=== PATIENT | female | born 1965 | race Caucasian/White ===

== ENCOUNTER → 2019-10-26 | Outpatient (CLI) | payer MEDICARE | LOC: WOUNDCARE 14:29 | PROVIDERS: ATTEND Surgery | DX: E11.622 Type 2 diabetes mellitus with other skin ulcer (principal); E11.52 Type 2 diabetes mellitus with diabetic peripheral angiopathy with gangrene; I70.261 Atherosclerosis of native arteries of extremities with gangrene, right leg; L97.212 Non-pressure chronic ulcer of right calf with fat layer exposed; I89.0 Lymphedema, not elsewhere classified; E66.01 Morbid (severe) obesity due to excess calories | CPT/HCPCS: 99204 ==

== ENCOUNTER → 2019-10-26 | Outpatient (CLI) | payer MEDICARE | LOC: LAB 16:15 | PROVIDERS: ATTEND Surgery | DX: E11.622 Type 2 diabetes mellitus with other skin ulcer (principal); I70.232 Atherosclerosis of native arteries of right leg with ulceration of calf; L97.212 Non-pressure chronic ulcer of right calf with fat layer exposed; I89.0 Lymphedema, not elsewhere classified; E66.01 Morbid (severe) obesity due to excess calories | CPT/HCPCS: 36415; 84134 ==

== ENCOUNTER → 2019-11-02 | Outpatient (CLI) | payer MEDICARE | LOC: WOUNDCARE 13:44 | PROVIDERS: ATTEND Surgery | DX: L97.212 Non-pressure chronic ulcer of right calf with fat layer exposed (principal); I89.0 Lymphedema, not elsewhere classified; E66.01 Morbid (severe) obesity due to excess calories; E11.622 Type 2 diabetes mellitus with other skin ulcer; E11.52 Type 2 diabetes mellitus with diabetic peripheral angiopathy with gangrene; I70.232 Atherosclerosis of native arteries of right leg with ulceration of calf | CPT/HCPCS: 99213 ==

== ENCOUNTER → 2019-11-09 | Outpatient (CLI) | payer MEDICARE | LOC: WOUNDCARE 13:32 | PROVIDERS: ATTEND Surgery | DX: L97.212 Non-pressure chronic ulcer of right calf with fat layer exposed (principal); I89.0 Lymphedema, not elsewhere classified; E66.01 Morbid (severe) obesity due to excess calories; E11.622 Type 2 diabetes mellitus with other skin ulcer; E11.52 Type 2 diabetes mellitus with diabetic peripheral angiopathy with gangrene | CPT/HCPCS: 99212 ==

== ENCOUNTER 2019-11-11 11:51 | Outpatient (RCR) | payer MEDICARE | END 2019-12-14 14:00 | disposition home or self-care (01) | PROVIDERS: ATTEND Surgery | DX: E11.622 Type 2 diabetes mellitus with other skin ulcer (principal); L97.212 Non-pressure chronic ulcer of right calf with fat layer exposed; I89.0 Lymphedema, not elsewhere classified; E66.01 Morbid (severe) obesity due to excess calories ==

== ENCOUNTER → 2019-11-16 | Outpatient (CLI) | payer MEDICARE | LOC: WOUNDCARE 13:29 | PROVIDERS: ATTEND Surgery | DX: L97.211 Non-pressure chronic ulcer of right calf limited to breakdown of skin (principal); I89.0 Lymphedema, not elsewhere classified; E66.01 Morbid (severe) obesity due to excess calories; E11.622 Type 2 diabetes mellitus with other skin ulcer; E11.52 Type 2 diabetes mellitus with diabetic peripheral angiopathy with gangrene | CPT/HCPCS: 99213 ==

== ENCOUNTER → 2019-11-30 | Outpatient (CLI) | payer MEDICARE | LOC: WOUNDCARE 13:07 | PROVIDERS: ATTEND Surgery | DX: E11.622 Type 2 diabetes mellitus with other skin ulcer (principal); L97.211 Non-pressure chronic ulcer of right calf limited to breakdown of skin; I89.0 Lymphedema, not elsewhere classified; E66.01 Morbid (severe) obesity due to excess calories | CPT/HCPCS: 99213 ==

== ENCOUNTER 2019-12-14 14:11 | Outpatient (RCR) | payer MEDICARE ==
[2020-01-16] MEDS ORDERED: IBUP-1780 PO (20:04)
[2020-01-16] MEDS ORDERED: PRD20T PO (20:04)
[2020-01-16] MEDS ORDERED: BENZ-13 PO (20:04)
[2020-01-16] MEDS ORDERED: AZIT250T12 PO (20:04)
[2020-01-16] MEDS ORDERED: ALBU90AE2 IH (20:05)
== END 2020-02-03 15:05 | disposition home or self-care (01) ==
PROVIDERS: ATTEND Family Medicine
DX: E11.622 Type 2 diabetes mellitus with other skin ulcer (principal); L97.212 Non-pressure chronic ulcer of right calf with fat layer exposed; I89.0 Lymphedema, not elsewhere classified; E66.01 Morbid (severe) obesity due to excess calories

== ENCOUNTER 2020-01-16 16:30 | Emergency (ER) | payer MEDICARE ==
[~2020-01-16] VITALS: Ht 165.1 cm; Wt 175.4 kg
[2020-01-16] MEDS ORDERED: RT-ALBUTEROL/IPRATROPIUM 3 ML (DUONEB) VIAL INH ONE ×2 (17:15→20:00)
--- NOTE | 2020-01-16 17:19 | Diagnostic Imaging Report ---
INDICATION: Hypoxia, shortness of breath. EXAMINATION: Frontal chest was obtained at 5:05 p.m. FINDINGS: Heart and mediastinal silhouette are normal in appearance. The lungs appear clear. There is no pneumothorax or pleural fluid. IMPRESSION: No acute process in the chest. Dictated by: Dictated on workstation # [id number]
[2020-01-16 18:57] LABS: HEMATOCRIT 39 % (35-52); HEMOGLOBIN 12.8 G/DL (11.5-16.0); MEAN CORPUSCULAR HEMOGLOBIN 32 PG (25-34); MEAN CORPUSCULAR HGB CONC 33 G/DL (32-36); MEAN CORPUSCULAR VOLUME 99 FL (80-99); MEAN PLATELET VOLUME 10.2 FL (7.4-10.4); PLATELET COUNT 179 10^3/uL (130-400); RED CELL DISTRIBUTION WIDTH 14.8 % (10.0-14.5); WHITE BLOOD COUNT 15.4 10^3/uL (4.3-11.0)
[2020-01-16 18:58] LABS: BASOPHILS % (AUTO) 0 % (0-10); EOSINOPHILS % (AUTO) 0 % (0-10); LYMPHOCYTES # (AUTO) 0.4 X 10^3 (1.0-4.0); LYMPHOCYTES % (AUTO) 3 % (12-44); MONOCYTES # (AUTO) 0.6 X 10^3 (0.0-1.0); MONOCYTES % (AUTO) 4 % (0-12); NEUTROPHILS # (AUTO) 14.3 X 10^3 (1.8-7.8); NEUTROPHILS % (AUTO) 93 % (42-75)
[2020-01-16 19:12] LABS: BAND NEUTROPHILS 7 %; BASOPHILS % (MANUAL) 0 %; EOSINOPHILS % (MANUAL) 0 %; LYMPHOCYTES % (MANUAL) 4 %; MONOCYTES % (MANUAL) 3 %; NEUTROPHILS % (MANUAL) 86 %
[2020-01-16] MEDS ORDERED: ACETAMINOPHEN 500 MG TAB (TYLENOL) PO ONE (19:30)
[2020-01-16 19:34] LABS: BUN/CREATININE RATIO 24; CALCIUM 9.2 MG/DL (8.5-10.1); CARBON DIOXIDE 23 MMOL/L (21-32); CHLORIDE 100 MMOL/L (98-107); CREATININE SERUM 0.58 MG/DL (0.60-1.30); GFR ESTIMATED > 60; GLUCOSE 173 MG/DL (70-105); SODIUM 137 MMOL/L (135-145)
[2020-01-16] MEDS ORDERED: predniSONE 20 MG TAB PO ONE (20:00)
[2020-01-16] MEDS ORDERED: AZITHROMYCIN 250 MG TAB (ZITHROMAX) PO ONE (20:00)
[2020-01-16] MEDS ORDERED: BENZ-13 PO (20:04)
[2020-01-16] MEDS ORDERED: PRD20T PO (20:04)
[2020-01-16] MEDS ORDERED: IBUP-1780 PO (20:04)
[2020-01-16] MEDS ORDERED: AZIT250T12 PO (20:04)
[2020-01-16] MEDS ORDERED: ALBU90AE2 IH (20:05)
--- NOTE | 2020-01-16 20:09 | ED General ---
General Chief Complaint: Respiratory Problems Stated Complaint: SOA, HIGH BP, LOW O2 Nursing Triage Note: Patient presents to the ED with c/o shortness of breath on with activity, fever, and chills. She states that her symptoms began today and when she woke up around 1:30 she was experiencing fever and chills as well. Nursing Sepsis Screen: Possible Severe Sepsis Risk Source of Information: Patient History of Present Illness Date Seen by Provider: Jan 16, 2020 Time Seen by Provider: 17:30 Initial Comments Patient is a 54-year-old female who comes to the emergency department complaining of cough, myalgias, malaise, and some shortness of breath. Her shortness of breath started earlier today but she has been ill starting last night. She does describe some fever and chills at home. No ill contacts. Patient does not have history of congestive heart failure. She does not describe worsening orthopnea or dyspnea on exertion. Allergies and Home Medications Allergies Coded Allergies: adhesive tape (Unverified Allergy, Unknown, 01/16/20) Home Medications Albuterol Sulfate 90 Mcg Aer.pw.bas, 90 MCG IH Q4H Prescribed by: MADELINE WOLFF on 01/16/202004 Azithromycin 250 Mg Tablet, 250 MG PO DAILY Prescribed by: MADELINE WOLFF on 01/16/202003 Benzonatate 100 Mg Capsule, 100 MG PO TID Prescribed by: MADELINE WOLFF on 01/16/202003 Ibuprofen 800 Mg Tablet, 800 MG PO Q8H PRN for PAIN-MILD Prescribed by: MADELINE WOLFF on 01/16/202003 Prednisone 20 Mg Tab, 40 MG PO DAILY Prescribed by: MADELINE WOLFF on 01/16/202003 Patient Home Medication List Home Medication List Reviewed: Yes Review of Systems Review of Systems Constitutional: see HPI EENTM: nose congestion Respiratory: cough Cardiovascular: no symptoms reported Genitourinary: no symptoms reported Musculoskeletal: muscle stiffness Skin: no symptoms reported All Other Systems Reviewed Negative Unless Noted: Yes Past Tjazqem-Izqvpp-Nuzmmb Hx Patient Social History Alcohol Use: Denies Use Recreational Drug Use: No Smoking Status: Never a Smoker 2nd Hand Smoke Exposure: No Recent Foreign Travel: No Contact w/Someone Who Travel: No Recent Infectious Disease Expo: No Recent Hopitalizations: No Physical Abuse: No Sexual Abuse: No Mistreated: No Fear: No Seasonal Allergies Seasonal Allergies: No Past Medical History Surgeries: Yes (Gastric bypass) Gallbladder Respiratory: No Cardiac: Yes Chronic Edema/Swelling, High Cholesterol, Hypertension Neurological: No Genitourinary: No Gastrointestinal: Yes Gastroesophageal Reflux Musculoskeletal: No (Restless leg syndrome) Endocrine: Yes Diabetes, Non-Insulin dep HEENT: No Cancer: No Psychosocial: Yes Anxiety, Depression Integumentary: No Blood Disorders: No Physical Exam Vital Signs Vital Signs - First Documented 01/16/20 16:40 Temp 38.2 Pulse 98 Resp 22 B/P (MAP) 190/60 (103) Pulse Ox 97 O2 Delivery Room Air Capillary Refill : Less Than 3 Seconds Height, Weight, BMI Height: '" Weight: lbs. oz. kg; 64.00 BMI Method: General Appearance: No Apparent Distress, WD/WN HEENT: PERRL/EOMI, TMs Normal Neck: Full Range of Motion, Supple Respiratory: Other (some congested lung sounds but overall good air movement and no increased work of breathing while at rest) Cardiovascular: Regular Rate, Rhythm Rectal: Normal Exam Extremity: Normal Capillary Refill Neurologic/Psychiatric: Alert, Oriented x3 Skin: Normal Color, Warm/Dry Progress/Results/Core Measures Suspected Sepsis Recent Fever Within 48 Hours: Yes Infection Criteria Present: Suspected New Infection New/Unexplained Altered Menta: No Sepsis Screen: Possible Severe Sepsis Risk SIRS Temperature: Pulse: 98 Respiratory Rate: 22 Laboratory Tests 01/16/20 08:48: White Blood Count 15.4H Blood Pressure 190 /60 Mean: 103 Laboratory Tests 01/16/20 08:48: Creatinine 0.58L, Platelet Count 179 Results/Orders Lab Results Laboratory Tests Test 01/16/20 08:48 Range/Units White Blood Count 15.4 H 4.3-11.0 10^3/uL Red Blood Count 3.98 L 4.35-5.85 10^6/uL Hemoglobin 12.8 11.5-16.0 G/DL Hematocrit 39 35-52 % Mean Corpuscular Volume 99 80-99 FL Mean Corpuscular Hemoglobin 32 25-34 PG Mean Corpuscular Hemoglobin Concent 33 32-36 G/DL Red Cell Distribution Width 14.8 H 10.0-14.5 % Platelet Count 179 130-400 10^3/uL Mean Platelet Volume 10.2 7.4-10.4 FL Neutrophils (%) (Auto) 93 H 42-75 % Lymphocytes (%) (Auto) 3 L 12-44 % Monocytes (%) (Auto) 4 0-12 % Eosinophils (%) (Auto) 0 0-10 % Basophils (%) (Auto) 0 0-10 % Neutrophils # (Auto) 14.3 H 1.8-7.8 X 10^3 Lymphocytes # (Auto) 0.4 L 1.0-4.0 X 10^3 Monocytes # (Auto) 0.6 0.0-1.0 X 10^3 Eosinophils # (Auto) 0.0 0.0-0.3 10^3/uL Basophils # (Auto) 0.0 0.0-0.1 10^3/uL Neutrophils % (Manual) 86 % Lymphocytes % (Manual) 4 % Monocytes % (Manual) 3 % Eosinophils % (Manual) 0 % Basophils % (Manual) 0 % Band Neutrophils 7 % Sodium Level 137 135-145 MMOL/L Potassium Level 4.0 3.6-5.0 MMOL/L Chloride Level 100 98-107 MMOL/L Carbon Dioxide Level 23 21-32 MMOL/L Anion Gap 14 5-14 MMOL/L Blood Urea Nitrogen 14 7-18 MG/DL Creatinine 0.58 L 0.60-1.30 MG/DL Estimat Glomerular Filtration Rate > 60 BUN/Creatinine Ratio 24 Glucose Level 173 H 70-105 MG/DL Calcium Level 9.2 8.5-10.1 MG/DL Troponin I < 0.30 <0.30 NG/ML Pro-B-Type Natriuretic Peptide 414.6 H <75.0 PG/ML Micro Results Microbiology 01/16/20 Influenza Types A,B Antigen (JOSH) - Final, Complete My Orders Orders - MADELINE WOLFF DO Influenza A And B Antigens (01/16/20 16:50) Chest 1 View Ap/Pa Only (01/16/20 16:50) Albuterol/Ipra Inhalation Soln (Duoneb I (01/16/20 17:15) Svn Small Volume Nebulizer (01/16/20 17:14) Ed Iv/Invasive Line Start (01/16/20 17:27) Cbc With Automated Diff (01/16/20 17:27) Basic Metabolic Panel (01/16/20 17:27) Probnp Fs (01/16/20 17:27) Troponin I Fs (01/16/20 17:27) Continuous Ekg Monitoring (01/16/20 17:27) Manual Differential (01/16/20 08:48) Acetaminophen Tablet (Tylenol Tablet) (01/16/20 19:30) Azithromycin Tablet (Zithromax Tablet) (01/16/20 20:00) Prednisone Tablet (Deltasone Tablet) (01/16/20 20:00) Albuterol/Ipra Inhalation Soln (Duoneb I (01/16/20 20:00) Svn Small Volume Nebulizer (01/16/20 19:50) Medications Given in ED Current Medications Medications Dose Ordered Sig/Fede Route Start Time Stop Time Status Last Admin Dose Admin Acetaminophen 1,000 mg ONCE ONCE PO 01/16/20 19:30 01/16/20 19:31 DC 01/16/20 19:31 1,000 MG Albuterol/ Ipratropium 3 ml ONCE ONCE INH 01/16/20 17:15 01/16/20 17:16 DC 01/16/20 17:35 3 ML Vital Signs/I&O 01/16/20 16:40 Temp 38.2 Pulse 98 Resp 22 B/P (MAP) 190/60 (103) Pulse Ox 97 O2 Delivery Room Air Capillary Refill : Less Than 3 Seconds Blood Pressure Mean: 103 Progress Note : Time: 20:09 Progress Note ED summary: Patient is an obese female who comes to the ER with shortness of breath and productive cough. She became ill over the last 24 hours and her symptoms came on suddenly. Although she has a syndrome very suspicious for influenza, her screening test in the ER is negative. She had some congested lung sounds on arrival and was given a DuoNeb treatment. This completely resolved her symptoms and her lungs were entirely clear after that. Prior to discharge, she was given an additional nebulized treatment and continued to feel well. Her x- ray was negative. She was noted to have mild elevation of white count. Suspect the patient either to actually be flu positive or have a cold pneumonia. She does not meet admission criteria and has no hypoxia and her dyspnea symptoms are improved. Patient is discharged home. She is given medication for symptom relief along with azithromycin and prednisone over the next 4 days. The first dose of these medications was given in the ER. Patient was agreeable to this plan of care. She will follow-up with her primary care doctor or come back to the ER for any new or worsening symptoms. Departure Impression Primary Impression: Pneumonia Disposition: 01 HOME, SELF-CARE Condition: Improved Departure-Patient Inst. Patient Instructions: Pneumonia, Adult (DC) Scripts Albuterol Sulfate (Proair Digihaler) 90 Mcg Aer.pw.bas 90 MCG IH Q4H for Wheezing, #1 INHALER Prov: MADELINE WOLFF DO 01/16/20 Benzonatate (Tessalon Perle) 100 Mg Capsule 100 MG PO TID for Cough, #21 CAP Prov: MADELINE WOLFF DO 01/16/20 Ibuprofen (Ibuprofen) 800 Mg Tablet 800 MG PO Q8H PRN for PAIN-MILD, #21 TAB Prov: MADELINE WOLFF DO 01/16/20 Prednisone (Prednisone) 20 Mg Tab 40 MG PO DAILY for 4 Days, #8 TAB 0 Refills Prov: MADELINE WOLFF DO 01/16/20 Azithromycin (Azithromycin) 250 Mg Tablet 250 MG PO DAILY, #4 TAB 0 Refills Prov: MADELINE WOLFF DO 01/16/20 MADELINE WOLFF DO Jan 16, 2020 20:08
[2020-01-16 20:36] VITALS: BP 138/62
== END 2020-01-16 20:37 | disposition home or self-care (01) ==
LOC: EDUNIT# 16:30 → ER FS 16:31
DX: J18.9 Pneumonia, unspecified organism (principal); E11.9 Type 2 diabetes mellitus without complications; Z88.8 Allergy status to other drugs, medicaments and biological substances
CPT/HCPCS: 36415; 71045; 80048; 83880; 84484; 85007; 85027; 87804

== ENCOUNTER 2020-02-12 09:16 | Emergency (ER) | payer MEDICARE ==
[~2020-02-12] VITALS: Ht 170.1 cm; Wt 166.6 kg
[~2020-02-12 09:16] MED LIST: ALBU90AE2 IH; AZIT250T12 PO; BENZ-13 PO; IBUP-1780 PO; PRD20T PO
[2020-02-12] MEDS ORDERED: KETOROLAC 60 MG/2 ML VIAL IM STA (09:26)
[2020-02-12] MEDS ORDERED: ORPHENADRINE 60 MG/2 ML (NORFLEX) AMP IM STA (09:26)
--- NOTE | 2020-02-12 09:26 | ED General ---
General Stated Complaint: BACK PAIN, LEG NUMBNESS Source of Information: Patient Exam Limitations: No Limitations History of Present Illness Date Seen by Provider: Feb 12, 2020 Time Seen by Provider: 09:20 Initial Comments 54-year-old female presents with a multitude of issues. Patient reports decreased appetite. Constipation. Patient reports that she's had low back pain for at least a month. That now the pain radiates down her left leg. She reports she been constipated for 6 days. She is tried milk of magnesium 4 times with no relief. Patient pain is in the left lumbar region. She does not have any acute i njury. Patient reports a lot of her symptoms started after a urinary tract infection and medication for it. Patient denies any narcotics. He should does have a history of a gastric sleeve seizure. She does not have any fevers or chills. She denies any urinary tract symptoms at this time Allergies and Home Medications Allergies Coded Allergies: adhesive tape (Unverified Allergy, Unknown, 01/16/20) Home Medications Albuterol Sulfate 90 Mcg Aer.pw.bas, 90 MCG IH Q4H Prescribed by: MADELINE WOLFF on 01/16/202004 Azithromycin 250 Mg Tablet, 250 MG PO DAILY Prescribed by: MADELINE WOLFF on 01/16/202003 Benzonatate 100 Mg Capsule, 100 MG PO TID Prescribed by: MADELINE WOLFF on 01/16/202003 Ibuprofen 800 Mg Tablet, 800 MG PO Q8H PRN for PAIN-MILD Prescribed by: MADELINE WOLFF on 01/16/202003 Prednisone 20 Mg Tab, 40 MG PO DAILY Prescribed by: MADELINE WOLFF on 01/16/202003 Patient Home Medication List Home Medication List Reviewed: Yes Review of Systems Review of Systems Constitutional: No chills; malaise EENTM: no symptoms reported Respiratory: No cough Cardiovascular: no symptoms reported Gastrointestinal: constipation, loss of appetite Musculoskeletal: see HPI, back pain Skin: no symptoms reported Psychiatric/Neurological: See HPI Past Pchsuaa-Etswcv-Frtyhs Hx Past Med/Social Hx: Reviewed Nursing Past Med/Soc Hx Patient Social History 2nd Hand Smoke Exposure: No Recent Hopitalizations: No Seasonal Allergies Seasonal Allergies: No Past Medical History Surgeries: Yes (Gastric bypass) Gallbladder Respiratory: No Cardiac: Yes Chronic Edema/Swelling, High Cholesterol, Hypertension Neurological: No Genitourinary: No Gastrointestinal: Yes Gastroesophageal Reflux Musculoskeletal: No (Restless leg syndrome) Endocrine: Yes Diabetes, Non-Insulin dep HEENT: No Cancer: No Psychosocial: Yes Anxiety, Depression Integumentary: No Blood Disorders: No Physical Exam Vital Signs Vital Signs - First Documented 02/12/20 09:21 Temp 36.9 Pulse 93 Resp 20 B/P (MAP) 160/69 (99) Pulse Ox 98 O2 Delivery Room Air Capillary Refill : Height, Weight, BMI Height: '" Weight: lbs. oz. kg; 64.00 BMI Method: General Appearance: Obese (morbid), Other (very dramatic and animated) Eyes: Bilateral Eye Normal Inspection Neck: Non Tender, Supple Respiratory: Lungs Clear, Normal Breath Sounds, No Accessory Muscle Use Cardiovascular: Regular Rate, Rhythm Gastrointestinal: Non Tender, Soft Back: No Vertebral Tenderness, Other (tenderness to left lower region) Neurologic/Psychiatric: Alert, Oriented x3 Skin: No Rash Progress/Results/Core Measures Suspected Sepsis SIRS Temperature: Pulse: Respiratory Rate: Laboratory Tests 02/12/20 10:12: White Blood Count 9.2 Blood Pressure / Mean: Laboratory Tests 02/12/20 10:12: Creatinine 0.52L, Platelet Count 305, Total Bilirubin 0.4 Results/Orders Lab Results Laboratory Tests Test 02/12/20 10:12 Range/Units White Blood Count 9.2 4.3-11.0 10^3/uL Red Blood Count 3.67 L 4.35-5.85 10^6/uL Hemoglobin 11.4 L 11.5-16.0 G/DL Hematocrit 35 35-52 % Mean Corpuscular Volume 96 80-99 FL Mean Corpuscular Hemoglobin 31 25-34 PG Mean Corpuscular Hemoglobin Concent 32 32-36 G/DL Red Cell Distribution Width 14.5 10.0-14.5 % Platelet Count 305 130-400 10^3/uL Mean Platelet Volume 9.5 7.4-10.4 FL Neutrophils (%) (Auto) 80 H 42-75 % Lymphocytes (%) (Auto) 9 L 12-44 % Monocytes (%) (Auto) 9 0-12 % Eosinophils (%) (Auto) 1 0-10 % Basophils (%) (Auto) 0 0-10 % Neutrophils # (Auto) 7.4 1.8-7.8 X 10^3 Lymphocytes # (Auto) 0.9 L 1.0-4.0 X 10^3 Monocytes # (Auto) 0.8 0.0-1.0 X 10^3 Eosinophils # (Auto) 0.1 0.0-0.3 10^3/uL Basophils # (Auto) 0.0 0.0-0.1 10^3/uL Sodium Level 140 135-145 MMOL/L Potassium Level 3.5 L 3.6-5.0 MMOL/L Chloride Level 101 98-107 MMOL/L Carbon Dioxide Level 25 21-32 MMOL/L Anion Gap 14 5-14 MMOL/L Blood Urea Nitrogen 11 7-18 MG/DL Creatinine 0.52 L 0.60-1.30 MG/DL Estimat Glomerular Filtration Rate > 60 BUN/Creatinine Ratio 21 Glucose Level 166 H 70-105 MG/DL Calcium Level 9.3 8.5-10.1 MG/DL Corrected Calcium 9.9 8.5-10.1 MG/DL Total Bilirubin 0.4 0.1-1.0 MG/DL Aspartate Amino Transf (AST/SGOT) 19 5-34 U/L Alanine Aminotransferase (ALT/SGPT) 18 0-55 U/L Alkaline Phosphatase 146 H 40-136 U/L Total Protein 8.7 H 6.4-8.2 GM/DL Albumin 3.3 3.2-4.5 GM/DL Micro Results Microbiology 02/12/20 Influenza Types A,B Antigen (JOSH) - Final, Complete My Orders Orders - DI ARAGON DO Cbc With Automated Diff (02/12/20 09:26) Comprehensive Metabolic Panel (02/12/20 09:26) Ua Culture If Indicated (02/12/20:26) Influenza A And B Antigens (02/12/20:26) Abdomen Flat & Upright/Decub (02/12/20 09:26) Lumbar Spine 2 Or 3 View (02/12/20 09:26) Ketorolac Injection (Toradol Injection) (02/12/20 09:26) Orphenadrine Injection (Norflex Injectio (02/12/20 09:26) Magnesium Citrate Oral Soln (Citrate Of (02/12/20 10:15) Hyoscyamine Sl Tablet (Levsin Sl Tablet) (02/12/20 10:45) Medications Given in ED Current Medications Medications Dose Ordered Sig/Fede Route Start Time Stop Time Status Last Admin Dose Admin Magnesium Citrate 300 ml ONCE ONCE PO 02/12/20 10:15 02/12/20 10:16 DC 02/12/20 10:25 300 ML Vital Signs/I&O 02/12/20 09:21 Temp 36.9 Pulse 93 Resp 20 B/P (MAP) 160/69 (99) Pulse Ox 98 O2 Delivery Room Air Capillary Refill : Progress Note : Time: 11:07 Progress Note Patient with lower lumbar spasm with scatica. That improved significantly with Toradol and Norflex. Patient also has significant constipation. Patient will be prescribed Flexeril for her sciatica. Patient was given mag citrate for her constipation. She was offered an enema but declined at this time. I recommend she use MiraLAX at least 5 times daily until soft daily stool with plenty of fluids and ambulation. She should return to the ER if symptoms worsen. Patient prefers to try the mag citrate and MiraLAX before having the obtain an enema. She is discharged home in stable condition. Diagnostic Imaging Diagonstic Imaging: Xray Comments NAME: TRUNG HASSAN [facility] REC#: [id number] PT STATUS: REG ER : 1965 PHYSICIAN: DI ARAGON DO ADMIT DATE: 02/12/20/ER FS Draft Date of Exam:02/12/20 ABDOMEN FLAT & UPRIGHT/DECUB INDICATION: Severe abdominal pain. COMPARISON: None. DISCUSSION: Five views of the abdomen were obtained. Constipation is noted. No pneumatosis or pneumoperitoneum. No abnormal small bowel loops are identified. The gallbladder appears to be surgically absent. The lung bases are unremarkable. Advanced degenerative disease noted within the lumbar spine. IMPRESSION: 1. Constipation DILLAN: TRUNG HASSAN MED REC#: [id number] PT STATUS: REG ER : 1965 PHYSICIAN: DI ARAGON DO ADMIT DATE: 02/12/20/ER FS Draft Date of Exam:02/12/20 LUMBAR SPINE 2 OR 3 VIEW INDICATION: Severe low back pain with lower extremity radiculopathy. COMPARISON: None. DISCUSSION: Three views of the lumbosacral spine were obtained. Mild levoscoliosis is noted. Advanced facet arthropathy is noted diffusely. Advanced degenerative disc disease is present from L2 through S1. Mild T11 compression deformity, likely chronic. No acute fracture or subluxation identified. Soft tissues are unremarkable. IMPRESSION: 1. Advanced degenerative disease of the lumbar spine as described. No acute fracture. Mild T11 compression deformity appears chronic. Departure Impression Primary Impression: Lumbar radiculopathy Additional Impressions: Sciatica of left side Constipation Qualified Codes: K59.00 - Constipation, unspecified Disposition: HOME, SELF-CARE Condition: Stable Departure-Patient Inst. Referrals: SELF,KEYSHA NGUYỄN (PCP/Family) Primary Care Physician Patient Instructions: Sciatica Exercises, Constipation in Adults, Sciatica (DC), Lumbar Muscle Strain (DC) Add. Discharge Instructions: MiraLAX at least 5 times daily, drink plenty of fluids, ambulation for constipation Emergency department focuses on treating and ruling out life-threatening diseases. Whenever possible, a diagnosis is given. However, most patients are given an impression based on their history, physical exam, and workup during your brief time in the ER. Information about probable diagnosis and other educational material has been provided. Please take the time to read and understand this information. It is very important that you follow up with a physician as discussed during the visit today. Failure to adhere to your follow-up instructions may lead to severe disability, injury, or so please make sure to keep your appointments or obtain one as requested. Please keep in mind the emergency department is not designed to your primary care or "family doctor" and nonurgent issues are best evaluated by an outpatient physician Scripts Hyoscyamine Sulfate (Levsin-Sl) 0.125 Mg Tab.subl 0.125 MG SL Q4H, #10 TAB 0 Refills Prov: AURELIANO ARAGONR L DO 02/12/20 Cyclobenzaprine HCl (Cyclobenzaprine HCl) 10 Mg Tablet 10 MG PO Q8H PRN for SPASMS, #15 TAB 0 Refills Prov: AURELIANO ARAGONR L DO 02/12/20 DI ARAGON DO Feb 12, 2020 09:26
--- NOTE | 2020-02-12 10:09 | Diagnostic Imaging Report ---
INDICATION: Severe abdominal pain. COMPARISON: None. DISCUSSION: Five views of the abdomen were obtained. Constipation is noted. No pneumatosis or pneumoperitoneum. No abnormal small bowel loops are identified. The gallbladder appears to be surgically absent. The lung bases are unremarkable. Advanced degenerative disease noted within the lumbar spine. IMPRESSION: 1. Constipation. Dictated by: Dictated on workstation # [id number]
--- NOTE | 2020-02-12 10:10 | Diagnostic Imaging Report ---
INDICATION: Severe low back pain with lower extremity radiculopathy. COMPARISON: None. DISCUSSION: Three views of the lumbosacral spine were obtained. Mild levoscoliosis is noted. Advanced facet arthropathy is noted diffusely. Advanced degenerative disc disease is present from L2 through S1. Mild T11 compression deformity, likely chronic. No acute fracture or subluxation identified. Soft tissues are unremarkable. IMPRESSION: 1. Advanced degenerative disease of the lumbar spine as described. No acute fracture. Mild T11 compression deformity appears chronic. Dictated by: Dictated on workstation # [id number]
[2020-02-12] MEDS ORDERED: MAGNESIUM CITRATE 300 ML BTL PO ONE (10:15)
[2020-02-12 10:21] LABS: WHITE BLOOD COUNT 9.2 10^3/uL (4.3-11.0)
[2020-02-12 10:22] LABS: BASOPHILS % (AUTO) 0 % (0-10); EOSINOPHILS % (AUTO) 1 % (0-10); HEMATOCRIT 35 % (35-52); HEMOGLOBIN 11.4 G/DL (11.5-16.0); LYMPHOCYTES # (AUTO) 0.9 X 10^3 (1.0-4.0); LYMPHOCYTES % (AUTO) 9 % (12-44); MEAN CORPUSCULAR HEMOGLOBIN 31 PG (25-34); MEAN CORPUSCULAR HGB CONC 32 G/DL (32-36); MEAN CORPUSCULAR VOLUME 96 FL (80-99); MEAN PLATELET VOLUME 9.5 FL (7.4-10.4); MONOCYTES % (AUTO) 9 % (0-12); NEUTROPHILS # (AUTO) 7.4 X 10^3 (1.8-7.8); NEUTROPHILS % (AUTO) 80 % (42-75); PLATELET COUNT 305 10^3/uL (130-400); RED CELL DISTRIBUTION WIDTH 14.5 % (10.0-14.5)
[2020-02-12 10:23] LABS: EOSINOPHILS # (AUTO) 0.1 10^3/uL (0.0-0.3); MONOCYTES # (AUTO) 0.8 X 10^3 (0.0-1.0)
[2020-02-12] MEDS ORDERED: HYOSCYAMINE 0.125 MG (LEVSIN) TAB SL ONE (10:45)
[2020-02-12 10:46] LABS: ALANINE AMINOTRANSFERASE 18 U/L (0-55); ALBUMIN 3.3 GM/DL (3.2-4.5); ALKALINE PHOSPHATASE 146 U/L (40-136); BILIRUBIN,TOTAL 0.4 MG/DL (0.1-1.0); BUN/CREATININE RATIO 21; CALCIUM 9.3 MG/DL (8.5-10.1); CARBON DIOXIDE 25 MMOL/L (21-32); CHLORIDE 101 MMOL/L (98-107); CREATININE SERUM 0.52 MG/DL (0.60-1.30); GFR ESTIMATED > 60; GLUCOSE 166 MG/DL (70-105); POTASSIUM 3.5 MMOL/L (3.6-5.0); SODIUM 140 MMOL/L (135-145); TOTAL PROTEIN 8.7 GM/DL (6.4-8.2)
[2020-02-12] MEDS ORDERED: CYCL10TA9 PO (11:13)
[2020-02-12] MEDS ORDERED: HYOS0.1283 SL (11:13)
[2020-02-12 11:23] VITALS: BP 133/46
--- OUTSIDE RECORDS SUMMARY | 2020-02-13 18:21 | XMS REPORT | Continuity of Care Document ---
Author Organization Unknown Address Unknown Phone Unavailable Allergies Active Description Code Type Severity Reaction Onset Reported/Identified Relationship to Patient Clinical Status Yes adhesive tape [id number] Sascha hammonds Allergy Unknown N/A 01/16/2020 Medications There is no data. Problems Date Dx Coded Attending Type Code Diagnosis Diagnosed By 10/30/1399 EDUARDO FISHER MD, Ot E11.622 TYPE 2 DIABETES MELLITUS WITH OTHER SKIN 10/30/1399 EDUARDO FISHER MD, Ot E66.01 MORBID (SEVERE) OBESITY DUE TO EXCESS CA 10/30/1399 EDUARDO FISHER MD, Ot I89 .0 LYMPHEDEMA, NOT ELSEWHERE CLASSIFIED 10/30/1399 EDUARDO FISHER MD, Ot 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 ULCER OF RIGHT CALF 10/30/1504 KEYSHA KINGSLEY MD, Ot E11.62 2 TYPE 2 DIABETES MELLITUS WITH OTHER SKIN 10/30/1504 KEYSHA KINGSLEY MD, Ot E66.01 MORBID (SEVERE) OBESITY DUE TO EXCESS CA 10/30/1504 KEYSHA KINGSLEY MD, Ot I89.0 LYMPHEDEMA, NOT ELSEWHERE CLASSIFIED 10/30/1504 KEYSHA KINGSLEY MD, Ot L97.21 2 NON-PRESSURE CHRONIC ULCER OF RIGHT CALF 10/29/2019 EDUARDO FISHER MD Ot E11.52 TYPE 2 DIABETES W DIABETIC PERIPHERAL AN 10/29/2019 EDUARDO FISHER MD, Ot E11.622 TYPE 2 DIABETES MELLITUS WITH OTHER SKIN 10/29/2019 EDUARDO FISHER MD, Ot E66.01 MORBID (SEVERE) OBESITY DUE TO EXCESS CA 10/29/2019 EDUARDO FISHER MD Ot I70.261 ATHSCL HO[place] ARTERIES OF EXTREMITIES W 10/29/2019 EDUARDO FISHER MD, Ot I89 .0 LYMPHEDEMA, NOT ELSEWHERE CLASSIFIED 10/29/2019 EDUARDO FISHER MD, Ot 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 ULCER OF RIGHT CALF 11/03/2019 EDUARDO FISHER MD, Ot E11.622 TYPE 2 DIABETES MELLITUS WITH OTHER SKIN 11/03/2019 EDUARDO FISHER MD, Ot E66.01 MORBID (SEVERE) OBESITY DUE TO EXCESS CA 11/03/2019 EDUARDO FISHER MD, Ot 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 [place]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 11/03/2019 EDUARDO FISHER MD, Ot I89 .0 LYMPHEDEMA, NOT ELSEWHERE CLASSIFIED 11/03/2019 EDUARDO FISHER MD, Ot 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 ULCER OF RIGHT CALF 11/26/2019 EDUARDO FISHER MD, Ot E11.52 TYPE 2 DIABETES W DIABETIC PERIPHERAL AN 11/26/2019 EDUARDO FISHER MD, Ot E11.622 TYPE 2 DIABETES MELLITUS WITH OTHER SKIN 11/26/2019 EDUARDO FISHER MD, Ot E66.01 MORBID (SEVERE) OBESITY DUE TO EXCESS CA 11/26/2019 EDUARDO FISHER MD, Ot I70.261 ATHSCL [place] ARTERIES OF EXTREMITIES W 11/26/2019 EDUARDO FISHER MD, Ot I89 .0 LYMPHEDEMA, NOT ELSEWHERE CLASSIFIED 11/26/2019 EDUARDO FISHER MD, Ot 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 ULCER OF RIGHT CALF 11/26/2019 EDUARDO FISHER MD, Ot E11.622 TYPE 2 DIABETES MELLITUS WITH OTHER SKIN 11/26/2019 EDUARDO FISHER MD, Ot E66.01 MORBID (SEVERE) OBESITY DUE TO EXCESS CA 11/26/2019 EDUARDO FISHER MD, Ot 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 [place]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 11/26/2019 EDUARDO FISHER MD, Ot I89 .0 LYMPHEDEMA, NOT ELSEWHERE CLASSIFIED 11/26/2019 EDUARDO FISHER MD, Ot 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 ULCER OF RIGHT CALF 11/29/2019 EDUARDO FISHER MD, Ot E11.52 TYPE 2 DIABETES W DIABETIC PERIPHERAL AN 11/29/2019 EDUARDO FISHER MD, Ot E11.622 TYPE 2 DIABETES MELLITUS WITH OTHER SKIN 11/29/2019 EDUARDO FISHER MD, Ot E66.01 MORBID (SEVERE) OBESITY DUE TO EXCESS CA 11/29/2019 EDUARDO FISHER MD, Ot 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 [place]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 11/29/2019 EDUARDO FISHER MD, Ot I89 .0 LYMPHEDEMA, NOT ELSEWHERE CLASSIFIED 11/29/2019 EDUARDO FISHER MD, Ot 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 ULCER OF RIGHT CALF 11/30/2019 EDUARDO FISHER MD, Ot E11.52 TYPE 2 DIABETES W DIABETIC PERIPHERAL AN 11/30/2019 EDUARDO FISHER MD, Ot E11.622 TYPE 2 DIABETES MELLITUS WITH OTHER SKIN 11/30/2019 EDUARDO FISHER MD Ot E66.01 MORBID (SEVERE) OBESITY DUE TO EXCESS CA 11/30/2019 EDUARDO FISHER MD, Ot I89 .0 LYMPHEDEMA, NOT ELSEWHERE CLASSIFIED 11/30/2019 EDUARDO FISHER MD Ot 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 ULCER OF RIGHT CALF 12/02/2019 EDUARDO FISHER MD, Ot E11.622 TYPE 2 DIABETES MELLITUS WITH OTHER SKIN 12/02/2019 EDUARDO FISHER MD, Ot E66.01 MORBID (SEVERE) OBESITY DUE TO EXCESS CA 12/02/2019 EDUARDO FISHER MD, Ot I89 .0 LYMPHEDEMA, NOT ELSEWHERE CLASSIFIED 12/02/2019 EDUARDO FISHER MD Ot L97.211 NON-PRS CHRONIC ULCER OF RIGHT CALF LIMI 12/07/2019 EDUARDO FISHER MD, Ot E11.52 TYPE 2 DIABETES W DIABETIC PERIPHERAL AN 12/07/2019 EDUARDO FISHER MD Ot E11.622 TYPE 2 DIABETES MELLITUS WITH OTHER SKIN 12/07/2019 EDUARDO FISHER MD Ot E66.01 MORBID (SEVERE) OBESITY DUE TO EXCESS CA 12/07/2019 EDUARDO FISHER MD, Ot I89 .0 LYMPHEDEMA, NOT ELSEWHERE CLASSIFIED 12/07/2019 EDUARDO FISHER MD Ot L97.211 NON-PRS CHRONIC ULCER OF RIGHT CALF LIMI 12/14/2019 EDUARDO FISHER MD, Ot E11.622 TYPE 2 DIABETES MELLITUS WITH OTHER SKIN 12/14/2019 EDUARDO FISHER MD Ot E66.01 MORBID (SEVERE) OBESITY DUE TO EXCESS CA 12/14/2019 EDUARDO FISHER MD Ot I89 .0 LYMPHEDEMA, NOT ELSEWHERE CLASSIFIED 12/14/2019 EDUARDO FISHER MD Ot 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 ULCER OF RIGHT CALF 12/14/2019 KEYSHA KINGSLEY MD, Ot E11.62 2 TYPE 2 DIABETES MELLITUS WITH OTHER SKIN 12/14/2019 KEYSHA KINGSLEY MD Ot E66.01 MORBID (SEVERE) OBESITY DUE TO EXCESS CA 12/14/2019 KEYSHA KINGSLEY MD Ot I89.0 LYMPHEDEMA, NOT ELSEWHERE CLASSIFIED 12/14/2019 KEYSHA KINGSLEY MD Ot L97.21 2 NON-PRESSURE CHRONIC ULCER OF RIGHT CALF 12/14/2019 SELF KEYSHA NGUYỄN Ot E11.62 2 TYPE 2 DIABETES MELLITUS WITH OTHER SKIN 12/14/2019 SELF KEYSHA NGUYỄN Ot E66.01 MORBID (SEVERE) OBESITY DUE TO EXCESS CA 12/14/2019 SELF KEYSHA NGUYỄN Ot I89.0 LYMPHEDEMA, NOT ELSEWHERE CLASSIFIED 12/14/2019 SELF KEYSHA NGUYỄN Ot L97.21 2 NON-PRESSURE CHRONIC ULCER OF RIGHT CALF 12/16/2019 SELF KEYSHA NGUYỄN Ot E11.62 2 TYPE 2 DIABETES MELLITUS WITH OTHER SKIN 12/16/2019 SELF KEYSHA NGUYỄN Ot E66.01 MORBID (SEVERE) OBESITY DUE TO EXCESS CA 12/16/2019 SELF KEYSHA NGUYỄN Ot I89.0 LYMPHEDEMA, NOT ELSEWHERE CLASSIFIED 12/16/2019 SELF KEYSHA NGUYỄN Ot L97.21 2 NON-PRESSURE CHRONIC ULCER OF RIGHT CALF 12/22/2019 EDUARDO FISHER MD, Ot E11.622 TYPE 2 DIABETES MELLITUS WITH OTHER SKIN 12/22/2019 EDUARDO FISHER MD, Ot E66.01 MORBID (SEVERE) OBESITY DUE TO EXCESS CA 12/22/2019 EDUARDO FISHER MD, Ot I89 .0 LYMPHEDEMA, NOT ELSEWHERE CLASSIFIED 12/22/2019 EDUARDO FISHER MD, Ot L97.211 NON-PRS CHRONIC ULCER OF RIGHT CALF LIMI 01/16/2020 MADELINE WOLFF DO Ot E11 .9 TYPE 2 DIABETES MELLITUS WITHOUT COMPLIC 01/16/2020 MADELINE WOLFF DO Ot J18 .9 PNEUMONIA, UNSPECIFIED ORGANISM 01/16/2020 MADELINE WOLFF DO Ot R05 COUGH 01/16/2020 MADELINE WOLFF DO Ot Z88 .8 ALLERGY STATUS TO OT DRUG/MEDS/BIOL SUB 01/16/2020 EDUARDO FISHER MD Ot E11.52 TYPE 2 DIABETES W DIABETIC PERIPHERAL AN 01/16/2020 EDUARDO FISHER MD, Ot E11.622 TYPE 2 DIABETES MELLITUS WITH OTHER SKIN 01/16/2020 EDUARDO FISHER MD, Ot E66.01 MORBID (SEVERE) OBESITY DUE TO EXCESS CA 01/16/2020 EDUARDO FISHER MD Ot I70.261 ATHSCL [place] ARTERIES OF EXTREMITIES W 01/16/2020 EDUARDO FISHER MD, Ot I89 .0 LYMPHEDEMA, NOT ELSEWHERE CLASSIFIED 01/16/2020 EDUARDO FISHER MD, Ot 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 ULCER OF RIGHT CALF 01/16/2020 EDUARDO FISHER MD, Ot E11.622 TYPE 2 DIABETES MELLITUS WITH OTHER SKIN 01/16/2020 EDUARDO FISHER MD Ot E66.01 MORBID (SEVERE) OBESITY DUE TO EXCESS CA 01/16/2020 EDUARDO FISHER MD Ot 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 [place]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 01/16/2020 EDUARDO FISHER MD, Ot I89 .0 LYMPHEDEMA, NOT ELSEWHERE CLASSIFIED 01/16/2020 EDUARDO FISHER MD Ot 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 ULCER OF RIGHT CALF 01/16/2020 EDUARDO FISHER MD Ot E11.52 TYPE 2 DIABETES W DIABETIC PERIPHERAL AN 01/16/2020 EDUARDO FISHER MD, Ot E11.622 TYPE 2 DIABETES MELLITUS WITH OTHER SKIN 01/16/2020 EDUARDO FISHER MD Ot E66.01 MORBID (SEVERE) OBESITY DUE TO EXCESS CA 01/16/2020 EDUARDO FISHER MD Ot 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 [place]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 01/16/2020 EDUARDO FISHER MD, Ot I89 .0 LYMPHEDEMA, NOT ELSEWHERE CLASSIFIED 01/16/2020 EDUARDO FISHER MD Ot 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 ULCER OF RIGHT CALF 01/16/2020 EDUARDO FISHER MD Ot E11.52 TYPE 2 DIABETES W DIABETIC PERIPHERAL AN 01/16/2020 EDUARDO FISHER MD, Ot E11.622 TYPE 2 DIABETES MELLITUS WITH OTHER SKIN 01/16/2020 EDUARDO FISHER MD Ot E66.01 MORBID (SEVERE) OBESITY DUE TO EXCESS CA 01/16/2020 EDUARDO FISHER MD Ot I89 .0 LYMPHEDEMA, NOT ELSEWHERE CLASSIFIED 01/16/2020 EDUARDO FISHER MD Ot 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 ULCER OF RIGHT CALF 01/16/2020 EDUARDO FISHER MD, Ot E11.52 TYPE 2 DIABETES W DIABETIC PERIPHERAL AN 01/16/2020 EDUARDO FISHER MD Ot E11.622 TYPE 2 DIABETES MELLITUS WITH OTHER SKIN 01/16/2020 EDUARDO FISHER MD Ot E66.01 MORBID (SEVERE) OBESITY DUE TO EXCESS CA 01/16/2020 EDUARDO FISHER MD Ot I89 .0 LYMPHEDEMA, NOT ELSEWHERE CLASSIFIED 01/16/2020 EDUARDO FISHER MD Ot L97.211 NON-PRS CHRONIC ULCER OF RIGHT CALF LIMI 01/16/2020 EDUARDO FISHER MD Ot E11.622 TYPE 2 DIABETES MELLITUS WITH OTHER SKIN 01/16/2020 EDUARDO FISHER MD Ot E66.01 MORBID (SEVERE) OBESITY DUE TO EXCESS CA 01/16/2020 EDUARDO FISHER MD Ot I89 .0 LYMPHEDEMA, NOT ELSEWHERE CLASSIFIED 01/16/2020 EDUARDO FISHER MD Ot L97.211 NON-PRS CHRONIC ULCER OF RIGHT CALF LIMI 01/16/2020 SELF KEYSHA NGUYỄN Ot E11.62 2 TYPE 2 DIABETES MELLITUS WITH OTHER SKIN 01/16/2020 SELF KEYSHA NGUYỄN Ot E66.01 MORBID (SEVERE) OBESITY DUE TO EXCESS CA 01/16/2020 SELF KEYSHA NGUYỄN Ot I89.0 LYMPHEDEMA, NOT ELSEWHERE CLASSIFIED 01/16/2020 SELF KEYSHA NGUYỄN Ot L97.21 2 NON-PRESSURE CHRONIC ULCER OF RIGHT CALF Procedures There is no data. Results Test Result Range Prealbumin - 10/26/19 16:24 Serum or plasma prealbumin measurement (mass/volume) 26.6 % 18.0-37.0 Complete blood count (CBC) with automate d white blood cell (WBC) differential - 01/16/20 08:48 Blood leukocytes automated count (number/volume) 15.4 10*3/uL 4.3-11.0 Blood erythrocytes automated count (number/volume) 3.98 10*6/uL 4.35-5.85 Venous blood hemoglobin measurement (mass/volume) 12.8 g/dL 11.5-16.0 Blood hematocrit (volume fraction) 39 % 35-52 Automated erythrocyte mean corpuscular volume 99 [ foz_us] 80-99 Automated erythrocyte mean corpuscular h emoglobin (mass per erythrocyte) 32 pg 25-34 Automated erythrocyte mean corpuscular h emoglobin concentration measurement (mass/volume) 33 g/dL 32-36 Automated erythrocyte distribution width ratio 14. 8 % 10.0- 14.5 Automated blood platelet count (count/volume) 179 10*3/uL 130-400 Automated blood platelet mean volume measurement 10.2 [foz_us] 7.4-10.4 Automated blood neutrophils/100 leukocytes 93 % 42-75 Automated blood lymphocytes/100 leukocytes 3 % 12-44 Blood monocytes/100 leukocytes 4 % 0-12 Automated blood eosinophils/100 leukocytes 0 % 0-10 Automated blood basophils/100 leukocytes 0 % 0-10 Blood neutrophils automated count (number/volume) 14.3 10*3 1.8-7.8 Blood lymphocytes automated count (number/volume) 0.4 10*3 1.0-4.0 Blood monocytes automated count (number/volume) 0. 6 10*3 0.0-1.0 Automated eosinophil count 0.0 10*3/uL 0 .0-0.3 Automated blood basophil count (count/volume) 0.0 10*3/uL 0.0-0.1 Manual absolute plasma cell count - 01/01 05/20 08:48 Blood monocytes/100 leukocytes 3 % NRG Manual blood segmented neutrophils/100 leukocytes 86 % NRG Blood band neutrophils/100 leukocytes 7 % NRG Manual blood lymphocytes/100 leukocytes 4 % NRG Manual eosinophils/100 leukocytes in nose 0 % NRG Manual blood basophils/100 leukocytes 0 % NRG Whole blood basic metabolic panel - 01/01 05/20 08:48 Serum or plasma sodium measurement (moles/volume) 137 mmol/L 135-145 Serum or plasma potassium measurement (moles/volume) 4.0 mmol/L 3.6-5.0 Serum or plasma chloride measurement (moles/volume) 100 mmol/L 98-107 Carbon dioxide 23 mmol/L 21-32 Serum or plasma anion gap determination (moles/volume) 14 mmol/L 5-14 Serum or plasma urea nitrogen measurement (mass/volume ) 14 mg/dL 7-18 Serum or plasma creatinine measurement (mass/volume) 0.58 mg/dL 0.60-1.30 Serum or plasma urea nitrogen/creatinine mass ratio 24 NRG Serum or plasma creatinine measurement w ith calculation of estimated glomerular filtration rate > NRG Serum or plasma glucose measurement (mass/volume) 173 mg/dL 70-105 Serum or plasma calcium measurement (mass/volume) 9.2 mg/dL 8.5-10.1 TROPONIN I FS - 01/16/20 08:48 TROPONIN I FS < 0.30 <0.30 PROBNP FS - 01/16/20 08:48 PROBNP FS 414.6 pg/mL <75.0 Influenza virus A and B antigen detectio n - 01/16/20 16:45 FLU RESULT NEGATIVE FOR INFLUENZA A AND B ANTIGENS BY IA NRG Complete blood count (CBC) with automate d white blood cell (WBC) differential - 02/12/20 10:12 Blood leukocytes automated count (number/volume) 9.2 10*3/uL 4.3-11.0 Blood erythrocytes automated count (number/volume) 3.67 10*6/uL 4.35-5.85 Venous blood hemoglobin measurement (mass/volume) 11.4 g/dL 11.5-16.0 Blood hematocrit (volume fraction) 35 % 35-52 Automated erythrocyte mean corpuscular volume 96 [ foz_us] 80-99 Automated erythrocyte mean corpuscular h emoglobin (mass per erythrocyte) 31 pg 25-34 Automated erythrocyte mean corpuscular h emoglobin concentration measurement (mass/volume) 32 g/dL 32-36 Automated erythrocyte distribution width ratio 14. 5 % 10.0- 14.5 Automated blood platelet count (count/volume) 305 10*3/uL 130-400 Automated blood platelet mean volume measurement 9.5 [foz_us] 7.4-10.4 Automated blood neutrophils/100 leukocytes 80 % 42-75 Automated blood lymphocytes/100 leukocytes 9 % 12-44 Blood monocytes/100 leukocytes 9 % 0-12 Automated blood eosinophils/100 leukocytes 1 % 0-10 Automated blood basophils/100 leukocytes 0 % 0-10 Blood neutrophils automated count (number/volume) 7.4 10*3 1.8-7.8 Blood lymphocytes automated count (number/volume) 0.9 10*3 1.0-4.0 Blood monocytes automated count (number/volume) 0. 8 10*3 0.0-1.0 Automated eosinophil count 0.1 10*3/uL 0 .0-0.3 Automated blood basophil count (count/volume) 0.0 10*3/uL 0.0-0.1 Influenza virus A and B antigen detectio n - 02/12/20 10:12 FLU RESULT NEGATIVE FOR INFLUENZA A AND B ANTIGENS BY IA NR Comprehensive metabolic panel - 02/12/20 10:12 Serum or plasma sodium measurement (moles/volume) 140 mmol/L 135-145 Serum or plasma potassium measurement (moles/volume) 3.5 mmol/L 3.6-5.0 Serum or plasma chloride measurement (moles/volume) 101 mmol/L 98-107 Carbon dioxide 25 mmol/L 21-32 Serum or plasma anion gap determination (moles/volume) 14 mmol/L 5-14 Serum or plasma urea nitrogen measurement (mass/volume ) 11 mg/dL 7-18 Serum or plasma creatinine measurement (mass/volume) 0.52 mg/dL 0.60-1.30 Serum or plasma urea nitrogen/creatinine mass ratio 21 NRG Serum or plasma creatinine measurement w ith calculation of estimated glomerular filtration rate > NRG Serum or plasma glucose measurement (mass/volume) 166 mg/dL 70-105 Serum or plasma calcium measurement (mass/volume) 9.3 mg/dL 8.5-10.1 Serum or plasma total bilirubin measurement (mass/volu me) 0.4 mg/dL 0.1-1.0 Serum or plasma alkaline phosphatase wesley surement (enzymatic activity/volume) 146 U/L 40-136 Serum or plasma aspartate aminotransfera se measurement (enzymatic activity/volume) 19 U/L 5-34 Serum or plasma alanine aminotransferase measurement (enzymatic activity/volume) 18 U/L 0-55 Serum or plasma protein measurement (mass/volume) 8.7 g/dL 6.4-8.2 Serum or plasma albumin measurement (mass/volume) 3.3 g/dL 3.2-4.5 CALCIUM CORRECTED 9.9 mg/dL 8.5-10.1 Encounters ACCT No. Visit Date/Time Discharge Status Pt. Type Provider Facility Loc./Unit Complaint [id number] 12/14/2019 14:11:00 15:05:00 DIS Outpatient KEYSHA KINGSLEY MD [facility] REHAB R LEG LYMPHEDEMA [id number] 01/16/2020 16:31:00 20:37:00 DIS Emergency NEW DOMADELINE L [facility] ER FS SOA, HIGH BP, LOW O2 [id number] 11/11/2019 11:51:00 14:00:00 DIS Outpatient EDUARDO FISHER MD [facility] REHAB R LEG LYMPHEDEMA [id number] 11/30/2019 13:07:00 23:59:59 CLS Outpatient EDUARDO FISHER MD [facility] [id number] 11/16/2019 13:29:00 23:59:59 CLS Outpatient EDUARDO FISHER MD [facility] [id number] 11/09/2019 13:32:00 23:59:59 CLS Outpatient EDUARDO FISHER MD [facility] [id number] 11/02/2019 13:44:00 23:59:59 CLS Outpatient EDUARDO FISHER MD [facility] [id number] 10/26/2019 16:15:00 23:59:59 CLS Outpatient EDUARDO FISHER MD [facility] LAB NON PRESSURE CHRONIC IL CER OF R CALF [id number] 10/26/2019 14:29:00 23:59:59 CLS Outpatient EDUARDO FISHER MD [facility] [id number] 02/12/2020 10:23:00 Document Registration
[2020-02-13] MEDS ORDERED: DIAZ10TA PO (20:47)
[2020-02-14] MEDS ORDERED: ERGO50006 (15:58)
[2020-02-14] MEDS ORDERED: METO-333 (15:58)
[2020-02-14] MEDS ORDERED: GABA-488 (15:58)
[2020-02-14] MEDS ORDERED: ARIP5TAB57 (15:58)
[2020-02-14] MEDS ORDERED: METF-397 (15:58)
[2020-02-14] MEDS ORDERED: ALPR0.254 (15:58)
[2020-02-14] MEDS ORDERED: ZONI100C29 (15:58)
[2020-02-14] MEDS ORDERED: VNL75T (15:58)
[2020-02-14] MEDS ORDERED: ROPI1TAB (15:58)
[2020-02-14] MEDS ORDERED: ATOR40TA70 (15:58)
[2020-02-14] MEDS ORDERED: OMEP20CA18 (15:58)
== END 2020-02-12 11:23 | disposition home or self-care (01) ==
LOC: EDUNIT# 09:16 → ER FS 09:17
DX: M54.16 Radiculopathy, lumbar region (principal); M54.42 Lumbago with sciatica, left side; K59.00 Constipation, unspecified; E11.9 Type 2 diabetes mellitus without complications; Z88.8 Allergy status to other drugs, medicaments and biological substances
CPT/HCPCS: 36415; 72100; 74019; 80053; 85025; 87804

== ENCOUNTER 2020-02-13 18:38 | Emergency (ER) | payer MEDICARE ==
[~2020-02-13 18:38] MED LIST changes: +CYCL10TA9 PO; +HYOS0.1283 SL
--- NOTE | 2020-02-13 18:40 | ED General ---
General Stated Complaint: CONSTIPATION History of Present Illness Date Seen by Provider: Feb 13, 2020 Time Seen by Provider: 18:40 Initial Comments Patient is a 54 y/o female who presents to the ER today c/o constipation. Patient was evaluated in this emergency Department for the same complaint yesterday. She was discharged home and recommended to take enemas at home as well as MiraLAX. Patient reports she has been doing this but has not been able to have a bowel movement. No fever or chills. No abdominal pain. The patient has secondary complaint of low back pain that is chronic. She does have some radicular symptoms associated with this as well. She has not had any new trauma. No difficulty with urination. Does not complain of weakness in the extremities. Today, the patient also complains of paresthesias in the legs. They are not in any specific dermatome but she simply states "I cannot feel my feet or legs. The symptoms started over the last 48 hours. She does not have loss of bowel. She has constipation. She has had no difficulty with urination. No fevers or chills. No recent trauma. Patient does have known history of diabetes. The patient at baseline is able to a blade about her house but today has been unable ambulate. She has family members helping her but due to her weight they are unable to transfer her. Patient is not weakness in the legs and she is able to move them. She simply cannot feel them. Allergies and Home Medications Allergies Coded Allergies: adhesive tape (Unverified Allergy, Unknown, 01/16/20) Home Medications Albuterol Sulfate 90 Mcg Aer.pw.bas, 90 MCG IH Q4H Prescribed by: MADELINE WOLFF on 01/16/202004 Azithromycin 250 Mg Tablet, 250 MG PO DAILY Prescribed by: MADELINE WOLFF on 01/16/202003 Benzonatate 100 Mg Capsule, 100 MG PO TID Prescribed by: MADELINE WOLFF on 01/16/202003 Cyclobenzaprine HCl 10 Mg Tablet, 10 MG PO Q8H PRN for SPASMS Prescribed by: DI ARAGON on 02/12/20 111 Diazepam 10 Mg Tablet, 10 MG PO TID Prescribed by: MADELINE WOLFF on 02/13/202046 Hyoscyamine Sulfate 0.125 Mg Tab.subl, 0.125 MG SL Q4H Prescribed by: DI ARAGON on 02/12/20 1113 Ibuprofen 800 Mg Tablet, 800 MG PO Q8H PRN for PAIN-MILD Prescribed by: MADELINE WOLFF on 01/16/202003 Prednisone 20 Mg Tab, 40 MG PO DAILY Prescribed by: MADELINE WOLFF on 01/16/202003 Patient Home Medication List Home Medication List Reviewed: Yes Review of Systems Review of Systems Constitutional: no symptoms reported Respiratory: no symptoms reported Cardiovascular: no symptoms reported Gastrointestinal: see HPI Genitourinary: see HPI Musculoskeletal: see HPI Skin: see HPI Immunological/Allergic: see HPI All Other Systems Reviewed Negative Unless Noted: Yes Past Jdswrac-Laibky-Yqujzv Hx Patient Social History 2nd Hand Smoke Exposure: No Recent Hopitalizations: No Seasonal Allergies Seasonal Allergies: No Past Medical History Surgeries: Yes (Gastric bypass) Gallbladder Respiratory: No Cardiac: Yes Chronic Edema/Swelling, High Cholesterol, Hypertension Neurological: No Genitourinary: No Gastrointestinal: Yes Gastroesophageal Reflux Musculoskeletal: No (Restless leg syndrome) Endocrine: Yes Diabetes, Non-Insulin dep HEENT: No Cancer: No Psychosocial: Yes Anxiety, Depression Integumentary: No Blood Disorders: No Physical Exam Vital Signs Vital Signs - First Documented 02/13/20 18:40 Temp 36.0 Pulse 81 Resp 18 B/P (MAP) 157/78 (104) Pulse Ox 91 O2 Delivery Room Air Capillary Refill : Height, Weight, BMI Height: '" Weight: lbs. oz. kg; 57.00 BMI Method: General Appearance: No Apparent Distress, WD/WN HEENT: PERRL/EOMI Respiratory: Lungs Clear Cardiovascular: Regular Rate, Rhythm Gastrointestinal: Non Tender (obese), Soft Extremity: Normal Capillary Refill Neurologic/Psychiatric: Alert, Oriented x3 Skin: Normal Color Progress/Results/Core Measures Suspected Sepsis SIRS Temperature: Pulse: Respiratory Rate: Blood Pressure / Mean: Results/Orders Lab Results Laboratory Tests Test 02/13/20 19:29 Range/Units Urine Color YELLOW Urine Clarity CLEAR Urine pH 7.0 5-9 Urine Specific [place] 1.05 1.016-1.022 Urine Protein NEGATIVE NEGATIVE Urine Glucose (UA) NEGATIVE NEGATIVE Urine Ketones NEGATIVE NEGATIVE Urine Nitrite NEGATIVE NEGATIVE Urine Bilirubin NEGATIVE NEGATIVE Urine Urobilinogen 0.2 < = 1.0 MG/DL Urine Leukocyte Esterase NEGATIVE NEGATIVE Urine RBC (Auto) NEGATIVE NEGATIVE Urine RBC NONE /HPF Urine WBC 5-10 H /HPF Urine Squamous Epithelial Cells 10-25 H /HPF Urine Crystals NONE /LPF Urine Bacteria FEW H /HPF Urine Casts PRESENT /LPF Urine Hyaline Casts 5-10 H /LPF Urine Mucus SMALL H /LPF Urine Culture Indicated YES My Orders Orders - MADELINE WOLFF DO Soap Suds Enema Until Clear (02/13/20 18:48) Urinalysis (02/13/20 19:05) Straight Cath For Spec.-Adult (02/13/20 19:28) Urine Culture (02/13/20 19:29) Orphenadrine Injection (Norflex Injectio (02/13/20 20:30) Magnesium Citrate Oral Soln (Citrate Of (02/13/20 20:45) Vital Signs/I&O 02/13/20 18:40 Temp 36.0 Pulse 81 Resp 18 B/P (MAP) 157/78 (104) Pulse Ox 91 O2 Delivery Room Air Capillary Refill : Progress Note : Time: 18:41 Progress Note Patient is seen and examined. Soap suds enema ordered. 08:50 pm: ED Summary: Patient is evaluated in the emergency department for the second time in 2 days for constipation. This evening, the patient also has some concerns about loss of mobility at home. On physical exam, she does not have weakness in the lower extremities. She does have numbness and tingling and some loss of sensation that is not in any specific dermatomal distribution. The major concern for her family this evening is not the constipation. The patient understands she can treat this at home. Their concern is that they have been unable to transfer her to different areas or pieces of furniture today due to the fact the patient cannot feel her legs. The patient also complains of muscle spasms in the lower back which are debilitating in terms of pain. They only occur when she is moving around and are relieved at rest. She has been using Flexeril for these without relief. I did a rectal exam as patient she has normal rectal tone. We did urinalysis which was contaminated but no infection was present. In the ER, she was given a soapsuds enema and she did pass small amounts of stool along with the fluid which was placed. I feel this patient would benefit from MRI although does not emergently need to be done. I did speak to the hospitalist on-call a couple of times about the possibility of admitting this patient either for more urgent MRI to be completed but also for PT/OT evaluation and mobility and sniffed placement if indicated. This evening, it was not felt that the patient did not meet admission criteria. Will recommend that the patient follow up with her primary doctor's office tomorrow to seek early MRI evaluation and possible home health care and PTOT which can also be done in the home. Come back to the ER for any new or worsening symptoms. Of note, the patient had lab panel completed yesterday and x-rays which did not reveal acute findings. Departure Impression Primary Impression: Paresthesia of both legs Disposition: HOME, SELF-CARE Condition: Stable Departure-Patient Inst. Referrals: SELF,KEYSHA NGUYỄN (PCP/Family) Primary Care Physician Scripts Diazepam (Valium) 10 Mg Tablet 10 MG PO TID for Muscle Spasms, #21 TAB Prov: MADELINE WOLFF DO 02/13/20 MADELINE WOLFF DO Feb 13, 2020 18:40
[2020-02-13 19:39] LABS: CLARITY,URINE CLEAR; COLOR,URINE YELLOW
[2020-02-13 19:40] LABS: BACTERIA,URINE FEW /HPF; BILIRUBIN,URINE NEGATIVE (NEGATIVE); GLUCOSE, URINE (UA) NEGATIVE (NEGATIVE); KETONES,URINE NEGATIVE (NEGATIVE); LEUKOCYTE ESTERASE ,URINE NEGATIVE (NEGATIVE); NITRITE,URINE NEGATIVE (NEGATIVE); PROTEIN,URINE NEGATIVE (NEGATIVE)
[2020-02-13] MEDS ORDERED: ORPHENADRINE 60 MG/2 ML (NORFLEX) AMP IM ONE (20:30)
[2020-02-13] MEDS ORDERED: MAGNESIUM CITRATE 300 ML BTL PO ONE ×2 (20:45→21:00)
[2020-02-13] MEDS ORDERED: DIAZ10TA PO (20:47)
[2020-02-13 21:09] VITALS: BP 146/86
--- OUTSIDE RECORDS SUMMARY | 2020-02-14 04:21 | XMS REPORT | Continuity of Care Document ---
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 10/29/2019 EDUARDO FISHER MD, Ot I89 .0 LYMPHEDEMA, NOT ELSEWHERE CLASSIFIED 10/29/2019 EDUARDO FISHER MD, Ot 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 ULCER OF RIGHT CALF 11/03/2019 EDUARDO FISHER MD, Ot E11.622 TYPE 2 DIABETES MELLITUS WITH OTHER SKIN 11/03/2019 EDUARDO FISHER MD, Ot E66.01 MORBID (SEVERE) OBESITY DUE TO EXCESS CA 11/03/2019 EDUARDO FISHER MD, Ot 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 11/03/2019 [...] 11/26/2019 EDUARDO FISHER MD, Ot 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 11/26/2019 EDUARDO FISHER MD, Ot I89 .0 LYMPHEDEMA, NOT ELSEWHERE CLASSIFIED 11/26/2019 EDUARDO FISHER MD, Ot 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 ULCER OF RIGHT CALF 11/26/2019 EDUARDO FISHER MD, Ot E11.622 TYPE 2 DIABETES MELLITUS WITH OTHER SKIN 11/26/2019 EDUARDO FISHER MD, Ot E66.01 MORBID (SEVERE) OBESITY DUE TO EXCESS CA 11/26/2019 EDUARDO FISHER MD, Ot 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 11/26/2019 [...] 11/29/2019 EDUARDO FISHER MD, Ot 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 11/29/2019 [...] 01/16/2020 EDUARDO FISHER MD Ot 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 Type Provider Facility Loc./Unit Complaint [id number] 12/14/2019 14:11:00 15:05:00 DIS Outpatient KEYSHA KINGSLEY MD [facility] REHAB R LEG LYMPHEDEMA [id number] 01/16/2020 16:31:00 20:37:00 DIS Emergency NEW DOMADELINE L [facility] ER FS SOA, HIGH BP, LOW O2 [id number] 11/11/2019 11:51:00 14:00:00 DIS Outpatient EDUARDO FISHER MD [facility] REHAB R LEG LYMPHEDEMA [id number] 11/30/2019 13:07:00 23:59:59 CLS Outpatient EDUARDO FISHER MD [facility] WOUNDCARE [id number] 11/16/2019 13:29:00 23:59:59 CLS Outpatient EDUARDO FISHER MD [facility] WOUNDCARE [id number] 11/09/2019 13:32:00 23:59:59 CLS Outpatient EDUARDO FISHER MD [facility] WOUNDCARE [id number] 11/02/2019 13:44:00 23:59:59 CLS Outpatient EDUARDO FISHER MD [facility] WOUNDCARE [id number] 10/26/2019 16:15:00 23:59:59 CLS Outpatient EDUARDO FISHER MD [facility] LAB NON PRESSURE CHRONIC IL CER OF R CALF [id number] 10/26/2019 14:29:00 23:59:59 CLS Outpatient EDUARDO FISHER MD [facility] WOUNDCARE [id number] 02/12/2020 10:23:00 Document Registration
[2020-02-14] MEDS ORDERED: METO-333 (15:58)
[2020-02-14] MEDS ORDERED: ALPR0.254 (15:58)
[2020-02-14] MEDS ORDERED: ATOR40TA70 (15:58)
[2020-02-14] MEDS ORDERED: GABA-488 (15:58)
[2020-02-14] MEDS ORDERED: ZONI100C29 (15:58)
[2020-02-14] MEDS ORDERED: METF-397 (15:58)
[2020-02-14] MEDS ORDERED: OMEP20CA18 (15:58)
[2020-02-14] MEDS ORDERED: ROPI1TAB (15:58)
[2020-02-14] MEDS ORDERED: ERGO50006 (15:58)
[2020-02-14] MEDS ORDERED: ARIP5TAB57 (15:58)
[2020-02-14] MEDS ORDERED: VNL75T (15:58)
== END 2020-02-13 21:09 | disposition home or self-care (01) ==
LOC: EDUNIT# 18:38 → ER FS 18:39
DX: R20.2 Paresthesia of skin (principal); F41.9 Anxiety disorder, unspecified; F32.9 Major depressive disorder, single episode, unspecified; Z88.8 Allergy status to other drugs, medicaments and biological substances
CPT/HCPCS: 51702; 81000; 87088

== ENCOUNTER 2020-02-14 13:04 | Emergency (ER) | payer MEDICARE ==
[~2020-02-14 13:04] MED LIST changes: +DIAZ10TA PO
--- NOTE | 2020-02-14 13:24 | ED Abdominal Pain ---
General Stated Complaint: CONSTIPATION History of Present Illness Date Seen by Provider: Feb 14, 2020 Time Seen by Provider: 13:21 Initial Comments This patient is a 54-year-old female presents to the emergency department with complaint of continued constipation. Patient states no bowel movement in the last 8 days. Patient states she been using enemas at home and viscous brown water out but has also been using ifbg-blm-msntkvt. Nerves and has even tried mag citrate. Patient weight is approximately 500 pounds the patient is bed confined. Patient has not get up and care for herself well. Patient states she is a bedpan. The patient has been in the emergency department 3 days in a row for the same patient denies any significant abdominal pain. Denies any nausea vomiting. Patient does not appear to be acutely sick. Patient states she passes gas regularly. Recommended medical evaluation and treatment as needed. Patient has chronic issues with lumbar radiculopathy. And paresthesias to the lower extremities. Patient is able to move her lower extremities at the feet wiggle her toes without issue. It seems the patient does not want up or dissipate during the physical exam of the lower extremity. This is chronic and has been noted in the past. Timing/Duration: 1 Week, Constant Severity/Quality: Mild Radiation: No Radiation Activities at Onset: None Allergies and Home Medications Allergies Coded Allergies: adhesive tape (Unverified Allergy, Unknown, 01/16/20) Home Medications Albuterol Sulfate 90 Mcg Aer.pw.bas, 90 MCG IH Q4H Prescribed by: MADELINE WOLFF on 01/16/202004 Azithromycin 250 Mg Tablet, 250 MG PO DAILY Prescribed by: MADELINE WOLFF on 01/16/202003 Benzonatate 100 Mg Capsule, 100 MG PO TID Prescribed by: MADELINE WOLFF on 01/16/202003 Cyclobenzaprine HCl 10 Mg Tablet, 10 MG PO Q8H PRN for SPASMS Prescribed by: DI ARAGON on 02/12/201112 Diazepam 10 Mg Tablet, 10 MG PO TID Prescribed by: MADELINE WOLFF on 02/13/202046 Hyoscyamine Sulfate 0.125 Mg Tab.subl, 0.125 MG SL Q4H Prescribed by: DI ARAGON on 02/12/201112 Ibuprofen 800 Mg Tablet, 800 MG PO Q8H PRN for PAIN-MILD Prescribed by: MADELINE WOLFF on 01/16/202003 Prednisone 20 Mg Tab, 40 MG PO DAILY Prescribed by: MADELINE WOLFF on 01/16/202003 Patient Home Medication List Home Medication List Reviewed: Yes Review of Systems Review of Systems Constitutional: no symptoms reported; No see HPI, No chills, No diaphoresis, No dizziness, No fever, No malaise, No weakness, No weight gain, No weight loss, No other EENTM: No Symptoms Reported; No See HPI, No Blurred Vision, No Double Vision, No Eye Pain, No Eye Tearing, No Ear Drainage, No Ear Pain, No Mouth Pain, No Mouth Swelling, No Nose Congestion, No Nose Pain, No Throat Pain, No Throat Swelling, No Other Respiratory: No Symptoms Reported; Denies See HPI, Denies Cough, Denies Orthopnea, Denies Shortness of Air, Denies SOA With Exertion, Denies SOA at Rest, Denies Stridor, Denies Wheezing, Denies Other Cardiovascular: No Symptoms Reported; Denies See HPI, Denies Chest Pain, Denies Edema, Denies Irregular Heart Rate, Denies Lightheadedness, Denies Palpitations, Denies Syncope, Denies Other Gastrointestinal: Denies No Symptoms Reported; See HPI; Denies Abdomen Distended, Denies Abdominal Pain, Denies Blood Streaked Stools; Constipated; Denies Diarrhea, Denies Difficulty Swallowing, Denies Nausea, Denies Poor Appetite, Denies Poor Fluid Intake, Denies Rectal Bleeding, Denies Vomiting, Denies Other Genitourinary: No Symptoms Reported; Denies See HPI, Denies Burning, Denies Discharge, Denies Drainage, Denies Frequency, Denies Flank Pain, Denies Hematuri a, Denies Incontinence, Denies Pain, Denies Urgency, Denies Other Musculoskeletal: no symptoms reported; No see HPI, No back pain, No gout, No joint pain, No joint swelling, No muscle pain, No muscle stiffness, No muscle cramps, No muscle twitching, No muscle weakness, No neck pain, No other Past Yzalqel-Ssaygb-Wkicop Hx Patient Social History 2nd Hand Smoke Exposure: No Recent Foreign Travel: Yes Recent Hopitalizations: No Seasonal Allergies Seasonal Allergies: No Past Medical History Surgeries: Yes (Gastric bypass) Gallbladder Respiratory: No Cardiac: Yes Chronic Edema/Swelling, High Cholesterol, Hypertension Neurological: No Genitourinary: No Gastrointestinal: Yes Gastroesophageal Reflux Musculoskeletal: No (Restless leg syndrome) Endocrine: Yes Diabetes, Non-Insulin dep HEENT: No Cancer: No Psychosocial: Yes Anxiety, Depression Integumentary: No Blood Disorders: No Physical Exam Vital Signs Vital Signs - First Documented 02/14/20 13:40 Temp 36.1 Pulse 87 Resp 16 B/P (MAP) 126/65 (85) Pulse Ox 99 Capillary Refill : Height/Weight/BMI Height: '" Weight: lbs. oz. kg; 57.00 BMI Method: General Appearance: WD/WN, no apparent distress HEENT: PERRL/EOMI, normal ENT inspection, TMs normal, pharynx normal Neck: non-tender, full range of motion, supple, normal inspection Respiratory: chest non-tender, lungs clear, normal breath sounds, no respiratory distress, no accessory muscle use Cardiovascular: normal peripheral pulses, regular rate, rhythm, no edema, no gallop, no JVD, no murmur Gastrointestinal: normal bowel sounds, non tender, soft, no organomegaly, no pulsatile mass Progress/Results/Core Measures Results/Orders My Orders Orders - MADELINE BENÍTEZ MD Abdomen Flat & Upright/Decub (02/14/20 13:19) Vital Signs/I&O 02/14/20 13:40 Temp 36.1 Pulse 87 Resp 16 B/P (MAP) 126/65 (85) Pulse Ox 99 Progress Progress Note : Time: 14:26 Progress Note Nursing staff did a digital disimpaction. Patient passed several large amount of stool. A lot of flatus. Patient has much relief at this time. I had a long discussion with patient's family and patient about concerns about the patient's size and lack of mobility. Discussed at length with patient and family about skilled nursing to help care for this patient. Patient was actually discussed with physician last night in the emergency department for same and was reluctant at that time. Patient's family and the patient and discuss at this time I did call and consult Dr. Frost hospitalist at [facility] that also agreed with the assessment patient most likely needs to be placed in a nursing facility. Patient significantly morbidly obese and lack of mobility is causing an exacerbation of her chronic conditions lumbar radiculopathy. The patient also appears to have some depression appears to be untreated. Nursing staff will call local medical [place] about possible placement. Dr. Frost advised that right now with the stated emergency due to the chaves virus that skilled nursing three-day requirement stay in the hospital has been waved so may be able to get the patient placed. We will continue to monitor the patient. 1500 skilled nursing has finished their assessment. They're discussing with nursing of possible disposition to either home or to the skilled nursing for rehabilita tion. Nursing Center staff will balwinder the chart accordingly. [facility] was requesting that he go into the dispositioned for home at this time. Diagnostic Imaging Diagonstic Imaging: Xray Plain Films/CT/US/NM/MRI: abdomen Comments Significant large balls of stool in the rectal vault. Significant amount of gas air in the bowel behind the stool. Departure Impression Primary Impression: Fecal impaction Additional Impressions: Morbid obesity Chronic pain Radiculopathy Depression Disposition: 01 HOME, SELF-CARE Condition: Stable Departure-Patient Inst. Decision time for Depature: 14:57 Referrals: SELF,KEYSHA NGUYỄN (PCP/Family) Primary Care Physician Patient Instructions: Depression, Fecal Impaction (DC), Obesity, Adult (DC), Health Risks of a High BMI, Radiculopathy Add. Discharge Instructions: Family is working with skilled nursing for possible disposition to skilled nursing. Patient is to continue with all home medications and a proper bowel regimen to Avoid fecal impaction due to her immobility. Encourage by mouth fluids. Cyid-ynv-gdvqbvy. Return as instructed. Follow-up with PCP in 2-3 days or skilled nursing physician. MADELINE BENÍTEZ MD Feb 14, 2020 13:23
--- NOTE | 2020-02-14 14:05 | Diagnostic Imaging Report ---
HISTORY: Abdominal pain and spasms in the left abdomen/ COMPARISON: 02/12/2020 TECHNIQUE: Upright and supine frontal views of the abdomen. FINDINGS: There are distended loops of large and small bowel throughout the abdomen. No large collection of free air is seen. There are degenerative changes in the lumbar spine. Cholecystectomy clips are noted. IMPRESSION: 1. Distended loops of large and small bowel, may represent ileus. Dictated by: Dictated on workstation # [id number]
--- NOTE | 2020-02-14 14:56 | NUR ---
Shu from [facility] here to talk with patient about possible shelter placement.
[2020-02-14] MEDS ORDERED: diphenhydrAMINE 25 MG TAB (BENADRYL) PO ONE (15:45)
--- OUTSIDE RECORDS SUMMARY | 2020-02-14 15:57 | XMS REPORT | Continuity of Care Document ---
Author Organization Unknown Address Unknown Phone Unavailable Allergies Active Description Code Type Severity Reaction Onset Reported/Identified Relationship to Patient Clinical Status Yes adhesive tape [id number] Sascha hammonds Allergy Unknown N/A 01/16/2020 Medications [...] 10/29/2019 EDUARDO FISHER MD Ot I70.261 ATHSCL [place] ARTERIES OF EXTREMITIES W 10/29/2019 EDUARDO FISHER MD, Ot I89 .0 LYMPHEDEMA, NOT ELSEWHERE CLASSIFIED 10/29/2019 EDUARDO FISHER MD, Ot 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 ULCER OF RIGHT CALF 11/03/2019 EDUARDO FISHER MD, Ot E11.622 TYPE 2 DIABETES MELLITUS WITH OTHER SKIN 11/03/2019 EDUARDO FISHER MD, Ot E66.01 MORBID (SEVERE) OBESITY DUE TO EXCESS CA 11/03/2019 EDUARDO FISHER MD, Ot 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 [place]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 11/03/2019 [...] 11/26/2019 EDUARDO FISHER MD, Ot I70.261 ATHSCL [place] ARTERIES OF EXTREMITIES W 11/26/2019 EDUARDO FISHER MD, Ot I89 .0 LYMPHEDEMA, NOT ELSEWHERE CLASSIFIED 11/26/2019 EDUARDO FISHER MD, Ot 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 ULCER OF RIGHT CALF 11/26/2019 EDUARDO FISHER MD, Ot E11.622 TYPE 2 DIABETES MELLITUS WITH OTHER SKIN 11/26/2019 EDUARDO FISHER MD, Ot E66.01 MORBID (SEVERE) OBESITY DUE TO EXCESS CA 11/26/2019 EDUARDO FISHER MD, Ot 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 [place]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 11/26/2019 [...] 11/29/2019 EDUARDO FISHER MD, Ot 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 [place]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 11/29/2019 [...] DIABETES W DIABETIC PERIPHERAL AN 12/07/2019 EDUARDO FISHRE MD Ot E11.622 TYPE 2 DIABETES MELLITUS [...] 01/16/2020 EDUARDO FISHER MD Ot I70.261 ATHSCL [place] ARTERIES OF EXTREMITIES W 01/16/2020 EDUARDO FISHER MD, Ot I89 .0 LYMPHEDEMA, NOT ELSEWHERE CLASSIFIED 01/16/2020 EDUARDO FISHER MD, Ot 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 ULCER OF RIGHT CALF 01/16/2020 EDUARDO FISHER MD, Ot E11.622 TYPE 2 DIABETES MELLITUS WITH OTHER SKIN 01/16/2020 EDUARDO FISHER MD Ot E66.01 MORBID (SEVERE) OBESITY DUE TO EXCESS CA 01/16/2020 EDUARDO FISHER MD Ot 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 [place]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 01/16/2020 [...] 01/16/2020 EDUARDO FISHER MD Ot 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 [place]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 01/16/2020 [...] Status Pt. Type Provider Facility Loc./Unit Complaint [id number] 12/14/2019 14:11:00 15:05:00 DIS Outpatient KEYSHA KINGSLEY MD [facility] REHAB R LEG LYMPHEDEMA [id number] 01/16/2020 16:31:00 20:37:00 DIS Emergency NEW DOMADELINE L [facility] ER FS SOA, HIGH BP, LOW O2 [id number] 11/11/2019 11:51:00 14:00:00 DIS Outpatient EDUARDO FISHER MD [facility] REHAB R LEG LYMPHEDEMA [id number] 11/30/2019 13:07:00 23:59:59 CLS Outpatient EDUARDO FISHER MD [facility] WOUNDCARE [id number] 11/16/2019 13:29:00 23:59:59 CLS Outpatient EDUARDO FISHER MD [facility] WOUNDCARE [id number] 11/09/2019 13:32:00 23:59:59 CLS Outpatient EDUARDO FISHER MD [facility] WOUNDCARE [id number] 11/02/2019 13:44:00 23:59:59 CLS Outpatient EDUARDO FISHER MD [facility] WOUNDCARE [id number] 10/26/2019 16:15:00 23:59:59 CLS Outpatient EDUARDO FISHER MD [facility] LAB NON PRESSURE CHRONIC IL CER OF R CALF [id number] 10/26/2019 14:29:00 23:59:59 CLS Outpatient EDUARDO FISHER MD [facility] WOUNDCARE [id number] 02/12/2020 10:23:00 Document Registration
[2020-02-14] MEDS ORDERED: ROPI1TAB PO (15:58)
[2020-02-14] MEDS ORDERED: OMEP20CA18 PO (15:58)
[2020-02-14] MEDS ORDERED: GABA-488 PO (15:58)
[2020-02-14] MEDS ORDERED: METF-397 PO (15:58)
[2020-02-14] MEDS ORDERED: METO-333 PO (15:58)
[2020-02-14] MEDS ORDERED: ZONI100C29 PO (15:58)
[2020-02-14] MEDS ORDERED: VNL75T PO (15:58)
[2020-02-14] MEDS ORDERED: ERGO50006 PO (15:58)
[2020-02-14] MEDS ORDERED: ATOR40TA70 PO (15:58)
[2020-02-14] MEDS ORDERED: ARIP5TAB57 PO (15:58)
[2020-02-14] MEDS ORDERED: ALPR0.254 PO (15:58)
--- NOTE | 2020-02-14 16:24 | NUR ---
faxed updated med list and orders to [facility] at this time.
[2020-02-14 17:12] VITALS: BP 120/60
== END 2020-02-14 17:11 | disposition home or self-care (01) ==
LOC: EDUNIT# 13:04 → ER FS 13:13
DX: K59.00 Constipation, unspecified (principal); E66.01 Morbid (severe) obesity due to excess calories; G89.29 Other chronic pain; M54.16 Radiculopathy, lumbar region; F32.9 Major depressive disorder, single episode, unspecified; F41.9 Anxiety disorder, unspecified; Z88.8 Allergy status to other drugs, medicaments and biological substances
CPT/HCPCS: 74019

== ENCOUNTER 2020-02-17 19:01 | Inpatient (IN) | payer MEDICARE ==
[~2020-02-17] VITALS: Ht 170.1 cm; Wt 163.3 kg
[~2020-02-17 19:01] MED LIST changes: +ALPR0.254 PO; +ARIP5TAB57 PO; +ATOR40TA70 PO; +ERGO50006 PO; +GABA-488 PO; +METF-397 PO; +METO-333 PO; +OMEP20CA18 PO; +ROPI1TAB PO; +VNL75T PO; +ZONI100C29 PO
--- NOTE | 2020-02-17 19:17 | ED Respiratory ---
General Chief Complaint: Respiratory Problems Stated Complaint: SOA Source: patient, EMS Exam Limitations: no limitations History of Present Illness Date Seen by Provider: Feb 17, 2020 Time Seen by Provider: 07:10 Initial Comments Patient presents via EMS with complaint of shortness of air for the past 1-2 days. [facility] as she's had significant physical decline no longer walking and unable to care for herself. Does complain of some chest tightness. States she can't move either of her legs, but can move both arms without any limitation. Denies loss of bowel or bladder control. Does have chronic low back pain. Recently seen in this ER for fecal impaction. Allergies and Home Medications Allergies Coded Allergies: adhesive tape (Unverified Allergy, Unknown, 01/16/20) Home Medications Alprazolam 0.25 Mg Tablet, 0.25 MG PO Q8H PRN for ANXIETY, (Reported) CAN TAKE 1 TAB EVERY 8 HOURS DURING THE DAY- IF THE PT HAS NOT HAD MORE THEN 2 DOSES DURING THE DAY THEN PT CAN HAVE 2 TABS AT BEDTIME. MAY NOT EXCEED 4 TABS PER 24 HOURS Alprazolam 0.25 Mg Tablet, 0.5 MG PO HS PRN for ANXIETY, (Reported) CAN TAKE 1 TAB EVERY 8 HOURS DURING THE DAY- IF THE PT HAS NOT HAD MORE THEN 2 DOSES DURING THE DAY THEN PT CAN HAVE 2 TABS AT BEDTIME. MAY NOT EXCEED 4 TABS PER 24 HOURS Aripiprazole 5 Mg Tablet, 5 MG PO DAILY, (Reported) Atorvastatin Calcium 40 Mg Tablet, 40 MG PO DAILY, (Reported) Calcium Carbonate/Vitamin D3 1 Each Tablet, 1 EACH PO DAILY, (Reported) Celecoxib 400 Mg Capsule, 400 MG PO DAILY, (Reported) Cholecalciferol (Vitamin D3) 50 Mcg Capsule, 50 MCG PO DAILY, (Reported) Cyclobenzaprine HCl 10 Mg Tablet, 10 MG PO Q8H PRN for PAIN, (Reported) Docusate Sodium 100 Mg Capsule, 100 MG PO BID, (Reported) Ergocalciferol (Vitamin D2) 1,250 Mcg Capsule, 1,250 MCG PO SUE HORN, (Reported) Gabapentin 300 Mg Capsule, 300 MG PO TID, (Reported) Hydrochlorothiazide 12.5 Mg Tablet, 12.5 MG PO DAILY, (Reported) Ibuprofen 600 Mg Tablet, 600 MG PO TID, (Reported) Metformin HCl 500 Mg Tablet, 250 MG PO DAILY, (Reported) TAKES OF A 500MG TAB DAILY Metoprolol Tartrate 25 Mg Tablet, 25 MG PO BID, (Reported) HOLD FOR SBP OF 110 OR BELOW, PULSE OF 60 OR BELOW Multivitamin 1 Each Tablet, 1 EACH PO DAILY, (Reported) Omeprazole 20 Mg Capsule.dr, 20 MG PO BID, (Reported) Polyethylene Glycol 3350 17 Gm Powd.pack, 17 GM PO DAILY, (Reported) Potassium Chloride 20 Meq Tablet.er, 20 MEQ PO DAILY, (Reported) Ropinirole HCl 1 Mg Tablet, 1 MG PO HS, (Reported) Thiamine HCl 250 Mg Tablet, 250 MG PO DAILY, (Reported) Topiramate 25 Mg Tablet, 25 MG PO DAILY, (Reported) Torsemide 100 Mg Tablet, 50 MG PO BID, (Reported) TAKES TAB OF 100MG TO EQUAL 50MG TWICE DAILY Venlafaxine HCl 75 Mg Tab, 75 MG PO QID, (Reported) Zonisamide 100 Mg Capsule, 200 MG PO BID, (Reported) TAKES 2 (100MG) CAPS TO EQUAL 200MG TWICE DAILY Patient Home Medication List Home Medication List Reviewed: Yes Review of Systems Review of Systems Constitutional: see HPI; No fever; malaise, weakness EENTM: no symptoms reported Respiratory: see HPI; No hemoptysis; short of breath, wheezing Cardiovascular: No chest pain; edema (chronic); No palpitations, No syncope Gastrointestinal: No abdominal pain, No loss of appetite, No vomiting Musculoskeletal: back pain; No muscle pain, No muscle cramps Skin: No change in color, No rash Psychiatric/Neurological: Numbness (b/l LE's), Pre-Existing Deficit (Lower extremity weakness) Past Cxsejbg-Cfersc-Nhdjab Hx Past Med/Social Hx: Reviewed Nursing Past Med/Soc Hx Patient Social History 2nd Hand Smoke Exposure: No Recent Hopitalizations: No Seasonal Allergies Seasonal Allergies: No Past Medical History Surgeries: Yes (Gastric bypass) Gallbladder Respiratory: No Cardiac: Yes Chronic Edema/Swelling, High Cholesterol, Hypertension Neurological: No Genitourinary: No Gastrointestinal: Yes Gastroesophageal Reflux Musculoskeletal: No (Restless leg syndrome) Endocrine: Yes Diabetes, Non-Insulin dep HEENT: No Cancer: No Psychosocial: Yes Anxiety, Depression Integumentary: No Blood Disorders: No Physical Exam Capillary Refill : Less Than 3 Seconds Height: '" Weight: lbs. oz. kg; 52.00 BMI Method: General Appearance: no apparent distress, obese (severely) Neck: non-tender, supple Respiratory: no respiratory distress, no accessory muscle use, wheezing (end expiratory) Cardiovascular: regular rate, rhythm, no murmur Gastrointestinal: non tender, soft Extremities: other (diffuse LE edema, unable to move either leg or foot. ) Neurologic/Psychiatric: balance truer II-XII nml as tested, alert, normal mood/affect, oriented x 3, abnormal gait (can't walk), motor weakness (b/l LE's), sensory deficit (b/l LE's (numbness)) Skin: normal color, warm/dry Progress/Results/Core Measures Suspected Sepsis SIRS Temperature: Pulse: 84 Respiratory Rate: Blood Pressure 146 /98 Mean: 114 Results/Orders Lab Results Laboratory Tests Test 02/17/20 19:15 02/17/20 21:20 Range/Units White Blood Count 15.2 H 4.3-11.0 10^3/uL Red Blood Count 3.77 L 4.35-5.85 10^6/uL Hemoglobin 11.4 L 11.5-16.0 G/DL Hematocrit 36 35-52 % Mean Corpuscular Volume 96 80-99 FL Mean Corpuscular Hemoglobin 30 25-34 PG Mean Corpuscular Hemoglobin Concent 32 32-36 G/DL Red Cell Distribution Width 15.0 H 10.0-14.5 % Platelet Count 308 130-400 10^3/uL Mean Platelet Volume 10.1 7.4-10.4 FL Neutrophils (%) (Auto) 83 H 42-75 % Lymphocytes (%) (Auto) 8 L 12-44 % Monocytes (%) (Auto) 7 0-12 % Eosinophils (%) (Auto) 1 0-10 % Basophils (%) (Auto) 0 0-10 % Neutrophils # (Auto) 12.5 H 1.8-7.8 X 10^3 Lymphocytes # (Auto) 1.2 1.0-4.0 X 10^3 Monocytes # (Auto) 1.1 H 0.0-1.0 X 10^3 Eosinophils # (Auto) 0.2 0.0-0.3 10^3/uL Basophils # (Auto) 0.0 0.0-0.1 10^3/uL Neutrophils % (Manual) 87 % Lymphocytes % (Manual) 7 % Monocytes % (Manual) 2 % Eosinophils % (Manual) 2 % Basophils % (Manual) 0 % Band Neutrophils 2 % D-Dimer 6.06 H 0.00-0.49 UG/ML Sodium Level 141 135-145 MMOL/L Potassium Level 4.4 3.6-5.0 MMOL/L Chloride Level 97 L 98-107 MMOL/L Carbon Dioxide Level 29 21-32 MMOL/L Anion Gap 15 H 5-14 MMOL/L Blood Urea Nitrogen 44 H 7-18 MG/DL Creatinine 1.24 0.60-1.30 MG/DL Estimat Glomerular Filtration Rate 45 BUN/Creatinine Ratio 35 Glucose Level 162 H 70-105 MG/DL Calcium Level 9.0 8.5-10.1 MG/DL Corrected Calcium 10.2 H 8.5-10.1 MG/DL Total Bilirubin 0.6 0.1-1.0 MG/DL Aspartate Amino Transf (AST/SGOT) 125 H 5-34 U/L Alanine Aminotransferase (ALT/SGPT) 105 H 0-55 U/L Alkaline Phosphatase 327 H 40-136 U/L Troponin I < 0.30 <0.30 NG/ML Pro-B-Type Natriuretic Peptide 229.5 H <75.0 PG/ML Total Protein 8.3 H 6.4-8.2 GM/DL Albumin 2.5 L 3.2-4.5 GM/DL Group A Streptococcus Screen NEGATIVE NEGATIVE Micro Results Microbiology 02/17/20 Throat Culture - Final, Complete Staphylococcus aureus 02/17/20 Influenza Types A,B Antigen (JOSH) - Final, Complete My Orders Orders - NUPUR SARMIENTO DO Ed Iv/Invasive Line Start (02/17/20 19:09) Cbc With Automated Diff (02/17/20 19:09) Comprehensive Metabolic Panel (02/17/20 19:09) Fibrin Degradation Products (02/17/20 19:09) Influenza A And B Antigens (02/17/20 19:09) Probnp Fs (02/17/20 19:09) Troponin I Fs (02/17/20 19:09) Chest 1 View Ap/Pa Only (02/17/20 19:09) Manual Differential (02/17/20 19:15) Ns Iv 500 Ml (Sodium Chloride 0.9%) (02/17/20 20:15) Albuterol/Ipra Inhalation Soln (Duoneb I (02/17/20 20:15) Svn Small Volume Nebulizer (02/17/20 20:10) Methylprednisolone Sod Succ (Solu-Medrol (02/17/20 21:15) Rapid Strep A Screen (02/17/20 21:12) Levofloxacin 750 Mg/150 Ml Iv (Levaquin (02/17/20 21:45) Medications Given in ED Vital Signs/I&O Capillary Refill : Less Than 3 Seconds Progress Note : Time: 21:00 Progress Note Further history given when patient's daughter arrived. Patient was just started on oxygen yesterday as her sats were dropping into the 80s percent, she is not normally on oxygen at home. Daughter states she has had a rather rapid decline in physical condition over the past week. Just now having difficulty breathing. Diagnostic Imaging Diagonstic Imaging: Xray Plain Films/CT/US/NM/MRI: chest Comments IMPRESSION: Expiratory type chest with bilateral perihilar and basilar discoid atelectasis. This is a change from the 01/16/2020 study. Dictated on workstation # [id number] Dict: 02/17/201931 Trans: 02/17/20 194 SHELBY [id number] Interpreted by: PRAFUL FELDMAN MD Electronically signed by: Departure Communication (Admissions) Discussed HPI, dyspnea and hypoxic w wheezing....labs and CXR w Dr Freeman @ 1796. No known exposure to COVID-19 and no known cases in the area to date. Respiratory precautions initiated. Accepts for admission to [facility] Impression Primary Impression: Dehydration Additional Impressions: Shortness of breath Obesity Qualified Codes: E66.01 - Morbid (severe) obesity due to excess calories; Z68.43 - Body mass index (BMI) 50.0-59.9, adult Weakness of both lower extremities Hypoxia Pneumonia Qualified Codes: J18.1 - Lobar pneumonia, unspecified organism Disposition: ADMITTED INPATIENT Condition: Stable Admissions Decision to Admit Reason: Admit from ER (General) Time/Decision to Admit Time: 21:19 Departure-Patient Inst. Referrals: SELF,KEYSHA NGUYỄN (PCP/Family) Primary Care Physician NUPUR SARMIENTO DO Feb 17, 2020 19:17
[2020-02-17 19:26] LABS: HEMATOCRIT 36 % (35-52); HEMOGLOBIN 11.4 G/DL (11.5-16.0); MEAN CORPUSCULAR HEMOGLOBIN 30 PG (25-34); WHITE BLOOD COUNT 15.2 10^3/uL (4.3-11.0)
[2020-02-17 19:27] LABS: BASOPHILS % (AUTO) 0 % (0-10); EOSINOPHILS % (AUTO) 1 % (0-10); LYMPHOCYTES # (AUTO) 1.2 X 10^3 (1.0-4.0); LYMPHOCYTES % (AUTO) 8 % (12-44); MEAN CORPUSCULAR HGB CONC 32 G/DL (32-36); MEAN CORPUSCULAR VOLUME 96 FL (80-99); MEAN PLATELET VOLUME 10.1 FL (7.4-10.4); MONOCYTES # (AUTO) 1.1 X 10^3 (0.0-1.0); MONOCYTES % (AUTO) 7 % (0-12); NEUTROPHILS # (AUTO) 12.5 X 10^3 (1.8-7.8); NEUTROPHILS % (AUTO) 83 % (42-75); PLATELET COUNT 308 10^3/uL (130-400)
[2020-02-17 19:28] LABS: EOSINOPHILS # (AUTO) 0.2 10^3/uL (0.0-0.3)
[2020-02-17 19:42] LABS: BAND NEUTROPHILS 2 %; BASOPHILS % (MANUAL) 0 %; EOSINOPHILS % (MANUAL) 2 %; LYMPHOCYTES % (MANUAL) 7 %; MONOCYTES % (MANUAL) 2 %; NEUTROPHILS % (MANUAL) 87 %
--- NOTE | 2020-02-17 19:42 | Diagnostic Imaging Report ---
INDICATION: Short of breath for 4 days. Nonfebrile. Portable chest has appearance of an expiratory chest. There is cardiomegaly with no failure. There is bilateral perihilar and basilar discoid atelectasis. An infiltrate at the left lung base cannot totally be excluded. No significant effusions are evident. No pneumothorax is seen. IMPRESSION: Expiratory type chest with bilateral perihilar and basilar discoid atelectasis. This is a change from the 01/16/2020 study. Dictated by: Dictated on workstation # [id number]
[2020-02-17 19:59] LABS: ALANINE AMINOTRANSFERASE 105 U/L (0-55); ALKALINE PHOSPHATASE 327 U/L (40-136); BILIRUBIN,TOTAL 0.6 MG/DL (0.1-1.0); BUN/CREATININE RATIO 35; CARBON DIOXIDE 29 MMOL/L (21-32); CHLORIDE 97 MMOL/L (98-107); CREATININE SERUM 1.24 MG/DL (0.60-1.30); GFR ESTIMATED 45; GLUCOSE 162 MG/DL (70-105); POTASSIUM 4.4 MMOL/L (3.6-5.0); SODIUM 141 MMOL/L (135-145)
[2020-02-17 20:00] LABS: ALBUMIN 2.5 GM/DL (3.2-4.5); TOTAL PROTEIN 8.3 GM/DL (6.4-8.2)
[2020-02-17] MEDS ORDERED: RT-ALBUTEROL/IPRATROPIUM 3 ML (DUONEB) VIAL INH ONE (20:15)
[2020-02-17] MEDS ORDERED: NS IV 500 ML 500 ML IV SCH (20:15)
[2020-02-17] MEDS ORDERED: PRD20T PO (20:41)
[2020-02-17] MEDS ORDERED: RT-ALBUINH IH (20:41)
--- OUTSIDE RECORDS SUMMARY | 2020-02-17 20:42 | XMS REPORT | Continuity of Care Document ---
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 10/29/2019 EDUARDO FISHER MD, Ot I89 .0 LYMPHEDEMA, NOT ELSEWHERE CLASSIFIED 10/29/2019 EDUARDO FISHER MD, Ot 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 ULCER OF RIGHT CALF 11/03/2019 EDUARDO FISHER MD, Ot E11.622 TYPE 2 DIABETES MELLITUS WITH OTHER SKIN 11/03/2019 EDUARDO FISHER MD, Ot E66.01 MORBID (SEVERE) OBESITY DUE TO EXCESS CA 11/03/2019 EDUARDO FISHER MD, Ot 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 11/03/2019 [...] 11/26/2019 EDUARDO FISHER MD, Ot 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 11/26/2019 EDUARDO FISHER MD, Ot I89 .0 LYMPHEDEMA, NOT ELSEWHERE CLASSIFIED 11/26/2019 EDUARDO FISHER MD, Ot 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 ULCER OF RIGHT CALF 11/26/2019 EDUARDO FISHER MD, Ot E11.622 TYPE 2 DIABETES MELLITUS WITH OTHER SKIN 11/26/2019 EDUARDO FISHER MD, Ot E66.01 MORBID (SEVERE) OBESITY DUE TO EXCESS CA 11/26/2019 EDUARDO FISHER MD, Ot 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 11/26/2019 [...] 11/29/2019 EDUARDO FISHER MD, Ot 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 11/29/2019 [...] 01/16/2020 EDUARDO FISHER MD Ot 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 01/16/2020 EDUARDO FISHER MD, Ot I89 .0 LYMPHEDEMA, NOT ELSEWHERE CLASSIFIED 01/16/2020 EDUARDO FISHER MD, Ot 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 ULCER OF RIGHT CALF 01/16/2020 EDUARDO FISHER MD, Ot E11.622 TYPE 2 DIABETES MELLITUS WITH OTHER SKIN 01/16/2020 EDUARDO FISHER MD Ot E66.01 MORBID (SEVERE) OBESITY DUE TO EXCESS CA 01/16/2020 EDUARDO FISHER MD Ot 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 01/16/2020 [...] 01/16/2020 EDUARDO FISHER MD Ot 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 01/16/2020 [...] 2 NON-PRESSURE CHRONIC ULCER OF RIGHT CALF 02/15/2020 Ot E11.9 TYPE 2 DIABETES MELLITUS WITHOUT COMPLIC 02/15/2020 Ot K59.00 CON STIPATION, UNSPECIFIED 02/15/2020 Ot M54.16 RAD ICULOPATHY, LUMBAR REGION 02/15/2020 Ot M54.42 LUM BAGO WITH SCIATICA, LEFT SIDE 02/15/2020 Ot M54.5 LOW BACK PAIN 02/15/2020 Ot Z88.8 SERGEI RGY STATUS TO OT DRUG/MEDS/BIOL SUB 02/15/2020 Ot E11.9 TYPE 2 DIABETES MELLITUS WITHOUT COMPLIC 02/15/2020 Ot K59.00 CON STIPATION, UNSPECIFIED 02/15/2020 Ot M54.16 RAD ICULOPATHY, LUMBAR REGION 02/15/2020 Ot M54.42 LUM BAGO WITH SCIATICA, LEFT SIDE 02/15/2020 Ot M54.5 LOW BACK PAIN 02/15/2020 Ot Z88.8 SERGEI RGY STATUS TO OT DRUG/MEDS/BIOL SUB Procedures There is no data. Results Test [...] INFLUENZA A AND B ANTIGENS BY IA [facility] Comprehensive metabolic panel - 02/12/20 10:12 Serum [...] calculation of estimated glomerular filtration rate > [facility] Serum or plasma glucose measurement (mass/volume) 166 [...] g/dL 3.2-4.5 CALCIUM CORRECTED 9.9 mg/dL 8.5-10.1 Bacterial urine culture - 02/13/20 19:29 Bacterial urine culture [facility] Complete blood count (CBC) with automate d white blood cell (WBC) differential - 02/17/20 19:15 Blood leukocytes automated count (number/volume) 15.2 10*3/uL 4.3-11.0 Blood erythrocytes automated count (number/volume) 3.77 10*6/uL 4.35-5.85 Venous blood hemoglobin measurement (mass/volume) 11.4 g/dL 11.5-16.0 Blood hematocrit (volume fraction) 36 % 35-52 Automated erythrocyte mean corpuscular volume 96 [ foz_us] 80-99 Automated erythrocyte mean corpuscular h emoglobin (mass per erythrocyte) 30 pg 25-34 Automated erythrocyte mean corpuscular h emoglobin concentration measurement (mass/volume) 32 g/dL 32-36 Automated erythrocyte distribution width ratio 15. 0 % 10.0- 14.5 Automated blood platelet count (count/volume) 308 10*3/uL 130-400 Automated blood platelet mean volume measurement 10.1 [foz_us] 7.4-10.4 Automated blood neutrophils/100 leukocytes 83 % 42-75 Automated blood lymphocytes/100 leukocytes 8 % 12-44 Blood monocytes/100 leukocytes 7 % 0-12 Automated blood eosinophils/100 leukocytes 1 % 0-10 Automated blood basophils/100 leukocytes 0 % 0-10 Blood neutrophils automated count (number/volume) 12.5 10*3 1.8-7.8 Blood lymphocytes automated count (number/volume) 1.2 10*3 1.0-4.0 Blood monocytes automated count (number/volume) 1. 1 10*3 0.0-1.0 Automated eosinophil count 0.2 10*3/uL 0 .0-0.3 Automated blood basophil count (count/volume) 0.0 10*3/uL 0.0-0.1 Influenza virus A and B antigen detectio n - 02/17/20 19:15 FLU RESULT NEGATIVE FOR INFLUENZA A AND B ANTIGENS BY IA NR Manual absolute plasma cell count - 01/29 08/20 19:15 Blood monocytes/100 leukocytes 2 % NRG Manual blood segmented neutrophils/100 leukocytes 87 % NRG Blood band neutrophils/100 leukocytes 2 % NRG Manual blood lymphocytes/100 leukocytes 7 % NRG Manual eosinophils/100 leukocytes in nose 2 % NRG Manual blood basophils/100 leukocytes 0 % NR Comprehensive metabolic panel - 02/17/20 19:15 Serum or plasma sodium measurement (moles/volume) 141 mmol/L 135-145 Serum or plasma potassium measurement (moles/volume) 4.4 mmol/L 3.6-5.0 Serum or plasma chloride measurement (moles/volume) 97 mmol/L 98-107 Carbon dioxide 29 mmol/L 21-32 Serum or plasma anion gap determination (moles/volume) 15 mmol/L 5-14 Serum or plasma urea nitrogen measurement (mass/volume ) 44 mg/dL 7-18 Serum or plasma creatinine measurement (mass/volume) 1.24 mg/dL 0.60-1.30 Serum or plasma urea nitrogen/creatinine mass ratio 35 NRG Serum or plasma creatinine measurement w ith calculation of estimated glomerular filtration rate 45 NRG Serum or plasma glucose measurement (mass/volume) 162 mg/dL 70-105 Serum or plasma calcium measurement (mass/volume) 9.0 mg/dL 8.5-10.1 Serum or plasma total bilirubin measurement (mass/volu me) 0.6 mg/dL 0.1-1.0 Serum or plasma alkaline phosphatase wesley surement (enzymatic activity/volume) 327 U/L 40-136 Serum or plasma aspartate aminotransfera se measurement (enzymatic activity/volume) 125 U/L 5-34 Serum or plasma alanine aminotransferase measurement (enzymatic activity/volume) 105 U/L 0-55 Serum or plasma protein measurement (mass/volume) 8.3 g/dL 6.4-8.2 Serum or plasma albumin measurement (mass/volume) 2.5 g/dL 3.2-4.5 CALCIUM CORRECTED 10.2 mg/dL 8.5-10.1 TROPONIN I FS - 02/17/20 19:15 TROPONIN I FS < 0.30 <0.30 PROBNP FS - 02/17/20 19:15 PROBNP FS 229.5 pg/mL <75.0 Fibrin D-dimer FEU measurement in platel et poor plasma (mass/volume) - 02/17/20 19:15 Fibrin D-dimer FEU measurement in platelet poor plasma (mass/volume) 6.06 ug/mL 0.00-0.49 Encounters ACCT No. Visit Date/Time Discharge Status Pt. Type Provider Facility Loc./Unit Complaint [id number] 02/14/2020 13:13:00 17:11:00 DIS Emergency MADELINE BENÍTEZ MD [facility] ER FS CONSTIPATION [id number] 12/14/2019 14:11:00 15:05:00 DIS Outpatient KEYSHA KINGSLEY MD [facility] REHAB R LEG LYMPHEDEMA [id number] 01/16/2020 16:31:00 20:37:00 DIS Emergency MADELINE WOLFF DO [facility] ER FS SOA, HIGH BP, LOW O2 [id number] 11/11/2019 11:51:00 14:00:00 DIS Outpatient EDUARDO FISHER MD [facility] REHAB R LEG LYMPHEDEMA [id number] 11/30/2019 13:07:00 23:59:59 CLS Outpatient EDUARDO FISHER MD [facility] WOUNDCARE [id number] 11/16/2019 13:29:00 23:59:59 CLS Outpatient EDUARDO FISHER MD [facility] WOUNDCARE [id number] 11/09/2019 13:32:00 23:59:59 CLS Outpatient EDUARDO FISHER MD [facility] WOUNDCARE [id number] 11/02/2019 13:44:00 23:59:59 CLS Outpatient EDUARDO FISHER MD [facility] WOUNDCARE [id number] 10/26/2019 16:15:00 23:59:59 CLS Outpatient EDUARDO FISHER MD [facility] LAB NON PRESSURE CHRONIC IL CER OF R CALF [id number] 10/26/2019 14:29:00 23:59:59 CLS Outpatient EDUARDO FISHER MD [facility] WOUNDCARE [id number] 02/17/2020 19:28:00 Document Registration [id number] 02/15/2020 08:21:00 Document Registration [id number] 02/12/2020 10:23:00 Document Registration
[2020-02-17] MEDS ORDERED: methylPREDNISolone 125 MG (Solu-MEDROL) VIAL IVP ONE (21:15)
[2020-02-17] MEDS ORDERED: LEVOFLOXACIN 750 MG/150 ML IV 150 ML IV ONE (21:45)
--- OUTSIDE RECORDS SUMMARY | 2020-02-17 22:29 | XMS REPORT | Continuity of Care Document ---
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 10/29/2019 EDUARDO FISHER MD, Ot I89 .0 LYMPHEDEMA, NOT ELSEWHERE CLASSIFIED 10/29/2019 EDUARDO FISHER MD, Ot 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 ULCER OF RIGHT CALF 11/03/2019 EDUARDO FISHER MD, Ot E11.622 TYPE 2 DIABETES MELLITUS WITH OTHER SKIN 11/03/2019 EDUARDO FISHER MD, Ot E66.01 MORBID (SEVERE) OBESITY DUE TO EXCESS CA 11/03/2019 EDUARDO FISHER MD, Ot 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 [place]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 11/03/2019 [...] 11/26/2019 EDUARDO FISHER MD, Ot 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 11/26/2019 EDUARDO FISHER MD, Ot I89 .0 LYMPHEDEMA, NOT ELSEWHERE CLASSIFIED 11/26/2019 EDUARDO FISHER MD, Ot 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 ULCER OF RIGHT CALF 11/26/2019 EDUARDO FISHER MD, Ot E11.622 TYPE 2 DIABETES MELLITUS WITH OTHER SKIN 11/26/2019 EDUARDO FISHER MD, Ot E66.01 MORBID (SEVERE) OBESITY DUE TO EXCESS CA 11/26/2019 EDUARDO FISHER MD, Ot 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 [place]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 11/26/2019 EDUARDO FISHER MD, Ot I89 .0 LYMPHEDEMA, NOT ELSEWHERE CLASSIFIED 11/26/2019 EDUARDO FISHER MD, Ot 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 ULCER OF RIGHT CALF 11/29/2019 EDUARDO FISHRE MD, Ot E11.52 TYPE 2 DIABETES W DIABETIC PERIPHERAL AN 11/29/2019 EDUARDO FISHER MD, Ot E11.622 TYPE 2 DIABETES MELLITUS WITH OTHER SKIN 11/29/2019 EDUARDO FISHER MD, Ot E66.01 MORBID (SEVERE) OBESITY DUE TO EXCESS CA 11/29/2019 EDUARDO FISHER MD, Ot 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 [place]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 11/29/2019 [...] 01/16/2020 EDUARDO FISHER MD Ot 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 01/16/2020 EDUARDO FISHER MD, Ot I89 .0 LYMPHEDEMA, NOT ELSEWHERE CLASSIFIED 01/16/2020 EDUARDO FISHER MD, Ot 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 ULCER OF RIGHT CALF 01/16/2020 EDUARDO FISHER MD, Ot E11.622 TYPE 2 DIABETES MELLITUS WITH OTHER SKIN 01/16/2020 EDUARDO FISHER MD Ot E66.01 MORBID (SEVERE) OBESITY DUE TO EXCESS CA 01/16/2020 EDUARDO FISHER MD Ot 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 [place]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 Complete blood count (CBC) with automate d [...] platelet poor plasma (mass/volume) 6.06 ug/mL 0.00-0.49 Streptococcus pyogenes antigen detection - 02/17/20 21:20 Streptococcus pyogenes antigen detection NEGATIVE NEGATIVE Encounters ACCT No. Visit Date/Time Discharge Status Pt. Type Provider Facility Loc./Unit Complaint [id number] 02/14/2020 13:13:00 17:11:00 DIS Emergency JEYSON NGUYỄN, MADELINE W [facility] ER FS CONSTIPATION [id number] 12/14/2019 14:11:00 15:05:00 DIS Outpatient KEYSHA KINGSLEY MD [facility] REHAB R LEG LYMPHEDEMA [id number] 01/16/2020 16:31:00 20:37:00 DIS Emergency MADELINE WOLFF DO [facility] ER FS SOA, HIGH BP, LOW O2 [id number] 11/11/2019 11:51:00 14:00:00 DIS Outpatient EDUARDO FISHER MD [facility] REHAB R LEG LYMPHEDEMA [id number] 11/30/2019 13:07:00 23:59:59 CLS Outpatient EDUARDO FISHER MD [facility] WOUNDCARE [id number] 11/16/2019 13:29:00 23:59:59 CLS Outpatient EDUARDO FISHER MD [facility] WOUNDCARE [id number] 11/09/2019 13:32:00 23:59:59 CLS Outpatient EDUARDO FISHER MD [facility] WOUNDCARE [id number] 11/02/2019 13:44:00 23:59:59 CLS Outpatient EDUARDO FISHER MD [facility] WOUNDCARE [id number] 10/26/2019 16:15:00 23:59:59 CLS Outpatient EDUARDO FISHER MD [facility] LAB NON PRESSURE CHRONIC IL CER OF R CALF [id number] 10/26/2019 14:29:00 23:59:59 CLS Outpatient EDUARDO FISHER MD [facility] WOUNDCARE [id number] 02/17/2020 19:28:00 Document Registration [id number] 02/15/2020 08:21:00 Document Registration [id number] 02/12/2020 10:23:00 Document Registration
--- NOTE | 2020-02-17 23:50 | NUR ---
TRUNG HASSAN Rhoda admitted to room 421-1, with an admitting diagnosis of DYSPNEA, HYPOXIA, AND PNEUMONIA, on 02/17/20 from [facility], accompanied by EMS STAFF.TRUNG HASSAN introduced to surroundings, call light, bed controls, phone, TV, temperature control, lights, meal times, smoking policy, visitor policy, side rail policy, bathrooms and showers. Patient Rights given to patient in the handbook. TRUNG HASSAN verbalizes understanding that [facility] is not responsible for the loss or damage to any personal effects or valuables that are kept in the patients posession during their hospitalization. TRUNG HASSAN verbalizes understanding of Interdisciplinary Patient Education. Patient and/or family were informed about the Rapid Response Team and its purpose.
[2020-02-18] VITALS (7 sets, daily range): BP systolic 133–194; BP diastolic 72–92
[2020-02-18] MEDS ORDERED: methylPREDNISolone 40 MG/ML (Solu-MEDROL) VIAL ONE (00:19)
[2020-02-18] MEDS ORDERED: NS IV 1000 ML 1,000 ML ONE (00:20)
[2020-02-18] MEDS: NS IV 1000 ML 1,000 ML IV SCH ×2 (00:49→12:00)
[2020-02-18] MEDS ORDERED: RX-ALBUTEROL INHALER (PROAIR) 8.5 GM IH ONE (01:07)
[2020-02-18] MEDS: RT-ALBUTEROL HFA (PROAIR HFA) 8.5 GM IH PRN ×2 (01:41→06:54)
[2020-02-18] MEDS: methylPREDNISolone 40 MG/ML (Solu-MEDROL) VIAL IV SCH ×4 (03:27→20:18)
[2020-02-18 04:37] LABS: BASOPHILS % (AUTO) 0 % (0-10); EOSINOPHILS % (AUTO) 0 % (0-10); HEMATOCRIT 37 % (35-52); HEMOGLOBIN 11.6 G/DL (11.5-16.0); LYMPHOCYTES # (AUTO) 0.5 X 10^3 (1.0-4.0); LYMPHOCYTES % (AUTO) 3 % (12-44); MEAN CORPUSCULAR HEMOGLOBIN 30 PG (25-34); MEAN CORPUSCULAR HGB CONC 32 G/DL (32-36); MEAN CORPUSCULAR VOLUME 95 FL (80-99); MONOCYTES # (AUTO) 0.5 X 10^3 (0.0-1.0); MONOCYTES % (AUTO) 4 % (0-12); NEUTROPHILS # (AUTO) 14.1 X 10^3 (1.8-7.8); NEUTROPHILS % (AUTO) 93 % (42-75); PLATELET COUNT 283 10^3/uL (130-400); RED CELL DISTRIBUTION WIDTH 15.5 % (10.0-14.5); WHITE BLOOD COUNT 15.1 10^3/uL (4.3-11.0)
[2020-02-18 05:01] LABS: ALBUMIN 2.9 GM/DL (3.2-4.5); BILIRUBIN,TOTAL 0.6 MG/DL (0.1-1.0); CALCIUM 8.7 MG/DL (8.5-10.1); CREATININE SERUM 1.09 MG/DL (0.60-1.30); POTASSIUM 4.3 MMOL/L (3.6-5.0); TOTAL PROTEIN 8.3 GM/DL (6.4-8.2)
[2020-02-18] MEDS ORDERED: IBUP-1773 PO (10:20)
[2020-02-18] MEDS ORDERED: THIA250T8 PO (10:20)
[2020-02-18] MEDS ORDERED: HYDR12.56 PO (10:20)
[2020-02-18] MEDS ORDERED: CYCL10TA9 PO (10:20)
[2020-02-18] MEDS ORDERED: TOPI25TA10 PO (10:20)
[2020-02-18] MEDS ORDERED: CALC-6 PO (10:20)
[2020-02-18] MEDS ORDERED: CHOL20002 PO (10:20)
[2020-02-18] MEDS ORDERED: POLY17PO6 PO (10:20)
[2020-02-18] MEDS ORDERED: ALPR0.25 PO (10:20)
[2020-02-18] MEDS ORDERED: TORS100T4 PO (10:20)
[2020-02-18] MEDS ORDERED: CELE400C PO (10:20)
[2020-02-18] MEDS ORDERED: DOCU-143 PO (10:20)
[2020-02-18] MEDS ORDERED: MULT1TAB69 PO (10:20)
[2020-02-18] MEDS ORDERED: POTA-51 PO (10:20)
--- NOTE | 2020-02-18 10:24 | NUR ---
ENTERED THE MED REC USING THE MEDICATION REVIEW REPORT FROM [facility] IN [place]. I SPOKE WITH HER NURSE AT [facility] TO CHECK ON THE CIPRO ON THE REPORT- HER NURSE SAID SHE IS NOT TAKING AND IT HAD BEEN DC'D.
--- NOTE | 2020-02-18 10:28 | NUR ---
CONTINUES TO BE IN ISOLATION, O2 ON PER NC AT 14 LITERS, DENIES PAIN, IV SITE WITHOUT REDNESS OR SWELLING, MARTINI PATENT, CALL LIGHT WITHIN REACH
[2020-02-18] MEDS ORDERED: ONDANSETRON 4 MG (ZOFRAN) ORAL DISSOLVE TAB PO PRN (11:45)
[2020-02-18] MEDS ORDERED: ANTACID SUSP 30 ML UDC (MYLANTA) PO PRN (11:45)
[2020-02-18] MEDS ORDERED: ONDANSETRON 4 MG/2 ML (SDV) Z0FRAN IV PRN (11:45)
[2020-02-18] MEDS ORDERED: ACETAMINOPHEN 325 MG TABLET PO PRN (11:45)
[2020-02-18] MEDS ORDERED: BISACODYL 10 MG SUPP (DULCOLAX) PR PRN (11:45)
[2020-02-18] MEDS ORDERED: polyethylene glycoL POWDER 17 GM (MIRALAX) PACK PO PRN (11:45)
--- NOTE | 2020-02-18 12:49 | NUR ---
Received dietary consult for MST score. Note pt is currently in isolation as PUI. Will monitor PO intake and reassess on 02/20 to determine if pt meets criteria for malnutrition. Miladys Kaufman, MS, RD, LD
--- NOTE | 2020-02-18 13:23 | History & Physical-Hospitalist ---
History of Present Illness HPI/Chief Complaint Karen Ely is a 54-year-old female with past medical history of hypertension, diabetes, restless leg syndrome, hyperlipidemia, morbid obesity, who presented her custodial with shortness of breath. She reports that she has been feeling short of breath for the past couple of days. Prior to that about a week ago she developed paresthesias and weakness of her bilateral lower extremities. She reports that a week ago she is able to walk on her own but now is unable to move her legs. She reports lower back pain with sciatica down her left leg. She denies fevers and chills. She reports a dry cough. She denies any bowel incontinence. She has chronic urinary incontinence which is unchanged. She denies any chest pain. Source: patient Exam Limitations: no limitations Date Seen 02/18/20 Time Seen by a Provider: 10:30 Attending Physician Maria D Freeman MD PCP Self,Thad NGUYỄN Referring Physician Date of Admission Feb 17, 2020 at 21:40 Home Medications & Allergies Home Medications Reviewed patient Home Medication Reconciliation performed by pharmacy medication reconciliations orthotics prosthetics technician and/or nursing. Patients Allergies have been reviewed. Allergies Allergies Coded Allergies adhesive tape (Unverified Allergy, Unknown, 01/16/20) Past Ofluqke-Iycktb-Xqvevc Hx Past Med/Social Hx: Reviewed Nursing Past Med/Soc Hx Patient Social History Alcohol Use: Denies Use Recreational Drug Use: No Smoking Status: Former Smoker 2nd Hand Smoke Exposure: No Recent Foreign Travel: No Contact w/other who traveled: No Recent Hopitalizations: No Recent Infectious Disease Expo: No Immunizations Up To Date Date of Pneumonia Vaccine: Sep 27, 2019 Date of Influenza Vaccine: Sep 27, 2019 Seasonal Allergies Seasonal Allergies: No Past Medical History Surgeries: Gallbladder Cardiac: Chronic Edema/Swelling, High Cholesterol, Hypertension Gastrointestinal: Gastroesophageal Reflux Endocrine: Diabetes, Non-Insulin dep Psychosocial: Anxiety, Depression History of Blood Disorders: No Review of Systems Constitutional: weakness EENTM: no symptoms reported Respiratory: cough, short of breath Cardiovascular: no symptoms reported Gastrointestinal: abdominal pain (Left-sided) Genitourinary: no symptoms reported Musculoskeletal: no symptoms reported Skin: no symptoms reported Psychiatric/Neurological: No Symptoms Reported Physical Exam Physical Exam Vital Signs Vital Signs - First Documented 02/17/20 02/17/20 19:07 23:02 Temp 36.1 Pulse 84 Resp 18 B/P (MAP) 146/98 (114) Pulse Ox 92 O2 Delivery Nasal Cannula O2 Flow Rate 5.00 Capillary Refill : Less Than 3 Seconds Height, Weight, BMI Height: '" Weight: lbs. oz. kg; 56.43 BMI Method: General Appearance: No Apparent Distress, Anxious, Chronically ill, Obese Respiratory: Lungs Clear, No Respiratory Distress, Decreased Breath Sounds, Other (Wearing nasal cannula) Cardiovascular: Regular Rate, Rhythm, No Murmur Gastrointestinal: Normal Bowel Sounds, Soft; No Distended, No Guarding; Tenderness (Left-sided) Extremity: Non Tender, Swelling, Other (Lymphedema) Neurologic/Psychiatric: Alert, Oriented x3, Normal Mood/Affect, Motor Weakness (Bilateral lower extremities) Skin: Normal Color, Warm/Dry Results Results/Procedures Labs Laboratory Tests 02/17/20 19:15 02/18/20 04:20 Patient resulted labs reviewed. Imaging: Reviewed Imaging Report Assessment/Plan Admission Diagnosis Acute respiratory failure with hypoxia Admission Status: Inpatient Order (span 2 midnights) Reason for Inpatient Admission: Respiratory failure requiring further evaluation and treatment Assessment and Plan Acute respiratory failure with hypoxia Possible pneumonia Requiring 15 L nasal cannula Transition to Vapotherm Chest x-ray unremarkable Flu negative Procalcitonin elevated at 0.36 Started on Levaquin, continue Covid testing pending Obtain CT chest/abdomen/pelvis to evaluate for pulmonary embolism Continue Xarelto Paresthesias Paralysis XR lumbar spine 02/11 with chronic T11 compression fracture Obtain CT chest/abdomen/pelvis to further assess lumbar spine Elevated liver function tests CT chest/abdomen/pelvis ordered Hepatitis panel Type II diabetes mellitus Sliding scale insulin Hypertension Restless leg syndrome Hyperlipidemia Continue home meds Morbid obesity Clinically significant, no acute management needs DVT prophylaxis: Already receiving therapeutic anticoagulation Diagnosis/Problems Diagnosis/Problems (1) Acute respiratory failure with hypoxia Status: Acute (2) Elevated liver function tests Status: Acute (3) Morbid obesity Status: Chronic (4) HTN (hypertension) Status: Chronic Qualifiers: Hypertension type: essential hypertension Qualified Codes: I10 - Essential (primary) hypertension (5) T2DM (type 2 diabetes mellitus) Status: Chronic Qualifiers: 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
[2020-02-18] MEDS: ALPRAZolam 0.25 MG (XANAX) TAB PO PRN ×2 (14:08→20:11)
[2020-02-18] MEDS: ENOXAPARIN 60 MG/0.6 ML (LOVENOX) SYR SC SCH ×2 (14:09→20:11)
[2020-02-18] MEDS ORDERED: IOHEXOL 350 MG/ML 100 ML (OMNIPAQUE 350) VIAL IV ONE (14:15)
[2020-02-18] MEDS ORDERED: HOLD METFORMIN - RECEIVED CONTRAST 20 ML VIAL IV SCH (14:15)
[2020-02-18] MEDS ORDERED: CATHETER FLUSH 10 ML SYR IV PRN (14:15)
[2020-02-18] MEDS ORDERED: NS 100 ML (IVPB) BAG IV ONE (14:15)
--- NOTE | 2020-02-18 16:00 | NUR ---
down to ct per bed, isolation precautions followed
--- NOTE | 2020-02-18 16:07 | Diagnostic Imaging Report ---
PROCEDURE: CT chest, abdomen, and pelvis with contrast. TECHNIQUE: Multiple contiguous axial images were obtained through the chest, abdomen, and pelvis after the administration of intravenous contrast. Auto Exposure Controls were utilized during the CT exam to meet ALARA standards for radiation dose reduction. INDICATION: Respiratory failure, lower extremity paresthesias. FINDINGS: Chest: There are destructive bony changes at the T9 and T10 vertebral bodies most notably involving the adjacent articular endplates with some associated destructive changes of adjacent posterior ribs segments. There is some induration and increased density of the paravertebral soft tissues at that level. Findings may reflect aggressive and severe vertebral osteomyelitis and intervertebral discitis or neoplastic process. The process does appear to erode the posterior vertebral cortices inferiorly at T9 and superiorly at T10 with likely extension into the ventral epidural space. Given the provided history, further workup with contrast-assisted thoracic spinal MRI recommended to see if further there is an element of cord compression as well as to exclude the possibility of epidural abscess superimposed. There was no other suspected acute bony abnormality. There are bilateral pleural effusions, moderate in volume and the distribution of the fluid is not entirely dependent and partial loculations left greater than right are suspected. No appreciable pleural thickening or abnormal pleural enhancement. Zones of perihilar and dependent basilar partial atelectasis as well as some mild perihilar airspace opacity suspicious for combination of pneumonia and atelectasis. Abdomen and pelvis: There is no bowel, biliary, or urinary tract obstruction. No abdominal pelvic abscess or other acute fluid collection. Urinary tracts are unremarkable. Gallbladder is surgically absent. No pathological biliary dilatation. Spleen, adrenals, pancreas negative. Aortoiliac and mesenteric vessels patent, nonaneurysmal but calcified and atherosclerotic. There is a fatty umbilical hernia without inflammation. No herniation of viscus. The abdominal pelvic osseous structures reveal some degenerative change but otherwise negative. 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 Further characterization with contrast-assisted thoracic spinal MRI recommended as further evaluation. Sequelae of neoplasm less likely but cannot be absolutely excluded. There are bilateral pleural effusions partially loculated with subjacent atelectasis and perihilar infiltrates suspicious for superimposition of pneumonia. The pulmonary parenchymal and pleural disease is likely secondary to the suspected spinal infection. Abdomen and pelvis: Chronic findings as listed. Pertinent results discussed by phone with the ordering physician. Dictated by: Dictated on workstation # [id number]
--- NOTE | 2020-02-18 16:32 | NUR ---
I requested ok for transfer of patient to another hospital from [facility] Robbiesudha Solano said ok to transfer. Communicate with receiving facility that she is a PUI for COVID-19 and follow up with results when we receive them. Dr Frost notified.
[2020-02-18] MEDS: inSUlin ASPART (NovoLOG) 1 UNIT/0.01 ML (CHARGE PER UNIT) SC SCH ×2 (16:56→20:24)
[2020-02-18] MEDS: VENlafaxine 75 MG (EFFEXOR) TAB PO SCH ×2 (16:58→20:11)
[2020-02-18] MEDS ORDERED: TORSEMIDE 20 MG (DEMADEX) TAB PO SCH (17:00)
--- NOTE | 2020-02-18 17:42 | NUR ---
FAMILY CELESTINA WOODALL NOTIFIED OF POSSIBLE TRANSFER TO PER PATIENTS REQUEST [phone]
[2020-02-18] MEDS: RT-ALBUTEROL HFA (PROAIR HFA) 8.5 GM IH SCH ×2 (19:48→22:32)
[2020-02-18] MEDS: GABAPENTIN 300 MG (NEURONTIN) CAP PO SCH (20:11)
[2020-02-18] MEDS: MELATONIN 3 MG TABLET PO PRN (20:12)
[2020-02-18] MEDS: diphenhydrAMINE 25 MG TAB (BENADRYL) PO PRN (20:12)
[2020-02-18] MEDS: SENNOSIDES 8.6 MG (SENOKOT) TAB PO SCH (20:12)
[2020-02-18] MEDS: DOCUSATE SODIUM 100 MG (COLACE) CAP PO SCH (20:14)
[2020-02-18] MEDS: meTOprolol TARTRATE 25 MG (LOPRESSOR) TABLET PO SCH (20:14)
[2020-02-18] MEDS: ZONISAMIDE 100 MG CAP (ZONEGRAN) NON-FORMULARY PO SCH (20:15)
[2020-02-18] MEDS: rOPINIRole 1 MG (REQUIP) TABLET PO SCH (20:16)
[2020-02-18] MEDS: LEVOFLOXACIN 750 MG/D5W 150 ML PRE-MIX IV SCH (20:22)
[2020-02-18] MEDS: CATHETER FLUSH 10 ML SYR IV SCH (20:23)
[2020-02-18] MEDS ORDERED: FUROSEMIDE 40 MG/4 ML INJ (LASIX) IVP ONE (20:45)
[2020-02-18] MEDS ORDERED: TORSEMIDE 50 MG PO SCH (21:00)
[2020-02-18 21:01] LABS: HEPATITIS C ANTIBODY C Non-Reactive (Non-Reactive)
[2020-02-19] MEDS: RT-ALBUTEROL HFA (PROAIR HFA) 8.5 GM IH SCH ×6 (02:00→21:38)
[2020-02-19] MEDS: methylPREDNISolone 40 MG/ML (Solu-MEDROL) VIAL IV SCH ×4 (03:30→20:55)
[2020-02-19 03:35] VITALS: BP 178/82
[2020-02-19] MEDS: diphenhydrAMINE 25 MG TAB (BENADRYL) PO PRN (03:38)
[2020-02-19] MEDS: ALPRAZolam 0.25 MG (XANAX) TAB PO PRN ×2 (03:38→20:53)
[2020-02-19 04:38] LABS: BASOPHILS % (AUTO) 0 % (0-10); EOSINOPHILS % (AUTO) 0 % (0-10); HEMATOCRIT 34 % (35-52); HEMOGLOBIN 10.7 G/DL (11.5-16.0); LYMPHOCYTES # (AUTO) 0.6 X 10^3 (1.0-4.0); LYMPHOCYTES % (AUTO) 4 % (12-44); MEAN CORPUSCULAR HEMOGLOBIN 30 PG (25-34); MEAN CORPUSCULAR HGB CONC 31 G/DL (32-36); MEAN CORPUSCULAR VOLUME 96 FL (80-99); MEAN PLATELET VOLUME 9.9 FL (7.4-10.4); MONOCYTES # (AUTO) 0.9 X 10^3 (0.0-1.0); MONOCYTES % (AUTO) 6 % (0-12); NEUTROPHILS # (AUTO) 12.8 X 10^3 (1.8-7.8); NEUTROPHILS % (AUTO) 89 % (42-75); PLATELET COUNT 280 10^3/uL (130-400); RED CELL DISTRIBUTION WIDTH 15.4 % (10.0-14.5); WHITE BLOOD COUNT 14.4 10^3/uL (4.3-11.0)
[2020-02-19 04:56] LABS: ALANINE AMINOTRANSFERASE 172 U/L (0-55); ALBUMIN 2.8 GM/DL (3.2-4.5); ALKALINE PHOSPHATASE 301 U/L (40-136); BILIRUBIN,TOTAL 0.3 MG/DL (0.1-1.0); BUN/CREATININE RATIO 41; CALCIUM 9.1 MG/DL (8.5-10.1); CARBON DIOXIDE 33 MMOL/L (21-32); CHLORIDE 98 MMOL/L (98-107); CREATININE SERUM 0.91 MG/DL (0.60-1.30); GFR ESTIMATED > 60; GLUCOSE 222 MG/DL (70-105); POTASSIUM 3.8 MMOL/L (3.6-5.0); SODIUM 145 MMOL/L (135-145); TOTAL PROTEIN 7.9 GM/DL (6.4-8.2)
[2020-02-19] MEDS: FUROSEMIDE 40 MG/4 ML INJ (LASIX) IVP SCH ×2 (05:59→17:05)
[2020-02-19] MEDS: CATHETER FLUSH 10 ML SYR IV SCH ×3 (05:59→20:52)
[2020-02-19] MEDS: inSUlin ASPART (NovoLOG) 1 UNIT/0.01 ML (CHARGE PER UNIT) SC SCH ×4 (06:01→21:00)
[2020-02-19 08:00] VITALS: BP 169/81
[2020-02-19] MEDS: VENlafaxine 75 MG (EFFEXOR) TAB PO SCH ×4 (08:27→20:54)
[2020-02-19] MEDS: meTOprolol TARTRATE 25 MG (LOPRESSOR) TABLET PO SCH ×2 (08:27→20:54)
[2020-02-19] MEDS: GABAPENTIN 300 MG (NEURONTIN) CAP PO SCH ×3 (08:27→20:53)
[2020-02-19] MEDS: ENOXAPARIN 60 MG/0.6 ML (LOVENOX) SYR SC SCH (08:27)
[2020-02-19] MEDS: SENNOSIDES 8.6 MG (SENOKOT) TAB PO SCH ×2 (08:28→20:54)
[2020-02-19] MEDS: toPIRamate 25 MG (TOPAMAX) TAB PO SCH (08:28)
[2020-02-19] MEDS: ZONISAMIDE 100 MG CAP (ZONEGRAN) NON-FORMULARY PO SCH ×2 (08:28→21:00)
[2020-02-19] MEDS: DOCUSATE SODIUM 100 MG (COLACE) CAP PO SCH ×2 (08:28→20:55)
[2020-02-19] MEDS ORDERED: NON-FORMULARY MEDICATION 1 EA EA (Aripiprazole 5 MG) PO SCH (09:00)
--- NOTE | 2020-02-19 09:58 | Progress Note - Hospitalist ---
Subjective HPI/CC On Admission Date Seen by Provider: Feb 19, 2020 Time Seen by Provider: 09:30 Karen Ely is a 54-year-old female with past medical history of hypertension, diabetes, restless leg syndrome, hyperlipidemia, morbid obesity, who presented her [facility] with shortness of breath. She reports that she has been fee ling short of breath for the past couple of days. Prior to that about a week ago she developed paresthesias and weakness of her bilateral lower extremities. She reports that a week ago she is able to walk on her own but now is unable to move her legs. She reports lower back pain with sciatica down her left leg. She denies fevers and chills. She reports a dry cough. She denies any bowel incontinence. She has chronic urinary incontinence which is unchanged. She denies any chest pain. Subjective/Events-last exam she has no new complaints or concerns. She remains unable to move or feel her legs. She is short of breath. She denies any fevers or chills. She denies any chest pain. She denies any abdominal pain, nausea, or vomiting. She has a good appetite. Objective Exam Vital Signs Vital Signs Date Time Temp Pulse Resp B/P (MAP) Pulse Ox O2 Delivery O2 Flow Rate FiO2 02/19/20 08:00 96 Vapotherm 40.00 75 02/19/20 08:00 36.6 81 20 169/81 (110) Capillary Refill : Less Than 3 SecondsLess Than 3 Seconds General Appearance: No Apparent Distress, Obese HEENT: PERRL/EOMI, Other (poor dentition) Respiratory: No Respiratory Distress, Crackles, Decreased Breath Sounds, Wheezing, Other (wearing nasal cannula) Cardiovascular: Regular Rate, Rhythm Gastrointestinal: Normal Bowel Sounds, Non Tender, Soft Extremity: Normal Inspection, Non Tender, Pedal Edema, Swelling Neurologic/Psychiatric: Alert, Depressed Affect, Motor Weakness (bilateral lower extremity paralysis), Sensory Deficit Skin: Normal Color, Warm/Dry Results/Procedures Lab Laboratory Tests 02/19/20 04:00 Patient resulted labs reviewed. Imaging: Reviewed Imaging Films, Reviewed Imaging Report, Discussed Imaging with Radiologist Assessment/Plan Assessment and Plan Assess & Plan/Chief Complaint Acute osteomyelitis of the spine CT revealed severe destruction at T9T10 discussed with [facility] for possible transfer for neurosurgical evaluation but this was declined due to her respiratory status blood cultures obtained Obtain echocardiogram Acute respiratory failure with hypoxia Loculated pleural effusions continue Vapotherm CT revealed bilateral loculated pleural effusions Flu negative Procalcitonin elevated continue Levaquin Covid testing pending surgery consulted, plan for thoracentesis today Continue diuresis Elevated liver function tests Hepatitis panel pending Continue to monitor Type II diabetes mellitus Sliding scale insulin Hypertension Restless leg syndrome Hyperlipidemia Continue home meds Morbid obesity Clinically significant, no acute management needs DVT prophylaxis: Hold Lovenox for procedure Diagnosis/Problems Diagnosis/Problems (1) Acute osteomyelitis of spine Status: Acute (2) Acute respiratory failure with hypoxia Status: Acute (3) Elevated liver function tests Status: Acute (4) Morbid obesity Status: Chronic (5) HTN (hypertension) Status: Chronic Qualifiers: Hypertension type: essential hypertension Qualified Codes: I10 - Essential (primary) hypertension (6) T2DM (type 2 diabetes mellitus) Status: Chronic Qualifiers: Diabetes mellitus senior care insulin use: without terminal make up operator use (7) HLD (hyperlipidemia) Status: Chronic (8) RLS (restless legs syndrome) Status: Chronic (9) Weakness of both lower extremities Status: Acute (10) Paresthesia of both legs Status: Acute Clinical Quality Measures DVT/VTE Risk/Contraindication: Risk Factor Score Per Nursin RFS Level Per Nursing on Admit: 4+=Very High ANNABELLE BLOCK MD Feb 19, 2020 09:58
[2020-02-19 12:00] VITALS: BP 145/73
--- NOTE | 2020-02-19 12:52 | Consultation - Surgery ---
History of Present Illness History of Present Illness Patient Consulted On(max/time) 02/19/20 12:50 Time Seen by Provider: 12:03 History of Present Illness Surgery asked to consult regarding Pleural Effusion and Acute Respiratory Failure. HPI per ED: Patient presents via EMS with complaint of shortness of air for the past 1-2 days. Currently in a prison for rehabilitative care as she's had significant physical decline no longer walking and unable to care for herself. Does complain of some chest tightness. States she can't move either of her legs, but can move both arms without any limitation. Denies loss of bowel or bladder control. Does have chronic low back pain. Recently seen in this ER for fecal impaction. HPI per IM: Karen Ely is a 54-year-old female with past medical history of hypertension, diabetes, restless leg syndrome, hyperlipidemia, morbid obesity, who presented from her prison with shortness of breath. She reports that she has been feeling short of breath for the past couple of days. Prior to that about a week ago she developed paresthesias and weakness of her bilateral lower extremities. She reports that a week ago she is able to walk on her own but now is unable to move her legs. She reports lower back pain with sciatica down her left leg. She denies fevers and chills. She reports a dry cough. She denies any bowel incontinence. She has chronic urinary incontinence which is unchanged. She denies any chest pain. When I saw pt she was in isolation, in mild respiratory distress and was complaining most about having to wear a mask. She thought her breathing was about same, maybe slightly better. CT scan showed B/L pleural effusions; right worse than left. Pt was also complaining of a burning pain in the RLQ. She has romero in place and apparently has diuresed quite a bit of fluids. Allergies and Home Medications Allergies Coded Allergies: adhesive tape (Unverified Allergy, Unknown, 01/16/20) Home Medications Alprazolam 0.25 Mg Tablet, 0.25 MG PO Q8H PRN for ANXIETY, (Reported) CAN TAKE 1 TAB EVERY 8 HOURS DURING THE DAY- IF THE PT HAS NOT HAD MORE THEN 2 DOSES DURING THE DAY THEN PT CAN HAVE 2 TABS AT BEDTIME. MAY NOT EXCEED 4 TABS PER 24 HOURS Alprazolam 0.25 Mg Tablet, 0.5 MG PO HS PRN for ANXIETY, (Reported) CAN TAKE 1 TAB EVERY 8 HOURS DURING THE DAY- IF THE PT HAS NOT HAD MORE THEN 2 DOSES DURING THE DAY THEN PT CAN HAVE 2 TABS AT BEDTIME. MAY NOT EXCEED 4 TABS PER 24 HOURS Aripiprazole 5 Mg Tablet, 5 MG PO DAILY, (Reported) Atorvastatin Calcium 40 Mg Tablet, 40 MG PO DAILY, (Reported) Calcium Carbonate/Vitamin D3 1 Each Tablet, 1 EACH PO DAILY, (Reported) Celecoxib 400 Mg Capsule, 400 MG PO DAILY, (Reported) Cholecalciferol (Vitamin D3) 50 Mcg Capsule, 50 MCG PO DAILY, (Reported) Cyclobenzaprine HCl 10 Mg Tablet, 10 MG PO Q8H PRN for PAIN, (Reported) Docusate Sodium 100 Mg Capsule, 100 MG PO BID, (Reported) Ergocalciferol (Vitamin D2) 1,250 Mcg Capsule, 1,250 MCG PO SUE HORN, (Reported) Gabapentin 300 Mg Capsule, 300 MG PO TID, (Reported) Hydrochlorothiazide 12.5 Mg Tablet, 12.5 MG PO DAILY, (Reported) Ibuprofen 600 Mg Tablet, 600 MG PO TID, (Reported) Metformin HCl 500 Mg Tablet, 250 MG PO DAILY, (Reported) TAKES OF A 500MG TAB DAILY Metoprolol Tartrate 25 Mg Tablet, 25 MG PO BID, (Reported) HOLD FOR SBP OF 110 OR BELOW, PULSE OF 60 OR BELOW Multivitamin 1 Each Tablet, 1 EACH PO DAILY, (Reported) Omeprazole 20 Mg Capsule.dr, 20 MG PO BID, (Reported) Polyethylene Glycol 3350 17 Gm Powd.pack, 17 GM PO DAILY, (Reported) Potassium Chloride 20 Meq Tablet.er, 20 MEQ PO DAILY, (Reported) Ropinirole HCl 1 Mg Tablet, 1 MG PO HS, (Reported) Thiamine HCl 250 Mg Tablet, 250 MG PO DAILY, (Reported) Topiramate 25 Mg Tablet, 25 MG PO DAILY, (Reported) Torsemide 100 Mg Tablet, 50 MG PO BID, (Reported) TAKES TAB OF 100MG TO EQUAL 50MG TWICE DAILY Venlafaxine HCl 75 Mg Tab, 75 MG PO QID, (Reported) Zonisamide 100 Mg Capsule, 200 MG PO BID, (Reported) TAKES 2 (100MG) CAPS TO EQUAL 200MG TWICE DAILY Patient Home Medication List Home Medication List Reviewed: Yes Past Anirurs-Xtelkn-Fxyuon Hx Patient Social History Alcohol Use: Denies Use Recreational Drug Use: No Smoking Status: Former Smoker 2nd Hand Smoke Exposure: No Recent Foreign Travel: No Contact w/Someone Who Travel: No Recent Infectious Disease Expo: No Recent Hopitalizations: No Immunizations Up To Date Date of Pneumonia Vaccine: Sep 27, 2019 Date of Influenza Vaccine: Sep 27, 2019 Seasonal Allergies Seasonal Allergies: No Surgeries History of Surgeries: Yes (Gastric bypass) Surgeries: Gallbladder Respiratory History of Respiratory Disorde: No Cardiovascular History of Cardiac Disorders: Yes Cardiac Disorders: Chronic Edema/Swelling, High Cholesterol, Hypertension Neurological History of Neurological Disord: No Reproductive System : No Genitourinary History of Genitourinary Disor: No Gastrointestinal History of Gastrointestinal Di: Yes Gastrointestinal Disorders: Gastroesophageal Reflux Musculoskeletal History of Musculoskeletal Dis: No (Restless leg syndrome) Endocrine History of Endocrine Disorders: Yes Endocrine Disorders: Diabetes, Non-Insulin dep HEENT History of HEENT Disorders: No Cancer History of Cancer: No Psychosocial History of Psychiatric Problem: Yes Behavioral Health Disorders: Anxiety, Depression Integumentary History of Skin or Integumenta: No Blood Transfusions History of Blood Disorders: No Family Medical History Significant Family History: Diabetes (siblings), Hypertension (siblings), Renal Disease (brother) Review of Systems-General Constitutional: chills, malaise, weakness EENTM: dental problems; No blurred vision, No double vision, No epistaxis, No throat swelling Respiratory: cough, dyspnea on exertion; No hemoptysis, No phlegm; short of breath Cardiovascular: No chest pain; edema; No vascular heart diseas Gastrointestinal: RLQ, constipation; No dysphagia, No hematemesis, No jaundice, No melena Genitourinary: No dysuria, No frequency, No hematuria Musculoskeletal: back pain, joint pain, joint swelling, muscle pain, muscle stiffness, muscle weakness Skin: No change in color, No change in hair/nails; other (chronic lymphedema of lower extremities) Psychiatric/Neurological: Anxiety, Depressed, Paresthesia; Denies Seizure; Weakness Other pt denies hx of abnormal bleeding or bruising Physical Exam-General Problems Physical Exam Vital Signs Vital Signs - First Documented 02/17/20 02/17/20 02/19/20 19:07 23:02 06:45 Temp 36.1 Pulse 84 Resp 18 B/P (MAP) 146/98 (114) Pulse Ox 92 O2 Delivery Nasal Cannula O2 Flow Rate 5.00 FiO2 75 Capillary Refill : Less Than 3 SecondsLess Than 3 Seconds General Appearance: WD/WN, mild distress, obese (super morbidly obese) Eyes: Bilateral Eye PERRL, Bilateral Eye EOMI HEENT: pharynx normal; No scleral icterus (R), No scleral icterus (L); other (poor dentition) Neck: full range of motion, supple Respiratory: chest non-tender, respiratory distress (mild, but on Vapotherm), decreased breath sounds, accessory muscle use, crackles, rhonchi Cardiovascular: regular rate, rhythm, no murmur Gastrointestinal: soft, no organomegaly, hernia (incarcerated umbilical hernia) Back: CVA tenderness (R), CVA tenderness (L), vertebral tenderness Extremities: no calf tenderness, pedal edema, other (cannot lumber mover her lower extremities, still has sensation) 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, alert, oriented x 3, depressed affect (but also very anxious) Skin: normal color, warm/dry Lymphatic: no adenopathy (neck, axilla or groin) Data Review Labs Laboratory Tests 02/18/20 16:43: Glucometer 303H 02/18/20 19:50: Glucometer 328H 02/19/20 04:00: White Blood Count 14.4H, Red Blood Count 3.58L, Hemoglobin 10.7L, Hematocrit 34L , Mean Corpuscular Volume 96, Mean Corpuscular Hemoglobin 30, Mean Corpuscular Hemoglobin Concent 31L, Red Cell Distribution Width 15.4H, Platelet Count 280, Mean Platelet Volume 9.9, Neutrophils (%) (Auto) 89H, Lymphocytes (%) (Auto) 4L, Monocytes (%) (Auto) 6, Eosinophils (%) (Auto) 0, Basophils (%) (Auto) 0, Neutrophils # (Auto) 12.8H, Lymphocytes # (Auto) 0.6L, Monocytes # (Auto) 0.9, Eosinophils # (Auto) 0.0, Basophils # (Auto) 0.0, Erythrocyte Sedimentation Rate > 140H, Sodium Level 145, Potassium Level 3.8, Chloride Level 98, Carbon Dioxide Level 33H, Anion Gap 14, Blood Urea Nitrogen 37H, Creatinine 0.91, Estimat Glomerular Filtration Rate > 60, BUN/Creatinine Ratio 41, Glucose Level 222H, Calcium Level 9.1, Corrected Calcium 10.1, Total Bilirubin 0.3, Aspartate Amino Transf (AST/SGOT) 254H, Alanine Aminotransferase (ALT/SGPT) 172H, Alkaline Phosphatase 301H, Lactate Dehydrogenase 423H, Total Creatine Kinase 134, C- Reactive Protein High Sensitivity 25.96H, Total Protein 7.9, Albumin 2.8L, Procalcitonin 0.26H 02/19/20 12:33: Glucometer 291H Microbiology 02/17/20 Influenza Types A,B Antigen ([facility]) - Final, Complete Assessment/Plan Assessment/Plan Assessment/Plan B/L Pleural Effusion Acute Respiratory Failure Osteomyelitis of Spine I spoke with Dr. Frost last night regarding possible Thoracentesis to drain fluid (for culture and to hopefully help with breathing). Her CT also unfortunately showed erosion of T9 (probably Osteomyelitis) which is most likely causing the neuro symptoms in her legs. I spoke with Spine Surgery last night and while a major surgery is her only hope of getting function back and being able to walk; surgery itself has a very high mortality rate because of her lungs. He felt saving her life by getting her lungs better was the most important thing and that unfortunately would mean she may be permanently paralyzed. I did an US and unfortunately could not see a large enough fluid collection to attempt thoracentesis; risk was to high of damage to her lungs. Would recommend continue diuresing (believe this may be why I didn't find large fluid collection in lung) and then check with CXR and possibly CT scan on Friday (possibly with CT guided drainage by radiology at that time). I explained all of this to the pt and all questions answered to her satisfaction. Clinical Quality Measures DVT/VTE Risk/Contraindication: Risk Factor Score Per Nursin RFS Level Per Nursing on Admit: 4+=Very High GLADIS OBREGON DO Feb 19, 2020 12:51
[2020-02-19 16:00] VITALS: BP 137/79
--- NOTE | 2020-02-19 16:54 | NUR ---
Received notice from [facility] that patient did not meet qualifications for testing of COVID-19 and her test was rejected and we could remove her from isolation. [facility] Dr [facility] RN[facility]
--- NOTE | 2020-02-19 17:00 | NUR ---
Received phone call from Renato Olivares Infection control nurse at this time to discontinue droplet isolation.
[2020-02-19 19:45] VITALS: BP 137/83
[2020-02-19] MEDS: LEVOFLOXACIN 750 MG/D5W 150 ML PRE-MIX IV SCH (20:51)
[2020-02-19] MEDS: MELATONIN 3 MG TABLET PO PRN (20:54)
[2020-02-19] MEDS: rOPINIRole 1 MG (REQUIP) TABLET PO SCH (21:00)
[2020-02-20] VITALS (7 sets, daily range): BP systolic 128–181; BP diastolic 69–85
[2020-02-20] MEDS: RT-ALBUTEROL HFA (PROAIR HFA) 8.5 GM IH SCH ×6 (01:10→22:46)
[2020-02-20] MEDS: methylPREDNISolone 40 MG/ML (Solu-MEDROL) VIAL IV SCH ×4 (05:10→20:53)
[2020-02-20] MEDS: inSUlin ASPART (NovoLOG) 1 UNIT/0.01 ML (CHARGE PER UNIT) SC SCH ×4 (05:13→20:53)
[2020-02-20] MEDS: FUROSEMIDE 40 MG/4 ML INJ (LASIX) IVP SCH ×2 (05:13→16:28)
[2020-02-20] MEDS: CATHETER FLUSH 10 ML SYR IV SCH ×3 (05:14→20:54)
[2020-02-20 08:33] LABS: BUN/CREATININE RATIO 44; CALCIUM 8.8 MG/DL (8.5-10.1); CARBON DIOXIDE 35 MMOL/L (21-32); CHLORIDE 94 MMOL/L (98-107); CREATININE SERUM 0.84 MG/DL (0.60-1.30); GFR ESTIMATED > 60; GLUCOSE 239 MG/DL (70-105); MAGNESIUM 2.1 MG/DL (1.6-2.4); POTASSIUM 3.5 MMOL/L (3.6-5.0); SODIUM 142 MMOL/L (135-145)
[2020-02-20] MEDS: toPIRamate 25 MG (TOPAMAX) TAB PO SCH (10:03)
[2020-02-20] MEDS: VENlafaxine 75 MG (EFFEXOR) TAB PO SCH ×4 (10:03→20:53)
[2020-02-20] MEDS: SENNOSIDES 8.6 MG (SENOKOT) TAB PO SCH ×2 (10:03→20:53)
[2020-02-20] MEDS: meTOprolol TARTRATE 25 MG (LOPRESSOR) TABLET PO SCH ×2 (10:03→20:53)
[2020-02-20] MEDS: GABAPENTIN 300 MG (NEURONTIN) CAP PO SCH ×3 (10:03→20:53)
[2020-02-20] MEDS: DOCUSATE SODIUM 100 MG (COLACE) CAP PO SCH ×2 (10:03→20:53)
[2020-02-20] MEDS: ZONISAMIDE 100 MG CAP (ZONEGRAN) NON-FORMULARY PO SCH ×2 (10:04→20:57)
[2020-02-20] MEDS ORDERED: KCL 20 MEQ TAB (K-DUR) PO ONE (10:30)
--- NOTE | 2020-02-20 10:35 | Progress Note - Hospitalist ---
Subjective HPI/CC On Admission Date Seen by Provider: Feb 20, 2020 Time Seen by Provider: 09:00 Karen Ely is a 54-year-old female with past medical history of hypertension, diabetes, restless leg syndrome, hyperlipidemia, morbid obesity, who presented her senior living with shortness of breath. She reports that she has been fee ling short of breath for the past couple of days. Prior to that about a week ago she developed paresthesias and weakness of her bilateral lower extremities. She reports that a week ago she is able to walk on her own but now is unable to move her legs. She reports lower back pain with sciatica down her left leg. She denies fevers and chills. She reports a dry cough. She denies any bowel incontinence. She has chronic urinary incontinence which is unchanged. She denies any chest pain. Subjective/Events-last exam she reports some back pain today. She denies any fevers or chills. She denies any shortness of breath or chest pain. Her appetite has been good. Objective Exam Vital Signs Vital Signs Date Time Temp Pulse Resp B/P (MAP) Pulse Ox O2 Delivery O2 Flow Rate FiO2 02/20/20 08:00 37.3 85 18 138/69 (92) 95 Vapotherm 25.00 60.00 02/20/20 06:14 65 Capillary Refill : Less Than 3 SecondsLess Than 3 Seconds General Appearance: No Apparent Distress, Obese HEENT: PERRL/EOMI, Other (poor dentition) Respiratory: No Respiratory Distress, Wheezing Cardiovascular: Regular Rate, Rhythm, No Murmur Gastrointestinal: Normal Bowel Sounds, Non Tender, Soft Extremity: Non Tender, Swelling, Other (lymphedema) Neurologic/Psychiatric: Alert, Oriented x3, Depressed Affect, Motor Weakness (bilateral lower extremities), Sensory Deficit Skin: Normal Color, Warm/Dry Results/Procedures Lab Laboratory Tests 02/20/20 08:10 Patient resulted labs reviewed. Assessment/Plan Assessment and Plan Assess & Plan/Chief Complaint Acute osteomyelitis of the spine CT revealed severe destruction at T9T10 discussed with [facility] for possible transfer for neurosurgical evaluation but this was declined due to her respiratory status blood cultures obtained, no growth today Echo revealed no vegetations, some valves poorly visualized Acute respiratory failure with hypoxia Loculated pleural effusions continue Vapotherm, wean as able to keep saturations greater than [address] revealed bilateral loculated pleural effusions Flu negative Covid negative Procalcitonin elevated continue Levaquin surgery consulted, attempted thoracentesis but could not find a good pocket need to discuss tomorrow possible CT-guided thoracentesis and possible biopsy to identify infectious source of osteomyelitis Continue diuresis if respiratory status improving, need to reevaluate possible surgical intervention with Dr. Phillips hypokalemia Continue to monitor and replace as needed Elevated liver function tests Hepatitis panel negative Continue to monitor Type II diabetes mellitus Sliding scale insulin Hypertension Restless leg syndrome Hyperlipidemia Continue home meds Morbid obesity Clinically significant, no acute management needs DVT prophylaxis: Hold Lovenox for possible procedure Diagnosis/Problems Diagnosis/Problems (1) Acute osteomyelitis of spine Status: Acute (2) Acute respiratory failure with hypoxia Status: Acute (3) Elevated liver function tests Status: Acute (4) Morbid obesity Status: Chronic (5) HTN (hypertension) Status: Chronic Qualifiers: Hypertension type: essential hypertension Qualified Codes: I10 - Essential (primary) hypertension (6) T2DM (type 2 diabetes mellitus) Status: Chronic Qualifiers: Diabetes mellitus watermelon inspector insulin use: without long-term use (7) HLD (hyperlipidemia) Status: Chronic (8) RLS (restless legs syndrome) Status: Chronic (9) Weakness of both lower extremities Status: Acute (10) Paresthesia of both legs Status: Acute Clinical Quality Measures DVT/VTE Risk/Contraindication: Risk Factor Score Per Nursin RFS Level Per Nursing on Admit: 4+=Very High ANNABELLE BLOCK MD Feb 20, 2020 10:35
--- NOTE | 2020-02-20 13:39 | Progress Note - Surgery ---
Subjective Time Seen by a Provider: 12:36 Subjective/Events-last exam Pt seen and examined, states her breathing is better; "I coughed some stuff up". Review of Systems General: Fatigue, Malaise Pulmonary: Dyspnea, Cough Cardiovascular: No: Chest Pain, Palpitations Gastrointestinal: No: Nausea, Vomiting, Abdominal Pain Objective Exam Vital Signs Date Time Temp Pulse Resp B/P (MAP) Pulse Ox O2 Delivery O2 Flow Rate FiO2 02/20/20 12:00 36.4 77 18 128/70 (89) 90 Vapotherm 25.00 50.00 02/20/20 08:00 37.3 85 18 138/69 (92) 95 Vapotherm 25.00 60.00 02/20/20 08:00 Vapotherm 25.00 50 02/20/20 06:14 93 Vapotherm 25.00 65 02/20/20 05:23 36.5 02/20/20 05:11 36.5 02/20/20 04:28 36.5 81 18 138/76 (96) 95 Vapotherm 25.00 70.00 02/20/20 01:12 Vapotherm 25.00 65 02/20/20 00:05 36.7 80 20 149/70 (96) 94 Vapotherm 25.00 70.00 02/19/20 21:57 36.1 02/19/20 21:42 96 Vapotherm 25.00 70 02/19/20 20:53 36.1 02/19/20 20:00 96 Vapotherm 25.00 02/19/20 19:45 36.1 92 22 137/83 (101) 90 Vapotherm 25.00 70.00 02/19/20 18:40 84 Vapotherm 15.00 50 02/19/20 16:00 36.5 86 20 137/79 (98) 90 Vapotherm 15.00 50.00 02/19/20 14:42 93 Vapotherm 30.00 60 I & O 02/20/20 07:00 Intake Total 2420 ml Output Total 4100 ml Balance -1680 ml Capillary Refill : Less Than 3 SecondsLess Than 3 Seconds General Appearance: No Apparent Distress (appears to be breathing easier than yesterday), Obese HEENT: PERRL/EOMI, Other (poor dentition) Respiratory: No Respiratory Distress, Crackles (at base), Decreased Breath Sounds, Wheezing Cardiovascular: Regular Rate, Rhythm, No Murmur Gastrointestinal: soft, no organomegaly, hernia (incarcerated umbilical hernia) Extremity: Non Tender, Swelling, Other (lymphedema) Neurologic/Psychiatric: Alert, Oriented x3, Depressed Affect, Motor Weakness (bilateral lower extremities), Sensory Deficit Results Lab Laboratory Tests 02/19/20 16:03: Glucometer 276H 02/19/20 20:34: Glucometer 322H 02/20/20 05:07: Glucometer 215H 02/20/20 08:10: Sodium Level 142, Potassium Level 3.5L, Chloride Level 94L, Carbon Dioxide Level 35H, Anion Gap 13, Blood Urea Nitrogen 37H, Creatinine 0.84, Estimat Glomerular Filtration Rate > 60, BUN/Creatinine Ratio 44, Glucose Level 239H, Calcium Level 8.8, Magnesium Level 2.1 02/20/20 11:05: Glucometer 209H Microbiology 02/18/20 Blood Culture - Preliminary, Resulted No growth 02/17/20 Throat Culture - Final, Complete Staphylococcus aureus Assessment/Plan Assessment/Plan Assessment/Plan B/L Pleural Effusion Acute Respiratory Failure Osteomyelitis of Spine Breathing appears somewhat better (diuresing appears to be helping), coming down on Vapotherm. She still has the erosion of T9 (probably Osteomyelitis) which is most likely causing the neuro symptoms in her legs. Next step is CXR and possibly CT scan on Friday (possibly with CT guided drainage by radiology at that time), because we still don't have a source if this is bacterial erosion of vertebra. Pt had no questions. Since her breathing is improving, may need to revisit with Spine Surgery. Clinical Quality Measures DVT/VTE Risk/Contraindication: Risk Factor Score Per Nursin RFS Level Per Nursing on Admit: 4+=Very High GLADIS OBREGON DO Feb 20, 2020 13:39
[2020-02-20] MEDS: ALPRAZolam 0.25 MG (XANAX) TAB PO PRN (17:49)
[2020-02-20] MEDS: LEVOFLOXACIN 750 MG/D5W 150 ML PRE-MIX IV SCH (20:47)
[2020-02-20] MEDS: rOPINIRole 1 MG (REQUIP) TABLET PO SCH (20:57)
[2020-02-21] VITALS (7 sets, daily range): BP systolic 138–174; BP diastolic 72–98
[2020-02-21] MEDS: RT-ALBUTEROL HFA (PROAIR HFA) 8.5 GM IH PRN (03:42)
[2020-02-21] MEDS: ALPRAZolam 0.25 MG (XANAX) TAB PO PRN ×2 (03:42→20:24)
[2020-02-21] MEDS: methylPREDNISolone 40 MG/ML (Solu-MEDROL) VIAL IV SCH ×4 (03:42→20:24)
[2020-02-21] MEDS: RT-ALBUTEROL HFA (PROAIR HFA) 8.5 GM IH SCH ×6 (03:45→22:06)
[2020-02-21 05:31] LABS: BASOPHILS % (AUTO) 0 % (0-10); EOSINOPHILS % (AUTO) 0 % (0-10); HEMATOCRIT 37 % (35-52); HEMOGLOBIN 11.2 G/DL (11.5-16.0); LYMPHOCYTES # (AUTO) 0.9 X 10^3 (1.0-4.0); LYMPHOCYTES % (AUTO) 10 % (12-44); MEAN CORPUSCULAR HEMOGLOBIN 30 PG (25-34); MEAN CORPUSCULAR HGB CONC 31 G/DL (32-36); MEAN CORPUSCULAR VOLUME 96 FL (80-99); MEAN PLATELET VOLUME 10.3 FL (7.4-10.4); MONOCYTES # (AUTO) 0.5 X 10^3 (0.0-1.0); MONOCYTES % (AUTO) 6 % (0-12); NEUTROPHILS # (AUTO) 7.3 X 10^3 (1.8-7.8); NEUTROPHILS % (AUTO) 84 % (42-75); PLATELET COUNT 305 10^3/uL (130-400); RED CELL DISTRIBUTION WIDTH 15.4 % (10.0-14.5); WHITE BLOOD COUNT 8.7 10^3/uL (4.3-11.0)
[2020-02-21 05:52] LABS: ALANINE AMINOTRANSFERASE 261 U/L (0-55); ALBUMIN 2.8 GM/DL (3.2-4.5); ALKALINE PHOSPHATASE 296 U/L (40-136); BILIRUBIN,TOTAL 0.3 MG/DL (0.1-1.0); BUN/CREATININE RATIO 43; CARBON DIOXIDE 34 MMOL/L (21-32); CHLORIDE 95 MMOL/L (98-107); CREATININE SERUM 0.79 MG/DL (0.60-1.30); GFR ESTIMATED > 60; GLUCOSE 320 MG/DL (70-105); POTASSIUM 3.7 MMOL/L (3.6-5.0); SODIUM 141 MMOL/L (135-145); TOTAL PROTEIN 7.8 GM/DL (6.4-8.2)
[2020-02-21] MEDS: inSUlin ASPART (NovoLOG) 1 UNIT/0.01 ML (CHARGE PER UNIT) SC SCH ×4 (06:18→20:25)
[2020-02-21] MEDS: CATHETER FLUSH 10 ML SYR IV SCH ×3 (06:18→22:14)
--- NOTE | 2020-02-21 06:56 | Diagnostic Imaging Report ---
INDICATION: Respiratory failure COMPARISON: 02/17/2020 TECHNIQUE: Single radiograph chest dated 02/21/2020. FINDINGS: The cardiac silhouette is enlarged, though appears slightly less prominent. Improved aeration of the lungs with improved perihilar opacities. Small left basilar pleural-parenchymal opacity is noted, appearing improved. Additional right basilar opacities are again noted with associated trace right pleural effusion. No pneumothorax. Osseous structures appear stable. IMPRESSION: Slightly improved aeration of the lungs with improved though persisting perihilar opacities and left greater than right bibasilar pleural-parenchymal opacities. Dictated by: Dictated on workstation # [id number]
[2020-02-21] MEDS: FUROSEMIDE 40 MG/4 ML INJ (LASIX) IVP SCH ×2 (08:02→17:27)
[2020-02-21] MEDS: ZONISAMIDE 100 MG CAP (ZONEGRAN) NON-FORMULARY PO SCH ×2 (08:03→20:37)
[2020-02-21] MEDS: meTOprolol TARTRATE 25 MG (LOPRESSOR) TABLET PO SCH ×2 (08:03→20:24)
[2020-02-21] MEDS: DOCUSATE SODIUM 100 MG (COLACE) CAP PO SCH ×2 (08:03→20:24)
[2020-02-21] MEDS: GABAPENTIN 300 MG (NEURONTIN) CAP PO SCH ×3 (08:03→20:24)
[2020-02-21] MEDS: toPIRamate 25 MG (TOPAMAX) TAB PO SCH (08:03)
[2020-02-21] MEDS: SENNOSIDES 8.6 MG (SENOKOT) TAB PO SCH ×2 (08:03→20:24)
[2020-02-21] MEDS: VENlafaxine 75 MG (EFFEXOR) TAB PO SCH ×4 (08:03→20:25)
--- NOTE | 2020-02-21 09:28 | Progress Note - Hospitalist ---
Subjective HPI/CC On Admission Date Seen by Provider: Feb 21, 2020 Time Seen by Provider: 09:30 Karen Ely is a 54-year-old female with past medical history of hypertension, diabetes, restless leg syndrome, hyperlipidemia, morbid obesity, who [facility]. She reports that she has been fee ling short of breath for the past couple of days. Prior to that about a week ago she developed paresthesias and weakness of her bilateral lower extremities. She reports that a week ago she is able to walk on her own but now is unable to move her legs. She reports lower back pain with sciatica down her left leg. She denies fevers and chills. She reports a dry cough. She denies any bowel incontinence. She has chronic urinary incontinence which is unchanged. She denies any chest pain. Subjective/Events-last exam Patient breathing better Conferred with Dr Garcia who conferred with Dr Fletcher regarding possibly an IR procedure to evaluate spine osteo and pleural effusions CXR appears a bit improved Still on Vapotherm and [facility] will not accept until she is off Vapotherm Patient does not use O2 at home Patient appears to be very chronically debilitated but she states she was in "excellent" health before this Has [employer] workers and providers she states Morbid obesity with BMI 56 concerning and complicating the situation Conferred with RN Reviewed meds and labs Review of Systems General: Fatigue Pulmonary: Dyspnea, Cough Musculoskeletal: back pain Objective Exam Vital Signs Vital Signs Date Time Temp Pulse Resp B/P (MAP) Pulse Ox O2 Delivery O2 Flow Rate FiO2 02/21/20 16:18 36.0 76 20 138/81 (100) 93 Vapotherm 20.00 50.00 02/21/20 11:12 45 Capillary Refill : Less Than 3 SecondsLess Than 3 Seconds General Appearance: WD/WN, Anxious, Chronically ill, Mild Distress, Obese Respiratory: No Accessory Muscle Use, No Respiratory Distress, Decreased Breath Sounds, Wheezing Cardiovascular: Regular Rate, Rhythm Neurologic/Psychiatric: Alert, Oriented x3, No Motor/Sensory Deficits, franchise manager II- XII Norm as Tested, Depressed Affect Results/Procedures Lab Laboratory Tests 02/21/20 04:50 Patient resulted labs reviewed. Assessment/Plan Assessment and Plan Assess & Plan/Chief Complaint Assessment per Dr Frost with my modifications: Acute osteomyelitis of the spine CT revealed severe destruction at T9T10 discussed with [facility] for possible transfer for neurosurgical evaluation but this was declined due to her respiratory status- awaiting wean of Vapotherm to even be a candidate for transfer blood cultures obtained, no growth today Echo revealed no vegetations, some valves poorly visualized Acute respiratory failure with hypoxia Loculated pleural effusions continue Vapotherm, wean as able to keep saturations greater than [address] revealed bilateral loculated pleural effusions Flu negative Covid negative Procalcitonin elevated continue Levaquin surgery consulted, attempted thoracentesis but could not find a good pocket need to discuss tomorrow possible CT-guided thoracentesis and possible biopsy to identify infectious source of osteomyelitis Continue diuresis if respiratory status improving, need to reevaluate possible surgical intervention with [facility]? hypokalemia Continue to monitor and replace as needed Elevated liver function tests Hepatitis panel negative Continue to monitor Type II diabetes mellitus Sliding scale insulin Hypertension Restless leg syndrome Hyperlipidemia Continue home meds Morbid obesity Clinically significant, no acute management needs DVT prophylaxis: Restarted Lovenox since procedure likely will be delayed Diagnosis/Problems Diagnosis/Problems (1) Acute osteomyelitis of spine Status: Acute (2) Weakness of both lower extremities Status: Acute (3) Acute respiratory failure with hypoxia Status: Acute (4) T2DM (type 2 diabetes mellitus) Status: Chronic Qualifiers: Diabetes mellitus alf insulin use: without alf use (5) Paresthesia of both legs Status: Acute (6) RLS (restless legs syndrome) Status: Chronic (7) Elevated liver function tests Status: Acute (8) HLD (hyperlipidemia) Status: Chronic (9) HTN (hypertension) Status: Chronic Qualifiers: Hypertension type: essential hypertension Qualified Codes: I10 - Essential (primary) hypertension (10) Morbid obesity Status: Chronic (11) Hypoxia Status: Acute (12) Depression Status: Acute (13) Chronic pain Status: Acute Clinical Quality Measures DVT/VTE Risk/Contraindication: Risk Factor Score Per Nursin RFS Level Per Nursing on Admit: 4+=Very High KATELYN JENSEN DO Feb 21, 2020 09:28
--- NOTE | 2020-02-21 10:47 | NUR ---
"RD ASSESSMENT PMHx: HTN; DM; HLD; obesity; GERD PT INTERACTION: Pt was awake and pleasant during consult for MST score. Pt states current appetite is alright. Note avg PO intake 50-75% meals, per chart review. Pt states following gastric bypass diet at home, and has no issues with chewing/swallowing food. Note pt has poor dentition, per visual exam. Pt states no recent issues with n/v at this time. Pt states some recent issues with constipation, and that her last BM was 02/19. Note pt currently on bowel regimen of colace BID; and senna BID, per chart review. Pt states unsure of recent wt changes. Note unable to determine recent wt hx per chart review. Upon visual exam, pt appears to be very well nourished with no visible signs of muscle/fat wasting, and a BMI of 56.4. Given current PO intake, and unknown wt hx, pt does not meet criteria for malnutrition per ASPEN guidelines. ABNORMAL NUTRITION-RELATED LAB VALUES LOW: Cl 95; alb 2.8 HIGH: BNU 34; glu 320; AST 249; ALT 261; alkphos 296 Est. kcal needs: 8716-7416 kcal | 25-30 kcal/kg IBW; based on IBW of 61.4 kg (135#) Est. Pro needs: 49-61 g Pro | 0.8-1.0 g Pro/kg IBW; based on IBW of 61.4 kg (135#) PES STATEMENT: Inadequate oral intake (NI-2.1) related to loss of appetite | constipation as evidenced by pt interview | avg PO intake 50-75% meals INTERVENTION: Continue with current diet order of 2000mg Na diet. Pt may benefit from consistent CHO diet restriction as blood glucose levels are elevated. Discontinue nutrition supplementation order of Ensure Enlive with meals. Encouraged pt to eat when able. Will continue to follow and reassess as pt needs, intake, and status change. MONITOR/EVALUATE: PO Intake; Plan of Care; Hydration Status; Weight Status; Lab Values Miladys Kaufman, MS, RD, LD"
--- NOTE | 2020-02-21 15:30 | NUR ---
pt was asleep and did not want to be woken up for treatment Addendum: 02/21/20 at 1530 by TESSY AYOUB RT Amended: Links added.
[2020-02-21] MEDS: ENOXAPARIN 60 MG/0.6 ML (LOVENOX) SYR SC SCH (20:25)
[2020-02-21] MEDS: rOPINIRole 1 MG (REQUIP) TABLET PO SCH (20:37)
[2020-02-21] MEDS: LEVOFLOXACIN 750 MG/D5W 150 ML PRE-MIX IV SCH (21:09)
[2020-02-22] MEDS: RT-ALBUTEROL HFA (PROAIR HFA) 8.5 GM IH SCH ×5 (01:55→21:28)
[2020-02-22] MEDS: methylPREDNISolone 40 MG/ML (Solu-MEDROL) VIAL IV SCH ×4 (03:07→19:34)
[2020-02-22 04:00] VITALS: BP 143/80
[2020-02-22] MEDS: inSUlin ASPART (NovoLOG) 1 UNIT/0.01 ML (CHARGE PER UNIT) SC SCH ×4 (06:27→19:39)
[2020-02-22] MEDS: FUROSEMIDE 40 MG/4 ML INJ (LASIX) IVP SCH ×2 (06:27→17:09)
[2020-02-22] MEDS: CATHETER FLUSH 10 ML SYR IV SCH ×3 (06:27→22:11)
[2020-02-22 06:41] LABS: BASOPHILS % (AUTO) 0 % (0-10); EOSINOPHILS % (AUTO) 0 % (0-10); HEMATOCRIT 37 % (35-52); HEMOGLOBIN 11.4 G/DL (11.5-16.0); LYMPHOCYTES % (AUTO) 9 % (12-44); MEAN CORPUSCULAR HEMOGLOBIN 30 PG (25-34); MEAN CORPUSCULAR HGB CONC 31 G/DL (32-36); MEAN CORPUSCULAR VOLUME 96 FL (80-99); MEAN PLATELET VOLUME 10.6 FL (7.4-10.4); MONOCYTES # (AUTO) 0.6 X 10^3 (0.0-1.0); MONOCYTES % (AUTO) 5 % (0-12); NEUTROPHILS # (AUTO) 10.2 X 10^3 (1.8-7.8); NEUTROPHILS % (AUTO) 87 % (42-75); PLATELET COUNT 335 10^3/uL (130-400); RED CELL DISTRIBUTION WIDTH 15.6 % (10.0-14.5); WHITE BLOOD COUNT 11.7 10^3/uL (4.3-11.0)
[2020-02-22 06:57] LABS: ALANINE AMINOTRANSFERASE 274 U/L (0-55); ALBUMIN 2.9 GM/DL (3.2-4.5); ALKALINE PHOSPHATASE 279 U/L (40-136); BILIRUBIN,TOTAL 0.4 MG/DL (0.1-1.0); BUN/CREATININE RATIO 46; CALCIUM 9.2 MG/DL (8.5-10.1); CARBON DIOXIDE 31 MMOL/L (21-32); CHLORIDE 96 MMOL/L (98-107); CREATININE SERUM 0.78 MG/DL (0.60-1.30); GFR ESTIMATED > 60; GLUCOSE 335 MG/DL (70-105); POTASSIUM 3.8 MMOL/L (3.6-5.0); SODIUM 139 MMOL/L (135-145); TOTAL PROTEIN 8.3 GM/DL (6.4-8.2)
[2020-02-22 08:00] VITALS: BP 113/73
[2020-02-22] MEDS: VENlafaxine 75 MG (EFFEXOR) TAB PO SCH ×4 (08:32→19:30)
[2020-02-22] MEDS: SENNOSIDES 8.6 MG (SENOKOT) TAB PO SCH ×2 (08:32→19:33)
[2020-02-22] MEDS: GABAPENTIN 300 MG (NEURONTIN) CAP PO SCH ×3 (08:32→19:32)
[2020-02-22] MEDS: meTOprolol TARTRATE 25 MG (LOPRESSOR) TABLET PO SCH ×2 (08:32→19:32)
[2020-02-22] MEDS: ENOXAPARIN 60 MG/0.6 ML (LOVENOX) SYR SC SCH ×2 (08:32→19:39)
[2020-02-22] MEDS: DOCUSATE SODIUM 100 MG (COLACE) CAP PO SCH ×2 (08:32→19:32)
[2020-02-22] MEDS: toPIRamate 25 MG (TOPAMAX) TAB PO SCH (08:32)
--- NOTE | 2020-02-22 08:32 | NUR ---
CM/SS: Late entry - 02-21-2020 - Visited with pt as to her plan for discharge Plan: Undetermined at this time Summary: Pt reports she wants to go home. This worker visits with pt as to how she was managing at home prior to coming to hospital. She reports fine. She reports having been at ER x 3 and then went to [facility]. She reports only being a [facility] for a few days and was unable to work on getting stronger due to some declines in her health. Discussed realistic plan, and if pt is unable to bear weight, a step may need to be facility, then home. Pt tearful and seems ok with that, if that is how it will need to be. Pt gives the Ok to call her niece Steffany [phone] and discuss plan of care. This worker received call earlier in the day 02-21-2020 from [facility] that they are willing to to take pt back. Call to Steffany - [phone] - niece of pt. She would like to see pt return home but they would need a lift and other equipment. She reports a nephew lives in the home with pt, and she can help also. 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 Discussed placement and other options. Nida is ok for a facetime call to occur at around 11:30am. on 02-22-2020, so that we can all visit about the plan. This worker will notify pt prior to the call.
[2020-02-22] MEDS: ZONISAMIDE 100 MG CAP (ZONEGRAN) NON-FORMULARY PO SCH ×2 (08:37→19:30)
[2020-02-22] MEDS: ALPRAZolam 0.25 MG (XANAX) TAB PO PRN ×2 (08:38→19:32)
--- NOTE | 2020-02-22 11:33 | Progress Note - Hospitalist ---
Subjective HPI/CC On Admission Date Seen by Provider: Feb 22, 2020 Time Seen by Provider: 10:30 Karen Ely is a 54-year-old female with past medical history of hypertension, diabetes, restless leg syndrome, hyperlipidemia, morbid obesity, who presented her group home with shortness of breath. She reports that she has been fee ling short of breath for the past couple of days. Prior to that about a week ago she developed paresthesias and weakness of her bilateral lower extremities. She reports that a week ago she is able to walk on her own but now is unable to move her legs. She reports lower back pain with sciatica down her left leg. She denies fevers and chills. She reports a dry cough. She denies any bowel incontinence. She has chronic urinary incontinence which is unchanged. She denies any chest pain. Subjective/Events-last exam Conferred with Dr Phillips and DR Garcia and reviewed the case Levaquin tolerated well Hematogenous spread is assumed from osteomyelitis and destruction of the T9 vertebral process although no BCx was positive and patient had too high of risk for biopsy or surgery since risks outweighed benefits so she will be maintained on IV abx and therapies were ordered I did speak to her today and told her I would review the case but she is essentially a paraplegic currently. BM+ today Pain is well controlled Lovenox restarted since no surgery planned since risks outweighed benefits IRF and PT OT ordered Working to wean off Vapotherm SW will have family conference today at 1130 Review of Systems General: Fatigue Pulmonary: Dyspnea Musculoskeletal: back pain Objective Exam Vital Signs Vital Signs Date Time Temp Pulse Resp B/P (MAP) Pulse Ox O2 Delivery O2 Flow Rate FiO2 02/22/20 20:00 36.5 78 20 110/65 (80) 95 Vapotherm 02/22/20 20:00 20.00 02/22/20 18:31 40 Capillary Refill : Less Than 3 SecondsLess Than 3 Seconds General Appearance: No Apparent Distress, WD/WN, Chronically ill, Obese Respiratory: Chest Non Tender, Lungs Clear, Normal Breath Sounds, No Accessory Muscle Use, No Respiratory Distress, Decreased Breath Sounds Cardiovascular: Regular Rate, Rhythm, No Edema, No Gallop, No JVD, No Murmur, Normal Peripheral Pulses Neurologic/Psychiatric: Alert, Motor Weakness (legs) Results/Procedures Lab Laboratory Tests 3/24/20 06:05 02/22/20 06:25 Patient resulted labs reviewed. Assessment/Plan Assessment and Plan Assess & Plan/Chief Complaint Assessment per Dr Frost with my modifications: Acute osteomyelitis of the spine CT revealed severe destruction at T9T10 discussed with [facility] for possible transfer for neurosurgical evaluation but this was declined due to her respiratory status- awaiting wean of Vapotherm to even be a candidate for transfer blood cultures obtained, no growth today Echo revealed no vegetations, some valves poorly visualized Acute respiratory failure with hypoxia Loculated pleural effusions continue Vapotherm, wean as able to keep saturations greater than [address] revealed bilateral loculated pleural effusions Flu negative Covid negative Procalcitonin elevated continue Levaquin surgery consulted, attempted thoracentesis but could not find a good pocket need to discuss tomorrow possible CT-guided thoracentesis and possible biopsy to identify infectious source of osteomyelitis Continue diuresis if respiratory status improving, need to reevaluate possible surgical intervention with [facility]? hypokalemia Continue to monitor and replace as needed Elevated liver function tests Hepatitis panel negative Continue to monitor Type II diabetes mellitus Sliding scale insulin Hypertension Restless leg syndrome Hyperlipidemia Continue home meds Morbid obesity Clinically significant, no acute management needs DVT prophylaxis: Restarted Lovenox since no procedure is planned Diagnosis/Problems Diagnosis/Problems (1) Acute osteomyelitis of spine Status: Acute (2) Weakness of both lower extremities Status: Acute (3) Acute respiratory failure with hypoxia Status: Acute (4) T2DM (type 2 diabetes mellitus) Status: Chronic Qualifiers: 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 insulin use: without exterminator helper termite use (5) Paresthesia of both legs Status: Acute (6) RLS (restless legs syndrome) Status: Chronic (7) Elevated liver function tests Status: Acute (8) HLD (hyperlipidemia) Status: Chronic (9) HTN (hypertension) Status: Chronic Qualifiers: Hypertension type: essential hypertension Qualified Codes: I10 - Essential (primary) hypertension (10) Morbid obesity Status: Chronic (11) Hypoxia Status: Acute (12) Depression Status: Acute (13) Chronic pain Status: Acute Clinical Quality Measures DVT/VTE Risk/Contraindication: Risk Factor Score Per Nursin RFS Level Per Nursing on Admit: 4+=Very High KATELYN JENSEN DO Feb 22, 2020 11:33
--- NOTE | 2020-02-22 13:36 | Physical Therapy Evaluation ---
PT Evaluation-General Medical Diagnosis Admission Date Feb 17, 2020 at 21:40 Medical Diagnosis: Dyspnea, hypoxia, pneumonia Onset Date: Feb 17, 2020 Therapy Diagnosis Therapy Diagnosis: impaired mobility Precautions Precautions/Isolations: Fall Prevention, Standard Precautions Referral Physician: Pete Reason for Referral: Evaluation/Treatment Medical History Pertinent Medical History: DM, GERD, HTN Additional Medical History gastric bypass, cholecystectomy, hyperlipidemia, morbid obesity, restless leg syndrome, anxiety, depression Current History Pt was seen in the ED at [facility] on 02/11, 02/12, and 02/13 for constipation, back pain, and parasthesia respectively. She was able to ambulate into the ED on the and , but by the required mechanical lift to transfer. She was sent to a NH in [place] where she spent 2 days and then transferred to [place] due to dyspnea. While in the NH she was a laura lift for all mobility. She has not been able to perform any lower extremity movement since her ED visit on 02/12. Reviewed History: Yes Social History Home: Single Level Current Living Status: Other Family Entry Into Home: Level Entry PT Steps Into Home: 0 PT Steps Inside Home: 0 Pt reports that she lives with her nephew. Prior Prior Level of Function SCALE: Activities may be completed with or without assistive devices. 9-Nloyzikurl-xvbaojx completes the activity by him/herself with no assistance from a helper. 5-Set-up or Clean-up Assistance-helper sets up or cleans up; patient completes activity. [place] assists only prior to or following the activity. 4-Supervision or Touching Assistance-helper provides verbal cues and/or touching/steadying and/or contact guard assistance as patient completes activity. Assistance may be provided throughout the activity or intermittently. 3-Partial/Moderate Assistance-helper does LESS THAN HALF the effort. [place] lifts, holds or supports trunk or limbs, but provides less than half the effort. 2-Substantial/Maximal Assistance-helper does MORE THAN HALF the effort. [place] lifts or holds trunk or limbs and provides more than half the effort. 1-Zimwzaphd-sivkcn does ALL the effort. Patient does none of the effort to complete the activity. Or, the assistance of 2 or more helpers is required for the patient to complete the activity. If activity was not attempted, code reason: 7-Patient Refused. 9-Not Applicable-not attempted and the patient did not perform the activity before the current illness, exacerbation or injury. 10-Not Attempted due to Environmental Limitations-(lack of equipment, weather restraints, etc.). 88-Not Attempted due to Medical Conditions or Safety Concerns. Bed Mobility: 6 Transfers (B,C,W/C): 6 Gait: 6 Stairs: 6 Indoor Mobility (Ambulation): Independent Stairs: Independent Prior Devices Use: Walker Prior Device Use: Pt used a 4 wheeled walker and was able to ambulate (I) in the home ED documentation from 02/12 states that she was ambulatory at that time, and was able to move her legs (I) at that time. PT Evaluation-Current Subjective Pt is in bed, alert and oriented. She states that she is unable to move her legs. She does report feeling in the legs and intermittent shooting pain in (B) legs. Pt denied pain during this evaluation. Objective Patient Orientation: Person, Place, Time, Situation Attachments: Oxygen, White Catheter ROM/Strength ROM Upper Extremities WFL ROM Lower Extremities Impaired (B) LE PROM due to LE girth. Pt is only able to move the (R) great toe into extension. Otherwise, no other lower extremity voluntary movement observed. Strength Upper Extremities WFL Strength Lower Extremities Pt unable to move the lower extremities with the exception of the (R) great toe. Neuromuscular (Tone, Coordination, Reflexes) Normal (B) LE patellar tendon and achilles reflexes. No abnormal reflexes observed in the lower extremities. Sensory Vision: Wears Glasses Hearing: Functional Sensation Right Upper Extremit: Intact Sensation Left Upper Extremity: Intact Sensation Right Lower Extremit: Intact Sensation Left Lower Extremity: Intact Sensation Lower Extremities Performed sensory test with a tissue. Pt was able to feel all of the points (B) in the lower legs and feet. Transfers Roll Left to Right (QC): 1 Sit to Lying (QC): 1 Lying to Sitting/Side of Bed(Q: 88 Sit to Stand (QC): 88 Chair/Xbc-tc-Ilqgz Xfer(QC): 88 Toilet Transfer (QC): 88 Car Transfer (QC): 88 Pt was not able to participate with any aspect of supine to/from sitting. Unable to move the legs in any way during evaluation. Gait Does the Patient Walk?: No and Walking Goal IS indicated Anticipated Mode of Locomotion: Walk Assessment/Needs Pt was not able to participate with any lower extremity movement or testing. She has most recently been transferring with a laura lift in the NH. She was pleasant and stated that she was trying to move her legs but was simply unable to move. She is not able to sit upright and maintain a seated position at all. Rehab Potential: Poor PT Short Term Goals Short Term Goals Time Frame: Feb 29, 2020 Roll Left & Right: 3 Sit to lyin Lying to sitting on side of be: 3 Sit to stand: 2 Chair/qhk-jb-qsbdx transfer: 2 Toilet transfer: 2 PT Elementary School Teacher'S Aide Goals Fpc Goals PT Fpc Goals Time Frame: Mar 07, 2020 Roll Left & Right (QC): 4 Sit to Lying (QC): 4 Lying-Sitting on Side/Bed(QC): 4 Sit to Stand (QC): 4 Chair/Ysm-wi-Mybqg Xfer(QC): 4 Toilet Transfer (QC): 4 PT Plan Problem List Problem List: Functional Strength, Gait, Transfer, Bed Mobility, ROM Treatment/Plan Treatment Plan: Continue Plan of Care Treatment Plan: Bed Mobility, Functional Activity Regulo, Functional Strength, Gait, Therapeutic Exercise, Transfers Treatment Duration: Mar 07, 2020 Frequency: 6 times per week Estimated Hrs Per Day: .5 hour per day Patient and/or Family Agrees t: Yes Time/GCodes Time In: 1250 Time Out: 1315 Total Billed Treatment Time: 25 Total Billed Treatment 1, abrammodc 25 ABEL CASTRO PT Feb 22, 2020 13:36
--- NOTE | 2020-02-22 15:19 | Occupational Therapy Eval ---
OT Evaluation-General/PLF Medical Diagnosis Admission Date Feb 17, 2020 at 21:40 Medical Diagnosis: Dyspnea, hypoxia, pneumonia Onset Date: Feb 17, 2020 Therapy Diagnosis Therapy Diagnosis: impaired self car skills Precautions Precautions/Isolations: Fall Prevention, Standard Precautions Safety Interventions: None Referral Physician: Pete Medical History Pertinent Medical History: DM, GERD, HTN Additional Medical History RLS, hyperlipidemia, obesity, chronic edema, anxiety, depression, Social History Home: Single Level Current Living Status: Other Family Entry Into Home: Level Entry Steps Into Home: 0 Steps Inside Home: 0 ADL-Prior Level of Function SCALE: Activities may be completed with or without assistive devices. 6-Mjmsfhuffn-bnovovz completes the activity by him/herself with no assistance from a helper. 5-Set-up or Clean-up Assistance-helper sets up or cleans up; patient completes activity. [place] assists only prior to or following the activity. 4-Supervision or Touching Assistance-helper provides verbal cues and/or touching/steadying and/or contact guard assistance as patient completes activity. Assistance may be provided throughout the activity or intermittently. 3-Partial/Moderate Assistance-helper does LESS THAN HALF the effort. [place] lifts, holds or supports trunk or limbs, but provides less than half the effort. 2-Substantial/Maximal Assistance-helper does MORE THAN HALF the effort. [place] lifts or holds trunk or limbs and provides more than half the effort. 5-Jxtnrgrlz-tsmddw does ALL the effort. Patient does none of the effort to complete the activity. Or, the assistance of 2 or more helpers is required for the patient to complete the activity. If activity was not attempted, code reason: 7-Patient Refused. 9-Not Applicable-not attempted and the patient did not perform the activity before the current illness, exacerbation or injury. 10-Not Attempted due to Environmental Limitations-(lack of equipment, weather restraints, etc.). 88-Not Attempted due to Medical Conditions or Safety Concerns. ADL PLOF Comments Pt reports she was at a SNF for a few days prior to admission to hospital. Prior to that she was living at home with her nephew, but states she was able to walk and completed her basic self care without assist. DME/Equipment: Bath Chair, Shower OT Current Status Subjective Pt in bed, agrees to therapy. Has no c/o pain Mental Status/Objective Patient Orientation: Person, Place Attachments: Oxygen (vapotherm) Current Glasses/Contacts: Yes Hearing Aids: No Dentures/Partials: No Hand Dominance: Right Upper Extremity ROM grossly WFL Upper Extremity Coordination Intact Upper Extremity Sensation Intact per pt report Upper Extremity Strength grossly4-/5 ADL-Treatment ADL-Current Pt participated in UE assessment while in bed. Pt states she has already completed ADLs today. Education provided regarding role of OT and plan of care. Pt states understanding of education and has is in agreement with plan. Pt resting in bed with needs met after session. Eating (QC): 5 (Per pt report) Oral Hygiene (QC): 7 Shower/Bathe Self (QC): 7 On/Off Footwear (QC): 1 Education OT Patient Education: Rehab process Teaching Recipient: Patient Teaching Methods: Discussion Response to Teaching: Verbalize Understanding OT Trim Mechanic Goals Chcf Goals Time Frame: Feb 29, 2020 Eating (QC): 6 Oral Hygiene (QC): 6 Shower/Bathe Self (QC): 3 Upper Body Dressing (QC): 5 Additional Goals: 1-Demonstrate ADL Tasks, 2-Verbalize Understanding, 3- ImproveStrength/Regulo 1=Demonstrate adherence to instructed precautions during ADL tasks. 2=Patient will verbalize/demonstrate understanding of assistive devices/modifications for ADL. 3=Patient will improve strength/tolerance for activity to enable patient to perform ADL's. OT Education/Plan Problem List/Assessment Assessment: Decreased Activ Tolerance, Decreased UE Strength, Dependent Transfers, Impaired I ADL's, Impaired Self-Care Skills Discharge Recommendations Plan/Recommendations: Continue POC Treatment Plan/Plan of Care Treatment,Training & Education: Yes Patient would benefit from OT for education, treatment and training to promote independence in ADL's, mobility, safety and/or upper extremity function for ADL's. Plan of Care: ADL Retraining, Functional Mobility, UE Funct Exercise/Act Treatment Duration: Feb 29, 2020 Frequency: 5 times per week Estimated Hrs Per Day: .25 hour per day Rehab Potential: Poor Time/GCodes Start Time: 14:32 Stop Time: 14:42 Total Time Billed (hr/min): 10 Billed Treatment Time 1 visit, EVMichelle(10minutes) YANIRA YADAV OT Feb 22, 2020 15:18
[2020-02-22 16:47] VITALS: BP 136/87
[2020-02-22] MEDS: diphenhydrAMINE 25 MG TAB (BENADRYL) PO PRN (19:30)
[2020-02-22] MEDS: rOPINIRole 1 MG (REQUIP) TABLET PO SCH (19:31)
[2020-02-22] MEDS: MELATONIN 3 MG TABLET PO PRN (19:33)
[2020-02-22 20:00] VITALS: BP 110/65
[2020-02-22] MEDS: LEVOFLOXACIN 750 MG/D5W 150 ML PRE-MIX IV SCH (22:11)
[2020-02-23] VITALS (8 sets, daily range): BP systolic 119–146; BP diastolic 66–85
[2020-02-23] MEDS: RT-ALBUTEROL HFA (PROAIR HFA) 8.5 GM IH SCH ×4 (02:01→14:25)
[2020-02-23] MEDS: FUROSEMIDE 40 MG/4 ML INJ (LASIX) IVP SCH ×2 (05:27→16:35)
[2020-02-23] MEDS: CATHETER FLUSH 10 ML SYR IV SCH ×3 (05:29→21:38)
[2020-02-23] MEDS: ALPRAZolam 0.25 MG (XANAX) TAB PO PRN ×2 (05:31→12:01)
[2020-02-23] MEDS: inSUlin ASPART (NovoLOG) 1 UNIT/0.01 ML (CHARGE PER UNIT) SC SCH ×3 (05:33→21:26)
[2020-02-23] MEDS: methylPREDNISolone 40 MG/ML (Solu-MEDROL) VIAL IV SCH ×3 (05:33→21:38)
[2020-02-23] MEDS: RT-ALBUTEROL HFA (PROAIR HFA) 8.5 GM IH PRN (07:07)
[2020-02-23] MEDS: toPIRamate 25 MG (TOPAMAX) TAB PO SCH (07:35)
[2020-02-23] MEDS: GABAPENTIN 300 MG (NEURONTIN) CAP PO SCH ×3 (07:35→21:28)
[2020-02-23] MEDS: ZONISAMIDE 100 MG CAP (ZONEGRAN) NON-FORMULARY PO SCH ×2 (07:35→21:28)
[2020-02-23] MEDS: VENlafaxine 75 MG (EFFEXOR) TAB PO SCH ×4 (07:35→21:27)
[2020-02-23] MEDS: DOCUSATE SODIUM 100 MG (COLACE) CAP PO SCH ×2 (07:35→21:27)
[2020-02-23] MEDS: SENNOSIDES 8.6 MG (SENOKOT) TAB PO SCH ×2 (07:35→21:28)
[2020-02-23] MEDS: meTOprolol TARTRATE 25 MG (LOPRESSOR) TABLET PO SCH ×2 (07:35→21:28)
[2020-02-23] MEDS: ENOXAPARIN 60 MG/0.6 ML (LOVENOX) SYR SC SCH ×2 (07:36→21:29)
--- NOTE | 2020-02-23 10:32 | Progress Note - Hospitalist ---
Subjective HPI/CC On Admission Date Seen by Provider: Feb 23, 2020 Time Seen by Provider: 09:30 Karen Ely is a 54-year-old female with past medical history of hypertension, diabetes, restless leg syndrome, hyperlipidemia, morbid obesity, who presented her correction with shortness of breath. She reports that she has been feeling short of breath for the past couple of days. Prior to that about a week ago she developed paresthesias and weakness of her bilateral lower extremities. She reports that a week ago she is able to walk on her own but now is unable to move her legs. She reports lower back pain with sciatica down her left leg. She denies fevers and chills. She reports a dry cough. She denies any bowel incontinence. She has chronic urinary incontinence which is unchanged. She denies any chest pain. Subjective/Events-last exam Off Vapotherm and she looks really good and she states she feels better Completely dependent so she will need NH at [place] Eyes hurt and are blurry and that could be due to steroids so decreasing those from q6 to q12 80mg and refresh tears TID and she told me she has early macular degeneration BM+ White cath still in place Pain controlled Reaching out to [facility] again if they have anything additional because if they don't and don't intend to perform any procedure since too risky will not transport her due to high risk for spine movement which could worsen issues Review of Systems General: Fatigue Pulmonary: Dyspnea Genitourinary: Retention Musculoskeletal: back pain Objective Exam Vital Signs Vital Signs Date Time Temp Pulse Resp B/P (MAP) Pulse Ox O2 Delivery O2 Flow Rate FiO2 02/23/20 12:00 36.2 64 18 146/80 (102) 95 Nasal Cannula 3.00 02/23/20 07:13 40 Capillary Refill : Less Than 3 SecondsLess Than 3 Seconds General Appearance: No Apparent Distress, WD/WN, Chronically ill, Other (improved) Respiratory: Lungs Clear, Normal Breath Sounds, No Accessory Muscle Use, No Respiratory Distress Cardiovascular: Regular Rate, Rhythm Neurologic/Psychiatric: Alert, Oriented x3, No Motor/Sensory Deficits (except paraplegia), Normal Mood/Affect Results/Procedures Lab Patient resulted labs reviewed. Assessment/Plan Assessment and Plan Assess & Plan/Chief Complaint Assessment per Dr Frost with my modifications: Acute osteomyelitis of the spine CT revealed severe destruction at T9T10 discussed with [facility] for possible transfer for neurosurgical evaluation but this was declined due to her respiratory status- awaiting wean of Vapotherm to even be a candidate for transfer now reaching out again since off Vapotherm and decreasing steroids blood cultures obtained, no growth to date Echo revealed no vegetations, some valves poorly visualized Acute respiratory failure with hypoxia Loculated pleural effusions continue Vapotherm, wean as able to keep saturations greater than 90 percent- now weaned CT revealed bilateral loculated pleural effusions Flu negative Covid negative Procalcitonin elevated continue Levaquin surgery consulted, attempted thoracentesis but could not find a good pocket need to discuss tomorrow possible CT-guided thoracentesis and possible biopsy to identify infectious source of osteomyelitis Continue diuresis if respiratory status improving, need to reevaluate possible surgical i ntervention with [facility]? hypokalemia Continue to monitor and replace as needed Elevated liver function tests Hepatitis panel negative Continue to monitor Type II diabetes mellitus Sliding scale insulin Hypertension Restless leg syndrome Hyperlipidemia Continue home meds Morbid obesity Clinically significant, no acute management needs DVT prophylaxis: Restarted Lovenox since no procedure is planned Diagnosis/Problems Diagnosis/Problems (1) Acute osteomyelitis of spine Status: Acute (2) Weakness of both lower extremities Status: Acute (3) Acute respiratory failure with hypoxia Status: Acute (4) T2DM (type 2 diabetes mellitus) Status: Chronic Qualifiers: Diabetes mellitus long-term insulin use: without long-term use (5) Paresthesia of both legs Status: Acute (6) RLS (restless legs syndrome) Status: Chronic (7) Elevated liver function tests Status: Acute (8) HLD (hyperlipidemia) Status: Chronic (9) HTN (hypertension) Status: Chronic Qualifiers: Hypertension type: essential hypertension Qualified Codes: I10 - Essential (primary) hypertension (10) Morbid obesity Status: Chronic (11) Hypoxia Status: Acute (12) Depression Status: Acute (13) Chronic pain Status: Acute Clinical Quality Measures DVT/VTE Risk/Contraindication: Risk Factor Score Per Nursin RFS Level Per Nursing on Admit: 4+=Very High KATELYN JENSEN DO Feb 23, 2020 10:31
--- NOTE | 2020-02-23 11:05 | NUR ---
RD FOLLOW-UP Met with pt today to talk about declining PO intake. Note avg PO intake 25-50% x4d. INTERVENTION: Continue with current diet order of 2000mg Na diet. Would recommend consistent CHO restriction as blood glucose levels are above 300, per chart review. Add Glucerna (vary) to meals BID, for increased kcal intake. Provides 220 kcal and 10 g Pro per serving. Will continue to follow and reassess as pt needs, intake, and status change. Miladys Kaufman, MS, RD, LD
--- NOTE | 2020-02-23 13:30 | Physical Therapy Daily Note ---
PT Daily Note-Current Subjective Patient in bed pre tx, agrees to PT, has no complaints of pain at rest. Will be co-treating with OT due to poor patient mobility, strength, endurance, paraplegia, the need to coordinate UE and LE during activity. Appearance Patient in recliner post tx with nurse call, phone, tray, all needs met. Sling under patient so nursing can get her back to bed. Mental Status Patient Orientation: Person, Place, Situation Attachments: Oxygen Transfers SCALE: Activities may be completed with or without assistive devices. 2-Jatdegrrxu-awfgkju completes the activity by him/herself with no assistance from a helper. 5-Set-up or Clean-up Assistance-helper sets up or cleans up; patient completes activity. [place] assists only prior to or following the activity. 4-Supervision or Touching Assistance-helper provides verbal cues and/or touching/steadying and/or contact guard assistance as patient completes activity. Assistance may be provided throughout the activity or intermittently. 3-Partial/Moderate Assistance-helper does LESS THAN HALF the effort. [place] lifts, holds or supports trunk or limbs, but provides less than half the effort. 2-Substantial/Maximal Assistance-helper does MORE THAN HALF the effort. [place] lifts or holds trunk or limbs and provides more than half the effort. 9-Hkzqvsqgk-jtcaol does ALL the effort. Patient does none of the effort to complete the activity. Or, the assistance of 2 or more helpers is required for the patient to complete the activity. If activity was not attempted, code reason: 7-Patient Refused. 9-Not Applicable-not attempted and the patient did not perform the activity before the current illness, exacerbation or injury. 10-Not Attempted due to Environmental Limitations-(lack of equipment, weather restraints, etc.). 88-Not Attempted due to Medical Conditions or Safety Concerns. Roll Left & Right (QC): 1 Chair/Cjf-kx-Enhhb Xfer(QC): 1 Patient had to roll to each side for laura sling placement, hoyered to recliner easily with ceiling lift. Exercises BLE manual ankle stretching Treatments bed mobility and transfers, LE stretching Assessment Current Status: Poor Progress paraplegia, patient has no voluntary movement from waist down PT Short Term Goals Short Term Goals Time Frame: Feb 29, 2020 Roll Left & Right: 3 Sit to lyin Lying to sitting on side of be: 3 Sit to stand: 2 Chair/dmy-rt-nwxxt transfer: 2 Toilet transfer: 2 PT Skilled Nursing Goals Hosted Services Analyst Goals PT Hosted Services Analyst Goals Time Frame: Mar 07, 2020 Roll Left & Right (QC): 4 Sit to Lying (QC): 4 Lying-Sitting on Side/Bed(QC): 4 Sit to Stand (QC): 4 Chair/Wky-nt-Amump Xfer(QC): 4 Toilet Transfer (QC): 4 PT Plan Problem List Problem List: Activity Tolerance, Functional Strength, Safety, Balance, Gait, Transfer, Bed Mobility, ROM Treatment/Plan Treatment Plan: Continue Plan of Care Treatment Plan: Bed Mobility, Functional Activity Regulo, Functional Strength, Gait, Therapeutic Exercise, Transfers Treatment Duration: Mar 07, 2020 Frequency: 6 times per week Estimated Hrs Per Day: .5 hour per day Patient and/or Family Agrees t: Yes Safety Risks/Education Patient Education: Transfer Techniques, Correct Positioning, Safety Issues Teaching Recipient: Patient Teaching Methods: Demonstration, Discussion Response to Teaching: Reinforcement Needed Time/GCodes Time In: 1310 Time Out: 1325 Total Billed Treatment Time: 15 Total Billed Treatment 1 visit FA 15' Co-treated with OT for the whole 15'. PT performed rolling and transfer and LE stretching, OT performed sling placement and assist with rolling and transfer and performed UE activity. HIMANSHU MORGAN PT Feb 23, 2020 13:30
--- NOTE | 2020-02-23 13:49 | Occupational Ther Daily Note ---
OT Current Status-Daily Note Subjective Pt laying in bed at start of session, agreeable to OT session. Mental Status/Objective Attachments: Oxygen ADL-Treatment Therapy Code Descriptions/Definitions Functional [place] Measure: 0=Not Assessed/NA 4=Minimal Assistance 1=Total Assistance 5=Supervision or Setup 2=Maximal Assistance 6=Modified [place] 3=Moderate Assistance 7=Complete IndependenceSCALE: Activities may be completed with or without assistive devices. 7-Dkavzwpooa-pvbwsqc completes the activity by him/herself with no assistance from a helper. 5-Set-up or Clean-up Assistance-helper sets up or cleans up; patient completes activity. [place] assists only prior to or following the activity. 4-Supervision or Touching Assistance-helper provides verbal cues and/or touching/steadying and/or contact guard assistance as patient completes activity. Assistance may be provided throughout the activity or intermittently. 3-Partial/Moderate Assistance-helper does LESS THAN HALF the effort. [place] lifts, holds or supports trunk or limbs, but provides less than half the effort. 2-Substantial/Maximal Assistance-helper does MORE THAN HALF the effort. [place] lifts or holds trunk or limbs and provides more than half the effort. 5-Svohagvor-myaibz does ALL the effort. Patient does none of the effort to complete the activity. Or, the assistance of 2 or more helpers is required for the patient to complete the activity. If activity was not attempted, code reason: 7-Patient Refused. 9-Not Applicable-not attempted and the patient did not perform the activity before the current illness, exacerbation or injury. 10-Not Attempted due to Environmental Limitations-(lack of equipment, weather restraints, etc.). 88-Not Attempted due to Medical Conditions or Safety Concerns. Other Treatment OT/PT cotreat due to increased medical complexity, paraplegia, decreased strength and endurance requiring the skill of 2 disciplines which a rehabilitation physician could not perform. OT focused on UE placement, cues/sequencing for safety, and sling placement while PT focused on LE placement and overall gross movements. Pt rolled side to side in order for laura sling placement. Pt then transferred to the recliner using laura ceiling lift. Sling left underneath pt in order for nursing to transfer pt back to bed later. Pt performed BUEs in order to increase BUE strength and functional endurance. Pt performed x15 reps each of the following: shoulder flexion, elbow flexion/extension, and finger flexion/extension. OT educated pt on importance of completing exercises throughout the day, pt verbalized understanding. Post OT session, pt sitting in recliner, call light in reach and all needs met. Education OT Patient Education: Correct positioning, Energy conservation, Exercise program, Modified ADL techniques, Progress toward Goal/Update tx plan, Purpose of tx/functional activities, Safety issues, Transfer techniques Teaching Recipient: Patient Teaching Methods: Discussion Response to Teaching: Verbalize Understanding OT Correction Goals Replenishment Buyer Goals Time Frame: Feb 29, 2020 Eating (QC): 6 Oral Hygiene (QC): 6 Shower/Bathe Self (QC): 3 Upper Body Dressing (QC): 5 Additional Goals: 1-Demonstrate ADL Tasks, 2-Verbalize Understanding, 3- ImproveStrength/Regulo 1=Demonstrate adherence to instructed precautions during ADL tasks. 2=Patient will verbalize/demonstrate understanding of assistive devices/modifications for ADL. 3=Patient will improve strength/tolerance for activity to enable patient to perform ADL's. OT Education/Plan Problem List/Assessment Assessment: Decreased Activ Tolerance, Decreased UE Strength, Dependent Transfers, Impaired Bed Mobility, Impaired I ADL's, Impaired Self-Care Skills Discharge Recommendations Plan/Recommendations: Continue POC Treatment Plan/Plan of Care Patient would benefit from OT for education, treatment and training to promote independence in ADL's, mobility, safety and/or upper extremity function for ADL's. Plan of Care: ADL Retraining, Functional Mobility, UE Funct Exercise/Act Treatment Duration: Feb 29, 2020 Frequency: 5 times per week Estimated Hrs Per Day: .25 hour per day Rehab Potential: Poor Time/GCodes Start Time: 13:10 Stop Time: 13:25 Total Time Billed (hr/min): 15 Billed Treatment Time OT/PT co-treat 13:10-13:25 CHUCHO Batista ADDISON OT Feb 23, 2020 13:48
--- NOTE | 2020-02-23 13:58 | NUR ---
CM/SS: Visited with pt as to plan for discharge Plan: Undetermined at this time. Possible [facility] transfer or placement at skilled facility Summary: Pt is sitting up in the chair and reports she is glad to get out of the bed. Pt reports she had visited with the doctor and that they are checking into the [facility] option. Pt is reminded that we have also made a referral to [facility] for skilled stay. Pt is reminded that we also sent updated therapy notes to the facility as well. Pt is ok either way. She is reminded that we are waiting on decision and depending on outcome, we will know what direction we will need to go. She verbalized understanding. This worker will follow up.
[2020-02-23] MEDS ORDERED: RT-ALBUTEROL SULF 2.5 MG/3 ML PRE-MIX VIAL INH PRN (18:45)
[2020-02-23] MEDS: RT-ALBUTEROL SULF 2.5 MG/3 ML PRE-MIX VIAL INH SCH (21:21)
[2020-02-23] MEDS: ARTIFICAL TEARS 0.4 ML UNIT DOSE (REFRESH PLUS) OU SCH (21:26)
[2020-02-23] MEDS: rOPINIRole 1 MG (REQUIP) TABLET PO SCH (21:28)
[2020-02-23] MEDS ORDERED: LEVOFLOXACIN 750 MG/150 ML IV 150 ML IV ONE (21:33)
[2020-02-23] MEDS: LEVOFLOXACIN 750 MG/D5W 150 ML PRE-MIX IV SCH (21:47)
[2020-02-24] MEDS: RT-ALBUTEROL SULF 2.5 MG/3 ML PRE-MIX VIAL INH SCH ×2 (03:08→07:39)
[2020-02-24 04:07] VITALS: BP 127/75
[2020-02-24 06:10] LABS: BASOPHILS % (AUTO) 0 % (0-10); EOSINOPHILS % (AUTO) 0 % (0-10); HEMATOCRIT 41 % (35-52); HEMOGLOBIN 13.1 G/DL (11.5-16.0); LYMPHOCYTES # (AUTO) 1.5 X 10^3 (1.0-4.0); LYMPHOCYTES % (AUTO) 11 % (12-44); MEAN CORPUSCULAR HEMOGLOBIN 30 PG (25-34); MEAN CORPUSCULAR HGB CONC 32 G/DL (32-36); MEAN CORPUSCULAR VOLUME 95 FL (80-99); MEAN PLATELET VOLUME 10.8 FL (7.4-10.4); MONOCYTES # (AUTO) 0.5 X 10^3 (0.0-1.0); MONOCYTES % (AUTO) 3 % (0-12); NEUTROPHILS # (AUTO) 11.5 X 10^3 (1.8-7.8); NEUTROPHILS % (AUTO) 85 % (42-75); PLATELET COUNT 372 10^3/uL (130-400); RED CELL DISTRIBUTION WIDTH 15.2 % (10.0-14.5); WHITE BLOOD COUNT 13.5 10^3/uL (4.3-11.0)
[2020-02-24] MEDS: inSUlin ASPART (NovoLOG) 1 UNIT/0.01 ML (CHARGE PER UNIT) SC SCH ×4 (06:12→21:11)
[2020-02-24] MEDS: FUROSEMIDE 40 MG/4 ML INJ (LASIX) IVP SCH ×2 (06:12→16:24)
[2020-02-24] MEDS: CATHETER FLUSH 10 ML SYR IV SCH ×3 (06:13→21:20)
[2020-02-24 06:22] LABS: ALANINE AMINOTRANSFERASE 203 U/L (0-55); ALKALINE PHOSPHATASE 260 U/L (40-136); BILIRUBIN,TOTAL 0.4 MG/DL (0.1-1.0); BUN/CREATININE RATIO 55; CARBON DIOXIDE 34 MMOL/L (21-32); CHLORIDE 94 MMOL/L (98-107); CREATININE SERUM 0.77 MG/DL (0.60-1.30); GFR ESTIMATED > 60; GLUCOSE 262 MG/DL (70-105); SODIUM 138 MMOL/L (135-145); TOTAL PROTEIN 8.1 GM/DL (6.4-8.2)
[2020-02-24 08:00] VITALS: BP 135/77
[2020-02-24] MEDS: ARTIFICAL TEARS 0.4 ML UNIT DOSE (REFRESH PLUS) OU SCH ×3 (08:42→21:19)
[2020-02-24] MEDS: DOCUSATE SODIUM 100 MG (COLACE) CAP PO SCH ×2 (08:43→21:15)
[2020-02-24] MEDS: VENlafaxine 75 MG (EFFEXOR) TAB PO SCH ×4 (08:43→21:15)
[2020-02-24] MEDS: GABAPENTIN 300 MG (NEURONTIN) CAP PO SCH ×3 (08:43→21:15)
[2020-02-24] MEDS: toPIRamate 25 MG (TOPAMAX) TAB PO SCH (08:43)
[2020-02-24] MEDS: meTOprolol TARTRATE 25 MG (LOPRESSOR) TABLET PO SCH ×2 (08:43→21:15)
[2020-02-24] MEDS: ZONISAMIDE 100 MG CAP (ZONEGRAN) NON-FORMULARY PO SCH ×2 (08:43→21:14)
[2020-02-24] MEDS: SENNOSIDES 8.6 MG (SENOKOT) TAB PO SCH ×2 (08:43→21:15)
[2020-02-24] MEDS: methylPREDNISolone 40 MG/ML (Solu-MEDROL) VIAL IV SCH ×2 (08:44→21:15)
[2020-02-24] MEDS: ENOXAPARIN 60 MG/0.6 ML (LOVENOX) SYR SC SCH ×2 (08:44→21:09)
--- NOTE | 2020-02-24 09:42 | Progress Note - Hospitalist ---
Subjective HPI/CC On Admission Date Seen by Provider: Feb 24, 2020 Time Seen by Provider: 10:15 Karen Ely is a 54-year-old female with past medical history of hypertension, diabetes, restless leg syndrome, hyperlipidemia, morbid obesity, who presented her [facility] with shortness of breath. She reports that she has been fee ling short of breath for the past couple of days. Prior to that about a week ago she developed paresthesias and weakness of her bilateral lower extremities. She reports that a week ago she is able to walk on her own but now is unable to move her legs. She reports lower back pain with sciatica down her left leg. She denies fevers and chills. She reports a dry cough. She denies any bowel incontinence. She has chronic urinary incontinence which is unchanged. She denies any chest pain. Subjective/Events-last exam Patient tearful today Depressed about her situation Reviewed SPEP and sent those results to Dr Saenz in case he could help direct me regarding the next step. Levaquin maintained in meantime White in place [facility] placement is next step if [facility] has no other options Review of Systems General: Fatigue Musculoskeletal: back pain Neurological: Weakness, Numbness, Incoordination Objective Exam Vital Signs Vital Signs Date Time Temp Pulse Resp B/P (MAP) Pulse Ox O2 Delivery O2 Flow Rate FiO2 02/24/20 14:23 92 High Flow N/C 3.00 02/24/20 12:00 35.9 80 20 147/71 (96) 02/24/20 11:14 32 Capillary Refill : Less Than 3 SecondsLess Than 3 Seconds General Appearance: No Apparent Distress, WD/WN, Chronically ill, Obese Respiratory: Lungs Clear Cardiovascular: Regular Rate, Rhythm Neurologic/Psychiatric: Alert, Oriented x3, Normal Mood/Affect, Motor Weakness (legs paraplegia) Results/Procedures Lab Laboratory Tests 02/24/20 05:35 Patient resulted labs reviewed. Assessment/Plan Assessment and Plan Assess & Plan/Chief Complaint Assessment per Dr Frost with my modifications: Acute osteomyelitis of the spine versus destruction from MM?? Conferring with Oncology Dr Saenz CT revealed severe destruction at T9T10 discussed with [facility] for possible transfer for neurosurgical evaluation but this was declined due to her respiratory status- awaiting wean of Vapotherm to even be a candidate for transfer now reaching out again since off Vapotherm and decreasing steroids blood cultures obtained, no growth to date Echo revealed no vegetations, some valves poorly visualized Acute respiratory failure with hypoxia Loculated pleural effusions continue Vapotherm, wean as able to keep saturations greater than 90 percent- now weaned CT revealed bilateral loculated pleural effusions Flu negative Covid negative Procalcitonin elevated continue Levaquin surgery consulted, attempted thoracentesis but could not find a good pocket need to discuss tomorrow possible CT-guided thoracentesis and possible biopsy to identify infectious source of osteomyelitis Continue diuresis if respiratory status improving, need to reevaluate possible surgical intervention with [facility]? hypokalemia Continue to monitor and replace as needed Elevated liver function tests Hepatitis panel negative Continue to monitor Type II diabetes mellitus Sliding scale insulin Hypertension Restless leg syndrome Hyperlipidemia Continue home meds Morbid obesity Clinically significant, no acute management needs DVT prophylaxis: Restarted Lovenox since no procedure is planned Diagnosis/Problems Diagnosis/Problems (1) Acute osteomyelitis of spine Status: Acute (2) Abnormal serum protein electrophoresis (3) Weakness of both lower extremities Status: Acute (4) Acute respiratory failure with hypoxia Status: Acute (5) T2DM (type 2 diabetes mellitus) Status: Chronic Qualifiers: Diabetes mellitus handle attacher insulin use: without handle attacher use (6) Paresthesia of both legs Status: Acute (7) RLS (restless legs syndrome) Status: Chronic (8) Elevated liver function tests Status: Acute (9) HLD (hyperlipidemia) Status: Chronic (10) HTN (hypertension) Status: Chronic Qualifiers: Hypertension type: essential hypertension Qualified Codes: I10 - Essential (primary) hypertension (11) Morbid obesity Status: Chronic (12) Hypoxia Status: Acute (13) Depression Status: Acute (14) Chronic pain Status: Acute Clinical Quality Measures DVT/VTE Risk/Contraindication: Risk Factor Score Per Nursin RFS Level Per Nursing on Admit: 4+=Very High KATELYN JENSEN DO Feb 24, 2020 09:42
--- NOTE | 2020-02-24 09:42 | Physical Therapy Daily Note ---
PT Daily Note-Current Subjective Pt agreeable. Pt unable to move LE, unable to squeeze glutes. Pain in mid back 6/10 upon arrival and 8/10 post therapy session. Mental Status Patient Orientation: Person, Place Attachments: White Catheter Transfers SCALE: Activities may be completed with or without assistive devices. 8-Yllyqpiwni-qrleoyq completes the activity by him/herself with no assistance from a helper. 5-Set-up or Clean-up Assistance-helper sets up or cleans up; patient completes activity. [place] assists only prior to or following the activity. 4-Supervision or Touching Assistance-helper provides verbal cues and/or touching/steadying and/or contact guard assistance as patient completes activity. Assistance may be provided throughout the activity or intermittently. 3-Partial/Moderate Assistance-helper does LESS THAN HALF the effort. [place] lifts, holds or supports trunk or limbs, but provides less than half the effort. 2-Substantial/Maximal Assistance-helper does MORE THAN HALF the effort. [place] lifts or holds trunk or limbs and provides more than half the effort. 4-Laxxnbgez-mvhalb does ALL the effort. Patient does none of the effort to complete the activity. Or, the assistance of 2 or more helpers is required for the patient to complete the activity. If activity was not attempted, code reason: 7-Patient Refused. 9-Not Applicable-not attempted and the patient did not perform the activity before the current illness, exacerbation or injury. 10-Not Attempted due to Environmental Limitations-(lack of equipment, weather restraints, etc.). 88-Not Attempted due to Medical Conditions or Safety Concerns. Treatments Pt seen for LE PROM in bed and transfer bed->recliner via sugar lift. (B) LE ankle PROM all planes, knee flexion in very shortened range, hip IR/ER and hip abd/add x 20 each. Sugar transfer bed to recliner. Sugar lift under pt for later return to bed. Pt resting with legs elevated and floating on pillows, call light in lap and all needs met. Assessment Current Status: Poor Progress Pt jamal treatment fair. Dependent mobility. Strength 0/10 (B) LE's. Pain increased in mid back with movement per pt. Pt resting comfortably post treatment with all needs met. PT Short Term Goals Short Term Goals Time Frame: Feb 29, 2020 Roll Left & Right: 3 Sit to lyin Lying to sitting on side of be: 3 Sit to stand: 2 Chair/xrw-vx-cimwo transfer: 2 Toilet transfer: 2 PT Cupola Mechanic Goals Cupola Mechanic Goals PT Cupola Mechanic Goals Time Frame: Mar 07, 2020 Roll Left & Right (QC): 4 Sit to Lying (QC): 4 Lying-Sitting on Side/Bed(QC): 4 Sit to Stand (QC): 4 Chair/Pml-it-Lnypx Xfer(QC): 4 Toilet Transfer (QC): 4 PT Plan Treatment/Plan Treatment Plan: Continue Plan of Care Treatment Plan: Bed Mobility, Functional Activity Regulo, Functional Strength, Gait, Therapeutic Exercise, Transfers Treatment Duration: Mar 07, 2020 Frequency: 6 times per week Estimated Hrs Per Day: .5 hour per day Patient and/or Family Agrees t: Yes Time/GCodes Time In: 835 Time Out: 900 Total Billed Treatment Time: 25 Total Billed Treatment 1, Ther ex 10', FA 15' LEONARDO FENG [facility] INSTITUTEJeanie Feb 24, 2020 09:42
[2020-02-24] MEDS ORDERED: RT-ALBUTEROL HFA (PROAIR HFA) 8.5 GM IH SCH (10:00)
[2020-02-24] MEDS: RT-ALBUTEROL HFA (PROAIR HFA) 8.5 GM IH PRN ×2 (10:46→14:20)
[2020-02-24 11:14] VITALS: BP 135/77
--- NOTE | 2020-02-24 11:45 | NUR ---
pastoral care visit.
--- NOTE | 2020-02-24 11:52 | Occupational Ther Daily Note ---
OT Current Status-Daily Note Subjective Pt alert, sitting in recliner. Pt agrees to therapy. No c/o pain. Mental Status/Objective Patient Orientation: Person, Place, Time, Situation ADL-Treatment Pt agrees to sponge bath. After set up, pt able to reach chest, arms, upper abdomen and assist for under pannis. Nrsg to complete jonny area and buttocks when pt is in bed. Pt is dependent for lower body bathing. Pt able to thread UE out/in of hospital gown. Using clinical judgement, pt is dependent with lower body dressing. Pt used shower cap to wash hair. After therapy, pt reclined in chair with call light/phone in reach. All needs met in room. Therapy Code Descriptions/Definitions Functional [place] Measure: 0=Not Assessed/NA 4=Minimal Assistance 1=Total Assistance 5=Supervision or Setup 2=Maximal Assistance 6=Modified [place] 3=Moderate Assistance 7=Complete IndependenceSCALE: Activities may be completed with or without assistive devices. 0-Ydjbuszcrj-xdfaxkn completes the activity by him/herself with no assistance from a helper. 5-Set-up or Clean-up Assistance-helper sets up or cleans up; patient completes activity. [place] assists only prior to or following the activity. 4-Supervision or Touching Assistance-helper provides verbal cues and/or touching/steadying and/or contact guard assistance as patient completes activity. Assistance may be provided throughout the activity or intermittently. 3-Partial/Moderate Assistance-helper does LESS THAN HALF the effort. [place] lifts, holds or supports trunk or limbs, but provides less than half the effort. 2-Substantial/Maximal Assistance-helper does MORE THAN HALF the effort. [place] lifts or holds trunk or limbs and provides more than half the effort. 7-Hmccmslph-fuazzo does ALL the effort. Patient does none of the effort to complete the activity. Or, the assistance of 2 or more helpers is required for the patient to complete the activity. If activity was not attempted, code reason: 7-Patient Refused. 9-Not Applicable-not attempted and the patient did not perform the activity before the current illness, exacerbation or injury. 10-Not Attempted due to Environmental Limitations-(lack of equipment, weather restraints, etc.). 88-Not Attempted due to Medical Conditions or Safety Concerns. Bathing Location: L Arm, R Arm, Chest Shower/Bathe Self (QC): 1 Upper Body Dressing (QC): 3 Lower Body Dressing (QC): 1 On/Off Footwear: 1 OT English Adjunct Faculty Goals English Adjunct Faculty Goals Time Frame: Feb 29, 2020 Eating (QC): 6 Oral Hygiene (QC): 6 Shower/Bathe Self (QC): 3 Upper Body Dressing (QC): 5 Additional Goals: 1-Demonstrate ADL Tasks, 2-Verbalize Understanding, 3- ImproveStrength/Regulo 1=Demonstrate adherence to instructed precautions during ADL tasks. 2=Patient will verbalize/demonstrate understanding of assistive devices/modifications for ADL. 3=Patient will improve strength/tolerance for activity to enable patient to perform ADL's. OT Education/Plan Problem List/Assessment Assessment: Decreased Activ Tolerance, Decreased UE Strength, Dependent Transfers, Edema, Impaired Bed Mobility, Impaired Coordination, Impaired Funct Balance, Impaired I ADL's, Impaired Self-Care Skills Discharge Recommendations Plan/Recommendations: Continue POC Treatment Plan/Plan of Care Patient would benefit from OT for education, treatment and training to promote independence in ADL's, mobility, safety and/or upper extremity function for ADL's. Plan of Care: ADL Retraining, Functional Mobility, UE Funct Exercise/Act Treatment Duration: Feb 29, 2020 Frequency: 5 times per week Estimated Hrs Per Day: .25 hour per day Rehab Potential: Poor Time/GCodes Start Time: 11:15 Stop Time: 11:45 Total Time Billed (hr/min): 30 Billed Treatment Time 1 visit-ADL 2 (30 min) BECKY SHANE Feb 24, 2020 11:52
[2020-02-24 12:00] VITALS: BP 147/71
[2020-02-24] MEDS ORDERED: RT-ALBUTEROL HFA (PROAIR HFA) 8.5 GM IH PRN (12:00)
--- NOTE | 2020-02-24 13:20 | NUR ---
CM/SS: Referral sent to [facility] - Appointment /Consultation Request form submitted with medical records attached. Faxed to [phone]. Plan: Undetermined at this time. Possible transfer to [facility] or to [facility].
--- NOTE | 2020-02-24 14:49 | NUR ---
CM/SS: [facility] has denied the pt for admission; indicating that pt was not as cooperative when at [facility], and is limited due to her non weight bearing status. This worker requested that additional records be faxed for re-consideration. They agreed to review for re-consideration.
[2020-02-24 14:50] LABS: IMMUNOFIX PATH REPORT NUMBER Complete (Complete)
[2020-02-24 16:28] VITALS: BP 119/62
[2020-02-24] MEDS: RT-ALBUTEROL HFA (PROAIR HFA) 8.5 GM IH SCH (19:58)
[2020-02-24 20:02] VITALS: BP 133/83
[2020-02-24] MEDS ORDERED: LEVOFLOXACIN 750 MG/150 ML IV 150 ML IV ONE (20:53)
[2020-02-24] MEDS: LEVOFLOXACIN 750 MG/D5W 150 ML PRE-MIX IV SCH (21:15)
[2020-02-24] MEDS: rOPINIRole 1 MG (REQUIP) TABLET PO SCH (21:15)
[2020-02-25 00:21] VITALS: BP 124/77
[2020-02-25] MEDS: RT-ALBUTEROL HFA (PROAIR HFA) 8.5 GM IH SCH ×5 (01:39→09:56)
[2020-02-25 04:00] VITALS: BP 124/77
[2020-02-25] MEDS: FUROSEMIDE 40 MG/4 ML INJ (LASIX) IVP SCH (05:49)
[2020-02-25] MEDS: CATHETER FLUSH 10 ML SYR IV SCH (05:51)
[2020-02-25] MEDS: inSUlin ASPART (NovoLOG) 1 UNIT/0.01 ML (CHARGE PER UNIT) SC SCH ×2 (05:53→11:58)
[2020-02-25] MEDS: RT-ALBUTEROL HFA (PROAIR HFA) 8.5 GM IH PRN (05:55)
--- NOTE | 2020-02-25 07:57 | NUR ---
CM/SS: Phone call received 7:50am - After reconsideration, [facility] has denied pt for Admission.
[2020-02-25 08:00] VITALS: BP 110/67
[2020-02-25] MEDS: ARTIFICAL TEARS 0.4 ML UNIT DOSE (REFRESH PLUS) OU SCH ×2 (08:48→13:13)
[2020-02-25] MEDS: SENNOSIDES 8.6 MG (SENOKOT) TAB PO SCH (08:49)
[2020-02-25] MEDS: toPIRamate 25 MG (TOPAMAX) TAB PO SCH (08:49)
[2020-02-25] MEDS: ZONISAMIDE 100 MG CAP (ZONEGRAN) NON-FORMULARY PO SCH (08:49)
[2020-02-25] MEDS: VENlafaxine 75 MG (EFFEXOR) TAB PO SCH ×2 (08:49→13:13)
[2020-02-25] MEDS: meTOprolol TARTRATE 25 MG (LOPRESSOR) TABLET PO SCH (08:49)
[2020-02-25] MEDS: GABAPENTIN 300 MG (NEURONTIN) CAP PO SCH ×2 (08:49→13:13)
[2020-02-25] MEDS: DOCUSATE SODIUM 100 MG (COLACE) CAP PO SCH (08:50)
[2020-02-25] MEDS: methylPREDNISolone 40 MG/ML (Solu-MEDROL) VIAL IV SCH (08:51)
[2020-02-25] MEDS: ENOXAPARIN 60 MG/0.6 ML (LOVENOX) SYR SC SCH (08:51)
[2020-02-25 10:11] LABS: BASOPHILS % (AUTO) 0 % (0-10); EOSINOPHILS # (AUTO) 0.1 10^3/uL (0.0-0.3); EOSINOPHILS % (AUTO) 1 % (0-10); HEMATOCRIT 43 % (35-52); HEMOGLOBIN 13.2 G/DL (11.5-16.0); LYMPHOCYTES # (AUTO) 1.7 X 10^3 (1.0-4.0); LYMPHOCYTES % (AUTO) 14 % (12-44); MEAN CORPUSCULAR HEMOGLOBIN 30 PG (25-34); MEAN CORPUSCULAR HGB CONC 31 G/DL (32-36); MEAN CORPUSCULAR VOLUME 95 FL (80-99); MEAN PLATELET VOLUME 10.5 FL (7.4-10.4); MONOCYTES # (AUTO) 0.4 X 10^3 (0.0-1.0); MONOCYTES % (AUTO) 4 % (0-12); NEUTROPHILS # (AUTO) 9.5 X 10^3 (1.8-7.8); NEUTROPHILS % (AUTO) 81 % (42-75); PLATELET COUNT 388 10^3/uL (130-400); RED CELL DISTRIBUTION WIDTH 15.3 % (10.0-14.5); WHITE BLOOD COUNT 11.7 10^3/uL (4.3-11.0)
[2020-02-25 10:30] LABS: ALANINE AMINOTRANSFERASE 157 U/L (0-55); ALBUMIN 3.1 GM/DL (3.2-4.5); ALKALINE PHOSPHATASE 252 U/L (40-136); BILIRUBIN,TOTAL 0.4 MG/DL (0.1-1.0); BUN/CREATININE RATIO 46; CARBON DIOXIDE 38 MMOL/L (21-32); CHLORIDE 89 MMOL/L (98-107); GFR ESTIMATED > 60; GLUCOSE 316 MG/DL (70-105); POTASSIUM 3.2 MMOL/L (3.6-5.0); SODIUM 137 MMOL/L (135-145); TOTAL PROTEIN 8.1 GM/DL (6.4-8.2)
--- NOTE | 2020-02-25 11:12 | Occupational Ther Daily Note ---
OT Current Status-Daily Note Subjective Pt laying in bed at start of session, agreeable to OT/PT cotreat. She reports 5/10 pain in her back. ADL-Treatment Therapy Code Descriptions/Definitions Functional [place] Measure: 0=Not Assessed/NA 4=Minimal Assistance 1=Total Assistance 5=Supervision or Setup 2=Maximal Assistance 6=Modified [place] 3=Moderate Assistance 7=Complete IndependenceSCALE: Activities may be completed with or without assistive devices. 3-Niovhnxizs-jqgiyvs completes the activity by him/herself with no assistance from a helper. 5-Set-up or Clean-up Assistance-helper sets up or cleans up; patient completes activity. [place] assists only prior to or following the activity. 4-Supervision or Touching Assistance-helper provides verbal cues and/or touching/steadying and/or contact guard assistance as patient completes activity. Assistance may be provided throughout the activity or intermittently. 3-Partial/Moderate Assistance-helper does LESS THAN HALF the effort. [place] lifts, holds or supports trunk or limbs, but provides less than half the effort. 2-Substantial/Maximal Assistance-helper does MORE THAN HALF the effort. [place] lifts or holds trunk or limbs and provides more than half the effort. 9-Qhegujgzn-ougzyh does ALL the effort. Patient does none of the effort to complete the activity. Or, the assistance of 2 or more helpers is required for the patient to complete the activity. If activity was not attempted, code reason: 7-Patient Refused. 9-Not Applicable-not attempted and the patient did not perform the activity before the current illness, exacerbation or injury. 10-Not Attempted due to Environmental Limitations-(lack of equipment, weather restraints, etc.). 88-Not Attempted due to Medical Conditions or Safety Concerns. Other Treatment OT/PT cotreat due to increased medical complexity, paraplegia, decreased strength and endurance requiring the skill of 2 disciplines which a rehab consultant could not perform. OT focused on UE placement, cues/sequencing for safety, and sling placement while PT focused on LE placement and overall gross movements. Pt performed BUE exercises at bed level in order to increase strength and functional endurance. Pt able to complete x20 reps of each of the following: shoulder flexion, elbow flexion/extension, and finger flexion. Pt recalled 2 of 3 exercises from previous OT session. Pt performed UE exercises as PT focused on LEs. Pt then rolled side to side in bed for laura sling placement. Pt transferred to recliner using laura ceiling lift. Sling left under pt in order for pt to transfer back to bed later. Post OT session, pt sitting in recliner, call light in reach and all needs met. Education OT Patient Education: Correct positioning, Energy conservation, Exercise program, Progress toward Goal/Update tx plan, Purpose of tx/functional activities, Transfer techniques Teaching Recipient: Patient Teaching Methods: Demonstration, Discussion Response to Teaching: Verbalize Understanding, Return Demonstration OT Operational Meteorologist Goals [facility] Goals Time Frame: Feb 29, 2020 Eating (QC): 6 Oral Hygiene (QC): 6 Shower/Bathe Self (QC): 3 Upper Body Dressing (QC): 5 Additional Goals: 1-Demonstrate ADL Tasks, 2-Verbalize Understanding, 3- ImproveStrength/Regulo 1=Demonstrate adherence to instructed precautions during ADL tasks. 2=Patient will verbalize/demonstrate understanding of assistive devices/modifi cations for ADL. 3=Patient will improve strength/tolerance for activity to enable patient to perform ADL's. OT Education/Plan Problem List/Assessment Assessment: Decreased Activ Tolerance, Decreased UE Strength, Dependent Transfers, Impaired Bed Mobility, Impaired Funct Balance, Impaired I ADL's, Impaired Self-Care Skills Discharge Recommendations Plan/Recommendations: Continue POC Treatment Plan/Plan of Care Patient would benefit from OT for education, treatment and training to promote independence in ADL's, mobility, safety and/or upper extremity function for ADL's. Plan of Care: ADL Retraining, Functional Mobility, UE Funct Exercise/Act Treatment Duration: Feb 29, 2020 Frequency: 5 times per week Estimated Hrs Per Day: .25 hour per day Rehab Potential: Poor Time/GCodes Start Time: 10:43 Stop Time: 11:03 Total Time Billed (hr/min): 20 Billed Treatment Time OT/PT cotreat x20 mins 1, FA (20') WOLF EPPERSON OT Feb 25, 2020 11:12
--- NOTE | 2020-02-25 11:29 | Physical Therapy Daily Note ---
PT Daily Note-Current Subjective Pt agreeable. Pain rated 5/10 in mid back. Pt states "I did not want to take a pain medicine in case they sent me to [facility]." Pt states "I feel tingling, just light tingle in my leg" pt referring to (R) LE. Pt unable to voluntarily move LE or squeeze glutes. Pt can contract abdominal muscles per pt. Mental Status Patient Orientation: Person, Place Transfers SCALE: Activities may be completed with or without assistive devices. 7-Wjsqbpuqct-jwsshsq completes the activity by him/herself with no assistance from a helper. 5-Set-up or Clean-up Assistance-helper sets up or cleans up; patient completes activity. [place] assists only prior to or following the activity. 4-Supervision or Touching Assistance-helper provides verbal cues and/or touching/steadying and/or contact guard assistance as patient completes activity. Assistance may be provided throughout the activity or intermittently. 3-Partial/Moderate Assistance-helper does LESS THAN HALF the effort. [place] lifts, holds or supports trunk or limbs, but provides less than half the effort. 2-Substantial/Maximal Assistance-helper does MORE THAN HALF the effort. [place] lifts or holds trunk or limbs and provides more than half the effort. 8-Tzddctrci-lahobz does ALL the effort. Patient does none of the effort to complete the activity. Or, the assistance of 2 or more helpers is required for the patient to complete the activity. If activity was not attempted, code reason: 7-Patient Refused. 9-Not Applicable-not attempted and the patient did not perform the activity before the current illness, exacerbation or injury. 10-Not Attempted due to Environmental Limitations-(lack of equipment, weather restraints, etc.). 88-Not Attempted due to Medical Conditions or Safety Concerns. Treatments Co-Treatment with OT due to need for 2 skilled clinicians due to paraplegia and dependent mobility. Pt seen for PROM (B) ankles, knees and hips: AP, ankle circles, IR/ER of hips, Knee flexion/ext in short range x 20 each Max A of 2 for rolling side to side, placement of sling. Sugar lift bed to recliner with pt legs positioned floating on pillows. Assessment Current Status: Poor Progress No change other than pt noting she does feel tingling in (R) LE. (B) LE st rength 0/5. Dependent for all mobility. Pt resting comfortably, call light in reach and all needs met. PT Short Term Goals Short Term Goals Time Frame: Feb 29, 2020 Roll Left & Right: 3 Sit to lyin Lying to sitting on side of be: 3 Sit to stand: 2 Chair/eqk-sb-jbnjk transfer: 2 Toilet transfer: 2 PT Biblical Languages Professor Goals Prison Goals PT Prison Goals Time Frame: Mar 07, 2020 Roll Left & Right (QC): 4 Sit to Lying (QC): 4 Lying-Sitting on Side/Bed(QC): 4 Sit to Stand (QC): 4 Chair/Wfh-by-Vhnbv Xfer(QC): 4 Toilet Transfer (QC): 4 PT Plan Treatment/Plan Treatment Plan: Continue Plan of Care Treatment Plan: Bed Mobility, Functional Activity Regulo, Functional Strength, Gait, Therapeutic Exercise, Transfers Treatment Duration: Mar 07, 2020 Frequency: 6 times per week Estimated Hrs Per Day: .5 hour per day Patient and/or Family Agrees t: Yes Time/GCodes Time In: 1043 Time Out: 1103 Total Billed Treatment Time: 20 Total Billed Treatment 1, FA 15', ther ex 5', Co-Rx 15', Individual 5' LEONARDO FENG CPTA Feb 25, 2020 11:29
--- NOTE | 2020-02-25 11:47 | Progress Note - Hospitalist ---
Subjective HPI/CC On Admission Date Seen by Provider: Feb 25, 2020 Time Seen by Provider: 10:00 Karen Ely is a 54-year-old female with past medical history of hypertension, diabetes, restless leg syndrome, hyperlipidemia, morbid obesity, who presented her longterm with shortness of breath. She reports that she has been fee ling short of breath for the past couple of days. Prior to that about a week ago she developed paresthesias and weakness of her bilateral lower extremities. She reports that a week ago she is able to walk on her own but now is unable to move her legs. She reports lower back pain with sciatica down her left leg. She denies fevers and chills. She reports a dry cough. She denies any bowel incontinence. She has chronic urinary incontinence which is unchanged. She denies any chest pain. Objective Exam Vital Signs Vital Signs Date Time Temp Pulse Resp B/P (MAP) Pulse Ox O2 Delivery O2 Flow Rate FiO2 02/25/20 09:53 93 High Flow N/C 3.00 02/25/20 08:00 36.8 75 20 110/67 (81) 02/24/20 11:14 32 Capillary Refill : Less Than 3 SecondsLess Than 3 Seconds Results/Procedures Lab Laboratory Tests 02/25/20 10:05 Patient resulted labs reviewed. Assessment/Plan Assessment and Plan Assess & Plan/Chief Complaint Assessment per Dr Frost with my modifications: Acute osteomyelitis of the spine versus destruction from MM?? Conferring with Oncology Dr Saenz CT revealed severe destruction at T9T10 discussed with [facility] for possible transfer for neurosurgical evaluation but this was declined due to her respiratory status- awaiting wean of Vapotherm to even be a candidate for transfer now reaching out again since off Vapotherm and dec reasing steroids blood cultures obtained, no growth to date Echo revealed no vegetations, some valves poorly visualized Acute respiratory failure with hypoxia Loculated pleural effusions continue Vapotherm, wean as able to keep saturations greater than 90 percent- now weaned CT revealed bilateral loculated pleural effusions Flu negative Covid negative Procalcitonin elevated continue Levaquin surgery consulted, attempted thoracentesis but could not find a good pocket need to discuss tomorrow possible CT-guided thoracentesis and possible biopsy to identify infectious source of osteomyelitis Continue diuresis if respiratory status improving, need to reevaluate possible surgical int ervention with [facility]? hypokalemia Continue to monitor and replace as needed Elevated liver function tests Hepatitis panel negative Continue to monitor Type II diabetes mellitus Sliding scale insulin Hypertension Restless leg syndrome Hyperlipidemia Continue home meds Morbid obesity Clinically significant, no acute management needs DVT prophylaxis: Restarted Lovenox since no procedure is planned Diagnosis/Problems Diagnosis/Problems (1) Acute osteomyelitis of spine Status: Acute (2) Abnormal serum protein electrophoresis (3) Weakness of both lower extremities Status: Acute (4) Acute respiratory failure with hypoxia Status: Acute (5) T2DM (type 2 diabetes mellitus) Status: Chronic Qualifiers: Diabetes mellitus residential insulin use: without ad terminal makeup operator use (6) Paresthesia of both legs Status: Acute (7) RLS (restless legs syndrome) Status: Chronic (8) Elevated liver function tests Status: Acute (9) HLD (hyperlipidemia) Status: Chronic (10) HTN (hypertension) Status: Chronic Qualifiers: Hypertension type: essential hypertension Qualified Codes: I10 - Essential (primary) hypertension (11) Morbid obesity Status: Chronic (12) Hypoxia Status: Acute (13) Depression Status: Acute (14) Chronic pain Status: Acute Clinical Quality Measures DVT/VTE Risk/Contraindication: Risk Factor Score Per Nursin RFS Level Per Nursing on Admit: 4+=Very High KATELYN JENSEN DO Feb 25, 2020 11:47
--- NOTE | 2020-02-25 12:33 | Discharge Summary ---
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 Conferring with Oncology Dr Saenz CT revealed severe destruction at T9T10 discussed with [facility] for possible transfer for neurosurgical evaluation but this was declined due to her respiratory status- awaiting wean of Vapotherm to even be a candidate for transfer now reaching out again since off Vapotherm and decreasing steroids blood cultures obtained, no growth to date Echo revealed no vegetations, some valves poorly visualized Acute respiratory failure with hypoxia Loculated pleural effusions continue Vapotherm, wean as able to keep saturations greater than 90 percent- now weaned CT revealed bilateral loculated pleural effusions Flu negative Covid negative Procalcitonin elevated continue Levaquin surgery consulted, attempted thoracentesis but could not find a good pocket need to discuss tomorrow possible CT-guided thoracentesis and possible biopsy to identify infectious source of osteomyelitis Continue diuresis if respiratory status improving, need to reevaluate possible surgical intervention with [facility]? hypokalemia Continue to monitor and replace as needed Elevated liver function tests Hepatitis panel negative Continue to monitor Type II diabetes mellitus Sliding scale insulin Hypertension Restless leg syndrome Hyperlipidemia Continue home meds Morbid obesity Clinically significant, no acute management needs DVT prophylaxis: Restarted Lovenox since no procedure is planned Discharge Summary Discharge Physical Examination Allergies: Coded Allergies: adhesive tape (Unverified Allergy, Unknown, 01/16/20) Vitals & I&Os Vital Signs Date Time Temp Pulse Resp B/P (MAP) Pulse Ox O2 Delivery O2 Flow Rate FiO2 02/25/20 13:20 02/25/20 09:53 93 High Flow N/C 3.00 02/25/20 08:00 36.8 75 20 02/24/20 11:14 32 General Appearance: Alert, Oriented X3, Cooperative Respiratory: Clear to Auscultation Cardiovascular: Regular Rate Neuro: Normal Speech, Other (legs with no purposeful movement) Hospital Course Was the Problem List Reviewed?: Yes Hospital course: patient had a lengthy course after she was admitted for paralysis of legs and back pain and respiratory insufficiency. 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 Further characterization with contrast-assisted thoracic spinal MRI recommended as further evaluation. Sequelae of neoplasm less likely but cannot be absolutely excluded). Levaquin initiated but BCx were all negative. Lovenox maintained for DVt PPx. Vapotherm required with IV steroids and eventually she was weaned off Vapotherm after IV diuresis successful for volume overload. Multiple physicians were updated along with Chris Garcia, Alan, Chance, Dany along with 4 multiple attempts to [facility] for transfer which upon review of clouded images Dr Gomez BROWN stated after 1 week of abx there is no possibility of surgical options that would benefit the patient and if MRI could be obtained in the future some sort of re-consultation could be entertained but also the pandemic fo COVID-19 was also relevant in limitations of transfer and considering she could not be transferred to due to severe respiratory failure. Patient was assessed to be a candidate for IRF even if it was only for wheelchair mobility and family expressed intentions to help when she returned home and she was moved to IRF for structured rehab protocol. Patient remains with romero cath and has fecal incontinence. Labs (last 24 hrs) Laboratory Tests 02/17/20 19:15: White Blood Count 15.2H, Red Blood Count 3.77L, Hemoglobin 11.4L, Hematocrit 36, Mean Corpuscular Volume 96, Mean Corpuscular Hemoglobin 30, Mean Corpuscular Hemoglobin Concent 32, Red Cell Distribution Width 15.0H, Platelet Count 308, Mean Platelet Volume 10.1, Neutrophils (%) (Auto) 83H, Lymphocytes (%) (Auto) 8L , Monocytes (%) (Auto) 7, Eosinophils (%) (Auto) 1, Basophils (%) (Auto) 0, Neutrophils # (Auto) 12.5H, Lymphocytes # (Auto) 1.2, Monocytes # (Auto) 1.1H, Eosinophils # (Auto) 0.2, Basophils # (Auto) 0.0, Neutrophils % (Manual) 87, Lymphocytes % (Manual) 7, Monocytes % (Manual) 2, Eosinophils % (Manual) 2, Basophils % (Manual) 0, Band Neutrophils 2, D-Dimer 6.06H, Sodium Level 141, Potassium Level 4.4, Chloride Level 97L, Carbon Dioxide Level 29, Anion Gap 15H, Blood Urea Nitrogen 44H, Creatinine 1.24, Estimat Glomerular Filtration Rate 45, BUN/Creatinine Ratio 35, Glucose Level 162H, Calcium Level 9.0, Corrected Calcium 10.2H, Total Bilirubin 0.6, Aspartate Amino Transf (AST/SGOT) 125H, Alanine Aminotransferase (ALT/SGPT) 105H, Alkaline Phosphatase 327H, Troponin I < 0.30, Pro-B-Type Natriuretic Peptide 229.5H, Total Protein 8.3H, Albumin 2.5L 02/17/20 21:20: Group A Streptococcus Screen NEGATIVE 02/18/20 04:20: White Blood Count 15.1H, Red Blood Count 3.88L, Hemoglobin 11.6, Hematocrit 37, Mean Corpuscular Volume 95, Mean Corpuscular Hemoglobin 30, Mean Corpuscular Hemoglobin Concent 32, Red Cell Distribution Width 15.5H, Platelet Count 283, Mean Platelet Volume 10.0, Neutrophils (%) (Auto) 93H, Lymphocytes (%) (Auto) 3L , Monocytes (%) (Auto) 4, Eosinophils (%) (Auto) 0, Basophils (%) (Auto) 0, Neutrophils # (Auto) 14.1H, Lymphocytes # (Auto) 0.5L, Monocytes # (Auto) 0.5, Eosinophils # (Auto) 0.0, Basophils # (Auto) 0.0, Sodium Level 139, Potassium Level 4.3, Chloride Level 99, Carbon Dioxide Level 26, Anion Gap 14, Blood Urea Nitrogen 43H, Creatinine 1.09, Estimat Glomerular Filtration Rate 52, BUN/Creatinine Ratio 39, Glucose Level 217H, Calcium Level 8.7, Corrected Calcium 9.6, Total Bilirubin 0.6, Aspartate Amino Transf (AST/SGOT) 117H, Alanine Aminotransferase (ALT/SGPT) 108H, Alkaline Phosphatase 322H, Total Protein 8.3H, Albumin 2.9L, Mean Blood Glucose 146H, Hemoglobin A1c 6.7H, Procalcitonin 0.36H 02/18/20 12:15: Hepatitis A IgM Antibody Non-Reactive, Hepatitis B Surface Antigen Non-Reactive, Hepatitis B Core IgM Antibody Non-Reactive, Hepatitis C Antibody Non-Reactive 02/18/20 16:43: Glucometer 303H 02/18/20 19:50: Glucometer 328H 02/19/20 04:00: White Blood Count 14.4H, Red Blood Count 3.58L, Hemoglobin 10.7L, Hematocrit 34L , Mean Corpuscular Volume 96, Mean Corpuscular Hemoglobin 30, Mean Corpuscular H emoglobin Concent 31L, Red Cell Distribution Width 15.4H, Platelet Count 280, Mean Platelet Volume 9.9, Neutrophils (%) (Auto) 89H, Lymphocytes (%) (Auto) 4L, Monocytes (%) (Auto) 6, Eosinophils (%) (Auto) 0, Basophils (%) (Auto) 0, Neutrophils # (Auto) 12.8H, Lymphocytes # (Auto) 0.6L, Monocytes # (Auto) 0.9, Eosinophils # (Auto) 0.0, Basophils # (Auto) 0.0, Erythrocyte Sedimentation Rate > 140H, Sodium Level 145, Potassium Level 3.8, Chloride Level 98, Carbon Dioxide Level 33H, Anion Gap 14, Blood Urea Nitrogen 37H, Creatinine 0.91, Estimat Glomerular Filtration Rate > 60, BUN/Creatinine Ratio 41, Glucose Level 222H, Calcium Level 9.1, Corrected Calcium 10.1, Total Bilirubin 0.3, Aspartate Amino Transf (AST/SGOT) 254H, Alanine Aminotransferase (ALT/SGPT) 172H, Alkaline Phosphatase 301H, Lactate Dehydrogenase 423H, Total Creatine Kinase 134, C-R eactive Protein High Sensitivity 25.96H, Total Protein 7.9, Albumin 2.8L, Procalcitonin 0.26H 02/19/20 12:33: Glucometer 291H 02/19/20 12:39: Total Protein (PEP) 7.2, Protein Electrophoresis Pathologist SEE PATH REPORT, Immunofixation Pathologist Complete, Free Sebastian Light Chains, Quant 72.74H, Free Lambda Light Chains, Quant 57.79H, Free Sebastian/Lambda Light Chain Ratio 1.26 02/19/20 16:03: Glucometer 276H 02/19/20 20:34: Glucometer 322H 02/20/20 05:07: Glucometer 215H 02/20/20 08:10: Sodium Level 142, Potassium Level 3.5L, Chloride Level 94L, Carbon Dioxide Level 35H, Anion Gap 13, Blood Urea Nitrogen 37H, Creatinine 0.84, Estimat Glomerular Filtration Rate > 60, BUN/Creatinine Ratio 44, Glucose Level 239H, Calcium Level 8.8, Magnesium Level 2.1 02/20/20 11:05: Glucometer 209H 02/20/20 15:19: Glucometer 250H 02/20/20 20:01: Glucometer 319H 02/21/20 04:50: White Blood Count 8.7, Red Blood Count 3.79L, Hemoglobin 11.2L, Hematocrit 37, Mean Corpuscular Volume 96, Mean Corpuscular Hemoglobin 30, Mean Corpuscular Hemoglobin Concent 31L, Red Cell Distribution Width 15.4H, Platelet Count 305, Mean Platelet Volume 10.3, Neutrophils (%) (Auto) 84H, Lymphocytes (%) (Auto) 10L, Monocytes (%) (Auto) 6, Eosinophils (%) (Auto) 0, Basophils (%) (Auto) 0, Neutrophils # (Auto) 7.3, Lymphocytes # (Auto) 0.9L, Monocytes # (Auto) 0.5, Eosinophils # (Auto) 0.0, Basophils # (Auto) 0.0, Sodium Level 141, Potassium Level 3.7, Chloride Level 95L, Carbon Dioxide Level 34H, Anion Gap 12, Blood Urea Nitrogen 34H, Creatinine 0.79, Estimat Glomerular Filtration Rate > 60, BUN/Creatinine Ratio 43, Glucose Level 320H, Calcium Level 9.0, Corrected Calcium 10.0, Total Bilirubin 0.3, Aspartate Amino Transf (AST/SGOT) 249H, Alanine Aminotransferase (ALT/SGPT) 261H, Alkaline Phosphatase 296H, Total Protein 7.8, Albumin 2.8L 02/21/20 05:58: Glucometer 328H 02/21/20 10:54: Glucometer 379H 02/21/20 15:33: Glucometer 381H 02/21/20 20:09: Glucometer 354H 02/22/20 05:29: Glucometer 339H 02/22/20 06:05: White Blood Count 11.7H, Red Blood Count 3.87L, Hemoglobin 11.4L, Hematocrit 37, Mean Corpuscular Volume 96, Mean Corpuscular Hemoglobin 30, Mean Corpuscular Hemoglobin Concent 31L, Red Cell Distribution Width 15.6H, Platelet Count 335, Mean Platelet Volume 10.6H, Neutrophils (%) (Auto) 87H, Lymphocytes (%) (Auto) 9L, Monocytes (%) (Auto) 5, Eosinophils (%) (Auto) 0, Basophils (%) (Auto) 0, Neutrophils # (Auto) 10.2H, Lymphocytes # (Auto) 1.0, Monocytes # (Auto) 0.6, Eosinophils # (Auto) 0.0, Basophils # (Auto) 0.0 02/22/20 06:25: Sodium Level 139, Potassium Level 3.8, Chloride Level 96L, Carbon Dioxide Level 31, Anion Gap 12, Blood Urea Nitrogen 36H, Creatinine 0.78, Estimat Glomerular Filtration Rate > 60, BUN/Creatinine Ratio 46, Glucose Level 335H, Calcium Level 9.2, Corrected Calcium 10.1, Total Bilirubin 0.4, Aspartate Amino Transf (AST/SGOT) 177H, Alanine Aminotransferase (ALT/SGPT) 274H, Alkaline Phosphatase 279H, Total Protein 8.3H, Albumin 2.9L 02/22/20 11:07: Glucometer 364H 02/22/20 16:20: Glucometer 347H 02/22/20 19:27: Glucometer 352H 02/23/20 05:15: Glucometer 331H 02/23/20 10:36: Glucometer 443*H 02/23/20 15:49: Glucometer 417*H 02/23/20 20:45: Glucometer 296H 02/24/20 05:35: White Blood Count 13.5H, Red Blood Count 4.35, Hemoglobin 13.1, Hematocrit 41, Mean Corpuscular Volume 95, Mean Corpuscular Hemoglobin 30, Mean Corpuscular Hemoglobin Concent 32, Red Cell Distribution Width 15.2H, Platelet Count 372, Mean Platelet Volume 10.8H, Neutrophils (%) (Auto) 85H, Lymphocytes (%) (Auto) 11L, Monocytes (%) (Auto) 3, Eosinophils (%) (Auto) 0, Basophils (%) (Auto) 0, Neutrophils # (Auto) 11.5H, Lymphocytes # (Auto) 1.5, Monocytes # (Auto) 0.5, Eosinophils # (Auto) 0.0, Basophils # (Auto) 0.0, Sodium Level 138, Potassium Level 4.0, Chloride Level 94L, Carbon Dioxide Level 34H, Anion Gap 10, Blood Urea Nitrogen 42H, Creatinine 0.77, Estimat Glomerular Filtration Rate > 60, BUN/Creatinine Ratio 55, Glucose Level 262H, Calcium Level 9.0, Corrected Calcium 9.8, Total Bilirubin 0.4, Aspartate Amino Transf (AST/SGOT) 71H, Alanine Aminotransferase (ALT/SGPT) 203H, Alkaline Phosphatase 260H, Total Protein 8.1, Albumin 3.0L 02/24/20 05:55: Glucometer 278H 02/24/20 11:30: Glucometer 261H 02/24/20 17:24: Glucometer 336H 02/24/20 20:42: Glucometer 219H 02/25/20 05:33: Glucometer 201H 02/25/20 10:05: White Blood Count 11.7H, Red Blood Count 4.46, Hemoglobin 13.2, Hematocrit 43, Mean Corpuscular Volume 95, Mean Corpuscular Hemoglobin 30, Mean Corpuscular Hemoglobin Concent 31L, Red Cell Distribution Width 15.3H, Platelet Count 388, Mean Platelet Volume 10.5H, Neutrophils (%) (Auto) 81H, Lymphocytes (%) (Auto) 14, Monocytes (%) (Auto) 4, Eosinophils (%) (Auto) 1, Basophils (%) (Auto) 0, Neutrophils # (Auto) 9.5H, Lymphocytes # (Auto) 1.7, Monocytes # (Auto) 0.4, Eosinophils # (Auto) 0.1, Basophils # (Auto) 0.0, Sodium Level 137, Potassium Level 3.2L, Chloride Level 89L, Carbon Dioxide Level 38H, Anion Gap 10, Blood Urea Nitrogen 41H, Creatinine 0.90, Estimat Glomerular Filtration Rate > 60, BUN/Creatinine Ratio 46, Glucose Level 316H, Calcium Level 9.0, Corrected Calcium 9.7, Total Bilirubin 0.4, Aspartate Amino Transf (AST/SGOT) 49H, Alanine Aminotransferase (ALT/SGPT) 157H, Alkaline Phosphatase 252H, Total Protein 8.1, Albumin 3.1L 02/25/20 11:22: Glucometer 302H 02/25/20 16:21: Glucometer 236H Microbiology 02/18/20 Blood Culture - Preliminary, Resulted Staph, Coag Neg ([employer]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) 02/17/20 Throat Culture - Final, Complete Staphylococcus aureus Pending Labs Microbiology Date/Time Source Procedure Growth Status 02/18/20 17:15 Peripheral Lt Ac Blood Culture - Preliminary Staph, Coag Neg ([employer]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) Resulted 02/18/20 17:09 Peripheral Left Forearm Blood Culture - Final No growth Complete 02/18/20 17:02 Peripheral Rt Ac Blood Culture - Final No growth Complete 02/17/20 21:20 Throat Throat Culture - Final Staphylococcus aureus Complete 02/17/20 19:15 Nasal Aspirate Influenza Types A,B Antigen (JOSH) - Final Complete Laboratory Tests 02/17/20 19:15: White Blood Count 15.2, Red Blood Count 3.77, Hemoglobin 11.4, Hematocrit 36, Mean Corpuscular Volume 96, Mean Corpuscular Hemoglobin 30, Mean Corpuscular Hemoglobin Concent 32, Red Cell Distribution Width 15.0, Platelet Count 308, Mean Platelet Volume 10.1, Neutrophils (%) (Auto) 83, Lymphocytes (%) (Auto) 8, Monocytes (%) (Auto) 7, Eosinophils (%) (Auto) 1, Basophils (%) (Auto) 0, Neutrophils # (Auto) 12.5, Lymphocytes # (Auto) 1.2, Monocytes # (Auto) 1.1, Eosinophils # (Auto) 0.2, Basophils # (Auto) 0.0, Neutrophils % (Manual) 87, Lymphocytes % (Manual) 7, Monocytes % (Manual) 2, Eosinophils % (Manual) 2, Basophils % (Manual) 0, Band Neutrophils 2, D-Dimer 6.06, Sodium Level 141, Potassium Level 4.4, Chloride Level 97, Carbon Dioxide Level 29, Anion Gap 15, Blood Urea Nitrogen 44, Creatinine 1.24, Estimat Glomerular Filtration Rate 45, BUN/Creatinine Ratio 35, Glucose Level 162, Calcium Level 9.0, Corrected Calcium 10.2, Total Bilirubin 0.6, Aspartate Amino Transf (AST/SGOT) 125, Alanine Ami notransferase (ALT/SGPT) 105, Alkaline Phosphatase 327, Troponin I < 0.30, Pro-B-Type Natriuretic Peptide 229.5, Total Protein 8.3, Albumin 2.5 02/17/20 21:20: Group A Streptococcus Screen NEGATIVE 02/18/20 04:20: White Blood Count 15.1, Red Blood Count 3.88, Hemoglobin 11.6, Hematocrit 37, Mean Corpuscular Volume 95, Mean Corpuscular Hemoglobin 30, Mean Corpuscular Hemoglobin Concent 32, Red Cell Distribution Width 15.5, Platelet Count 283, Mean Platelet Volume 10.0, Neutrophils (%) (Auto) 93, Lymphocytes (%) (Auto) 3, Monocytes (%) (Auto) 4, Eosinophils (%) (Auto) 0, Basophils (%) (Auto) 0, Neutrophils # (Auto) 14.1, Lymphocytes # (Auto) 0.5, Monocytes # (Auto) 0.5, Eosinophils # (Auto) 0.0, Basophils # (Auto) 0.0, Sodium Level 139, Potassium Level 4.3, Chloride Level 99, Carbon Dioxide Level 26, Anion Gap 14, Blood Urea Nitrogen 43, Creatinine 1.09, Estimat Glomerular Filtration Rate 52, BUN/Creatinine Ratio 39, Glucose Level 217, Calcium Level 8.7, Corrected Calcium 9.6, Total Bilirubin 0.6, Aspartate Amino Transf (AST/SGOT) 117, Alanine Aminotransferase (ALT/SGPT) 108, Alkaline Phosphatase 322, Total Protein 8.3, Albumin 2.9, Mean Blood Glucose 146, Hemoglobin A1c 6.7, Procalcitonin 0.36 02/18/20 12:15: Hepatitis A IgM Antibody Non-Reactive, Hepatitis B Surface Antigen Non-Reactive, Hepatitis B Core IgM Antibody Non-Reactive, Hepatitis C Antibody Non-Reactive 02/18/20 16:43: Glucometer 303 02/18/20 19:50: Glucometer 328 02/19/20 04:00: White Blood Count 14.4, Red Blood Count 3.58, Hemoglobin 10.7, Hematocrit 34, Mean Corpuscular Volume 96, Mean Corpuscular Hemoglobin 30, Mean Corpuscular Hemoglobin Concent 31, Red Cell Distribution Width 15.4, Platelet Count 280, Mean Platelet Volume 9.9, Neutrophils (%) (Auto) 89, Lymphocytes (%) (Auto) 4, Monocytes (%) (Auto) 6, Eosinophils (%) (Auto) 0, Basophils (%) (Auto) 0, Neutrophils # (Auto) 12.8, Lymphocytes # (Auto) 0.6, Monocytes # (Auto) 0.9, Eosinophils # (Auto) 0.0, Basophils # (Auto) 0.0, Erythrocyte Sedimentation Rate > 140, Sodium Level 145, Potassium Level 3.8, Chloride Level 98, Carbon Dioxide Level 33, Anion Gap 14, Blood Urea Nitrogen 37, Creatinine 0.91, Estimat Glomerular Filtration Rate > 60, BUN/Creatinine Ratio 41, Glucose Level 222, Calcium Level 9.1, Corrected Calcium 10.1, Total Bilirubin 0.3, Aspartate Amino Transf (AST/SGOT) 254, Alanine Aminotransferase (ALT/SGPT) 172, Alkaline Phosphatase 301, Lactate Dehydrogenase 423, Total Creatine Kinase 134, C- Reactive Protein High Sensitivity 25.96, Total Protein 7.9, Albumin 2.8, Procalcitonin 0.26 02/19/20 12:33: Glucometer 291 02/19/20 12:39: Total Protein (PEP) 7.2, Protein Electrophoresis Pathologist SEE PATH REPORT, Immunofixation Pathologist Complete, Free Sebastian Light Chains, Quant 72.74, Free Lambda Light Chains, Quant 57.79, Free Sebastian/Lambda Light Chain Ratio 1.26 02/19/20 16:03: Glucometer 276 02/19/20 20:34: Glucometer 322 02/20/20 05:07: Glucometer 215 02/20/20 08:10: Sodium Level 142, Potassium Level 3.5, Chloride Level 94, Carbon Dioxide Level 35, Anion Gap 13, Blood Urea Nitrogen 37, Creatinine 0.84, Estimat Glomerular Filtration Rate > 60, BUN/Creatinine Ratio 44, Glucose Level 239, Calcium Level 8.8, Magnesium Level 2.1 02/20/20 11:05: Glucometer 209 02/20/20 15:19: Glucometer 250 02/20/20 20:01: Glucometer 319 02/21/20 04:50: White Blood Count 8.7, Red Blood Count 3.79, Hemoglobin 11.2, Hematocrit 37, Mean Corpuscular Volume 96, Mean Corpuscular Hemoglobin 30, Mean Corpuscular Hemoglobin Concent 31, Red Cell Distribution Width 15.4, Platelet Count 305, Mean Platelet Volume 10.3, Neutrophils (%) (Auto) 84, Lymphocytes (%) (Auto) 10, Monocytes (%) (Auto) 6, Eosinophils (%) (Auto) 0, Basophils (%) (Auto) 0, Neutrophils # (Auto) 7.3, Lymphocytes # (Auto) 0.9, Monocytes # (Auto) 0.5, Eosinophils # (Auto) 0.0, Basophils # (Auto) 0.0, Sodium Level 141, Potassium Level 3.7, Chloride Level 95, Carbon Dioxide Level 34, Anion Gap 12, Blood Urea Nitrogen 34, Creatinine 0.79, Estimat Glomerular Filtration Rate > 60, BUN/Creatinine Ratio 43, Glucose Level 320, Calcium Level 9.0, Corrected Calcium 10.0, Total Bilirubin 0.3, Aspartate Amino Transf (AST/SGOT) 249, Alanine Aminotransferase (ALT/SGPT) 261, Alkaline Phosphatase 296, Total Protein 7.8, Albumin 2.8 02/21/20 05:58: Glucometer 328 02/21/20 10:54: Glucometer 379 02/21/20 15:33: Glucometer 381 02/21/20 20:09: Glucometer 354 02/22/20 05:29: Glucometer 339 02/22/20 06:05: White Blood Count 11.7, Red Blood Count 3.87, Hemoglobin 11.4, Hematocrit 37, Mean Corpuscular Volume 96, Mean Corpuscular Hemoglobin 30, Mean Corpuscular Hemoglobin Concent 31, Red Cell Distribution Width 15.6, Platelet Count 335, Mean Platelet Volume 10.6, Neutrophils (%) (Auto) 87, Lymphocytes (%) (Auto) 9, Monocytes (%) (Auto) 5, Eosinophils (%) (Auto) 0, Basophils (%) (Auto) 0, Neutrophils # (Auto) 10.2, Lymphocytes # (Auto) 1.0, Monocytes # (Auto) 0.6, Eosinophils # (Auto) 0.0, Basophils # (Auto) 0.0 02/22/20 06:25: Sodium Level 139, Potassium Level 3.8, Chloride Level 96, Carbon Dioxide Level 31, Anion Gap 12, Blood Urea Nitrogen 36, Creatinine 0.78, Estimat Glomerular Filtration Rate > 60, BUN/Creatinine Ratio 46, Glucose Level 335, Calcium Level 9.2, Corrected Calcium 10.1, Total Bilirubin 0.4, Aspartate Amino Transf (AST/SGOT) 177, Alanine Aminotransferase (ALT/SGPT) 274, Alkaline Phosphatase 279, Total Protein 8.3, Albumin 2.9 02/22/20 11:07: Glucometer 364 02/22/20 16:20: Glucometer 347 02/22/20 19:27: Glucometer 352 02/23/20 05:15: Glucometer 331 02/23/20 10:36: Glucometer 443 02/23/20 15:49: Glucometer 417 02/23/20 20:45: Glucometer 296 02/24/20 05:35: White Blood Count 13.5, Red Blood Count 4.35, Hemoglobin 13.1, Hematocrit 41, Mean Corpuscular Volume 95, Mean Corpuscular Hemoglobin 30, Mean Corpuscular Hemoglobin Concent 32, Red Cell Distribution Width 15.2, Platelet Count 372, Mean Platelet Volume 10.8, Neutrophils (%) (Auto) 85, Lymphocytes (%) (Auto) 11, Monocytes (%) (Auto) 3, Eosinophils (%) (Auto) 0, Basophils (%) (Auto) 0, Neutrophils # (Auto) 11.5, Lymphocytes # (Auto) 1.5, Monocytes # (Auto) 0.5, Eosinophils # (Auto) 0.0, Basophils # (Auto) 0.0, Sodium Level 138, Potassium Level 4.0, Chloride Level 94, Carbon Dioxide Level 34, Anion Gap 10, Blood Urea Nitrogen 42, Creatinine 0.77, Estimat Glomerular Filtration Rate > 60, BUN/Creatinine Ratio 55, Glucose Level 262, Calcium Level 9.0, Corrected Calcium 9.8, Total Bilirubin 0.4, Aspartate Amino Transf (AST/SGOT) 71, Alanine Aminotransferase (ALT/SGPT) 203, Alkaline Phosphatase 260, Total Protein 8.1, Albumin 3.0 02/24/20 05:55: Glucometer 278 02/24/20 11:30: Glucometer 261 02/24/20 17:24: Glucometer 336 02/24/20 20:42: Glucometer 219 02/25/20 05:33: Glucometer 201 02/25/20 10:05: White Blood Count 11.7, Red Blood Count 4.46, Hemoglobin 13.2, Hematocrit 43, Mean Corpuscular Volume 95, Mean Corpuscular Hemoglobin 30, Mean Corpuscular Hemoglobin Concent 31, Red Cell Distribution Width 15.3, Platelet Count 388, Mean Platelet Volume 10.5, Neutrophils (%) (Auto) 81, Lymphocytes (%) (Auto) 14, Monocytes (%) (Auto) 4, Eosinophils (%) (Auto) 1, Basophils (%) (Auto) 0, Neutrophils # (Auto) 9.5, Lymphocytes # (Auto) 1.7, Monocytes # (Auto) 0.4, Eosinophils # (Auto) 0.1, Basophils # (Auto) 0.0, Sodium Level 137, Potassium Level 3.2, Chloride Level 89, Carbon Dioxide Level 38, Anion Gap 10, Blood Urea Nitrogen 41, Creatinine 0.90, Estimat Glomerular Filtration Rate > 60, BUN/Creatinine Ratio 46, Glucose Level 316, Calcium Level 9.0, Corrected Calcium 9.7, Total Bilirubin 0.4, Aspartate Amino Transf (AST/SGOT) 49, Alanine Aminotransferase (ALT/SGPT) 157, Alkaline Phosphatase 252, Total Protein 8.1, Albumin 3.1 02/25/20 11:22: Glucometer 302 02/25/20 16:21: Glucometer 236 Discharge Home Medications: Active Scripts Active Reported Vitamin D3 (Cholecalciferol (Vitamin D3)) 50 Mcg Capsule 50 Mcg PO DAILY Torsemide 100 Mg Tablet 50 Mg PO BID TAKES TAB OF 100MG TO EQUAL 50MG TWICE DAILY Topiramate 25 Mg Tablet 25 Mg PO DAILY Potassium Chloride 20 Meq Tablet.er 20 Meq PO DAILY Multivitamins (Multivitamin) 1 Each Tablet 1 Each PO DAILY Miralax (Polyethylene Glycol 3350) 17 Gm Powd.pack 17 Gm PO DAILY Ibuprofen 600 Mg Tablet 600 Mg PO TID Hydrochlorothiazide 12.5 Mg Tablet 12.5 Mg PO DAILY Cyclobenzaprine HCl 10 Mg Tablet 10 Mg PO Q8H PRN Colace (Docusate Sodium) 100 Mg Capsule 100 Mg PO BID Celebrex (Celecoxib) 400 Mg Capsule 400 Mg PO DAILY Calcium 600 + Vit D 200 Tablet (Calcium Carbonate/Vitamin D3) 1 Each Tablet 1 Each PO DAILY Vitamin B-1 (Thiamine HCl) 250 Mg Tablet 250 Mg PO DAILY Xanax (Alprazolam) 0.25 Mg Tablet 0.5 Mg PO HS PRN MDD 4 TABS 24 HOURS CAN TAKE 1 TAB EVERY 8 HOURS DURING THE DAY- IF THE PT HAS NOT HAD MORE THEN 2 DOSES DURING THE DAY THEN PT CAN HAVE 2 TABS AT BEDTIME. MAY NOT EXCEED 4 TABS PER 24 HOURS Atorvastatin Calcium 40 Mg Tablet 40 Mg PO DAILY Zonisamide 100 Mg Capsule 200 Mg PO BID TAKES 2 (100MG) CAPS TO EQUAL 200MG TWICE DAILY Aripiprazole 5 Mg Tablet 5 Mg PO DAILY Venlafaxine HCl 75 Mg Tab 75 Mg PO QID Omeprazole 20 Mg Capsule.dr 20 Mg PO BID Ropinirole HCl 1 Mg Tablet 1 Mg PO HS Alprazolam 0.25 Mg Tablet 0.25 Mg PO Q8H PRN MDD 4 TABS IN 24 HOURS CAN TAKE 1 TAB EVERY 8 HOURS DURING THE DAY- IF THE PT HAS NOT HAD MORE THEN 2 DOSES DURING THE DAY THEN PT CAN HAVE 2 TABS AT BEDTIME. MAY NOT EXCEED 4 TABS PER 24 HOURS Vitamin D2 (Ergocalciferol (Vitamin D2)) 1,250 Mcg Capsule 1,250 Mcg PO SUE HORN Metoprolol Tartrate 25 Mg Tablet 25 Mg PO BID HOLD FOR SBP OF 110 OR BELOW, PULSE OF 60 OR BELOW Gabapentin 300 Mg Capsule 300 Mg PO TID Metformin HCl 500 Mg Tablet 250 Mg PO DAILY TAKES OF A 500MG TAB DAILY Instructions to patient/family Please see electronic discharge instructions given to patient. Diagnosis/Problems Diagnosis/Problems (1) Acute osteomyelitis of spine Status: Acute (2) Abnormal serum protein electrophoresis (3) Weakness of both lower extremities Status: Acute (4) Acute respiratory failure with hypoxia Status: Acute (5) T2DM (type 2 diabetes mellitus) Status: Chronic Qualifiers: (6) Paresthesia of both legs Status: Acute (7) RLS (restless legs syndrome) Status: Chronic (8) Elevated liver function tests Status: Acute (9) HLD (hyperlipidemia) Status: Chronic (10) HTN (hypertension) Status: Chronic Qualifiers: Qualified Codes: I10 - Essential (primary) hypertension (11) Morbid obesity Status: Chronic (12) Hypoxia Status: Acute (13) Depression Status: Acute (14) Chronic pain Status: Acute Clinical Quality Measures DVT/VTE Risk/Contraindication: Risk Factor Score Per Nursin RFS Level Per Nursing on Admit: 4+=Very High KATELNY JENSEN DO Feb 25, 2020 12:33
--- NOTE | 2020-02-25 13:05 | NUR ---
CM/SS: Follow up with pt as to discharge plan Plan: Pt will go to inpatient rehab here at [facility] today Summary: Per physician, [facility] has denied to take pt for transfer. Pt will be going to inpatient rehab here at [facility]. Pt is pleased to know where she will be going. Pt is aware that rehab can take her today. Pt repots that she has already told her niece Steffany, so she is aware. Pt told of the bilingual social worker in rehab of [facility] and she would be working with her once she were there on plan after rehab. Pt verbalizes understanding.
== END 2020-02-25 13:20 | DRG 189 ==
LOC: EDUNIT# 19:01 → ER FS 19:03 → 4TH 21:40
PROVIDERS: ADMIT Family Medicine; ATTEND Internal Medicine
DX: J96.01 Acute respiratory failure with hypoxia (principal); J90 Pleural effusion, not elsewhere classified; Z68.43 Body mass index [BMI] 50.0-59.9, adult; M46.24 Osteomyelitis of vertebra, thoracic region; R20.2 Paresthesia of skin; Z03.818 Encounter for observation for suspected exposure to other biological agents ruled out; E66.01 Morbid (severe) obesity due to excess calories; I10 Essential (primary) hypertension; E11.69 Type 2 diabetes mellitus with other specified complication; E78.00 Pure hypercholesterolemia, unspecified; K21.9 Gastro-esophageal reflux disease without esophagitis; R32 Unspecified urinary incontinence; M54.42 Lumbago with sciatica, left side; R26.2 Difficulty in walking, not elsewhere classified; G25.81 Restless legs syndrome; Z98.84 Bariatric surgery status; F41.9 Anxiety disorder, unspecified; G83.9 Paralytic syndrome, unspecified; F32.9 Major depressive disorder, single episode, unspecified; Z87.891 Personal history of nicotine dependence; Z79.1 Long term (current) use of non-steroidal anti-inflammatories (NSAID)
CPT/HCPCS: 36415; 71045; 71260; 74177; 80048; 80053; 80074; 82550; 82962; 83036; 83615; 83735; 83880; 83883; 84145; 84155; 84165; 84484; 85007; 85025; 85027; 85379; 85652; 86141; 86334; 87040; 87430; 87635; 87804; 94640; 94760; 96361; 96365; 96375

== ENCOUNTER 2020-02-25 12:42 | Inpatient (IN) | payer MEDICARE ==
[~2020-02-25] VITALS: Ht 165.1 cm; Wt 156.9 kg
[~2020-02-25 12:42] MED LIST changes: +ALPR0.25 PO; +CALC-6 PO; +CELE400C PO; +CHOL20002 PO; +DOCU-143 PO; +HYDR12.56 PO; +IBUP-1773 PO; +MULT1TAB69 PO; +POLY17PO6 PO; +POTA-51 PO; +RT-ALBUINH IH; +THIA250T8 PO; +TOPI25TA10 PO; +TORS100T4 PO
[2020-02-25] MEDS ORDERED: FLEET ENEMA ADULT 1 EA BTL PR PRN (13:15)
[2020-02-25] MEDS ORDERED: ONDANSETRON 4 MG (ZOFRAN) ORAL DISSOLVE TAB PO PRN ×2 (13:15→15:15)
[2020-02-25] MEDS ORDERED: DOCUSATE SODIUM 100 MG (COLACE) CAP PO PRN (13:15)
[2020-02-25] MEDS ORDERED: BISACODYL 10 MG SUPP (DULCOLAX) PR PRN ×2 (13:15→15:15)
[2020-02-25] MEDS ORDERED: LACTULOSE SYRUP 10GM/15ML (ENULOSE) 30ML UDC PO PRN (13:15)
[2020-02-25] MEDS ORDERED: CALCIUM CARBONATE 500 MG (TUMS) TAB.CHEW PO PRN (13:15)
[2020-02-25] MEDS ORDERED: guaiFENesin/CODEINE (ROBITUSSIN AC) 10ML UDC PO PRN (13:15)
[2020-02-25] MEDS ORDERED: diphenhydrAMINE 25 MG TAB (BENADRYL) PO PRN ×2 (13:15→15:15)
[2020-02-25] MEDS ORDERED: LOPERAMIDE 2 MG (IMODIUM) TABLET PO PRN (13:15)
[2020-02-25 13:20] VITALS: BP 147/88
--- NOTE | 2020-02-25 13:20 | NUR ---
Pt admitted to room 222 from 4th floor, via w/c accompanied by PT. TRUNG HASSAN introduced to surroundings, call light, bed controls, phone, TV, temperature control, lights, meal times, smoking policy, visitor policy, side rail policy, bathrooms and showers. Patient Rights given to patient in the handbook. TRUNG HASSAN verbalizes understanding that [facility] is not responsible for the loss or damage to any personal effects or valuables that are kept in the patients posession during their hospitalization. The following Patient Care Plans were discussed with the pt: Discharge Planning, Alteration in mobility, Self care deficit, Potential for fall(s), injury. TRUNG HASSAN verbalizes understanding of Interdisciplinary Patient Education. Patient and/or family were informed about the Rapid Response Team and its purpose. Patient received Patient Rights Booklet, which includes Privacy Act Statement and Data Collection Information Summary.
--- NOTE | 2020-02-25 14:01 | NUR ---
PT TRANSFERRED FROM 4TH FLOOR TO IRF- I ENTERED THE MED REC WHEN SHE WAS ON 4TH FLOOR USING THE MAR FROM THE CARE FACILITY SHE WAS RESIDING. I REVIEWED ALL THE MEDS TO BE CONTINUED FOR USE ON IRF
--- OUTSIDE RECORDS SUMMARY | 2020-02-25 14:32 | XMS REPORT | Continuity of Care Document ---
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 10/29/2019 EDUARDO FISHER MD, Ot I89 .0 LYMPHEDEMA, NOT ELSEWHERE CLASSIFIED 10/29/2019 EDUARDO FISHER MD, Ot 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 ULCER OF RIGHT CALF 11/03/2019 EDUARDO FISHER MD, Ot E11.622 TYPE 2 DIABETES MELLITUS WITH OTHER SKIN 11/03/2019 EDUARDO FISHER MD, Ot E66.01 MORBID (SEVERE) OBESITY DUE TO EXCESS CA 11/03/2019 EDUARDO FISHER MD, Ot 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 11/03/2019 [...] 11/26/2019 EDUARDO FISHER MD, Ot 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 11/26/2019 EDUARDO FISHER MD, Ot I89 .0 LYMPHEDEMA, NOT ELSEWHERE CLASSIFIED 11/26/2019 EDUARDO FISHER MD, Ot 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 ULCER OF RIGHT CALF 11/26/2019 EDUARDO FISHER MD, Ot E11.622 TYPE 2 DIABETES MELLITUS WITH OTHER SKIN 11/26/2019 EDUARDO FISHER MD, Ot E66.01 MORBID (SEVERE) OBESITY DUE TO EXCESS CA 11/26/2019 EDUARDO FISHER MD, Ot 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 11/26/2019 [...] 11/29/2019 EDUARDO FISHER MD, Ot 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 11/29/2019 EDUARDO FISHER MD, Ot I89 .0 LYMPHEDEMA, NOT ELSEWHERE CLASSIFIED 11/29/2019 EDUARDO FISHER MD, Ot 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 ULCER OF RIGHT CALF 11/30/2019 NATALIA MD, EDUARDO G Ot E11.52 TYPE 2 DIABETES W DIABETIC [...] MELLITUS WITH OTHER SKIN 12/02/2019 EDUARDO FISHER MD Ot E66.01 MORBID (SEVERE) OBESITY DUE TO EXCESS CA 12/02/2019 EDUARDO FISHER MD, Ot I89 .0 LYMPHEDEMA, NOT ELSEWHERE CLASSIFIED 12/02/2019 EDUARDO FISHER MD Ot L97.211 NON-PRS CHRONIC ULCER OF RIGHT CALF LIMI 12/07/2019 EDUARDO FISHER MD Ot E11.52 TYPE 2 DIABETES W DIABETIC PERIPHERAL AN 12/07/2019 EDUARDO FISHER MD Ot E11.622 TYPE 2 DIABETES MELLITUS WITH OTHER SKIN 12/07/2019 EDUARDO FISHER MD Ot E66.01 MORBID (SEVERE) OBESITY DUE TO EXCESS CA 12/07/2019 EDUARDO FISHER MD Ot I89 .0 LYMPHEDEMA, [...] ALLERGY STATUS TO OT DRUG/MEDS/BIOL SUB 01/16/2020 EDUADRO FISHER MD Ot E11.52 TYPE 2 DIABETES W DIABETIC PERIPHERAL AN 01/16/2020 EDUARDO FISHER MD, Ot E11.622 TYPE 2 DIABETES MELLITUS WITH OTHER SKIN 01/16/2020 EDUARDO FISHER MD, Ot E66.01 MORBID (SEVERE) OBESITY DUE TO EXCESS CA 01/16/2020 EDUARDO FISHER MD Ot 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 01/16/2020 EDUARDO FISHER MD, Ot I89 .0 LYMPHEDEMA, NOT ELSEWHERE CLASSIFIED 01/16/2020 EDUARDO FISHER MD Ot 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 ULCER OF RIGHT CALF 01/16/2020 EDUARDO FISHER MD, Ot E11.622 TYPE 2 DIABETES MELLITUS WITH OTHER SKIN 01/16/2020 EDUARDO FISHER MD, Ot E66.01 MORBID (SEVERE) OBESITY DUE TO EXCESS CA 01/16/2020 EDUARDO FISHER MD Ot 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 01/16/2020 [...] 01/16/2020 EDUARDO FISHER MD Ot 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 01/16/2020 [...] DUE TO EXCESS CA 01/16/2020 EDUARDO FISHER MD, Ot I89 .0 [...] DUE TO EXCESS CA 01/16/2020 EDUARDO FISHER MD, Ot I89 .0 LYMPHEDEMA, NOT ELSEWHERE CLASSIFIED 01/16/2020 EDUARDO FISHER MD, Ot L97.211 NON-PRS CHRONIC [...] 2 NON-PRESSURE CHRONIC ULCER OF RIGHT CALF 02/03/2020 SELF KEYSHA NGUYỄN Ot E11.62 2 TYPE 2 DIABETES MELLITUS WITH OTHER SKIN 02/03/2020 SELF KEYSHA NGUYỄN Ot E66.01 MORBID (SEVERE) OBESITY DUE TO EXCESS CA 02/03/2020 SELF KEYSHA NGUYỄN Ot I89.0 LYMPHEDEMA, NOT ELSEWHERE CLASSIFIED 02/03/2020 SELF KEYSHA NGUYỄN Ot L97.21 2 NON-PRESSURE CHRONIC ULCER OF RIGHT CALF 02/12/2020 Ot E11.9 TYPE 2 DIABETES MELLITUS WITHOUT COMPLIC 02/12/2020 Ot K59.00 CON STIPATION, UNSPECIFIED 02/12/2020 Ot M54.16 RAD ICULOPATHY, LUMBAR REGION 02/12/2020 Ot M54.42 LUM BAGO WITH SCIATICA, LEFT SIDE 02/12/2020 Ot M54.5 LOW BACK PAIN 02/12/2020 Ot Z88.8 SERGEI RGY STATUS TO OTH DRUG/MEDS/BIOL SUB 02/13/2020 Ot F32.9 ENMANUEL R DEPRESSIVE DISORDER, SINGLE EPISOD 02/13/2020 Ot F41.9 ANXI ETY DISORDER, UNSPECIFIED 02/13/2020 Ot R20.2 PARE STHESIA OF SKIN 02/13/2020 Ot Z88.8 SERGEI RGY STATUS TO OTH DRUG/MEDS/BIOL SUB 02/14/2020 MADELINE BENÍTEZ MD Ot E66.01 MORBID (SEVERE) OBESITY DUE TO EXCESS CA 02/14/2020 MADELINE BENÍTEZ MD Ot F32.9 MAJOR DEPRESSIVE DISORDER, SINGLE EPISOD 02/14/2020 MADELINE BENÍTEZ MD Ot F41.9 ANXIETY DISORDER, UNSPECIFIED 02/14/2020 MADELINE BENÍTEZ MD Ot G89.29 OTHER CHRONIC PAIN 02/14/2020 MADELINE BENÍTEZ MD Ot K56.41 FECAL IMPACTION 02/14/2020 MADELINE BENÍTEZ MD Ot K59.00 CONSTIPATION, UNSPECIFIED 02/14/2020 MADELINE BENÍTEZ MD Ot M54.16 RADICULOPATHY, LUMBAR REGION 02/14/2020 MADELINE BENÍTEZ MD Ot Z88.8 ALLERGY STATUS TO OTH DRUG/MEDS/BIOL SUB 02/15/2020 Ot E11.9 TYPE 2 DIABETES MELLITUS WITHOUT COMPLIC 02/15/2020 Ot K59.00 CON STIPATION, UNSPECIFIED 02/15/2020 Ot M54.16 RAD ICULOPATHY, LUMBAR REGION 02/15/2020 Ot M54.42 LUM BAGO WITH SCIATICA, LEFT SIDE 02/15/2020 Ot M54.5 LOW BACK PAIN 02/15/2020 Ot Z88.8 SERGEI RGY STATUS TO OTH DRUG/MEDS/BIOL SUB 02/15/2020 Ot E11.9 TYPE 2 DIABETES MELLITUS WITHOUT COMPLIC 02/15/2020 Ot K59.00 CON STIPATION, UNSPECIFIED 02/15/2020 Ot M54.16 RAD ICULOPATHY, LUMBAR REGION 02/15/2020 Ot M54.42 LUM BAGO WITH SCIATICA, LEFT SIDE 02/15/2020 Ot M54.5 LOW BACK PAIN 02/15/2020 Ot Z88.8 SERGEI RGY STATUS TO OTH DRUG/MEDS/BIOL SUB 02/17/2020 MADELINE BENÍTEZ MD Ot E66.01 MORBID (SEVERE) OBESITY DUE TO EXCESS CA 02/17/2020 MADELINE BENÍTEZ MD Ot F32.9 MAJOR DEPRESSIVE DISORDER, SINGLE EPISOD 02/17/2020 MADELINE BENÍTEZ MD Ot F41.9 ANXIETY DISORDER, UNSPECIFIED 02/17/2020 MADELINE BENÍTEZ MD Ot G89.29 OTHER CHRONIC PAIN 02/17/2020 MADELINE BENÍTEZ MD Ot K56.41 FECAL IMPACTION 02/17/2020 MADELINE BENÍTEZ MD Ot K59.00 CONSTIPATION, UNSPECIFIED 02/17/2020 MADELINE BENÍTEZ MD Ot M54.16 RADICULOPATHY, LUMBAR REGION 02/17/2020 MADELINE BENÍTEZ MD Ot Z88.8 ALLERGY STATUS TO OTH DRUG/MEDS/BIOL SUB 02/17/2020 EDUARDO FISHER MD, Ot E11.52 TYPE 2 DIABETES W DIABETIC PERIPHERAL AN 02/17/2020 EDUARDO FISHER MD, Ot E11.622 TYPE 2 DIABETES MELLITUS WITH OTHER SKIN 02/17/2020 EDUARDO FISHER MD, Ot E66.01 MORBID (SEVERE) OBESITY DUE TO EXCESS CA 02/17/2020 EDUARDO FISHER MD Ot 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 02/17/2020 EDUARDO FISHER MD, Ot I89 .0 LYMPHEDEMA, NOT ELSEWHERE CLASSIFIED 02/17/2020 EDUARDO FISHER MD, Ot 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 ULCER OF RIGHT CALF 02/17/2020 EDUARDO FISHER MD, Ot E11.622 TYPE 2 DIABETES MELLITUS WITH OTHER SKIN 02/17/2020 EDUARDO FISHER MD, Ot E66.01 MORBID (SEVERE) OBESITY DUE TO EXCESS CA 02/17/2020 EDUARDO FISHER MD Ot 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 02/17/2020 EDUARDO FISHER MD, Ot I89 .0 LYMPHEDEMA, NOT ELSEWHERE CLASSIFIED 02/17/2020 EDUARDO FISHER MD, Ot 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 ULCER OF RIGHT CALF 02/17/2020 EDUARDO FISHER MD, Ot E11.52 TYPE 2 DIABETES W DIABETIC PERIPHERAL AN 02/17/2020 EDUARDO FISHER MD, Ot E11.622 TYPE 2 DIABETES MELLITUS WITH OTHER SKIN 02/17/2020 EDUARDO FISHER MD, Ot E66.01 MORBID (SEVERE) OBESITY DUE TO EXCESS CA 02/17/2020 EDUARDO FISHER MD Ot 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 02/17/2020 EDUARDO FISHER MD, Ot I89 .0 LYMPHEDEMA, NOT ELSEWHERE CLASSIFIED 02/17/2020 EDUARDO FISHER MD Ot 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 ULCER OF RIGHT CALF 02/17/2020 EDUARDO FISHER MD Ot E11.52 TYPE 2 DIABETES W DIABETIC PERIPHERAL AN 02/17/2020 EDUARDO FISHER MD, Ot E11.622 TYPE 2 DIABETES MELLITUS WITH OTHER SKIN 02/17/2020 EDUARDO FISHER MD, Ot E66.01 MORBID (SEVERE) OBESITY DUE TO EXCESS CA 02/17/2020 EDUARDO FISHER MD, Ot I89 .0 LYMPHEDEMA, NOT ELSEWHERE CLASSIFIED 02/17/2020 EDUARDO FISHER MD, Ot 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 ULCER OF RIGHT CALF 02/17/2020 EDUARDO FISHER MD Ot E11.52 TYPE 2 DIABETES W DIABETIC PERIPHERAL AN 02/17/2020 EDUARDO FISHER MD, Ot E11.622 TYPE 2 DIABETES MELLITUS WITH OTHER SKIN 02/17/2020 EDUARDO FISHER MD Ot E66.01 MORBID (SEVERE) OBESITY DUE TO EXCESS CA 02/17/2020 EDUARDO FISHER MD, Ot I89 .0 LYMPHEDEMA, NOT ELSEWHERE CLASSIFIED 02/17/2020 EDUARDO FISHER MD, Ot L97.211 NON-PRS CHRONIC ULCER OF RIGHT CALF LIMI 02/17/2020 EDUARDO FISHER MD, Ot E11.622 TYPE 2 DIABETES MELLITUS WITH OTHER SKIN 02/17/2020 EDUARDO FISHER MD, Ot E66.01 MORBID (SEVERE) OBESITY DUE TO EXCESS CA 02/17/2020 EDUARDO FISHER MD, Ot I89 .0 LYMPHEDEMA, NOT ELSEWHERE CLASSIFIED 02/17/2020 EDUARDO FISHER MD Ot L97.211 NON-PRS CHRONIC ULCER OF RIGHT CALF LIMI 02/18/2020 JENSEN DO, KATELYN Ot E11.9 TYPE 2 DIABETES MELLITUS WITHOUT COMPLIC 02/18/2020 JENSEN DO, KATELYN Ot E66.01 MORBID (SEVERE) OBESITY DUE TO EXCESS CA 02/18/2020 JENSEN DO, KATELYN Ot E78.00 PURE HYPERCHOLESTEROLEMIA, UNSPECIFIED 02/18/2020 JENSEN DO, KATELYN Ot F32.9 MAJOR DEPRESSIVE DISORDER, SINGLE EPISOD 02/18/2020 JENSEN DO, KATELYN Ot F41.9 ANXIETY DISORDER, UNSPECIFIED 02/18/2020 JENSEN DO, KATELYN Ot G25.81 RESTLESS LEGS SYNDROME 02/18/2020 JENSEN DO, KATELYN Ot I10 ESSENTIAL (PRIMARY) HYPERTENSION 02/18/2020 JENSEN DO, KATELYN Ot J18.9 PNEUMONIA, UNSPECIFIED ORGANISM 02/18/2020 JENSEN DO, KATELYN Ot J96.01 ACUTE RESPIRATORY FAILURE WITH HYPOXIA 02/18/2020 JENSEN DO, KATELYN Ot J98.11 ATELECTASIS 02/18/2020 JENSEN DO, KATELYN Ot K21.9 GASTRO-ESOPHAGEAL REFLUX DISEASE WITHOUT 02/18/2020 JENSEN DO, KATELYN Ot M54.42 LUMBAGO WITH SCIATICA, LEFT SIDE 02/18/2020 JENSEN DO, KATELYN Ot M62.81 MUSCLE WEAKNESS (GENERALIZED) 02/18/2020 JENSEN DO, KATELYN Ot R06.2 WHEEZING 02/18/2020 JENSEN DO, KATELYN Ot R07.89 OTHER CHEST PAIN 02/18/2020 JENSEN DO, KATELYN Ot R20.2 PARESTHESIA OF SKIN 02/18/2020 JENSEN DO, KATELYN Ot R26.2 DIFFICULTY IN WALKING, NOT ELSEWHERE CLA 02/18/2020 JENSEN DO, KATELYN Ot R32 UNSPECIFIED URINARY INCONTINENCE 02/18/2020 JENSEN DO, KATELYN Ot R60.9 EDEMA, UNSPECIFIED 02/18/2020 JENSEN DO, KATELYN Ot Z68.43 BODY MASS INDEX (BMI) 50.0-59.9, ADULT 02/18/2020 JENSEN DO, KATELYN Ot Z98.84 BARIATRIC SURGERY STATUS 02/24/2020 JENSEN DO, KATELYN Ot E11.9 TYPE 2 DIABETES MELLITUS WITHOUT COMPLIC 02/24/2020 JENSEN DO, KATELYN Ot E66.01 MORBID (SEVERE) OBESITY DUE TO EXCESS CA 02/24/2020 JENSEN DO, KATELYN Ot E78.00 PURE HYPERCHOLESTEROLEMIA, UNSPECIFIED 02/24/2020 JENSEN DO, KATELYN Ot F32.9 MAJOR DEPRESSIVE DISORDER, SINGLE EPISOD 02/24/2020 JENSEN DO, KATELYN Ot F41.9 ANXIETY DISORDER, UNSPECIFIED 02/24/2020 JENSEN DO, KATELYN Ot G25.81 RESTLESS LEGS SYNDROME 02/24/2020 JENSEN DO, KATELYN Ot I10 ESSENTIAL (PRIMARY) HYPERTENSION 02/24/2020 JENSEN DO, KATELYN Ot J18.9 PNEUMONIA, UNSPECIFIED ORGANISM 02/24/2020 JENSEN DO, KATELYN Ot J96.01 ACUTE RESPIRATORY FAILURE WITH HYPOXIA 02/24/2020 JENSEN DO, KATELYN Ot J98.11 ATELECTASIS 02/24/2020 JENSEN DO, KATELYN Ot K21.9 GASTRO-ESOPHAGEAL REFLUX DISEASE WITHOUT 02/24/2020 JENSEN DO, KATELYN Ot M54.42 LUMBAGO WITH SCIATICA, LEFT SIDE 02/24/2020 JENSEN DO, KATELYN Ot M62.81 MUSCLE WEAKNESS (GENERALIZED) 02/24/2020 JENSEN DO, KATELYN Ot R06.2 WHEEZING 02/24/2020 JENSEN DO, KATELYN Ot R07.89 OTHER CHEST PAIN 02/24/2020 JENSEN DO, KATELYN Ot R20.2 PARESTHESIA OF SKIN 02/24/2020 JENSEN DO, KATELYN Ot R26.2 DIFFICULTY IN WALKING, NOT ELSEWHERE CLA 02/24/2020 JENSEN DO, KATELYN Ot R32 UNSPECIFIED URINARY INCONTINENCE 02/24/2020 JENSEN DO, KATELYN Ot R60.9 EDEMA, UNSPECIFIED 02/24/2020 JENSEN DO, KATELYN Ot Z68.43 BODY MASS INDEX (BMI) 50.0-59.9, ADULT 02/24/2020 JENSEN DO, KATELYN Ot Z98.84 BARIATRIC SURGERY STATUS 02/25/2020 Ot F32.9 ENMANUEL R DEPRESSIVE DISORDER, SINGLE EPISOD 02/25/2020 Ot F41.9 ANXI ETY DISORDER, UNSPECIFIED 02/25/2020 Ot R20.2 PARE STHESIA OF SKIN 02/25/2020 Ot Z88.8 SERGEI RGY STATUS TO [facility] DRUG/MEDS/BIOL SUB Procedures There is no data. [...] FOR INFLUENZA A AND B ANTIGENS BY [facility] Complete blood count (CBC) with automate [...] FOR INFLUENZA A AND B ANTIGENS BY [facility] Comprehensive metabolic panel - 02/12/20 10:12 Serum [...] culture - 02/13/20 19:29 Bacterial urine culture NG NRG Complete blood count (CBC) with automate [...] 21:20 Streptococcus pyogenes antigen detection NEGATIVE NEGATIVE Bacterial throat culture - 02/17/20 21:2 0 Bacterial throat culture [id number] NRG FREE TEXT EXTERNAL PLUS NORMAL WONG NR G QUANTITY OF GROWTH Abundant Growth NRG FREE TEXT EXTERNAL 2 NO BETA STREP ISOLATED NRG FREE TEXT EXTERNAL 3 METHICILLIN SUSCEPTIBILE STAP H AUREUS NRG FREE TEXT ENTRY 4 SCREENING AT [facility] 02/19/10 8:30 NRG Complete blood count (CBC) with automate d white blood cell (WBC) differential - 02/18/20 04:20 Blood leukocytes automated count (number/volume) 15.1 10*3/uL 4.3-11.0 Blood erythrocytes automated count (number/volume) 3.88 10*6/uL 4.35-5.85 Venous blood hemoglobin measurement (mass/volume) 11.6 g/dL 11.5-16.0 Blood hematocrit (volume fraction) 37 % 35-52 Automated erythrocyte mean corpuscular volume 95 [ foz_us] 80-99 Automated erythrocyte mean corpuscular h emoglobin (mass per erythrocyte) 30 pg 25-34 Automated erythrocyte mean corpuscular h emoglobin concentration measurement (mass/volume) 32 g/dL 32-36 Automated erythrocyte distribution width ratio 15. 5 % 10.0- 14.5 Automated blood platelet count (count/volume) 283 10*3/uL 130-400 Automated blood platelet mean volume measurement 10.0 [foz_us] 7.4-10.4 Automated blood neutrophils/100 leukocytes 93 % 42-75 Automated blood lymphocytes/100 leukocytes 3 % 12-44 Blood monocytes/100 leukocytes 4 % 0-12 Automated blood eosinophils/100 leukocytes 0 % 0-10 Automated blood basophils/100 leukocytes 0 % 0-10 Blood neutrophils automated count (number/volume) 14.1 10*3 1.8-7.8 Blood lymphocytes automated count (number/volume) 0.5 10*3 1.0-4.0 Blood monocytes automated count (number/volume) 0. 5 10*3 0.0-1.0 Automated eosinophil count 0.0 10*3/uL 0 .0-0.3 Automated blood basophil count (count/volume) 0.0 10*3/uL 0.0-0.1 Comprehensive metabolic panel - 02/18/20 04:20 Serum or plasma sodium measurement (moles/volume) 139 mmol/L 135-145 Serum or plasma potassium measurement (moles/volume) 4.3 mmol/L 3.6-5.0 Serum or plasma chloride measurement (moles/volume) 99 mmol/L 98-107 Carbon dioxide 26 mmol/L 21-32 Serum or plasma anion gap determination (moles/volume) 14 mmol/L 5-14 Serum or plasma urea nitrogen measurement (mass/volume ) 43 mg/dL 7-18 Serum or plasma creatinine measurement (mass/volume) 1.09 mg/dL 0.60-1.30 Serum or plasma urea nitrogen/creatinine mass ratio 39 NRG Serum or plasma creatinine measurement w ith calculation of estimated glomerular filtration rate 52 NRG Serum or plasma glucose measurement (mass/volume) 217 mg/dL 70-105 Serum or plasma calcium measurement (mass/volume) 8.7 mg/dL 8.5-10.1 Serum or plasma total bilirubin measurement (mass/volu me) 0.6 mg/dL 0.1-1.0 Serum or plasma alkaline phosphatase wesley surement (enzymatic activity/volume) 322 U/L 40-136 Serum or plasma aspartate aminotransfera se measurement (enzymatic activity/volume) 117 U/L 5-34 Serum or plasma alanine aminotransferase measurement (enzymatic activity/volume) 108 U/L 0-55 Serum or plasma protein measurement (mass/volume) 8.3 g/dL 6.4-8.2 Serum or plasma albumin measurement (mass/volume) 2.9 g/dL 3.2-4.5 CALCIUM CORRECTED 9.6 mg/dL 8.5-10.1 PROCALCITONIN (PCT) - 02/18/20 04:20 PROCALCITONIN (PCT) 0.36 ng/mL <0.10 Hemoglobin A1c measurement - 02/18/20 04 :20 Blood hemoglobin A1C measurement (mass/volume) 6.7 % 4.0-5.6 MEAN BLOOD GLUCOSE 146 % <=126 Acute hepatitis panel - 02/18/20 12:15 HEPATITIS A ANTIBODY IGM Non-Reactive N on-Reactive HEPATITIS B CORE KEVON IGM Non-Reactive N on-Reactive Confirmatory quantitative serum or plasm a hepatitis B virus surface antigen measurement Non-Reactive Non-Reactive Serum hepatitis C virus antibody detection Non-Tala ctive Non-Reactive Capillary blood glucose measurement by g lucometer (mass/volume) - 02/18/20 16:43 Capillary blood glucose measurement by glucometer (mas s/volume) 303 mg/dL 70-110 Bacterial blood culture - 02/18/20 17:02 Bacterial blood culture NG [facility] Bacterial blood culture - 02/18/20 17:09 Bacterial blood culture NG [facility] Bacterial blood culture - 02/18/20 17:15 QUANTITY OF GROWTH Isolated [facility] Bacterial blood culture [id number] [facility] Capillary blood glucose measurement by g lucometer (mass/volume) - 02/18/20 19:50 Capillary blood glucose measurement by glucometer (mas s/volume) 328 mg/dL 70-110 Complete blood count (CBC) with automate d white blood cell (WBC) differential - 02/19/20 04:00 Blood leukocytes automated count (number/volume) 14.4 10*3/uL 4.3-11.0 Blood erythrocytes automated count (number/volume) 3.58 10*6/uL 4.35-5.85 Venous blood hemoglobin measurement (mass/volume) 10.7 g/dL 11.5-16.0 Blood hematocrit (volume fraction) 34 % 35-52 Automated erythrocyte mean corpuscular volume 96 [ foz_us] 80-99 Automated erythrocyte mean corpuscular h emoglobin (mass per erythrocyte) 30 pg 25-34 Automated erythrocyte mean corpuscular h emoglobin concentration measurement (mass/volume) 31 g/dL 32-36 Automated erythrocyte distribution width ratio 15. 4 % 10.0- 14.5 Automated blood platelet count (count/volume) 280 10*3/uL 130-400 Automated blood platelet mean volume measurement 9.9 [foz_us] 7.4-10.4 Automated blood neutrophils/100 leukocytes 89 % 42-75 Automated blood lymphocytes/100 leukocytes 4 % 12-44 Blood monocytes/100 leukocytes 6 % 0-12 Automated blood eosinophils/100 leukocytes 0 % 0-10 Automated blood basophils/100 leukocytes 0 % 0-10 Blood neutrophils automated count (number/volume) 12.8 10*3 1.8-7.8 Blood lymphocytes automated count (number/volume) 0.6 10*3 1.0-4.0 Blood monocytes automated count (number/volume) 0. 9 10*3 0.0-1.0 Automated eosinophil count 0.0 10*3/uL 0 .0-0.3 Automated blood basophil count (count/volume) 0.0 10*3/uL 0.0-0.1 Comprehensive metabolic panel - 02/19/20 04:00 Serum or plasma sodium measurement (moles/volume) 145 mmol/L 135-145 Serum or plasma potassium measurement (moles/volume) 3.8 mmol/L 3.6-5.0 Serum or plasma chloride measurement (moles/volume) 98 mmol/L 98-107 Carbon dioxide 33 mmol/L 21-32 Serum or plasma anion gap determination (moles/volume) 14 mmol/L 5-14 Serum or plasma urea nitrogen measurement (mass/volume ) 37 mg/dL 7-18 Serum or plasma creatinine measurement (mass/volume) 0.91 mg/dL 0.60-1.30 Serum or plasma urea nitrogen/creatinine mass ratio 41 NRG Serum or plasma creatinine measurement w ith calculation of estimated glomerular filtration rate > NRG Serum or plasma glucose measurement (mass/volume) 222 mg/dL 70-105 Serum or plasma calcium measurement (mass/volume) 9.1 mg/dL 8.5-10.1 Serum or plasma total bilirubin measurement (mass/volu me) 0.3 mg/dL 0.1-1.0 Serum or plasma alkaline phosphatase wesley surement (enzymatic activity/volume) 301 U/L 40-136 Serum or plasma aspartate aminotransfera se measurement (enzymatic activity/volume) 254 U/L 5-34 Serum or plasma alanine aminotransferase measurement (enzymatic activity/volume) 172 U/L 0-55 Serum or plasma protein measurement (mass/volume) 7.9 g/dL 6.4-8.2 Serum or plasma albumin measurement (mass/volume) 2.8 g/dL 3.2-4.5 CALCIUM CORRECTED 10.1 mg/dL 8.5-10.1 PROCALCITONIN (PCT) - 02/19/20 04:00 PROCALCITONIN (PCT) 0.26 ng/mL <0.10 Serum ragweed IgE antibody assay - 02/18 04:00 Serum ragweed IgE antibody assay 423 U/L 125-220 Serum or plasma creatine kinase measurem ent (enzymatic activity/volume) - 02/19/20 04:00 Serum or plasma creatine kinase measurem ent (enzymatic activity/volume) 134 U/L 29-168 Serum or plasma C reactive protein measu rement (mass/volume) - 02/19/20 04:00 Serum or plasma C reactive protein measurement (mass/v olume) 25.96 mg/dL 0.00-0.50 Erythrocyte sedimentation rate by dariela gren method - 02/19/20 04:00 Erythrocyte sedimentation rate by westergren method > mm 0- 30 Capillary blood glucose measurement by g lucometer (mass/volume) - 02/19/20 12:33 Capillary blood glucose measurement by glucometer (mas s/volume) 291 mg/dL 70-110 IMMUNOFIXATION W/INTERP, SERUM - 0 12:39 Serum or plasma nordiazepam detection Complete Complete Serum protein electrophoresis - 02/19/20 12:39 Serum or plasma protein measurement (mass/volume) 7.2 % 6.4- 8.1 Pathology consultation and report SEE PATH REPORT NRG Quantitative urine kappa and lambda free light chains measurement - 02/19/20 12:39 Quantitative serum kappa light chain measurement 7 2.74 % 3.30-19.40 Quantitative serum lambda light chain measurement 57.79 % 5.71-26.30 Serum immunoglobulin free kappa light ch ains/immunoglobulin lambda light chains mass ratio 1.26 % 0.26-1.65 Capillary blood glucose measurement by g lucometer (mass/volume) - 02/19/20 16:03 Capillary blood glucose measurement by glucometer (mas s/volume) 276 mg/dL 70-110 Capillary blood glucose measurement by g lucometer (mass/volume) - 02/19/20 20:34 Capillary blood glucose measurement by glucometer (mas s/volume) 322 mg/dL 70-110 Capillary blood glucose measurement by g lucometer (mass/volume) - 02/20/20 05:07 Capillary blood glucose measurement by glucometer (mas s/volume) 215 mg/dL 70-110 Whole blood basic metabolic panel - 01/30 01/20 08:10 Serum or plasma sodium measurement (moles/volume) 142 mmol/L 135-145 Serum or plasma potassium measurement (moles/volume) 3.5 mmol/L 3.6-5.0 Serum or plasma chloride measurement (moles/volume) 94 mmol/L 98-107 Carbon dioxide 35 mmol/L 21-32 Serum or plasma anion gap determination (moles/volume) 13 mmol/L 5-14 Serum or plasma urea nitrogen measurement (mass/volume ) 37 mg/dL 7-18 Serum or plasma creatinine measurement (mass/volume) 0.84 mg/dL 0.60-1.30 Serum or plasma urea nitrogen/creatinine mass ratio 44 NRG Serum or plasma creatinine measurement w ith calculation of estimated glomerular filtration rate > NRG Serum or plasma glucose measurement (mass/volume) 239 mg/dL 70-105 Serum or plasma calcium measurement (mass/volume) 8.8 mg/dL 8.5-10.1 Magnesium - 02/20/20 08:10 Magnesium 2.1 mg/dL 1.6-2.4 Capillary blood glucose measurement by g lucometer (mass/volume) - 02/20/20 11:05 Capillary blood glucose measurement by glucometer (mas s/volume) 209 mg/dL 70-110 Capillary blood glucose measurement by g lucometer (mass/volume) - 02/20/20 15:19 Capillary blood glucose measurement by glucometer (mas s/volume) 250 mg/dL 70-110 Capillary blood glucose measurement by g lucometer (mass/volume) - 02/20/20 20:01 Capillary blood glucose measurement by glucometer (mas s/volume) 319 mg/dL 70-110 Complete blood count (CBC) with automate d white blood cell (WBC) differential - 02/21/20 04:50 Blood leukocytes automated count (number/volume) 8.7 10*3/uL 4.3-11.0 Blood erythrocytes automated count (number/volume) 3.79 10*6/uL 4.35-5.85 Venous blood hemoglobin measurement (mass/volume) 11.2 g/dL 11.5-16.0 Blood hematocrit (volume fraction) 37 % 35-52 Automated erythrocyte mean corpuscular volume 96 [ foz_us] 80-99 Automated erythrocyte mean corpuscular h emoglobin (mass per erythrocyte) 30 pg 25-34 Automated erythrocyte mean corpuscular h emoglobin concentration measurement (mass/volume) 31 g/dL 32-36 Automated erythrocyte distribution width ratio 15. 4 % 10.0- 14.5 Automated blood platelet count (count/volume) 305 10*3/uL 130-400 Automated blood platelet mean volume measurement 10.3 [foz_us] 7.4-10.4 Automated blood neutrophils/100 leukocytes 84 % 42-75 Automated blood lymphocytes/100 leukocytes 10 % 12-44 Blood monocytes/100 leukocytes 6 % 0-12 Automated blood eosinophils/100 leukocytes 0 % 0-10 Automated blood basophils/100 leukocytes 0 % 0-10 Blood neutrophils automated count (number/volume) 7.3 10*3 1.8-7.8 Blood lymphocytes automated count (number/volume) 0.9 10*3 1.0-4.0 Blood monocytes automated count (number/volume) 0. 5 10*3 0.0-1.0 Automated eosinophil count 0.0 10*3/uL 0 .0-0.3 Automated blood basophil count (count/volume) 0.0 10*3/uL 0.0-0.1 Comprehensive metabolic panel - 02/21/20 04:50 Serum or plasma sodium measurement (moles/volume) 141 mmol/L 135-145 Serum or plasma potassium measurement (moles/volume) 3.7 mmol/L 3.6-5.0 Serum or plasma chloride measurement (moles/volume) 95 mmol/L 98-107 Carbon dioxide 34 mmol/L 21-32 Serum or plasma anion gap determination (moles/volume) 12 mmol/L 5-14 Serum or plasma urea nitrogen measurement (mass/volume ) 34 mg/dL 7-18 Serum or plasma creatinine measurement (mass/volume) 0.79 mg/dL 0.60-1.30 Serum or plasma urea nitrogen/creatinine mass ratio 43 NRG Serum or plasma creatinine measurement w ith calculation of estimated glomerular filtration rate > NRG Serum or plasma glucose measurement (mass/volume) 320 mg/dL 70-105 Serum or plasma calcium measurement (mass/volume) 9.0 mg/dL 8.5-10.1 Serum or plasma total bilirubin measurement (mass/volu me) 0.3 mg/dL 0.1-1.0 Serum or plasma alkaline phosphatase wesley surement (enzymatic activity/volume) 296 U/L 40-136 Serum or plasma aspartate aminotransfera se measurement (enzymatic activity/volume) 249 U/L 5-34 Serum or plasma alanine aminotransferase measurement (enzymatic activity/volume) 261 U/L 0-55 Serum or plasma protein measurement (mass/volume) 7.8 g/dL 6.4-8.2 Serum or plasma albumin measurement (mass/volume) 2.8 g/dL 3.2-4.5 CALCIUM CORRECTED 10.0 mg/dL 8.5-10.1 Capillary blood glucose measurement by g lucometer (mass/volume) - 02/21/20 05:58 Capillary blood glucose measurement by glucometer (mas s/volume) 328 mg/dL 70-110 Capillary blood glucose measurement by g lucometer (mass/volume) - 02/21/20 10:54 Capillary blood glucose measurement by glucometer (mas s/volume) 379 mg/dL 70-110 Capillary blood glucose measurement by g lucometer (mass/volume) - 02/21/20 15:33 Capillary blood glucose measurement by glucometer (mas s/volume) 381 mg/dL 70-110 Capillary blood glucose measurement by g lucometer (mass/volume) - 02/21/20 20:09 Capillary blood glucose measurement by glucometer (mas s/volume) 354 mg/dL 70-110 Capillary blood glucose measurement by g lucometer (mass/volume) - 03/24/20 05:29 Capillary blood glucose measurement by glucometer (mas s/volume) 339 mg/dL 70-110 Complete blood count (CBC) with automate d white blood cell (WBC) differential - 02/22/20 06:05 Blood leukocytes automated count (number/volume) 11.7 10*3/uL 4.3-11.0 Blood erythrocytes automated count (number/volume) 3.87 10*6/uL 4.35-5.85 Venous blood hemoglobin measurement (mass/volume) 11.4 g/dL 11.5-16.0 Blood hematocrit (volume fraction) 37 % 35-52 Automated erythrocyte mean corpuscular volume 96 [ foz_us] 80-99 Automated erythrocyte mean corpuscular h emoglobin (mass per erythrocyte) 30 pg 25-34 Automated erythrocyte mean corpuscular h emoglobin concentration measurement (mass/volume) 31 g/dL 32-36 Automated erythrocyte distribution width ratio 15. 6 % 10.0- 14.5 Automated blood platelet count (count/volume) 335 10*3/uL 130-400 Automated blood platelet mean volume measurement 10.6 [foz_us] 7.4-10.4 Automated blood neutrophils/100 leukocytes 87 % 42-75 Automated blood lymphocytes/100 leukocytes 9 % 12-44 Blood monocytes/100 leukocytes 5 % 0-12 Automated blood eosinophils/100 leukocytes 0 % 0-10 Automated blood basophils/100 leukocytes 0 % 0-10 Blood neutrophils automated count (number/volume) 10.2 10*3 1.8-7.8 Blood lymphocytes automated count (number/volume) 1.0 10*3 1.0-4.0 Blood monocytes automated count (number/volume) 0. 6 10*3 0.0-1.0 Automated eosinophil count 0.0 10*3/uL 0 .0-0.3 Automated blood basophil count (count/volume) 0.0 10*3/uL 0.0-0.1 Comprehensive metabolic panel - 02/22/20 06:25 Serum or plasma sodium measurement (moles/volume) 139 mmol/L 135-145 Serum or plasma potassium measurement (moles/volume) 3.8 mmol/L 3.6-5.0 Serum or plasma chloride measurement (moles/volume) 96 mmol/L 98-107 Carbon dioxide 31 mmol/L 21-32 Serum or plasma anion gap determination (moles/volume) 12 mmol/L 5-14 Serum or plasma urea nitrogen measurement (mass/volume ) 36 mg/dL 7-18 Serum or plasma creatinine measurement (mass/volume) 0.78 mg/dL 0.60-1.30 Serum or plasma urea nitrogen/creatinine mass ratio 46 NRG Serum or plasma creatinine measurement w ith calculation of estimated glomerular filtration rate > NRG Serum or plasma glucose measurement (mass/volume) 335 mg/dL 70-105 Serum or plasma calcium measurement (mass/volume) 9.2 mg/dL 8.5-10.1 Serum or plasma total bilirubin measurement (mass/volu me) 0.4 mg/dL 0.1-1.0 Serum or plasma alkaline phosphatase wesley surement (enzymatic activity/volume) 279 U/L 40-136 Serum or plasma aspartate aminotransfera se measurement (enzymatic activity/volume) 177 U/L 5-34 Serum or plasma alanine aminotransferase measurement (enzymatic activity/volume) 274 U/L 0-55 Serum or plasma protein measurement (mass/volume) 8.3 g/dL 6.4-8.2 Serum or plasma albumin measurement (mass/volume) 2.9 g/dL 3.2-4.5 CALCIUM CORRECTED 10.1 mg/dL 8.5-10.1 Capillary blood glucose measurement by g lucometer (mass/volume) - 02/22/20 11:07 Capillary blood glucose measurement by glucometer (mas s/volume) 364 mg/dL 70-110 Capillary blood glucose measurement by g lucometer (mass/volume) - 02/22/20 16:20 Capillary blood glucose measurement by glucometer (mas s/volume) 347 mg/dL 70-110 Capillary blood glucose measurement by g lucometer (mass/volume) - 02/22/20 19:27 Capillary blood glucose measurement by glucometer (mas s/volume) 352 mg/dL 70-110 Capillary blood glucose measurement by g lucometer (mass/volume) - 02/23/20 05:15 Capillary blood glucose measurement by glucometer (mas s/volume) 331 mg/dL 70-110 Capillary blood glucose measurement by g lucometer (mass/volume) - 02/23/20 10:36 Capillary blood glucose measurement by glucometer (mas s/volume) 443 mg/dL 70-110 Capillary blood glucose measurement by g lucometer (mass/volume) - 02/23/20 15:49 Capillary blood glucose measurement by glucometer (mas s/volume) 417 mg/dL 70-110 Capillary blood glucose measurement by g lucometer (mass/volume) - 02/23/20 20:45 Capillary blood glucose measurement by glucometer (mas s/volume) 296 mg/dL 70-110 Complete blood count (CBC) with automate d white blood cell (WBC) differential - 02/24/20 05:35 Blood leukocytes automated count (number/volume) 13.5 10*3/uL 4.3-11.0 Blood erythrocytes automated count (number/volume) 4.35 10*6/uL 4.35-5.85 Venous blood hemoglobin measurement (mass/volume) 13.1 g/dL 11.5-16.0 Blood hematocrit (volume fraction) 41 % 35-52 Automated erythrocyte mean corpuscular volume 95 [ foz_us] 80-99 Automated erythrocyte mean corpuscular h emoglobin (mass per erythrocyte) 30 pg 25-34 Automated erythrocyte mean corpuscular h emoglobin concentration measurement (mass/volume) 32 g/dL 32-36 Automated erythrocyte distribution width ratio 15. 2 % 10.0- 14.5 Automated blood platelet count (count/volume) 372 10*3/uL 130-400 Automated blood platelet mean volume measurement 10.8 [foz_us] 7.4-10.4 Automated blood neutrophils/100 leukocytes 85 % 42-75 Automated blood lymphocytes/100 leukocytes 11 % 12-44 Blood monocytes/100 leukocytes 3 % 0-12 Automated blood eosinophils/100 leukocytes 0 % 0-10 Automated blood basophils/100 leukocytes 0 % 0-10 Blood neutrophils automated count (number/volume) 11.5 10*3 1.8-7.8 Blood lymphocytes automated count (number/volume) 1.5 10*3 1.0-4.0 Blood monocytes automated count (number/volume) 0. 5 10*3 0.0-1.0 Automated eosinophil count 0.0 10*3/uL 0 .0-0.3 Automated blood basophil count (count/volume) 0.0 10*3/uL 0.0-0.1 Comprehensive metabolic panel - 02/24/20 05:35 Serum or plasma sodium measurement (moles/volume) 138 mmol/L 135-145 Serum or plasma potassium measurement (moles/volume) 4.0 mmol/L 3.6-5.0 Serum or plasma chloride measurement (moles/volume) 94 mmol/L 98-107 Carbon dioxide 34 mmol/L 21-32 Serum or plasma anion gap determination (moles/volume) 10 mmol/L 5-14 Serum or plasma urea nitrogen measurement (mass/volume ) 42 mg/dL 7-18 Serum or plasma creatinine measurement (mass/volume) 0.77 mg/dL 0.60-1.30 Serum or plasma urea nitrogen/creatinine mass ratio 55 NRG Serum or plasma creatinine measurement w ith calculation of estimated glomerular filtration rate > NRG Serum or plasma glucose measurement (mass/volume) 262 mg/dL 70-105 Serum or plasma calcium measurement (mass/volume) 9.0 mg/dL 8.5-10.1 Serum or plasma total bilirubin measurement (mass/volu me) 0.4 mg/dL 0.1-1.0 Serum or plasma alkaline phosphatase wesley surement (enzymatic activity/volume) 260 U/L 40-136 Serum or plasma aspartate aminotransfera se measurement (enzymatic activity/volume) 71 U/L 5-34 Serum or plasma alanine aminotransferase measurement (enzymatic activity/volume) 203 U/L 0-55 Serum or plasma protein measurement (mass/volume) 8.1 g/dL 6.4-8.2 Serum or plasma albumin measurement (mass/volume) 3.0 g/dL 3.2-4.5 CALCIUM CORRECTED 9.8 mg/dL 8.5-10.1 Capillary blood glucose measurement by g lucometer (mass/volume) - 02/24/20 05:55 Capillary blood glucose measurement by glucometer (mas s/volume) 278 mg/dL 70-110 Capillary blood glucose measurement by g lucometer (mass/volume) - 02/24/20 11:30 Capillary blood glucose measurement by glucometer (mas s/volume) 261 mg/dL 70-110 Capillary blood glucose measurement by g lucometer (mass/volume) - 02/24/20 17:24 Capillary blood glucose measurement by glucometer (mas s/volume) 336 mg/dL 70-110 Capillary blood glucose measurement by g lucometer (mass/volume) - 02/24/20 20:42 Capillary blood glucose measurement by glucometer (mas s/volume) 219 mg/dL 70-110 Capillary blood glucose measurement by g lucometer (mass/volume) - 02/25/20 05:33 Capillary blood glucose measurement by glucometer (mas s/volume) 201 mg/dL 70-110 Complete blood count (CBC) with automate d white blood cell (WBC) differential - 02/25/20 10:05 Blood leukocytes automated count (number/volume) 11.7 10*3/uL 4.3-11.0 Blood erythrocytes automated count (number/volume) 4.46 10*6/uL 4.35-5.85 Venous blood hemoglobin measurement (mass/volume) 13.2 g/dL 11.5-16.0 Blood hematocrit (volume fraction) 43 % 35-52 Automated erythrocyte mean corpuscular volume 95 [ foz_us] 80-99 Automated erythrocyte mean corpuscular h emoglobin (mass per erythrocyte) 30 pg 25-34 Automated erythrocyte mean corpuscular h emoglobin concentration measurement (mass/volume) 31 g/dL 32-36 Automated erythrocyte distribution width ratio 15. 3 % 10.0- 14.5 Automated blood platelet count (count/volume) 388 10*3/uL 130-400 Automated blood platelet mean volume measurement 10.5 [foz_us] 7.4-10.4 Automated blood neutrophils/100 leukocytes 81 % 42-75 Automated blood lymphocytes/100 leukocytes 14 % 12-44 Blood monocytes/100 leukocytes 4 % 0-12 Automated blood eosinophils/100 leukocytes 1 % 0-10 Automated blood basophils/100 leukocytes 0 % 0-10 Blood neutrophils automated count (number/volume) 9.5 10*3 1.8-7.8 Blood lymphocytes automated count (number/volume) 1.7 10*3 1.0-4.0 Blood monocytes automated count (number/volume) 0. 4 10*3 0.0-1.0 Automated eosinophil count 0.1 10*3/uL 0 .0-0.3 Automated blood basophil count (count/volume) 0.0 10*3/uL 0.0-0.1 Comprehensive metabolic panel - 02/25/20 10:05 Serum or plasma sodium measurement (moles/volume) 137 mmol/L 135-145 Serum or plasma potassium measurement (moles/volume) 3.2 mmol/L 3.6-5.0 Serum or plasma chloride measurement (moles/volume) 89 mmol/L 98-107 Carbon dioxide 38 mmol/L 21-32 Serum or plasma anion gap determination (moles/volume) 10 mmol/L 5-14 Serum or plasma urea nitrogen measurement (mass/volume ) 41 mg/dL 7-18 Serum or plasma creatinine measurement (mass/volume) 0.90 mg/dL 0.60-1.30 Serum or plasma urea nitrogen/creatinine mass ratio 46 NRG Serum or plasma creatinine measurement w ith calculation of estimated glomerular filtration rate > NRG Serum or plasma glucose measurement (mass/volume) 316 mg/dL 70-105 Serum or plasma calcium measurement (mass/volume) 9.0 mg/dL 8.5-10.1 Serum or plasma total bilirubin measurement (mass/volu me) 0.4 mg/dL 0.1-1.0 Serum or plasma alkaline phosphatase wesley surement (enzymatic activity/volume) 252 U/L 40-136 Serum or plasma aspartate aminotransfera se measurement (enzymatic activity/volume) 49 U/L 5-34 Serum or plasma alanine aminotransferase measurement (enzymatic activity/volume) 157 U/L 0-55 Serum or plasma protein measurement (mass/volume) 8.1 g/dL 6.4-8.2 Serum or plasma albumin measurement (mass/volume) 3.1 g/dL 3.2-4.5 CALCIUM CORRECTED 9.7 mg/dL 8.5-10.1 Capillary blood glucose measurement by g lucometer (mass/volume) - 02/25/20 11:22 Capillary blood glucose measurement by glucometer (mas s/volume) 302 mg/dL 70-110 Encounters ACCT No. Visit Date/Time Discharge Status Pt. Type Provider Facility Loc./Unit Complaint [id number] 02/14/2020 13:13:00 17:11:00 DIS Emergency MADELINE BENÍTEZ MD [facility] ER FS CONSTIPATION [id number] 12/14/2019 14:11:00 15:05:00 DIS Outpatient KEYSHA KINGSLEY MD [facility] REHAB R LEG LYMPHEDEMA [id number] 01/16/2020 16:31:00 20:37:00 DIS Emergency MADELINE WOLFF DO [facility] ER FS SOA, HIGH BP, LOW O2 [id number] 11/11/2019 11:51:00 14:00:00 DIS Outpatient EDUARDO FISHER MD [facility] REHAB R LEG LYMPHEDEMA [id number] 11/30/2019 13:07:00 23:59:59 CLS Outpatient EDUARDO FISHER MD [facility] WOUNDCARE [id number] 11/16/2019 13:29:00 23:59:59 CLS Outpatient EDUARDO FISHER MD [facility] WOUNDCARE [id number] 11/09/2019 13:32:00 23:59:59 CLS Outpatient EDUARDO FISHER MD [facility] WOUNDCARE [id number] 11/02/2019 13:44:00 23:59:59 CLS Outpatient EDUARDO FISHER MD [facility] WOUNDCARE [id number] 10/26/2019 16:15:00 23:59:59 CLS Outpatient EDUARDO FISHER MD [facility] LAB NON PRESSURE CHRONIC IL CER OF R CALF [id number] 10/26/2019 14:29:00 23:59:59 CLS Outpatient EDUARDO FISHER MD [facility] WOUNDCARE [id number] 02/17/2020 21:40:[address] Inpatient KATELYN JENSEN DO [facility] 4TH DYSPNEA;HYPOXIA;PNEUMONIA;R/ O COVID 19 [id number] 02/15/2020 08:21:00 Document Registration [id number] 02/12/2020 10:23:00 Document Registration
--- NOTE | 2020-02-25 14:56 | Occupational Therapy Eval ---
OT Evaluation-General/PLF Medical Diagnosis Admission Date Feb 25, 2020 at 13:20 Medical Diagnosis: Debility; PNA/ osteomyelitis Onset Date: Feb 25, 2020 Therapy Diagnosis Therapy Diagnosis: Decreased ADL status Precautions Precautions/Isolations: Standard Precautions Weight Bear Status Pt paralyzed, has mm spasms only movement from LE Referral Physician: Lisa Sheffield Referral Reason: Activity Tolerance, Self Care, Evaluation/Treatment, Strengthening/ROM Medical History Pertinent Medical History: DM, GERD, HTN Additional Medical History acute osteomyelitis of spine (paraplegia at T9 level). Current History Pt states 3-4 ER visits which lead to SNF placement for 2 days prior to [facility] hospitalization. Reviewed History: Yes Social History Home: Single Level Current Living Status: Other Family (nephew) Entry Into Home: Level Entry Steps Into Home: 2 (on back, making ramp.) ADL-Prior Level of Function SCALE: Activities may be completed with or without assistive devices. 1-Rgphuqulpu-ymcwmua completes the activity by him/herself with no assistance from a helper. 5-Set-up or Clean-up Assistance-helper sets up or cleans up; patient completes activity. [place] assists only prior to or following the activity. 4-Supervision or Touching Assistance-helper provides verbal cues and/or touching/steadying and/or contact guard assistance as patient completes activity. Assistance may be provided throughout the activity or intermittently. 3-Partial/Moderate Assistance-helper does LESS THAN HALF the effort. [place] lifts, holds or supports trunk or limbs, but provides less than half the effort. 2-Substantial/Maximal Assistance-helper does MORE THAN HALF the effort. [place] lifts or holds trunk or limbs and provides more than half the effort. 0-Knffvyjes-snkwyk does ALL the effort. Patient does none of the effort to complete the activity. Or, the assistance of 2 or more helpers is required for the patient to complete the activity. If activity was not attempted, code reason: 7-Patient Refused. 9-Not Applicable-not attempted and the patient did not perform the activity before the current illness, exacerbation or injury. 10-Not Attempted due to Environmental Limitations-(lack of equipment, weather restraints, etc.). 88-Not Attempted due to Medical Conditions or Safety Concerns. ADL PLOF Comments Pt states IND at home prior to ER visits. Pt states she was walking with FWW and completing with IND. Self Care: Independent Functional Cognition: Independent DME/Equipment: Bath Chair, Shower Occupation: retired. Drive Self: No OT Current Status Subjective Pt seen on 4th floor. Pt assisted to ARU by PT/ OT. Pt agreeable to OT/ PT co- treat. Pt states pain in mid-back, states chronic pain. PT eval: 3543-1995 (10) OT eval: 3991-0462 (10) Co-treat: 5061-3588 (80) Co-treat required due to pt's decreased ADL status, dependency in transfers, decreased LE strength/ movement, and requirement for two skilled therapists for safety. Mental Status/Objective Patient Orientation: Person, Place, Time, Situation, Normal For Age Attachments: Oxygen (3L) Current Glasses/Contacts: Yes Hearing Aids: No Dentures/Partials: No Hand Dominance: Right Upper Extremity ROM WFL BUE Upper Extremity Coordination WFL BUE Upper Extremity Sensation WFL BUE Diminished BLE (states tingling at times, decreased soft touch) Upper Extremity Strength WFL BUE, 4-/5 ADL-Treatment Eating (QC): 6 (IND) Oral Hygiene (QC): 6 (IND) Shower/Bathe Self (QC): 2 (Max A (TD shower transfer)) Upper Body Dressing (QC): 3 (mod A gown donning.) Lower Body Dressing (QC): 1 (TD) On/Off Footwear (QC): 1 (TD) Toileting Hygiene (QC): 1 (TD) Other Treatments Pt brought down in recliner chair.Pt denies use of 02 at home, states first time wearing (3L). Pt educated on OT/ PT and ARU role/ expectations. Pt completes MMT/ ROM. Pt has been utilizing laura lift for functional transfers. Pt brought to room, completes laura to shower chair and rolled to shower room. Pt completes showering tasks with max A (pt able to complete UB/ hair. Pt rolled back to room, laura utilized for bed mob. Pt rolls with max Ax2 side to side for drying and bottom hygiene (TD). Pt requires TD for jonny hygiene, BM noted in front. Nursing notified/ present for bottom check and skin integrity. Pt educated on theraband exercises while in bed: pt return demonstrates back flies, triceps, horizontal ab/ adduction, forward shoulder flexions, and abdominal breathing. Pt educated to complete 3-4x per day and sit upright throughout the day. Pt nods in agreement. All needs met, call light in reach. Pt left in bed. Education OT Patient Education: Correct positioning, Exercise program, Home exercise program, Modified ADL techniques, Progress toward Goal/Update tx plan, Purpose of tx/functional activities, Rehab process, Safety issues, Transfer techniques Teaching Recipient: Patient Teaching Methods: Demonstration, Discussion Response to Teaching: Verbalize Understanding, Return Demonstration, Reinforcement Needed OT Short Term Goals Short Term Goals Time Frame: Mar 03, 2020 Toileting hygiene: 2 Shower/bathe self: 3 OT Group Director Experience Goals Assisted Goals Time Frame: Mar 17, 2020 Eating (QC): 6 Oral Hygiene (QC): 6 Toileting Hygiene (QC): 4 Shower/Bathe Self (QC): 4 Upper Body Dressing (QC): 5 Lower Body Dressing (QC): 3 On/Off Footwear (QC): 6 Additional Goals: 1-Demonstrate ADL Tasks, 2-Verbalize Understanding, 3- ImproveStrength/Regulo 1=Demonstrate adherence to instructed precautions during ADL tasks. 2=Patient will verbalize/demonstrate understanding of assistive devices/modifications for ADL. 3=Patient will improve strength/tolerance for activity to enable patient to perform ADL's. OT Education/Plan Problem List/Assessment Assessment: Decreased Activ Tolerance, Decreased UE Strength, Dependent Transfers, Edema, Impaired Bed Mobility, Impaired I ADL's, Impaired Self-Care Skills Discharge Recommendations Plan/Recommendations: Continue POC Therapy Discharge Recommendati: 24 Hour Supervision Treatment Plan/Plan of Care Treatment,Training & Education: Yes Patient would benefit from OT for education, treatment and training to promote independence in ADL's, mobility, safety and/or upper extremity function for ADL 's. Plan of Care: ADL Retraining, Caregiver Training, Concurrent Therapy, Functional Mobility, Group Exercise/Act as Ind, UE Funct Exercise/Act, W/C Management Training Treatment Duration: Mar 10, 2020 Frequency: At least 5 of 7 days/Wk (IRF) Estimated Hrs Per Day: 1.5 hours per day Agreement: Yes Rehab Potential: Poor Time/GCodes Start Time: 13:25 Stop Time: 15:00 Total Time Billed (hr/min): 95 Billed Treatment Time 1, EVM (10) 1, ADL 4, EX (80) PT eval: 7782-8336 (10) OT eval: 5379-8428 (10) Co-treat: 3412-2201 (80) Co-treat required due to pt's decreased ADL status, dependency in transfers, decreased LE strength/ movement, and requirement for two skilled therapists for safety. CIELO PEPPER OTR Feb 25, 2020 14:56
--- NOTE | 2020-02-25 14:59 | Physical Therapy Evaluation ---
PT Evaluation-General Medical Diagnosis Admission Date Feb 25, 2020 at 13:20 Medical Diagnosis: Debility; PNA/ osteomyelitis Onset Date: Feb 17, 2020 Therapy Diagnosis Therapy Diagnosis: impaired mobility, strength, endurance Referral Physician: Lisa Sheffield DO Reason for Referral: Evaluation/Treatment Medical History Pertinent Medical History: DM, GERD, HTN Additional Medical History gastric bypass, cholecystectomy, hyperlipidemia, morbid obesity, restless leg syndrome, anxiety, depression Current History Pt was seen in the ED at [place] on 02/11, 02/12, and 02/13 for constipation, back pain, and parasthesia respectively. She was able to ambulate into the ED on the and , but by the required mechanical lift to transfer. She was sent to a NH in [place] where she spent 2 days and then transferred to [place] due to dyspnea. While in the NH she was a laura lift for all mobility. She has not been able to perform any lower extremity movement since her ED visit on 02/12. Reviewed History: Yes Social History Home: Single Level Current Living Status: Other Family Entry Into Home: Level Entry Prior Prior Level of Function SCALE: Activities may be completed with or without assistive devices. 8-Xyuxzagyqq-bzalgfb completes the activity by him/herself with no assistance from a helper. 5-Set-up or Clean-up Assistance-helper sets up or cleans up; patient completes activity. [place] assists only prior to or following the activity. 4-Supervision or Touching Assistance-helper provides verbal cues and/or touching/steadying and/or contact guard assistance as patient completes activity. Assistance may be provided throughout the activity or intermittently. 3-Partial/Moderate Assistance-helper does LESS THAN HALF the effort. [place] lifts, holds or supports trunk or limbs, but provides less than half the effort. 2-Substantial/Maximal Assistance-helper does MORE THAN HALF the effort. [place] lifts or holds trunk or limbs and provides more than half the effort. 8-Zmojqbbpx-cjxfcq does ALL the effort. Patient does none of the effort to complete the activity. Or, the assistance of 2 or more helpers is required for the patient to complete the activity. If activity was not attempted, code reason: 7-Patient Refused. 9-Not Applicable-not attempted and the patient did not perform the activity before the current illness, exacerbation or injury. 10-Not Attempted due to Environmental Limitations-(lack of equipment, weather restraints, etc.). 88-Not Attempted due to Medical Conditions or Safety Concerns. Bed Mobility: 6 Transfers (B,C,W/C): 6 Gait: 6 Indoor Mobility (Ambulation): Independent Prior Devices Use: Walker PT Evaluation-Current Subjective Patient in recliner pre tx, agrees to PT, has no complaints of pain at rest. Gregory khadijah is going down to rehab, will be co-treating with OT after evaluation due to poor patient mobility, strength, endurance, inability to move BLE, the need to coordinate UE and LE during activity. Pt/Family Goals "to be able to go home" Objective Patient Orientation: Person, Place, Situation Attachments: White Catheter ROM/Strength ROM Lower Extremities Limited generally due to morbid obesity and right ankle barely can achieve neutral dorsiflexion with manual assist. Strength Lower Extremities 0/5 strength in both lower extremities. Not even a trace contraction. Neuromuscular (Tone, Coordination, Reflexes) No increased tone. Sensory Hearing: Functional Sensation Right Lower Extremit: Impaired Sensation Left Lower Extremity: Impaired Sensation Lower Extremities No light touch sensation in either leg. Transfers Roll Left to Right (QC): 1 Sit to Lying (QC): 1 Lying to Sitting/Side of Bed(Q: 1 Sit to Stand (QC): 88 Chair/Kjl-oy-Snmhj Xfer(QC): 1 Toilet Transfer (QC): 88 Car Transfer (QC): 88 Patient dependent for bed mobility and transfers. Patient uses a laura for transfers. She is not able to assist much with her arms due to weakness and morbid obesity. Gait Does the Patient Walk?: No and Walking Goal NOT indicated Walk 10 feet (QC): 88 Walk 50 ft with 2 Turns(QC): 88 Walk 150 ft (QC): 88 Walking 10ft/uneven surface-QC: 88 Wheelchair Training Does the Pt Use a Wheelchair?: No Wheel 50 ft with 2 turns (QC): 88 Wheel 150 ft (QC): 88 Stairs 1 Step (curb) (QC): 88 4 Steps (QC): 88 12 Steps (QC): 88 Balance Sitting Static: Poor Sitting Dynamic: Poor Picking up an Object (QC): 88 Treatment Patient was hoyered from recliner to shower chair, taken to shower, bathed, taken back to room, transferred to bed, dried, cleaned remaining, groomed, BLE PROM in all planes. PT performed transfers, bed mobility, assist with positioning during bathing, LE ROM. OT performed bathing, dressing, cleaning, assist with transfers. Assessment/Needs Patient has impaired mobility, strength, endurance, no movement in her legs. She would be able to propel a power chair but we don't have one big enough. Rehab Potential: Poor PT Short Term Goals Short Term Goals Time Frame: Mar 03, 2020 Roll Left & Right: 2 PT Assisted Goals Manager Consumer Goals PT Assisted Goals Time Frame: Mar 17, 2020 Roll Left & Right (QC): 2 Sit to Lying (QC): 88 Lying-Sitting on Side/Bed(QC): 88 Sit to Stand (QC): 88 Chair/Bjp-fy-Sxhgz Xfer(QC): 88 Toilet Transfer (QC): 88 Car Transfer (QC): 88 Does the Patient Walk: No and Walking Goal NOT indicated Walk 10 feet (QC): 88 Walk 50ft with 2 Turns (QC): 88 Walk 150 ft (QC): 88 Walking 10ft on Uneven Surface: 88 1 Step (curb) (QC): 88 4 Steps (QC): 88 12 Steps (QC): 88 Picking up an Object (QC): 88 Wheel 50 feet with 2 turns (QC: 4 Type: Motorized Wheel 150 feet: 4 Type: Motorized PT Plan Problem List Problem List: Activity Tolerance, Functional Strength, Safety, Balance, Gait, Transfer, Bed Mobility, ROM Treatment/Plan Treatment Plan: Continue Plan of Care Treatment Plan: Bed Mobility, Education, Functional Activity Regulo, Functional Strength, Group Therapy, Safety, Therapeutic Exercise, Transfers Treatment Duration: Mar 17, 2020 Frequency: At least 5 of 7 days/Wk (IRF) Estimated Hrs Per Day: 1.5 hours per day Patient and/or Family Agrees t: Yes Safety Risks/Education Patient Education: Transfer Techniques, Correct Positioning, Safety Issues Teaching Recipient: Patient Teaching Methods: Demonstration, Discussion Response to Teaching: Reinforcement Needed Discharge Recommendations Plan Patient will perform bed mobility and transfer training, balance and endurance training, functional strengthening, WC mobility, and education, to improve functional mobility and independence at home. Therapy Discharge Recommendati: Other, See Comments (skilled nursing) Time/GCodes Time In: 1315 Time Out: 1455 Total Billed Treatment Time: 90 Total Billed Treatment 1 visit EVM 10' FA 80' PT eval from [id number], OT eval from [id number], co-treat from [id number]. HIMANSHU MORGAN PT Feb 25, 2020 14:59
[2020-02-25] MEDS ORDERED: polyethylene glycoL POWDER 17 GM (MIRALAX) PACK PO PRN (15:15)
[2020-02-25] MEDS ORDERED: ONDANSETRON 4 MG/2 ML (SDV) Z0FRAN IV PRN (15:15)
[2020-02-25] MEDS ORDERED: ACETAMINOPHEN 325 MG TABLET PO PRN (15:15)
[2020-02-25] MEDS ORDERED: ALPRAZolam 0.25 MG (XANAX) TAB PO PRN (15:15)
[2020-02-25] MEDS ORDERED: MELATONIN 3 MG TABLET PO PRN (15:15)
[2020-02-25] MEDS ORDERED: ANTACID SUSP 30 ML UDC (MYLANTA) PO PRN (15:15)
--- NOTE | 2020-02-25 15:21 | PM&R Post Admission Assessment ---
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 To note she presented to the [facility] ER on 02/11 for back pain lumbar spine revealed no fracture except T11 compression fracture which was chronic and treated for constipation then returned the following day for continued constipation and weakness of her legs which was assessed to be right sided sciatica brought on by severe obesity and then returned back to ER unable to be cared for at home due to morbid obesity and essentially too weak to stand on her legs so she was admitted to [facility] and returned 4 days later with respiratory insufficiency and CT scans revealed the destructive lesion at T9-T10 that is causing the spinal cord injury. Patient will require psych evaluation and management for chronic mental illness flared due to this catastrophic event. DC note 02/17-02/24: Hospital course: patient had a lengthy course after she was admitted for paralysis of legs and back pain and respiratory insufficiency. CT obtained revealing destructive process ( Findings are worrisome for advanced T9- T10 vertebral osteomyelitis and intervertebral discitis with posterior cortical breakthrough. Further characterization with contrast-assisted thoracic spinal MRI recommended as further evaluation. Sequelae of neoplasm less likely but cannot be absolutely excluded). Levaquin initiated but BCx were all negative. Lovenox maintained for DVt PPx. Vapotherm required with IV steroids and eventually she was weaned off Vapotherm after IV diuresis successful for volume overload. Multiple physicians were updated along with Alan Schumacher, Chance, Dany along with 4 multiple attempts to [facility] for transfer which upon review of clouded images Dr Gomez BROWN stated after 1 week of abx there is no possibility of surgical options that would benefit the patient and if MRI could be obtained in the future some sort of re-consultation could be entertained but also the pandemic fo COVID-19 was also relevant in limitations of transfer and consideri ng she could not be transferred to due to severe respiratory failure. Patient was assessed to be a candidate for IRF even if it was only for wheelchair mobility and family expressed intentions to help when she returned home and she was moved to IRF for structured rehab protocol. Patient remains with romero cath and has fecal incontinence. Past Ehasocq-Ztpunn-Holcmp Hx Past Med/Social Hx: Reviewed Nursing Past Med/Soc Hx, Reviewed and Corrections made Patient Social History Marrital Status: single Employed/Student: unemployed Alcohol Use: Denies Use Smoking Status: Never a Smoker 2nd Hand Smoke Exposure: No Recent Foreign Travel: No Contact w/other who traveled: No Recent Hopitalizations: No Recent Infectious Disease Expo: No Immunizations Up To Date Date of Pneumonia Vaccine: Sep 27, 2019 Date of Influenza Vaccine: Sep 27, 2019 Seasonal Allergies Seasonal Allergies: No Past Medical History Surgeries: Gallbladder gastric bypass Respiratory: Sleep Apnea Currently Using CPAP: No Cardiac: Chronic Edema/Swelling, High Cholesterol, Hypertension Neurological: Paralysis, Spinal Cord Injury (02/18/20 destructive T9-T10 lesion presumed infectious osteomyelitis) neurogenic bladder from spinal cord injury romero cath in place Gastrointestinal: Gastroesophageal Reflux Musculoskeletal: Chronic Back Pain Endocrine: Diabetes, Non-Insulin dep Psychosocial: Anxiety, Bipolar, Depression History of Blood Disorders: No Family History Diabetes, Hypertension, Renal Disease Prior Level of Function Bed Mobility: 6 Transfers: 6 Gait: 6 Indoor Mobility (Ambulation): Independent Prior Devices Use: Walker Self Care: Independent Functional Cognition: Independent Occupation: retired. Drive Self: No Current Level of Fuctioning Roll Left to Right: 1 Sit to Lyin Lying to Sitting/Side of Bed: 1 Sit to Stand: 88 Chair/Sig-rr-Xhnol Xfer: 1 Car Transfer: 88 Does the Patient Walk: No and Walking Goal NOT indicated Walk 10 feet: 88 Walk 50 ft with 2 Turns: 88 Walk 150 ft: 88 Walking 10ft on uneven surface: 88 Does the Pt Use a Wheelchair: No Wheel 50 ft with 2 turns: 88 Wheel 150 ft: 88 1 Step (curb): 88 4 Steps: 88 12 Steps: 88 Eatin (IND) Oral Hygiene: 6 (IND) Shower/Bathe Self: 2 (Max A (TD shower transfer)) Upper Body Dressin (mod A gown donning.) Lower Body Dressin (TD) On/Off Footwear: 1 (TD) Toileting Hygiene: 1 (TD) PM&R Allergy/Meds/Data Review Allergies Coded Allergies: adhesive tape (Unverified Allergy, Unknown, 01/16/20) Home Medications Scheduled Aripiprazole (Aripiprazole), 5 MG PO DAILY, (Reported) Atorvastatin Calcium (Atorvastatin Calcium), 40 MG PO DAILY, (Reported) Calcium Carbonate/Vitamin D3 (Calcium 600 + Vit D 200 Tablet), 1 EACH PO DAILY, (Reported) Celecoxib (Celebrex), 400 MG PO DAILY, (Reported) Cholecalciferol (Vitamin D3) (Vitamin D3), 50 MCG PO DAILY, (Reported) Docusate Sodium (Colace), 100 MG PO BID, (Reported) Ergocalciferol (Vitamin D2) (Vitamin D2), 1,250 MCG PO SUN,THUR, (Reported) Gabapentin (Gabapentin), 300 MG PO TID, (Reported) Hydrochlorothiazide (Hydrochlorothiazide), 12.5 MG PO DAILY, (Reported) Ibuprofen (Ibuprofen), 600 MG PO TID, (Reported) Metformin HCl (Metformin HCl), 250 MG PO DAILY, (Reported) Metoprolol Tartrate (Metoprolol Tartrate), 25 MG PO BID, (Reported) Multivitamin (Multivitamins), 1 EACH PO DAILY, (Reported) Omeprazole (Omeprazole), 20 MG PO BID, (Reported) Polyethylene Glycol 3350 (Miralax), 17 GM PO DAILY, (Reported) Potassium Chloride (Potassium Chloride), 20 MEQ PO DAILY, (Reported) Ropinirole HCl (Ropinirole HCl), 1 MG PO HS, (Reported) Thiamine HCl (Vitamin B-1), 250 MG PO DAILY, (Reported) Topiramate (Topiramate), 25 MG PO DAILY, (Reported) Torsemide (Torsemide), 50 MG PO BID, (Reported) Venlafaxine HCl (Venlafaxine HCl), 75 MG PO QID, (Reported) Zonisamide (Zonisamide), 200 MG PO BID, (Reported) Scheduled PRN Alprazolam (Alprazolam), 0.25 MG PO Q8H PRN for ANXIETY, (Reported) Alprazolam (Xanax), 0.5 MG PO HS PRN for ANXIETY, (Reported) Cyclobenzaprine HCl (Cyclobenzaprine HCl), 10 MG PO Q8H PRN for PAIN, (Reported) Discontinued Medications Albuterol Sulfate (Proair Digihaler), 90 MCG IH Q4H Discontinued Reason: No Longer Taking Albuterol Sulfate (Proair Hfa), 2 PUFF IH Q4H Discontinued Reason: No Longer Taking Benzonatate (Tessalon Perle), 100 MG PO TID Discontinued Reason: No Longer Taking Cyclobenzaprine HCl (Cyclobenzaprine HCl), 10 MG PO Q8H PRN for SPASMS Discontinued Reason: Duplicate Order Diazepam (Valium), 10 MG PO TID Discontinued Reason: No Longer Taking Hyoscyamine Sulfate (Levsin-Sl), 0.125 MG SL Q4H Discontinued Reason: No Longer Taking Ibuprofen (Ibuprofen), 800 MG PO Q8H PRN for PAIN-MILD Discontinued Reason: No Longer Taking Prednisone (Prednisone), 60 MG PO DAILY Discontinued Reason: No Longer Taking Current Medications Current Medications Reviewed Review of Systems Constitutional: see HPI, malaise, weakness EENTM: no symptoms reported Respiratory: dyspnea on exertion Cardiovascular: no symptoms reported Gastrointestinal: other (incontinence of stool) Genitourinary: incontinence, other (neurogenic blader) Musculoskeletal: back pain, muscle pain, muscle twitching, muscle weakness Skin: no symptoms reported Psychiatric/Neurological: Anxiety, Depressed, Emotional Problems, Numbness, Weakness (paralysis) Physical Exam Physical Exam Vital Signs Vital Signs - First Documented 02/25/20 13:20 Temp 36.4 Pulse 74 Resp 18 B/P (MAP) 147/88 Pulse Ox 97 O2 Delivery Nasal Cannula O2 Flow Rate 3.00 Capillary Refill : Height, Weight, BMI Height: '" Weight: lbs. oz. kg; 59.90 BMI Method: General Appearance: No Apparent Distress, WD/WN, Chronically ill, Obese Eyes: Bilateral Eye Normal Inspection, Bilateral Eye PERRL HEENT: PERRL/EOMI, Normal ENT Inspection, Pharynx Normal Neck: Full Range of Motion, Normal Inspection, Non Tender, Supple, Carotid Bruit Respiratory: Chest Non Tender, Lungs Clear, Normal Breath Sounds, No Accessory Muscle Use, No Respiratory Distress, Decreased Breath Sounds Cardiovascular: Regular Rate, Rhythm, No Gallop, No JVD, No Murmur, Normal Peripheral Pulses Gastrointestinal: Normal Bowel Sounds, No Organomegaly, No Pulsatile Mass, Non Tender, Soft Back: Normal Inspection, No CVA Tenderness, No Vertebral Tenderness Extremity: Normal Capillary Refill, Normal Inspection, Pedal Edema Neurologic/Psychiatric: Alert, Oriented x3, restaurant lead II-XII Norm as Tested, Depressed Affect, Motor Weakness (T9 and below paralysis) Skin: Normal Color, Warm/Dry Lymphatic: No Adenopathy PM&R Medical Assessment & Plan REHAB/MEDICAL ASSESSMENT AND PLAN: REHAB IMPAIRMENT GROUP: Spinal cord injury at T9-T10 from destructive bone lesion presumed osteomyelitis on Levaquin without surgical option of benefit ETIOLOGIC DIAGNOSIS: Spinal cord injury at T9-T10 from destructive bone lesion presumed osteomyelitis on Levaquin without surgical option of benefit The comorbidities that impact the patients function and/or functional outcome by: New paralysis, emotional problems/mental illness, s/p respiratory failure requiring IV steroids and Vapotherm gastric bypass with vitamin deficiency REHAB PLAN: The patient is being admitted to our comprehensive inpatient rehabilitation facility and can tolerate the intensity of service consisting of at least: 180 minutes of therapy a day, 5 out of 7 days a week Rehab treatment will consist of: PT OT will focus on wheelchair mobility and to help regain ADL independence in order to return home with her family members with more self care help The patient/family has a good understanding of our discharge process and will benefit from an interdisciplinary inpatient rehabilitation program. The patient has potential to make improvement and is in need of at least two of the following multidisciplinary therapies including but not limited to physical, occupational, speech, and prosthetics and orthotics. Additionally the patient will need services from respiratory, nutritional services, wound care, psychology, etc. (Customize this to each patient). Given the patients complex condition and risk of further medical complications, rehabilitation services cannot be safely or effectively provided at a lower level of care such as a care home facility. BARRIERS TO DISCHARGE: Severe and catastrophic spinal injury resulting in new paraplegia ESTIMATED LOS: 14 days DISPOSITION: Home with caregivers RELEVANT CHANGES SINCE PREADMISSION SCREENING: I have compared the patients medical and functional status at the time of the preadmission screening and there are: no changes PROGNOSIS: Fair REHABILITATION GOALS: 1. PT OT will focus on wheelchair mobility and to help regain ADL independence in order to return home with her family members with more self care help All the above goals were reviewed with the patient and he/she is in agreement. By signing this document, I acknowledge that I have personally performed a full physical examination on this patient within 24 hours of admission to this inpatient rehabilitation facility and have determined the patient to be able to tolerate the above course of treatment at an intensive level for a reasonable period of time. I will be completing a detailed individualized Plan of Care for this patient by day #4 of the patients stay based upon the Preadmission Screen, the Post-Admission Evaluation, and the therapy evaluations. Admission Dx/Comorbidities: (1) Paraplegia at T9 level ICD Codes: G82.20 - Paraplegia, unspecified (2) Acute osteomyelitis of spine Status: Acute ICD Codes: M46.20 - Osteomyelitis of vertebra, site unspecified (3) Romero catheter in place ICD Codes: Z96.0 - Presence of urogenital implants (4) Neurogenic bladder ICD Codes: N31.9 - Neuromuscular dysfunction of bladder, unspecified (5) Chronic mental illness ICD Codes: F99 - Mental disorder, not otherwise specified (6) Depression ICD Codes: F32.9 - Major depressive disorder, single episode, unspecified (7) H/O gastric bypass ICD Codes: Z98.84 - Bariatric surgery status (8) Fecal incontinence ICD Codes: R15.9 - Full incontinence of feces (9) Acute respiratory failure with hypoxia Status: Acute ICD Codes: J96.01 - Acute respiratory failure with hypoxia (10) T2DM (type 2 diabetes mellitus) Status: Chronic ICD Codes: E11.9 - Type 2 diabetes mellitus without complications (11) Paresthesia of both legs Status: Acute ICD Codes: R20.2 - Paresthesia of skin (12) RLS (restless legs syndrome) Status: Chronic ICD Codes: G25.81 - Restless legs syndrome (13) Elevated liver function tests Status: Acute ICD Codes: R94.5 - Abnormal results of liver function studies (14) HLD (hyperlipidemia) Status: Chronic ICD Codes: E78.5 - Hyperlipidemia, unspecified (15) HTN (hypertension) Status: Chronic ICD Codes: I10 - Essential (primary) hypertension (16) Morbid obesity Status: Chronic ICD Codes: E66.01 - Morbid (severe) obesity due to excess calories (17) Shortness of breath Status: Acute ICD Codes: R06.02 - Shortness of breath (18) Hypoxia Status: Acute ICD Codes: R09.02 - Hypoxemia Assessment/Plan Assessment and Plan Assess & Plan/Chief Complaint Assessment: (1) Paraplegia at T9 level ICD Codes: G82.20 - Paraplegia, unspecified (2) Acute osteomyelitis of spine Status: Acute ICD Codes: M46.20 - Osteomyelitis of vertebra, site unspecified (3) Romero catheter in place ICD Codes: Z96.0 - Presence of urogenital implants (4) Neurogenic bladder ICD Codes: N31.9 - Neuromuscular dysfunction of bladder, unspecified (5) Chronic mental illness ICD Codes: F99 - Mental disorder, not otherwise specified (6) Depression ICD Codes: F32.9 - Major depressive disorder, single episode, unspecified (7) H/O gastric bypass ICD Codes: Z98.84 - Bariatric surgery status (8) Fecal incontinence ICD Codes: R15.9 - Full incontinence of feces (9) Acute respiratory failure with hypoxia Status: Acute ICD Codes: J96.01 - Acute respiratory failure with hypoxia (10) T2DM (type 2 diabetes mellitus) Status: Chronic ICD Codes: E11.9 - Type 2 diabetes mellitus without complications (11) Paresthesia of both legs Status: Acute ICD Codes: R20.2 - Paresthesia of skin (12) RLS (restless legs syndrome) Status: Chronic ICD Codes: G25.81 - Restless legs syndrome (13) Elevated liver function tests Status: Acute ICD Codes: R94.5 - Abnormal results of liver function studies (14) HLD (hyperlipidemia) Status: Chronic ICD Codes: E78.5 - Hyperlipidemia, unspecified (15) HTN (hypertension) Status: Chronic ICD Codes: I10 - Essential (primary) hypertension (16) Morbid obesity Status: Chronic ICD Codes: E66.01 - Morbid (severe) obesity due to excess calories (17) Shortness of breath Status: Acute ICD Codes: R06.02 - Shortness of breath (18) Hypoxia Status: Acute ICD Codes: R09.02 - Hypoxemia Plan: IRF Wheelchair mobility Increase ADL's in order to return home with caregivers May need psych evaluation BM regimen Neurogenic bladder management KATELYN JENSEN DO Feb 25, 2020 15:21
--- NOTE | 2020-02-25 15:51 | ST Cognitive Linguistic Eval ---
Speech Evaluation-General Medical Diagnosis Debility; PNA/ osteomyelitis Onset Date: Feb 25, 2020 Therapy Diagnosis Therapy Diagnosis: Cognitive-communication Referral Referring Physician: Dr. Sheffield Medical History Pertinent Medical History: DM, GERD, HTN Reviewed History: Yes Social History Current Living Status: Other Family (nephew) Speech PLF-Current Status Prior Level of Function Patient lived at home with her nephew who assisted the patient as needed with daily needs. Subjective Patient was cooperative with the cognitive assessment. Language Eval: Auditory Comprehends Simple Yes/No Ques: Functional Indent/Objects Multiple Fritz: Functional Ident/Pics in Multiple Fritz: Functional Follows 1-Step Commands: Functional Follows Complex Directions: Functional Follows General Conversations: Functional Language Eval: Verbal Language Completes Spontaneous Greeting: Functional Produces Auto, Serial Info: Functional Imitates Simple Words/Phrases: Functional Word Finding: Functional Requests Basic Needs: Functional States Basic Personal Info: Functional Expresses Complex Ideas: Functional Objective Cognitive Domain Attention: WNL Memory: Mild Problem Solving: Functional Executive Functions: WNL Visuospatial Skills: WNL Composite Severity Rating: WNL Clock Drawing Severity Rating: WNL Objective Formal/Standardized Tests [facility] Mental Status ([facility]) Results 27/30, within normal range of function Oral Motor/Speech Production Within Normal Limits Impression The patient is a 54 year old female who was admitted to the ARU due to debility. The patient was given the UMS with a score of 27/30 obtained. Patient does not require further ST services at this time. Speech Patient Assess Expression of Ideas/Wants: Expression (4) Understanding Verbal Content: Understands (4) Brief Interview-Mental Status: Yes Repetition of Three Words: Three (3) Temporal Orientation: Year: Correct (3) Temporal Orientation: Month: Accurate within 5 days(2) Temporal Orientation: Day: Correct (1) Recall : Wear to say "Sock": Yes, no cue required (2) Recall : Color: Yes, no cue required (2) Recall : Bed: Yes,after cueing (1) Memory/Recall Ability: Current season, That he or she is in a hsp/hsp unit Speech-Plan Patient/Family Goals Patient/Family Goals: Patient plans on returning to her prior living arrangement. Treatment Plan Speech Therapy Treatment Plan: Discontinue ST Treatment Duration: Feb 25, 2020 Frequency: 1 time per week Estimated Hrs Per Day: .25 hour per day Rehab Potential: Poor Barriers to Learning: No cognitive deficits, patient has many physical needs Pt/Family Agrees to Plan: Yes Safety Risks/Education Teaching Recipient: Patient Teaching Methods: Discussion Response to Teaching: Verbalize Understanding Education Topics Provided: Patient's safety within her room and communication of wants/needs Time Speech Therapy Time In: 15:30 Speech Therapy Time Out: 15:45 Total Billed Time: 15 Billed Treatment Time 1, MASSIELNDCOMP DIXON Mcbride Feb 25, 2020 15:51
[2020-02-25 16:30] VITALS: BP 138/89
[2020-02-25] MEDS: inSUlin ASPART (NovoLOG) 1 UNIT/0.01 ML (CHARGE PER UNIT) SC SCH ×2 (17:10→20:59)
[2020-02-25] MEDS: LACTOBACILLUS ACIDOPHILUS (PROBIOTIC) CAPSULE PO SCH (17:13)
[2020-02-25] MEDS: LEVOFLOXACIN 750 MG/150 ML IV 150 ML IV SCH (17:43)
[2020-02-25] MEDS: VENlafaxine 75 MG (EFFEXOR) TAB PO SCH ×2 (17:43→20:43)
[2020-02-25] MEDS: RT-ALBUTEROL HFA (PROAIR HFA) 8.5 GM IH SCH ×2 (18:15→23:50)
[2020-02-25] MEDS: methylPREDNISolone 40 MG/ML (Solu-MEDROL) VIAL IV SCH (20:43)
[2020-02-25] MEDS: ARTIFICAL TEARS 0.4 ML UNIT DOSE (REFRESH PLUS) OU SCH (20:43)
[2020-02-25] MEDS: DOCUSATE SODIUM 100 MG (COLACE) CAP PO SCH (20:43)
[2020-02-25] MEDS: meTOprolol TARTRATE 25 MG (LOPRESSOR) TABLET PO SCH (20:44)
[2020-02-25] MEDS: ZONISAMIDE 100 MG CAP (ZONEGRAN) NON-FORMULARY PO SCH (20:44)
[2020-02-25] MEDS: GABAPENTIN 300 MG (NEURONTIN) CAP PO SCH (20:44)
[2020-02-25] MEDS: polyethylene glycoL POWDER 17 GM (MIRALAX) PACK PO SCH (20:44)
[2020-02-25] MEDS: SENNA W/DOCUSATE (SENOKOT S) TABLET PO SCH (20:44)
[2020-02-25] MEDS: SENNOSIDES 8.6 MG (SENOKOT) TAB PO SCH (20:44)
[2020-02-25] MEDS: rOPINIRole 1 MG (REQUIP) TABLET PO SCH (20:44)
[2020-02-25] MEDS: CATHETER FLUSH 10 ML SYR IV SCH (20:45)
[2020-02-25] MEDS: ENOXAPARIN 60 MG/0.6 ML (LOVENOX) SYR SC SCH (20:45)
[2020-02-25] MEDS ORDERED: DOCUSATE SODIUM 100 MG (COLACE) CAP PO SCH (21:00)
--- NOTE | 2020-02-25 23:50 | NUR ---
RT in Ed with code Addendum: 02/25/20 at 2352 by NIA GOLDSTEIN RT Amended: Links added.
[2020-02-26] MEDS: RT-ALBUTEROL HFA (PROAIR HFA) 8.5 GM IH SCH ×6 (01:52→22:06)
[2020-02-26 05:12] VITALS: BP 136/80
[2020-02-26] MEDS: inSUlin ASPART (NovoLOG) 1 UNIT/0.01 ML (CHARGE PER UNIT) SC SCH ×4 (06:12→21:05)
[2020-02-26] MEDS: CATHETER FLUSH 10 ML SYR IV SCH ×3 (06:27→21:20)
[2020-02-26 06:33] LABS: BASOPHILS % (AUTO) 0 % (0-10); EOSINOPHILS # (AUTO) 0.1 10^3/uL (0.0-0.3); EOSINOPHILS % (AUTO) 1 % (0-10); HEMATOCRIT 44 % (35-52); HEMOGLOBIN 13.4 G/DL (11.5-16.0); LYMPHOCYTES # (AUTO) 1.6 X 10^3 (1.0-4.0); LYMPHOCYTES % (AUTO) 15 % (12-44); MEAN CORPUSCULAR HEMOGLOBIN 29 PG (25-34); MEAN CORPUSCULAR HGB CONC 31 G/DL (32-36); MEAN CORPUSCULAR VOLUME 95 FL (80-99); MEAN PLATELET VOLUME 10.7 FL (7.4-10.4); MONOCYTES # (AUTO) 0.5 X 10^3 (0.0-1.0); MONOCYTES % (AUTO) 4 % (0-12); NEUTROPHILS # (AUTO) 9.1 X 10^3 (1.8-7.8); NEUTROPHILS % (AUTO) 80 % (42-75); PLATELET COUNT 372 10^3/uL (130-400); RED CELL DISTRIBUTION WIDTH 15.4 % (10.0-14.5); WHITE BLOOD COUNT 11.3 10^3/uL (4.3-11.0)
[2020-02-26 07:07] LABS: ALANINE AMINOTRANSFERASE 125 U/L (0-55); ALBUMIN 3.1 GM/DL (3.2-4.5); ALKALINE PHOSPHATASE 231 U/L (40-136); BILIRUBIN,TOTAL 0.5 MG/DL (0.1-1.0); BUN/CREATININE RATIO 46; CALCIUM 9.1 MG/DL (8.5-10.1); CARBON DIOXIDE 35 MMOL/L (21-32); CHLORIDE 92 MMOL/L (98-107); CREATININE SERUM 0.79 MG/DL (0.60-1.30); GFR ESTIMATED > 60; GLUCOSE 170 MG/DL (70-105); POTASSIUM 3.3 MMOL/L (3.6-5.0); SODIUM 139 MMOL/L (135-145); TOTAL PROTEIN 7.9 GM/DL (6.4-8.2)
[2020-02-26] MEDS: ARTIFICAL TEARS 0.4 ML UNIT DOSE (REFRESH PLUS) OU SCH ×3 (09:36→21:02)
[2020-02-26] MEDS: LACTOBACILLUS ACIDOPHILUS (PROBIOTIC) CAPSULE PO SCH ×3 (09:36→18:05)
[2020-02-26] MEDS: methylPREDNISolone 40 MG/ML (Solu-MEDROL) VIAL IV SCH ×2 (09:37→21:01)
[2020-02-26] MEDS: VENlafaxine 75 MG (EFFEXOR) TAB PO SCH ×4 (09:37→21:05)
[2020-02-26] MEDS: FUROSEMIDE 40 MG/4 ML INJ (LASIX) IVP SCH (09:37)
[2020-02-26] MEDS: meTOprolol TARTRATE 25 MG (LOPRESSOR) TABLET PO SCH ×2 (09:38→21:03)
[2020-02-26] MEDS: DOCUSATE SODIUM 100 MG (COLACE) CAP PO SCH ×2 (09:38→21:03)
[2020-02-26] MEDS: GABAPENTIN 300 MG (NEURONTIN) CAP PO SCH ×3 (09:39→21:03)
[2020-02-26] MEDS: SENNOSIDES 8.6 MG (SENOKOT) TAB PO SCH ×2 (09:39→21:03)
[2020-02-26] MEDS: SENNA W/DOCUSATE (SENOKOT S) TABLET PO SCH ×2 (09:39→21:03)
[2020-02-26] MEDS: ZONISAMIDE 100 MG CAP (ZONEGRAN) NON-FORMULARY PO SCH ×2 (09:39→21:04)
[2020-02-26] MEDS: ENOXAPARIN 60 MG/0.6 ML (LOVENOX) SYR SC SCH ×2 (09:40→21:05)
[2020-02-26] MEDS: toPIRamate 25 MG (TOPAMAX) TAB PO SCH (09:40)
[2020-02-26] MEDS: polyethylene glycoL POWDER 17 GM (MIRALAX) PACK PO SCH ×2 (10:02→21:16)
--- NOTE | 2020-02-26 11:13 | Physical Therapy Daily Note ---
PT Daily Note-Current Subjective Patient in bed pre tx, has unrated pain "all over", agrees to transfer to recliner. Appearance Patient in recliner post tx with legs elevated, has nurse call, phone, tray, all needs met. Mental Status Patient Orientation: Person, Place, Situation Attachments: White Catheter Transfers SCALE: Activities may be completed with or without assistive devices. 3-Ggciomxgjl-lfayzwy completes the activity by him/herself with no assistance from a helper. 5-Set-up or Clean-up Assistance-helper sets up or cleans up; patient completes activity. [place] assists only prior to or following the activity. 4-Supervision or Touching Assistance-helper provides verbal cues and/or touching/steadying and/or contact guard assistance as patient completes activity. Assistance may be provided throughout the activity or intermittently. 3-Partial/Moderate Assistance-helper does LESS THAN HALF the effort. [place] lifts, holds or supports trunk or limbs, but provides less than half the effort. 2-Substantial/Maximal Assistance-helper does MORE THAN HALF the effort. [place] lifts or holds trunk or limbs and provides more than half the effort. 4-Bllkehtue-stzyle does ALL the effort. Patient does none of the effort to complete the activity. Or, the assistance of 2 or more helpers is required for the patient to complete the activity. If activity was not attempted, code reason: 7-Patient Refused. 9-Not Applicable-not attempted and the patient did not perform the activity before the current illness, exacerbation or injury. 10-Not Attempted due to Environmental Limitations-(lack of equipment, weather restraints, etc.). 88-Not Attempted due to Medical Conditions or Safety Concerns. Roll Left & Right (QC): 3 Chair/Gzn-bx-Spkhf Xfer(QC): 1 Patient is able to assist some with rolling (mod assist) from side to side for sling placement, transferred with ceiling laura to recliner. Treatments transfer to recliner Assessment Current Status: Poor Progress dependent for transfer but was able to help some with rolling her upper body, cannot help with rolling with legs PT Short Term Goals Short Term Goals Time Frame: Mar 03, 2020 Roll Left & Right: 2 PT Desulphurizer Operator Goals Desulphurizer Operator Goals PT Mcc Goals Time Frame: Mar 17, 2020 Roll Left & Right (QC): 2 Sit to Lying (QC): 88 Lying-Sitting on Side/Bed(QC): 88 Sit to Stand (QC): 88 Chair/Lpy-rq-Twnrd Xfer(QC): 88 Toilet Transfer (QC): 88 Car Transfer (QC): 88 Does the Patient Walk: No and Walking Goal NOT indicated Walk 10 feet (QC): 88 Walk 50ft with 2 Turns (QC): 88 Walk 150 ft (QC): 88 Walking 10ft on Uneven Surface: 88 1 Step (curb) (QC): 88 4 Steps (QC): 88 12 Steps (QC): 88 Picking up an Object (QC): 88 Wheel 50 feet with 2 turns (QC: 4 Type: Motorized Wheel 150 feet: 4 Type: Motorized PT Plan Problem List Problem List: Activity Tolerance, Functional Strength, Safety, Balance, Gait, Transfer, Bed Mobility, ROM Treatment/Plan Treatment Plan: Continue Plan of Care Treatment Plan: Bed Mobility, Education, Functional Activity Regulo, Functional Strength, Group Therapy, Safety, Therapeutic Exercise, Transfers Treatment Duration: Mar 17, 2020 Frequency: At least 5 of 7 days/Wk (IRF) Estimated Hrs Per Day: 1.5 hours per day Patient and/or Family Agrees t: Yes Safety Risks/Education Patient Education: Correct Positioning, Safety Issues Teaching Recipient: Patient Teaching Methods: Demonstration, Discussion Response to Teaching: Reinforcement Needed Time/GCodes Time In: 1100 Time Out: 1110 Total Billed Treatment Time: 10 Total Billed Treatment 1 visit FA HIMANSHU GREGORY PT Feb 26, 2020 11:13
--- NOTE | 2020-02-26 11:16 | PM&R Progress Note ---
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 Mental illness will delay recovery so will consult them Friday K+ 3.2 so will add supplement since she still receives IV Lasix and adjusted that to once daily now and will wean further ultimately Blurred vision will be helped with steroid wean now 40mg IV Q 12hours Sugars are improving with decreased steroids Levaquin maintained along with probiotic Checked meds and labs Conferred wtih RN Reviewed therapy notes Review of Systems Gastrointestinal: Diarrhea Genitourinary: Incontinence Objective Exam Vital Signs Vital Signs Date Time Temp Pulse Resp B/P (MAP) Pulse Ox O2 Delivery O2 Flow Rate FiO2 02/26/20 10:30 94 Nasal Cannula 3.00 02/26/20 05:12 36.0 57 18 136/80 (98) Capillary Refill : Less Than 3 Seconds General Appearance: No Apparent Distress, WD/WN, Chronically ill, Obese HEENT: PERRL/EOMI, Normal ENT Inspection, Pharynx Normal Neck: Full Range of Motion, Normal Inspection, Non Tender, Supple, Carotid Bruit Respiratory: Chest Non Tender, Lungs Clear, Normal Breath Sounds, No Accessory Muscle Use, No Respiratory Distress, Decreased Breath Sounds Cardiovascular: Regular Rate, Rhythm, No Gallop, No JVD, No Murmur, Normal Peripheral Pulses Gastrointestinal: Normal Bowel Sounds, No Organomegaly, No Pulsatile Mass, Non Tender, Soft Back: Normal Inspection, No CVA Tenderness, No Vertebral Tenderness Extremity: Normal Capillary Refill, Normal Inspection, Pedal Edema Neurologic/Psychiatric: Alert, Oriented x3, lip and gate builder II-XII Norm as Tested, Depressed Affect, Motor Weakness (T9 and below paralysis) Skin: Normal Color, Warm/Dry Lymphatic: No Adenopathy Results/Procedures Lab Laboratory Tests 02/26/20 06:10 Patient resulted labs reviewed. FIM Transfers Therapy Code Descriptions/Definitions Functional [place] Measure: 0=Not Assessed/NA 4=Minimal Assistance 1=Total Assistance 5=Supervision or Setup 2=Maximal Assistance 6=Modified [place] 3=Moderate Assistance 7=Complete IndependenceSCALE: Activities may be completed with or without assistive devices. 8-Gpigorhvvc-jhjlnho completes the activity by him/herself with no assistance from a helper. 5-Set-up or Clean-up Assistance-helper sets up or cleans up; patient completes activity. [place] assists only prior to or following the activity. 4-Supervision or Touching Assistance-helper provides verbal cues and/or touching/steadying and/or contact guard assistance as patient completes activity. Assistance may be provided throughout the activity or intermittently. 3-Partial/Moderate Assistance-helper does LESS THAN HALF the effort. [place] lifts, holds or supports trunk or limbs, but provides less than half the effort. 2-Substantial/Maximal Assistance-helper does MORE THAN HALF the effort. [place] lifts or holds trunk or limbs and provides more than half the effort. 9-Vhreriuoi-rxtirn does ALL the effort. Patient does none of the effort to complete the activity. Or, the assistance of 2 or more helpers is required for the patient to complete the activity. If activity was not attempted, code reason: 7-Patient Refused. 9-Not Applicable-not attempted and the patient did not perform the activity before the current illness, exacerbation or injury. 10-Not Attempted due to Environmental Limitations-(lack of equipment, weather restraints, etc.). 88-Not Attempted due to Medical Conditions or Safety Concerns. Roll Left to Right (QC): 3 Sit to Lying (QC): 1 Sit to Stand (QC): 88 Chair/Bvv-xa-Manej Xfer(QC): 1 Car Transfer (QC): 88 Gait Training Does the Patient Walk?: No and Walking Goal NOT indicated Walk 10 feet (QC): 88 Walk 50 ft with 2 Turns(QC): 88 Walk 150 ft (QC): 88 Walking 10ft/uneven surface-QC: 88 Wheelchair Training Does the Pt Use a Wheelchair?: No Wheel 50 ft with 2 turns (QC): 88 Wheel 150 ft (QC): 88 Stair Training 1 Step (curb) (QC): 88 4 Steps (QC): 88 12 Steps (QC): 88 ADL-Treatment Eating (QC): 6 (IND) Oral Hygiene (QC): 6 (IND) Shower/Bathe Self (QC): 2 (Max A (TD shower transfer)) Upper Body Dressing (QC): 3 (mod A gown donning.) Lower Body Dressing (QC): 1 (TD) On/Off Footwear (QC): 1 (TD) Toileting Hygiene (QC): 1 (TD) Assessment/Plan Assessment and Plan Assess & Plan/Chief Complaint Assessment: (1) Paraplegia at T9 level ICD Codes: G82.20 - Paraplegia, unspecified (2) Acute osteomyelitis of spine Status: Acute ICD Codes: M46.20 - Osteomyelitis of vertebra, site unspecified (3) White catheter in place ICD Codes: Z96.0 - Presence of urogenital implants (4) Neurogenic bladder ICD Codes: N31.9 - Neuromuscular dysfunction of bladder, unspecified (5) Chronic mental illness ICD Codes: F99 - Mental disorder, not otherwise specified (6) Depression ICD Codes: F32.9 - Major depressive disorder, single episode, unspecified (7) H/O gastric bypass ICD Codes: Z98.84 - Bariatric surgery status (8) Fecal incontinence ICD Codes: R15.9 - Full incontinence of feces (9) Acute respiratory failure with hypoxia Status: Acute ICD Codes: J96.01 - Acute respiratory failure with hypoxia (10) T2DM (type 2 diabetes mellitus) Status: Chronic ICD Codes: E11.9 - Type 2 diabetes mellitus without complications (11) Paresthesia of both legs Status: Acute ICD Codes: R20.2 - Paresthesia of skin (12) RLS (restless legs syndrome) Status: Chronic ICD Codes: G25.81 - Restless legs syndrome (13) Elevated liver function tests Status: Acute ICD Codes: R94.5 - Abnormal results of liver function studies (14) HLD (hyperlipidemia) Status: Chronic ICD Codes: E78.5 - Hyperlipidemia, unspecified (15) HTN (hypertension) Status: Chronic ICD Codes: I10 - Essential (primary) hypertension (16) Morbid obesity Status: Chronic ICD Codes: E66.01 - Morbid (severe) obesity due to excess calories (17) Shortness of breath Status: Acute ICD Codes: R06.02 - Shortness of breath (18) Hypoxia Status: Acute ICD Codes: R09.02 - Hypoxemia Plan: IRF Wheelchair mobility Increase ADL's in order to return home with caregivers May need psych evaluation Friday BM regimen Neurogenic bladder management Pain control Levaquin for osteomyelitis of spine Decreasing steroids (1) Paraplegia at T9 level (2) Acute osteomyelitis of spine Status: Acute (3) White catheter in place (4) Neurogenic bladder (5) Chronic mental illness (6) Depression (7) H/O gastric bypass (8) Fecal incontinence (9) Acute respiratory failure with hypoxia Status: Acute (10) T2DM (type 2 diabetes mellitus) Status: Chronic (11) Paresthesia of both legs Status: Acute (12) RLS (restless legs syndrome) Status: Chronic (13) Elevated liver function tests Status: Acute (14) HLD (hyperlipidemia) Status: Chronic (15) HTN (hypertension) Status: Chronic (16) Morbid obesity Status: Chronic (17) Shortness of breath Status: Acute (18) Hypoxia Status: Acute KATELYN JENSEN DO Feb 26, 2020 11:16
--- NOTE | 2020-02-26 11:16 | Individualized Plan of Care ---
Individualized Plan of Care Rehab Nursing IPOC Order Admission Date Feb 25, 2020 at 13:20 Current Orders Orders Admission Order(Inpt,Obs,Sdc) (02/25/20 13:04) Vital Signs: Per Unit Policy ( 08,16,00 (02/25/20 13:04) Sequential Compression Device Q4H (02/25/20 13:04) Textile Knitter-Inpt Rehab Con (02/25/20 13:04) Rehab Nursing Orders-Ipoc (02/25/20 13:04) Physical Therapy Rehab Orders (02/25/20 13:04) Occupational Therapy Rehab Ord (02/25/20 13:04) Speech Therapy Rehab Orders (02/25/20 13:04) Cbc With Automated Diff (02/26/20 06:00) Comprehensive Metabolic Panel (02/26/20 06:00) Accucheck Achs ACHS (02/25/20 13:04) Precautions (Aru) (02/25/20 13:04) Weekly Weight WEEK (02/25/20 13:04) Rehab-Intensity Of Therapy (02/25/20 13:04) Cho 60g/M 3snack (16-2000 Karel) (02/25/20 Dinner) Initiate Admission Nursing Pro .admission (02/25/20 13:04) Alprazolam Tablet (Xanax Tablet) (02/25/20 13:15) Calcium Carbonate Chew Tablet (Antacid C (02/25/20 13:15) Diphenhydramine Tablet (Benadryl Tablet) (02/25/20 13:15) Docusate Sodium Capsule (Colace Capsule) (02/25/20 21:00) Docusate Sodium Capsule (Colace Capsule) (02/25/20 13:15) Bisacodyl Suppository (Dulcolax Supposit (02/25/20 13:15) Lactulose Oral Solution (Enulose Oral So (02/25/20 13:15) Na Phos/Na Biphos Enema (Fleet Enema Deejay (02/25/20 13:15) Guaifenesin/Codeine Syrup (Robitussin Ac (02/25/20 13:15) Loperamide Tablet (Imodium Tablet) (02/25/20 13:15) Melatonin Tablet (Melatonin Tablet) (02/25/20 13:15) Polyethylene Glycol Powder Pkt (Miralax (02/25/20 21:00) Ondansetron Oral Dissolve Tab (Zofran (02/25/20 13:15) Senna S Tablet (Senokot S Tablet) (02/25/20 21:00) Code/Resuscitation (02/25/20 13:04) Initiate Admission Nursing Pro .admission (02/25/20 13:04) Admission Arrival Bed Request (02/25/20 13:20) Patient Visit (02/25/20 ) Speech Sound Lang Comp (02/25/20 ) Patient Visit (02/25/20 ) Pt Eval Moderate Complexity (02/25/20 ) Functional Activities, Ea 15 (02/25/20 ) Code/Resuscitation (02/25/20 15:15) Catheter(Urinary) Insert & Ass 03,15 (02/25/20 15:15) Oxygen-Administer 07,19 (02/25/20 15:15) Alprazolam Tablet (Xanax Tablet) (02/25/20 15:15) Aripiprazole Tablet (Abilify Tablet) (02/26/20 09:00) Albuterol Inhaler (Proair Hfa) (02/25/20 15:15) Atorvastatin Tablet (Lipitor) (02/26/20 09:00) Diphenhydramine Tablet (Benadryl Tablet) (02/25/20 15:15) Carboxymethylcell Ophth Soln (Refresh Pl (02/25/20 21:00) Docusate Sodium Capsule (Colace Capsule) (02/25/20 21:00) Bisacodyl Suppository (Dulcolax Supposit (02/25/20 15:15) Enoxaparin Injection (Lovenox Injection) (02/25/20 21:00) Furosemide Injection (Lasix Injection) (02/26/20 09:00) Gabapentin Capsule/Tablet (Neurontin Cap (02/25/20 21:00) Levofloxacin 750 Mg/150 Ml Iv (Levaquin (02/25/20 15:15) Melatonin Tablet (Melatonin Tablet) (02/25/20 15:15) Polyethylene Glycol Powder Pkt (Miralax (02/25/20 15:15) Antacid Suspension (Mylanta Suspension (02/25/20 15:15) Insulin Aspart (Novolog) (Novolog (Charg (02/25/20 16:00) Sennosides Tablet (Senokot Tablet) (02/25/20 21:00) Sodium Chloride Flush (Catheter Flush Sy (02/25/20 22:00) Topiramate Tablet (Topamax Tablet) (02/26/20 09:00) Acetaminophen Tablet/Caplet (Tylenol T (02/25/20 15:15) Venlafaxine Immediate Release (Effexor T (02/25/20 17:00) Ondansetron Injection (Zofran Injectio (02/25/20 15:15) Ondansetron Oral Dissolve Tab (Zofran (02/25/20 15:15) Zonisamide (Non-Formulary) (Zonegran (No (02/25/20 21:00) Insulin Determir (Per Unit) (Levemir (Pe (02/25/20 21:00) Metoprolol Tartrate (Ir) Tab (Lopressor (02/25/20 21:00) Oxycodone Immediate Rel Tablet (Oxyir Ta (02/25/20 15:15) Ropinirole Tablet (Requip Tablet) (02/25/20 21:00) Mat Initiate Protocol (02/25/20 15:15) Svn Small Volume Nebulizer (02/25/20 15:15) Methylprednisolone Sod Succ (Solu-Medrol (02/25/20 21:00) Lactobacillus Acidophilus Cap (Acidophil (02/25/20 18:00) Cho 75g/M 0snack (21-2400 Karel) (02/26/20 Breakfast) Request Ot Evaluate & Treat (02/25/20 15:24) Ambulate 08,12,20 (02/25/20 15:24) Sequential Compression Device Q4H (02/25/20 15:24) Dvt/Vte Risk - Notifiy Physici Q4H (02/25/20 15:24) Albuterol Inhaler (Proair Hfa) (02/25/20 18:00) Patient Visit (02/26/20 ) Functional Activities, Ea 15 (02/26/20 ) Potassium Chloride (Tablet) (Klor Con Ta (02/26/20 21:00) Rehab Nursing Orders: Ongoing Assess. of Cognitive Status, Ongoing Assess. of Function Status, Bladder Management, Bladder Scan, Bladder Training, Bowel Management, Bowel Training, Disease Management & Educaiton, DVT Prophylaxis, Fall Prevention, Fluid/Electrolyte/Nutrition Mgmt, Infection Prevention, Medication Management & Education, Management of Risks & Complications, Management of Skin Intergrity, Nutrition Management, Pain Management, Patient/Family Support, Safety Management Intensity of Therapy to be met Patient to be seen: Min.3h per day/5 of 7d PT IPOC Problem List: Activity Tolerance, Functional Strength, Safety, Balance, Gait, Transfer, Bed Mobility, ROM Treatment Plan: Continue Plan of Care Bed Mobility, Education, Functional Activity Regulo, Functional Strength, Group Therapy, Safety, Therapeutic Exercise, Transfers Treatment Duration: Mar 17, 2020 Frequency: At least 5 of 7 days/Wk (IRF) Estimated Hrs Per Day: 1.5 hours per day OT IPOC Problems: Decreased Activ Tolerance, Decreased UE Strength, Dependent Transfers, Edema, Impaired Bed Mobility, Impaired I ADL's, Impaired Self-Care Skills OT Treatment, Training and Edu: Yes Plan of Care: ADL Retraining, Caregiver Training, Concurrent Therapy, Functional Mobility, Group Exercise/Act as Ind, UE Funct Exercise/Act, W/C Management Training Treatment Duration: Mar 10, 2020 Frequency: At least 5 of 7 days/Wk (IRF) Estimated Hrs Per Day: 1.[address] IPOC Speech Therapy Treatment Plan: Discontinue ST Treatment Duration: Feb 25, 2020 Frequency: 1 time per week Estimated Hrs Per Day: .25 hour per day Textile Knitter/Case Mgmt Textile Knitter/Case Managemen: Discharge Planning Dietitian/Solution Consultant Dietitian/Solution Consultant to monitor nutritional status and make changes and/or recommendations as needed and work with speech pathology on dietary upgrades as the occur. Physician IPOC Medical Issues being managed closely and that require the 24 hour availability of a physician: New paralysis due to acute osteomyelitis T9-T10 with neurogenic bladder and fecal incontinence maintained on broad spectrum abx and weaning steroids with recent resp failure at high risk for decompensation Medical Issues: Bowel/Bladder Function, DVT Prophylaxis, Falls Precautions, Fluid/Electrolyte/Nutrition Balance, Infection Protection, Pain Management Brief Synthesis of Preadmission Screen, Post-Admission Evaluation, and Therapy Evaluations: PT OT will focus on increasing wheelchair mobility and increasing independent ADL's due to catastrophic new paraplegia Medical Prognosis: Good Anticipated Length of Stay: 10 days KATELYN JENSEN DO Feb 26, 2020 11:16
[2020-02-26] MEDS: LEVOFLOXACIN 750 MG/150 ML IV 150 ML IV SCH (15:26)
[2020-02-26 16:30] VITALS: BP 139/78
[2020-02-26 18:00] VITALS: BP 120/64
[2020-02-26] MEDS: rOPINIRole 1 MG (REQUIP) TABLET PO SCH (21:03)
[2020-02-26] MEDS: KCL 10 MEQ TAB (MICRO K) PO SCH (21:07)
[2020-02-27] MEDS: RT-ALBUTEROL HFA (PROAIR HFA) 8.5 GM IH SCH ×5 (02:19→17:50)
[2020-02-27 05:42] LABS: BASOPHILS % (AUTO) 0 % (0-10); EOSINOPHILS # (AUTO) 0.1 10^3/uL (0.0-0.3); EOSINOPHILS % (AUTO) 0 % (0-10); HEMATOCRIT 44 % (35-52); HEMOGLOBIN 13.5 G/DL (11.5-16.0); LYMPHOCYTES # (AUTO) 1.4 X 10^3 (1.0-4.0); LYMPHOCYTES % (AUTO) 12 % (12-44); MEAN CORPUSCULAR HEMOGLOBIN 29 PG (25-34); MEAN CORPUSCULAR HGB CONC 31 G/DL (32-36); MEAN CORPUSCULAR VOLUME 95 FL (80-99); MEAN PLATELET VOLUME 10.7 FL (7.4-10.4); MONOCYTES # (AUTO) 0.6 X 10^3 (0.0-1.0); MONOCYTES % (AUTO) 5 % (0-12); NEUTROPHILS # (AUTO) 9.5 X 10^3 (1.8-7.8); NEUTROPHILS % (AUTO) 83 % (42-75); PLATELET COUNT 349 10^3/uL (130-400); RED CELL DISTRIBUTION WIDTH 15.3 % (10.0-14.5); WHITE BLOOD COUNT 11.5 10^3/uL (4.3-11.0)
[2020-02-27 06:00] VITALS: BP 143/84
[2020-02-27 06:06] LABS: ALANINE AMINOTRANSFERASE 97 U/L (0-55); ALBUMIN 3.1 GM/DL (3.2-4.5); ALKALINE PHOSPHATASE 213 U/L (40-136); BILIRUBIN,TOTAL 0.5 MG/DL (0.1-1.0); BUN/CREATININE RATIO 47; CARBON DIOXIDE 33 MMOL/L (21-32); CHLORIDE 93 MMOL/L (98-107); CREATININE SERUM 0.73 MG/DL (0.60-1.30); GFR ESTIMATED > 60; GLUCOSE 198 MG/DL (70-105); POTASSIUM 3.7 MMOL/L (3.6-5.0); SODIUM 137 MMOL/L (135-145); TOTAL PROTEIN 7.7 GM/DL (6.4-8.2)
[2020-02-27] MEDS: CATHETER FLUSH 10 ML SYR IV SCH ×3 (06:14→22:33)
[2020-02-27] MEDS: inSUlin ASPART (NovoLOG) 1 UNIT/0.01 ML (CHARGE PER UNIT) SC SCH ×4 (06:14→20:30)
[2020-02-27] MEDS: ARTIFICAL TEARS 0.4 ML UNIT DOSE (REFRESH PLUS) OU SCH ×3 (09:00→20:13)
[2020-02-27] MEDS: polyethylene glycoL POWDER 17 GM (MIRALAX) PACK PO SCH ×2 (09:00→20:16)
[2020-02-27] MEDS: meTOprolol TARTRATE 25 MG (LOPRESSOR) TABLET PO SCH ×2 (09:02→20:14)
[2020-02-27] MEDS: toPIRamate 25 MG (TOPAMAX) TAB PO SCH (09:02)
[2020-02-27] MEDS: ZONISAMIDE 100 MG CAP (ZONEGRAN) NON-FORMULARY PO SCH ×2 (09:03→20:14)
[2020-02-27] MEDS: GABAPENTIN 300 MG (NEURONTIN) CAP PO SCH ×3 (09:03→20:15)
[2020-02-27] MEDS: KCL 10 MEQ TAB (MICRO K) PO SCH ×2 (09:03→20:13)
[2020-02-27] MEDS: SENNOSIDES 8.6 MG (SENOKOT) TAB PO SCH ×2 (09:03→20:14)
[2020-02-27] MEDS: DOCUSATE SODIUM 100 MG (COLACE) CAP PO SCH ×2 (09:03→20:13)
[2020-02-27] MEDS: SENNA W/DOCUSATE (SENOKOT S) TABLET PO SCH ×2 (09:03→20:15)
[2020-02-27] MEDS: VENlafaxine 75 MG (EFFEXOR) TAB PO SCH ×4 (09:04→20:13)
[2020-02-27] MEDS: LACTOBACILLUS ACIDOPHILUS (PROBIOTIC) CAPSULE PO SCH ×3 (09:04→17:39)
[2020-02-27] MEDS: methylPREDNISolone 40 MG/ML (Solu-MEDROL) VIAL IV SCH ×2 (09:04→20:13)
[2020-02-27] MEDS: FUROSEMIDE 40 MG/4 ML INJ (LASIX) IVP SCH (09:05)
[2020-02-27] MEDS: ENOXAPARIN 60 MG/0.6 ML (LOVENOX) SYR SC SCH ×2 (09:05→20:15)
--- NOTE | 2020-02-27 12:02 | PM&R Progress Note ---
Subjective HPI/CC On Admission Date Seen by Provider: Feb 27, 2020 Time Seen by Provider: 12:00 Subjective/Events-last exam Patient overall doing ok Back pain is increased a bit so will start Baclofen to see if that can be narcotic sparing May need long acting pain med narcotic BM Friday Labs improving Overall she is doing very well since arriving IRF Sugars are improving with decreased steroids Levaquin maintained along with probiotic Checked meds and labs Conferred wtih RN Reviewed therapy notes Review of Systems Musculoskeletal: back pain Neurological: Weakness, Numbness, Incoordination Objective Exam Vital Signs Vital Signs Date Time Temp Pulse Resp B/P (MAP) Pulse Ox O2 Delivery O2 Flow Rate FiO2 02/27/20 18:00 36.2 79 16 109/72 (84) 96 Nasal Cannula 2.00 Capillary Refill : Less Than 3 Seconds General Appearance: No Apparent Distress, WD/WN, Chronically ill, Obese HEENT: PERRL/EOMI, Normal ENT Inspection, Pharynx Normal Neck: Full Range of Motion, Normal Inspection, Non Tender, Supple, Carotid Bruit Respiratory: Chest Non Tender, Lungs Clear, Normal Breath Sounds, No Accessory Muscle Use, No Respiratory Distress, Decreased Breath Sounds Cardiovascular: Regular Rate, Rhythm, No Gallop, No JVD, No Murmur, Normal Peripheral Pulses Gastrointestinal: Normal Bowel Sounds, No Organomegaly, No Pulsatile Mass, Non Tender, Soft Back: Normal Inspection, No CVA Tenderness, No Vertebral Tenderness Extremity: Normal Capillary Refill, Normal Inspection, Pedal Edema Neurologic/Psychiatric: Alert, 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 FIM Transfers Therapy Code Descriptions/Definitions Functional [place] Measure: 0=Not Assessed/NA 4=Minimal Assistance 1=Total Assistance 5=Supervision or Setup 2=Maximal Assistance 6=Modified [place] 3=Moderate Assistance 7=Complete IndependenceSCALE: Activities may be completed with or without assistive devices. 8-Bjjvluiqck-azuufar completes the activity by him/herself with no assistance from a helper. 5-Set-up or Clean-up Assistance-helper sets up or cleans up; patient completes activity. [place] assists only prior to or following the activity. 4-Supervision or Touching Assistance-helper provides verbal cues and/or touching/steadying and/or contact guard assistance as patient completes activity. Assistance may be provided throughout the activity or intermittently. 3-Partial/Moderate Assistance-helper does LESS THAN HALF the effort. [place] lifts, holds or supports trunk or limbs, but provides less than half the effort. 2-Substantial/Maximal Assistance-helper does MORE THAN HALF the effort. [place] l ifts or holds trunk or limbs and provides more than half the effort. 2-Tujixwkds-ainrpv does ALL the effort. Patient does none of the effort to complete the activity. Or, the assistance of 2 or more helpers is required for the patient to complete the activity. If activity was not attempted, code reason: 7-Patient Refused. 9-Not Applicable-not attempted and the patient did not perform the activity before the current illness, exacerbation or injury. 10-Not Attempted due to Environmental Limitations-(lack of equipment, weather restraints, etc.). 88-Not Attempted due to Medical Conditions or Safety Concerns. Roll Left to Right (QC): 3 Sit to Lying (QC): 1 Sit to Stand (QC): 88 Chair/Ihe-hd-Rpvxy Xfer(QC): 1 Car Transfer (QC): 88 Gait Training Does the Patient Walk?: No and Walking Goal NOT indicated Walk 10 feet (QC): 88 Walk 50 ft with 2 Turns(QC): 88 Walk 150 ft (QC): 88 Walking 10ft/uneven surface-QC: 88 Wheelchair Training Does the Pt Use a Wheelchair?: No Wheel 50 ft with 2 turns (QC): 88 Wheel 150 ft (QC): 88 Stair Training 1 Step (curb) (QC): 88 4 Steps (QC): 88 12 Steps (QC): 88 ADL-Treatment Eating (QC): 6 (IND) Oral Hygiene (QC): 6 (IND) Shower/Bathe Self (QC): 2 (Max A (TD shower transfer)) Upper Body Dressing (QC): 3 (mod A gown donning.) Lower Body Dressing (QC): 1 (TD) On/Off Footwear (QC): 1 (TD) Toileting Hygiene (QC): 1 (TD) Assessment/Plan Assessment and Plan Assess & Plan/Chief Complaint Assessment: (1) Paraplegia at T9 level ICD Codes: G82.20 - Paraplegia, unspecified (2) Acute osteomyelitis of spine Status: Acute ICD Codes: M46.20 - Osteomyelitis of vertebra, site unspecified (3) White catheter in place ICD Codes: Z96.0 - Presence of urogenital implants (4) Neurogenic bladder ICD Codes: N31.9 - Neuromuscular dysfunction of bladder, unspecified (5) Chronic mental illness ICD Codes: F99 - Mental disorder, not otherwise specified (6) Depression ICD Codes: F32.9 - Major depressive disorder, single episode, unspecified (7) H/O gastric bypass ICD Codes: Z98.84 - Bariatric surgery status (8) Fecal incontinence ICD Codes: R15.9 - Full incontinence of feces (9) Acute respiratory failure with hypoxia Status: Acute ICD Codes: J96.01 - Acute respiratory failure with hypoxia (10) T2DM (type 2 diabetes mellitus) Status: Chronic ICD Codes: E11.9 - Type 2 diabetes mellitus without complications (11) Paresthesia of both legs Status: Acute ICD Codes: R20.2 - Paresthesia of skin (12) RLS (restless legs syndrome) Status: Chronic ICD Codes: G25.81 - Restless legs syndrome (13) Elevated liver function tests Status: Acute ICD Codes: R94.5 - Abnormal results of liver function studies (14) HLD (hyperlipidemia) Status: Chronic ICD Codes: E78.5 - Hyperlipidemia, unspecified (15) HTN (hypertension) Status: Chronic ICD Codes: I10 - Essential (primary) hypertension (16) Morbid obesity Status: Chronic ICD Codes: E66.01 - Morbid (severe) obesity due to excess calories (17) Shortness of breath Status: Acute ICD Codes: R06.02 - Shortness of breath (18) Hypoxia Status: Acute ICD Codes: R09.02 - Hypoxemia Plan: IRF Wheelchair mobility Increase ADL's in order to return home with caregivers May need psych evaluation Friday? BM regimen Neurogenic bladder management will reach out to Urology form tomorrow consultations Pain control Levaquin for osteomyelitis of spine Decreasing steroids BM regimen (1) Paraplegia at T9 level (2) Acute osteomyelitis of spine Status: Acute (3) White catheter in place (4) Neurogenic bladder (5) Chronic mental illness (6) Depression (7) H/O gastric bypass (8) Fecal incontinence (9) Acute respiratory failure with hypoxia Status: Acute (10) T2DM (type 2 diabetes mellitus) Status: Chronic (11) Paresthesia of both legs Status: Acute (12) RLS (restless legs syndrome) Status: Chronic (13) Elevated liver function tests Status: Acute (14) HLD (hyperlipidemia) Status: Chronic (15) HTN (hypertension) Status: Chronic (16) Morbid obesity Status: Chronic (17) Shortness of breath Status: Acute (18) Hypoxia Status: Acute KATELYN JENSEN DO Feb 27, 2020 12:02
[2020-02-27] MEDS: BACLOFEN 10 MG (LIORESAL) TAB PO PRN ×2 (12:53→19:48)
[2020-02-27] MEDS: LEVOFLOXACIN 750 MG/150 ML IV 150 ML IV SCH (14:45)
[2020-02-27 17:50] VITALS: BP 142/84
[2020-02-27 18:00] VITALS: BP 109/72
[2020-02-27] MEDS: rOPINIRole 1 MG (REQUIP) TABLET PO SCH (20:15)
[2020-02-27] MEDS: RT-ALBUTEROL HFA (PROAIR HFA) 8.5 GM IH PRN (22:14)
[2020-02-28] MEDS: RT-ALBUTEROL HFA (PROAIR HFA) 8.5 GM IH PRN ×2 (02:21→06:49)
[2020-02-28] MEDS: CATHETER FLUSH 10 ML SYR IV SCH ×3 (05:37→21:42)
[2020-02-28] MEDS: BACLOFEN 10 MG (LIORESAL) TAB PO PRN ×2 (05:38→17:11)
[2020-02-28 05:52] VITALS: BP 142/74
[2020-02-28 05:53] LABS: BASOPHILS % (AUTO) 0 % (0-10); EOSINOPHILS # (AUTO) 0.1 10^3/uL (0.0-0.3); EOSINOPHILS % (AUTO) 1 % (0-10); HEMATOCRIT 44 % (35-52); HEMOGLOBIN 13.8 G/DL (11.5-16.0); LYMPHOCYTES # (AUTO) 1.7 X 10^3 (1.0-4.0); LYMPHOCYTES % (AUTO) 14 % (12-44); MEAN CORPUSCULAR HEMOGLOBIN 30 PG (25-34); MEAN CORPUSCULAR HGB CONC 32 G/DL (32-36); MEAN CORPUSCULAR VOLUME 95 FL (80-99); MONOCYTES # (AUTO) 0.7 X 10^3 (0.0-1.0); MONOCYTES % (AUTO) 6 % (0-12); NEUTROPHILS % (AUTO) 79 % (42-75); PLATELET COUNT 352 10^3/uL (130-400); RED CELL DISTRIBUTION WIDTH 15.9 % (10.0-14.5); WHITE BLOOD COUNT 11.5 10^3/uL (4.3-11.0)
[2020-02-28 06:13] LABS: ALANINE AMINOTRANSFERASE 79 U/L (0-55); ALBUMIN 3.1 GM/DL (3.2-4.5); ALKALINE PHOSPHATASE 204 U/L (40-136); BILIRUBIN,TOTAL 0.5 MG/DL (0.1-1.0); BUN/CREATININE RATIO 42; CALCIUM 8.9 MG/DL (8.5-10.1); CARBON DIOXIDE 35 MMOL/L (21-32); CHLORIDE 95 MMOL/L (98-107); CREATININE SERUM 0.73 MG/DL (0.60-1.30); GFR ESTIMATED > 60; GLUCOSE 153 MG/DL (70-105); POTASSIUM 3.6 MMOL/L (3.6-5.0); SODIUM 139 MMOL/L (135-145); TOTAL PROTEIN 7.8 GM/DL (6.4-8.2)
[2020-02-28] MEDS: inSUlin ASPART (NovoLOG) 1 UNIT/0.01 ML (CHARGE PER UNIT) SC SCH ×4 (06:28→21:39)
[2020-02-28 06:56] LABS: ERYTHROCYTE SEDIMENTATION RATE 63 MM/HR (0-30)
[2020-02-28 08:14] VITALS: BP 141/88
[2020-02-28] MEDS: ARTIFICAL TEARS 0.4 ML UNIT DOSE (REFRESH PLUS) OU SCH ×3 (08:15→21:39)
[2020-02-28] MEDS: methylPREDNISolone 40 MG/ML (Solu-MEDROL) VIAL IV SCH (08:16)
[2020-02-28] MEDS: FUROSEMIDE 40 MG/4 ML INJ (LASIX) IVP SCH (08:16)
[2020-02-28] MEDS: GABAPENTIN 300 MG (NEURONTIN) CAP PO SCH ×3 (08:17→21:40)
[2020-02-28] MEDS: ZONISAMIDE 100 MG CAP (ZONEGRAN) NON-FORMULARY PO SCH ×2 (08:17→21:41)
[2020-02-28] MEDS: SENNA W/DOCUSATE (SENOKOT S) TABLET PO SCH ×2 (08:17→21:40)
[2020-02-28] MEDS: VENlafaxine 75 MG (EFFEXOR) TAB PO SCH ×4 (08:17→21:39)
[2020-02-28] MEDS: KCL 10 MEQ TAB (MICRO K) PO SCH ×2 (08:17→21:39)
[2020-02-28] MEDS: LACTOBACILLUS ACIDOPHILUS (PROBIOTIC) CAPSULE PO SCH ×3 (08:17→17:11)
[2020-02-28] MEDS: SENNOSIDES 8.6 MG (SENOKOT) TAB PO SCH ×2 (08:17→21:43)
[2020-02-28] MEDS: meTOprolol TARTRATE 25 MG (LOPRESSOR) TABLET PO SCH ×2 (08:17→21:40)
[2020-02-28] MEDS: toPIRamate 25 MG (TOPAMAX) TAB PO SCH (08:18)
[2020-02-28] MEDS: polyethylene glycoL POWDER 17 GM (MIRALAX) PACK PO SCH ×2 (08:18→21:43)
[2020-02-28] MEDS: DOCUSATE SODIUM 100 MG (COLACE) CAP PO SCH ×2 (08:18→21:43)
[2020-02-28] MEDS: ENOXAPARIN 60 MG/0.6 ML (LOVENOX) SYR SC SCH (08:19)
--- NOTE | 2020-02-28 08:54 | NUR ---
ADJUSTED ENOXAPARIN DOSE TO 40MG SQ BID DUE TO BMI DROP TO <60
--- NOTE | 2020-02-28 10:10 | PM&R Progress Note ---
Subjective HPI/CC On Admission Date Seen by Provider: Feb 28, 2020 Time Seen by Provider: 10:15 Subjective/Events-last exam Patient overall doing ok DR Llanes recommended leaving the catheter in for now to prevent skin breakdown and will work on DC in a few weeks and she did report she had incontinence before this event O2 at 1L/min and working on DC that PICC line will be placed Back pain is increased a bit so will start Baclofen to see if that can be narcotic sparing May need long acting pain med narcotic if pain persists out of control BM regular now Labs improving wbc 11 and procalcitonin is near complete normal Overall she is doing very well since arriving IRF and she is currently in laura lift Sugars are improving with decreased steroids and will DC IV form and start taper of Prednisone starting tomorrow Levaquin maintained along with probiotic Checked meds and labs Conferred wtih RN Reviewed therapy notes Review of Systems General: Fatigue Musculoskeletal: back pain Neurological: Weakness, Numbness, Incoordination Objective Exam Vital Signs Vital Signs Date Time Temp Pulse Resp B/P (MAP) Pulse Ox O2 Delivery O2 Flow Rate FiO2 02/28/20 12:30 36.8 78 93 24 02/28/20 11:05 Nasal Cannula 1.00 02/28/20 08:14 141/88 (105) 02/28/20 05:52 20 Capillary Refill : Less Than 3 Seconds General Appearance: No Apparent Distress, WD/WN, Chronically ill, Obese HEENT: PERRL/EOMI, Normal ENT Inspection, Pharynx Normal Neck: Full Range of Motion, Normal Inspection, Non Tender, Supple, Carotid Bruit Respiratory: Chest Non Tender, Lungs Clear, Normal Breath Sounds, No Accessory Muscle Use, No Respiratory Distress, Decreased Breath Sounds Cardiovascular: Regular Rate, Rhythm, No Gallop, No JVD, No Murmur, Normal Peripheral Pulses Gastrointestinal: Normal Bowel Sounds, No Organomegaly, No Pulsatile Mass, Non Tender, Soft Back: Normal Inspection, No CVA Tenderness, No Vertebral Tenderness Extremity: Normal Capillary Refill, Normal Inspection, Pedal Edema Neurologic/Psychiatric: Alert, 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 FIM Transfers Therapy Code Descriptions/Definitions Functional [place] Measure: 0=Not Assessed/NA 4=Minimal Assistance 1=Total Assistance 5=Supervision or Setup 2=Maximal Assistance 6=Modified [place] 3=Moderate Assistance 7=Complete IndependenceSCALE: Activities may be completed with or without assistive devices. 2-Foehhuwrfk-kqrjlfu completes the activity by him/herself with no assistance from a helper. 5-Set-up or Clean-up Assistance-helper sets up or cleans up; patient completes activity. [place] assists only prior to or following the activity. 4-Supervision or Touching Assistance-helper provides verbal cues and/or touching/steadying and/or contact guard assistance as patient completes activity. Assistance may be provided throughout the activity or intermittently. 3-Partial/Moderate Assistance-helper does LESS THAN HALF the effort. [place] lifts, holds or supports trunk or limbs, but provides less than half the effort. 2-Substantial/Maximal Assistance-helper does MORE THAN HALF the effort. [place] lifts or holds trunk or limbs and provides more than half the effort. 8-Tozekwxkb-vkcahv does ALL the effort. Patient does none of the effort to complete the activity. Or, the assistance of 2 or more helpers is required for the patient to complete the activity. If activity was not attempted, code reason: 7-Patient Refused. 9-Not Applicable-not attempted and the patient did not perform the activity before the current illness, exacerbation or injury. 10-Not Attempted due to Environmental Limitations-(lack of equipment, weather restraints, etc.). 88-Not Attempted due to Medical Conditions or Safety Concerns. Roll Left to Right (QC): 3 Sit to Lying (QC): 1 Sit to Stand (QC): 88 Chair/Bdw-fz-Vyaqf Xfer(QC): 1 Car Transfer (QC): 88 Gait Training Does the Patient Walk?: No and Walking Goal NOT indicated Walk 10 feet (QC): 88 Walk 50 ft with 2 Turns(QC): 88 Walk 150 ft (QC): 88 Walking 10ft/uneven surface-QC: 88 Wheelchair Training Does the Pt Use a Wheelchair?: No Wheel 50 ft with 2 turns (QC): 88 Wheel 150 ft (QC): 88 Stair Training 1 Step (curb) (QC): 88 4 Steps (QC): 88 12 Steps (QC): 88 ADL-Treatment Eating (QC): 6 (IND) Oral Hygiene (QC): 6 (IND) Shower/Bathe Self (QC): 2 (Max A (TD shower transfer)) Upper Body Dressing (QC): 3 (mod A gown donning.) Lower Body Dressing (QC): 1 (TD) On/Off Footwear (QC): 1 (TD) Toileting Hygiene (QC): 1 (TD) Assessment/Plan Assessment and Plan Assess & Plan/Chief Complaint Assessment: (1) Paraplegia at T9 level ICD Codes: G82.20 - Paraplegia, unspecified (2) Acute osteomyelitis of spine Status: Acute ICD Codes: M46.20 - Osteomyelitis of vertebra, site unspecified (3) White catheter in place ICD Codes: Z96.0 - Presence of urogenital implants (4) Neurogenic bladder ICD Codes: N31.9 - Neuromuscular dysfunction of bladder, unspecified (5) Chronic mental illness ICD Codes: F99 - Mental disorder, not otherwise specified (6) Depression ICD Codes: F32.9 - Major depressive disorder, single episode, unspecified (7) H/O gastric bypass ICD Codes: Z98.84 - Bariatric surgery status (8) Fecal incontinence ICD Codes: R15.9 - Full incontinence of feces (9) Acute respiratory failure with hypoxia Status: Acute ICD Codes: J96.01 - Acute respiratory failure with hypoxia (10) T2DM (type 2 diabetes mellitus) Status: Chronic ICD Codes: E11.9 - Type 2 diabetes mellitus without complications (11) Paresthesia of both legs Status: Acute ICD Codes: R20.2 - Paresthesia of skin (12) RLS (restless legs syndrome) Status: Chronic ICD Codes: G25.81 - Restless legs syndrome (13) Elevated liver function tests Status: Acute ICD Codes: R94.5 - Abnormal results of liver function studies (14) HLD (hyperlipidemia) Status: Chronic ICD Codes: E78.5 - Hyperlipidemia, unspecified (15) HTN (hypertension) Status: Chronic ICD Codes: I10 - Essential (primary) hypertension (16) Morbid obesity Status: Chronic ICD Codes: E66.01 - Morbid (severe) obesity due to excess calories (17) Shortness of breath Status: Acute ICD Codes: R06.02 - Shortness of breath (18) Hypoxia Status: Acute ICD Codes: R09.02 - Hypoxemia Plan: IRF Wheelchair mobility Increase ADL's in order to return home with caregivers Psych evaluation requested BM regimen Neurogenic bladder will keep catheter for now since incontinence chronically could place her at skin breakdown issues Pain control Levaquin for osteomyelitis of spine IV form Decreasing steroids by transitioning to PO form BM regimen (1) Paraplegia at T9 level (2) Acute osteomyelitis of spine Status: Acute (3) White catheter in place (4) Neurogenic bladder (5) Chronic mental illness (6) Depression (7) H/O gastric bypass (8) Fecal incontinence (9) Acute respiratory failure with hypoxia Status: Acute (10) T2DM (type 2 diabetes mellitus) Status: Chronic (11) Paresthesia of both legs Status: Acute (12) RLS (restless legs syndrome) Status: Chronic (13) Elevated liver function tests Status: Acute (14) HLD (hyperlipidemia) Status: Chronic (15) HTN (hypertension) Status: Chronic (16) Morbid obesity Status: Chronic (17) Shortness of breath Status: Acute (18) Hypoxia Status: Acute KATELYN JENSEN DO Feb 28, 2020 10:10
[2020-02-28] MEDS: RT-ALBUTEROL HFA (PROAIR HFA) 8.5 GM IH SCH ×2 (11:05→18:15)
--- NOTE | 2020-02-28 11:39 | Physical Therapy Daily Note ---
PT Daily Note-Current Subjective Pt agreeable to treatment. Pain rated 8/10 in mid-back. Pt c/o "whoozy" feeling toward end of treatment. Nursing notified at end of treatment. Nursing checked vitals and blood sugar, all normal. Mental Status Patient Orientation: Person, Place, Situation Transfers SCALE: Activities may be completed with or without assistive devices. 3-Pufxjfjewc-iqpqijx completes the activity by him/herself with no assistance from a helper. 5-Set-up or Clean-up Assistance-helper sets up or cleans up; patient completes activity. [place] assists only prior to or following the activity. 4-Supervision or Touching Assistance-helper provides verbal cues and/or touching/steadying and/or contact guard assistance as patient completes activity. Assistance may be provided throughout the activity or intermittently. 3-Partial/Moderate Assistance-helper does LESS THAN HALF the effort. [place] lifts, holds or supports trunk or limbs, but provides less than half the effort. 2-Substantial/Maximal Assistance-helper does MORE THAN HALF the effort. [place] lifts or holds trunk or limbs and provides more than half the effort. 9-Eoesmggja-mbwxln does ALL the effort. Patient does none of the effort to complete the activity. Or, the assistance of 2 or more helpers is required for the patient to complete the activity. If activity was not attempted, code reason: 7-Patient Refused. 9-Not Applicable-not attempted and the patient did not perform the activity before the current illness, exacerbation or injury. 10-Not Attempted due to Environmental Limitations-(lack of equipment, weather restraints, etc.). 88-Not Attempted due to Medical Conditions or Safety Concerns. Treatments Co-treat with OT due to the need for 2 skilled clinicians to complete all tasks due to the complexity of recent paraplegia and decreased mobility. PT working on functional mobility, LE ROM and trunk strengthening. OT working on UE strengthening, bed mobility and ADLs. Treatment rendered included PROM (B) ankles, knees and hips all planes in available range. Rolling side to side for pericare and sling placement required max A of 2. Pt somewhat limited by back p ain during rolling. Care taken as needed to try to avoid increased pain. Pt transfer to EOB for dangling EOB via laura lift. Dangling (seated on EOB) x 10 min incorporating deep breathing. PROM to (B) LE ankles and knees x 20 each in available ranges in sitting. Pt transferred to recliner via laura. Practiced sitting forward (unweighting back) with assist of gait belt, practiced cross body reaching to activate core/trunk muscles, practiced self range with gait belt for AP and knee ext with min A as needed. Assessment Current Status: Fair Progress Pt dependent for all mobility. Strength (B) LE 0/5, no sensation at all per pt. Pt able to complete all activities with occasional c/o back pain during movement. Pt resting in recliner, nursing present at end of treatment. Pt call light in lap, legs elevated and floating on pillows. All needs met. PT Short Term Goals Short Term Goals Time Frame: Mar 03, 2020 Roll Left & Right: 2 PT Compensation Expert Goals Jail Goals PT Compensation Expert Goals Time Frame: Mar 17, 2020 Roll Left & Right (QC): 2 Sit to Lying (QC): 88 Lying-Sitting on Side/Bed(QC): 88 Sit to Stand (QC): 88 Chair/Ale-ps-Nsdkw Xfer(QC): 88 Toilet Transfer (QC): 88 Car Transfer (QC): 88 Does the Patient Walk: No and Walking Goal NOT indicated Walk 10 feet (QC): 88 Walk 50ft with 2 Turns (QC): 88 Walk 150 ft (QC): 88 Walking 10ft on Uneven Surface: 88 1 Step (curb) (QC): 88 4 Steps (QC): 88 12 Steps (QC): 88 Picking up an Object (QC): 88 Wheel 50 feet with 2 turns (QC: 4 Type: Motorized Wheel 150 feet: 4 Type: Motorized PT Plan Treatment/Plan Treatment Plan: Continue Plan of Care Treatment Plan: Bed Mobility, Education, Functional Activity Regulo, Functional Strength, Group Therapy, Safety, Therapeutic Exercise, Transfers Treatment Duration: Mar 17, 2020 Frequency: At least 5 of 7 days/Wk (IRF) Estimated Hrs Per Day: 1.5 hours per day Patient and/or Family Agrees t: Yes Time/GCodes Time In: 930 Time Out: 1100 Total Billed Treatment Time: 90 Total Billed Treatment 1, Ther ex 30', FA 60', Co-Treatment 90' [facility] Feb 28, 2020 11:39
--- NOTE | 2020-02-28 11:42 | Occupational Ther Daily Note ---
OT Current Status-Daily Note Subjective Pt laying in bed at stat of session, agreeable to OT/PT cotreat. She reports pain 8/10 in her mid back. Pain Numeric Pain Scale: 8 Location Body Site: Back ADL-Treatment Therapy Code Descriptions/Definitions Functional [place] Measure: 0=Not Assessed/NA 4=Minimal Assistance 1=Total Assistance 5=Supervision or Setup 2=Maximal Assistance 6=Modified [place] 3=Moderate Assistance 7=Complete IndependenceSCALE: Activities may be completed with or without assistive devices. 1-Tdhyikbwzd-orqgofh completes the activity by him/herself with no assistance from a helper. 5-Set-up or Clean-up Assistance-helper sets up or cleans up; patient completes activity. [place] assists only prior to or following the activity. 4-Supervision or Touching Assistance-helper provides verbal cues and/or touching/steadying and/or contact guard assistance as patient completes activity. Assistance may be provided throughout the activity or intermittently. 3-Partial/Moderate Assistance-helper does LESS THAN HALF the effort. [place] lifts, holds or supports trunk or limbs, but provides less than half the effort. 2-Substantial/Maximal Assistance-helper does MORE THAN HALF the effort. [place] lifts or holds trunk or limbs and provides more than half the effort. 1-Gitpebokf-woldgz does ALL the effort. Patient does none of the effort to complete the activity. Or, the assistance of 2 or more helpers is required for the patient to complete the activity. If activity was not attempted, code reason: 7-Patient Refused. 9-Not Applicable-not attempted and the patient did not perform the activity before the current illness, exacerbation or injury. 10-Not Attempted due to Environmental Limitations-(lack of equipment, weather restraints, etc.). 88-Not Attempted due to Medical Conditions or Safety Concerns. Oral Hygiene (QC): 5 (set up/clean up resit seated in recliner.) Upper Body Dressing (QC): 1 (Pt able to don gown over her head and through her arms. Assist x2 to roll side to side in order to manage gown down.) Other Treatment OT/PT cotreat due to increased medical complexity, decreased functional ability, and paraplegia requiring the skill of 2 disciplines which a rehab aid could not perform. OT focused on ADLs, UE placement, cues for safety and sequencing while PT focused on LE placement and overall gross movements. Pt laying in bed at start of session,pt brushed her hair and washed her face, under her breasts and armpits with set up assist. She then changed her hospital gown to a night gown, requiring x2 assist during rolling side to side. OT dependently washed periarea for pt. OT then educated pt on benefits/purpose of diaphragmatic breathing while PT performed PROM. Pt demo'd understanding of diaphragmatic breathing. Pt then rolled side to side x2 assist in order for laura sling placement. As pt was lifted in the sling, she reported a "grinding" feeling in her back. She was able to transfer via laura, with slow transitions. Pt sat EOB with support of laura approximately 10 mins. Pt then transferred to recliner via [facility]. Pt able to brush her teeth with set up assist at tray table. Pt demo'd yellow theraband exercises x15 reps each BUE: horizontal abduction, elbow flexion/extension. Pt then educated on using leg brand engineer in order to ranger her LEs with the support of her UEs. Pt also completed functional reaching tasks crossing midline. Pt report s "not feeling right" while seated upright. Nursing notified and checked her BP, blood sugar, pulse, and O2 sats, all within a normal range. Pt reports she has not been out of bed since Friday and she feels this may contribute to her feeling. Post OT/PT cotreat, pt seated in recliner, call light in reach and all needs met, nursing present. Education OT Patient Education: Correct positioning, Energy conservation, Exercise program, Modified ADL techniques, Progress toward Goal/Update tx plan, Purpose of tx/functional activities, Safety issues, Transfer techniques, Use of adapted equipment Teaching Recipient: Patient Teaching Methods: Discussion Response to Teaching: Verbalize Understanding OT Short Term Goals Short Term Goals Time Frame: Mar 03, 2020 Toileting hygiene: 2 Shower/bathe self: 3 OT Suction Worker Goals Nursing Home Goals Time Frame: Mar 17, 2020 Eating (QC): 6 Oral Hygiene (QC): 6 Toileting Hygiene (QC): 4 Shower/Bathe Self (QC): 4 Upper Body Dressing (QC): 5 Lower Body Dressing (QC): 3 On/Off Footwear (QC): 6 Additional Goals: 1-Demonstrate ADL Tasks, 2-Verbalize Understanding, 3- ImproveStrength/Regulo 1=Demonstrate adherence to instructed precautions during ADL tasks. 2=Patient will verbalize/demonstrate understanding of assistive devices/modifications for ADL. 3=Patient will improve strength/tolerance for activity to enable patient to perform ADL's. OT Education/Plan Problem List/Assessment Assessment: Decreased Activ Tolerance, Decreased UE Strength, Dependent Transfers, Impaired Bed Mobility, Impaired Funct Balance, Impaired I ADL's, Impaired Self-Care Skills Discharge Recommendations Plan/Recommendations: Continue POC Treatment Plan/Plan of Care Patient would benefit from OT for education, treatment and training to promote independence in ADL's, mobility, safety and/or upper extremity function for ADL's. Plan of Care: ADL Retraining, Caregiver Training, Concurrent Therapy, Functional Mobility, Group Exercise/Act as Ind, UE Funct Exercise/Act, W/C Management Training Treatment Duration: Mar 10, 2020 Frequency: At least 5 of 7 days/Wk (IRF) Estimated Hrs Per Day: 1.5 hours per day Agreement: Yes Rehab Potential: Poor Time/GCodes Start Time: 09:30 Stop Time: 11:00 Total Time Billed (hr/min): 90 Billed Treatment Time OT/PT cotreat [id number] 1, ADL (15'), EX (10'), FA 4 (37) WOLF EPPERSON OT Feb 28, 2020 11:42
[2020-02-28 12:30] VITALS: BP 141/88
--- NOTE | 2020-02-28 13:34 | NUR ---
"RD ASSESSMENT PMHx: HTN; DM; HLD; obesity; GERD; paraplegia PT INTERACTION: Pt was awake and pleasant during nutrition assessment. Pt states current appetite is okay. Note avg PO intake >75% x2d, per chart review. Pt states some issues with nausea, but not vomiting. Pt states some issues with constipation. Note last BM was 02/24 and pt currently on bowel regimen of Colace BID; Senna BID; and Miralax BID, per chart review. Note 33# wt loss x10d, per chart review. This RD believes it is d/t fluid losses. ABNORMAL NUTRITION-RELATED LAB VALUES LOW: Cl 93; alb 3.1 HIGH: glu 153; BUN 31; ALT 79; alkphos 204 Est. kcal needs: 2995-8452 kcal | 25-30 kcal/kg IBW, based on IBW of 61.4 kg (135#) Est. Pro needs: 49-61 g Pro | 0.8-1.0 g Pro/kg IBW, based on IBW of 61.4 kg (135#) PES STATEMENT: Given current PO intake, no nutrition diagnosis at this time (NO-1.1) INTERVENTION: Continue with current diet order of CHO 75g/m 0snack diet. Pt may benefit from lower CHO restriction, if blood glucoses become elevated. Will continue to follow and reassess as pt needs, intake, and status change. MONITOR/EVALUATE: PO Intake; Plan of Care; Hydration Status; Weight Status; Lab Values Miladys Kaufman, MS, RD, LD"
--- NOTE | 2020-02-28 14:30 | NUR ---
CM/SS ADMISSION Patient was admitted to ARU 02/25/20 for Paraplegia at T9 Level, reported severe destruction bony changes T9 & T10. Other multiple comorbidities are, in part, h/o gastric bypass and current morbid obesity, T2DM, HTN, chronic mental illness. Patient was reportedly at home and ambulatory with a FWW prior to a rapid onset of loss of any movement in her legs. Per EMR entries, she was seen in the ED at [facility] on 02/11, 02/12, and 02/13 for constipation, back pain, and paraesthesia respectively. She as able to ambulate into the ED on the and , but by the required mechanical lift to transfer. Patient was admitted to [facility] for two days, then transferred to [facility] for further decline 02/17/20 where she remained until admitting into our program. Patient stated goal is to return home, she does not want to return to a community nursing facility environment if at all possible. DME: Has bariatric FWW, shower chair. Because of patient change in level of functioning and current dependent care, therapy staff to assess for new assistive device needs regarding home performance and safety, likely extensive. PCP: Dr. Thad Gifford MD. [address] [facility], [address], [place] [address]. [phone] INSURED: Medicare, [facility] PHARMACY: [facility] CONTACTS: John Ely Jr., Nephkarina [address] [place] [address] [place] [address] Steffany works at [employer] and is a primary person, along with John Ely, regarding patient discharge planning and post hospital care. John Ely, , [place] [address] Sarwat Ely, Son (only child) [address] [place] [address] ADVANCED MEDICAL DIRECTIVE: Patient shows interest in completing this document, she will speak to her son Sarwat and her niece Steffany prior to completion. She understands we can assist with this as soon as she determines her agents and is ready to proceed. Patient understands the purpose and process of the weekly Patient Care Conference. A complex discharge process is anticipated if patient does return directly to her home. First and foremost, family members will have to commit to 24/ care. Nephew John Ely and patient have resided together an extended period of time, in a phone conversation he did state he would be willing to accept responsibility for her care. He expressed understanding that other family would have to commit, John is home days and works nights. He said family members were in conversation about patient future at home and coverage of care. Patient and John were both asked about comfort providing personal care needs, both indicated acceptance if needed. Patient currently has urine and fecal incontinence. New DME for home will be extensive with lower extremity paraplegia. Patient and John indicate the home is slab on grade so front entry is feasible as long as door jam accepts width of bariatric wheelchair. Continue partnership with patient, family, ARU team on patient behalf.
--- NOTE | 2020-02-28 15:02 | CONSULTATION REPORT ---
DATE OF SERVICE: 02/28/2020 ATTENDING PHYSICIAN: Dr. Sheffield. SUMMARY: A 54-year-old white lady sustained a back injury causing paraplegia as well as urinary and fecal incontinence. She denies urinary retention. Her only problem before this incident was incontinence, never had any problem emptying her bladder. She has a White catheter since her admission coming from a different institution. She denies it was put for retention, but mostly for incontinence. IMPRESSION: Neurogenic bladder with urinary incontinence/retention and fecal incontinence. RECOMMENDATION: As long as she is bedridden and no much activity, we will probably recommend to leave the White catheter in, especially with history of incontinence and possibility of ulceration or lesions secondary to leakage associated on top of the fecal incontinence. Once she recovers from her problem and becomes ambulatory, if it happens, then we will give her trial of voiding and manage accordingly. The plan was fully explained to the patient. Job ID: [id number] DocumentID: [id number] Dictated Date: 02/28/2020 09:40:58 Supervisor Data Processing Date: 02/28/2020 15:01:31 Dictated By: MARCOS CENTENO MD
[2020-02-28] MEDS: LEVOFLOXACIN 750 MG/150 ML IV 150 ML IV SCH (15:53)
[2020-02-28 16:00] VITALS: BP 107/71
[2020-02-28] MEDS: rOPINIRole 1 MG (REQUIP) TABLET PO SCH (21:38)
[2020-02-28] MEDS: ENOXAPARIN 40 MG/0.4 ML (LOVENOX) SYR SC SCH (21:40)
[2020-02-29] MEDS: BACLOFEN 10 MG (LIORESAL) TAB PO PRN (04:13)
[2020-02-29 06:00] VITALS: BP 121/78
[2020-02-29] MEDS: CATHETER FLUSH 10 ML SYR IV SCH ×3 (06:08→22:13)
[2020-02-29] MEDS: predniSONE 20 MG TAB PO SCH (06:08)
[2020-02-29] MEDS: RT-ALBUTEROL HFA (PROAIR HFA) 8.5 GM IH SCH ×2 (06:22→18:07)
[2020-02-29] MEDS: inSUlin ASPART (NovoLOG) 1 UNIT/0.01 ML (CHARGE PER UNIT) SC SCH ×4 (06:27→22:19)
[2020-02-29 08:00] VITALS: BP 128/70
[2020-02-29] MEDS: VENlafaxine 75 MG (EFFEXOR) TAB PO SCH ×4 (08:44→22:11)
[2020-02-29] MEDS: ZONISAMIDE 100 MG CAP (ZONEGRAN) NON-FORMULARY PO SCH ×2 (08:44→22:10)
[2020-02-29] MEDS: KCL 10 MEQ TAB (MICRO K) PO SCH ×2 (08:45→22:10)
[2020-02-29] MEDS: ARTIFICAL TEARS 0.4 ML UNIT DOSE (REFRESH PLUS) OU SCH ×3 (08:45→22:11)
[2020-02-29] MEDS: GABAPENTIN 300 MG (NEURONTIN) CAP PO SCH ×3 (08:45→22:10)
[2020-02-29] MEDS: toPIRamate 25 MG (TOPAMAX) TAB PO SCH (08:45)
[2020-02-29] MEDS: SENNOSIDES 8.6 MG (SENOKOT) TAB PO SCH ×2 (08:45→22:11)
[2020-02-29] MEDS: SENNA W/DOCUSATE (SENOKOT S) TABLET PO SCH ×2 (08:45→22:10)
[2020-02-29] MEDS: meTOprolol TARTRATE 25 MG (LOPRESSOR) TABLET PO SCH ×2 (08:45→22:11)
[2020-02-29] MEDS: DOCUSATE SODIUM 100 MG (COLACE) CAP PO SCH ×2 (08:46→22:09)
[2020-02-29] MEDS: FUROSEMIDE 40 MG/4 ML INJ (LASIX) IVP SCH (08:47)
[2020-02-29] MEDS: LACTOBACILLUS ACIDOPHILUS (PROBIOTIC) CAPSULE PO SCH ×3 (08:48→17:21)
[2020-02-29] MEDS: ENOXAPARIN 40 MG/0.4 ML (LOVENOX) SYR SC SCH ×2 (08:48→22:13)
[2020-02-29] MEDS: polyethylene glycoL POWDER 17 GM (MIRALAX) PACK PO SCH ×2 (08:49→22:21)
--- NOTE | 2020-02-29 09:00 | NUR ---
BEHAVIORAL HEALTH CHANGED CONSULT TIME TO 03/01/20 TO BETWEEN [id number]. DR. JENSEN NOTIFIED OF PT ON RA. ORDERED 2L OF O2 AT HS.
--- NOTE | 2020-02-29 10:29 | PM&R Progress Note ---
Subjective HPI/CC On Admission Date Seen by Provider: Feb 29, 2020 Time Seen by Provider: 10:30 Subjective/Events-last exam Patient overall doing very well and seems more optimistic DR Llanes and I conferred and will remain with catheter for the time being O2 weaned but will maintain at night since I do believe she has night time hypoxia from OHS and SUKHWINDER PICC line maintained Back pain occurs at night Pain is well controlled BM regimen maintained since last 02/24 Overall she is doing very well since arriving IRF a Sugars are improving with transition of steroids to PO Levaquin maintained along with probiotic tolerated and doing well Checked meds and labs Conferred wtih RN Reviewed therapy notes Review of Systems Musculoskeletal: back pain Neurological: Weakness, Numbness, Incoordination Objective Exam Vital Signs Vital Signs Date Time Temp Pulse Resp B/P (MAP) Pulse Ox O2 Delivery O2 Flow Rate FiO2 02/29/20 16:07 36.8 78 16 109/72 (84) 90 Room Air 02/28/20 18:15 1.00 02/28/20 12:30 24 Capillary Refill : Less Than 3 Seconds General Appearance: No Apparent Distress, WD/WN, Chronically ill, Obese HEENT: PERRL/EOMI, Normal ENT Inspection, Pharynx Normal Neck: Full Range of Motion, Normal Inspection, Non Tender, Supple, Carotid Bru it Respiratory: Chest Non Tender, Lungs Clear, Normal Breath Sounds, No Accessory Muscle Use, No Respiratory Distress, Decreased Breath Sounds Cardiovascular: Regular Rate, Rhythm, No Gallop, No JVD, No Murmur, Normal Peripheral Pulses Gastrointestinal: Normal Bowel Sounds, No Organomegaly, No Pulsatile Mass, Non Tender, Soft Back: Normal Inspection, No CVA Tenderness, No Vertebral Tenderness Extremity: Normal Capillary Refill, Normal Inspection, Pedal Edema Neurologic/Psychiatric: Alert, Oriented x3, legal support assistant II-XII Norm as Tested, Depressed Affect, Motor Weakness (T9 and below paralysis) Skin: Normal Color, Warm/Dry Lymphatic: No Adenopathy Results/Procedures Lab Patient resulted labs reviewed. FIM Transfers Therapy Code Descriptions/Definitions Functional [place] Measure: 0=Not Assessed/NA 4=Minimal Assistance 1=Total Assistance 5=Supervision or Setup 2=Maximal Assistance 6=Modified [place] 3=Moderate Assistance 7=Complete IndependenceSCALE: Activities may be completed with or without assistive devices. 6-Xrahdnhbpy-jiujtkd completes the activity by him/herself with no assistance from a helper. 5-Set-up or Clean-up Assistance-helper sets up or cleans up; patient completes activity. [place] assists only prior to or following the activity. 4-Supervision or Touching Assistance-helper provides verbal cues and/or touching/steadying and/or contact guard assistance as patient completes activity. Assistance may be provided throughout the activity or intermittently. 3-Partial/Moderate Assistance-helper does LESS THAN HALF the effort. [place] lifts, holds or supports trunk or limbs, but provides less than half the effort. 2-Substantial/Maximal Assistance-helper does MORE THAN HALF the effort. [place] lifts or holds trunk or limbs and provides more than half the effort. 7-Oxtdlzmsh-iqnftv does ALL the effort. Patient does none of the effort to complete the activity. Or, the assistance of 2 or more helpers is required for the patient to complete the activity. If activity was not attempted, code reason: 7-Patient Refused. 9-Not Applicable-not attempted and the patient did not perform the activity before the current illness, exacerbation or injury. 10-Not Attempted due to Environmental Limitations-(lack of equipment, weather restraints, etc.). 88-Not Attempted due to Medical Conditions or Safety Concerns. Roll Left to Right (QC): 3 Sit to Lying (QC): 1 Sit to Stand (QC): 88 Chair/Yfg-ue-Mrgln Xfer(QC): 1 Car Transfer (QC): 88 Gait Training Does the Patient Walk?: No and Walking Goal NOT indicated Walk 10 feet (QC): 88 Walk 50 ft with 2 Turns(QC): 88 Walk 150 ft (QC): 88 Walking 10ft/uneven surface-QC: 88 Wheelchair Training Does the Pt Use a Wheelchair?: No Wheel 50 ft with 2 turns (QC): 88 Wheel 150 ft (QC): 88 Stair Training 1 Step (curb) (QC): 88 4 Steps (QC): 88 12 Steps (QC): 88 ADL-Treatment Eating (QC): 6 (IND) Oral Hygiene (QC): 5 (set up/clean up resit seated in recliner.) Shower/Bathe Self (QC): 2 (Max A (TD shower transfer)) Upper Body Dressing (QC): 1 (Pt able to don gown over her head and through her arms. Assist x2 to roll side to side in order to manage gown down.) Lower Body Dressing (QC): 1 (TD) On/Off Footwear (QC): 1 (TD) Toileting Hygiene (QC): 1 (TD) Assessment/Plan Assessment and Plan Assess & Plan/Chief Complaint Assessment: (1) Paraplegia at T9 level ICD Codes: G82.20 - Paraplegia, unspecified (2) Acute osteomyelitis of spine Status: Acute ICD Codes: M46.20 - Osteomyelitis of vertebra, site unspecified (3) White catheter in place ICD Codes: Z96.0 - Presence of urogenital implants (4) Neurogenic bladder ICD Codes: N31.9 - Neuromuscular dysfunction of bladder, unspecified (5) Chronic mental illness ICD Codes: F99 - Mental disorder, not otherwise specified (6) Depression ICD Codes: F32.9 - Major depressive disorder, single episode, unspecified (7) H/O gastric bypass ICD Codes: Z98.84 - Bariatric surgery status (8) Fecal incontinence ICD Codes: R15.9 - Full incontinence of feces (9) Acute respiratory failure with hypoxia Status: Acute ICD Codes: J96.01 - Acute respiratory failure with hypoxia (10) T2DM (type 2 diabetes mellitus) Status: Chronic ICD Codes: E11.9 - Type 2 diabetes mellitus without complications (11) Paresthesia of both legs Status: Acute ICD Codes: R20.2 - Paresthesia of skin (12) RLS (restless legs syndrome) Status: Chronic ICD Codes: G25.81 - Restless legs syndrome (13) Elevated liver function tests Status: Acute ICD Codes: R94.5 - Abnormal results of liver function studies (14) HLD (hyperlipidemia) Status: Chronic ICD Codes: E78.5 - Hyperlipidemia, unspecified (15) HTN (hypertension) Status: Chronic ICD Codes: I10 - Essential (primary) hypertension (16) Morbid obesity Status: Chronic ICD Codes: E66.01 - Morbid (severe) obesity due to excess calories (17) Shortness of breath Status: Acute ICD Codes: R06.02 - Shortness of breath (18) Hypoxia Status: Acute ICD Codes: R09.02 - Hypoxemia Plan: IRF Wheelchair mobility Increase ADL's in order to return home with caregivers Psych evaluation rescheduled for tomorrow BM regimen to increase Neurogenic bladder will keep catheter for now since incontinence chronically co uld place her at skin breakdown issues Pain control Levaquin for osteomyelitis of spine IV form Decreasing steroids by transitioning to PO form BM regimen (1) Paraplegia at T9 level (2) Acute osteomyelitis of spine Status: Acute (3) White catheter in place (4) Neurogenic bladder (5) Chronic mental illness (6) Depression (7) H/O gastric bypass (8) Fecal incontinence (9) Acute respiratory failure with hypoxia Status: Acute (10) T2DM (type 2 diabetes mellitus) Status: Chronic (11) Paresthesia of both legs Status: Acute (12) RLS (restless legs syndrome) Status: Chronic (13) Elevated liver function tests Status: Acute (14) HLD (hyperlipidemia) Status: Chronic (15) HTN (hypertension) Status: Chronic (16) Morbid obesity Status: Chronic (17) Shortness of breath Status: Acute (18) Hypoxia Status: Acute KATELYN JENSEN DO Feb 29, 2020 10:29
--- NOTE | 2020-02-29 10:59 | Progress Note - Urology ---
Progress Note-Urology Progress Notes/Assess & Plan Progress/Assessment & Plan NO ISSUES. KEEP SAME PLAN Final Diagnosis NEUROGENIC BLADDER WITH INCONTINENCE AND RETENTION MARCOS CENTENO MD Feb 29, 2020 10:59
--- NOTE | 2020-02-29 12:00 | NUR ---
BARIATRIC AIR BED PLACED IN ROOM FOR PT.
--- NOTE | 2020-02-29 12:04 | Physical Therapy Daily Note ---
PT Daily Note-Current Subjective Pt laying Supine in bed upon arrival. Pt agrees to PT/OT co-treat. Pt needs skill of 2 clinicians due to pt's inability to stand, activity tolerance and lack of strength. Pain Numeric Pain Scale: 5-Moderate Pain Location Body Site: Back Pain Description: Tightness Mental Status Patient Orientation: Person, Place, Situation Transfers SCALE: Activities may be completed with or without assistive devices. 2-Mhvtemwgge-ddrtatt completes the activity by him/herself with no assistance from a helper. 5-Set-up or Clean-up Assistance-helper sets up or cleans up; patient completes activity. [place] assists only prior to or following the activity. 4-Supervision or Touching Assistance-helper provides verbal cues and/or touching/steadying and/or contact guard assistance as patient completes activity. Assistance may be provided throughout the activity or intermittently. 3-Partial/Moderate Assistance-helper does LESS THAN HALF the effort. [place] lifts, holds or supports trunk or limbs, but provides less than half the effort. 2-Substantial/Maximal Assistance-helper does MORE THAN HALF the effort. [place] lifts or holds trunk or limbs and provides more than half the effort. 3-Dgiqyohgp-mocjge does ALL the effort. Patient does none of the effort to complete the activity. Or, the assistance of 2 or more helpers is required for the patient to complete the activity. If activity was not attempted, code reason: 7-Patient Refused. 9-Not Applicable-not attempted and the patient did not perform the activity before the current illness, exacerbation or injury. 10-Not Attempted due to Environmental Limitations-(lack of equipment, weather restraints, etc.). 88-Not Attempted due to Medical Conditions or Safety Concerns. Roll Left & Right (QC): 2 Chair/Mkn-ob-Ltlqh Xfer(QC): 1 Exercises Seated Therapy Exercises: Ankle pumps, Long arc quads, Reaching activity Seated Reps: 15 Treatments OT/PT cotreat due to increased medical complexity, decreased functional ability, and paraplegia requiring the skill of 2 disciplines which a rehab liaison could not perform. OT focused on ADLs, UE placement, cues for safety and sequencing while PT focused on LE placement and overall gross movements. Pt laying in bed at start of session, rolled side to side (Assist x2) in order for laura sling placement. OT/PT attempted to transfer pt to large shower chair in order to wheel pt to large shower room. Pt reported pain in her back during transfer, once seated in the shower chair and partially supported by laura, pt reports increased back pain, difficulty breathing due to being in slouched posture, and she felt like she was going to slide out of chair. OT/PT assisted pt in readjusting with multiple trials, but pt continued to slide down after each readjustment. Pt agreed to complete sponge bath in recliner instead of shower as discussed due to safety concerns with her not properly being supported in chair and her buttocks sliding forward in chair after readjustments. Pt then transferred to recliner via laura where she participated in a sponge bath and dressing. Pt participated in LE ROM using leg cone winder, utilizing her UEs for task. She then washed her hair using a shower cap with set up, brushed hair with set up, and brushed her teeth with set up assist. Pt demo'd understanding of yellow theraband exercises, completing x15 reps horizontal abduction and elbow extension. Pt then completed functional reaching activity with crossing midline in order to increase dynamic sitting balance during functional tasks. Post OT/PT cotreat, pt seated in recliner, call light in reach and all needs met. Assessment Current Status: Fair Progress Pt limited in activities by weakness and fatigue at this time; needing a laura lift for transfers. PT Short Term Goals Short Term Goals Time Frame: Mar 03, 2020 Roll Left & Right: 2 PT Residential Goals Residential Goals PT Senior Major Gifts Officer Goals Time Frame: Mar 17, 2020 Roll Left & Right (QC): 2 Sit to Lying (QC): 88 Lying-Sitting on Side/Bed(QC): 88 Sit to Stand (QC): 88 Chair/Lxu-fj-Gtsha Xfer(QC): 88 Toilet Transfer (QC): 88 Car Transfer (QC): 88 Does the Patient Walk: No and Walking Goal NOT indicated Walk 10 feet (QC): 88 Walk 50ft with 2 Turns (QC): 88 Walk 150 ft (QC): 88 Walking 10ft on Uneven Surface: 88 1 Step (curb) (QC): 88 4 Steps (QC): 88 12 Steps (QC): 88 Picking up an Object (QC): 88 Wheel 50 feet with 2 turns (QC: 4 Type: Motorized Wheel 150 feet: 4 Type: Motorized PT Plan Problem List Problem List: Activity Tolerance, Functional Strength, Safety, Balance, Transfer, Bed Mobility, ROM Treatment/Plan Treatment Plan: Continue Plan of Care Treatment Plan: Bed Mobility, Education, Functional Activity Regulo, Functional Strength, Group Therapy, Safety, Therapeutic Exercise, Transfers Treatment Duration: Mar 17, 2020 Frequency: At least 5 of 7 days/Wk (IRF) Estimated Hrs Per Day: 1.5 hours per day Patient and/or Family Agrees t: Yes Safety Risks/Education Patient Education: Transfer Techniques, Correct Positioning, Safety Issues Teaching Recipient: Patient Teaching Methods: Discussion Response to Teaching: Verbalize Understanding Time/GCodes Time In: 0915 Time Out: 1045 Total Billed Treatment Time: 90 Total Billed Treatment 1, FA x5 75m, EX 15m Cotreat w/ OT for 90m NIRMAL CORREIA PTA Feb 29, 2020 12:04
--- NOTE | 2020-02-29 13:37 | Occupational Ther Daily Note ---
OT Current Status-Daily Note Subjective Pt laying in bed at start of session, agreeable to OT/PT cotreat. Pain Numeric Pain Scale: 5-Moderate Pain Location Body Site: Back Mental Status/Objective Attachments: White Catheter ADL-Treatment Therapy Code Descriptions/Definitions Functional [place] Measure: 0=Not Assessed/NA 4=Minimal Assistance 1=Total Assistance 5=Supervision or Setup 2=Maximal Assistance 6=Modified [place] 3=Moderate Assistance 7=Complete IndependenceSCALE: Activities may be completed with or without assistive devices. 7-Crdkcunzbo-dfxfems completes the activity by him/herself with no assistance from a helper. 5-Set-up or Clean-up Assistance-helper sets up or cleans up; patient completes activity. [place] assists only prior to or following the activity. 4-Supervision or Touching Assistance-helper provides verbal cues and/or touching/steadying and/or contact guard assistance as patient completes activity. Assistance may be provided throughout the activity or intermittently. 3-Partial/Moderate Assistance-helper does LESS THAN HALF the effort. [place] lifts, holds or supports trunk or limbs, but provides less than half the effort. 2-Substantial/Maximal Assistance-helper does MORE THAN HALF the effort. [place] lifts or holds trunk or limbs and provides more than half the effort. 7-Aejrrooxt-nljwfh does ALL the effort. Patient does none of the effort to complete the activity. Or, the assistance of 2 or more helpers is required for the patient to complete the activity. If activity was not attempted, code reason: 7-Patient Refused. 9-Not Applicable-not attempted and the patient did not perform the activity before the current illness, exacerbation or injury. 10-Not Attempted due to Environmental Limitations-(lack of equipment, weather restraints, etc.). 88-Not Attempted due to Medical Conditions or Safety Concerns. Oral Hygiene (QC): 5 (set up at recliner) Shower/Bathe Self (QC): 2 (Sponge Bath: Pt able to wash BUEs, chest, & abdomen. OT assisted pt with washing under pannus, BLEs, and periarea.) Upper Body Dressing (QC): 3 (Pt able to thread night gown over her head and arms. She required assistance managing down her back and down her sides as she performed sideleans in recliner.) On/Off Footwear: 1 (Pt dependent for task.) Other Treatment OT/PT cotreat due to increased medical complexity, decreased functional ability, and paraplegia requiring the skill of 2 disciplines which a rehabilitation services coordinator could not perform. OT focused on ADLs, UE placement, cues for safety and sequencing while PT focused on LE placement and overall gross movements. Pt laying in bed at start of session, rolled side to side (Assist x2) in order for laura sling peter cement. OT/PT attempted to transfer pt to large shower chair in order to wheel pt to large shower room. Pt reported pain in her back during transfer, once seated in the shower chair and partially supported by laura, pt reports increased back pain, difficulty breathing due to being in slouched posture, and she felt like she was going to slide out of chair. OT/PT assisted pt in readj usting with multiple trials, but pt continued to slide down after each readjustment. Pt agreed to complete sponge bath in recliner instead of shower as discussed due to safety concerns with her not properly being supported in chair and her buttocks sliding forward in chair after readjustments. Pt then transferred to recliner via [facility] where she participated in a sponge bath and dressing. Pt participated in LE ROM using leg banking center manager, utilizing her UEs for task. She then washed her hair using a shower cap with set up, brushed hair with set up, and brushed her teeth with set up assist. Pt demo'd understanding of yellow theraband exercises, completing x15 reps horizontal abduction and elbow extension. Pt then completed functional reaching activity with crossing midline in order to increase dynamic sitting balance during functional tasks. Post OT/PT cotreat, pt seated in recliner, call light in reach and all needs met. Education OT Patient Education: Correct positioning, Energy conservation, Exercise program, Modified ADL techniques, Progress toward Goal/Update tx plan, Purpose of tx/functional activities, Safety issues, Transfer techniques Teaching Recipient: Patient Teaching Methods: Discussion Response to Teaching: Verbalize Understanding OT Short Term Goals Short Term Goals Time Frame: Mar 03, 2020 Toileting hygiene: 2 Shower/bathe self: 3 OT Lace Paper Machine Operator Goals [facility] Goals Time Frame: Mar 17, 2020 Eating (QC): 6 Oral Hygiene (QC): 6 Toileting Hygiene (QC): 4 Shower/Bathe Self (QC): 4 Upper Body Dressing (QC): 5 Lower Body Dressing (QC): 3 On/Off Footwear (QC): 6 Additional Goals: 1-Demonstrate ADL Tasks, 2-Verbalize Understanding, 3- ImproveStrength/Regulo 1=Demonstrate adherence to instructed precautions during ADL tasks. 2=Patient will verbalize/demonstrate understanding of assistive devices/modifications for ADL. 3=Patient will improve strength/tolerance for activity to enable patient to perform ADL's. OT Education/Plan Problem List/Assessment Assessment: Decreased Activ Tolerance, Decreased UE Strength, Dependent Transfers, Impaired Bed Mobility, Impaired Funct Balance, Impaired I ADL's, Impaired Self-Care Skills Discharge Recommendations Plan/Recommendations: Continue POC Treatment Plan/Plan of Care Patient would benefit from OT for education, treatment and training to promote independence in ADL's, mobility, safety and/or upper extremity function for ADL's. Plan of Care: ADL Retraining, Caregiver Training, Concurrent Therapy, Functional Mobility, Group Exercise/Act as Ind, UE Funct Exercise/Act, W/C Management Training Treatment Duration: Mar 10, 2020 Frequency: At least 5 of 7 days/Wk (IRF) Estimated Hrs Per Day: 1.5 hours per day Agreement: Yes Rehab Potential: Poor Time/GCodes Start Time: 09:15 Stop Time: 10:45 Total Time Billed (hr/min): 90 Billed Treatment Time 1, ADL 4 (60'), FA 2 (30') WOLF EPPERSON OT Feb 29, 2020 13:37
[2020-02-29] MEDS: LEVOFLOXACIN 750 MG/150 ML IV 150 ML IV SCH (15:04)
[2020-02-29 16:07] VITALS: BP 109/72
[2020-02-29] MEDS: rOPINIRole 1 MG (REQUIP) TABLET PO SCH (22:10)
[2020-03-01 05:46] VITALS: BP 121/71
[2020-03-01] MEDS: inSUlin ASPART (NovoLOG) 1 UNIT/0.01 ML (CHARGE PER UNIT) SC SCH ×4 (06:06→21:36)
[2020-03-01] MEDS: CATHETER FLUSH 10 ML SYR IV SCH ×3 (06:06→20:55)
[2020-03-01] MEDS: predniSONE 20 MG TAB PO SCH (06:23)
[2020-03-01] MEDS: RT-ALBUTEROL HFA (PROAIR HFA) 8.5 GM IH SCH ×2 (07:09→18:09)
[2020-03-01 08:00] VITALS: BP 106/74
--- NOTE | 2020-03-01 08:00 | NUR ---
STATES NO NAUSEA SINCE LARGE BM LAST NIGHT. STATES BARIATRIC AIR BED MUCH MORE COMFORTABLE.
[2020-03-01] MEDS: ZONISAMIDE 100 MG CAP (ZONEGRAN) NON-FORMULARY PO SCH ×2 (08:58→20:53)
[2020-03-01] MEDS: LACTOBACILLUS ACIDOPHILUS (PROBIOTIC) CAPSULE PO SCH ×3 (08:58→17:17)
[2020-03-01] MEDS: KCL 10 MEQ TAB (MICRO K) PO SCH ×2 (08:59→20:59)
[2020-03-01] MEDS: toPIRamate 25 MG (TOPAMAX) TAB PO SCH (09:00)
[2020-03-01] MEDS: meTOprolol TARTRATE 25 MG (LOPRESSOR) TABLET PO SCH ×2 (09:00→20:53)
[2020-03-01] MEDS: GABAPENTIN 300 MG (NEURONTIN) CAP PO SCH ×3 (09:00→20:54)
[2020-03-01] MEDS: VENlafaxine 75 MG (EFFEXOR) TAB PO SCH ×4 (09:00→20:54)
[2020-03-01] MEDS: DOCUSATE SODIUM 100 MG (COLACE) CAP PO SCH ×2 (09:01→20:54)
[2020-03-01] MEDS: SENNOSIDES 8.6 MG (SENOKOT) TAB PO SCH ×2 (09:01→21:36)
[2020-03-01] MEDS: ARTIFICAL TEARS 0.4 ML UNIT DOSE (REFRESH PLUS) OU SCH ×3 (09:04→20:46)
[2020-03-01] MEDS: FUROSEMIDE 40 MG/4 ML INJ (LASIX) IVP SCH (09:04)
[2020-03-01] MEDS: ENOXAPARIN 40 MG/0.4 ML (LOVENOX) SYR SC SCH ×2 (09:04→20:48)
[2020-03-01] MEDS: polyethylene glycoL POWDER 17 GM (MIRALAX) PACK PO SCH ×2 (09:05→20:47)
[2020-03-01] MEDS: SENNA W/DOCUSATE (SENOKOT S) TABLET PO SCH ×2 (09:08→20:59)
--- NOTE | 2020-03-01 10:00 | NUR ---
BEHAVIORAL HEALTH CONSULT DONE BY [facility].
--- NOTE | 2020-03-01 10:22 | PM&R Progress Note ---
Subjective HPI/CC On Admission Date Seen by Provider: Mar 01, 2020 Time Seen by Provider: 10:30 Subjective/Events-last exam Fleets and suppository given yesterday and finally had large BM through the night last night O2 at 2L/min at night for SUKHWINDER/OHS and will qualify her for home O2 prior to DC w jordyn that may be Bariatric air bed is working very well for her now Skin checks are good Psych evaluation completed via telepsych and it seems to have helped her Patient with chronic mental illness chronically Co-treating with 2 therapists. Tying to find bariatric wheelchair to try to get her out of her room. Was at [facility] for 2 days prior to admit LOS 03/17/20 Catheter remains in Levaquin on board until end of March per pharmacy Discussed the fact that no surgical resolution is available from [facility] since the "damage is already done." Checked meds and labs Conferred wtih RN Reviewed therapy notes Review of Systems General: Fatigue Musculoskeletal: back pain Neurological: Weakness, Numbness, Incoordination Objective Exam Vital Signs Vital Signs Date Time Temp Pulse Resp B/P (MAP) Pulse Ox O2 Delivery O2 Flow Rate FiO2 03/01/20 09:00 Room Air 03/01/20 07:08 94 2.00 03/01/20 05:46 36.1 53 20 121/71 (88) 02/28/20 12:30 24 Capillary Refill : Less Than 3 Seconds General Appearance: No Apparent Distress, WD/WN, Chronically ill, Obese HEENT: PERRL/EOMI, Normal ENT Inspection, Pharynx Normal Neck: Full Range of Motion, Normal Inspection, Non Tender, Supple, Carotid Bruit Respiratory: Chest Non Tender, Lungs Clear, Normal Breath Sounds, No Accessory Muscle Use, No Respiratory Distress, Decreased Breath Sounds Cardiovascular: Regular Rate, Rhythm, No Gallop, No JVD, No Murmur, Normal Peripheral Pulses Gastrointestinal: Normal Bowel Sounds, No Organomegaly, No Pulsatile Mass, Non Tender, Soft Back: Normal Inspection, No CVA Tenderness, No Vertebral Tenderness Extremity: Normal Capillary Refill, Normal Inspection, Pedal Edema Neurologic/Psychiatric: Alert, Oriented x3, integrated circuits inspector II-XII Norm as Tested, Depressed Affect, Motor Weakness (T9 and below paralysis) Skin: Normal Color, Warm/Dry Lymphatic: No Adenopathy Results/Procedures Lab Patient resulted labs reviewed. FIM Transfers Therapy Code Descriptions/Definitions Functional [place] Measure: 0=Not Assessed/NA 4=Minimal Assistance 1=Total Assistance 5=Supervision or Setup 2=Maximal Assistance 6=Modified [place] 3=Moderate Assistance 7=Complete IndependenceSCALE: Activities may be completed with or without assistive devices. 9-Owcwgnsngf-ccqxvjk completes the activity by him/herself with no assistance from a helper. 5-Set-up or Clean-up Assistance-helper sets up or cleans up; patient completes activity. [place] assists only prior to or following the activity. 4-Supervision or Touching Assistance-helper provides verbal cues and/or touching/steadying and/or contact guard assistance as patient completes activity. Assistance may be provided throughout the activity or intermittently. 3-Partial/Moderate Assistance-helper does LESS THAN HALF the effort. [place] lifts, holds or supports trunk or limbs, but provides less than half the effort. 2-Substantial/Maximal Assistance-helper does MORE THAN HALF the effort. [place] lifts or holds trunk or limbs and provides more than half the effort. 4-Nyralwkkl-hgrlvi does ALL the effort. Patient does none of the effort to complete the activity. Or, the assistance of 2 or more helpers is required for the patient to complete the activity. If activity was not attempted, code reason: 7-Patient Refused. 9-Not Applicable-not attempted and the patient did not perform the activity before the current illness, exacerbation or injury. 10-Not Attempted due to Environmental Limitations-(lack of equipment, weather restraints, etc.). 88-Not Attempted due to Medical Conditions or Safety Concerns. Roll Left to Right (QC): 2 Sit to Lying (QC): 1 Sit to Stand (QC): 88 Chair/Sug-tk-Yfzbj Xfer(QC): 1 Car Transfer (QC): 88 Gait Training Does the Patient Walk?: No and Walking Goal NOT indicated Walk 10 feet (QC): 88 Walk 50 ft with 2 Turns(QC): 88 Walk 150 ft (QC): 88 Walking 10ft/uneven surface-QC: 88 Wheelchair Training Does the Pt Use a Wheelchair?: Yes Wheel 50 ft with 2 turns (QC): 88 Wheel 150 ft (QC): 88 Stair Training 1 Step (curb) (QC): 88 4 Steps (QC): 88 12 Steps (QC): 88 Balance Picking up an Object (QC): 88 ADL-Treatment Eating (QC): 6 (IND) Oral Hygiene (QC): 5 (set up at recliner) Shower/Bathe Self (QC): 2 (Sponge Bath: Pt able to wash BUEs, chest, & abdomen. OT assisted pt with washing under pannus, BLEs, and periarea.) Upper Body Dressing (QC): 3 (Pt able to thread night gown over her head and arms. She required assistance managing down her back and down her sides as she performed sideleans in recliner.) Lower Body Dressing (QC): 1 (TD) On/Off Footwear (QC): 1 (Pt dependent for task.) Toileting Hygiene (QC): 1 (TD) Assessment/Plan Assessment and Plan Assess & Plan/Chief Complaint Assessment: (1) Paraplegia at T9 level ICD Codes: G82.20 - Paraplegia, unspecified (2) Acute osteomyelitis of spine Status: Acute ICD Codes: M46.20 - Osteomyelitis of vertebra, site unspecified (3) White catheter in place ICD Codes: Z96.0 - Presence of urogenital implants (4) Neurogenic bladder ICD Codes: N31.9 - Neuromuscular dysfunction of bladder, unspecified (5) Chronic mental illness ICD Codes: F99 - Mental disorder, not otherwise specified (6) Depression ICD Codes: F32.9 - Major depressive disorder, single episode, unspecified (7) H/O gastric bypass ICD Codes: Z98.84 - Bariatric surgery status (8) Fecal incontinence ICD Codes: R15.9 - Full incontinence of feces (9) Acute respiratory failure with hypoxia Status: Acute ICD Codes: J96.01 - Acute respiratory failure with hypoxia (10) T2DM (type 2 diabetes mellitus) Status: Chronic ICD Codes: E11.9 - Type 2 diabetes mellitus without complications (11) Paresthesia of both legs Status: Acute ICD Codes: R20.2 - Paresthesia of skin (12) RLS (restless legs syndrome) Status: Chronic ICD Codes: G25.81 - Restless legs syndrome (13) Elevated liver function tests Status: Acute ICD Codes: R94.5 - Abnormal results of liver function studies (14) HLD (hyperlipidemia) Status: Chronic ICD Codes: E78.5 - Hyperlipidemia, unspecified (15) HTN (hypertension) Status: Chronic ICD Codes: I10 - Essential (primary) hypertension (16) Morbid obesity Status: Chronic ICD Codes: E66.01 - Morbid (severe) obesity due to excess calories (17) Shortness of breath Status: Acute ICD Codes: R06.02 - Shortness of breath (18) Hypoxia Status: Acute ICD Codes: R09.02 - Hypoxemia Plan: IRF Wheelchair mobility Increase ADL's in order to return home with caregivers Psych evaluation appreciated BM regimen to maintain to prevent narcotic bowel Neurogenic bladder will keep catheter for now since incontinence chronically could place her at skin breakdown issues Pain control Levaquin for osteomyelitis of spine IV form maintained until end of month Decreasing steroids by transitioning to PO form Doing well but once bariatric wheelchair obtained will be able to do more (1) Paraplegia at T9 level (2) Acute osteomyelitis of spine Status: Acute (3) White catheter in place (4) Neurogenic bladder (5) Chronic mental illness (6) Depression (7) H/O gastric bypass (8) Fecal incontinence (9) Acute respiratory failure with hypoxia Status: Acute (10) T2DM (type 2 diabetes mellitus) Status: Chronic (11) Paresthesia of both legs Status: Acute (12) RLS (restless legs syndrome) Status: Chronic (13) Elevated liver function tests Status: Acute (14) HLD (hyperlipidemia) Status: Chronic (15) HTN (hypertension) Status: Chronic (16) Morbid obesity Status: Chronic (17) Shortness of breath Status: Acute (18) Hypoxia Status: Acute KATELYN JENSEN DO Mar 01, 2020 10:22
--- NOTE | 2020-03-01 12:12 | Behavioral Health Consult ---
Consult- Consult Date Seen by Provider: Mar 01, 2020 Time Seen by Provider: 09:00 Date: 03-01-20 Referral: Dr. Sheffield [facility]#: [id number] CPT Code: 84206-92 Psychodiagnostic Examination 80128 Interactive Complexity, 1.5 unit(s) Start Time: 9:00 am Stop Time: 10:30 am Chief Complaint: depression Referral: Amber Ely is a 54-year-old, , female referred by Dr. Sheffield for a clinical diagnostic assessment. Information for this evaluation was gathered from self-report and clinical observation. Due to the continued concerns with COVID-19 and recommendations from the CDC, this therapy session was conducted through a Telehealth platform containing synchronized audio and visual components; the platform used was HIPAA-compatible. Amber gave verbal consent to do telehealth after being informed of the possible risks. Presenting Problem: According to medical records, patient has chronic mental illness and was recently hospitalized on February 24 due to paraplegia. Her records stated she lost function in her lower limbs very recently and may not get function in them again. The report therapist was given was that she had been intubated and has a long way to go concerning her recent physical health. Therapist spoke with the hospital nursing home social worker, Tabitha Matias, and she stated she has spoken with Amber several times and did not notice any depression, but also stated she expected some situational depression due to so many recent physical and health changes. Tabitha reported Amber needs 24/7 care and they are currently looking into whether her family can provide that for her. She reported she is unsure of a discharge date, but Amber will likely remain in the hospital for at least two more weeks. Therapist spoke with her nurse, Bonita, who reported Amber has had a flat affect, has spoken openly about her feelings, but has not been tearful. Bonita denied Amber making any statements about harming herself. Bonita also reported that Amber came to the hospital prescribed Effexor. Amber reported she has not been able to use her legs of for past two or three weeks and was also unaware that her back was broken until she was hospitalized. She stated she has had several different emotions due to the recent physical issues she has had. She stated over the past two weeks she has had memory problems which had never been a problem in the past and recently has been having more eyesight problems. Amber reported she has macular degeneration in her eyes, but her eyesight has worsened since being hospitalized. She reported she has been worrying about her dogs since she is not home to care for them but stated her great nephew has been taking care of them for her. Amber reported she has been worrying if her family will be able to care for her and if she will be to live with them. She stated she does not want to be a burden to them but does not want to have to move into a halfway. Amber denied worrying about anything else. Amber reported her mood has been better recently but stated she has had problems with depression. She denied feelings of worthlessness, guilt, problems concentrating, hypersomnia, insomnia, or any weight change. She stated she has had a decreased appetite, but stated she feels that has been due to having bowel problems recently. Amber denied any current suicidal or homicidal ideation or t hat being a problem in the past. Amber reported she feels her depression has been managed with the Effexor she is currently prescribed. Amber reported she felt she was handling her recent health issues well and did not feel that it was increasing her depression. Observations/Mental Status: Amber arrived on time for the appointment and was alone. Overall appearance was disheveled. Amber appeared to be a fair historian. Observed gait and gross motor movements indicated no clinically significant difficulties. Paresh general approach to the evaluation indicated interest. Orientation was intact for person, place, time, and situation. Amber evidenced fair understanding of the reason for the appointment. Paresh in-session behavior was cooperative. The predominant mood was calm, depressed and tearful at times with affect appropriate to expressed concerns and presenting problem. Immediate attention and concentration was unremarkable clinically during the interview. Memory functioning appeared to be intact. Level of intellectual functioning compared to same age peers was estimated to be in the average range. Thought processes were found to be generally logical, coherent and goal directed. Thought content appeared normal. Psychomotor functioning was within normal limits. Tone of voice was normal and controlled. Expressive speech was marked by fluent speech and language. Eye contact was fair. Insight was fair. Overall, style of interacting during the appointment was appropriate and motivated. Current/Previous Mental Health Treatment: Past psychiatric history was reported as reported she was diagnosed with depression many years ago and is receiving medication management through her PCP, Dr. Gifford. She denied currently participating in psychotherapy. History of self or other harm was denied. Cu rrent destructive behavior patterns: none indicated or reported. Family psychiatric history was reported as unremarkable. Educational and Vocational Histories: Current vocational status: currently receiving disability for the past 6-7 years due to her health.. 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 Family and Social Histories: Amber reported she currently lives with her great nephew and is planning on continuing to do so if she is able. She reported she knows she will have to move into a nursing facility if her great nephew is not able to help care for her. She reported she is very close with her family and stated they all live near her and would be able to help as needed. She reported she has never been but has one son and a niece and nephew who live in the same town. She denied having any social support. Summary of Assessment Information/Prognosis: Amber is a 54-year-old female. Following current assessment, presenting problem and symptoms appear consistent with a preliminary diagnosis of F33.1 Major Depressive Disorder, recurrent episode, moderate; F43.22 Adjustment disorder with anxiety. Overall, prognosis is estimated to be fair Strengths/Weaknesses: Strengths/Resources: accepts feedback, supportive family Liabilities/Barriers: limited social support, health issues Diagnostic Impressions: F33.1 Major Depressive Disorder, recurrent episode, moderate; F43.22 Adjustment disorder with anxiety Initial Treatment Plan/Recommendations: The recommendations currently include the following: continue with prescribed care of [facility] re[facility], individual outpatient psychotherapy once she is discharged to help her work through the recent changes she has been going through. Amber is recommended to return as needed should additional problems develop. MOE WHYTE Mar 01, 2020 12:12
--- NOTE | 2020-03-01 12:50 | Physical Therapy Daily Note ---
PT Daily Note-Current Subjective Pt laying Supine in bed upon arrival. Pt agrees to PT. Pt needs skill of 2 clinicians due to pt lack of balance and strength at this time. Pt is using Sugar lift to transfer. Pain Location: Medial Location Body Site: Back Pain Description: Ache Comment: Pt reports pain but not rated. Mental Status Patient Orientation: Person, Place, Time, Situation Attachments: White Catheter Transfers SCALE: Activities may be completed with or without assistive devices. 0-Iztoaiehfn-zwgglwe completes the activity by him/herself with no assistance from a helper. 5-Set-up or Clean-up Assistance-helper sets up or cleans up; patient completes activity. [place] assists only prior to or following the activity. 4-Supervision or Touching Assistance-helper provides verbal cues and/or touching/steadying and/or contact guard assistance as patient completes activity. Assistance may be provided throughout the activity or intermittently. 3-Partial/Moderate Assistance-helper does LESS THAN HALF the effort. [place] lifts, holds or supports trunk or limbs, but provides less than half the effort. 2-Substantial/Maximal Assistance-helper does MORE THAN HALF the effort. [place] lifts or holds trunk or limbs and provides more than half the effort. 3-Ltdvbbcib-thxlgo does ALL the effort. Patient does none of the effort to complete the activity. Or, the assistance of 2 or more helpers is required for the patient to complete the activity. If activity was not attempted, code reason: 7-Patient Refused. 9-Not Applicable-not attempted and the patient did not perform the activity before the current illness, exacerbation or injury. 10-Not Attempted due to Environmental Limitations-(lack of equipment, weather restraints, etc.). 88-Not Attempted due to Medical Conditions or Safety Concerns. Roll Left & Right (QC): 2 Sit to Lying (QC): 1 Lying to Sitting/Side of Bed(Q: 1 Sit to Stand (QC): 1 Chair/Euw-zt-Xaybo Xfer(QC): 1 Wheelchair Training Does the Pt Use a Wheelchair?: No Exercises Supine Ex: Ankle pumps, Quad Set, Heel Slides, Hip abd/add Supine Reps: 15 Treatments Pt completes Supine in bed with use of LE compliance investigator and AAROM from [employer]. Pt completes cleaning of upper body. Pt rolls for bed mobility to place bed pad and sugar lift sling. Pt sits at EOB for ~10m in sling for seated balance. Pt transfers to recliner and pt works on ADLs and UE Ex. Pt is repositioned and has all needs met at end of Rx, call light in hand. Assessment Current Status: Fair Progress Pt attempts to complete tasks independently but is limited by pain, weakness and lack of strength at this time. PT Short Term Goals Short Term Goals Time Frame: Mar 03, 2020 Roll Left & Right: 2 PT Quote Clerk Goals Detention Goals PT Quote Clerk Goals Time Frame: Mar 17, 2020 Roll Left & Right (QC): 2 Sit to Lying (QC): 88 Lying-Sitting on Side/Bed(QC): 88 Sit to Stand (QC): 88 Chair/Qre-bu-Nlqcv Xfer(QC): 88 Toilet Transfer (QC): 88 Car Transfer (QC): 88 Does the Patient Walk: No and Walking Goal NOT indicated Walk 10 feet (QC): 88 Walk 50ft with 2 Turns (QC): 88 Walk 150 ft (QC): 88 Walking 10ft on Uneven Surface: 88 1 Step (curb) (QC): 88 4 Steps (QC): 88 12 Steps (QC): 88 Picking up an Object (QC): 88 Wheel 50 feet with 2 turns (QC: 4 Type: Motorized Wheel 150 feet: 4 Type: Motorized PT Plan Problem List Problem List: Activity Tolerance, Functional Strength, Safety, Balance, Gait, Transfer, Bed Mobility, ROM Treatment/Plan Treatment Plan: Continue Plan of Care Treatment Plan: Bed Mobility, Education, Functional Activity Regulo, Functional Strength, Group Therapy, Safety, Therapeutic Exercise, Transfers Treatment Duration: Mar 17, 2020 Frequency: At least 5 of 7 days/Wk (IRF) Estimated Hrs Per Day: 1.5 hours per day Patient and/or Family Agrees t: Yes Safety Risks/Education Patient Education: Transfer Techniques, Correct Positioning, Safety Issues Teaching Recipient: Patient Teaching Methods: Discussion Response to Teaching: Verbalize Understanding Time/GCodes Time In: 1030 Time Out: 1200 Total Billed Treatment Time: 90 Total Billed Treatment 1, EX (15m) & FA x5 (75m) NIRMAL CORREIA [employer] Mar 01, 2020 12:50
--- NOTE | 2020-03-01 13:41 | Occupational Ther Daily Note ---
OT Current Status-Daily Note Subjective Pt laying in bed at start of session, agreeable to OT/PT cotreat. She reports pain in her mid back with laura transfer, but did not verbalize a pain rating. Mental Status/Objective Attachments: White Catheter ADL-Treatment Therapy Code Descriptions/Definitions Functional [place] Measure: 0=Not Assessed/NA 4=Minimal Assistance 1=Total Assistance 5=Supervision or Setup 2=Maximal Assistance 6=Modified [place] 3=Moderate Assistance 7=Complete IndependenceSCALE: Activities may be completed with or without assistive devices. 1-Fhqrzbrphu-rmrcyee completes the activity by him/herself with no assistance from a helper. 5-Set-up or Clean-up Assistance-helper sets up or cleans up; patient completes activity. [place] assists only prior to or following the activity. 4-Supervision or Touching Assistance-helper provides verbal cues and/or touching/steadying and/or contact guard assistance as patient completes activity. Assistance may be provided throughout the activity or intermittently. 3-Partial/Moderate Assistance-helper does LESS THAN HALF the effort. [place] lifts, holds or supports trunk or limbs, but provides less than half the effort. 2-Substantial/Maximal Assistance-helper does MORE THAN HALF the effort. [place] lifts or holds trunk or limbs and provides more than half the effort. 9-Dnetxoumg-rxbeaw does ALL the effort. Patient does none of the effort to complete the activity. Or, the assistance of 2 or more helpers is required for the patient to complete the activity. If activity was not attempted, code reason: 7-Patient Refused. 9-Not Applicable-not attempted and the patient did not perform the activity before the current illness, exacerbation or injury. 10-Not Attempted due to Environmental Limitations-(lack of equipment, weather restraints, etc.). 88-Not Attempted due to Medical Conditions or Safety Concerns. Eating (QC): 6 (Per pt report) Oral Hygiene (QC): 5 (set up at tray table.) Toileting Hygiene (QC): 1 (Dependent rolling side to side for cleansing) Other Treatment OT/PT cotreat due to increased medical complexity, decreased functional ability, and paraplegia requiring the skill of 2 disciplines which a rehab manager could not perform. OT focused on ADLs, UE placement, cues for safety and sequencing while PT focused on LE placement and overall gross movements. Pt laying in bed at start of session, performed PROM of LEs utilizing leg nursing specialist with UEs. Pt then rolled side to side multiple times for sling placement and for toilet hygiene. Pt then transferred via laura to EOB. Pt sat EOB ~10 mins in order to work on sitting balance while being supported by the laura. She reports she feels like she is sitting upright although she is leaning back (retropulsive). Pt then transferred to the recliner where she completed yellow TBand exercises x15 each horizontal abduction and elbow extension. Pt completed functional reaching across midline in order to increase dynamic sitting balance with functional tasks. Pt brushed her teeth and hair with set up at recliner. Post OT/PT session, pt sitting in recliner, call light in reach and all needs met. Education OT Patient Education: Correct positioning, Energy conservation, Exercise program, Modified ADL techniques, Progress toward Goal/Update tx plan, Purpose of tx/functional activities, Safety issues, Transfer techniques Teaching Recipient: Patient Teaching Methods: Discussion Response to Teaching: Verbalize Understanding OT Short Term Goals Short Term Goals Time Frame: Mar 03, 2020 Toileting hygiene: 2 Shower/bathe self: 3 OT Nut Sheller Goals Nut [place]ller Goals Time Frame: Mar 17, 2020 Eating (QC): 6 Oral Hygiene (QC): 6 Toileting Hygiene (QC): 4 Shower/Bathe Self (QC): 4 Upper Body Dressing (QC): 5 Lower Body Dressing (QC): 3 On/Off Footwear (QC): 6 Additional Goals: 1-Demonstrate ADL Tasks, 2-Verbalize Understanding, 3- ImproveStrength/Regulo 1=Demonstrate adherence to instructed precautions during ADL tasks. 2=Patient will verbalize/demonstrate understanding of assistive devices/modifica tions for ADL. 3=Patient will improve strength/tolerance for activity to enable patient to perform ADL's. OT Education/Plan Problem List/Assessment Assessment: Decreased Activ Tolerance, Decreased UE Strength, Dependent Transfers, Impaired Bed Mobility, Impaired Funct Balance, Impaired I ADL's, Impaired Self-Care Skills Discharge Recommendations Plan/Recommendations: Continue POC Treatment Plan/Plan of Care Patient would benefit from OT for education, treatment and training to promote independence in ADL's, mobility, safety and/or upper extremity function for ADL's. Plan of Care: ADL Retraining, Caregiver Training, Concurrent Therapy, F unctional Mobility, Group Exercise/Act as Ind, UE Funct Exercise/Act, W/C Management Training Treatment Duration: Mar 10, 2020 Frequency: At least 5 of 7 days/Wk (IRF) Estimated Hrs Per Day: 1.5 hours per day Agreement: Yes Rehab Potential: Poor Time/GCodes Start Time: 10:30 Stop Time: 12:00 Total Time Billed (hr/min): 90 Billed Treatment Time 1, ADL 2 (35'), FA 4 (55') WOLF EPPERSON OT Mar 01, 2020 13:41
[2020-03-01] MEDS: LEVOFLOXACIN 750 MG/150 ML IV 150 ML IV SCH (16:02)
[2020-03-01] MEDS: oxyCODONE ER 10 MG (OxyCONTIN CR) TAB PO SCH (17:17)
--- NOTE | 2020-03-01 17:30 | NUR ---
SAT UP IN CHAIR THIS AFTERNOON. STARTED ON SCHEDULED OXYCONTIN.
[2020-03-01 17:51] VITALS: BP 104/75
[2020-03-01] MEDS: rOPINIRole 1 MG (REQUIP) TABLET PO SCH (20:54)
[2020-03-01 21:00] VITALS: BP 99/68
[2020-03-02 05:15] LABS: BASOPHILS % (AUTO) 0 % (0-10); EOSINOPHILS # (AUTO) 0.2 10^3/uL (0.0-0.3); EOSINOPHILS % (AUTO) 1 % (0-10); HEMATOCRIT 41 % (35-52); HEMOGLOBIN 13.1 G/DL (11.5-16.0); LYMPHOCYTES # (AUTO) 1.7 X 10^3 (1.0-4.0); LYMPHOCYTES % (AUTO) 12 % (12-44); MEAN CORPUSCULAR HEMOGLOBIN 30 PG (25-34); MEAN CORPUSCULAR HGB CONC 32 G/DL (32-36); MEAN CORPUSCULAR VOLUME 93 FL (80-99); MEAN PLATELET VOLUME 10.7 FL (7.4-10.4); MONOCYTES # (AUTO) 1.2 X 10^3 (0.0-1.0); MONOCYTES % (AUTO) 9 % (0-12); NEUTROPHILS # (AUTO) 10.6 X 10^3 (1.8-7.8); NEUTROPHILS % (AUTO) 78 % (42-75); PLATELET COUNT 300 10^3/uL (130-400); WHITE BLOOD COUNT 13.6 10^3/uL (4.3-11.0)
[2020-03-02 05:16] VITALS: BP 112/71
[2020-03-02 05:47] LABS: ALANINE AMINOTRANSFERASE 56 U/L (0-55); ALBUMIN 3.1 GM/DL (3.2-4.5); ALKALINE PHOSPHATASE 170 U/L (40-136); BILIRUBIN,TOTAL 0.6 MG/DL (0.1-1.0); BUN/CREATININE RATIO 39; CARBON DIOXIDE 31 MMOL/L (21-32); CHLORIDE 92 MMOL/L (98-107); CREATININE SERUM 0.75 MG/DL (0.60-1.30); GFR ESTIMATED > 60; GLUCOSE 155 MG/DL (70-105); POTASSIUM 2.9 MMOL/L (3.6-5.0); SODIUM 136 MMOL/L (135-145); TOTAL PROTEIN 7.6 GM/DL (6.4-8.2)
[2020-03-02] MEDS: inSUlin ASPART (NovoLOG) 1 UNIT/0.01 ML (CHARGE PER UNIT) SC SCH ×4 (05:55→20:46)
[2020-03-02] MEDS: CATHETER FLUSH 10 ML SYR IV SCH ×2 (06:16→15:20)
[2020-03-02] MEDS: oxyCODONE ER 10 MG (OxyCONTIN CR) TAB PO SCH ×2 (06:16→17:01)
[2020-03-02] MEDS: predniSONE 20 MG TAB PO SCH (06:16)
[2020-03-02] MEDS: RT-ALBUTEROL HFA (PROAIR HFA) 8.5 GM IH SCH ×2 (06:56→20:12)
--- NOTE | 2020-03-02 08:39 | PM&R Progress Note ---
Subjective HPI/CC On Admission Date Seen by Provider: Mar 02, 2020 Time Seen by Provider: 10:30 Subjective/Events-last exam BM yesterday O2 at 2L/min at night for SUKHWINDER/OHS tolerated well Bariatric air bed is working very well for her now and will help decrease skin breakdown Psych evaluation appreciated and reviewed Patient with chronic mental illness chronically which she seems to be managing this crisis well Tying to find bariatric wheelchair to try to get her out of her room to help morale. Was at [facility] for 2 days prior to admit and that is an option at [place] but she really wants to go home and family can help assist LOS 03/17/20 Catheter remains in and will for the time being Levaquin on board until end of March per pharmacy IV tolerated Nystatin cream and powder under her breast will be used Checked meds and labs Conferred wtih RN Reviewed therapy notes Review of Systems General: Fatigue, Malaise Musculoskeletal: back pain Neurological: Weakness, Numbness, Incoordination Objective Exam Vital Signs Vital Signs Date Time Temp Pulse Resp B/P (MAP) Pulse Ox O2 Delivery O2 Flow Rate FiO2 03/02/20 10:13 35.8 86 91 21 03/02/20 09:00 Room Air 03/02/20 09:00 125/83 (97) 03/02/20 05:16 18 2.00 Capillary Refill : Less Than 3 Seconds General Appearance: No Apparent Distress, WD/WN, Chronically ill, Obese HEENT: PERRL/EOMI, Normal ENT Inspection, Pharynx Normal Neck: Full Range of Motion, Normal Inspection, Non Tender, Supple, Carotid Bruit Respiratory: Chest Non Tender, Lungs Clear, Normal Breath Sounds, No Accessory Muscle Use, No Respiratory Distress Cardiovascular: Regular Rate, Rhythm, No Gallop, No JVD, No Murmur, Normal Peripheral Pulses Gastrointestinal: Normal Bowel Sounds, No Organomegaly, No Pulsatile Mass, Non Tender, Soft Back: Normal Inspection, No CVA Tenderness, Decreased Range of Motion Extremity: Normal Capillary Refill, Normal Inspection, Pedal Edema Neurologic/Psychiatric: Alert, Oriented x3, corporate human resources manager II-XII Norm as Tested, Depressed Affect, Motor Weakness Skin: Normal Color, Warm/Dry Lymphatic: No Adenopathy Results/Procedures Lab Laboratory Tests 03/02/20 05:08 Patient resulted labs reviewed. FIM Transfers Therapy Code Descriptions/Definitions Functional [place] Measure: 0=Not Assessed/NA 4=Minimal Assistance 1=Total Assistance 5=Supervision or Setup 2=Maximal Assistance 6=Modified [place] 3=Moderate Assistance 7=Complete IndependenceSCALE: Activities may be completed with or without assistive devices. 3-Mdzqrwimsq-vmgtmdp completes the activity by him/herself with no assistance from a helper. 5-Set-up or Clean-up Assistance-helper sets up or cleans up; patient completes activity. [place] assists only prior to or following the activity. 4-Supervision or Touching Assistance-helper provides verbal cues and/or touching/steadying and/or contact guard assistance as patient completes a ctivity. Assistance may be provided throughout the activity or intermittently. 3-Partial/Moderate Assistance-helper does LESS THAN HALF the effort. [place] lifts, holds or supports trunk or limbs, but provides less than half the effort. 2-Substantial/Maximal Assistance-helper does MORE THAN HALF the effort. [place] lifts or holds trunk or limbs and provides more than half the effort. 2-Ftvpzmmpf-oikmgl does ALL the effort. Patient does none of the effort to complete the activity. Or, the assistance of 2 or more helpers is required for the patient to complete the activity. If activity was not attempted, code reason: 7-Patient Refused. 9-Not Applicable-not attempted and the patient did not perform the activity before the current illness, exacerbation or injury. 10-Not Attempted due to Environmental Limitations-(lack of equipment, weather restraints, etc.). 88-Not Attempted due to Medical Conditions or Safety Concerns. Roll Left to Right (QC): 2 Sit to Lying (QC): 1 Sit to Stand (QC): 1 Chair/Qhg-ba-Holvc Xfer(QC): 1 Car Transfer (QC): 88 Gait Training Does the Patient Walk?: No and Walking Goal NOT indicated Walk 10 feet (QC): 88 Walk 50 ft with 2 Turns(QC): 88 Walk 150 ft (QC): 88 Walking 10ft/uneven surface-QC: 88 Wheelchair Training Does the Pt Use a Wheelchair?: No Wheel 50 ft with 2 turns (QC): 88 Wheel 150 ft (QC): 88 Stair Training 1 Step (curb) (QC): 88 4 Steps (QC): 88 12 Steps (QC): 88 Balance Picking up an Object (QC): 88 ADL-Treatment Eating (QC): 6 (Per pt report) Oral Hygiene (QC): 5 (set up at tray table.) Shower/Bathe Self (QC): 2 (Sponge Bath: Pt able to wash BUEs, chest, & abdomen. OT assisted pt with washing under pannus, BLEs, and periarea.) Upper Body Dressing (QC): 3 (Pt able to thread night gown over her head and arm s. She required assistance managing down her back and down her sides as she performed sideleans in recliner.) Lower Body Dressing (QC): 1 (TD) On/Off Footwear (QC): 1 (Pt dependent for task.) Toileting Hygiene (QC): 1 (Dependent rolling side to side for cleansing) Assessment/Plan Assessment and Plan Assess & Plan/Chief Complaint Assessment: (1) Paraplegia at T9 level ICD Codes: G82.20 - Paraplegia, unspecified (2) Acute osteomyelitis of spine Status: Acute ICD Codes: M46.20 - Osteomyelitis of vertebra, site unspecified (3) White catheter in place ICD Codes: Z96.0 - Presence of urogenital implants (4) Neurogenic bladder ICD Codes: N31.9 - Neuromuscular dysfunction of bladder, unspecified (5) Chronic mental illness ICD Codes: F99 - Mental disorder, not otherwise specified (6) Depression ICD Codes: F32.9 - Major depressive disorder, single episode, unspecified (7) H/O gastric bypass ICD Codes: Z98.84 - Bariatric surgery status (8) Fecal incontinence ICD Codes: R15.9 - Full incontinence of feces (9) Acute respiratory failure with hypoxia Status: Acute ICD Codes: J96.01 - Acute respiratory failure with hypoxia (10) T2DM (type 2 diabetes mellitus) Status: Chronic ICD Codes: E11.9 - Type 2 diabetes mellitus without complications (11) Paresthesia of both legs Status: Acute ICD Codes: R20.2 - Paresthesia of skin (12) RLS (restless legs syndrome) Status: Chronic ICD Codes: G25.81 - Restless legs syndrome (13) Elevated liver function tests Status: Acute ICD Codes: R94.5 - Abnormal results of liver function studies (14) HLD (hyperlipidemia) Status: Chronic ICD Codes: E78.5 - Hyperlipidemia, unspecified (15) HTN (hypertension) Status: Chronic ICD Codes: I10 - Essential (primary) hypertension (16) Morbid obesity Status: Chronic ICD Codes: E66.01 - Morbid (severe) obesity due to excess calories (17) Shortness of breath Status: Acute ICD Codes: R06.02 - Shortness of breath (18) Hypoxia Status: Acute ICD Codes: R09.02 - Hypoxemia Plan: IRF Wheelchair mobility once bariatric wheelchair obtained Increase ADL's in order to return home with caregivers Psych evaluation appreciated BM regimen to maintain to prevent narcotic bowel Neurogenic bladder will keep catheter for now since incontinence chronically could place her at skin breakdown issues Pain control Levaquin for osteomyelitis of spine IV form maintained until end of month Decreasing steroids by transitioning to PO form Changed Lasix to PO form Doing well but once bariatric wheelchair obtained will be able to do more (1) Paraplegia at T9 level (2) Acute osteomyelitis of spine Status: Acute (3) White catheter in place (4) Neurogenic bladder (5) Chronic mental illness (6) Depression (7) H/O gastric bypass (8) Fecal incontinence (9) Acute respiratory failure with hypoxia Status: Acute (10) T2DM (type 2 diabetes mellitus) Status: Chronic (11) Paresthesia of both legs Status: Acute (12) RLS (restless legs syndrome) Status: Chronic (13) Elevated liver function tests Status: Acute (14) HLD (hyperlipidemia) Status: Chronic (15) HTN (hypertension) Status: Chronic (16) Morbid obesity Status: Chronic (17) Shortness of breath Status: Acute (18) Hypoxia Status: Acute KATELYN JENSEN DO Mar 02, 2020 08:39
[2020-03-02 09:00] VITALS: BP 125/83
--- NOTE | 2020-03-02 09:21 | Physical Therapy Daily Note ---
PT Daily Note-Current Subjective Patient in bed pre tx, agrees to PT, has 6/10 pain in her mid back, nurse aware. Will be co-treating with OT due to poor patient mobility, strength, endurance, paraplegia, the need to coordinate UE and LE during activity. Appearance Patient in recliner post tx with nurse call, phone, tray, all needs met. Legs elevated and on pillows for heel relief. Mental Status Patient Orientation: Person, Place, Situation Attachments: White Catheter Transfers SCALE: Activities may be completed with or without assistive devices. 2-Mwzviubcop-nmzpbqy completes the activity by him/herself with no assistance from a helper. 5-Set-up or Clean-up Assistance-helper sets up or cleans up; patient completes activity. [place] assists only prior to or following the activity. 4-Supervision or Touching Assistance-helper provides verbal cues and/or touching /steadying and/or contact guard assistance as patient completes activity. Assistance may be provided throughout the activity or intermittently. 3-Partial/Moderate Assistance-helper does LESS THAN HALF the effort. [place] lifts, holds or supports trunk or limbs, but provides less than half the effort. 2-Substantial/Maximal Assistance-helper does MORE THAN HALF the effort. [place] lifts or holds trunk or limbs and provides more than half the effort. 8-Wvabirxcc-etwfty does ALL the effort. Patient does none of the effort to complete the activity. Or, the assistance of 2 or more helpers is required for the patient to complete the activity. If activity was not attempted, code reason: 7-Patient Refused. 9-Not Applicable-not attempted and the patient did not perform the activity before the current illness, exacerbation or injury. 10-Not Attempted due to Environmental Limitations-(lack of equipment, weather restraints, etc.). 88-Not Attempted due to Medical Conditions or Safety Concerns. Roll Left & Right (QC): 3 (mod assist) Chair/Ggq-tk-Wjnsq Xfer(QC): 1 Sugar to shower chair, back to the bed and then to recliner. Patient had to assist rolling to each side many times to place and take out drawsheets and sugar sling. Patient can assist rolling with her upper body but cannot from the waist down. Patient had her back side cleaned before the shower. After getting in recliner patient performed grooming. Exercises BLE PROM, patient has less dorsiflexion ROM on the right side Treatments ROM, bed mobility and transfers, shower , cleaning, grooming Assessment Current Status: Poor Progress No change in mobility. PT Short Term Goals Short Term Goals Time Frame: Mar 03, 2020 Roll Left & Right: 2 PT Senior Product Development Manager Goals Skilled Nursing Goals PT Senior Product Development Manager Goals Time Frame: Mar 17, 2020 Roll Left & Right (QC): 2 Sit to Lying (QC): 88 Lying-Sitting on Side/Bed(QC): 88 Sit to Stand (QC): 88 Chair/Pqg-dx-Oiqjl Xfer(QC): 88 Toilet Transfer (QC): 88 Car Transfer (QC): 88 Does the Patient Walk: No and Walking Goal NOT indicated Walk 10 feet (QC): 88 Walk 50ft with 2 Turns (QC): 88 Walk 150 ft (QC): 88 Walking 10ft on Uneven Surface: 88 1 Step (curb) (QC): 88 4 Steps (QC): 88 12 Steps (QC): 88 Picking up an Object (QC): 88 Wheel 50 feet with 2 turns (QC: 4 Type: Motorized Wheel 150 feet: 4 Type: Motorized PT Plan Problem List Problem List: Activity Tolerance, Functional Strength, Safety, Balance, Gait, Transfer, Bed Mobility, ROM Treatment/Plan Treatment Plan: Continue Plan of Care Treatment Plan: Bed Mobility, Education, Functional Activity Regulo, Functional Strength, Group Therapy, Safety, Therapeutic Exercise, Transfers Treatment Duration: Mar 17, 2020 Frequency: At least 5 of 7 days/Wk (IRF) Estimated Hrs Per Day: 1.5 hours per day Patient and/or Family Agrees t: Yes Safety Risks/Education Patient Education: Transfer Techniques, Correct Positioning, Safety Issues Teaching Recipient: Patient Teaching Methods: Demonstration, Discussion Response to Teaching: Reinforcement Needed Time/GCodes Time In: 0800 Time Out: 0930 Total Billed Treatment Time: 90 Total Billed Treatment 1 visit FA 90' Co-treated for the whole '. PT performed rolling, transfers, BLE ROM, assist with shower and cleaning, positioning, OT performed shower, cleaning, grooming, UE activity and positioning. HIMANSHU MORGAN PT Mar 02, 2020 09:21
--- NOTE | 2020-03-02 09:28 | Occupational Ther Daily Note ---
OT Current Status-Daily Note Subjective Pt laying in bed at start of session, agreeable to OT/PT cotreat with focus on ADLs. She reports pain in her mid back as 6/10. Mental Status/Objective Patient Orientation: Normal For Age Attachments: White Catheter ADL-Treatment Therapy Code Descriptions/Definitions Functional [place] Measure: 0=Not Assessed/NA 4=Minimal Assistance 1=Total Assistance 5=Supervision or Setup 2=Maximal Assistance 6=Modified [place] 3=Moderate Assistance 7=Complete IndependenceSCALE: Activities may be completed with or without assistive devices. 8-Gshkqxjrts-yvxottw completes the activity by him/herself with no assistance from a helper. 5-Set-up or Clean-up Assistance-helper sets up or cleans up; patient completes activity. [place] assists only prior to or following the activity. 4-Supervision or Touching Assistance-helper provides verbal cues and/or touching/steadying and/or contact guard assistance as patient completes activity. Assistance may be provided throughout the activity or intermittently. 3-Partial/Moderate Assistance-helper does LESS THAN HALF the effort. [place] lifts, holds or supports trunk or limbs, but provides less than half the effort. 2-Substantial/Maximal Assistance-helper does MORE THAN HALF the effort. [place] lifts or holds trunk or limbs and provides more than half the effort. 9-Dzhfoivqp-oenizx does ALL the effort. Patient does none of the effort to complete the activity. Or, the assistance of 2 or more helpers is required for the patient to complete the activity. If activity was not attempted, code reason: 7-Patient Refused. 9-Not Applicable-not attempted and the patient did not perform the activity before the current illness, exacerbation or injury. 10-Not Attempted due to Environmental Limitations-(lack of equipment, weather restraints, etc.). 88-Not Attempted due to Medical Conditions or Safety Concerns. Oral Hygiene (QC): 5 (set up at tray table.) Bathing Location: L Arm, R Arm, Chest, Abdomen Shower/Bathe Self (QC): 2 (Pt able to wash UEs, abdomen and chest. Required total assist with lower body, and assistance washing under her stomach.) Toileting Hygiene (QC): 1 (Mod A to roll side to side in bed to clean buttocks.) Other Treatment OT/PT cotreat due to increased medical complexity, decreased functional ability, and paraplegia requiring the skill of 2 disciplines which a vascular technician could not perform. OT focused on ADLs, UE placement, cues for safety and sequencing while PT focused on LE placement and overall gross movements. Pt laying in bed at start of session, pt rolled side to side with mod A in order for cleansing buttocks and sling placement. Pt transferred to large shower chair and taken to large shower room. Pt completed showering and dressing, then returned to her room via shower chair. (note: pt donned/doffed hospital gown, thus no QC score given. Pt was able to thread arms in/out of gown, with min A managing gown down around her side.) Pt transferred to bed, rolling side to side with mod A in order to remove wet drop sheet. She completed AROM exercises x15 reps elbow flexion/extension and horizontal abduction as PT performed PROM on LEs. Pt transferred from bed to recliner via laura. Once upright, pt brushed her hair and teeth with set up assistance. Post OT/PT cotreat, pt sitting upright in recliner, legs propped on pillows with heels floating and all needs met. Education OT Patient Education: Correct positioning, Energy conservation, Exercise program, Modified ADL techniques, Progress toward Goal/Update tx plan, Purpose of tx/functional activities OT Short Term Goals Short Term Goals Time Frame: Mar 03, 2020 Toileting hygiene: 2 Shower/bathe self: 3 OT Residential Goals Residential Goals Time Frame: Mar 17, 2020 Eating (QC): 6 Oral Hygiene (QC): 6 Toileting Hygiene (QC): 4 Shower/Bathe Self (QC): 4 Upper Body Dressing (QC): 5 Lower Body Dressing (QC): 3 On/Off Footwear (QC): 6 Additional Goals: 1-Demonstrate ADL Tasks, 2-Verbalize Understanding, 3- ImproveStrength/Regulo 1=Demonstrate adherence to instructed precautions during ADL tasks. 2=Patient will verbalize/demonstrate understanding of assistive devices/modifications for ADL. 3=Patient will improve strength/tolerance for activity to enable patient to perform ADL's. OT Education/Plan Problem List/Assessment Assessment: Decreased Activ Tolerance, Decreased UE Strength, Dependent Transfers, Impaired Bed Mobility, Impaired Funct Balance, Impaired I ADL's, Impaired Self-Care Skills Discharge Recommendations Plan/Recommendations: Continue POC Treatment Plan/Plan of Care Patient would benefit from OT for education, treatment and training to promote independence in ADL's, mobility, safety and/or upper extremity function for ADL 's. Plan of Care: ADL Retraining, Caregiver Training, Concurrent Therapy, Functional Mobility, Group Exercise/Act as Ind, UE Funct Exercise/Act, W/C Management Training Treatment Duration: Mar 10, 2020 Frequency: At least 5 of 7 days/Wk (IRF) Estimated Hrs Per Day: 1.5 hours per day Agreement: Yes Rehab Potential: Poor Time/GCodes Start Time: 08:00 Stop Time: 09:30 Total Time Billed (hr/min): 90 Billed Treatment Time OT/PT cotreat x90 mins 1, ADL 5 (75'), EX (15') WOLF EPPERSON OT Mar 02, 2020 09:28
[2020-03-02] MEDS: GABAPENTIN 300 MG (NEURONTIN) CAP PO SCH ×3 (09:29→20:23)
[2020-03-02] MEDS: ZONISAMIDE 100 MG CAP (ZONEGRAN) NON-FORMULARY PO SCH ×2 (09:29→20:24)
[2020-03-02] MEDS: VENlafaxine 75 MG (EFFEXOR) TAB PO SCH ×4 (09:29→20:24)
[2020-03-02] MEDS: SENNA W/DOCUSATE (SENOKOT S) TABLET PO SCH ×2 (09:30→20:24)
[2020-03-02] MEDS: SENNOSIDES 8.6 MG (SENOKOT) TAB PO SCH ×2 (09:30→20:24)
[2020-03-02] MEDS: toPIRamate 25 MG (TOPAMAX) TAB PO SCH (09:30)
[2020-03-02] MEDS: KCL 10 MEQ TAB (MICRO K) PO SCH ×2 (09:31→17:01)
[2020-03-02] MEDS: meTOprolol TARTRATE 25 MG (LOPRESSOR) TABLET PO SCH ×2 (09:31→21:00)
[2020-03-02] MEDS: ENOXAPARIN 40 MG/0.4 ML (LOVENOX) SYR SC SCH ×2 (09:32→20:29)
[2020-03-02] MEDS: ARTIFICAL TEARS 0.4 ML UNIT DOSE (REFRESH PLUS) OU SCH ×3 (09:32→20:23)
[2020-03-02] MEDS: DOCUSATE SODIUM 100 MG (COLACE) CAP PO SCH ×2 (09:32→20:24)
[2020-03-02] MEDS: LACTOBACILLUS ACIDOPHILUS (PROBIOTIC) CAPSULE PO SCH ×3 (09:32→17:04)
[2020-03-02] MEDS: FUROSEMIDE 40 MG/4 ML INJ (LASIX) IVP SCH (09:33)
[2020-03-02] MEDS: polyethylene glycoL POWDER 17 GM (MIRALAX) PACK PO SCH ×2 (09:34→20:45)
[2020-03-02 10:13] VITALS: BP 112/71
--- NOTE | 2020-03-02 10:40 | NUR ---
Pastoral care visit.
--- NOTE | 2020-03-02 11:06 | NUR ---
CM/SS PATIENT CARE CONFERENCE Met with patient yesterday afternoon to review Conference summary, copy was provided to patient for her records at her request. Patient was up in recliner at bedside and appeared better overall than previous visit. She did comment she felt like she was cognitively more clear. Patient understands that plans for her discharge to next step care will be complex. Her strong desire is to return home to be cared for by family members with necessary assistive devices and equipment. Engaged in paul discussions with patient and family regarding her dependence for bowel and bladder, cleanliness, likely laura transition from bed to chair. Patient does understand that a community nursing facility ([facility]) should continue to be considered as an alternate plan or a first step bridge if necessary. BOBBY ANGUIANO/Jackelin CASH completed telehealth session yesterday. She reports her diagnostic impression to be Major Depressive Disorder and Adjustment Disorder with Anxiety, see her report in EMR. Recommendation will be to continue behavioral health supports as part of discharge plan. Jackelin also noted that patient reported being close with her family but denied any social support. Family members are employed and providing her care would require adjusting schedules and committment to caregiving responsibility. Continuing discharge planning process. Patient is in agreement to continued stay and participation in ARU therapies and team process.
[2020-03-02] MEDS: LEVOFLOXACIN 750 MG/150 ML IV 150 ML IV SCH (15:20)
[2020-03-02] MEDS: MICONAZOLE 2% POWDER (DESENEX AF) 90 GM TOP SCH ×2 (15:20→21:22)
[2020-03-02 16:25] VITALS: BP 91/60
[2020-03-02] MEDS: rOPINIRole 1 MG (REQUIP) TABLET PO SCH (20:24)
[2020-03-03] MEDS: predniSONE 20 MG TAB PO SCH (06:04)
[2020-03-03] MEDS: KCL 10 MEQ TAB (MICRO K) PO SCH ×2 (06:04→17:10)
[2020-03-03] MEDS: oxyCODONE ER 10 MG (OxyCONTIN CR) TAB PO SCH ×2 (06:05→17:29)
[2020-03-03] MEDS: CATHETER FLUSH 10 ML SYR IV SCH ×4 (06:05→21:39)
[2020-03-03] MEDS: inSUlin ASPART (NovoLOG) 1 UNIT/0.01 ML (CHARGE PER UNIT) SC SCH ×4 (06:06→20:54)
[2020-03-03 06:09] VITALS: BP 93/63
[2020-03-03] MEDS: RT-ALBUTEROL HFA (PROAIR HFA) 8.5 GM IH SCH ×2 (06:44→19:00)
[2020-03-03] MEDS: MICONAZOLE 2% POWDER (DESENEX AF) 90 GM TOP SCH ×2 (08:47→21:39)
[2020-03-03] MEDS: VENlafaxine 75 MG (EFFEXOR) TAB PO SCH ×4 (08:49→21:36)
[2020-03-03] MEDS: LACTOBACILLUS ACIDOPHILUS (PROBIOTIC) CAPSULE PO SCH ×3 (08:50→17:09)
[2020-03-03] MEDS: ZONISAMIDE 100 MG CAP (ZONEGRAN) NON-FORMULARY PO SCH ×2 (08:51→21:37)
[2020-03-03] MEDS: SENNOSIDES 8.6 MG (SENOKOT) TAB PO SCH ×2 (08:51→21:38)
[2020-03-03] MEDS: SENNA W/DOCUSATE (SENOKOT S) TABLET PO SCH ×2 (08:51→21:38)
[2020-03-03] MEDS: FUROSEMIDE 40 MG (LASIX) TAB PO SCH (08:52)
[2020-03-03] MEDS: ARTIFICAL TEARS 0.4 ML UNIT DOSE (REFRESH PLUS) OU SCH ×3 (08:52→21:36)
[2020-03-03] MEDS: DOCUSATE SODIUM 100 MG (COLACE) CAP PO SCH ×2 (08:52→21:36)
[2020-03-03] MEDS: toPIRamate 25 MG (TOPAMAX) TAB PO SCH (08:54)
[2020-03-03] MEDS: polyethylene glycoL POWDER 17 GM (MIRALAX) PACK PO SCH ×2 (08:54→21:38)
[2020-03-03] MEDS: ENOXAPARIN 40 MG/0.4 ML (LOVENOX) SYR SC SCH ×2 (08:55→21:37)
[2020-03-03 08:58] VITALS: BP 129/85
[2020-03-03] MEDS: meTOprolol TARTRATE 25 MG (LOPRESSOR) TABLET PO SCH ×2 (09:01→21:38)
[2020-03-03] MEDS: GABAPENTIN 300 MG (NEURONTIN) CAP PO SCH ×3 (09:08→21:36)
--- NOTE | 2020-03-03 09:54 | Occupational Ther Daily Note ---
OT Current Status-Daily Note Subjective Pt laying in bed at start of session, agreeable to OT/PT cotreat. She did not verbalize pain rating during tx, but reported "burning" in her mid back during transfers. Mental Status/Objective Attachments: White Catheter ADL-Treatment Therapy Code Descriptions/Definitions Functional [place] Measure: 0=Not Assessed/NA 4=Minimal Assistance 1=Total Assistance 5=Supervision or Setup 2=Maximal Assistance 6=Modified [place] 3=Moderate Assistance 7=Complete IndependenceSCALE: Activities may be completed with or without assistive devices. 9-Nkvaycxyvi-vjsdxmi completes the activity by him/herself with no assistance from a helper. 5-Set-up or Clean-up Assistance-helper sets up or cleans up; patient completes activity. [place] assists only prior to or following the activity. 4-Supervision or Touching Assistance-helper provides verbal cues and/or touching/steadying and/or contact guard assistance as patient completes activity. Assistance may be provided throughout the activity or intermittently. 3-Partial/Moderate Assistance-helper does LESS THAN HALF the effort. [place] lifts, holds or supports trunk or limbs, but provides less than half the effort. 2-Substantial/Maximal Assistance-helper does MORE THAN HALF the effort. [place] lifts or holds trunk or limbs and provides more than half the effort. 8-Frhdwpduo-bripyg does ALL the effort. Patient does none of the effort to complete the activity. Or, the assistance of 2 or more helpers is required for the patient to complete the activity. If activity was not attempted, code reason: 7-Patient Refused. 9-Not Applicable-not attempted and the patient did not perform the activity before the current illness, exacerbation or injury. 10-Not Attempted due to Environmental Limitations-(lack of equipment, weather restraints, etc.). 88-Not Attempted due to Medical Conditions or Safety Concerns. Oral Hygiene (QC): 5 (set up at tray table) Toileting Hygiene (QC): 1 (Pt rolled side to side in bed in order for OT to assist with washing buttocks, and periarea) Other Treatment OT/PT cotreat due to increased medical complexity, decreased functional ability, and paraplegia requiring the skill of 2 disciplines which a rehab liaison could not perform. OT focused on ADLs, UE placement, cues for safety and sequencing while PT focused on LE placement and overall gross movements. Pt laying in bed at start of session. Nursing present giving pt meds, she was able to take pills with water, independently holding water glass and bringing it to her mouth. Pt's BP 129/85, with O2 Sat as in low 90's. Pt cued to perform diaphragmatic breathing, raising O2 to 95%. Pt performed LE ROM using leg tree planter, utilizing her UEs for range. Pt then rolled side to side to cleans buttocks/periarea as well as for sling placement. Pt then sat EOB via laura in order to work on sitting balance. Pt felt like she was sitting more upright today than previous d ays. Pt transferred to recliner where OT/PT assisted pt in positioning her legs/floating her heels. Pt brushed her teeth and hair with set up assistance. Then she performed x15 reps each of the following BUE exercises using yellow theraband: horizontal abduction, elbow flexion, elbow extension, and shoulder flexion. Post OT/PT cotreat, pt seated in recliner, call light in reach and all needs met. Education OT Patient Education: Correct positioning, Energy conservation, Exercise program, Modified ADL techniques, Progress toward Goal/Update tx plan, Purpose of tx/functional activities, Transfer techniques Teaching Recipient: Patient Teaching Methods: Discussion Response to Teaching: Verbalize Understanding OT Short Term Goals Short Term Goals Time Frame: Mar 03, 2020 Toileting hygiene: 2 Shower/bathe self: 3 OT Mcfp Goals Silverware Buffer Goals Time Frame: Mar 17, 2020 Eating (QC): 6 Oral Hygiene (QC): 6 Toileting Hygiene (QC): 4 Shower/Bathe Self (QC): 4 Upper Body Dressing (QC): 5 Lower Body Dressing (QC): 3 On/Off Footwear (QC): 6 Additional Goals: 1-Demonstrate ADL Tasks, 2-Verbalize Understanding, 3-Improve Strength/Regulo 1=Demonstrate adherence to instructed precautions during ADL tasks. 2=Patient will verbalize/demonstrate understanding of assistive devices/modifications for ADL. 3=Patient will improve strength/tolerance for activity to enable patient to pe rform ADL's. OT Education/Plan Problem List/Assessment Assessment: Decreased Activ Tolerance, Decreased UE Strength, Dependent Transfers, Impaired Bed Mobility, Impaired Funct Balance, Impaired I ADL's, Impaired Self-Care Skills Discharge Recommendations Plan/Recommendations: Continue POC Treatment Plan/Plan of Care Patient would benefit from OT for education, treatment and training to promote independence in ADL's, mobility, safety and/or upper extremity function for ADL's. Plan of Care: ADL Retraining, Caregiver Training, Concurrent Therapy, Functional Mobility, Group Exercise/Act as Ind, UE Funct Exercise/Act, W/C Management Training Treatment Duration: Mar 10, 2020 Frequency: At least 5 of 7 days/Wk (IRF) Estimated Hrs Per Day: 1.5 hours per day Agreement: Yes Rehab Potential: Poor Time/GCodes Start Time: 08:15 Stop Time: 09:45 Total Time Billed (hr/min): 90 Billed Treatment Time OT/PT cotreat x90 mins 1, ADL 2 (30), EX (15'), FA 3 (45') WOLF EPPERSON OT Mar 03, 2020 09:54
--- NOTE | 2020-03-03 09:58 | Physical Therapy Daily Note ---
PT Daily Note-Current Subjective Pt laying Supine in bed upon arrival. Pt agrees to PT/OT co-treat. Pain Location: Medial Location Body Site: Back Comment: Pt reports burning in mid back when transferring from Supine to Sitting. Mental Status Patient Orientation: Person, Place, Time, Situation Attachments: White Catheter Transfers SCALE: Activities may be completed with or without assistive devices. 5-Potztlshjv-vjsztqk completes the activity by him/herself with no assistance from a helper. 5-Set-up or Clean-up Assistance-helper sets up or cleans up; patient completes activity. [place] assists only prior to or following the activity. 4-Supervision or Touching Assistance-helper provides verbal cues and/or touching/steadying and/or contact guard assistance as patient completes activity. Assistance may be provided throughout the activity or intermittently. 3-Partial/Moderate Assistance-helper does LESS THAN HALF the effort. [place] lifts, holds or supports trunk or limbs, but provides less than half the effort. 2-Substantial/Maximal Assistance-helper does MORE THAN HALF the effort. [place] lifts or holds trunk or limbs and provides more than half the effort. 8-Xvetdjjvy-weqnjt does ALL the effort. Patient does none of the effort to complete the activity. Or, the assistance of 2 or more helpers is required for the patient to complete the activity. If activity was not attempted, code reason: 7-Patient Refused. 9-Not Applicable-not attempted and the patient did not perform the activity before the current illness, exacerbation or injury. 10-Not Attempted due to Environmental Limitations-(lack of equipment, weather restraints, etc.). 88-Not Attempted due to Medical Conditions or Safety Concerns. Roll Left & Right (QC): 2 Sit to Lying (QC): 1 Lying to Sitting/Side of Bed(Q: 1 Chair/Ykr-ch-Zimzn Xfer(QC): 1 Gait Training Does the Patient Walk?: No and Walking Goal NOT indicated Wheelchair Training Does the Pt Use a Wheelchair?: No Exercises Supine Ex: Ankle pumps, Quad Set, Heel Slides, Hip abd/add Supine Reps: 15 Treatments OT/PT cotreat due to increased medical complexity, decreased functional ability, and paraplegia requiring the skill of 2 disciplines which a hitch technician could not perform. OT focused on ADLs, UE placement, cues for safety and sequencing while PT focused on LE placement and overall gross movements. Pt laying in bed at start of session. Nursing present giving pt meds, she was able to take pills with water, independently holding water glass and bringing it to her mouth. Pt's BP 129/85, with O2 Sat as in low 90's. Pt cued to perform diaphragmatic b reathing, raising O2 to 95%. Pt performed LE ROM using leg lever miller, utilizing her UEs for range. Pt then rolled side to side to cleans buttocks/periarea as well as for sling placement. Pt then sat EOB via laura in order to work on sitting balance. Pt felt like she was sitting more upright today than previous days. Pt transferred to recliner where OT/PT assisted pt in positioning her legs/floating her heels. Pt brushed her teeth and hair with set up assistance. Then she performed x15 reps each of the following BUE exercises using yellow theraband: horizontal abduction, elbow flexion, elbow extension, and shoulder flexion. Post OT/PT cotreat, pt seated in recliner, call light in reach and all needs met. Assessment Current Status: Fair Progress Pt is limited by pain as well as lack of feeling in B LE. PT Short Term Goals Short Term Goals Time Frame: Mar 03, 2020 Roll Left & Right: 2 PT Internal Communications Writer Goals Senior Care Goals PT Senior Care Goals Time Frame: Mar 17, 2020 Roll Left & Right (QC): 2 Sit to Lying (QC): 88 Lying-Sitting on Side/Bed(QC): 88 Sit to Stand (QC): 88 Chair/Gjf-od-Otlow Xfer(QC): 88 Toilet Transfer (QC): 88 Car Transfer (QC): 88 Does the Patient Walk: No and Walking Goal NOT indicated Walk 10 feet (QC): 88 Walk 50ft with 2 Turns (QC): 88 Walk 150 ft (QC): 88 Walking 10ft on Uneven Surface: 88 1 Step (curb) (QC): 88 4 Steps (QC): 88 12 Steps (QC): 88 Picking up an Object (QC): 88 Wheel 50 feet with 2 turns (QC: 4 Type: Motorized Wheel 150 feet: 4 Type: Motorized PT Plan Problem List Problem List: Activity Tolerance, Functional Strength, Safety, Balance, Transfer, Bed Mobility Treatment/Plan Treatment Plan: Continue Plan of Care Treatment Plan: Bed Mobility, Education, Functional Activity Regulo, Functional Strength, Group Therapy, Safety, Therapeutic Exercise, Transfers Treatment Duration: Mar 17, 2020 Frequency: At least 5 of 7 days/Wk (IRF) Estimated Hrs Per Day: 1.5 hours per day Patient and/or Family Agrees t: Yes Safety Risks/Education Patient Education: Transfer Techniques, Correct Positioning, Safety Issues Teaching Recipient: Patient Teaching Methods: Discussion Response to Teaching: Verbalize Understanding Time/GCodes Time In: 815 Time Out: 945 Total Billed Treatment Time: 90 Total Billed Treatment 1, EX (20m), FA x5 (70m) Co-treat w/OT for 90m GRACENIRMAL PTITMAN FEATHER SEPARATOR Mar 03, 2020 09:58
[2020-03-03] MEDS ORDERED: PANTOPRAZOLE 40 MG (PROTONIX) TAB PO NR (10:45)
--- NOTE | 2020-03-03 11:10 | PM&R Progress Note ---
Subjective HPI/CC On Admission Date Seen by Provider: Mar 03, 2020 Time Seen by Provider: 11:15 Subjective/Events-last exam O2 at night used GERD sx's and TUMS used so will start PPI Wheelchair bariatric type has been found and will be able to mobilize out of the room now PICC line in place Overall attitude improved Catheter remains in and will for the time being and may need this termite renewal inspector and change to SP catheter in the future Levaquin on board until end march per pharmacy IV tolerated Nystatin cream and powder used under breast which is working well Checked meds and labs Conferred wtih RN Reviewed therapy notes Review of Systems General: Fatigue Genitourinary: Retention Neurological: Weakness, Numbness, Incoordination Objective Exam Vital Signs Vital Signs Date Time Temp Pulse Resp B/P (MAP) Pulse Ox O2 Delivery O2 Flow Rate FiO2 03/03/20 16:00 36.4 75 16 93/63 (73) 91 Room Air 03/03/20 06:09 2.00 03/02/20 10:13 21 Capillary Refill : Less Than 3 Seconds General Appearance: No Apparent Distress, WD/WN, Chronically ill, Obese HEENT: PERRL/EOMI, Normal ENT Inspection, Pharynx Normal Neck: Full Range of Motion, Normal Inspection, Non Tender, Supple, Carotid Bruit Respiratory: Chest Non Tender, Lungs Clear, Normal Breath Sounds, No Accessory Muscle Use, No Respiratory Distress Cardiovascular: Regular Rate, Rhythm, No Gallop, No JVD, No Murmur, Normal Peripheral Pulses Gastrointestinal: Normal Bowel Sounds, No Organomegaly, No Pulsatile Mass, Non Tender, Soft Back: Normal Inspection, No CVA Tenderness, Decreased Range of Motion Extremity: Normal Capillary Refill, Normal Inspection, Pedal Edema Neurologic/Psychiatric: Alert, Oriented x3, litigation services manager II-XII Norm as Tested, Depressed Affect, Motor Weakness Skin: Normal Color, Warm/Dry Lymphatic: No Adenopathy Results/Procedures Lab Patient resulted labs reviewed. FIM Transfers Therapy Code Descriptions/Definitions Functional [place] Measure: 0=Not Assessed/NA 4=Minimal Assistance 1=Total Assistance 5=Supervision or Setup 2=Maximal Assistance 6=Modified [place] 3=Moderate Assistance 7=Complete IndependenceSCALE: Activities may be completed with or without assistive devices. 0-Hqjezzghgn-advpkml completes the activity by him/herself with no assistance from a helper. 5-Set-up or Clean-up Assistance-helper sets up or cleans up; patient completes activity. [place] assists only prior to or following the activity. 4-Supervision or Touching Assistance-helper provides verbal cues and/or touching/steadying and/or contact guard assistance as patient completes activ ity. Assistance may be provided throughout the activity or intermittently. 3-Partial/Moderate Assistance-helper does LESS THAN HALF the effort. [place] lifts, holds or supports trunk or limbs, but provides less than half the effort. 2-Substantial/Maximal Assistance-helper does MORE THAN HALF the effort. [place] lifts or holds trunk or limbs and provides more than half the effort. 5-Ulebujxer-okckjm does ALL the effort. Patient does none of the effort to complete the activity. Or, the assistance of 2 or more helpers is required for the patient to complete the activity. If activity was not attempted, code reason: 7-Patient Refused. 9-Not Applicable-not attempted and the patient did not perform the activity before the current illness, exacerbation or injury. 10-Not Attempted due to Environmental Limitations-(lack of equipment, weather restraints, etc.). 88-Not Attempted due to Medical Conditions or Safety Concerns. Roll Left to Right (QC): 2 Sit to Lying (QC): 1 Sit to Stand (QC): 1 Chair/Oly-rf-Jtbyd Xfer(QC): 1 Car Transfer (QC): 88 Gait Training Does the Patient Walk?: No and Walking Goal NOT indicated Walk 10 feet (QC): 88 Walk 50 ft with 2 Turns(QC): 88 Walk 150 ft (QC): 88 Walking 10ft/uneven surface-QC: 88 Wheelchair Training Does the Pt Use a Wheelchair?: No Wheel 50 ft with 2 turns (QC): 88 Wheel 150 ft (QC): 88 Stair Training 1 Step (curb) (QC): 88 4 Steps (QC): 88 12 Steps (QC): 88 Balance Picking up an Object (QC): 88 ADL-Treatment Eating (QC): 6 (Per pt report) Oral Hygiene (QC): 5 (set up at tray table) Bathing Location: L Arm, R Arm, Chest, Abdomen Shower/Bathe Self (QC): 2 (Pt able to wash UEs, abdomen and chest. Required total assist with lower body, and assistance washing under her stomach.) Upper Body Dressing (QC): 3 (Pt able to thread night gown over her head and arms. She required assistance managing down her back and down her sides as she performed sideleans in recliner.) Lower Body Dressing (QC): 1 (TD) On/Off Footwear (QC): 1 (Pt dependent for task.) Toileting Hygiene (QC): 1 (Pt rolled side to side in bed in order for OT to assist with washing buttocks, and periarea) Assessment/Plan Assessment and Plan Assess & Plan/Chief Complaint Assessment: (1) Paraplegia at T9 level ICD Codes: G82.20 - Paraplegia, unspecified (2) Acute osteomyelitis of spine Status: Acute ICD Codes: M46.20 - Osteomyelitis of vertebra, site unspecified (3) White catheter in place ICD Codes: Z96.0 - Presence of urogenital implants (4) Neurogenic bladder ICD Codes: N31.9 - Neuromuscular dysfunction of bladder, unspecified (5) Chronic mental illness ICD Codes: F99 - Mental disorder, not otherwise specified (6) Depression ICD Codes: F32.9 - Major depressive disorder, single episode, unspecified (7) H/O gastric bypass ICD Codes: Z98.84 - Bariatric surgery status (8) Fecal incontinence ICD Codes: R15.9 - Full incontinence of feces (9) Acute respiratory failure with hypoxia Status: Acute ICD Codes: J96.01 - Acute respiratory failure with hypoxia (10) T2DM (type 2 diabetes mellitus) Status: Chronic ICD Codes: E11.9 - Type 2 diabetes mellitus without complications (11) Paresthesia of both legs Status: Acute ICD Codes: R20.2 - Paresthesia of skin (12) RLS (restless legs syndrome) Status: Chronic ICD Codes: G25.81 - Restless legs syndrome (13) Elevated liver function tests Status: Acute ICD Codes: R94.5 - Abnormal results of liver function studies (14) HLD (hyperlipidemia) Status: Chronic ICD Codes: E78.5 - Hyperlipidemia, unspecified (15) HTN (hypertension) Status: Chronic ICD Codes: I10 - Essential (primary) hypertension (16) Morbid obesity Status: Chronic ICD Codes: E66.01 - Morbid (severe) obesity due to excess calories (17) Shortness of breath Status: Acute ICD Codes: R06.02 - Shortness of breath (18) Hypoxia Status: Acute ICD Codes: R09.02 - Hypoxemia Plan: IRF Wheelchair mobility now that bariatric wheelchair obtained Increase ADL's in order to return home with caregivers nephew and daughter Psych evaluation appreciated BM regimen to maintain to prevent narcotic bowel Neurogenic bladder will keep catheter for now since incontinence chronically could place her at skin breakdown issues Pain control Levaquin for osteomyelitis of spine IV form maintained until end of month Decreasing steroids by transitioning to PO form Changed Lasix to PO form Long acting narcotic maintained along with break through pain med (1) Paraplegia at T9 level (2) Acute osteomyelitis of spine Status: Acute (3) White catheter in place (4) Neurogenic bladder (5) Chronic mental illness (6) Depression (7) H/O gastric bypass (8) Fecal incontinence (9) Acute respiratory failure with hypoxia Status: Acute (10) T2DM (type 2 diabetes mellitus) Status: Chronic (11) Paresthesia of both legs Status: Acute (12) RLS (restless legs syndrome) Status: Chronic (13) Elevated liver function tests Status: Acute (14) HLD (hyperlipidemia) Status: Chronic (15) HTN (hypertension) Status: Chronic (16) Morbid obesity Status: Chronic (17) Shortness of breath Status: Acute (18) Hypoxia Status: Acute KATELYN JENSEN DO Mar 03, 2020 11:10
--- NOTE | 2020-03-03 13:24 | NUR ---
Received dietary consult for DM education. Provided pt with handout on CHO counting, and discussed various serving sizes of foods in relation to her prescribed diet (75g/m). Discussed adequate protein intake and fiber's role in normal body functions and in relation to DM management. Discussed snack options and healthy choices of CHOs for snacks. Pt stated she had no questions at this time. Discussed that if she had any questions prior to discharge to let her nurse know and I would be back to answer anything she needed. Provided contact information should she have questions upon discharge. Miladys Kaufman, MS, RD, LD
[2020-03-03] MEDS: LEVOFLOXACIN 750 MG/150 ML IV 150 ML IV SCH (15:19)
[2020-03-03 16:00] VITALS: BP 93/63
[2020-03-03 21:33] VITALS: BP 94/62
[2020-03-03] MEDS: rOPINIRole 1 MG (REQUIP) TABLET PO SCH (21:36)
[2020-03-04] MEDS: inSUlin ASPART (NovoLOG) 1 UNIT/0.01 ML (CHARGE PER UNIT) SC SCH ×4 (05:47→20:39)
[2020-03-04 06:00] VITALS: BP 93/63
[2020-03-04] MEDS: CATHETER FLUSH 10 ML SYR IV SCH ×3 (06:01→21:54)
[2020-03-04] MEDS: oxyCODONE ER 10 MG (OxyCONTIN CR) TAB PO SCH ×2 (06:02→17:19)
[2020-03-04] MEDS: KCL 10 MEQ TAB (MICRO K) PO SCH ×2 (06:02→17:20)
[2020-03-04] MEDS: RT-ALBUTEROL HFA (PROAIR HFA) 8.5 GM IH SCH (07:19)
[2020-03-04] MEDS: GABAPENTIN 300 MG (NEURONTIN) CAP PO SCH ×3 (09:04→21:49)
[2020-03-04] MEDS: FUROSEMIDE 40 MG (LASIX) TAB PO SCH (09:04)
[2020-03-04] MEDS: SENNA W/DOCUSATE (SENOKOT S) TABLET PO SCH ×2 (09:04→21:52)
[2020-03-04] MEDS: ENOXAPARIN 40 MG/0.4 ML (LOVENOX) SYR SC SCH ×2 (09:04→21:45)
[2020-03-04] MEDS: PANTOPRAZOLE 40 MG (PROTONIX) TAB PO SCH (09:05)
[2020-03-04] MEDS: LACTOBACILLUS ACIDOPHILUS (PROBIOTIC) CAPSULE PO SCH ×3 (09:05→17:19)
[2020-03-04] MEDS: VENlafaxine 75 MG (EFFEXOR) TAB PO SCH ×4 (09:05→21:49)
[2020-03-04] MEDS: ARTIFICAL TEARS 0.4 ML UNIT DOSE (REFRESH PLUS) OU SCH ×3 (09:05→21:46)
[2020-03-04] MEDS: SENNOSIDES 8.6 MG (SENOKOT) TAB PO SCH ×2 (09:05→21:53)
[2020-03-04] MEDS: meTOprolol TARTRATE 25 MG (LOPRESSOR) TABLET PO SCH ×3 (09:05→22:02)
[2020-03-04] MEDS: DOCUSATE SODIUM 100 MG (COLACE) CAP PO SCH ×2 (09:05→21:52)
[2020-03-04] MEDS: ZONISAMIDE 100 MG CAP (ZONEGRAN) NON-FORMULARY PO SCH ×2 (09:05→21:53)
[2020-03-04] MEDS: toPIRamate 25 MG (TOPAMAX) TAB PO SCH (09:05)
[2020-03-04] MEDS: MICONAZOLE 2% POWDER (DESENEX AF) 90 GM TOP SCH ×2 (09:06→21:48)
[2020-03-04] MEDS: polyethylene glycoL POWDER 17 GM (MIRALAX) PACK PO SCH ×2 (09:06→21:52)
[2020-03-04 09:09] VITALS: BP 114/59
--- NOTE | 2020-03-04 11:36 | PM&R Progress Note ---
Subjective HPI/CC On Admission Date Seen by Provider: Mar 04, 2020 Time Seen by Provider: 11:45 Subjective/Events-last exam O2 at night used and I suspect her to need that long-term GERD sx's and TUMS used 2 days ago so will started PPI Wheelchair bariatric type has been found and will be able to mobilize out of the room now PICC line in place without difficulty Overall attitude improved BM yesterday Sugars are OK Blurry vision still present Catheter remains in and will for the time being and may need this longterm and change to SP catheter in the future Levaquin on board until end march per pharmacy IV tolerated Nystatin cream and powder used under breast which is working well Checked meds and labs Conferred wtih RN Reviewed therapy notes Review of Systems General: Fatigue Musculoskeletal: back pain Neurological: Weakness, Numbness, Incoordination Objective Exam Vital Signs Vital Signs Date Time Temp Pulse Resp B/P (MAP) Pulse Ox O2 Delivery O2 Flow Rate FiO2 03/04/20 09:09 114/59 (77) 03/04/20 09:00 Room Air 03/04/20 07:20 94 03/04/20 06:00 36.4 75 16 03/03/20 21:00 2.00 03/02/20 10:13 21 Capillary Refill : Less Than 3 Seconds General Appearance: No Apparent Distress, WD/WN, Chronically ill, Obese HEENT: PERRL/EOMI, Normal ENT Inspection, Pharynx Normal Neck: Full Range of Motion, Normal Inspection, Non Tender, Supple, Carotid Bruit Respiratory: Chest Non Tender, Lungs Clear, Normal Breath Sounds, No Accessory Muscle Use, No Respiratory Distress Cardiovascular: Regular Rate, Rhythm, No Gallop, No JVD, No Murmur, Normal Peripheral Pulses Gastrointestinal: Normal Bowel Sounds, No Organomegaly, No Pulsatile Mass, Non Tender, Soft Back: Normal Inspection, No CVA Tenderness, Decreased Range of Motion Extremity: Normal Capillary Refill, Normal Inspection, Pedal Edema Neurologic/Psychiatric: Alert, Oriented x3, material handler 2nd shift II-XII Norm as Tested, Depressed Affect, Motor Weakness Skin: Normal Color, Warm/Dry Lymphatic: No Adenopathy Results/Procedures Lab Patient resulted labs reviewed. FIM Transfers Therapy Code Descriptions/Definitions Functional [place] Measure: 0=Not Assessed/NA 4=Minimal Assistance 1=Total Assistance 5=Supervision or Setup 2=Maximal Assistance 6=Modified [place] 3=Moderate Assistance 7=Complete IndependenceSCALE: Activities may be completed with or without assistive devices. 0-Lrayzfrwwt-ytredfj completes the activity by him/herself with no assistance from a helper. 5-Set-up or Clean-up Assistance-helper sets up or cleans up; patient completes activity. [place] assists only prior to or following the activity. 4-Supervision or Touching Assistance-helper provides verbal cues and/or touch ing/steadying and/or contact guard assistance as patient completes activity. Assistance may be provided throughout the activity or intermittently. 3-Partial/Moderate Assistance-helper does LESS THAN HALF the effort. [place] lifts, holds or supports trunk or limbs, but provides less than half the effort. 2-Substantial/Maximal Assistance-helper does MORE THAN HALF the effort. [place] lifts or holds trunk or limbs and provides more than half the effort. 5-Jcsvigzrb-kggxvl does ALL the effort. Patient does none of the effort to complete the activity. Or, the assistance of 2 or more helpers is required for the patient to complete the activity. If activity was not attempted, code reason: 7-Patient Refused. 9-Not Applicable-not attempted and the patient did not perform the activity before the current illness, exacerbation or injury. 10-Not Attempted due to Environmental Limitations-(lack of equipment, weather restraints, etc.). 88-Not Attempted due to Medical Conditions or Safety Concerns. Roll Left to Right (QC): 2 Sit to Lying (QC): 1 Sit to Stand (QC): 1 Chair/Kgn-cw-Lcnwz Xfer(QC): 1 Car Transfer (QC): 88 Gait Training Does the Patient Walk?: No and Walking Goal NOT indicated Walk 10 feet (QC): 88 Walk 50 ft with 2 Turns(QC): 88 Walk 150 ft (QC): 88 Walking 10ft/uneven surface-QC: 88 Wheelchair Training Does the Pt Use a Wheelchair?: No Wheel 50 ft with 2 turns (QC): 88 Wheel 150 ft (QC): 88 Stair Training 1 Step (curb) (QC): 88 4 Steps (QC): 88 12 Steps (QC): 88 Balance Picking up an Object (QC): 88 ADL-Treatment Eating (QC): 6 (Per pt report) Oral Hygiene (QC): 5 (set up at tray table) Bathing Location: L Arm, R Arm, Chest, Abdomen Shower/Bathe Self (QC): 2 (Pt able to wash UEs, abdomen and chest. Required total assist with lower body, and assistance washing under her stomach.) Upper Body Dressing (QC): 3 (Pt able to thread night gown over her head and arms. She required assistance managing down her back and down her sides as she performed sideleans in recliner.) Lower Body Dressing (QC): 1 (TD) On/Off Footwear (QC): 1 (Pt dependent for task.) Toileting Hygiene (QC): 1 (Pt rolled side to side in bed in order for OT to assist with washing buttocks, and periarea) Assessment/Plan Assessment and Plan Assess & Plan/Chief Complaint Assessment: (1) Paraplegia at T9 level ICD Codes: G82.20 - Paraplegia, unspecified (2) Acute osteomyelitis of spine Status: Acute ICD Codes: M46.20 - Osteomyelitis of vertebra, site unspecified (3) White catheter in place ICD Codes: Z96.0 - Presence of urogenital implants (4) Neurogenic bladder ICD Codes: N31.9 - Neuromuscular dysfunction of bladder, unspecified (5) Chronic mental illness ICD Codes: F99 - Mental disorder, not otherwise specified (6) Depression ICD Codes: F32.9 - Major depressive disorder, single episode, unspecified (7) H/O gastric bypass ICD Codes: Z98.84 - Bariatric surgery status (8) Fecal incontinence ICD Codes: R15.9 - Full incontinence of feces (9) Acute respiratory failure with hypoxia Status: Acute ICD Codes: J96.01 - Acute respiratory failure with hypoxia (10) T2DM (type 2 diabetes mellitus) Status: Chronic ICD Codes: E11.9 - Type 2 diabetes mellitus without complications (11) Paresthesia of both legs Status: Acute ICD Codes: R20.2 - Paresthesia of skin (12) RLS (restless legs syndrome) Status: Chronic ICD Codes: G25.81 - Restless legs syndrome (13) Elevated liver function tests Status: Acute ICD Codes: R94.5 - Abnormal results of liver function studies (14) HLD (hyperlipidemia) Status: Chronic ICD Codes: E78.5 - Hyperlipidemia, unspecified (15) HTN (hypertension) Status: Chronic ICD Codes: I10 - Essential (primary) hypertension (16) Morbid obesity Status: Chronic ICD Codes: E66.01 - Morbid (severe) obesity due to excess calories (17) Shortness of breath Status: Acute ICD Codes: R06.02 - Shortness of breath (18) Hypoxia Status: Acute ICD Codes: R09.02 - Hypoxemia GERD Plan: IRF Wheelchair mobility now that bariatric wheelchair obtained Increase ADL's in order to return home with caregivers nephew and daughter Psych evaluation appreciated BM regimen to maintain to prevent narcotic bowel Neurogenic bladder will keep catheter for now since incontinence chronically could place her at skin breakdown issues Pain control PPI Levaquin for osteomyelitis of spine IV form maintained until end of month Decreasing steroids by transitioning to PO form Changed Lasix to PO form Long acting narcotic maintained along with break through pain med (1) Paraplegia at T9 level (2) Acute osteomyelitis of spine Status: Acute (3) White catheter in place (4) Neurogenic bladder (5) Chronic mental illness (6) Depression (7) H/O gastric bypass (8) Fecal incontinence (9) Acute respiratory failure with hypoxia Status: Acute (10) T2DM (type 2 diabetes mellitus) Status: Chronic (11) Paresthesia of both legs Status: Acute (12) RLS (restless legs syndrome) Status: Chronic (13) Elevated liver function tests Status: Acute (14) HLD (hyperlipidemia) Status: Chronic (15) HTN (hypertension) Status: Chronic (16) Morbid obesity Status: Chronic (17) Shortness of breath Status: Acute (18) Hypoxia Status: Acute KATELYN JENSEN DO Mar 04, 2020 11:36
--- NOTE | 2020-03-04 11:54 | Physical Therapy Daily Note ---
PT Daily Note-Current Subjective Pt. in bed and states she would like to b up in recliner for a while. "you know i cant feel anything in my legs right"? Pain Location: No Pain Reported Mental Status Patient Orientation: Normal For Age Attachments: SCD's Transfers SCALE: Activities may be completed with or without assistive devices. 3-Alhmtazoes-nhfkijj completes the activity by him/herself with no assistance from a helper. 5-Set-up or Clean-up Assistance-helper sets up or cleans up; patient completes activity. [place] assists only prior to or following the activity. 4-Supervision or Touching Assistance-helper provides verbal cues and/or touching/steadying and/or contact guard assistance as patient completes ac tivity. Assistance may be provided throughout the activity or intermittently. 3-Partial/Moderate Assistance-helper does LESS THAN HALF the effort. [place] lifts, holds or supports trunk or limbs, but provides less than half the effort. 2-Substantial/Maximal Assistance-helper does MORE THAN HALF the effort. [place] lifts or holds trunk or limbs and provides more than half the effort. 5-Nazwgjtkj-ijilwa does ALL the effort. Patient does none of the effort to complete the activity. Or, the assistance of 2 or more helpers is required for the patient to complete the activity. If activity was not attempted, code reason: 7-Patient Refused. 9-Not Applicable-not attempted and the patient did not perform the activity before the current illness, exacerbation or injury. 10-Not Attempted due to Environmental Limitations-(lack of equipment, weather restraints, etc.). 88-Not Attempted due to Medical Conditions or Safety Concerns. Roll Left & Right (QC): 2 Sit to Lying (QC): 1 Lying to Sitting/Side of Bed(Q: 1 Chair/Nki-ek-Shqok Xfer(QC): 1 Sugar TRF bed to recliner, rolling left and right max assist of 2 with pt assisting with UEs to a degree. Gait Training Does the Patient Walk?: No and Walking Goal NOT indicated Exercises Supine Ex: Ankle pumps, Rolling, Heel Slides, Hip abd/add Supine Reps: 15 max assist all exercise Assessment Current Status: Fair Progress PT Short Term Goals Short Term Goals Time Frame: Mar 03, 2020 Roll Left & Right: 2 PT Nursing Home Goals Nursing Home Goals PT Pony Ride Operator Goals Time Frame: Mar 17, 2020 Roll Left & Right (QC): 2 Sit to Lying (QC): 88 Lying-Sitting on Side/Bed(QC): 88 Sit to Stand (QC): 88 Chair/Ecr-qx-Paocn Xfer(QC): 88 Toilet Transfer (QC): 88 Car Transfer (QC): 88 Does the Patient Walk: No and Walking Goal NOT indicated Walk 10 feet (QC): 88 Walk 50ft with 2 Turns (QC): 88 Walk 150 ft (QC): 88 Walking 10ft on Uneven Surface: 88 1 Step (curb) (QC): 88 4 Steps (QC): 88 12 Steps (QC): 88 Picking up an Object (QC): 88 Wheel 50 feet with 2 turns (QC: 4 Type: Motorized Wheel 150 feet: 4 Type: Motorized PT Plan Treatment/Plan Treatment Plan: Continue Plan of Care Treatment Plan: Bed Mobility, Education, Functional Activity Regulo, Functional Strength, Group Therapy, Safety, Therapeutic Exercise, Transfers Treatment Duration: Mar 17, 2020 Frequency: At least 5 of 7 days/Wk (IRF) Estimated Hrs Per Day: 1.5 hours per day Patient and/or Family Agrees t: Yes Safety Risks/Education Patient Education: Disease Process, Safety Issues Teaching Recipient: Patient Response to Teaching: Reinforcement Needed Time/GCodes Time In: 810 Time Out: 840 Total Billed Treatment Time: 30 Total Billed Treatment 1,EX10m,FA20m OSNIYA BELTRAN PTA Mar 04, 2020 11:54
[2020-03-04] MEDS: LEVOFLOXACIN 750 MG/150 ML IV 150 ML IV SCH (16:11)
[2020-03-04 17:53] VITALS: BP 95/64
[2020-03-04 18:29] VITALS: BP 95/64
[2020-03-04] MEDS: rOPINIRole 1 MG (REQUIP) TABLET PO SCH (21:49)
[2020-03-05 05:53] VITALS: BP 103/66
[2020-03-05] MEDS: inSUlin ASPART (NovoLOG) 1 UNIT/0.01 ML (CHARGE PER UNIT) SC SCH ×2 (06:24→11:20)
[2020-03-05] MEDS: CATHETER FLUSH 10 ML SYR IV SCH ×3 (06:38→20:36)
[2020-03-05] MEDS: KCL 10 MEQ TAB (MICRO K) PO SCH ×2 (06:39→17:20)
[2020-03-05] MEDS: oxyCODONE ER 10 MG (OxyCONTIN CR) TAB PO SCH ×2 (06:39→17:20)
[2020-03-05 07:49] VITALS: BP 113/73
[2020-03-05] MEDS: ENOXAPARIN 40 MG/0.4 ML (LOVENOX) SYR SC SCH ×2 (08:07→20:35)
[2020-03-05] MEDS: ARTIFICAL TEARS 0.4 ML UNIT DOSE (REFRESH PLUS) OU SCH ×3 (08:07→20:38)
[2020-03-05] MEDS: LACTOBACILLUS ACIDOPHILUS (PROBIOTIC) CAPSULE PO SCH ×3 (08:07→17:19)
[2020-03-05] MEDS: ZONISAMIDE 100 MG CAP (ZONEGRAN) NON-FORMULARY PO SCH ×2 (08:08→20:39)
[2020-03-05] MEDS: VENlafaxine 75 MG (EFFEXOR) TAB PO SCH ×4 (08:08→20:39)
[2020-03-05] MEDS: PANTOPRAZOLE 40 MG (PROTONIX) TAB PO SCH (08:08)
[2020-03-05] MEDS: toPIRamate 25 MG (TOPAMAX) TAB PO SCH (08:08)
[2020-03-05] MEDS: meTOprolol TARTRATE 25 MG (LOPRESSOR) TABLET PO SCH ×2 (08:08→20:40)
[2020-03-05] MEDS: FUROSEMIDE 40 MG (LASIX) TAB PO SCH (08:09)
[2020-03-05] MEDS: GABAPENTIN 300 MG (NEURONTIN) CAP PO SCH ×3 (08:09→20:39)
[2020-03-05] MEDS: DOCUSATE SODIUM 100 MG (COLACE) CAP PO SCH ×2 (08:16→19:55)
[2020-03-05] MEDS: SENNOSIDES 8.6 MG (SENOKOT) TAB PO SCH ×2 (08:17→19:57)
[2020-03-05] MEDS: SENNA W/DOCUSATE (SENOKOT S) TABLET PO SCH ×2 (08:17→19:57)
[2020-03-05] MEDS: polyethylene glycoL POWDER 17 GM (MIRALAX) PACK PO SCH ×2 (08:17→19:56)
[2020-03-05] MEDS: MICONAZOLE 2% POWDER (DESENEX AF) 90 GM TOP SCH ×2 (08:19→20:41)
--- NOTE | 2020-03-05 11:00 | NUR ---
NOTED DURING ASSESSMENT, BRUISING ON LOWER LEFT ABDOMINAL AREA WITH A HARDENED AREA. WILL PASS ON TO NEXT SHIFT AND CONTINUE TO MONITOR.
--- NOTE | 2020-03-05 12:06 | PM&R Progress Note ---
Subjective HPI/CC On Admission Date Seen by Provider: Mar 05, 2020 Time Seen by Provider: 12:15 Subjective/Events-last exam Had a large BM after laxatives given White maintained for now and likely mcc Sugars are really good since weaned steroids off to will check just daily Pain is well controlled Bariatric air bed is helpful O2 at night tolerated well Lungs remain clear Checked meds and labs Conferred wtih RN Reviewed therapy notes Review of Systems General: Fatigue Genitourinary: Retention Musculoskeletal: back pain Objective Exam Vital Signs Vital Signs Date Time Temp Pulse Resp B/P (MAP) Pulse Ox O2 Delivery O2 Flow Rate FiO2 03/05/20 09:00 Room Air 03/05/20 07:49 93 113/73 (86) 03/05/20 05:53 36.4 18 95 03/04/20 20:41 2.00 03/04/20 18:29 21 Capillary Refill : Less Than 3 Seconds General Appearance: No Apparent Distress, WD/WN, Chronically ill, Obese HEENT: PERRL/EOMI, Normal ENT Inspection, Pharynx Normal Neck: Full Range of Motion, Normal Inspection, Non Tender, Supple, Carotid Bruit Respiratory: Chest Non Tender, Lungs Clear, Normal Breath Sounds, No Accessory Muscle Use, No Respiratory Distress Cardiovascular: Regular Rate, Rhythm, No Gallop, No JVD, No Murmur, Normal Peripheral Pulses Gastrointestinal: Normal Bowel Sounds, No Organomegaly, No Pulsatile Mass, Non Tender, Soft Back: Normal Inspection, No CVA Tenderness, Decreased Range of Motion Extremity: Normal Capillary Refill, Normal Inspection, Pedal Edema Neurologic/Psychiatric: Alert, Oriented x3, director software development II-XII Norm as Tested, Depressed Affect, Motor Weakness Skin: Normal Color, Warm/Dry Lymphatic: No Adenopathy Results/Procedures Lab Patient resulted labs reviewed. FIM Transfers Therapy Code Descriptions/Definitions Functional [place] Measure: 0=Not Assessed/NA 4=Minimal Assistance 1=Total Assistance 5=Supervision or Setup 2=Maximal Assistance 6=Modified [place] 3=Moderate Assistance 7=Complete IndependenceSCALE: Activities may be completed with or without assistive devices. 1-Hzkcvejnlf-wdxaazz completes the activity by him/herself with no assistance from a helper. 5-Set-up or Clean-up Assistance-helper sets up or cleans up; patient completes activity. [place] assists only prior to or following the activity. 4-Supervision or Touching Assistance-helper provides verbal cues and/or touching/steadying and/or contact guard assistance as patient completes activity. Assistance may be provided throughout the activity or intermittently. 3-Partial/Moderate Assistance-helper does LESS THAN HALF the effort. [place] lifts, holds or supports trunk or limbs, but provides less than half the effort. 2-Substantial/Maximal Assistance-helper does MORE THAN HALF the effort. [place] lifts or holds trunk or limbs and provides more than half the effort. 6-Hmtsknkgw-qoshvt does ALL the effort. Patient does none of the effort to complete the activity. Or, the assistance of 2 or more helpers is required for the patient to complete the activity. If activity was not attempted, code reason: 7-Patient Refused. 9-Not Applicable-not attempted and the patient did not perform the activity before the current illness, exacerbation or injury. 10-Not Attempted due to Environmental Limitations-(lack of equipment, weather restraints, etc.). 88-Not Attempted due to Medical Conditions or Safety Concerns. Roll Left to Right (QC): 2 Sit to Lying (QC): 1 Sit to Stand (QC): 1 Chair/Pwd-sd-Gkzdh Xfer(QC): 1 Car Transfer (QC): 88 Gait Training Does the Patient Walk?: No and Walking Goal NOT indicated Walk 10 feet (QC): 88 Walk 50 ft with 2 Turns(QC): 88 Walk 150 ft (QC): 88 Walking 10ft/uneven surface-QC: 88 Wheelchair Training Does the Pt Use a Wheelchair?: No Wheel 50 ft with 2 turns (QC): 88 Wheel 150 ft (QC): 88 Stair Training 1 Step (curb) (QC): 88 4 Steps (QC): 88 12 Steps (QC): 88 Balance Picking up an Object (QC): 88 ADL-Treatment Eating (QC): 6 (Per pt report) Oral Hygiene (QC): 5 (set up at tray table) Bathing Location: L Arm, R Arm, Chest, Abdomen Shower/Bathe Self (QC): 2 (Pt able to wash UEs, abdomen and chest. Required total assist with lower body, and assistance washing under her stomach.) Upper Body Dressing (QC): 3 (Pt able to thread night gown over her head and arms. She required assistance managing down her back and down her sides as she performed sideleans in recliner.) Lower Body Dressing (QC): 1 (TD) On/Off Footwear (QC): 1 (Pt dependent for task.) Toileting Hygiene (QC): 1 (Pt rolled side to side in bed in order for OT to assist with washing buttocks, and periarea) Assessment/Plan Assessment and Plan Assess & Plan/Chief Complaint Assessment: (1) Paraplegia at T9 level ICD Codes: G82.20 - Paraplegia, unspecified (2) Acute osteomyelitis of spine Status: Acute ICD Codes: M46.20 - Osteomyelitis of vertebra, site unspecified (3) White catheter in place ICD Codes: Z96.0 - Presence of urogenital implants (4) Neurogenic bladder ICD Codes: N31.9 - Neuromuscular dysfunction of bladder, unspecified (5) Chronic mental illness ICD Codes: F99 - Mental disorder, not otherwise specified (6) Depression ICD Codes: F32.9 - Major depressive disorder, single episode, unspecified (7) H/O gastric bypass ICD Codes: Z98.84 - Bariatric surgery status (8) Fecal incontinence ICD Codes: R15.9 - Full incontinence of feces (9) Acute respiratory failure with hypoxia Status: Acute ICD Codes: J96.01 - Acute respiratory failure with hypoxia (10) T2DM (type 2 diabetes mellitus) Status: Chronic ICD Codes: E11.9 - Type 2 diabetes mellitus without complications (11) Paresthesia of both legs Status: Acute ICD Codes: R20.2 - Paresthesia of skin (12) RLS (restless legs syndrome) Status: Chronic ICD Codes: G25.81 - Restless legs syndrome (13) Elevated liver function tests Status: Acute ICD Codes: R94.5 - Abnormal results of liver function studies (14) HLD (hyperlipidemia) Status: Chronic ICD Codes: E78.5 - Hyperlipidemia, unspecified (15) HTN (hypertension) Status: Chronic ICD Codes: I10 - Essential (primary) hypertension (16) Morbid obesity Status: Chronic ICD Codes: E66.01 - Morbid (severe) obesity due to excess calories (17) Shortness of breath Status: Acute ICD Codes: R06.02 - Shortness of breath (18) Hypoxia Status: Acute ICD Codes: R09.02 - Hypoxemia GERD Plan: IRF Wheelchair mobility with bariatric wheelchair Increase ADL's in order to return home with caregivers nephew and daughter Psych evaluation appreciated BM regimen to maintain to prevent narcotic bowel Neurogenic bladder will likely need SP cath in the future but keep in-dwelling for now Pain control PPI with TUMS Levaquin for osteomyelitis of spine IV form maintained until end of month Steroids completed Changed Lasix to PO form Long acting narcotic maintained along with break through pain med Accucheck only in am daily (1) Paraplegia at T9 level (2) Acute osteomyelitis of spine Status: Acute (3) White catheter in place (4) Neurogenic bladder (5) Chronic mental illness (6) Depression (7) H/O gastric bypass (8) Fecal incontinence (9) Acute respiratory failure with hypoxia Status: Acute (10) T2DM (type 2 diabetes mellitus) Status: Chronic (11) Paresthesia of both legs Status: Acute (12) RLS (restless legs syndrome) Status: Chronic (13) Elevated liver function tests Status: Acute (14) HLD (hyperlipidemia) Status: Chronic (15) HTN (hypertension) Status: Chronic (16) Morbid obesity Status: Chronic (17) Shortness of breath Status: Acute (18) Hypoxia Status: Acute KATELYN JENSEN DO Mar 05, 2020 12:06
[2020-03-05] MEDS: LEVOFLOXACIN 750 MG/150 ML IV 150 ML IV SCH (15:16)
[2020-03-05 17:00] VITALS: BP 104/56
[2020-03-05] MEDS: rOPINIRole 1 MG (REQUIP) TABLET PO SCH (20:39)
[2020-03-06 04:44] LABS: BASOPHILS % (AUTO) 0 % (0-10); EOSINOPHILS # (AUTO) 0.3 10^3/uL (0.0-0.3); EOSINOPHILS % (AUTO) 4 % (0-10); HEMATOCRIT 36 % (35-52); HEMOGLOBIN 11.4 G/DL (11.5-16.0); LYMPHOCYTES # (AUTO) 1.3 X 10^3 (1.0-4.0); LYMPHOCYTES % (AUTO) 21 % (12-44); MEAN CORPUSCULAR HEMOGLOBIN 30 PG (25-34); MEAN CORPUSCULAR HGB CONC 32 G/DL (32-36); MEAN CORPUSCULAR VOLUME 94 FL (80-99); MEAN PLATELET VOLUME 10.5 FL (7.4-10.4); MONOCYTES # (AUTO) 0.4 X 10^3 (0.0-1.0); MONOCYTES % (AUTO) 7 % (0-12); NEUTROPHILS # (AUTO) 4.2 X 10^3 (1.8-7.8); NEUTROPHILS % (AUTO) 68 % (42-75); PLATELET COUNT 174 10^3/uL (130-400); RED CELL DISTRIBUTION WIDTH 16.8 % (10.0-14.5); WHITE BLOOD COUNT 6.1 10^3/uL (4.3-11.0)
[2020-03-06 05:06] LABS: ALANINE AMINOTRANSFERASE 39 U/L (0-55); ALBUMIN 2.7 GM/DL (3.2-4.5); ALKALINE PHOSPHATASE 150 U/L (40-136); BILIRUBIN,TOTAL 0.5 MG/DL (0.1-1.0); BUN/CREATININE RATIO 29; CALCIUM 8.5 MG/DL (8.5-10.1); CARBON DIOXIDE 31 MMOL/L (21-32); CHLORIDE 97 MMOL/L (98-107); CREATININE SERUM 0.63 MG/DL (0.60-1.30); GFR ESTIMATED > 60; GLUCOSE 93 MG/DL (70-105); POTASSIUM 3.2 MMOL/L (3.6-5.0); SODIUM 138 MMOL/L (135-145); TOTAL PROTEIN 6.5 GM/DL (6.4-8.2)
[2020-03-06] MEDS: CATHETER FLUSH 10 ML SYR IV SCH ×3 (06:03→19:57)
[2020-03-06] MEDS: KCL 10 MEQ TAB (MICRO K) PO SCH ×2 (06:05→16:19)
[2020-03-06] MEDS: oxyCODONE ER 10 MG (OxyCONTIN CR) TAB PO SCH ×2 (06:05→16:34)
[2020-03-06 06:34] VITALS: BP 101/69
[2020-03-06] MEDS: ZONISAMIDE 100 MG CAP (ZONEGRAN) NON-FORMULARY PO SCH ×2 (07:34→19:47)
[2020-03-06] MEDS: ARTIFICAL TEARS 0.4 ML UNIT DOSE (REFRESH PLUS) OU SCH ×3 (07:34→19:48)
[2020-03-06] MEDS: ENOXAPARIN 40 MG/0.4 ML (LOVENOX) SYR SC SCH ×2 (07:34→19:47)
[2020-03-06] MEDS: LACTOBACILLUS ACIDOPHILUS (PROBIOTIC) CAPSULE PO SCH ×3 (07:35→16:19)
[2020-03-06] MEDS: GABAPENTIN 300 MG (NEURONTIN) CAP PO SCH ×3 (07:36→19:48)
[2020-03-06] MEDS: FUROSEMIDE 40 MG (LASIX) TAB PO SCH (07:36)
[2020-03-06] MEDS: meTOprolol TARTRATE 25 MG (LOPRESSOR) TABLET PO SCH ×3 (07:36→19:47)
[2020-03-06] MEDS: toPIRamate 25 MG (TOPAMAX) TAB PO SCH (07:36)
[2020-03-06] MEDS: PANTOPRAZOLE 40 MG (PROTONIX) TAB PO SCH (07:36)
[2020-03-06] MEDS: VENlafaxine 75 MG (EFFEXOR) TAB PO SCH ×4 (07:36→19:48)
[2020-03-06] MEDS: MICONAZOLE 2% POWDER (DESENEX AF) 90 GM TOP SCH ×2 (07:38→19:55)
[2020-03-06] MEDS: BACLOFEN 10 MG (LIORESAL) TAB PO PRN ×2 (08:37→19:48)
[2020-03-06] MEDS: ALPRAZolam 0.25 MG (XANAX) TAB PO PRN ×2 (09:16→19:47)
[2020-03-06] MEDS: polyethylene glycoL POWDER 17 GM (MIRALAX) PACK PO SCH ×2 (09:18→21:00)
[2020-03-06] MEDS: SENNA W/DOCUSATE (SENOKOT S) TABLET PO SCH ×2 (09:19→21:00)
[2020-03-06] MEDS: SENNOSIDES 8.6 MG (SENOKOT) TAB PO SCH ×2 (09:20→21:00)
[2020-03-06] MEDS: DOCUSATE SODIUM 100 MG (COLACE) CAP PO SCH ×2 (09:20→21:00)
--- NOTE | 2020-03-06 09:30 | Physical Therapy Daily Note ---
PT Daily Note-Current Subjective Pt in bed upon arrival. RN and PHLEBOTOMY LAB ASSISTANT just finished pericare. Pt agrees to PT/OT co-treatment. Pt c/o moderate pain (burning) in back at beginning of tx. Pain Numeric Pain Scale: 10-Worst Possible Pain Location: Medial Location Body Site: Back Pain Description: Burning Comment: Pt pain increased to 10/10 when transfers, via sugar lift, began. Mental Status Patient Orientation: Person, Place, Time, Situation Attachments: Oxygen (Pt wears at night), White Catheter, IV Transfers SCALE: Activities may be completed with or without assistive devices. 4-Rmncomifmz-elgcogc completes the activity by him/herself with no assistance from a helper. 5-Set-up or Clean-up Assistance-helper sets up or cleans up; patient completes activity. Beryl assists only prior to or following the activity. 4-Supervision or Touching Assistance-helper provides verbal cues and/or touching/steadying and/or contact guard assistance as patient completes activity. Assistance may be provided throughout the activity or intermittently. 3-Partial/Moderate Assistance-helper does LESS THAN HALF the effort. Beryl lifts, holds or supports trunk or limbs, but provides less than half the effort. 2-Substantial/Maximal Assistance-helper does MORE THAN HALF the effort. Beryl lifts or holds trunk or limbs and provides more than half the effort. 4-Fobxcvnjo-cvghre does ALL the effort. Patient does none of the effort to complete the activity. Or, the assistance of 2 or more helpers is required for the patient to complete the activity. If activity was not attempted, code reason: 7-Patient Refused. 9-Not Applicable-not attempted and the patient did not perform the activity before the current illness, exacerbation or injury. 10-Not Attempted due to Environmental Limitations-(lack of equipment, weather restraints, etc.). 88-Not Attempted due to Medical Conditions or Safety Concerns. Roll Left & Right (QC): 2 Chair/Udz-fo-Wbuoh Xfer(QC): 1 (Sugar Lift used) Wheelchair Training Does the Pt Use a Wheelchair?: Yes Type of Wheelchair: Manual Pt transfers via sugar lift to w/c to attempt w/c mobility. Pt transfers directly from w/c to recliner, via sugar lift, d/t increase in pain. W/C mobility not attempted d/t increase in pain. Exercises Supine Ex: Ankle pumps (PROM), Heel Slides (PROM), Short Arc Quads (PROM), Hip abd/add (PROM) Supine Reps: 15 Treatments OT/PT cotreat due to increased medical complexity, decreased functional ability, and paraplegia requiring the skill of 2 disciplines which a veterans rehabilitation counselor could not perform. OT focused on ADLs, UE placement, cues for safety and sequencing while PT focused on LE placement and overall gross movements. Pt laying in bed at start of session, completed partial sponge bath of washing under her breasts and underarms with set up. Pt donned/doffed hospital gown with min A, no QC score given due to using hospital gown. Pt at bed level as PT focused on PROM LEs, OT cued pt to complete diaphragmatic breathing during task. Pt then rolled side to side for sugar sling placement, pt then transferred to w/c via sugar. Pt reports increased pain during transfer and after being supported by w/c. Pt agreed to transferring to recliner in attempt to get more comfortable and decrease pain. Pt transferred to recliner and positioned with pillows, Nursing notified of pt's pain at this time. After a short time, pt reports she feels like her pain is easing but it is still there. Heating pad placed behind pt's back. OT/PT cotreat terminated at this time due to increased pain. OT will attempt tx again later. PT will attempt tx again later. Post OT/PT cotreat, pt seated in recliner, call light in reach and all needs met, nursing aware of pt's position. Assessment Pt c/o moderate pain (burning) in back at beginning of tx. Pt unable to perform AAROM, using leg acoustical logging engineer, d/t increasing pain when reaching for leg acoustical logging engineer handle. Pt pain increased to 10/10 burning in back during transfer. Pt yelling out and crying. RN notified and pt was given a muscle relaxer and a xanax. PT Short Term Goals Short Term Goals Time Frame: Mar 03, 2020 Roll Left & Right: 2 PT Carpenter Inspector Goals Long-Term Goals PT Carpenter Inspector Goals Time Frame: Mar 17, 2020 Roll Left & Right (QC): 2 Sit to Lying (QC): 88 Lying-Sitting on Side/Bed(QC): 88 Sit to Stand (QC): 88 Chair/Tjk-jd-Ilior Xfer(QC): 88 Toilet Transfer (QC): 88 Car Transfer (QC): 88 Does the Patient Walk: No and Walking Goal NOT indicated Walk 10 feet (QC): 88 Walk 50ft with 2 Turns (QC): 88 Walk 150 ft (QC): 88 Walking 10ft on Uneven Surface: 88 1 Step (curb) (QC): 88 4 Steps (QC): 88 12 Steps (QC): 88 Picking up an Object (QC): 88 Wheel 50 feet with 2 turns (QC: 4 Type: Motorized Wheel 150 feet: 4 Type: Motorized PT Plan Problem List Problem List: Activity Tolerance, Functional Strength, Safety, Transfer, Bed Mobility, ROM Treatment/Plan Treatment Plan: Continue Plan of Care Treatment Plan: Bed Mobility, Education, Functional Activity Regulo, Functional Strength, Group Therapy, Safety, Therapeutic Exercise, Transfers Treatment Duration: Mar 17, 2020 Frequency: At least 5 of 7 days/Wk (IRF) Estimated Hrs Per Day: 1.5 hours per day Patient and/or Family Agrees t: Yes Safety Risks/Education Patient Education: Correct Positioning Teaching Recipient: Patient Teaching Methods: Discussion Response to Teaching: Verbalize Understanding Time/GCodes Time In: 814 Time Out: 919 Total Billed Treatment Time: 65 Total Billed Treatment PT/OT co-treatment: 1, FA x4 (65m) KAVITHA LYLES STRING STUDIES DIRECTOR Mar 06, 2020 09:29
--- NOTE | 2020-03-06 09:31 | Occupational Ther Daily Note ---
OT Current Status-Daily Note Subjective Pt laying in bed at start of session, agreeable to OT/PT cotreat. Pt did not verbalize pain rating at start of session, rating back pain as 10/10 during laura transfers, describing her pain like someone was ripping her skin off of her body. Nurse notified, and OT/PT attempted to position pt to comfort. Pain Numeric Pain Scale: 10-Worst Possible Pain Location: Medial Location Body Site: Back Pain Description: Burning Mental Status/Objective Patient Orientation: Normal For Age Attachments: White Catheter ADL-Treatment Therapy Code Descriptions/Definitions Functional [place] Measure: 0=Not Assessed/NA 4=Minimal Assistance 1=Total Assistance 5=Supervision or Setup 2=Maximal Assistance 6=Modified [place] 3=Moderate Assistance 7=Complete IndependenceSCALE: Activities may be completed with or without assistive devices. 1-Zntcpbrrgl-kplypwu completes the activity by him/herself with no assistance from a helper. 5-Set-up or Clean-up Assistance-helper sets up or cleans up; patient completes activity. [place] assists only prior to or following the activity. 4-Supervision or Touching Assistance-helper provides verbal cues and/or touching/steadying and/or contact guard assistance as patient completes activity. Assistance may be provided throughout the activity or intermittently. 3-Partial/Moderate Assistance-helper does LESS THAN HALF the effort. [place]man lifts, holds or supports trunk or limbs, but provides less than half the effort. 2-Substantial/Maximal Assistance-helper does MORE THAN HALF the effort. [place]man lifts or holds trunk or limbs and provides more than half the effort. 0-Gwuzboppo-xdwfgh does ALL the effort. Patient does none of the effort to complete the activity. Or, the assistance of 2 or more helpers is required for the patient to complete the activity. If activity was not attempted, code reason: 7-Patient Refused. 9-Not Applicable-not attempted and the patient did not perform the activity before the current illness, exacerbation or injury. 10-Not Attempted due to Environmental Limitations-(lack of equipment, weather restraints, etc.). 88-Not Attempted due to Medical Conditions or Safety Concerns. Other Treatment OT/PT cotreat due to increased medical complexity, decreased functional ability, and paraplegia requiring the skill of 2 disciplines which a rehabilitation program coordinator could not perform. OT focused on ADLs, UE placement, cues for safety and sequencing while PT focused on LE placement and overall gross movements. Pt laying in bed at start of session, completed partial sponge bath of washing under her breasts and underarms with set up. Pt donned/doffed hospital gown with min A, no QC score given due to using hospital gown. Pt at bed level as PT focused on PROM LEs, OT cued pt to complete diaphragmatic breathing during task. Pt then rolled side to side for laura sling placement, pt then transferred to w/c via laura. Pt reports increased pain during transfer and after being supported by w/c. Pt agreed to transferring to recliner in attempt to get more comfortable and decrease pain. Pt transferred to recliner and positioned with pillows, Nursing notified of pt's pain at this time. After a short time, pt reports she feels like her pain is easing but it is still there. Heating pad placed behind pt's back. OT/PT cotreat terminated at this time due to increased pain. OT will attempt tx again later. Post OT/PT cotreat, pt seated in recliner, call light in reach and all needs met , nursing aware of pt's position. Education OT Patient Education: Correct positioning, Energy conservation, Modified ADL techniques, Progress toward Goal/Update tx plan, Purpose of tx/functional activities, Safety issues, Transfer techniques Teaching Recipient: Patient Teaching Methods: Discussion Response to Teaching: Verbalize Understanding OT Short Term Goals Short Term Goals Time Frame: Mar 03, 2020 Toileting hygiene: 2 Shower/bathe self: 3 OT Detention Goals 3D Designer Goals Time Frame: Mar 17, 2020 Eating (QC): 6 Oral Hygiene (QC): 6 Toileting Hygiene (QC): 4 Shower/Bathe Self (QC): 4 Upper Body Dressing (QC): 5 Lower Body Dressing (QC): 3 On/Off Footwear (QC): 6 Additional Goals: 1-Demonstrate ADL Tasks, 2-Verbalize Understanding, 3- ImproveStrength/Regulo 1=Demonstrate adherence to instructed precautions during ADL tasks. 2=Patient will verbalize/demonstrate understanding of assistive devices/modifications for ADL. 3=Patient will improve strength/tolerance for activity to enable patient to perform ADL's. OT Education/Plan Problem List/Assessment Assessment: Decreased Activ Tolerance, Decreased UE Strength, Dependent Transfers, Impaired Bed Mobility, Impaired Funct Balance, Impaired I ADL's, Impaired Self-Care Skills Discharge Recommendations Plan/Recommendations: Continue POC Treatment Plan/Plan of Care Patient would benefit from OT for education, treatment and training to promote independence in ADL's, mobility, safety and/or upper extremity function for ADL's. Plan of Care: ADL Retraining, Caregiver Training, Concurrent Therapy, Functional Mobility, Group Exercise/Act as Ind, UE Funct Exercise/Act, W/C Suzie gement Training Treatment Duration: Mar 10, 2020 Frequency: At least 5 of 7 days/Wk (IRF) Estimated Hrs Per Day: 1.5 hours per day Agreement: Yes Rehab Potential: Poor Time/GCodes Start Time: 08:15 Stop Time: 09:20 Total Time Billed (hr/min): 65 Billed Treatment Time OT/PT cotreat [id number] 1, FA 4 (65') WOLF EPPERSON OT Mar 06, 2020 09:31
--- NOTE | 2020-03-06 09:54 | NUR ---
CM/SS CONCURRENT DOCUMENTATION Reviewed EMR and patient's physical status and performance with therapy this date. Patient noting 10/10 pain in her back. Continuing with romero, monitoring for this to be nursing home as it pertains to discharge planning and care of patient by family in her home.
--- NOTE | 2020-03-06 10:34 | PM&R Progress Note ---
Subjective HPI/CC On Admission Date Seen by Provider: Mar 06, 2020 Time Seen by Provider: 10:30 Subjective/Events-last exam Increased pain today Feels burning in her back similar to when she presented which could be a good sign that nerves are "coming back." Lidocaine patch along with K-pad provided BM+ regular now Needs to get OOB and she didn't yesterday likely causing her to stiffen up Tried to maintain optimistic attitude for her Sugar lift being used to move OOB No falls noted Checked meds and labs Conferred wtih RN Reviewed therapy notes Review of Systems General: Fatigue Musculoskeletal: back pain Objective Exam Vital Signs Vital Signs Date Time Temp Pulse Resp B/P (MAP) Pulse Ox O2 Delivery O2 Flow Rate FiO2 03/06/20 09:00 Room Air 03/06/20 06:34 36.9 81 18 101/69 (80) 97 2.00 03/04/20 18:29 21 Capillary Refill : Less Than 3 Seconds General Appearance: No Apparent Distress, WD/WN, Chronically ill, Obese HEENT: PERRL/EOMI, Normal ENT Inspection, Pharynx Normal Neck: Full Range of Motion, Normal Inspection, Non Tender, Supple, Carotid Bruit Respiratory: Chest Non Tender, Lungs Clear, Normal Breath Sounds, No Accessory Muscle Use, No Respiratory Distress Cardiovascular: Regular Rate, Rhythm, No Gallop, No JVD, No Murmur, Normal Peripheral Pulses Gastrointestinal: Normal Bowel Sounds, No Organomegaly, No Pulsatile Mass, Non Tender, Soft Back: Normal Inspection, No CVA Tenderness, Decreased Range of Motion Extremity: Normal Capillary Refill, Normal Inspection, Pedal Edema Neurologic/Psychiatric: Alert, Oriented x3, rv mechanic II-XII Norm as Tested, Depresse d Affect, Motor Weakness Skin: Normal Color, Warm/Dry Lymphatic: No Adenopathy Results/Procedures Lab Laboratory Tests 03/06/20 04:30 Patient resulted labs reviewed. FIM Transfers Therapy Code Descriptions/Definitions Functional [place] Measure: 0=Not Assessed/NA 4=Minimal Assistance 1=Total Assistance 5=Supervision or Setup 2=Maximal Assistance 6=Modified [place] 3=Moderate Assistance 7=Complete IndependenceSCALE: Activities may be completed with or without assistive devices. 2-Cltriunaka-hilbwno completes the activity by him/herself with no assistance from a helper. 5-Set-up or Clean-up Assistance-helper sets up or cleans up; patient completes activity. [place] assists only prior to or following the activity. 4-Supervision or Touching Assistance-helper provides verbal cues and/or touching/steadying and/or contact guard assistance as patient completes activity. Assistance may be provided throughout the activity or intermittently. 3-Partial/Moderate Assistance-helper does LESS THAN HALF the effort. [place] lifts, holds or supports trunk or limbs, but provides less than half the effort. 2-Substantial/Maximal Assistance-helper does MORE THAN HALF the effort. [place] lifts or holds trunk or limbs and provides more than half the effort. 8-Ulvgrmdaf-tozrqu does ALL the effort. Patient does none of the effort to complete the activity. Or, the assistance of 2 or more helpers is required for the patient to complete the activity. If activity was not attempted, code reason: 7-Patient Refused. 9-Not Applicable-not attempted and the patient did not perform the activity before the current illness, exacerbation or injury. 10-Not Attempted due to Environmental Limitations-(lack of equipment, weather restraints, etc.). 88-Not Attempted due to Medical Conditions or Safety Concerns. Roll Left to Right (QC): 2 Sit to Lying (QC): 1 Sit to Stand (QC): 1 Chair/Zuq-sp-Nphio Xfer(QC): 1 (Sugar Lift used) Car Transfer (QC): 88 Gait Training Does the Patient Walk?: No and Walking Goal NOT indicated Walk 10 feet (QC): 88 Walk 50 ft with 2 Turns(QC): 88 Walk 150 ft (QC): 88 Walking 10ft/uneven surface-QC: 88 Wheelchair Training Does the Pt Use a Wheelchair?: Yes Wheel 50 ft with 2 turns (QC): 88 Wheel 150 ft (QC): 88 Type of Wheelchair: Manual Stair Training 1 Step (curb) (QC): 88 4 Steps (QC): 88 12 Steps (QC): 88 Balance Picking up an Object (QC): 88 ADL-Treatment Eating (QC): 6 (Per pt report) Oral Hygiene (QC): 5 (set up at tray table) Bathing Location: L Arm, R Arm, Chest, Abdomen Shower/Bathe Self (QC): 2 (Pt able to wash UEs, abdomen and chest. Required total assist with lower body, and assistance washing under her stomach.) Upper Body Dressing (QC): 3 (Pt able to thread night gown over her head and arms. She required assistance managing down her back and down her sides as she performed sideleans in recliner.) Lower Body Dressing (QC): 1 (TD) On/Off Footwear (QC): 1 (Pt dependent for task.) Toileting Hygiene (QC): 1 (Pt rolled side to side in bed in order for OT to assist with washing buttocks, and periarea) Assessment/Plan Assessment and Plan Assess & Plan/Chief Complaint Assessment: (1) Paraplegia at T9 level ICD Codes: G82.20 - Paraplegia, unspecified (2) Acute osteomyelitis of spine Status: Acute ICD Codes: M46.20 - Osteomyelitis of vertebra, site unspecified (3) White catheter in place ICD Codes: Z96.0 - Presence of urogenital implants (4) Neurogenic bladder ICD Codes: N31.9 - Neuromuscular dysfunction of bladder, unspecified (5) Chronic mental illness ICD Codes: F99 - Mental disorder, not otherwise specified (6) Depression ICD Codes: F32.9 - Major depressive disorder, single episode, unspecified (7) H/O gastric bypass ICD Codes: Z98.84 - Bariatric surgery status (8) Fecal incontinence ICD Codes: R15.9 - Full incontinence of feces (9) Acute respiratory failure with hypoxia Status: Acute ICD Codes: J96.01 - Acute respiratory failure with hypoxia (10) T2DM (type 2 diabetes mellitus) Status: Chronic ICD Codes: E11.9 - Type 2 diabetes mellitus without complications (11) Paresthesia of both legs Status: Acute ICD Codes: R20.2 - Paresthesia of skin (12) RLS (restless legs syndrome) Status: Chronic ICD Codes: G25.81 - Restless legs syndrome (13) Elevated liver function tests Status: Acute ICD Codes: R94.5 - Abnormal results of liver function studies (14) HLD (hyperlipidemia) Status: Chronic ICD Codes: E78.5 - Hyperlipidemia, unspecified (15) HTN (hypertension) Status: Chronic ICD Codes: I10 - Essential (primary) hypertension (16) Morbid obesity Status: Chronic ICD Codes: E66.01 - Morbid (severe) obesity due to excess calories (17) Shortness of breath Status: Acute ICD Codes: R06.02 - Shortness of breath (18) Hypoxia Status: Acute ICD Codes: R09.02 - Hypoxemia GERD Plan: IRF Wheelchair mobility with bariatric wheelchair if possible Increase ADL's in order to return home with caregivers nephew and daughter Psych evaluation appreciated but could need another visit BM regimen to maintain to prevent narcotic bowel is working well Neurogenic bladder will likely need SP cath in the future but keep in-dwelling for now Pain control PPI with TUMS Levaquin for osteomyelitis of spine IV form maintained until end of month Steroids completed Changed Lasix to PO form Long acting narcotic maintained along with break through pain med Accucheck only in am daily Lidocaine patch with K-pad (1) Paraplegia at T9 level (2) Acute osteomyelitis of spine Status: Acute (3) White catheter in place (4) Neurogenic bladder (5) Chronic mental illness (6) Depression (7) H/O gastric bypass (8) Fecal incontinence (9) Acute respiratory failure with hypoxia Status: Acute (10) T2DM (type 2 diabetes mellitus) Status: Chronic (11) Paresthesia of both legs Status: Acute (12) RLS (restless legs syndrome) Status: Chronic (13) Elevated liver function tests Status: Acute (14) HLD (hyperlipidemia) Status: Chronic (15) HTN (hypertension) Status: Chronic (16) Morbid obesity Status: Chronic (17) Shortness of breath Status: Acute (18) Hypoxia Status: Acute KATELYN JENSEN DO Mar 06, 2020 10:34
[2020-03-06] MEDS: LIDOCAINE 4% (SALONPAS) PATCH TOP SCH (11:48)
--- NOTE | 2020-03-06 13:16 | Physical Therapy Daily Note ---
PT Daily Note-Current Subjective Pt in recliner upon arrival. States "I feel a lot better than this morning." Pt willing to participate in therapy tx. Pain Numeric Pain Scale: 3 Location: Medial Location Body Site: Back Pain Description: Ache, Dull Comment: Pt states pain level has improved greatly since this morning. Mental Status Patient Orientation: Person, Place, Time, Situation Attachments: IV Transfers SCALE: Activities may be completed with or without assistive devices. 4-Dpoggvqpwn-bgsqdqh completes the activity by him/herself with no assistance from a helper. 5-Set-up or Clean-up Assistance-helper sets up or cleans up; patient completes activity. [place] assists only prior to or following the activity. 4-Supervision or Touching Assistance-helper provides verbal cues and/or touching/steadying and/or contact guard assistance as patient completes activity. Assistance may be provided throughout the activity or intermittently. 3-Partial/Moderate Assistance-helper does LESS THAN HALF the effort. [place] lifts, holds or supports trunk or limbs, but provides less than half the effort. 2-Substantial/Maximal Assistance-helper does MORE THAN HALF the effort. [place] lifts or holds trunk or limbs and provides more than half the effort. 2-Gycqdkjif-nzquul does ALL the effort. Patient does none of the effort to complete the activity. Or, the assistance of 2 or more helpers is required for the patient to complete the activity. If activity was not attempted, code reason: 7-Patient Refused. 9-Not Applicable-not attempted and the patient did not perform the activity before the current illness, exacerbation or injury. 10-Not Attempted due to Environmental Limitations-(lack of equipment, weather restraints, etc.). 88-Not Attempted due to Medical Conditions or Safety Concerns. Exercises Supine Ex: Ankle pumps, Short Arc Quads, Hip abd/add (PROM ) Supine Reps: 15 (15 reps x 3) Treatments Pt completed LE ROM using leg reconciliation specialist. Pt remains in recliner, call light, bedside table and all needs met at end of tx. Assessment Current Status: Fair Progress Pt pain level improved greatly since this morning. Pt states "I feel a lot better than this morning." Pt states pain level is at a 3 and "I know it's there but it's more dull/achy. It's not burning like this morning." Pt actively participated in therapy tx. PT Short Term Goals Short Term Goals Time Frame: Mar 03, 2020 Roll Left & Right: 2 PT Care Home Goals Fishing Game Warden Goals PT Fishing Game Warden Goals Time Frame: Mar 17, 2020 Roll Left & Right (QC): 2 Sit to Lying (QC): 88 Lying-Sitting on Side/Bed(QC): 88 Sit to Stand (QC): 88 Chair/Cik-ot-Qzkep Xfer(QC): 88 Toilet Transfer (QC): 88 Car Transfer (QC): 88 Does the Patient Walk: No and Walking Goal NOT indicated Walk 10 feet (QC): 88 Walk 50ft with 2 Turns (QC): 88 Walk 150 ft (QC): 88 Walking 10ft on Uneven Surface: 88 1 Step (curb) (QC): 88 4 Steps (QC): 88 12 Steps (QC): 88 Picking up an Object (QC): 88 Wheel 50 feet with 2 turns (QC: 4 Type: Motorized Wheel 150 feet: 4 Type: Motorized PT Plan Problem List Problem List: Activity Tolerance, Functional Strength, Safety, Bed Mobility, ROM Treatment/Plan Treatment Plan: Continue Plan of Care Treatment Plan: Bed Mobility, Education, Functional Activity Regulo, Functional Strength, Group Therapy, Safety, Therapeutic Exercise, Transfers Treatment Duration: Mar 17, 2020 Frequency: At least 5 of 7 days/Wk (IRF) Estimated Hrs Per Day: 1.5 hours per day Patient and/or Family Agrees t: Yes Safety Risks/Education Patient Education: Correct Positioning Teaching Recipient: Patient Teaching Methods: Discussion Response to Teaching: Verbalize Understanding Time/GCodes Time In: 1245 Time Out: 1310 Total Billed Treatment Time: 25 Total Billed Treatment 1, Ex x2 (25m) KAVITHA LYLES MANAGER CONFIGURATION Mar 06, 2020 13:16
--- NOTE | 2020-03-06 13:34 | NUR ---
"RD ASSESSMENT PMHx: HTN; DM; HLD; obesity; GERD; paraplegia PT INTERACTION: Pt was awake and pleasant during nutrition follow-up. Pt states she has been eating pretty well since last assessment. Note avg PO intake 73% x4d, per chart review. Pt states no issues with n/v/c since last assessment, but has had some issues with diarrhea. Note last BM was 4/5 and pt currently on bowel regimen of Colace BID; Senna BID; and Miralax BID, per chart review. ABNORMAL NUTRITION-RELATED LAB VALUES LOW: K 3.2; Cl 97; alb 2.7 HIGH: alkphos 150 Est. kcal needs: 6393-8567 kcal | 25-30 kcal/kg IBW, based on IBW of 61.4 kg (135#) Est. Pro needs: 49-61 g Pro | 0.8-.10 g Pro/kg IBW, based on IBW of 61.4 kg (135#) PES STATEMENT: Inadequate oral intake (NI-2.1) related to diarrhea as evidenced by pt interview | avg PO intake 73% x4d INTERVENTION: Continue with current diet order of CHO 75g/m 0snack diet. Pt may benefit from nutrition supplementation if PO intake declines. Encouraged pt to eat when able. Will continue to follow and reassess as pt needs, intake, and status change. MONITOR/EVALUATE: PO Intake; Plan of Care; Hydration Status; Weight Status; Lab Values Miladys Kaufman, MS, RD, LD"
--- NOTE | 2020-03-06 14:01 | Occupational Ther Daily Note ---
OT Current Status-Daily Note Subjective Pt seen in recliner chair post-PT session. Pt agreeable to OT tx session, denies pain, stating "It has gotten better since this morning." Pt expresses immense pain this a.m. in back, stating a "grinding" pain. Mental Status/Objective Patient Orientation: Person, Place, Time, Situation, Normal For Age ADL-Treatment Therapy Code Descriptions/Definitions Functional [place] Measure: 0=Not Assessed/NA 4=Minimal Assistance 1=Total Assistance 5=Supervision or Setup 2=Maximal Assistance 6=Modified [place] 3=Moderate Assistance 7=Complete IndependenceSCALE: Activities may be completed with or without assistive devices. 7-Ffohbdgwpe-xewoiia completes the activity by him/herself with no assistance from a helper. 5-Set-up or Clean-up Assistance-helper sets up or cleans up; patient completes activity. [place] assists only prior to or following the activity. 4-Supervision or Touching Assistance-helper provides verbal cues and/or touching/steadying and/or contact guard assistance as patient completes activity. Assistance may be provided throughout the activity or intermittently. 3-Partial/Moderate Assistance-helper does LESS THAN HALF the effort. [place] lifts, holds or supports trunk or limbs, but provides less than half the effort. 2-Substantial/Maximal Assistance-helper does MORE THAN HALF the effort. [place] lifts or holds trunk or limbs and provides more than half the effort. 8-Byxqduxdj-zoqqyj does ALL the effort. Patient does none of the effort to complete the activity. Or, the assistance of 2 or more helpers is required for the patient to complete the activity. If activity was not attempted, code reason: 7-Patient Refused. 9-Not Applicable-not attempted and the patient did not perform the activity before the current illness, exacerbation or injury. 10-Not Attempted due to Environmental Limitations-(lack of equipment, weather restraints, etc.). 88-Not Attempted due to Medical Conditions or Safety Concerns. Eating (QC): 6 Oral Hygiene (QC): 6 (completes with items set in front of pt in recliner chair.) Other Treatment Pt completes oral care and hair grooming with IND. Pt then completes 10 min exercises with arm arc: completing midline crosses, reaching, bimanual manipulation and transferring, and abdominal work while reaching. Pt completes 5 sets bilaterally of 10 rings. Pt utilizes 1# wrist weights during last 2 reps. Pt's L RTC mm "catch" per pt. Pt experiences 3 episodes of inability to forward flex L shoulder, requiring pt to relax arm and try later on. Pt able to forward flex after ~10-30 sec of relaxation. Pt then requests back to bed for nap. Use of laura x2 for transfer. Pt requires max A to roll bilaterally, TD for pillow management under BLE. Pt denies needs, call light in reach, pt left in bed post- session. Education OT Patient Education: Correct positioning, Exercise program, Home exercise program Teaching Recipient: Patient Teaching Methods: Demonstration, Discussion Response to Teaching: Verbalize Understanding, Return Demonstration OT Short Term Goals Short Term Goals Time Frame: Mar 03, 2020 Toileting hygiene: 2 Shower/bathe self: 3 OT Snf Goals Datapower Consultant Goals Time Frame: Mar 17, 2020 Eating (QC): 6 Oral Hygiene (QC): 6 Toileting Hygiene (QC): 4 Shower/Bathe Self (QC): 4 Upper Body Dressing (QC): 5 Lower Body Dressing (QC): 3 On/Off Footwear (QC): 6 Additional Goals: 1-Demonstrate ADL Tasks, 2-Verbalize Understanding, 3- ImproveStrength/Regulo 1=Demonstrate adherence to instructed precautions during ADL tasks. 2=Patient will verbalize/demonstrate understanding of assistive devices/modifications for ADL. 3=Patient will improve strength/tolerance for activity to enable patient to perform ADL's. OT Education/Plan Problem List/Assessment Assessment: Decreased Activ Tolerance, Decreased UE Strength, Dependent Transfers, Impaired Bed Mobility, Impaired I ADL's, Impaired Self-Care Skills Discharge Recommendations Plan/Recommendations: Continue POC Therapy Discharge Recommendati: 24 Hour Supervision Treatment Plan/Plan of Care Treatment,Training & Education: Yes Patient would benefit from OT for education, treatment and training to promote independence in ADL's, mobility, safety and/or upper extremity function for ADL's. Plan of Care: ADL Retraining, Caregiver Training, Concurrent Therapy, Functional Mobility, Group Exercise/Act as Ind, UE Funct Exercise/Act, W/C Management Training Treatment Duration: Mar 10, 2020 Frequency: At least 5 of 7 days/Wk (IRF) Estimated Hrs Per Day: 1.5 hours per day Agreement: Yes Rehab Potential: Poor Time/GCodes Start Time: 13:15 Stop Time: 13:45 Total Time Billed (hr/min): 30 Billed Treatment Time 1, ADL, EX (30) CIELO PEPPER OTR Mar 06, 2020 14:01
[2020-03-06 16:00] VITALS: BP 108/77
[2020-03-06] MEDS: LEVOFLOXACIN 750 MG/150 ML IV 150 ML IV SCH (16:19)
[2020-03-06] MEDS: rOPINIRole 1 MG (REQUIP) TABLET PO SCH (19:48)
[2020-03-06] MEDS: MELATONIN 3 MG TABLET PO PRN (19:48)
[2020-03-06] MEDS: LIDOCAINE PATCH REMOVAL TP SCH (21:57)
[2020-03-07] MEDS: KCL 10 MEQ TAB (MICRO K) PO SCH ×2 (05:21→17:19)
[2020-03-07] MEDS: oxyCODONE ER 10 MG (OxyCONTIN CR) TAB PO SCH ×2 (05:21→17:20)
[2020-03-07] MEDS: CATHETER FLUSH 10 ML SYR IV SCH ×3 (05:22→20:55)
[2020-03-07 06:00] VITALS: BP 89/57
[2020-03-07] MEDS: BACLOFEN 10 MG (LIORESAL) TAB PO PRN (06:45)
[2020-03-07 07:36] VITALS: BP 93/89
[2020-03-07] MEDS: FUROSEMIDE 40 MG (LASIX) TAB PO SCH (08:30)
[2020-03-07] MEDS: GABAPENTIN 300 MG (NEURONTIN) CAP PO SCH ×3 (08:30→20:56)
[2020-03-07] MEDS: ZONISAMIDE 100 MG CAP (ZONEGRAN) NON-FORMULARY PO SCH ×2 (08:30→20:55)
[2020-03-07] MEDS: VENlafaxine 75 MG (EFFEXOR) TAB PO SCH ×4 (08:31→20:55)
[2020-03-07] MEDS: toPIRamate 25 MG (TOPAMAX) TAB PO SCH (08:31)
[2020-03-07] MEDS: ARTIFICAL TEARS 0.4 ML UNIT DOSE (REFRESH PLUS) OU SCH ×3 (08:31→20:56)
[2020-03-07] MEDS: PANTOPRAZOLE 40 MG (PROTONIX) TAB PO SCH (08:31)
[2020-03-07] MEDS: LIDOCAINE 4% (SALONPAS) PATCH TOP SCH (08:32)
[2020-03-07] MEDS: SENNA W/DOCUSATE (SENOKOT S) TABLET PO SCH ×2 (08:34→20:55)
[2020-03-07] MEDS: polyethylene glycoL POWDER 17 GM (MIRALAX) PACK PO SCH ×2 (08:34→20:57)
[2020-03-07] MEDS: ENOXAPARIN 40 MG/0.4 ML (LOVENOX) SYR SC SCH ×2 (08:34→20:59)
[2020-03-07] MEDS: DOCUSATE SODIUM 100 MG (COLACE) CAP PO SCH ×2 (08:34→20:55)
[2020-03-07] MEDS: SENNOSIDES 8.6 MG (SENOKOT) TAB PO SCH ×2 (08:34→20:55)
[2020-03-07] MEDS: meTOprolol TARTRATE 25 MG (LOPRESSOR) TABLET PO SCH ×3 (08:35→21:03)
[2020-03-07] MEDS: LACTOBACILLUS ACIDOPHILUS (PROBIOTIC) CAPSULE PO SCH ×3 (08:37→17:19)
[2020-03-07] MEDS: MICONAZOLE 2% POWDER (DESENEX AF) 90 GM TOP SCH ×2 (08:37→20:56)
--- NOTE | 2020-03-07 10:00 | NUR ---
STATES BACK PAIN IS BETTER TODAY. HAS BEEN ABLE TO HAVE REGULAR BOWEL MOVEMENTS WITHOUT AID OF LAXATIVES. DENIES SOB WITH NOT USING OXYGEN LAST NIGHT, BUT INFORMED DR. JENSEN PREFERS FOR HER TO WEAR IT.
--- NOTE | 2020-03-07 11:24 | PM&R Progress Note ---
Subjective HPI/CC On Admission Date Seen by Provider: Mar 07, 2020 Time Seen by Provider: 10:30 Subjective/Events-last exam Decreased pain today but only a bit better Lidocaine patch along with K-pad provided BM+ regular now, no laxatives needed DM education completed Tried to maintain optimistic attitude for her Sugar lift being used to move OOB No falls noted 2L/min maintained at HS Checked meds and labs Conferred wtih RN Reviewed therapy notes Review of Systems General: Fatigue Pulmonary: Dyspnea Objective Exam Vital Signs Vital Signs Date Time Temp Pulse Resp B/P (MAP) Pulse Ox O2 Delivery O2 Flow Rate FiO2 03/07/20 18:10 Room Air 03/07/20 16:42 36.4 76 16 97/63 (74) 96 03/06/20 06:34 2.00 03/04/20 18:29 21 Capillary Refill : Less Than 3 SecondsLess Than 3 Seconds General Appearance: No Apparent Distress, WD/WN, Chronically ill, Obese HEENT: PERRL/EOMI, Normal ENT Inspection, Pharynx Normal Neck: Full Range of Motion, Normal Inspection, Non Tender, Supple, Carotid Bruit Respiratory: Chest Non Tender, Lungs Clear, Normal Breath Sounds, No Accessory Muscle Use, No Respiratory Distress Cardiovascular: Regular Rate, Rhythm, No Gallop, No JVD, No Murmur, Normal Peripheral Pulses Gastrointestinal: Normal Bowel Sounds, No Organomegaly, No Pulsatile Mass, Non Tender, Soft Back: Normal Inspection, No CVA Tenderness, Decreased Range of Motion Extremity: Normal Capillary Refill, Normal Inspection, Pedal Edema Neurologic/Psychiatric: Alert, Oriented x3, assembler deck and hull II-XII Norm as Tested, Depressed Affect, Motor Weakness Skin: Normal Color, Warm/Dry Lymphatic: No Adenopathy Results/Procedures Lab Patient resulted labs reviewed. FIM Transfers Therapy Code Descriptions/Definitions Functional [place] Measure: 0=Not Assessed/NA 4=Minimal Assistance 1=Total Assistance 5=Supervision or Setup 2=Maximal Assistance 6=Modified [place] 3=Moderate Assistance 7=Complete IndependenceSCALE: Activities may be completed with or without assistive devices. 3-Mhsmspotxf-sxaupxh completes the activity by him/herself with no assistance from a helper. 5-Set-up or Clean-up Assistance-helper sets up or cleans up; patient completes activity. [place] assists only prior to or following the activity. 4-Supervision or Touching Assistance-helper provides verbal cues and/or touching/steadying and/or contact guard assistance as patient completes activity. Assistance may be provided throughout the activity or intermittently. 3-Partial/Moderate Assistance-helper does LESS THAN HALF the effort. [place] lifts, holds or supports trunk or limbs, but provides less than half the effort. 2-Substantial/Maximal Assistance-helper does MORE THAN HALF the effort. [place] lifts or holds trunk or limbs and provides more than half the effort. 4-Swwgskqey-gqqpxo does ALL the effort. Patient does none of the effort to com plete the activity. Or, the assistance of 2 or more helpers is required for the patient to complete the activity. If activity was not attempted, code reason: 7-Patient Refused. 9-Not Applicable-not attempted and the patient did not perform the activity before the current illness, exacerbation or injury. 10-Not Attempted due to Environmental Limitations-(lack of equipment, weather restraints, etc.). 88-Not Attempted due to Medical Conditions or Safety Concerns. Roll Left to Right (QC): 2 Sit to Lying (QC): 1 Sit to Stand (QC): 1 Chair/Pqm-lj-Axhyz Xfer(QC): 1 (Sugar Lift used) Car Transfer (QC): 88 Gait Training Does the Patient Walk?: No and Walking Goal NOT indicated Walk 10 feet (QC): 88 Walk 50 ft with 2 Turns(QC): 88 Walk 150 ft (QC): 88 Walking 10ft/uneven surface-QC: 88 Wheelchair Training Does the Pt Use a Wheelchair?: Yes Wheel 50 ft with 2 turns (QC): 88 Wheel 150 ft (QC): 88 Type of Wheelchair: Manual Stair Training 1 Step (curb) (QC): 88 4 Steps (QC): 88 12 Steps (QC): 88 Balance Picking up an Object (QC): 88 ADL-Treatment Eating (QC): 6 Oral Hygiene (QC): 6 (completes with items set in front of pt in recliner chair.) Bathing Location: L Arm, R Arm, Chest, Abdomen Shower/Bathe Self (QC): 2 (Pt able to wash UEs, abdomen and chest. Required total assist with lower body, and assistance washing under her stomach.) Upper Body Dressing (QC): 3 (Pt able to thread night gown over her head and arms. She required assistance managing down her back and down her sides as she performed sideleans in recliner.) Lower Body Dressing (QC): 1 (TD) On/Off Footwear (QC): 1 (Pt dependent for task.) Toileting Hygiene (QC): 1 (Pt rolled side to side in bed in order for OT to assist with washing buttocks, and periarea) Assessment/Plan Assessment and Plan Assess & Plan/Chief Complaint Assessment: (1) Paraplegia at T9 level ICD Codes: G82.20 - Paraplegia, unspecified (2) Acute osteomyelitis of spine Status: Acute ICD Codes: M46.20 - Osteomyelitis of vertebra, site unspecified (3) White catheter in place ICD Codes: Z96.0 - Presence of urogenital implants (4) Neurogenic bladder ICD Codes: N31.9 - Neuromuscular dysfunction of bladder, unspecified (5) Chronic mental illness ICD Codes: F99 - Mental disorder, not otherwise specified (6) Depression ICD Codes: F32.9 - Major depressive disorder, single episode, unspecified (7) H/O gastric bypass ICD Codes: Z98.84 - Bariatric surgery status (8) Fecal incontinence ICD Codes: R15.9 - Full incontinence of feces (9) Acute respiratory failure with hypoxia Status: Acute ICD Codes: J96.01 - Acute respiratory failure with hypoxia (10) T2DM (type 2 diabetes mellitus) Status: Chronic ICD Codes: E11.9 - Type 2 diabetes mellitus without complications (11) Paresthesia of both legs Status: Acute ICD Codes: R20.2 - Paresthesia of skin (12) RLS (restless legs syndrome) Status: Chronic ICD Codes: G25.81 - Restless legs syndrome (13) Elevated liver function tests Status: Acute ICD Codes: R94.5 - Abnormal results of liver function studies (14) HLD (hyperlipidemia) Status: Chronic ICD Codes: E78.5 - Hyperlipidemia, unspecified (15) HTN (hypertension) Status: Chronic ICD Codes: I10 - Essential (primary) hypertension (16) Morbid obesity Status: Chronic ICD Codes: E66.01 - Morbid (severe) obesity due to excess calories (17) Shortness of breath Status: Acute ICD Codes: R06.02 - Shortness of breath (18) Hypoxia Status: Acute ICD Codes: R09.02 - Hypoxemia GERD Plan: IRF Wheelchair mobility with bariatric wheelchair if possible Increase ADL's in order to return home with caregivers nephew and daughter Psych evaluation appreciated but could need another visit BM regimen to maintain to prevent narcotic bowel is working well Neurogenic bladder will likely need SP cath in the future but keep in-dwelling for now Pain control PPI with TUMS Levaquin for osteomyelitis of spine IV form maintained until end of month Steroids completed Changed Lasix to PO form Long acting narcotic maintained along with break through pain med Accucheck only in am daily Lidocaine patch with K-pad (1) Paraplegia at T9 level (2) Acute osteomyelitis of spine Status: Acute (3) White catheter in place (4) Neurogenic bladder (5) Chronic mental illness (6) Depression (7) H/O gastric bypass (8) Fecal incontinence (9) Acute respiratory failure with hypoxia Status: Acute (10) T2DM (type 2 diabetes mellitus) Status: Chronic (11) Paresthesia of both legs Status: Acute (12) RLS (restless legs syndrome) Status: Chronic (13) Elevated liver function tests Status: Acute (14) HLD (hyperlipidemia) Status: Chronic (15) HTN (hypertension) Status: Chronic (16) Morbid obesity Status: Chronic (17) Shortness of breath Status: Acute (18) Hypoxia Status: Acute KATELNY JENSEN DO Mar 07, 2020 11:24
--- NOTE | 2020-03-07 11:34 | Occupational Ther Daily Note ---
OT Current Status-Daily Note Subjective Pt alert, lying in bed. Pt agrees to therapy. Pt c/o back pain, 09/09, reported to nrsg and doctor. Mental Status/Objective Patient Orientation: Person, Place, Time, Situation Attachments: IV (midline) ADL-Treatment OT/PT co-treat, skills of 2 clinicians required due to pt's medical complexity, decreased ADL status, dependency in transfers, decreased LE strength/ movement, and skilled techniques/instruction for safety. Pt uses laura lift for all transfers. Pt is able to assist with rolling side to side, max A. Pt unable to scoot self up in bed. Using rolling shower chair with cutout, pt was transported to large shower room for shower. Pt able to doff/don hospital gown with min A. Pt able to reach upper body for bathing though inefficient with cleansing under pannis. Using long handle sponge, pt able to reach to lower legs. Assist to cleanse jonny area/buttocks while supine in bed. Nrsg applied medicated powder to areas under breasts and pannis. Therapy Code Descriptions/Definitions Functional [place] Measure: 0=Not Assessed/NA 4=Minimal Assistance 1=Total Assistance 5=Supervision or Setup 2=Maximal Assistance 6=Modified [place] 3=Moderate Assistance 7=Complete IndependenceSCALE: Activities may be completed with or without assistive devices. 5-Xwmsmadfds-endprxi completes the activity by him/herself with no assistance from a helper. 5-Set-up or Clean-up Assistance-helper sets up or cleans up; patient completes activity. [place] assists only prior to or following the activity. 4-Supervision or Touching Assistance-helper provides verbal cues and/or touching/steadying and/or contact guard assistance as patient completes activity. Assistance may be provided throughout the activity or intermittently. 3-Partial/Moderate Assistance-helper does LESS THAN HALF the effort. [place] lifts, holds or supports trunk or limbs, but provides less than half the effort. 2-Substantial/Maximal Assistance-helper does MORE THAN HALF the effort. [place] lifts or holds trunk or limbs and provides more than half the effort. 3-Tnhtfpgiq-olsgca does ALL the effort. Patient does none of the effort to complete the activity. Or, the assistance of 2 or more helpers is required for the patient to complete the activity. If activity was not attempted, code reason: 7-Patient Refused. 9-Not Applicable-not attempted and the patient did not perform the activity before the current illness, exacerbation or injury. 10-Not Attempted due to Environmental Limitations-(lack of equipment, weather restraints, etc.). 88-Not Attempted due to Medical Conditions or Safety Concerns. Bathing Location: L Arm, R Arm, L Upper Leg, R Upper Leg, L Lower Leg (including foot), R Lower Leg (including foot), Chest, Abdomen Shower/Bathe Self (QC): 1 (Pt is able to reach most areas sitting on shower chair. The amount of assistance needed to cleanse jonny area/buttocks makes QC's dependent.) Other Treatment Pt working on w/c chair mobility. Pt requires physical assist to keep w/c straight and turn corners. Verbal cues to propel w/c very slowly around [facility] commons area. After session, pt lying in bed with call light/phone in reach. All needs met in room. OT Short Term Goals Short Term Goals Time Frame: Mar 03, 2020 Toileting hygiene: 2 Shower/bathe self: 3 OT Detention Goals Key Attendant Goals Time Frame: Mar 17, 2020 Eating (QC): 6 Oral Hygiene (QC): 6 Toileting Hygiene (QC): 4 Shower/Bathe Self (QC): 4 Upper Body Dressing (QC): 5 Lower Body Dressing (QC): 3 On/Off Footwear (QC): 6 Additional Goals: 1-Demonstrate ADL Tasks, 2-Verbalize Understanding, 3-ImproveStrength/Regulo 1=Demonstrate adherence to instructed precautions during ADL tasks. 2=Patient will verbalize/demonstrate understanding of assistive devices/modifications for ADL. 3=Patient will improve strength/tolerance for activity to enable patient to perf orm ADL's. OT Education/Plan Problem List/Assessment Assessment: Decreased Activ Tolerance, Decreased Safety Aware, Decreased UE Strength, Dependent Transfers, Impaired Bed Mobility, Impaired Coordination, Impaired Funct Balance, Impaired I ADL's, Impaired Self-Care Skills Discharge Recommendations Plan/Recommendations: Continue POC Treatment Plan/Plan of Care Patient would benefit from OT for education, treatment and training to promote independence in ADL's, mobility, safety and/or upper extremity function for ADL's. Plan of Care: ADL Retraining, Caregiver Training, Concurrent Therapy, Functional Mobility, Group Exercise/Act as Ind, UE Funct Exercise/Act, W/C Management Training Treatment Duration: Mar 10, 2020 Frequency: At least 5 of 7 days/Wk (IRF) Estimated Hrs Per Day: 1.5 hours per day Agreement: Yes Rehab Potential: Poor Time/GCodes Start Time: 10:00 Stop Time: 11:30 Total Time Billed (hr/min): 90 Billed Treatment Time 1 visit-ADL 4 (60 min) FA 2 (30 min) co-treat for 90 min ([id number]) BECKY SHANE Mar 07, 2020 11:34
--- NOTE | 2020-03-07 11:47 | Physical Therapy Daily Note ---
PT Daily Note-Current Subjective Patient in bed pre tx, agrees to PT, has 8-9/10 in back, states she has already had pain meds, will be co-treating with OT due to poor patient mobility, strength, endurance, balance , paraplegia, the need to coordinate UE and LE during activity. Appearance Patient in bed post tx with nurse call, phone, tray, all needs met. Mental Status Patient Orientation: Person, Place, Situation Attachments: White Catheter Transfers SCALE: Activities may be completed with or without assistive devices. 8-Bmehvfjxqd-jhzlmem completes the activity by him/herself with no assistance from a helper. 5-Set-up or Clean-up Assistance-helper sets up or cleans up; patient completes activity. [place] assists only prior to or following the activity. 4-Supervision or Touching Assistance-helper provides verbal cues and/or touching/steadying and/or contact guard assistance as patient completes activity. Assistance may be provided throughout the activity or intermittently. 3-Partial/Moderate Assistance-helper does LESS THAN HALF the effort. [place] lifts, holds or supports trunk or limbs, but provides less than half the effort. 2-Substantial/Maximal Assistance-helper does MORE THAN HALF the effort. [place] lifts or holds trunk or limbs and provides more than half the effort. 0-Unwnsonzg-afbsnd does ALL the effort. Patient does none of the effort to complete the activity. Or, the assistance of 2 or more helpers is required for the patient to complete the activity. If activity was not attempted, code reason: 7-Patient Refused. 9-Not Applicable-not attempted and the patient did not perform the activity bef ore the current illness, exacerbation or injury. 10-Not Attempted due to Environmental Limitations-(lack of equipment, weather r estraints, etc.). 88-Not Attempted due to Medical Conditions or Safety Concerns. Roll Left & Right (QC): 3 Chair/Gxp-ls-Gkdgb Xfer(QC): 1 Patient is able to help rolling a little (mod to max assist). Patient rolled several times to each side to get sling in and out from beneath her and for cleaning bottom. Patient transferred to shower chair with ceiling laura and taken to shower room, showered, taken back to room and transferred to bed, cleaned bottom and dressed, transferred to for training, and then back to bed. Wheelchair Training Does the Pt Use a Wheelchair?: Yes Wheel 50 ft with 2 turns (QC): 3 Wheel 150 ft (QC): 3 Type of Wheelchair: Manual Mod assist, very slow, needs assist turning and tends to veer to the left side and needs help going straight. Treatments bed mobility, transfers, bathing, dressing, WC training Assessment Current Status: Poor Progress WC mobility is not functional at this time PT Short Term Goals Short Term Goals Time Frame: Mar 03, 2020 Roll Left & Right: 2 PT Mobile Application Engineer Goals Mobile Application Engineer Goals PT Mobile Application Engineer Goals Time Frame: Mar 17, 2020 Roll Left & Right (QC): 2 Sit to Lying (QC): 88 Lying-Sitting on Side/Bed(QC): 88 Sit to Stand (QC): 88 Chair/Rfn-ti-Aqncw Xfer(QC): 88 Toilet Transfer (QC): 88 Car Transfer (QC): 88 Does the Patient Walk: No and Walking Goal NOT indicated Walk 10 feet (QC): 88 Walk 50ft with 2 Turns (QC): 88 Walk 150 ft (QC): 88 Walking 10ft on Uneven Surface: 88 1 Step (curb) (QC): 88 4 Steps (QC): 88 12 Steps (QC): 88 Picking up an Object (QC): 88 Wheel 50 feet with 2 turns (QC: 4 Type: Motorized Wheel 150 feet: 4 Type: Motorized PT Plan Problem List Problem List: Activity Tolerance, Functional Strength, Safety, Balance, Gait, Transfer, Bed Mobility, ROM Treatment/Plan Treatment Plan: Continue Plan of Care Treatment Plan: Bed Mobility, Education, Functional Activity Regulo, Functional Strength, Group Therapy, Safety, Therapeutic Exercise, Transfers Treatment Duration: Mar 17, 2020 Frequency: At least 5 of 7 days/Wk (IRF) Estimated Hrs Per Day: 1.5 hours per day Patient and/or Family Agrees t: Yes Safety Risks/Education Patient Education: Transfer Techniques, Correct Positioning, W/C Management, Safety Issues Teaching Recipient: Patient Teaching Methods: Demonstration, Discussion Response to Teaching: Reinforcement Needed Time/GCodes Time In: 1000 Time Out: 1130 Total Billed Treatment Time: 90 Total Billed Treatment [address] [facility] [place] 45' FA 45' Co-treated for the whole 90 min, PT performed bed mobility, rolling, transfers, assist with bathing and dressing, WC mobility, OT performed bathing, dressing, assist with transfers and WC mobility HIMANSHU MORGAN PT Mar 07, 2020 11:47
[2020-03-07] MEDS: LEVOFLOXACIN 750 MG/150 ML IV 150 ML IV SCH (15:41)
[2020-03-07 16:42] VITALS: BP 97/63
[2020-03-07] MEDS: rOPINIRole 1 MG (REQUIP) TABLET PO SCH (20:55)
[2020-03-07] MEDS: LIDOCAINE PATCH REMOVAL TP SCH (20:57)
[2020-03-08 06:00] VITALS: BP 117/74
[2020-03-08] MEDS: oxyCODONE ER 10 MG (OxyCONTIN CR) TAB PO SCH ×2 (06:23→17:13)
[2020-03-08] MEDS: KCL 10 MEQ TAB (MICRO K) PO SCH ×2 (06:23→17:13)
[2020-03-08] MEDS: BACLOFEN 10 MG (LIORESAL) TAB PO PRN (06:23)
[2020-03-08] MEDS: CATHETER FLUSH 10 ML SYR IV SCH ×3 (06:25→20:46)
[2020-03-08] MEDS: ARTIFICAL TEARS 0.4 ML UNIT DOSE (REFRESH PLUS) OU SCH ×3 (08:46→20:42)
[2020-03-08] MEDS: SENNA W/DOCUSATE (SENOKOT S) TABLET PO SCH ×2 (08:46→20:43)
[2020-03-08] MEDS: LACTOBACILLUS ACIDOPHILUS (PROBIOTIC) CAPSULE PO SCH ×3 (08:46→17:20)
[2020-03-08] MEDS: ZONISAMIDE 100 MG CAP (ZONEGRAN) NON-FORMULARY PO SCH ×2 (08:46→20:44)
[2020-03-08] MEDS: ENOXAPARIN 40 MG/0.4 ML (LOVENOX) SYR SC SCH ×2 (08:47→20:43)
[2020-03-08] MEDS: LIDOCAINE 4% (SALONPAS) PATCH TOP SCH (08:47)
[2020-03-08] MEDS: SENNOSIDES 8.6 MG (SENOKOT) TAB PO SCH ×2 (08:48→20:43)
[2020-03-08] MEDS: DOCUSATE SODIUM 100 MG (COLACE) CAP PO SCH ×2 (08:48→20:43)
[2020-03-08] MEDS: PANTOPRAZOLE 40 MG (PROTONIX) TAB PO SCH (08:48)
[2020-03-08] MEDS: GABAPENTIN 300 MG (NEURONTIN) CAP PO SCH ×3 (08:48→20:43)
[2020-03-08] MEDS: meTOprolol TARTRATE 25 MG (LOPRESSOR) TABLET PO SCH ×2 (08:48→20:46)
[2020-03-08] MEDS: FUROSEMIDE 40 MG (LASIX) TAB PO SCH (08:48)
[2020-03-08] MEDS: toPIRamate 25 MG (TOPAMAX) TAB PO SCH (08:48)
[2020-03-08] MEDS: VENlafaxine 75 MG (EFFEXOR) TAB PO SCH ×4 (08:48→20:43)
[2020-03-08] MEDS: polyethylene glycoL POWDER 17 GM (MIRALAX) PACK PO SCH ×2 (08:49→20:46)
[2020-03-08] MEDS: MICONAZOLE 2% POWDER (DESENEX AF) 90 GM TOP SCH ×2 (08:49→20:44)
[2020-03-08 08:55] VITALS: BP 105/70
--- NOTE | 2020-03-08 10:30 | NUR ---
Pastoral care visit.
--- NOTE | 2020-03-08 11:05 | Occupational Ther Daily Note ---
OT Current Status-Daily Note Subjective Pt agreeable to OT/PT cotreat on this date. She reports her pain is better managed but still present. She did not verbalize a pain rating. Mental Status/Objective Patient Orientation: Person, Place, Time, Situation Attachments: White Catheter ADL-Treatment Therapy Code Descriptions/Definitions Functional Page Measure: 0=Not Assessed/NA 4=Minimal Assistance 1=Total Assistance 5=Supervision or Setup 2=Maximal Assistance 6=Modified [place] 3=Moderate Assistance 7=Complete IndependenceSCALE: Activities may be completed with or without assistive devices. 1-Lylimvgmqu-pkleuro completes the activity by him/herself with no assistance from a helper. 5-Set-up or Clean-up Assistance-helper sets up or cleans up; patient completes activity. [place] assists only prior to or following the activity. 4-Supervision or Touching Assistance-helper provides verbal cues and/or touching/steadying and/or contact guard assistance as patient completes activity. Assistance may be provided throughout the activity or intermittently. 3-Partial/Moderate Assistance-helper does LESS THAN HALF the effort. [place] lifts, holds or supports trunk or limbs, but provides less than half the effort. 2-Substantial/Maximal Assistance-helper does MORE THAN HALF the effort. [place] lifts or holds trunk or limbs and provides more than half the effort. 0-Qsfibrvis-adpyti does ALL the effort. Patient does none of the effort to complete the activity. Or, the assistance of 2 or more helpers is required for the patient to complete the activity. If activity was not attempted, code reason: 7-Patient Refused. 9-Not Applicable-not attempted and the patient did not perform the activity before the current illness, exacerbation or injury. 10-Not Attempted due to Environmental Limitations-(lack of equipment, weather restraints, etc.). 88-Not Attempted due to Medical Conditions or Safety Concerns. Other Treatment OT/PT cotreat due to increased medical complexity, decreased functional ability, and paraplegia requiring the skill of 2 disciplines which a gas plant technician could not perform. OT focused on ADLs, UE placement, cues for safety and sequencing while PT focused on LE placement and overall gross movements. Pt laying in bed, washed her face with set up assistance. She then rolled side to side for laura sling placement. Pt transferred bed to w/c via laura. She then performed functional mobility in w/c in order to increase UE strength and to increase independence with functional mobility in home/community. She slowly self- propelled w/c, requiring assistance with turns and through narrow doorways. Pt completed functional mobility around PAU common area and 1st floor requiring rest breaks during task. Pt returned to her room, transferring from w/c to recliner via laura. Post OT/PT cotreat, pt seated in recliner, legs elevated with heels floating, call light in reach and all needs met. Education OT Patient Education: Correct positioning, Energy conservation, Exercise program, Modified ADL techniques, Progress toward Goal/Update tx plan, Purpose of tx/functional activities, Transfer techniques, W/C management Teaching Recipient: Patient Teaching Methods: Discussion Response to Teaching: Verbalize Understanding OT Short Term Goals Short Term Goals Time Frame: Mar 03, 2020 Toileting hygiene: 2 Shower/bathe self: 3 OT Group Home Goals Group Home Goals Time Frame: Mar 17, 2020 Eating (QC): 6 Oral Hygiene (QC): 6 Toileting Hygiene (QC): 4 Shower/Bathe Self (QC): 4 Upper Body Dressing (QC): 5 Lower Body Dressing (QC): 3 On/Off Footwear (QC): 6 Additional Goals: 1-Demonstrate ADL Tasks, 2-Verbalize Understanding, 3- ImproveStrength/Regulo 1=Demonstrate adherence to instructed precautions during ADL tasks. 2=Patient will verbalize/demonstrate understanding of assistive devices/modifications for ADL. 3=Patient will improve strength/tolerance for activity to enable patient to perform ADL's. OT Education/Plan Problem List/Assessment Assessment: Decreased Activ Tolerance, Decreased UE Strength, Dependent Transfers, Impaired Bed Mobility, Impaired Funct Balance, Impaired I ADL's, Impaired Self-Care Skills Discharge Recommendations Plan/Recommendations: Continue POC Treatment Plan/Plan of Care Patient would benefit from OT for education, treatment and training to promote independence in ADL's, mobility, safety and/or upper extremity function for ADL's. Plan of Care: ADL Retraining, Caregiver Training, Concurrent Therapy, Fu nctional Mobility, Group Exercise/Act as Ind, UE Funct Exercise/Act, W/C Management Training Treatment Duration: Mar 10, 2020 Frequency: At least 5 of 7 days/Wk (IRF) Estimated Hrs Per Day: 1.5 hours per day Agreement: Yes Rehab Potential: Poor Time/GCodes Start Time: 09:15 Stop Time: 10:45 Total Time Billed (hr/min): 90 Billed Treatment Time OT/PT cotdeniesat x90' 1, FA 6 WOLF EPPERSON OT Mar 08, 2020 11:05
--- NOTE | 2020-03-08 11:45 | Physical Therapy Daily Note ---
PT Daily Note-Current Subjective Pt agreeable to OT/PT cotreat on this date. She reports her pain is better managed but still present. She did not verbalize a pain rating. Transfers SCALE: Activities may be completed with or without assistive devices. 7-Zljfeqjxqd-kygtole completes the activity by him/herself with no assistance from a helper. 5-Set-up or Clean-up Assistance-helper sets up or cleans up; patient completes activity. [place] assists only prior to or following the activity. 4-Supervision or Touching Assistance-helper provides verbal cues and/or touch ing/steadying and/or contact guard assistance as patient completes activity. Assistance may be provided throughout the activity or intermittently. 3-Partial/Moderate Assistance-helper does LESS THAN HALF the effort. [place] lifts, holds or supports trunk or limbs, but provides less than half the effort. 2-Substantial/Maximal Assistance-helper does MORE THAN HALF the effort. [place] lifts or holds trunk or limbs and provides more than half the effort. 5-Glvlvvivy-nhzzwr does ALL the effort. Patient does none of the effort to complete the activity. Or, the assistance of 2 or more helpers is required for the patient to complete the activity. If activity was not attempted, code reason: 7-Patient Refused. 9-Not Applicable-not attempted and the patient did not perform the activity before the current illness, exacerbation or injury. 10-Not Attempted due to Environmental Limitations-(lack of equipment, weather restraints, etc.). 88-Not Attempted due to Medical Conditions or Safety Concerns. Roll Left & Right (QC): 2 Sit to Lying (QC): 1 Lying to Sitting/Side of Bed(Q: 1 Wheelchair Training Does the Pt Use a Wheelchair?: Yes Wheel 50 ft with 2 turns (QC): 5 Wheel 150 ft (QC): 5 Type of Wheelchair: Manual Treatments OT/PT cotreat due to increased medical complexity, decreased functional ability, and paraplegia requiring the skill of 2 disciplines which a surgical tech could not perform. OT focused on ADLs, UE placement, cues for safety and sequencing while PT focused on LE placement and overall gross movements. Pt laying in bed, washed her face with set up assistance. She then rolled side to side for sugar sling placement. Pt transferred bed to w/c via sugar. She then performed functional mobility in w/c in order to increase UE strength and to increase independence with functional mobility in home/community. She slowly self-prope lled w/c, requiring assistance with turns and through narrow doorways. Pt completed functional mobility around [facility] common area and 1st floor requiring rest breaks during task. Pt returned to her room, transferring from w/c to recliner via sugar. Post OT/PT cotreat, pt seated in recliner, legs elevated with heels floating, call light in reach and all needs met. Assessment Current Status: Fair Progress Pt is able to tolerate Sugar transfer more comfortably as well as sit up in WC and propel self extended distance today. PT Short Term Goals Short Term Goals Time Frame: Mar 03, 2020 Roll Left & Right: 2 PT Director Family Goals Shelter Goals PT Shelter Goals Time Frame: Mar 17, 2020 Roll Left & Right (QC): 2 Sit to Lying (QC): 88 Lying-Sitting on Side/Bed(QC): 88 Sit to Stand (QC): 88 Chair/Pzb-oj-Zyvof Xfer(QC): 88 Toilet Transfer (QC): 88 Car Transfer (QC): 88 Does the Patient Walk: No and Walking Goal NOT indicated Walk 10 feet (QC): 88 Walk 50ft with 2 Turns (QC): 88 Walk 150 ft (QC): 88 Walking 10ft on Uneven Surface: 88 1 Step (curb) (QC): 88 4 Steps (QC): 88 12 Steps (QC): 88 Picking up an Object (QC): 88 Wheel 50 feet with 2 turns (QC: 4 Type: Motorized Wheel 150 feet: 4 Type: Motorized PT Plan Problem List Problem List: Activity Tolerance, Functional Strength, Safety, Balance, Gait, Transfer, Bed Mobility, ROM Treatment/Plan Treatment Plan: Continue Plan of Care Treatment Plan: Bed Mobility, Education, Functional Activity Regulo, Functional Strength, Group Therapy, Safety, Therapeutic Exercise, Transfers Treatment Duration: Mar 17, 2020 Frequency: At least 5 of 7 days/Wk (IRF) Estimated Hrs Per Day: 1.5 hours per day Patient and/or Family Agrees t: Yes Safety Risks/Education Patient Education: Transfer Techniques, Correct Positioning, W/C Management, Safety Issues Teaching Recipient: Patient Teaching Methods: Discussion Response to Teaching: Verbalize Understanding Time/GCodes Time In: 915 Time Out: 1045 Total Billed Treatment Time: 90 Total Billed Treatment 1, H (45m) & FA x3 (45m) 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
--- NOTE | 2020-03-08 12:25 | PM&R Progress Note ---
Subjective HPI/CC On Admission Date Seen by Provider: Mar 08, 2020 Time Seen by Provider: 11:00 Subjective/Events-last exam Decreased pain today and it may be from Lidocaine patch helping a bit Lidocaine patch along with K-pad maintained BM 03/05/20 Sugar lift dependent Tried to maintain optimistic attitude for her ML of [place] is likely the disposition for her ultimately Baclofen maintained 2L/min maintained at HS Checked meds and labs Conferred wtih RN Reviewed therapy notes Review of Systems General: Fatigue Genitourinary: Retention Musculoskeletal: back pain Objective Exam Vital Signs Vital Signs Date Time Temp Pulse Resp B/P (MAP) Pulse Ox O2 Delivery O2 Flow Rate FiO2 03/08/20 17:42 35.8 80 16 96/61 (73) 92 Room Air 03/08/20 06:00 2.00 03/04/20 18:29 21 Capillary Refill : Less Than 3 SecondsLess Than 3 Seconds General Appearance: No Apparent Distress, WD/WN, Chronically ill, Obese HEENT: PERRL/EOMI, Normal ENT Inspection, Pharynx Normal Neck: Full Range of Motion, Normal Inspection, Non Tender, Supple, Carotid Bruit Respiratory: Chest Non Tender, Lungs Clear, Normal Breath Sounds, No Accessory Muscle Use, No Respiratory Distress Cardiovascular: Regular Rate, Rhythm, No Gallop, No JVD, No Murmur, Normal Peripheral Pulses Gastrointestinal: Normal Bowel Sounds, No Organomegaly, No Pulsatile Mass, Non Tender, Soft Back: Normal Inspection, No CVA Tenderness, Decreased Range of Motion Extremity: Normal Capillary Refill, Normal Inspection, Pedal Edema Neurologic/Psychiatric: Alert, Oriented x3, wheel setter II-XII Norm as Tested, Depressed Affect, Motor Weakness Skin: Normal Color, Warm/Dry Lymphatic: No Adenopathy Results/Procedures Lab Patient resulted labs reviewed. FIM Transfers Therapy Code Descriptions/Definitions Functional [place] Measure: 0=Not Assessed/NA 4=Minimal Assistance 1=Total Assistance 5=Supervision or Setup 2=Maximal Assistance 6=Modified [place] 3=Moderate Assistance 7=Complete IndependenceSCALE: Activities may be completed with or without assistive devices. 9-Amdjezddhv-toxwcvm completes the activity by him/herself with no assistance from a helper. 5-Set-up or Clean-up Assistance-helper sets up or cleans up; patient completes activity. [place] assists only prior to or following the activity. 4-Supervision or Touching Assistance-helper provides verbal cues and/or touching/steadying and/or contact guard assistance as patient completes activity. Assistance may be provided throughout the activity or intermittently. 3-Partial/Moderate Assistance-helper does LESS THAN HALF the effort. [place] lifts, holds or supports trunk or limbs, but provides less than half the effort. 2-Substantial/Maximal Assistance-helper does MORE THAN HALF the effort. [place] lifts or holds trunk or limbs and provides more than half the effort. 1-Zqxrmlllp-jdfsrl does ALL the effort. Patient does none of the effort to complete the activity. Or, the assistance of 2 or more helpers is required for the patient to complete the activity. If activity was not attempted, code reason: 7-Patient Refused. 9-Not Applicable-not attempted and the patient did not perform the activity before the current illness, exacerbation or injury. 10-Not Attempted due to Environmental Limitations-(lack of equipment, weather restraints, etc.). 88-Not Attempted due to Medical Conditions or Safety Concerns. Roll Left to Right (QC): 2 Sit to Lying (QC): 1 Sit to Stand (QC): 1 Chair/Hub-bz-Vytlw Xfer(QC): 1 Car Transfer (QC): 88 Gait Training Does the Patient Walk?: No and Walking Goal NOT indicated Walk 10 feet (QC): 88 Walk 50 ft with 2 Turns(QC): 88 Walk 150 ft (QC): 88 Walking 10ft/uneven surface-QC: 88 Wheelchair Training Does the Pt Use a Wheelchair?: Yes Wheel 50 ft with 2 turns (QC): 5 Wheel 150 ft (QC): 5 Type of Wheelchair: Manual Stair Training 1 Step (curb) (QC): 88 4 Steps (QC): 88 12 Steps (QC): 88 Balance Picking up an Object (QC): 88 ADL-Treatment Eating (QC): 6 Oral Hygiene (QC): 6 (completes with items set in front of pt in recliner chair.) Bathing Location: L Arm, R Arm, L Upper Leg, R Upper Leg, L Lower Leg (inc luding foot), R Lower Leg (including foot), Chest, Abdomen Shower/Bathe Self (QC): 1 (Pt is able to reach most areas sitting on shower chair. The amount of assistance needed to cleanse jonny area/buttocks makes QC's dependent.) Upper Body Dressing (QC): 3 (Pt able to thread night gown over her head and arms. She required assistance managing down her back and down her sides as she performed sideleans in recliner.) Lower Body Dressing (QC): 1 (TD) On/Off Footwear (QC): 1 (Pt dependent for task.) Toileting Hygiene (QC): 1 (Pt rolled side to side in bed in order for OT to assist with washing buttocks, and periarea) Assessment/Plan Assessment and Plan Assess & Plan/Chief Complaint Assessment: (1) Paraplegia at T9 level ICD Codes: G82.20 - Paraplegia, unspecified (2) Acute osteomyelitis of spine Status: Acute ICD Codes: M46.20 - Osteomyelitis of vertebra, site unspecified (3) White catheter in place ICD Codes: Z96.0 - Presence of urogenital implants (4) Neurogenic bladder ICD Codes: N31.9 - Neuromuscular dysfunction of bladder, unspecified (5) Chronic mental illness ICD Codes: F99 - Mental disorder, not otherwise specified (6) Depression ICD Codes: F32.9 - Major depressive disorder, single episode, unspecified (7) H/O gastric bypass ICD Codes: Z98.84 - Bariatric surgery status (8) Fecal incontinence ICD Codes: R15.9 - Full incontinence of feces (9) Acute respiratory failure with hypoxia Status: Acute ICD Codes: J96.01 - Acute respiratory failure with hypoxia (10) T2DM (type 2 diabetes mellitus) Status: Chronic ICD Codes: E11.9 - Type 2 diabetes mellitus without complications (11) Paresthesia of both legs Status: Acute ICD Codes: R20.2 - Paresthesia of skin (12) RLS (restless legs syndrome) Status: Chronic ICD Codes: G25.81 - Restless legs syndrome (13) Elevated liver function tests Status: Acute ICD Codes: R94.5 - Abnormal results of liver function studies (14) HLD (hyperlipidemia) Status: Chronic ICD Codes: E78.5 - Hyperlipidemia, unspecified (15) HTN (hypertension) Status: Chronic ICD Codes: I10 - Essential (primary) hypertension (16) Morbid obesity Status: Chronic ICD Codes: E66.01 - Morbid (severe) obesity due to excess calories (17) Shortness of breath Status: Acute ICD Codes: R06.02 - Shortness of breath (18) Hypoxia Status: Acute ICD Codes: R09.02 - Hypoxemia GERD Plan: IRF Wheelchair mobility with bariatric wheelchair Increase ADL's in order to return home with caregivers nephew and daughter but likely will need to go to NH since so dependent and her obesity restrictions Psych evaluation appreciated but could need another visit in the future upon DC BM regimen to maintain to prevent narcotic bowel Neurogenic bladder will likely need SP cath in the future but keep in-dwelling for now Pain control PPI with TUMS Levaquin for osteomyelitis of spine IV form maintained until end of month Steroids completed Changed Lasix to PO form Long acting narcotic maintained along with break through pain med Accucheck only in am daily Lidocaine patch with K-pad (1) Paraplegia at T9 level (2) Acute osteomyelitis of spine Status: Acute (3) White catheter in place (4) Neurogenic bladder (5) Chronic mental illness (6) Depression (7) H/O gastric bypass (8) Fecal incontinence (9) Acute respiratory failure with hypoxia Status: Acute (10) T2DM (type 2 diabetes mellitus) Status: Chronic (11) Paresthesia of both legs Status: Acute (12) RLS (restless legs syndrome) Status: Chronic (13) Elevated liver function tests Status: Acute (14) HLD (hyperlipidemia) Status: Chronic (15) HTN (hypertension) Status: Chronic (16) Morbid obesity Status: Chronic (17) Shortness of breath Status: Acute (18) Hypoxia Status: Acute KATELYN JENSEN DO Mar 08, 2020 12:25
--- NOTE | 2020-03-08 15:08 | NUR ---
"RD ASSESSMENT PMHx: HTN; DM; HLD; GERD; obesity; paraplegia PT INTERACTION: Pt was awake and pleasant during nutrition follow-up. Pt states she has been eating okay since last assessment. Note avg PO intake 59% x4d, per chart review. Pt states no issues with n/v/c/d since last assessment. Note last assessment on 03/05 and pt currently on bowel regimen of Colace BID; Senna BID; and Miralax BID, per chart review. ABNORMAL NUTRITION-RELATED LAB VALUES Labs Taken 03/06 LOW: K 3.2; Cl 97; alb 2.7 HIGH: Est. kcal needs: 5299-5691 kcal | 25-30 kcal/kg IBW, based on IBW of 61.4 kg (135#) Est. Pro needs: 49-61 g Pro | 0.8-1.0 g Pro/kg IBW, based on IBW of 61.4 kg (135#) PES STATEMENT: Inadequate oral intake (NI-2.1) related to loss of appetite as evidenced by pt interview | avg PO intake 59% x4d INTERVENTION: Continue with current diet order of CHO 75g/m 0snack diet. Add Glucerna (straw/luis angel) to meals TID, for increased kcal intake. Provides 220 kcal and 10 g Pro per serving. Will continue to follow and reassess as pt needs, intake, and status change. MONITOR/EVALUATE: PO Intake; Plan of Care; Hydration Status; Weight Status; Lab Values Miladys Kaufman, MS, RD, LD"
[2020-03-08] MEDS: LEVOFLOXACIN 750 MG/150 ML IV 150 ML IV SCH (15:29)
[2020-03-08 17:42] VITALS: BP 96/61
[2020-03-08] MEDS: rOPINIRole 1 MG (REQUIP) TABLET PO SCH (20:43)
[2020-03-08] MEDS: LIDOCAINE PATCH REMOVAL TP SCH (20:44)
[2020-03-09] MEDS: BACLOFEN 10 MG (LIORESAL) TAB PO PRN (04:01)
[2020-03-09 05:44] VITALS: BP 92/62
[2020-03-09] MEDS: CATHETER FLUSH 10 ML SYR IV SCH ×3 (06:17→22:28)
[2020-03-09] MEDS: oxyCODONE ER 10 MG (OxyCONTIN CR) TAB PO SCH ×2 (06:20→18:16)
[2020-03-09] MEDS: KCL 10 MEQ TAB (MICRO K) PO SCH ×2 (06:31→18:16)
[2020-03-09] MEDS: ENOXAPARIN 40 MG/0.4 ML (LOVENOX) SYR SC SCH ×2 (09:26→20:25)
[2020-03-09] MEDS: VENlafaxine 75 MG (EFFEXOR) TAB PO SCH ×4 (09:27→20:25)
[2020-03-09] MEDS: PANTOPRAZOLE 40 MG (PROTONIX) TAB PO SCH (09:28)
[2020-03-09] MEDS: LACTOBACILLUS ACIDOPHILUS (PROBIOTIC) CAPSULE PO SCH ×3 (09:28→18:15)
[2020-03-09] MEDS: DOCUSATE SODIUM 100 MG (COLACE) CAP PO SCH ×2 (09:28→20:24)
[2020-03-09] MEDS: GABAPENTIN 300 MG (NEURONTIN) CAP PO SCH ×3 (09:28→20:25)
[2020-03-09] MEDS: toPIRamate 25 MG (TOPAMAX) TAB PO SCH (09:28)
[2020-03-09] MEDS: ZONISAMIDE 100 MG CAP (ZONEGRAN) NON-FORMULARY PO SCH ×2 (09:28→20:25)
[2020-03-09] MEDS: SENNA W/DOCUSATE (SENOKOT S) TABLET PO SCH ×2 (09:29→20:25)
[2020-03-09] MEDS: SENNOSIDES 8.6 MG (SENOKOT) TAB PO SCH ×2 (09:29→20:25)
[2020-03-09] MEDS: polyethylene glycoL POWDER 17 GM (MIRALAX) PACK PO SCH ×2 (09:29→20:25)
[2020-03-09] MEDS: ARTIFICAL TEARS 0.4 ML UNIT DOSE (REFRESH PLUS) OU SCH ×3 (09:29→20:25)
[2020-03-09] MEDS: meTOprolol TARTRATE 25 MG (LOPRESSOR) TABLET PO SCH ×2 (09:29→20:29)
[2020-03-09] MEDS: MICONAZOLE 2% POWDER (DESENEX AF) 90 GM TOP SCH ×2 (09:30→20:26)
[2020-03-09] MEDS: LIDOCAINE 4% (SALONPAS) PATCH TOP SCH (09:30)
[2020-03-09] MEDS: FUROSEMIDE 40 MG (LASIX) TAB PO SCH (09:35)
--- NOTE | 2020-03-09 09:58 | Occupational Ther Daily Note ---
OT Current Status-Daily Note Subjective Pt laying in bed at start of session, agreeable to OT/PT cotreat. She did not verbalize pain rating during tx, but did report some pain during laura transfers. Mental Status/Objective Attachments: White Catheter ADL-Treatment Therapy Code Descriptions/Definitions Functional [place] Measure: 0=Not Assessed/NA 4=Minimal Assistance 1=Total Assistance 5=Supervision or Setup 2=Maximal Assistance 6=Modified [place] 3=Moderate Assistance 7=Complete IndependenceSCALE: Activities may be completed with or without assistive devices. 2-Fdotxprldb-ffqkqgr completes the activity by him/herself with no assistance from a helper. 5-Set-up or Clean-up Assistance-helper sets up or cleans up; patient completes activity. [place] assists only prior to or following the activity. 4-Supervision or Touching Assistance-helper provides verbal cues and/or touching/steadying and/or contact guard assistance as patient completes activit y. Assistance may be provided throughout the activity or intermittently. 3-Partial/Moderate Assistance-helper does LESS THAN HALF the effort. [place] lifts, holds or supports trunk or limbs, but provides less than half the effort. 2-Substantial/Maximal Assistance-helper does MORE THAN HALF the effort. [place] lifts or holds trunk or limbs and provides more than half the effort. 0-Xqbgbweno-adiazo does ALL the effort. Patient does none of the effort to complete the activity. Or, the assistance of 2 or more helpers is required for the patient to complete the activity. If activity was not attempted, code reason: 7-Patient Refused. 9-Not Applicable-not attempted and the patient did not perform the activity before the current illness, exacerbation or injury. 10-Not Attempted due to Environmental Limitations-(lack of equipment, weather restraints, etc.). 88-Not Attempted due to Medical Conditions or Safety Concerns. Eating (QC): 6 (Per pt report.) Oral Hygiene (QC): 5 (Pt able to brush her teeth with set up/clean up of supplies at tray table.) Shower/Bathe Self (QC): 2 (Max A shower. Pt transferred to large shower chair via laura. She was taken to the large shower room. She washed UEs, chest and abdomen, requiring assistance washing under stomach and LEs. OT educated pt on using long handled sponge in order to was LEs, but still required assistance for thoroughness due to decreased sensation/paraplegia.) Upper Body Dressing (QC): 88 (Pt donned hospital gown on this date, thus no QC score given. Based on clinical reasoning & past txs, pt would require mod assist with donning pack puller dress. She would be able to manage arms/head into gown but require assistance pulling gown down her back and to cover he sides.) Lower Body Dressing (QC): 88 (Not attempted, based on clinical r easoning/paraplegia, pt would be dependent with task.) On/Off Footwear: 88 (Not attempted, based on clinical reasoning/paraplegia, pt would be dependent with task.) Toileting Hygiene (QC): 1 (Pt rolled side to side in bed in order for OT to perform toilet hygiene dependently. During rolling pt requires max A x1, or mod A x2.) Toilet Transfer (QC): 88 (not attempted due to paraplegia/safety concerns.) Other Treatment OT/PT cotreat due to increased medical complexity, decreased functional ability, and paraplegia requiring the skill of 2 disciplines which a director of rehabilitation could not perform. OT focused on ADLs, UE placement, cues for safety and sequencing while PT focused on LE placement and overall gross movements. Pt laying in bed, rolled side to side for toilet hygiene and laura sling placement. Pt then transferred to large shower chair and taken to large shower room. She completed showering and dressing, then returned to her room, transferring to the bed. Pt rolled side to side in order to take out wet sling, and place a dry laura sling underneath. Pt then transferred to recliner. Post OT/PT cotreat, pt sitting upright in recliner, call light in reach and all needs met. Nurse present giving meds. Education OT Patient Education: Correct positioning, Energy conservation, Modified ADL techniques, Progress toward Goal/Update tx plan, Purpose of tx/functional activities, Safety issues, Transfer techniques, Use of adapted equipment Teaching Recipient: Patient Teaching Methods: Discussion Response to Teaching: Verbalize Understanding OT Short Term Goals Short Term Goals Time Frame: Mar 03, 2020 Toileting hygiene: 2 Shower/bathe self: 3 OT Senior Care Goals Senior Care Goals Time Frame: Mar 17, 2020 Eating (QC): 6 Oral Hygiene (QC): 6 Toileting Hygiene (QC): 4 Shower/Bathe Self (QC): 4 Upper Body Dressing (QC): 5 Lower Body Dressing (QC): 3 On/Off Footwear (QC): 6 Additional Goals: 1-Demonstrate ADL Tasks, 2-Verbalize Understanding, 3- ImproveStrength/Regulo 1=Demonstrate adherence to instructed precautions during ADL tasks. 2=Patient will verbalize/demonstrate understanding of assistive devices/modifications for ADL. 3=Patient will improve strength/tolerance for activity to enable patient to perform ADL's. OT Education/Plan Problem List/Assessment Assessment: Decreased Activ Tolerance, Decreased UE Strength, Dependent Transfers, Impaired Bed Mobility, Impaired Funct Balance, Impaired I ADL's, Impaired Self-Care Skills Discharge Recommendations Plan/Recommendations: Continue POC Treatment Plan/Plan of Care Patient would benefit from OT for education, treatment and training to promote independence in ADL's, mobility, safety and/or upper extremity function for ADL's. Plan of Care: ADL Retraining, Caregiver Training, Concurrent Therapy, Functional Mobility, Group Exercise/Act as Ind, UE Funct Exercise/Act, W/C Management Training Treatment Duration: Mar 10, 2020 Frequency: At least 5 of 7 days/Wk (IRF) Estimated Hrs Per Day: 1.5 hours per day Agreement: Yes Rehab Potential: Poor Time/GCodes Start Time: 08:15 Stop Time: 09:45 Total Time Billed (hr/min): 90 Billed Treatment Time 1, ADL 6 WOLF EPPERSON OT Mar 09, 2020 09:58
--- NOTE | 2020-03-09 10:09 | Physical Therapy Daily Note ---
PT Daily Note-Current Subjective Pt laying Supine in bed. Pt agrees to PT/OT co-treat. Pt reports pain during Sugar transfer but doesn't rate pain. Mental Status Patient Orientation: Person, Place, Situation Transfers SCALE: Activities may be completed with or without assistive devices. 6-Mtxnnkcilv-bnjimed completes the activity by him/herself with no assistance from a helper. 5-Set-up or Clean-up Assistance-helper sets up or cleans up; patient completes activity. [place] assists only prior to or following the activity. 4-Supervision or Touching Assistance-helper provides verbal cues and/or touching/steadying and/or contact guard assistance as patient completes activity. Assistance may be provided throughout the activity or intermittently. 3-Partial/Moderate Assistance-helper does LESS THAN HALF the effort. [place] lifts, holds or supports trunk or limbs, but provides less than half the effort. 2-Substantial/Maximal Assistance-helper does MORE THAN HALF the effort. [place] lifts or holds trunk or limbs and provides more than half the effort. 2-Qesadpcmq-lqyvxi does ALL the effort. Patient does none of the effort to complete the activity. Or, the assistance of 2 or more helpers is required for the patient to complete the activity. If activity was not attempted, code reason: 7-Patient Refused. 9-Not Applicable-not attempted and the patient did not perform the activity before the current illness, exacerbation or injury. 10-Not Attempted due to Environmental Limitations-(lack of equipment, weather restraints, etc.). 88-Not Attempted due to Medical Conditions or Safety Concerns. Roll Left & Right (QC): 2 Sit to Lying (QC): 1 Lying to Sitting/Side of Bed(Q: 1 Sit to Stand (QC): 88 Chair/Smu-do-Krvhs Xfer(QC): 1 Car Transfer (QC): 88 Exercises Supine Ex: Rolling Treatments OT/PT cotreat due to increased medical complexity, decreased functional ability, and paraplegia requiring the skill of 2 disciplines which a rehab rn could not perform. OT focused on ADLs, UE placement, cues for safety and sequencing while PT focused on LE placement and overall gross movements. Pt laying in bed, rolled side to side for toilet hygiene and sugar sling placement. Pt then transferred to large shower chair and taken to large shower room. She completed showering and dressing, then returned to her room, transferring to the bed. Pt rolled side to side in order to take out wet sling, and place a dry sugar sling underneath. Pt then transferred to recliner. Post OT/PT cotreat, pt sitting upright in recliner, call light in reach and all needs met. Nurse present giving meds. Assessment Current Status: Fair Progress Pt continues to reports pain in back during transfers with Sugar. Pt limited by pain, lack of sensation in legs & weakness. PT Short Term Goals Short Term Goals Time Frame: Mar 03, 2020 Roll Left & Right: 2 PT Intermediate Goals Orchard Manager Goals PT Orchard Manager Goals Time Frame: Mar 17, 2020 Roll Left & Right (QC): 2 Sit to Lying (QC): 88 Lying-Sitting on Side/Bed(QC): 88 Sit to Stand (QC): 88 Chair/Ctm-jf-Setrb Xfer(QC): 88 Toilet Transfer (QC): 88 Car Transfer (QC): 88 Does the Patient Walk: No and Walking Goal NOT indicated Walk 10 feet (QC): 88 Walk 50ft with 2 Turns (QC): 88 Walk 150 ft (QC): 88 Walking 10ft on Uneven Surface: 88 1 Step (curb) (QC): 88 4 Steps (QC): 88 12 Steps (QC): 88 Picking up an Object (QC): 88 Wheel 50 feet with 2 turns (QC: 4 Type: Motorized Wheel 150 feet: 4 Type: Motorized PT Plan Problem List Problem List: Activity Tolerance, Functional Strength, Safety, Balance, Gait, Transfer, Bed Mobility Treatment/Plan Treatment Plan: Continue Plan of Care Treatment Plan: Bed Mobility, Education, Functional Activity Regulo, Functional Strength, Group Therapy, Safety, Therapeutic Exercise, Transfers Treatment Duration: Mar 17, 2020 Frequency: At least 5 of 7 days/Wk (IRF) Estimated Hrs Per Day: 1.5 hours per day Patient and/or Family Agrees t: Yes Safety Risks/Education Patient Education: Transfer Techniques, Correct Positioning, Safety Issues Teaching Recipient: Patient Teaching Methods: Discussion Response to Teaching: Verbalize Understanding Time/GCodes Time In: 815 Time Out: 945 Total Billed Treatment Time: 90 Total Billed Treatment 1, FA x5 (75m) & EX (15m) Co-treat w/OT for 90m NIRMAL CORREIA LATEXER Mar 09, 2020 10:09
[2020-03-09] MEDS: MICONAZOLE NITRATE 2% CRM 30 GM TP SCH ×2 (11:54→20:26)
--- NOTE | 2020-03-09 12:04 | PM&R Progress Note ---
Subjective HPI/CC On Admission Date Seen by Provider: Mar 09, 2020 Time Seen by Provider: 10:30 Subjective/Events-last exam Decreased pain today and it may be still be from Lidocaine patch helping a bit and will continue that tank terminal gauger if needed K-pad maintained BM 03/07/20 Sugar lift dependent Tried to maintain optimistic attitude for her ML of [place] is likely the disposition for her ultimately so SW is reaching out Baclofen maintained and seems to help muscle spasms 2L/min maintained at HS and will need home O2 evaluation for night time supplem ent Checked meds and labs Conferred wtih RN Reviewed therapy notes Review of Systems Neurological: Weakness, Numbness, Incoordination Objective Exam Vital Signs Vital Signs Date Time Temp Pulse Resp B/P (MAP) Pulse Ox O2 Delivery O2 Flow Rate FiO2 03/10/20 08:10 Room Air 03/10/20 06:13 36.4 73 18 91/58 (69) 96 03/09/20 21:00 2.00 03/04/20 18:29 21 Capillary Refill : Less Than 3 SecondsLess Than 3 Seconds General Appearance: No Apparent Distress, WD/WN, Chronically ill, Obese HEENT: PERRL/EOMI, Normal ENT Inspection, Pharynx Normal Neck: Full Range of Motion, Normal Inspection, Non Tender, Supple, Carotid Bruit Respiratory: Chest Non Tender, Lungs Clear, Normal Breath Sounds, No Accessory Muscle Use, No Respiratory Distress Cardiovascular: Regular Rate, Rhythm, No Gallop, No JVD, No Murmur, Normal Peripheral Pulses Gastrointestinal: Normal Bowel Sounds, No Organomegaly, No Pulsatile Mass, Non Tender, Soft Back: Normal Inspection, No CVA Tenderness, Decreased Range of Motion Extremity: Normal Capillary Refill, Normal Inspection, Pedal Edema Neurologic/Psychiatric: Alert, Oriented x3, horse and wagon driver II-XII Norm as Tested, Depressed Affect, Motor Weakness Skin: Normal Color, Warm/Dry Lymphatic: No Adenopathy Results/Procedures Lab Patient resulted labs reviewed. FIM Transfers Therapy Code Descriptions/Definitions Functional [place] Measure: 0=Not Assessed/NA 4=Minimal Assistance 1=Total Assistance 5=Supervision or Setup 2=Maximal Assistance 6=Modified [place] 3=Moderate Assistance 7=Complete IndependenceSCALE: Activities may be completed with or without assistive devices. 8-Xsrcleswqi-pjufpru completes the activity by him/herself with no assistance from a helper. 5-Set-up or Clean-up Assistance-helper sets up or cleans up; patient completes activity. [place] assists only prior to or following the activity. 4-Supervision or Touching Assistance-helper provides verbal cues and/or touching/steadying and/or contact guard assistance as patient completes activity. Assistance may be provided throughout the activity or intermittently. 3-Partial/Moderate Assistance-helper does LESS THAN HALF the effort. [place] lifts, holds or supports trunk or limbs, but provides less than half the effort. 2-Substantial/Maximal Assistance-helper does MORE THAN HALF the effort. [place] lifts or holds trunk or limbs and provides more than half the effort. 2-Ofnqkvzfb-mrtatn does ALL the effort. Patient does none of the effort to complete the activity. Or, the assistance of 2 or more helpers is required for the patient to complete the activity. If activity was not attempted, code reason: 7-Patient Refused. 9-Not Applicable-not attempted and the patient did not perform the activity before the current illness, exacerbation or injury. 10-Not Attempted due to Environmental Limitations-(lack of equipment, weather restraints, etc.). 88-Not Attempted due to Medical Conditions or Safety Concerns. Roll Left to Right (QC): 2 Sit to Lying (QC): 1 Sit to Stand (QC): 88 Chair/Ibs-zg-Tasev Xfer(QC): 1 Car Transfer (QC): 88 Gait Training Does the Patient Walk?: No and Walking Goal NOT indicated Walk 10 feet (QC): 88 Walk 50 ft with 2 Turns(QC): 88 Walk 150 ft (QC): 88 Walking 10ft/uneven surface-QC: 88 Wheelchair Training Does the Pt Use a Wheelchair?: Yes Wheel 50 ft with 2 turns (QC): 5 Wheel 150 ft (QC): 5 Type of Wheelchair: Manual Stair Training 1 Step (curb) (QC): 88 4 Steps (QC): 88 12 Steps (QC): 88 Balance Picking up an Object (QC): 88 ADL-Treatment Eating (QC): 6 (Per pt report.) Oral Hygiene (QC): 5 (Pt able to brush her teeth with set up/clean up of supplies at tray table.) Bathing Location: L Arm, R Arm, L Upper Leg, R Upper Leg, L Lower Leg (including foot), R Lower Leg (including foot), Chest, Abdomen Shower/Bathe Self (QC): 2 (Max A shower. Pt transferred to large shower chair via sugar. She was taken to the large shower room. She washed UEs, chest and abdomen, requiring assistance washing under stomach and LEs. OT educated pt on using long handled sponge in order to was LEs, but still required assistance for thoroughness due to decreased sensation/paraplegia.) Upper Body Dressing (QC): 88 (Pt donned hospital gown on this date, thus no QC score given. Based on clinical reasoning & past txs, pt would require mod assist with donning pan puller dress. She would be able to manage arms/head into gown but require assistance pulling gown down her back and to cover he sides.) Lower Body Dressing (QC): 88 (Not attempted, based on clinical reasoning/paraplegia, pt would be dependent with task.) On/Off Footwear (QC): 88 (Not attempted, based on clinical reasoning/par aplegia, pt would be dependent with task.) Toileting Hygiene (QC): 1 (Pt rolled side to side in bed in order for OT to perform toilet hygiene dependently. During rolling pt requires max A x1, or mod A x2.) Toilet Transfer (QC): 88 (not attempted due to paraplegia/safety concerns.) Assessment/Plan Assessment and Plan Assess & Plan/Chief Complaint Assessment: (1) Paraplegia at T9 level ICD Codes: G82.20 - Paraplegia, unspecified (2) Acute osteomyelitis of spine Status: Acute ICD Codes: M46.20 - Osteomyelitis of vertebra, site unspecified (3) White catheter in place ICD Codes: Z96.0 - Presence of urogenital implants (4) Neurogenic bladder ICD Codes: N31.9 - Neuromuscular dysfunction of bladder, unspecified (5) Chronic mental illness ICD Codes: F99 - Mental disorder, not otherwise specified (6) Depression ICD Codes: F32.9 - Major depressive disorder, single episode, unspecified (7) H/O gastric bypass ICD Codes: Z98.84 - Bariatric surgery status (8) Fecal incontinence ICD Codes: R15.9 - Full incontinence of feces (9) Acute respiratory failure with hypoxia Status: Acute ICD Codes: J96.01 - Acute respiratory failure with hypoxia (10) T2DM (type 2 diabetes mellitus) Status: Chronic ICD Codes: E11.9 - Type 2 diabetes mellitus without complications (11) Paresthesia of both legs Status: Acute ICD Codes: R20.2 - Paresthesia of skin (12) RLS (restless legs syndrome) Status: Chronic ICD Codes: G25.81 - Restless legs syndrome (13) Elevated liver function tests Status: Acute ICD Codes: R94.5 - Abnormal results of liver function studies (14) HLD (hyperlipidemia) Status: Chronic ICD Codes: E78.5 - Hyperlipidemia, unspecified (15) HTN (hypertension) Status: Chronic ICD Codes: I10 - Essential (primary) hypertension (16) Morbid obesity Status: Chronic ICD Codes: E66.01 - Morbid (severe) obesity due to excess calories (17) Shortness of breath Status: Acute ICD Codes: R06.02 - Shortness of breath (18) Hypoxia Status: Acute ICD Codes: R09.02 - Hypoxemia GERD Plan: IRF Wheelchair mobility with bariatric wheelchair Increase ADL's in order to decrease burden to caregivers at [place] since so dependent and her obesity restrictions Psych evaluation appreciated but could need another visit in the future upon DC BM regimen to maintain to prevent narcotic bowel Neurogenic bladder will likely need SP cath in the future but keep in-dwelling for now Pain control PPI with TUMS Levaquin for osteomyelitis of spine IV form maintained until end of month Steroids completed Changed Lasix to PO form Long acting narcotic maintained along with break through pain med Accucheck only in am daily Lidocaine patch with K-pad (1) Paraplegia at T9 level (2) Acute osteomyelitis of spine Status: Acute (3) White catheter in place (4) Neurogenic bladder (5) Chronic mental illness (6) Depression (7) H/O gastric bypass (8) Fecal incontinence (9) Acute respiratory failure with hypoxia Status: Acute (10) T2DM (type 2 diabetes mellitus) Status: Chronic (11) Paresthesia of both legs Status: Acute (12) RLS (restless legs syndrome) Status: Chronic (13) Elevated liver function tests Status: Acute (14) HLD (hyperlipidemia) Status: Chronic (15) HTN (hypertension) Status: Chronic (16) Morbid obesity Status: Chronic (17) Shortness of breath Status: Acute (18) Hypoxia Status: Acute KATELYN JENSEN DO Mar 09, 2020 12:04
[2020-03-09] MEDS ORDERED: ALTEPLASE 2 MG (CATHFLO) IV ONE (14:30)
[2020-03-09] MEDS ORDERED: WATER (STERILE) FOR INJECTION 10 ML ONE (14:31)
[2020-03-09] MEDS: LEVOFLOXACIN 750 MG/150 ML IV 150 ML IV SCH (16:08)
--- NOTE | 2020-03-09 16:47 | NUR ---
CM/SS WEEKLY TEAM CONFERENCE SUMMARY Visited with patient this p.m. regarding Conference summary. Patient stated that physician had talked with her at length this morning and that the information helped clarify her next steps. Barriers to discharge back home were overwhelming, patient requires dependent care and generally at least two caregivers to perform safe transfers Her family members were more than willing to try to provide, but they would only be available one at a time and not consistently due to their own life demands. Aside from the obvious regarding care, patient size/weight requires bariatric DME and anticipated difficulty for access to and from and about the home. Patient stated that she knew her best next step would be return to [facility]. Her plan would continue to be that her family could be educated about her specific care needs and that perhaps she could eventually return home. She plans to speak with her family tonight to share her decision with them and ask for their support. Patient new goal, then, is to pursue placement with [facility]. Nylon Machine Operator will contact facility tomorrow to inquire. Patient understands that targeted discharge is Friday, March 15, 2020. Transportation may be via EMS, will work in partnership with [facility] therapy staff and [facility] regarding wheelchair van option. COVID19 Assessment Statement will be needed. [facility] C[facility] Assessment has been waived during Pandemic limitations/closures.
[2020-03-09 17:05] VITALS: BP 90/61
[2020-03-09] MEDS: ALPRAZolam 0.25 MG (XANAX) TAB PO PRN (18:18)
[2020-03-09] MEDS: rOPINIRole 1 MG (REQUIP) TABLET PO SCH (20:24)
[2020-03-09] MEDS: LIDOCAINE PATCH REMOVAL TP SCH (20:29)
[2020-03-09 20:38] VITALS: BP 91/48
[2020-03-10] MEDS: KCL 10 MEQ TAB (MICRO K) PO SCH ×2 (06:00→18:11)
[2020-03-10] MEDS: oxyCODONE ER 10 MG (OxyCONTIN CR) TAB PO SCH ×2 (06:00→18:11)
[2020-03-10] MEDS: CATHETER FLUSH 10 ML SYR IV SCH ×3 (06:00→22:37)
[2020-03-10] MEDS: BACLOFEN 10 MG (LIORESAL) TAB PO PRN ×2 (06:02→12:50)
[2020-03-10 06:13] VITALS: BP 91/58
[2020-03-10] MEDS: SENNA W/DOCUSATE (SENOKOT S) TABLET PO SCH ×2 (08:05→21:31)
[2020-03-10] MEDS: LACTOBACILLUS ACIDOPHILUS (PROBIOTIC) CAPSULE PO SCH ×3 (09:25→18:11)
[2020-03-10] MEDS: VENlafaxine 75 MG (EFFEXOR) TAB PO SCH ×4 (09:25→21:24)
[2020-03-10] MEDS: toPIRamate 25 MG (TOPAMAX) TAB PO SCH (09:26)
[2020-03-10] MEDS: GABAPENTIN 300 MG (NEURONTIN) CAP PO SCH ×3 (09:26→21:25)
[2020-03-10] MEDS: PANTOPRAZOLE 40 MG (PROTONIX) TAB PO SCH (09:26)
[2020-03-10] MEDS: FUROSEMIDE 40 MG (LASIX) TAB PO SCH (09:26)
[2020-03-10] MEDS: meTOprolol TARTRATE 25 MG (LOPRESSOR) TABLET PO SCH ×2 (09:26→21:25)
[2020-03-10] MEDS: ENOXAPARIN 40 MG/0.4 ML (LOVENOX) SYR SC SCH ×2 (09:27→21:26)
[2020-03-10] MEDS: MICONAZOLE 2% POWDER (DESENEX AF) 90 GM TOP SCH ×2 (09:28→21:46)
[2020-03-10] MEDS: MICONAZOLE NITRATE 2% CRM 30 GM TP SCH ×2 (09:28→21:46)
[2020-03-10] MEDS: LIDOCAINE 4% (SALONPAS) PATCH TOP SCH (09:28)
[2020-03-10] MEDS: SENNOSIDES 8.6 MG (SENOKOT) TAB PO SCH ×2 (09:30→21:31)
[2020-03-10] MEDS: polyethylene glycoL POWDER 17 GM (MIRALAX) PACK PO SCH ×2 (09:30→21:31)
[2020-03-10] MEDS: DOCUSATE SODIUM 100 MG (COLACE) CAP PO SCH ×2 (09:30→21:31)
[2020-03-10] MEDS: ARTIFICAL TEARS 0.4 ML UNIT DOSE (REFRESH PLUS) OU SCH ×3 (09:35→21:24)
--- NOTE | 2020-03-10 10:02 | Occupational Ther Daily Note ---
OT Current Status-Daily Note Subjective Pt laying in bed at start of session, agreeable to OT/PT cotreat. Pt reports pain during laura transfer, crying once she got to recliner. Her nurse was notified and OT attempted to reposition pt, pt reported her pain eased after repositioning and time. ADL-Treatment Therapy Code Descriptions/Definitions Functional [place] Measure: 0=Not Assessed/NA 4=Minimal Assistance 1=Total Assistance 5=Supervision or Setup 2=Maximal Assistance 6=Modified [place] 3=Moderate Assistance 7=Complete IndependenceSCALE: Activities may be completed with or without assistive devices. 6-Pbujfetpov-pjcvzha completes the activity by him/herself with no assistance from a helper. 5-Set-up or Clean-up Assistance-helper sets up or cleans up; patient completes activity. [place] assists only prior to or following the activity. 4-Supervision or Touching Assistance-helper provides verbal cues and/or touching/steadying and/or contact guard assistance as patient completes activity. Assistance may be provided throughout the activity or intermittently. 3-Partial/Moderate Assistance-helper does LESS THAN HALF the effort. [place] lifts, holds or supports trunk or limbs, but provides less than half the effort. 2-Substantial/Maximal Assistance-helper does MORE THAN HALF the effort. [place] lifts or holds trunk or limbs and provides more than half the effort. 2-Fweqqpmqn-midpgk does ALL the effort. Patient does none of the effort to complete the activity. Or, the assistance of 2 or more helpers is required for the patient to complete the activity. If activity was not attempted, code reason: 7-Patient Refused. 9-Not Applicable-not attempted and the patient did not perform the activity before the current illness, exacerbation or injury. 10-Not Attempted due to Environmental Limitations-(lack of equipment, weather restraints, etc.). 88-Not Attempted due to Medical Conditions or Safety Concerns. Oral Hygiene (QC): 5 Toileting Hygiene (QC): 1 Other Treatment OT/PT cotreat due to increased medical complexity, decreased functional ability, and paraplegia requiring the skill of 2 disciplines which a director rehabilitation program could not perform. OT focused on ADLs, UE placement, cues for safety and sequencing while PT focused on LE placement and overall gross movements. Pt reports being "gassy" this AM, asking to be checked to see if she has had a BM. Pt had a BM, requiring pt to roll side to side for clean up with assist x2. Pt rolled L & R for laura sling placement. Pt dependently transferred to recliner via laura. PT/OT cotreat ended, OT continued with tx. Pt reports increased pain after transfer and she was crying. Pt repositioned herself and OT assisted with repositioning, her elias se was notified. Nursing present to give pt meds, pt reports her pain was easing with repositioning and time. Pt able to take pills with water, she brushed her hair with set up and brushed her teeth with set up. Post OT session, pt seated in recliner, call light in reach and all needs met. Education OT Patient Education: Correct positioning, Energy conservation, Modified ADL techniques, Progress toward Goal/Update tx plan, Purpose of tx/functional activities, Transfer techniques Teaching Recipient: Patient Teaching Methods: Discussion Response to Teaching: Verbalize Understanding OT Short Term Goals Short Term Goals Time Frame: Mar 03, 2020 Toileting hygiene: 2 Shower/bathe self: 3 OT Marine Gear Keeper Goals Correction Goals Time Frame: Mar 17, 2020 Eating (QC): 6 Oral Hygiene (QC): 6 Toileting Hygiene (QC): 4 Shower/Bathe Self (QC): 4 Upper Body Dressing (QC): 5 Lower Body Dressing (QC): 3 On/Off Footwear (QC): 6 Additional Goals: 1-Demonstrate ADL Tasks, 2-Verbalize Understanding, 3-Improv eStrength/Regulo 1=Demonstrate adherence to instructed precautions during ADL tasks. 2=Patient will verbalize/demonstrate understanding of assistive devices/modifications for ADL. 3=Patient will improve strength/tolerance for activity to enable patient to p erform ADL's. OT Education/Plan Problem List/Assessment Assessment: Decreased Activ Tolerance, Decreased UE Strength, Dependent Transfers, Impaired Bed Mobility, Impaired Funct Balance, Impaired I ADL's, Impaired Self-Care Skills Discharge Recommendations Plan/Recommendations: Continue POC Treatment Plan/Plan of Care Patient would benefit from OT for education, treatment and training to promote independence in ADL's, mobility, safety and/or upper extremity function for ADL's. Plan of Care: ADL Retraining, Caregiver Training, Concurrent Therapy, Functional Mobility, Group Exercise/Act as Ind, UE Funct Exercise/Act, W/C Management Training Treatment Duration: Mar 10, 2020 Frequency: At least 5 of 7 days/Wk (IRF) Estimated Hrs Per Day: 1.5 hours per day Agreement: Yes Rehab Potential: Poor Time/GCodes Start Time: 08:15 Stop Time: 09:45 Total Time Billed (hr/min): 90 Billed Treatment Time OT/PT cotreat (60') 2292-8043 OT tx (30') [id number] 1, ADL 6 (90') WOLF EPPERSON OT Mar 10, 2020 10:02
--- NOTE | 2020-03-10 10:37 | PM&R Progress Note ---
Subjective HPI/CC On Admission Date Seen by Provider: Mar 10, 2020 Time Seen by Provider: 10:30 Subjective/Events-last exam Large BM today and it seems that she is on a QOD BM routine with laxatives Nystatin cream and powder under breasts are helpful Pain seems to be tolerated well Sugar lift dependent No new issues No new falls SW will update her on the NHP plan Checked meds and labs Conferred wtih RN Reviewed therapy notes Review of Systems Musculoskeletal: back pain Neurological: Weakness, Numbness, Incoordination Objective Exam Vital Signs Vital Signs Date Time Temp Pulse Resp B/P (MAP) Pulse Ox O2 Delivery O2 Flow Rate FiO2 03/10/20 08:10 Room Air 03/10/20 06:13 36.4 73 18 91/58 (69) 96 03/09/20 21:00 2.00 03/04/20 18:29 21 Capillary Refill : Less Than 3 SecondsLess Than 3 Seconds General Appearance: No Apparent Distress, WD/WN, Chronically ill, Obese HEENT: PERRL/EOMI, Normal ENT Inspection, Pharynx Normal Neck: Full Range of Motion, Normal Inspection, Non Tender, Supple, Carotid Bruit Respiratory: Chest Non Tender, Lungs Clear, Normal Breath Sounds, No Accessory Muscle Use, No Respiratory Distress Cardiovascular: Regular Rate, Rhythm, No Gallop, No JVD, No Murmur, Normal Peripheral Pulses Gastrointestinal: Normal Bowel Sounds, No Organomegaly, No Pulsatile Mass, Non Tender, Soft Back: Normal Inspection, No CVA Tenderness, Decreased Range of Motion Extremity: Normal Capillary Refill, Normal Inspection, Pedal Edema Neurologic/Psychiatric: Alert, Oriented x3, talent development specialist II-XII Norm as Tested, Depressed Affect, Motor Weakness Skin: Normal Color, Warm/Dry Lymphatic: No Adenopathy Results/Procedures Lab Patient resulted labs reviewed. FIM Transfers Therapy Code Descriptions/Definitions Functional [place] Measure: 0=Not Assessed/NA 4=Minimal Assistance 1=Total Assistance 5=Supervision or Setup 2=Maximal Assistance 6=Modified [place] 3=Moderate Assistance 7=Complete IndependenceSCALE: Activities may be completed with or without assistive devices. 4-Qunsaevzpn-jgpppzp completes the activity by him/herself with no assistance from a helper. 5-Set-up or Clean-up Assistance-helper sets up or cleans up; patient completes activity. [place] assists only prior to or following the activity. 4-Supervision or Touching Assistance-helper provides verbal cues and/or touching/steadying and/or contact guard assistance as patient completes activity. Assistance may be provided throughout the activity or intermittently. 3-Partial/Moderate Assistance-helper does LESS THAN HALF the effort. [place] lifts, holds or supports trunk or limbs, but provides less than half the effort. 2-Substantial/Maximal Assistance-helper does MORE THAN HALF the effort. [place] lifts or holds trunk or limbs and provides more than half the effort. 1-Zdbvgevpd-ktcfxj does ALL the effort. Patient does none of the effort to complete the activity. Or, the assistance of 2 or more helpers is required for the patient to complete the activity. If activity was not attempted, code reason: 7-Patient Refused. 9-Not Applicable-not attempted and the patient did not perform the activity before the current illness, exacerbation or injury. 10-Not Attempted due to Environmental Limitations-(lack of equipment, weather restraints, etc.). 88-Not Attempted due to Medical Conditions or Safety Concerns. Roll Left to Right (QC): 2 Sit to Lying (QC): 1 Sit to Stand (QC): 88 Chair/Xek-bd-Plehc Xfer(QC): 1 Car Transfer (QC): 88 Gait Training Does the Patient Walk?: No and Walking Goal NOT indicated Walk 10 feet (QC): 88 Walk 50 ft with 2 Turns(QC): 88 Walk 150 ft (QC): 88 Walking 10ft/uneven surface-QC: 88 Wheelchair Training Does the Pt Use a Wheelchair?: Yes Wheel 50 ft with 2 turns (QC): 5 Wheel 150 ft (QC): 5 Type of Wheelchair: Manual Stair Training 1 Step (curb) (QC): 88 4 Steps (QC): 88 12 Steps (QC): 88 Balance Picking up an Object (QC): 88 ADL-Treatment Eating (QC): 6 (Per pt report.) Oral Hygiene (QC): 5 (Pt able to brush her teeth with set up/clean up of s upplies at tray table.) Bathing Location: L Arm, R Arm, L Upper Leg, R Upper Leg, L Lower Leg (including foot), R Lower Leg (including foot), Chest, Abdomen Shower/Bathe Self (QC): 2 (Max A shower. Pt transferred to large shower chair via sugar. She was taken to the large shower room. She washed UEs, chest and abdomen, requiring assistance washing under stomach and LEs. OT educated pt on using long handled sponge in order to was LEs, but still required assistance for thoroughness due to decreased sensation/paraplegia.) Upper Body Dressing (QC): 88 (Pt donned hospital gown on this date, thus no QC score given. Based on clinical reasoning & past txs, pt would require mod assist with donning toe puller dress. She would be able to manage arms/head into gown but require assistance pulling gown down her back and to cover he sides.) Lower Body Dressing (QC): 88 (Not attempted, based on clinical reasoning/paraplegia, pt would be dependent with task.) On/Off Footwear (QC): 88 (Not attempted, based on clinical reasoning/paraplegia, pt would be dependent with task.) Toileting Hygiene (QC): 1 (Pt rolled side to side in bed in order for OT to perform toilet hygiene dependently. During rolling pt requires max A x1, or mod A x2.) Toilet Transfer (QC): 88 (not attempted due to paraplegia/safety concerns.) Assessment/Plan Assessment and Plan Assess & Plan/Chief Complaint Assessment: (1) Paraplegia at T9 level ICD Codes: G82.20 - Paraplegia, unspecified (2) Acute osteomyelitis of spine Status: Acute ICD Codes: M46.20 - Osteomyelitis of vertebra, site unspecified (3) White catheter in place ICD Codes: Z96.0 - Presence of urogenital implants (4) Neurogenic bladder ICD Codes: N31.9 - Neuromuscular dysfunction of bladder, unspecified (5) Chronic mental illness ICD Codes: F99 - Mental disorder, not otherwise specified (6) Depression ICD Codes: F32.9 - Major depressive disorder, single episode, unspecified (7) H/O gastric bypass ICD Codes: Z98.84 - Bariatric surgery status (8) Fecal incontinence ICD Codes: R15.9 - Full incontinence of feces (9) Acute respiratory failure with hypoxia Status: Acute ICD Codes: J96.01 - Acute respiratory failure with hypoxia (10) T2DM (type 2 diabetes mellitus) Status: Chronic ICD Codes: E11.9 - Type 2 diabetes mellitus without complications (11) Paresthesia of both legs Status: Acute ICD Codes: R20.2 - Paresthesia of skin (12) RLS (restless legs syndrome) Status: Chronic ICD Codes: G25.81 - Restless legs syndrome (13) Elevated liver function tests Status: Acute ICD Codes: R94.5 - Abnormal results of liver function studies (14) HLD (hyperlipidemia) Status: Chronic ICD Codes: E78.5 - Hyperlipidemia, unspecified (15) HTN (hypertension) Status: Chronic ICD Codes: I10 - Essential (primary) hypertension (16) Morbid obesity Status: Chronic ICD Codes: E66.01 - Morbid (severe) obesity due to excess calories (17) Shortness of breath Status: Acute ICD Codes: R06.02 - Shortness of breath (18) Hypoxia Status: Acute ICD Codes: R09.02 - Hypoxemia GERD Plan: IRF Wheelchair mobility with bariatric wheelchair Increase ADL's in order to decrease burden to caregivers Psych evaluation appreciated likely will need close f/u at DC BM regimen to maintain to prevent narcotic bowel and she seems to be on QOD routine Neurogenic bladder will likely need SP cath in the future but keep in-dwelling for now Pain control PPI with TUMS Levaquin for osteomyelitis of spine IV form maintained until end of March PICC line managed by PICC line nurses Steroids completed which has helped her sugars tremendously Changed Lasix to PO form and that seems to be working well Long acting narcotic maintained along with break through pain med Accucheck only in am daily Lidocaine patch with K-pad (1) Paraplegia at T9 level (2) Acute osteomyelitis of spine Status: Acute (3) White catheter in place (4) Neurogenic bladder (5) Chronic mental illness (6) Depression (7) H/O gastric bypass (8) Fecal incontinence (9) Acute respiratory failure with hypoxia Status: Acute (10) T2DM (type 2 diabetes mellitus) Status: Chronic (11) Paresthesia of both legs Status: Acute (12) RLS (restless legs syndrome) Status: Chronic (13) Elevated liver function tests Status: Acute (14) HLD (hyperlipidemia) Status: Chronic (15) HTN (hypertension) Status: Chronic (16) Morbid obesity Status: Chronic (17) Shortness of breath Status: Acute (18) Hypoxia Status: Acute KATELYN JENSEN DO Mar 10, 2020 10:37
[2020-03-10] MEDS: ZONISAMIDE 100 MG CAP (ZONEGRAN) NON-FORMULARY PO SCH ×2 (10:46→21:24)
--- NOTE | 2020-03-10 11:18 | Physical Therapy Daily Note ---
PT Daily Note-Current Subjective Pt agreeable. BM in bed upon arrival. Reports back pain but not rated. Mental Status Patient Orientation: Person, Place, Time, Situation Attachments: SCD's, White Catheter Transfers SCALE: Activities may be completed with or without assistive devices. 0-Hwtodhfqob-wgegamy completes the activity by him/herself with no assistance from a helper. 5-Set-up or Clean-up Assistance-helper sets up or cleans up; patient completes activity. [place] assists only prior to or following the activity. 4-Supervision or Touching Assistance-helper provides verbal cues and/or touching/steadying and/or contact guard assistance as patient completes activity. Assistance may be provided throughout the activity or intermittently. 3-Partial/Moderate Assistance-helper does LESS THAN HALF the effort. [place] lifts, holds or supports trunk or limbs, but provides less than half the effort. 2-Substantial/Maximal Assistance-helper does MORE THAN HALF the effort. [place] lifts or holds trunk or limbs and provides more than half the effort. 6-Jashxcgoy-gxghry does ALL the effort. Patient does none of the effort to complete the activity. Or, the assistance of 2 or more helpers is required for the patient to complete the activity. If activity was not attempted, code reason: 7-Patient Refused. 9-Not Applicable-not attempted and the patient did not perform the activity before the current illness, exacerbation or injury. 10-Not Attempted due to Environmental Limitations-(lack of equipment, weather restraints, etc.). 88-Not Attempted due to Medical Conditions or Safety Concerns. Roll Left & Right (QC): 2 Lying to Sitting/Side of Bed(Q: 1 Chair/Nsu-ol-Owgzm Xfer(QC): 1 Rolling (L) and (R) with max A x 1-2 multiple times for dependent jonny-care. Dependent laura transfer to recliner. Treatments Bed mobility for dependent jonny-care. Dependent laura transfer to recliner. Up in recliner with OT present post treatment. Assessment Current Status: Poor Progress Pt remains dependent for all mobility, self-care. OT/PT cotreat due to increased medical complexity, decreased functional ability, and paraplegia requiring the skill of 2 disciplines which a director rehabilitation program could not perform. OT focused on ADLs, UE placement, cues for safety and sequencing while PT focused on LE placement and overall gross movements. PT Short Term Goals Short Term Goals Time Frame: Mar 03, 2020 Roll Left & Right: 2 PT Halfway Goals Academic Success Coordinator Goals PT Academic Success Coordinator Goals Time Frame: Mar 17, 2020 Roll Left & Right (QC): 2 Sit to Lying (QC): 88 Lying-Sitting on Side/Bed(QC): 88 Sit to Stand (QC): 88 Chair/Cbb-pu-Ecydi Xfer(QC): 88 Toilet Transfer (QC): 88 Car Transfer (QC): 88 Does the Patient Walk: No and Walking Goal NOT indicated Walk 10 feet (QC): 88 Walk 50ft with 2 Turns (QC): 88 Walk 150 ft (QC): 88 Walking 10ft on Uneven Surface: 88 1 Step (curb) (QC): 88 4 Steps (QC): 88 12 Steps (QC): 88 Picking up an Object (QC): 88 Wheel 50 feet with 2 turns (QC: 4 Type: Motorized Wheel 150 feet: 4 Type: Motorized PT Plan Problem List Problem List: Activity Tolerance, Functional Strength, Safety, Balance, Gait, Transfer, Bed Mobility, ROM Treatment/Plan Treatment Plan: Continue Plan of Care Treatment Plan: Bed Mobility, Education, Functional Activity Regulo, Functional Strength, Group Therapy, Safety, Therapeutic Exercise, Transfers Treatment Duration: Mar 17, 2020 Frequency: At least 5 of 7 days/Wk (IRF) Estimated Hrs Per Day: 1.5 hours per day Patient and/or Family Agrees t: Yes Time/GCodes Time In: 0815 Time Out: 914 Total Billed Treatment Time: 60 Total Billed Treatment 1, FA x 60' RENETTA DOMINGUEZ DPT Mar 10, 2020 11:18
--- NOTE | 2020-03-10 13:44 | NUR ---
CM/SS CONCURRENT DOCUMENTATION Referral completed with [facility] as planned, anticipate acceptance next week. Transport will need to be coordinated with SNF or EMS, whatever is safest for patient. This care plan was patient's decision and team is in agreement. Patient was to update her family re same. Await confirmation from [facility], followup next week.
--- NOTE | 2020-03-10 14:29 | Physical Therapy Daily Note ---
PT Daily Note-Current Subjective Pt up in chair, ready to return to bed. c/o upper back pain but not rated. Mental Status Patient Orientation: Person, Place, Time, Situation Transfers SCALE: Activities may be completed with or without assistive devices. 8-Ahovmeepla-wzmdtbm completes the activity by him/herself with no assistance from a helper. 5-Set-up or Clean-up Assistance-helper sets up or cleans up; patient completes activity. [place] assists only prior to or following the activity. 4-Supervision or Touching Assistance-helper provides verbal cues and/or touching/steadying and/or contact guard assistance as patient completes activity. Assistance may be provided throughout the activity or intermittently. 3-Partial/Moderate Assistance-helper does LESS THAN HALF the effort. [place] lifts, holds or supports trunk or limbs, but provides less than half the effort. 2-Substantial/Maximal Assistance-helper does MORE THAN HALF the effort. [place] lifts or holds trunk or limbs and provides more than half the effort. 5-Qeynhxwvq-puwpmc does ALL the effort. Patient does none of the effort to complete the activity. Or, the assistance of 2 or more helpers is required for the patient to complete the activity. If activity was not attempted, code reason: 7-Patient Refused. 9-Not Applicable-not attempted and the patient did not perform the activity before the current illness, exacerbation or injury. 10-Not Attempted due to Environmental Limitations-(lack of equipment, weather restraints, etc.). 88-Not Attempted due to Medical Conditions or Safety Concerns. Roll Left & Right (QC): 1 Sit to Lying (QC): 1 Chair/Fcm-ze-Skzpj Xfer(QC): 1 Max A x 2 for rolling, dependent on Sugar lift for chair->bed TFR. Treatments Transfer to bed, rolling multiple times for positioning, jonny-care. Heels floated, needs met in bed post session. Assessment Current Status: Poor Progress Pt remains dependent for functional mobility. PT Short Term Goals Short Term Goals Time Frame: Mar 03, 2020 Roll Left & Right: 2 PT Fci Goals Fci Goals PT Soda Worker Goals Time Frame: Mar 17, 2020 Roll Left & Right (QC): 2 Sit to Lying (QC): 88 Lying-Sitting on Side/Bed(QC): 88 Sit to Stand (QC): 88 Chair/Quw-id-Earpv Xfer(QC): 88 Toilet Transfer (QC): 88 Car Transfer (QC): 88 Does the Patient Walk: No and Walking Goal NOT indicated Walk 10 feet (QC): 88 Walk 50ft with 2 Turns (QC): 88 Walk 150 ft (QC): 88 Walking 10ft on Uneven Surface: 88 1 Step (curb) (QC): 88 4 Steps (QC): 88 12 Steps (QC): 88 Picking up an Object (QC): 88 Wheel 50 feet with 2 turns (QC: 4 Type: Motorized Wheel 150 feet: 4 Type: Motorized PT Plan Problem List Problem List: Activity Tolerance, Functional Strength, Safety, Balance, Gait, Transfer, Bed Mobility, ROM Treatment/Plan Treatment Plan: Continue Plan of Care Treatment Plan: Bed Mobility, Education, Functional Activity Regulo, Functional Strength, Group Therapy, Safety, Therapeutic Exercise, Transfers Treatment Duration: Mar 17, 2020 Frequency: At least 5 of 7 days/Wk (IRF) Estimated Hrs Per Day: 1.5 hours per day Patient and/or Family Agrees t: Yes Time/GCodes Time In: 1343 Time Out: 1413 Total Billed Treatment Time: 30 Total Billed Treatment 1, FA x 30' RENETTA DOMINGUEZ DPOzzie Mar 10, 2020 14:29
[2020-03-10] MEDS: LEVOFLOXACIN 750 MG/150 ML IV 150 ML IV SCH (15:43)
[2020-03-10 16:00] VITALS: BP 89/55
--- NOTE | 2020-03-10 19:06 | NUR ---
bedside report received from SAMIRA SANTOS, assume care of pt
[2020-03-10 21:18] VITALS: BP 95/62
--- NOTE | 2020-03-10 21:24 | NUR ---
pt refused Colace, miralax Senokot & Senokot 8.9mg, states had really big stool this morning, oxyir 10mg given for back pain pain level 7/10 on numeric scale.
[2020-03-10] MEDS: rOPINIRole 1 MG (REQUIP) TABLET PO SCH (21:25)
[2020-03-10] MEDS: ALPRAZolam 0.25 MG (XANAX) TAB PO PRN (21:25)
[2020-03-10] MEDS: LIDOCAINE PATCH REMOVAL TP SCH (21:50)
--- NOTE | 2020-03-10 22:16 | NUR ---
resting quietly in bed, pain level 0/10 on CNPI SCALE.
--- NOTE | 2020-03-11 03:33 | NUR ---
pt c/o back pain level 7/10 on numeric scale, oxyir 5mg given
--- NOTE | 2020-03-11 04:03 | NUR ---
resting quietly in bed, pain level 0/10 on CNPI SCALE
[2020-03-11] MEDS: oxyCODONE ER 10 MG (OxyCONTIN CR) TAB PO SCH ×2 (06:35→18:00)
[2020-03-11] MEDS: KCL 10 MEQ TAB (MICRO K) PO SCH ×2 (06:35→18:00)
--- NOTE | 2020-03-11 06:35 | NUR ---
scheduled OxyContin 10mg given, pain level 7/10 on numeric scale
[2020-03-11 06:39] VITALS: BP 88/51
[2020-03-11] MEDS: CATHETER FLUSH 10 ML SYR IV SCH ×3 (06:39→21:11)
--- NOTE | 2020-03-11 08:17 | Occupational Ther Daily Note ---
OT Current Status-Daily Note Subjective Pt in bed, agrees to therapy. States pain is "not too bad," but doesn't rate. ADL-Treatment Therapy Code Descriptions/Definitions Functional [place] Measure: 0=Not Assessed/NA 4=Minimal Assistance 1=Total Assistance 5=Supervision or Setup 2=Maximal Assistance 6=Modified [place] 3=Moderate Assistance 7=Complete IndependenceSCALE: Activities may be completed with or without assistive devices. 0-Btocljpybt-elpidif completes the activity by him/herself with no assistance from a helper. 5-Set-up or Clean-up Assistance-helper sets up or cleans up; patient completes activity. [place] assists only prior to or following the activity. 4-Supervision or Touching Assistance-helper provides verbal cues and/or touching/steadying and/or contact guard assistance as patient completes activity. Assistance may be provided throughout the activity or intermittently. 3-Partial/Moderate Assistance-helper does LESS THAN HALF the effort. [place] lifts, holds or supports trunk or limbs, but provides less than half the effort. 2-Substantial/Maximal Assistance-helper does MORE THAN HALF the effort. [place] lifts or holds trunk or limbs and provides more than half the effort. 8-Wvobezsyl-xbpsnu does ALL the effort. Patient does none of the effort to complete the activity. Or, the assistance of 2 or more helpers is required for the patient to complete the activity. If activity was not attempted, code reason: 7-Patient Refused. 9-Not Applicable-not attempted and the patient did not perform the activity before the current illness, exacerbation or injury. 10-Not Attempted due to Environmental Limitations-(lack of equipment, weather restraints, etc.). 88-Not Attempted due to Medical Conditions or Safety Concerns. Oral Hygiene (QC): 5 (Pt completed oral care, washed face, and combed hair with set up.) Other Treatment Pt performed bilateral UE activity to increase strength and activity tolerance needed for functional tasks. Pt performed four exercises x10 reps with dowel armen. Rest breaks between exercises. Bilateral hand hi ranger operator exercises x20 reps with resistance therapy foam. Pt resting in bed with needs met after session. OT Short Term Goals Short Term Goals Time Frame: Mar 03, 2020 Toileting hygiene: 2 Shower/bathe self: 3 OT Mcfp Goals In Home Nanny Goals Time Frame: Mar 17, 2020 Eating (QC): 6 Oral Hygiene (QC): 6 Toileting Hygiene (QC): 4 Shower/Bathe Self (QC): 4 Upper Body Dressing (QC): 5 Lower Body Dressing (QC): 3 On/Off Footwear (QC): 6 Additional Goals: 1-Demonstrate ADL Tasks, 2-Verbalize Understanding, 3- ImproveStrength/Regulo 1=Demonstrate adherence to instructed precautions during ADL tasks. 2=Patient will verbalize/demonstrate understanding of assistive devices/modifications for ADL. 3=Patient will improve strength/tolerance for activity to enable patient to perform ADL's. OT Education/Plan Discharge Recommendations Plan/Recommendations: Continue POC Treatment Plan/Plan of Care Patient would benefit from OT for education, treatment and training to promote independence in ADL's, mobility, safety and/or upper extremity function for ADL's. Plan of Care: ADL Retraining, Caregiver Training, Concurrent Therapy, Functional Mobility, Group Exercise/Act as Ind, UE Funct Exercise/Act, W/C Management Training Treatment Duration: Mar 10, 2020 Frequency: At least 5 of 7 days/Wk (IRF) Estimated Hrs Per Day: 1.5 hours per day Agreement: Yes Rehab Potential: Poor Time/GCodes Start Time: 07:20 Stop Time: 07:40 Total Time Billed (hr/min): 20 Billed Treatment Time 1 visit, EX(20minutes) YANIRA YADAV OT Mar 11, 2020 08:17
[2020-03-11] MEDS: polyethylene glycoL POWDER 17 GM (MIRALAX) PACK PO SCH ×2 (08:49→21:08)
[2020-03-11] MEDS: DOCUSATE SODIUM 100 MG (COLACE) CAP PO SCH ×2 (08:49→21:06)
[2020-03-11] MEDS: SENNA W/DOCUSATE (SENOKOT S) TABLET PO SCH ×2 (08:50→21:08)
[2020-03-11] MEDS: SENNOSIDES 8.6 MG (SENOKOT) TAB PO SCH ×2 (08:50→21:09)
[2020-03-11] MEDS: PANTOPRAZOLE 40 MG (PROTONIX) TAB PO SCH (10:16)
[2020-03-11] MEDS: LACTOBACILLUS ACIDOPHILUS (PROBIOTIC) CAPSULE PO SCH ×3 (10:16→18:00)
[2020-03-11] MEDS: GABAPENTIN 300 MG (NEURONTIN) CAP PO SCH ×3 (10:17→20:35)
[2020-03-11] MEDS: VENlafaxine 75 MG (EFFEXOR) TAB PO SCH ×4 (10:17→20:37)
[2020-03-11] MEDS: toPIRamate 25 MG (TOPAMAX) TAB PO SCH (10:17)
[2020-03-11] MEDS: ZONISAMIDE 100 MG CAP (ZONEGRAN) NON-FORMULARY PO SCH ×2 (10:17→20:37)
[2020-03-11] MEDS: ENOXAPARIN 40 MG/0.4 ML (LOVENOX) SYR SC SCH ×2 (10:18→20:37)
[2020-03-11] MEDS: MICONAZOLE NITRATE 2% CRM 30 GM TP SCH ×2 (10:19→20:39)
[2020-03-11] MEDS: MICONAZOLE 2% POWDER (DESENEX AF) 90 GM TOP SCH ×2 (10:19→20:39)
[2020-03-11] MEDS: LIDOCAINE 4% (SALONPAS) PATCH TOP SCH (10:19)
[2020-03-11] MEDS: meTOprolol TARTRATE 25 MG (LOPRESSOR) TABLET PO SCH ×2 (10:22→21:06)
[2020-03-11] MEDS: FUROSEMIDE 40 MG (LASIX) TAB PO SCH (10:22)
[2020-03-11] MEDS: ARTIFICAL TEARS 0.4 ML UNIT DOSE (REFRESH PLUS) OU SCH ×3 (10:22→20:35)
[2020-03-11] MEDS: BACLOFEN 10 MG (LIORESAL) TAB PO PRN (10:25)
--- NOTE | 2020-03-11 10:37 | Physical Therapy Daily Note ---
PT Daily Note-Current Subjective Agrees to get up to the chair. Transfers SCALE: Activities may be completed with or without assistive devices. 9-Lhboxubcmt-ucgauvv completes the activity by him/herself with no assistance from a helper. 5-Set-up or Clean-up Assistance-helper sets up or cleans up; patient completes a ctivity. [place] assists only prior to or following the activity. 4-Supervision or Touching Assistance-helper provides verbal cues and/or touching/steadying and/or contact guard assistance as patient completes activity. Assistance may be provided throughout the activity or intermittently. 3-Partial/Moderate Assistance-helper does LESS THAN HALF the effort. [place] lifts, holds or supports trunk or limbs, but provides less than half the effort. 2-Substantial/Maximal Assistance-helper does MORE THAN HALF the effort. [place] lifts or holds trunk or limbs and provides more than half the effort. 1-Zvakpzynw-gwxpni does ALL the effort. Patient does none of the effort to complete the activity. Or, the assistance of 2 or more helpers is required for the patient to complete the activity. If activity was not attempted, code reason: 7-Patient Refused. 9-Not Applicable-not attempted and the patient did not perform the activity before the current illness, exacerbation or injury. 10-Not Attempted due to Environmental Limitations-(lack of equipment, weather restraints, etc.). 88-Not Attempted due to Medical Conditions or Safety Concerns. Treatments Pt able to participate with rolling side to side and rolls with max assist of 1, pt uses UE to pull her trunk over. Placed laura sling. Pt was transferred via laura to [facility] with assist of rn rehab and nurse to complete transfer. Pt positioned in chair comfortably with heels elevated and needs met. Nursing aware she is up and to assist her back to bed when ready. Assessment Pt is cooperative and able to participate. PT Short Term Goals Short Term Goals Time Frame: Mar 03, 2020 Roll Left & Right: 2 PT Cloth [place] Goals Mcfp Goals PT Cloth [place] Goals Time Frame: Mar 17, 2020 Roll Left & Right (QC): 2 Sit to Lying (QC): 88 Lying-Sitting on Side/Bed(QC): 88 Sit to Stand (QC): 88 Chair/Dqe-ta-Ceizh Xfer(QC): 88 Toilet Transfer (QC): 88 Car Transfer (QC): 88 Does the Patient Walk: No and Walking Goal NOT indicated Walk 10 feet (QC): 88 Walk 50ft with 2 Turns (QC): 88 Walk 150 ft (QC): 88 Walking 10ft on Uneven Surface: 88 1 Step (curb) (QC): 88 4 Steps (QC): 88 12 Steps (QC): 88 Picking up an Object (QC): 88 Wheel 50 feet with 2 turns (QC: 4 Type: Motorized Wheel 150 feet: 4 Type: Motorized PT Plan Problem List Problem List: Activity Tolerance, Functional Strength, Safety, Transfer, Bed Mobility Treatment/Plan Treatment Plan: Continue Plan of Care Treatment Plan: Bed Mobility, Education, Functional Activity Regulo, Functional Strength, Group Therapy, Safety, Therapeutic Exercise, Transfers Treatment Duration: Mar 17, 2020 Frequency: At least 5 of 7 days/Wk (IRF) Estimated Hrs Per Day: 1.5 hours per day Patient and/or Family Agrees t: Yes Safety Risks/Education Patient Education: Safety Issues Teaching Recipient: Patient Teaching Methods: Discussion Response to Teaching: Reinforcement Needed Time/GCodes Time In: 1000 Time Out: 1023 Total Billed Treatment Time: 23 Total Billed Treatment visit FA 23 BECKY HALL PT Mar 11, 2020 10:37
--- NOTE | 2020-03-11 14:42 | PM&R Progress Note ---
Subjective HPI/CC On Admission Date Seen by Provider: Mar 11, 2020 Time Seen by Provider: 12:00 Subjective/Events-last exam Large BM yesterday with use of laxatives Nystatin cream and powder under breasts are helpful Pain seems to be tolerated well no increase in dosing or frequency needed Sugar lift dependent No new issues Doing very well getting in a chair today No new falls SW has not updated on the plan until firm plans in place with ML Adelina Joe Needs overnight study prior to DC to [place] Checked meds and labs Conferred wtih RN Reviewed therapy notes Review of Systems General: Fatigue Musculoskeletal: back pain Neurological: Weakness, Numbness, Incoordination Objective Exam Vital Signs Vital Signs Date Time Temp Pulse Resp B/P (MAP) Pulse Ox O2 Delivery O2 Flow Rate FiO2 03/11/20 08:00 Room Air 03/11/20 06:39 36.4 62 18 88/51 (63) 98 2.00 Capillary Refill : Less Than 3 SecondsLess Than 3 Seconds General Appearance: No Apparent Distress, WD/WN, Chronically ill, Obese HEENT: PERRL/EOMI, Normal ENT Inspection, Pharynx Normal Neck: Full Range of Motion, Normal Inspection, Non Tender, Supple, Carotid Bruit Respiratory: Chest Non Tender, Lungs Clear, Normal Breath Sounds, No Accessory Muscle Use, No Respiratory Distress Cardiovascular: Regular Rate, Rhythm, No Gallop, No JVD, No Murmur, Normal Per ipheral Pulses Gastrointestinal: Normal Bowel Sounds, No Organomegaly, No Pulsatile Mass, Non Tender, Soft Back: Normal Inspection, No CVA Tenderness, Decreased Range of Motion Extremity: Normal Capillary Refill, Normal Inspection, Pedal Edema Neurologic/Psychiatric: Alert, Oriented x3, logging 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 FIM Transfers Therapy Code Descriptions/Definitions Functional [place] Measure: 0=Not Assessed/NA 4=Minimal Assistance 1=Total Assistance 5=Supervision or Setup 2=Maximal Assistance 6=Modified [place] 3=Moderate Assistance 7=Complete IndependenceSCALE: Activities may be completed with or without assistive devices. 9-Pmnbslfrmn-wcgmboz completes the activity by him/herself with no assistance from a helper. 5-Set-up or Clean-up Assistance-helper sets up or cleans up; patient completes activity. [place] assists only prior to or following the activity. 4-Supervision or Touching Assistance-helper provides verbal cues and/or touching/steadying and/or contact guard assistance as patient completes activity. Assistance may be provided throughout the activity or intermittently. 3-Partial/Moderate Assistance-helper does LESS THAN HALF the effort. [place] lifts, holds or supports trunk or limbs, but provides less than half the effort. 2-Substantial/Maximal Assistance-helper does MORE THAN HALF the effort. [place] lifts or holds trunk or limbs and provides more than half the effort. 8-Otdmvydff-mdpvdz does ALL the effort. Patient does none of the effort to complete the activity. Or, the assistance of 2 or more helpers is required for the patient to complete the activity. If activity was not attempted, code reason: 7-Patient Refused. 9-Not Applicable-not attempted and the patient did not perform the activity before the current illness, exacerbation or injury. 10-Not Attempted due to Environmental Limitations-(lack of equipment, weather restraints, etc.). 88-Not Attempted due to Medical Conditions or Safety Concerns. Roll Left to Right (QC): 1 Sit to Lying (QC): 1 Sit to Stand (QC): 88 Chair/Egk-ud-Cwotg Xfer(QC): 1 Car Transfer (QC): 88 Gait Training Does the Patient Walk?: No and Walking Goal NOT indicated Walk 10 feet (QC): 88 Walk 50 ft with 2 Turns(QC): 88 Walk 150 ft (QC): 88 Walking 10ft/uneven surface-QC: 88 Wheelchair Training Does the Pt Use a Wheelchair?: Yes Wheel 50 ft with 2 turns (QC): 5 Wheel 150 ft (QC): 5 Type of Wheelchair: Manual Stair Training 1 Step (curb) (QC): 88 4 Steps (QC): 88 12 Steps (QC): 88 Balance Picking up an Object (QC): 88 ADL-Treatment Eating (QC): 6 (Per pt report.) Oral Hygiene (QC): 5 (Pt completed oral care, washed face, and combed hair with set up.) Bathing Location: L Arm, R Arm, L Upper Leg, R Upper Leg, L Lower Leg (including foot), R Lower Leg (including foot), Chest, Abdomen Shower/Bathe Self (QC): 2 (Max A shower. Pt transferred to large shower chair via sugar. She was taken to the large shower room. She washed UEs, chest and abdomen, requiring assistance washing under stomach and LEs. OT educated pt on using long handled sponge in order to was LEs, but still required assistance for thoroughness due to decreased sensation/paraplegia.) Upper Body Dressing (QC): 88 (Pt donned hospital gown on this date, thus no QC score given. Based on clinical reasoning & past txs, pt would require mod assist with donning kidney puller dress. She would be able to manage arms/head into gown but require assistance pulling gown down her back and to cover he sides.) Lower Body Dressing (QC): 88 (Not attempted, based on clinical reasoning/paraplegia, pt would be dependent with task.) On/Off Footwear (QC): 88 (Not attempted, based on clinical reasoning/paraplegia, pt would be dependent with task.) Toileting Hygiene (QC): 1 Toilet Transfer (QC): 88 (not attempted due to paraplegia/safety concerns.) Assessment/Plan Assessment and Plan Assess & Plan/Chief Complaint Assessment: (1) Paraplegia at T9 level ICD Codes: G82.20 - Paraplegia, unspecified (2) Acute osteomyelitis of spine Status: Acute ICD Codes: M46.20 - Osteomyelitis of vertebra, site unspecified (3) White catheter in place ICD Codes: Z96.0 - Presence of urogenital implants (4) Neurogenic bladder ICD Codes: N31.9 - Neuromuscular dysfunction of bladder, unspecified (5) Chronic mental illness ICD Codes: F99 - Mental disorder, not otherwise specified (6) Depression ICD Codes: F32.9 - Major depressive disorder, single episode, unspecified (7) H/O gastric bypass ICD Codes: Z98.84 - Bariatric surgery status (8) Fecal incontinence ICD Codes: R15.9 - Full incontinence of feces (9) Acute respiratory failure with hypoxia Status: Acute ICD Codes: J96.01 - Acute respiratory failure with hypoxia (10) T2DM (type 2 diabetes mellitus) Status: Chronic ICD Codes: E11.9 - Type 2 diabetes mellitus without complications (11) Paresthesia of both legs Status: Acute ICD Codes: R20.2 - Paresthesia of skin (12) RLS (restless legs syndrome) Status: Chronic ICD Codes: G25.81 - Restless legs syndrome (13) Elevated liver function tests Status: Acute ICD Codes: R94.5 - Abnormal results of liver function studies (14) HLD (hyperlipidemia) Status: Chronic ICD Codes: E78.5 - Hyperlipidemia, unspecified (15) HTN (hypertension) Status: Chronic ICD Codes: I10 - Essential (primary) hypertension (16) Morbid obesity Status: Chronic ICD Codes: E66.01 - Morbid (severe) obesity due to excess calories (17) Shortness of breath Status: Acute ICD Codes: R06.02 - Shortness of breath (18) Hypoxia Status: Acute ICD Codes: R09.02 - Hypoxemia GERD Plan: IRF Wheelchair mobility with bariatric wheelchair Increase ADL's in order to decrease burden to caregivers Psych evaluation appreciated likely will need close f/u at DC BM regimen to maintain to prevent narcotic bowel and she seems to be on QOD routine Neurogenic bladder will likely need SP cath in the future but keep in-dwelling for now Pain control PPI with TUMS Levaquin for osteomyelitis of spine IV form maintained until end of March PICC line managed by PICC line nurses Steroids completed which has helped her sugars tremendously Changed Lasix to PO form and that seems to be working well Long acting narcotic maintained along with break through pain med Accucheck only in am daily Lidocaine patch with K-pad (1) Paraplegia at T9 level (2) Acute osteomyelitis of spine Status: Acute (3) White catheter in place (4) Neurogenic bladder (5) Chronic mental illness (6) Depression (7) H/O gastric bypass (8) Fecal incontinence (9) Acute respiratory failure with hypoxia Status: Acute (10) T2DM (type 2 diabetes mellitus) Status: Chronic (11) Paresthesia of both legs Status: Acute (12) RLS (restless legs syndrome) Status: Chronic (13) Elevated liver function tests Status: Acute (14) HLD (hyperlipidemia) Status: Chronic (15) HTN (hypertension) Status: Chronic (16) Morbid obesity Status: Chronic (17) Shortness of breath Status: Acute (18) Hypoxia Status: Acute KATELYN JENSEN DO Mar 11, 2020 14:42
[2020-03-11 16:06] VITALS: BP 111/75
[2020-03-11] MEDS: LEVOFLOXACIN 750 MG/150 ML IV 150 ML IV SCH (16:28)
[2020-03-11] MEDS: rOPINIRole 1 MG (REQUIP) TABLET PO SCH (20:35)
[2020-03-11] MEDS: MELATONIN 3 MG TABLET PO PRN (20:35)
[2020-03-11] MEDS: LIDOCAINE PATCH REMOVAL TP SCH (21:10)
[2020-03-12 05:17] VITALS: BP 114/67
[2020-03-12] MEDS: CATHETER FLUSH 10 ML SYR IV SCH ×3 (06:01→21:08)
[2020-03-12] MEDS: KCL 10 MEQ TAB (MICRO K) PO SCH ×2 (06:02→16:43)
[2020-03-12] MEDS: oxyCODONE ER 10 MG (OxyCONTIN CR) TAB PO SCH ×2 (06:02→18:30)
[2020-03-12] MEDS: ARTIFICAL TEARS 0.4 ML UNIT DOSE (REFRESH PLUS) OU SCH ×3 (09:00→21:05)
[2020-03-12] MEDS: ENOXAPARIN 40 MG/0.4 ML (LOVENOX) SYR SC SCH ×2 (09:00→20:44)
[2020-03-12] MEDS: LACTOBACILLUS ACIDOPHILUS (PROBIOTIC) CAPSULE PO SCH ×3 (09:00→18:31)
[2020-03-12] MEDS: ZONISAMIDE 100 MG CAP (ZONEGRAN) NON-FORMULARY PO SCH ×2 (09:01→20:44)
[2020-03-12] MEDS: FUROSEMIDE 40 MG (LASIX) TAB PO SCH (09:01)
[2020-03-12] MEDS: SENNA W/DOCUSATE (SENOKOT S) TABLET PO SCH ×2 (09:01→21:06)
[2020-03-12] MEDS: PANTOPRAZOLE 40 MG (PROTONIX) TAB PO SCH (09:03)
[2020-03-12] MEDS: DOCUSATE SODIUM 100 MG (COLACE) CAP PO SCH ×2 (09:03→20:45)
[2020-03-12] MEDS: SENNOSIDES 8.6 MG (SENOKOT) TAB PO SCH ×2 (09:03→20:45)
[2020-03-12] MEDS: toPIRamate 25 MG (TOPAMAX) TAB PO SCH (09:03)
[2020-03-12] MEDS: GABAPENTIN 300 MG (NEURONTIN) CAP PO SCH ×3 (09:03→20:44)
[2020-03-12] MEDS: VENlafaxine 75 MG (EFFEXOR) TAB PO SCH ×4 (09:03→20:44)
[2020-03-12] MEDS: LIDOCAINE 4% (SALONPAS) PATCH TOP SCH (09:05)
[2020-03-12] MEDS: meTOprolol TARTRATE 25 MG (LOPRESSOR) TABLET PO SCH ×2 (09:06→20:35)
[2020-03-12] MEDS: MICONAZOLE 2% POWDER (DESENEX AF) 90 GM TOP SCH ×2 (09:06→20:51)
[2020-03-12] MEDS: polyethylene glycoL POWDER 17 GM (MIRALAX) PACK PO SCH ×2 (09:06→21:05)
[2020-03-12] MEDS: MICONAZOLE NITRATE 2% CRM 30 GM TP SCH ×2 (09:06→21:06)
--- NOTE | 2020-03-12 12:45 | NUR ---
pt c/o back pain, voices 7 "with spasms" on 1-10 scale. 5mg oxy IR given po with baclofen, at pt request. will con't to monitor.
[2020-03-12] MEDS: BACLOFEN 10 MG (LIORESAL) TAB PO PRN (12:50)
--- NOTE | 2020-03-12 12:56 | PM&R Progress Note ---
Subjective HPI/CC On Admission Date Seen by Provider: Mar 12, 2020 Time Seen by Provider: 13:00 Subjective/Events-last exam Large BM today Nystatin cream and powder under breasts seems to be helping Pain seems to be tolerated well Sugar lift dependent requiring NHP No new issues Not real motivated to do much of anything today per patient No new falls SW has not updated on the plan until firm plans in place with ML Adelina Diaz Needs overnight study prior to DC to [place] Checked meds and labs Conferred wtih RN Reviewed therapy notes Review of Systems General: Fatigue Musculoskeletal: back pain Neurological: Weakness, Numbness, Incoordination Objective Exam Vital Signs Vital Signs Date Time Temp Pulse Resp B/P (MAP) Pulse Ox O2 Delivery O2 Flow Rate FiO2 03/12/20 17:01 36.8 86 16 92/61 (71) 96 Room Air 03/11/20 06:39 2.00 Capillary Refill : Less Than 3 SecondsLess Than 3 Seconds General Appearance: No Apparent Distress, WD/WN, Chronically ill, Obese HEENT: PERRL/EOMI, Normal ENT Inspection, Pharynx Normal Neck: Full Range of Motion, Normal Inspection, Non Tender, Supple, Carotid Bruit Respiratory: Chest Non Tender, Lungs Clear, Normal Breath Sounds, No Accessory Muscle Use, No Respiratory Distress Cardiovascular: Regular Rate, Rhythm, No Gallop, No JVD, No Murmur, Normal Peripheral Pulses Gastrointestinal: Normal Bowel Sounds, No Organomegaly, No Pulsatile Mass, Non Tender, Soft Back: Normal Inspection, No CVA Tenderness, Decreased Range of Motion Extremity: Normal Capillary Refill, Normal Inspection, Pedal Edema Neurologic/Psychiatric: Alert, Oriented x3, boiling house hand II-XII Norm as Tested, Depresse d Affect, Motor Weakness Skin: Normal Color, Warm/Dry Lymphatic: No Adenopathy Results/Procedures Lab Patient resulted labs reviewed. FIM Transfers Therapy Code Descriptions/Definitions Functional [place] Measure: 0=Not Assessed/NA 4=Minimal Assistance 1=Total Assistance 5=Supervision or Setup 2=Maximal Assistance 6=Modified [place] 3=Moderate Assistance 7=Complete IndependenceSCALE: Activities may be completed with or without assistive devices. 7-Tdscvcvywu-nboqphb completes the activity by him/herself with no assistance from a helper. 5-Set-up or Clean-up Assistance-helper sets up or cleans up; patient completes activity. [place] assists only prior to or following the activity. 4-Supervision or Touching Assistance-helper provides verbal cues and/or touching/steadying and/or contact guard assistance as patient completes activity. Assistance may be provided throughout the activity or intermittently. 3-Partial/Moderate Assistance-helper does LESS THAN HALF the effort. [place] lifts, holds or supports trunk or limbs, but provides less than half the effort. 2-Substantial/Maximal Assistance-helper does MORE THAN HALF the effort. [place] lifts or holds trunk or limbs and provides more than half the effort. 9-Uezicttec-fpafqc does ALL the effort. Patient does none of the effort to complete the activity. Or, the assistance of 2 or more helpers is required for the patient to complete the activity. If activity was not attempted, code reason: 7-Patient Refused. 9-Not Applicable-not attempted and the patient did not perform the activity before the current illness, exacerbation or injury. 10-Not Attempted due to Environmental Limitations-(lack of equipment, weather restraints, etc.). 88-Not Attempted due to Medical Conditions or Safety Concerns. Roll Left to Right (QC): 1 Sit to Lying (QC): 1 Sit to Stand (QC): 88 Chair/Gnt-qk-Ccpdy Xfer(QC): 1 Car Transfer (QC): 88 Gait Training Does the Patient Walk?: No and Walking Goal NOT indicated Walk 10 feet (QC): 88 Walk 50 ft with 2 Turns(QC): 88 Walk 150 ft (QC): 88 Walking 10ft/uneven surface-QC: 88 Wheelchair Training Does the Pt Use a Wheelchair?: Yes Wheel 50 ft with 2 turns (QC): 5 Wheel 150 ft (QC): 5 Type of Wheelchair: Manual Stair Training 1 Step (curb) (QC): 88 4 Steps (QC): 88 12 Steps (QC): 88 Balance Picking up an Object (QC): 88 ADL-Treatment Eating (QC): 6 (Per pt report.) Oral Hygiene (QC): 5 (Pt completed oral care, washed face, and combed hair with set up.) Bathing Location: L Arm, R Arm, L Upper Leg, R Upper Leg, L Lower Leg (including foot), R Lower Leg (including foot), Chest, Abdomen Shower/Bathe Self (QC): 2 (Max A shower. Pt transferred to large shower chair via sugar. She was taken to the large shower room. She washed UEs, chest and abdomen, requiring assistance washing under stomach and LEs. OT educated pt on using long handled sponge in order to was LEs, but still required assistance for thoroughness due to decreased sensation/paraplegia.) Upper Body Dressing (QC): 88 (Pt donned hospital gown on this date, thus no QC score given. Based on clinical reasoning & past txs, pt would require mod assist with donning wire puller dress. She would be able to manage arms/head into gown but require assistance pulling gown down her back and to cover he sides.) Lower Body Dressing (QC): 88 (Not attempted, based on clinical reasoning/paraplegia, pt would be dependent with task.) On/Off Footwear (QC): 88 (Not attempted, based on clinical reasoning/paraplegia, pt would be dependent with task.) Toileting Hygiene (QC): 1 Toilet Transfer (QC): 88 (not attempted due to paraplegia/safety concerns.) Assessment/Plan Assessment and Plan Assess & Plan/Chief Complaint Assessment: (1) Paraplegia at T9 level ICD Codes: G82.20 - Paraplegia, unspecified (2) Acute osteomyelitis of spine Status: Acute ICD Codes: M46.20 - Osteomyelitis of vertebra, site unspecified (3) White catheter in place ICD Codes: Z96.0 - Presence of urogenital implants (4) Neurogenic bladder ICD Codes: N31.9 - Neuromuscular dysfunction of bladder, unspecified (5) Chronic mental illness ICD Codes: F99 - Mental disorder, not otherwise specified (6) Depression ICD Codes: F32.9 - Major depressive disorder, single episode, unspecified (7) H/O gastric bypass ICD Codes: Z98.84 - Bariatric surgery status (8) Fecal incontinence ICD Codes: R15.9 - Full incontinence of feces (9) Acute respiratory failure with hypoxia Status: Acute ICD Codes: J96.01 - Acute respiratory failure with hypoxia (10) T2DM (type 2 diabetes mellitus) Status: Chronic ICD Codes: E11.9 - Type 2 diabetes mellitus without complications (11) Paresthesia of both legs Status: Acute ICD Codes: R20.2 - Paresthesia of skin (12) RLS (restless legs syndrome) Status: Chronic ICD Codes: G25.81 - Restless legs syndrome (13) Elevated liver function tests Status: Acute ICD Codes: R94.5 - Abnormal results of liver function studies (14) HLD (hyperlipidemia) Status: Chronic ICD Codes: E78.5 - Hyperlipidemia, unspecified (15) HTN (hypertension) Status: Chronic ICD Codes: I10 - Essential (primary) hypertension (16) Morbid obesity Status: Chronic ICD Codes: E66.01 - Morbid (severe) obesity due to excess calories (17) Shortness of breath Status: Acute ICD Codes: R06.02 - Shortness of breath (18) Hypoxia Status: Acute ICD Codes: R09.02 - Hypoxemia GERD Plan: IRF Wheelchair mobility with bariatric wheelchair Increase ADL's in order to decrease burden to caregivers at halfway Psych evaluation appreciated likely will need close f/u at DC BM regimen to maintain to prevent narcotic bowel and she seems to be on QOD routine Neurogenic bladder will likely need SP cath in the future but keep in-dwelling for now Pain control PPI with TUMS Levaquin for osteomyelitis of spine IV form maintained until end of March PICC line managed by PICC line nurses Steroids completed which has helped her sugars tremendously Changed Lasix to PO form and that seems to be working well Long acting narcotic maintained along with break through pain med Accucheck only in am daily Lidocaine patch with K-pad (1) Paraplegia at T9 level (2) Acute osteomyelitis of spine Status: Acute (3) White catheter in place (4) Neurogenic bladder (5) Chronic mental illness (6) Depression (7) H/O gastric bypass (8) Fecal incontinence (9) Acute respiratory failure with hypoxia Status: Acute (10) T2DM (type 2 diabetes mellitus) Status: Chronic (11) Paresthesia of both legs Status: Acute (12) RLS (restless legs syndrome) Status: Chronic (13) Elevated liver function tests Status: Acute (14) HLD (hyperlipidemia) Status: Chronic (15) HTN (hypertension) Status: Chronic (16) Morbid obesity Status: Chronic (17) Shortness of breath Status: Acute (18) Hypoxia Status: Acute KATELYN JENSEN DO Mar 12, 2020 12:56
[2020-03-12] MEDS: LEVOFLOXACIN 750 MG/150 ML IV 150 ML IV SCH (15:39)
[2020-03-12 17:01] VITALS: BP 92/61
[2020-03-12] MEDS: rOPINIRole 1 MG (REQUIP) TABLET PO SCH (20:44)
[2020-03-12] MEDS: LIDOCAINE PATCH REMOVAL TP SCH (21:06)
[2020-03-13 03:57] LABS: BASOPHILS % (AUTO) 0 % (0-10); EOSINOPHILS # (AUTO) 0.2 10^3/uL (0.0-0.3); EOSINOPHILS % (AUTO) 4 % (0-10); HEMATOCRIT 35 % (35-52); HEMOGLOBIN 10.9 G/DL (11.5-16.0); LYMPHOCYTES # (AUTO) 1.3 X 10^3 (1.0-4.0); LYMPHOCYTES % (AUTO) 31 % (12-44); MEAN CORPUSCULAR HEMOGLOBIN 29 PG (25-34); MEAN CORPUSCULAR HGB CONC 31 G/DL (32-36); MEAN CORPUSCULAR VOLUME 94 FL (80-99); MEAN PLATELET VOLUME 9.6 FL (7.4-10.4); MONOCYTES # (AUTO) 0.4 X 10^3 (0.0-1.0); MONOCYTES % (AUTO) 9 % (0-12); NEUTROPHILS # (AUTO) 2.4 X 10^3 (1.8-7.8); NEUTROPHILS % (AUTO) 56 % (42-75); PLATELET COUNT 128 10^3/uL (130-400); RED CELL DISTRIBUTION WIDTH 17.6 % (10.0-14.5); WHITE BLOOD COUNT 4.3 10^3/uL (4.3-11.0)
[2020-03-13 04:06] LABS: ALBUMIN 2.4 GM/DL (3.2-4.5); CHLORIDE 103 MMOL/L (98-107); POTASSIUM 3.7 MMOL/L (3.6-5.0); SODIUM 137 MMOL/L (135-145)
[2020-03-13 04:08] LABS: GLUCOSE 106 MG/DL (70-105)
[2020-03-13 04:09] LABS: CARBON DIOXIDE 26 MMOL/L (21-32)
[2020-03-13 04:10] LABS: BILIRUBIN,TOTAL 0.4 MG/DL (0.1-1.0)
[2020-03-13 04:12] LABS: ALKALINE PHOSPHATASE 109 U/L (40-136); CREATININE SERUM 0.59 MG/DL (0.60-1.30); GFR ESTIMATED > 60
[2020-03-13 04:13] LABS: BUN/CREATININE RATIO 22
[2020-03-13 04:15] LABS: ALANINE AMINOTRANSFERASE 30 U/L (0-55)
[2020-03-13 05:35] VITALS: BP 99/66
[2020-03-13] MEDS: CATHETER FLUSH 10 ML SYR IV SCH ×3 (06:02→20:55)
[2020-03-13] MEDS: KCL 10 MEQ TAB (MICRO K) PO SCH ×2 (06:03→18:02)
[2020-03-13] MEDS: oxyCODONE ER 10 MG (OxyCONTIN CR) TAB PO SCH ×2 (06:03→18:02)
[2020-03-13] MEDS: polyethylene glycoL POWDER 17 GM (MIRALAX) PACK PO SCH ×2 (08:10→20:57)
[2020-03-13] MEDS: BACLOFEN 10 MG (LIORESAL) TAB PO PRN (08:42)
[2020-03-13] MEDS: VENlafaxine 75 MG (EFFEXOR) TAB PO SCH ×4 (08:42→20:56)
[2020-03-13] MEDS: toPIRamate 25 MG (TOPAMAX) TAB PO SCH (08:42)
[2020-03-13] MEDS: meTOprolol TARTRATE 25 MG (LOPRESSOR) TABLET PO SCH ×2 (08:42→20:00)
[2020-03-13] MEDS: PANTOPRAZOLE 40 MG (PROTONIX) TAB PO SCH (08:43)
[2020-03-13] MEDS: LACTOBACILLUS ACIDOPHILUS (PROBIOTIC) CAPSULE PO SCH ×3 (08:43→18:02)
[2020-03-13] MEDS: ZONISAMIDE 100 MG CAP (ZONEGRAN) NON-FORMULARY PO SCH ×2 (08:43→20:56)
[2020-03-13] MEDS: FUROSEMIDE 40 MG (LASIX) TAB PO SCH (08:44)
[2020-03-13] MEDS: SENNOSIDES 8.6 MG (SENOKOT) TAB PO SCH ×2 (08:45→20:57)
[2020-03-13] MEDS: SENNA W/DOCUSATE (SENOKOT S) TABLET PO SCH ×2 (08:45→20:57)
[2020-03-13] MEDS: DOCUSATE SODIUM 100 MG (COLACE) CAP PO SCH ×2 (08:46→20:57)
[2020-03-13] MEDS: ENOXAPARIN 40 MG/0.4 ML (LOVENOX) SYR SC SCH ×2 (08:46→20:56)
[2020-03-13] MEDS: GABAPENTIN 300 MG (NEURONTIN) CAP PO SCH ×3 (08:46→20:56)
[2020-03-13] MEDS: LIDOCAINE 4% (SALONPAS) PATCH TOP SCH (08:47)
[2020-03-13] MEDS: MICONAZOLE 2% POWDER (DESENEX AF) 90 GM TOP SCH ×2 (08:47→20:55)
[2020-03-13] MEDS: MICONAZOLE NITRATE 2% CRM 30 GM TP SCH ×2 (08:47→21:00)
[2020-03-13] MEDS: ARTIFICAL TEARS 0.4 ML UNIT DOSE (REFRESH PLUS) OU SCH ×3 (08:55→20:56)
--- NOTE | 2020-03-13 09:23 | Physical Therapy Daily Note ---
PT Daily Note-Current Subjective Pt laying in bed, agreeable to OT/PT cotreat. Pt reports pain during laura transfers, but does not rate pain when asked. Pain Pain Description: Ache, Burning Comment: RN gave pt muscle relaxer during tx Mental Status Patient Orientation: Person, Place, Time, Situation Attachments: White Catheter Transfers SCALE: Activities may be completed with or without assistive devices. 2-Iibtptnmvh-saspdcq completes the activity by him/herself with no assistance from a helper. 5-Set-up or Clean-up Assistance-helper sets up or cleans up; patient completes activity. [place] assists only prior to or following the activity. 4-Supervision or Touching Assistance-helper provides verbal cues and/or touching/steadying and/or contact guard assistance as patient completes activity. Assistance may be provided throughout the activity or intermittently. 3-Partial/Moderate Assistance-helper does LESS THAN HALF the effort. [place] lifts, holds or supports trunk or limbs, but provides less than half the effort. 2-Substantial/Maximal Assistance-helper does MORE THAN HALF the effort. [place] lifts or holds trunk or limbs and provides more than half the effort. 5-Zwoabvors-luqodq does ALL the effort. Patient does none of the effort to complete the activity. Or, the assistance of 2 or more helpers is required for the patient to complete the activity. If activity was not attempted, code reason: 7-Patient Refused. 9-Not Applicable-not attempted and the patient did not perform the activity before the current illness, exacerbation or injury. 10-Not Attempted due to Environmental Limitations-(lack of equipment, weather restraints, etc.). 88-Not Attempted due to Medical Conditions or Safety Concerns. Roll Left & Right (QC): 2 (MaxA x2) Chair/Zax-gs-Aywqp Xfer(QC): 1 (transfers via laura lift) Wheelchair Training Does the Pt Use a Wheelchair?: Yes Wheel 50 ft with 2 turns (QC): 4 (pt requires assistance w/ turns and guiding through doorways) Type of Wheelchair: Manual Treatments OT/PT cotreat due to increased medical complexity, decreased functional ability, and paraplegia requiring the skill of 2 disciplines which a certified rehabilitation counselor could not perform. OT focused on ADLs, UE placement, cues for safety and sequencing while PT focused on LE placement and overall gross movements. Pt laying in bed at start of session, agreeable to OT/PT cotreat. Pt washed under her breasts with set up of washcloth. Pt then rolled side to side for laura sling placement. Pt transferred to w/c, sitting upright approx 10 mins as nurse gave her meds. Pt reports pain when transferred to w/c, but it eased as she sat in chair. Pt then performed w/c mobility around therapy area, requiring assistance through doors and with turns. Pt returned to her room, transferring to recliner via laura. End OT/PT cotreat. Pt in recliner continuing OT treatment at end of PT treatment. PT will return in the afternoon to finish PT tx. Assessment Current Status: Fair Progress Pt participates in therapy tx, but requires extra time d/t pain. PT Short Term Goals Short Term Goals Time Frame: Mar 03, 2020 Roll Left & Right: 2 PT Retirement Goals Retirement Goals PT Maintainability Engineer Goals Time Frame: Mar 17, 2020 Roll Left & Right (QC): 2 Sit to Lying (QC): 88 Lying-Sitting on Side/Bed(QC): 88 Sit to Stand (QC): 88 Chair/Sat-as-[place] Xfer(QC): 88 Toilet Transfer (QC): 88 Car Transfer (QC): 88 Does the Patient Walk: No and Walking Goal NOT indicated Walk 10 feet (QC): 88 Walk 50ft with 2 Turns (QC): 88 Walk 150 ft (QC): 88 Walking 10ft on Uneven Surface: 88 1 Step (curb) (QC): 88 4 Steps (QC): 88 12 Steps (QC): 88 Picking up an Object (QC): 88 Wheel 50 feet with 2 turns (QC: 4 Type: Motorized Wheel 150 feet: 4 Type: Motorized PT Plan Problem List Problem List: Activity Tolerance, Functional Strength, Safety, Bed Mobility Treatment/Plan Treatment Plan: Continue Plan of Care Treatment Plan: Bed Mobility, Education, Functional Activity Regulo, Functional Strength, Group Therapy, Safety, Therapeutic Exercise, Transfers Treatment Duration: Mar 17, 2020 Frequency: At least 5 of 7 days/Wk (IRF) Estimated Hrs Per Day: 1.5 hours per day Patient and/or Family Agrees t: Yes Safety Risks/Education Patient Education: W/C Management, Safety Issues Teaching Recipient: Patient Teaching Methods: Discussion Response to Teaching: Verbalize Understanding Time/GCodes Time In: 814 Time Out: 914 Total Billed Treatment Time: 60 Total Billed Treatment [id number] OT/PT cotreat 1, FA x3 (50), EX x1 (10') KAVITHA LYLES DAM ATTENDANT Mar 13, 2020 09:23
--- NOTE | 2020-03-13 09:37 | Occupational Ther Daily Note ---
OT Current Status-Daily Note Subjective Pt laying in bed, agreeable to OT/PT cotreat. Pt reports pain during laura transfers, but does not rate pain when asked. Mental Status/Objective Attachments: White Catheter ADL-Treatment Therapy Code Descriptions/Definitions Functional [place] Measure: 0=Not Assessed/NA 4=Minimal Assistance 1=Total Assistance 5=Supervision or Setup 2=Maximal Assistance 6=Modified [place] 3=Moderate Assistance 7=Complete IndependenceSCALE: Activities may be completed with or without assistive devices. 0-Ioyrgjzzbn-rwesqkr completes the activity by him/herself with no assistance from a helper. 5-Set-up or Clean-up Assistance-helper sets up or cleans up; patient completes activity. [place] assists only prior to or following the activity. 4-Supervision or Touching Assistance-helper provides verbal cues and/or touching/steadying and/or contact guard assistance as patient completes activity. Assistance may be provided throughout the activity or intermittently. 3-Partial/Moderate Assistance-helper does LESS THAN HALF the effort. [place] lifts, holds or supports trunk or limbs, but provides less than half the effort. 2-Substantial/Maximal Assistance-helper does MORE THAN HALF the effort. [place] lifts or holds trunk or limbs and provides more than half the effort. 3-Pwevplpfg-ldirwd does ALL the effort. Patient does none of the effort to complete the activity. Or, the assistance of 2 or more helpers is required for the patient to complete the activity. If activity was not attempted, code reason: 7-Patient Refused. 9-Not Applicable-not attempted and the patient did not perform the activity before the current illness, exacerbation or injury. 10-Not Attempted due to Environmental Limitations-(lack of equipment, weather restraints, etc.). 88-Not Attempted due to Medical Conditions or Safety Concerns. Oral Hygiene (QC): 5 (oral hygiene) Other Treatment OT/PT cotreat due to increased medical complexity, decreased functional ability, and paraplegia requiring the skill of 2 disciplines which a rehabilitation nurse could not perform. OT focused on ADLs, UE placement, cues for safety and sequencing while PT focused on LE placement and overall gross movements. Pt laying in bed at start of session, agreeable to OT/PT cotreat. Pt washed under her breasts with set up of washcloth. Pt then rolled side to side for laura sling placement. Pt transferred to /c, sitting upright approx 10 mins as nurse gave her meds. Pt reports pain when transferred to w/c, but it eased as she sat in chair. Pt then performed w/c mobility around therapy area, requiring assistance through doors and with turns. Pt returned to her room, transferring to recliner via laura. End OT/PT cotreat. Pt brushed her hair and brushed her teeth with set up at recliner level. She then performed x10 reps BUE systems software manager squeezes with green systems software manager sponge. Post OT session, pt seated in recliner, call light in reach and all need met. Education OT Patient Education: Correct positioning, Energy conservation, Exercise program, Modified ADL techniques, Progress toward Goal/Update tx plan, Purpose of tx/functional activities, Transfer techniques, W/C management Teaching Recipient: Patient Teaching Methods: Discussion Response to Teaching: Verbalize Understanding OT Short Term Goals Short Term Goals Time Frame: Mar 03, 2020 Toileting hygiene: 2 Shower/bathe self: 3 OT Fpc Goals Fpc Goals Time Frame: Mar 17, 2020 Eating (QC): 6 Oral Hygiene (QC): 6 Toileting Hygiene (QC): 4 Shower/Bathe Self (QC): 4 Upper Body Dressing (QC): 5 Lower Body Dressing (QC): 3 On/Off Footwear (QC): 6 Additional Goals: 1-Demonstrate ADL Tasks, 2-Verbalize Understanding, 3- ImproveStrength/Regulo 1=Demonstrate adherence to instructed precautions during ADL tasks. 2=Patient will verbalize/demonstrate understanding of assistive devices /modifications for ADL. 3=Patient will improve strength/tolerance for activity to enable patient to perform ADL's. OT Education/Plan Problem List/Assessment Assessment: Decreased Activ Tolerance, Decreased UE Strength, Dependent Transfers, Impaired Bed Mobility, Impaired Funct Balance, Impaired I ADL's, Impaired Self-Care Skills Discharge Recommendations Plan/Recommendations: Continue POC Treatment Plan/Plan of Care Patient would benefit from OT for education, treatment and training to promote independence in ADL's, mobility, safety and/or upper extremity function for ADL's. Plan of Care: ADL Retraining, Caregiver Training, Concurrent Therapy, Functional Mobility, Group Exercise/Act as Ind, UE Funct Exercise/Act, W/C Management Training Treatment Duration: Mar 10, 2020 Frequency: At least 5 of 7 days/Wk (IRF) Estimated Hrs Per Day: 1.5 hours per day Agreement: Yes Rehab Potential: Poor Time/GCodes Start Time: 08:15 Stop Time: 09:45 Total Time Billed (hr/min): 90 Billed Treatment Time OT/PT cotreat OT tx. 1, ADL 3 (45'), FA 2 (35'), EX (10') WOLF EPPERSON OT Mar 13, 2020 09:37
--- NOTE | 2020-03-13 10:29 | PM&R Progress Note ---
Subjective HPI/CC On Admission Date Seen by Provider: Mar 13, 2020 Time Seen by Provider: 10:30 Subjective/Events-last exam Large BM yesterday Nystatin cream and powder under breasts seems to be helping Pain seems to be tolerated well Sugar lift dependent requiring NHP and that will take place Friday No new issues Moving around in w/c pretty well No new falls Pain controlled Needs overnight study prior to DC to NH and will order that to be done tonight Will change catheter today since it is close to 4 weeks since it was placed Checked meds and labs Conferred wtih RN Reviewed therapy notes Review of Systems General: Fatigue Pulmonary: Dyspnea Musculoskeletal: back pain Neurological: Weakness, Numbness, Incoordination Objective Exam Vital Signs Vital Signs Date Time Temp Pulse Resp B/P (MAP) Pulse Ox O2 Delivery O2 Flow Rate FiO2 03/13/20 08:00 Room Air 03/13/20 05:35 36.2 83 15 99/66 (77) 95 2.00 Capillary Refill : Less Than 3 SecondsLess Than 3 Seconds General Appearance: No Apparent Distress, WD/WN, Chronically ill, Obese HEENT: PERRL/EOMI, Normal ENT Inspection, Pharynx Normal Neck: Full Range of Motion, Normal Inspection, Non Tender, Supple, Carotid Bruit Respiratory: Chest Non Tender, Lungs Clear, Normal Breath Sounds, No Accessory Muscle Use, No Respiratory Distress Cardiovascular: Regular Rate, Rhythm, No Gallop, No JVD, No Murmur, Normal Peripheral Pulses Gastrointestinal: Normal Bowel Sounds, No Organomegaly, No Pulsatile Mass, Non Tender, Soft Back: Normal Inspection, No CVA Tenderness, Decreased Range of Motion Extremity: Normal Capillary Refill, Normal Inspection, Pedal Edema Neurologic/Psychiatric: Alert, Oriented x3, bank runner II-XII Norm as Tested, Depressed Affect, Motor Weakness Skin: Normal Color, Warm/Dry Lymphatic: No Adenopathy Results/Procedures Lab Laboratory Tests 03/13/20 03:40 Patient resulted labs reviewed. FIM Transfers Therapy Code Descriptions/Definitions Functional [place] Measure: 0=Not Assessed/NA 4=Minimal Assistance 1=Total Assistance 5=Supervision or Setup 2=Maximal Assistance 6=Modified [place] 3=Moderate Assistance 7=Complete IndependenceSCALE: Activities may be completed with or without assistive devices. 7-Nnucttjcab-adsuspa completes the activity by him/herself with no assistance from a helper. 5-Set-up or Clean-up Assistance-helper sets up or cleans up; patient completes activity. [place] assists only prior to or following the activity. 4-Supervision or Touching Assistance-helper provides verbal cues and/or touching/steadying and/or contact guard assistance as patient completes activity. Assistance may be provided throughout the activity or intermittently. 3-Partial/Moderate Assistance-helper does LESS THAN HALF the effort. [place] lifts, holds or supports trunk or limbs, but provides less than half the effort. 2-Substantial/Maximal Assistance-helper does MORE THAN HALF the effort. [place] lifts or holds trunk or limbs and provides more than half the effort. 1-Eyvxblbkf-iiaaji does ALL the effort. Patient does none of the effort to complete the activity. Or, the assistance of 2 or more helpers is required for the patient to complete the activity. If activity was not attempted, code reason: 7-Patient Refused. 9-Not Applicable-not attempted and the patient did not perform the activity before the current illness, exacerbation or injury. 10-Not Attempted due to Environmental Limitations-(lack of equipment, weather restraints, etc.). 88-Not Attempted due to Medical Conditions or Safety Concerns. Roll Left to Right (QC): 2 (MaxA x2) Sit to Lying (QC): 1 Sit to Stand (QC): 88 Chair/Iqd-vh-Dfbcc Xfer(QC): 1 (transfers via sugar lift) Car Transfer (QC): 88 Gait Training Does the Patient Walk?: No and Walking Goal NOT indicated Walk 10 feet (QC): 88 Walk 50 ft with 2 Turns(QC): 88 Walk 150 ft (QC): 88 Walking 10ft/uneven surface-QC: 88 Wheelchair Training Does the Pt Use a Wheelchair?: Yes Wheel 50 ft with 2 turns (QC): 5 Wheel 150 ft (QC): 5 Type of Wheelchair: Manual Stair Training 1 Step (curb) (QC): 88 4 Steps (QC): 88 12 Steps (QC): 88 Balance Picking up an Object (QC): 88 ADL-Treatment Eating (QC): 6 (Per pt report.) Oral Hygiene (QC): 5 (oral hygiene) Bathing Location: L Arm, R Arm, L Upper Leg, R Upper Leg, L Lower Leg (including foot), R Lower Leg (including foot), Chest, Abdomen Shower/Bathe Self (QC): 2 (Max A shower. Pt transferred to large shower chair via sugar. She was taken to the large shower room. She washed UEs, chest and abdomen, requiring assistance washing under stomach and LEs. OT educated pt on using long handled sponge in order to was LEs, but still required assistance for thoroughness due to decreased sensation/paraplegia.) Upper Body Dressing (QC): 88 (Pt donned hospital gown on this date, thus no QC score given. Based on clinical reasoning & past txs, pt would require mod assist with donning candy puller dress. She would be able to manage arms/head into gown but require assistance pulling gown down her back and to cover he sides.) Lower Body Dressing (QC): 88 (Not attempted, based on clinical reasoning/paraplegia, pt would be dependent with task.) On/Off Footwear (QC): 88 (Not attempted, based on clinical reasoning/paraplegia, pt would be dependent with task.) Toileting Hygiene (QC): 1 Toilet Transfer (QC): 88 (not attempted due to paraplegia/safety concerns.) Assessment/Plan Assessment and Plan Assess & Plan/Chief Complaint Assessment: (1) Paraplegia at T9 level ICD Codes: G82.20 - Paraplegia, unspecified (2) Acute osteomyelitis of spine Status: Acute ICD Codes: M46.20 - Osteomyelitis of vertebra, site unspecified (3) White catheter in place ICD Codes: Z96.0 - Presence of urogenital implants (4) Neurogenic bladder ICD Codes: N31.9 - Neuromuscular dysfunction of bladder, unspecified (5) Chronic mental illness ICD Codes: F99 - Mental disorder, not otherwise specified (6) Depression ICD Codes: F32.9 - Major depressive disorder, single episode, unspecified (7) H/O gastric bypass ICD Codes: Z98.84 - Bariatric surgery status (8) Fecal incontinence ICD Codes: R15.9 - Full incontinence of feces (9) Acute respiratory failure with hypoxia Status: Acute ICD Codes: J96.01 - Acute respiratory failure with hypoxia (10) T2DM (type 2 diabetes mellitus) Status: Chronic ICD Codes: E11.9 - Type 2 diabetes mellitus without complications (11) Paresthesia of both legs Status: Acute ICD Codes: R20.2 - Paresthesia of skin (12) RLS (restless legs syndrome) Status: Chronic ICD Codes: G25.81 - Restless legs syndrome (13) Elevated liver function tests Status: Acute ICD Codes: R94.5 - Abnormal results of liver function studies (14) HLD (hyperlipidemia) Status: Chronic ICD Codes: E78.5 - Hyperlipidemia, unspecified (15) HTN (hypertension) Status: Chronic ICD Codes: I10 - Essential (primary) hypertension (16) Morbid obesity Status: Chronic ICD Codes: E66.01 - Morbid (severe) obesity due to excess calories (17) Shortness of breath Status: Acute ICD Codes: R06.02 - Shortness of breath (18) Hypoxia Status: Acute ICD Codes: R09.02 - Hypoxemia GERD Plan: IRF Wheelchair mobility with bariatric wheelchair Increase ADL's in order to decrease burden to caregivers at long term Psych evaluation appreciated likely will need close f/u at DC BM regimen to maintain to prevent narcotic bowel and she seems to be on QOD routine Neurogenic bladder will likely need SP cath in the future but keep in-dwelling for now Pain control PPI with TUMS Levaquin for osteomyelitis of spine IV form but transition to PO form to be maintained until end of March PICC line managed by PICC line nurses and will be DC Wed prior to DC Steroids completed last week Changed Lasix to PO form and that seems to be working well Long acting narcotic maintained along with break through pain med Accucheck only in am daily Lidocaine patch with K-pad seems to be helping DC NH Wed Overnight home O2 study tonight (1) Paraplegia at T9 level (2) Acute osteomyelitis of spine Status: Acute (3) White catheter in place (4) Neurogenic bladder (5) Chronic mental illness (6) Depression (7) H/O gastric bypass (8) Fecal incontinence (9) Acute respiratory failure with hypoxia Status: Acute (10) T2DM (type 2 diabetes mellitus) Status: Chronic (11) Paresthesia of both legs Status: Acute (12) RLS (restless legs syndrome) Status: Chronic (13) Elevated liver function tests Status: Acute (14) HLD (hyperlipidemia) Status: Chronic (15) HTN (hypertension) Status: Chronic (16) Morbid obesity Status: Chronic (17) Shortness of breath Status: Acute (18) Hypoxia Status: Acute KATELYN JENSEN DO Mar 13, 2020 10:29
--- NOTE | 2020-03-13 13:36 | Physical Therapy Daily Note ---
PT Daily Note-Current Subjective Pt in recliner, just finished lunch, upon arrival. Pt agrees to therapy tx. Pt not ready to lay back down in bed. Pain Numeric Pain Scale: 3 Location: Medial Location Body Site: Back Pain Description: Ache Comment: Pt asked for pain medication at end of therapy tx. RN notified. Mental Status Patient Orientation: Person, Place, Time, Situation Attachments: White Catheter Transfers SCALE: Activities may be completed with or without assistive devices. 4-Rrcqdifcvk-gbscdzc completes the activity by him/herself with no assistance from a helper. 5-Set-up or Clean-up Assistance-helper sets up or cleans up; patient completes activity. [place] assists only prior to or following the activity. 4-Supervision or Touching Assistance-helper provides verbal cues and/or touching/steadying and/or contact guard assistance as patient completes activit y. Assistance may be provided throughout the activity or intermittently. 3-Partial/Moderate Assistance-helper does LESS THAN HALF the effort. [place] lifts, holds or supports trunk or limbs, but provides less than half the effort. 2-Substantial/Maximal Assistance-helper does MORE THAN HALF the effort. [place] lifts or holds trunk or limbs and provides more than half the effort. 3-Twqevgzxd-knkdpo does ALL the effort. Patient does none of the effort to complete the activity. Or, the assistance of 2 or more helpers is required for the patient to complete the activity. If activity was not attempted, code reason: 7-Patient Refused. 9-Not Applicable-not attempted and the patient did not perform the activity before the current illness, exacerbation or injury. 10-Not Attempted due to Environmental Limitations-(lack of equipment, weather restraints, etc.). 88-Not Attempted due to Medical Conditions or Safety Concerns. Exercises Supine Ex: Ankle pumps (AROM), Heel Slides (PROM), Short Arc Quads (PROM), Hip abd/add (PROM) Supine Reps: 15 Seated Therapy Exercises: Long arc quads (PROM), Hip flexion (PROM) Pt focused on activating core muscles, while seated in recliner w/ LE's down, u sing recliner arm rests to assist w/ bringing upper body forward; 15 reps x 2 sets. Treatments Supine ex in recliner (feet elevated). Pt used blue leg outpatient pharmacy manager and completed ankle pumps. The rest of the supine ex, pt used blue leg outpatient pharmacy manager and attempted to assist. Pt remains in recliner w/ feet elevated, bedside table and call light w/ in reach and all needs met at end of tx. Assessment Current Status: Fair Progress Pt motivated to complete therapy tx this afternoon. Pt not ready to lay back down, requests to stay up in recliner longer. PT Short Term Goals Short Term Goals Time Frame: Mar 03, 2020 Roll Left & Right: 2 PT Film Reproducer Goals Chcf Goals PT Chcf Goals Time Frame: Mar 17, 2020 Roll Left & Right (QC): 2 Sit to Lying (QC): 88 Lying-Sitting on Side/Bed(QC): 88 Sit to Stand (QC): 88 Chair/Fat-sd-Rosvg Xfer(QC): 88 Toilet Transfer (QC): 88 Car Transfer (QC): 88 Does the Patient Walk: No and Walking Goal NOT indicated Walk 10 feet (QC): 88 Walk 50ft with 2 Turns (QC): 88 Walk 150 ft (QC): 88 Walking 10ft on Uneven Surface: 88 1 Step (curb) (QC): 88 4 Steps (QC): 88 12 Steps (QC): 88 Picking up an Object (QC): 88 Wheel 50 feet with 2 turns (QC: 4 Type: Motorized Wheel 150 feet: 4 Type: Motorized PT Plan Problem List Problem List: Activity Tolerance, Functional Strength, Safety, ROM Treatment/Plan Treatment Plan: Continue Plan of Care Treatment Plan: Bed Mobility, Education, Functional Activity Regulo, Functional Strength, Group Therapy, Safety, Therapeutic Exercise, Transfers Treatment Duration: Mar 17, 2020 Frequency: At least 5 of 7 days/Wk (IRF) Estimated Hrs Per Day: 1.5 hours per day Patient and/or Family Agrees t: Yes Safety Risks/Education Patient Education: Correct Positioning, Safety Issues Teaching Recipient: Patient Teaching Methods: Discussion Response to Teaching: Verbalize Understanding Time/GCodes Time In: 1300 Time Out: 1330 Total Billed Treatment Time: 30 Total Billed Treatment 1, EX x2 (30m) KAVITHA LYLES HOIST CYLINDER LOADER Mar 13, 2020 13:36
--- NOTE | 2020-03-13 13:43 | NUR ---
"RD ASSESSMENT PMHx: HTN; DM; HLD; obesity; GERD; paraplegic PT INTERACTION: Pt was awake and pleasant during nutrition follow-up. Pt states she has been eating alright since last assessment, as well as tolerating nutrition supplementation. Note avg PO intake 53% x4d, per chart review. Pt states no issues with n/v/c/d since last assessment. Note last BM was 03/13, and pt currently on bowel regimen of Colace BID; Senna BID; and Miralax BID, per chart review. ABNORMAL NUTRITION-RELATED LAB VALUES LOW: cr 0.59; Ca 8.0; Pro 6.0; alb 2.4 HIGH: glu 106 Est. kcal needs: 1105-8003 kcal | 25-30 kcal/kg IBW, based on IBW of 61.4 kg (135#) Est. Pro needs: 49-61 g Pro | 0.8-1.0 g Pro/kg IBW, based on IBW of 61.4 kg (135#) PES STATEMENT: Inadequate oral intake (NI-2.1) related to loss of appetite as evidenced by pt interview | avg PO intake 53% x4d INTERVENTION: Continue with current diet order of CHO 75g/m 0snack diet. Continue with current supplementation order of Glucerna with meals TID. Provides 220 kcal and 10 g Pro per serving. Will continue to follow and reassess as pt needs, intake, and status change. MONITOR/EVALUATE: PO Intake; Plan of Care; Hydration Status; Weight Status; Lab Values Miladys Kaufman, MS, RD, LD"
--- NOTE | 2020-03-13 14:29 | NUR ---
CM/SS CONCURRENT DOCUMENTATION Met with patient to update that [facility] confirmed her acceptance. Continuing planning for transport, patient weight is 347#, wheelchair van option to be explored. At patient request, called her niece Steffany Leggett to update. Patient competent to make decisions and participate in/direct her next steps. She had told racebook writer she would call her family to inform of care plan, but family questions remained. Emphasized the primary issue which is caregivers x2 for care activities with patient. Steffany agreed that there are no family members capable to provide care who can do so in pairs, work and life schedules do not permit. Also updated Steffany that patient wants to complete an advanced directive, racebook writer has initiated request with Pastoral Care. Patient has identified her agents to be as follows: Serafin Ely Jr. Nephew and who patient resides with [phone] and Steffany Leggett, Niece [phone] Continue to plan for discharge Friday to [facility] skilled services. Patient and family goal remains to attempt to get patient back home if adequate care can be provided there.
[2020-03-13] MEDS: LEVOFLOXACIN 750 MG/150 ML IV 150 ML IV SCH (15:40)
[2020-03-13 16:10] VITALS: BP 90/63
[2020-03-13] MEDS: rOPINIRole 1 MG (REQUIP) TABLET PO SCH (20:57)
[2020-03-13] MEDS: LIDOCAINE PATCH REMOVAL TP SCH (21:01)
[2020-03-14 06:00] VITALS: BP 92/61
[2020-03-14] MEDS: CATHETER FLUSH 10 ML SYR IV SCH ×3 (06:31→22:14)
[2020-03-14] MEDS: oxyCODONE ER 10 MG (OxyCONTIN CR) TAB PO SCH ×2 (06:32→17:02)
[2020-03-14] MEDS: KCL 10 MEQ TAB (MICRO K) PO SCH ×2 (06:36→17:02)
[2020-03-14 08:09] VITALS: BP 106/73
[2020-03-14] MEDS: VENlafaxine 75 MG (EFFEXOR) TAB PO SCH ×4 (08:36→20:36)
[2020-03-14] MEDS: FUROSEMIDE 40 MG (LASIX) TAB PO SCH (08:36)
[2020-03-14] MEDS: GABAPENTIN 300 MG (NEURONTIN) CAP PO SCH ×3 (08:36→20:36)
[2020-03-14] MEDS: toPIRamate 25 MG (TOPAMAX) TAB PO SCH (08:37)
[2020-03-14] MEDS: ARTIFICAL TEARS 0.4 ML UNIT DOSE (REFRESH PLUS) OU SCH ×3 (08:37→20:36)
[2020-03-14] MEDS: ZONISAMIDE 100 MG CAP (ZONEGRAN) NON-FORMULARY PO SCH ×2 (08:37→20:36)
[2020-03-14] MEDS: PANTOPRAZOLE 40 MG (PROTONIX) TAB PO SCH (08:37)
[2020-03-14] MEDS: BACLOFEN 10 MG (LIORESAL) TAB PO PRN (08:37)
[2020-03-14] MEDS: LACTOBACILLUS ACIDOPHILUS (PROBIOTIC) CAPSULE PO SCH ×3 (08:42→17:03)
[2020-03-14] MEDS: ENOXAPARIN 40 MG/0.4 ML (LOVENOX) SYR SC SCH (08:43)
[2020-03-14] MEDS: MICONAZOLE 2% POWDER (DESENEX AF) 90 GM TOP SCH (08:44)
[2020-03-14] MEDS: LIDOCAINE 4% (SALONPAS) PATCH TOP SCH (08:44)
[2020-03-14] MEDS: MICONAZOLE NITRATE 2% CRM 30 GM TP SCH (08:45)
[2020-03-14] MEDS: SENNA W/DOCUSATE (SENOKOT S) TABLET PO SCH ×2 (08:45→20:56)
[2020-03-14] MEDS: polyethylene glycoL POWDER 17 GM (MIRALAX) PACK PO SCH ×2 (08:45→20:56)
[2020-03-14] MEDS: SENNOSIDES 8.6 MG (SENOKOT) TAB PO SCH ×2 (08:45→20:56)
[2020-03-14] MEDS: DOCUSATE SODIUM 100 MG (COLACE) CAP PO SCH ×2 (08:46→20:56)
[2020-03-14] MEDS: meTOprolol TARTRATE 25 MG (LOPRESSOR) TABLET PO SCH (08:46)
--- NOTE | 2020-03-14 10:00 | NUR ---
Completed A.Raulito. with pt
--- NOTE | 2020-03-14 10:17 | Occupational Ther Daily Note ---
OT Current Status-Daily Note Subjective Pt seated upright in recliner at start of session, agreeable to OT tx. Mental Status/Objective Patient Orientation: Normal For Age Attachments: White Catheter ADL-Treatment Therapy Code Descriptions/Definitions Functional [place] Measure: 0=Not Assessed/NA 4=Minimal Assistance 1=Total Assistance 5=Supervision or Setup 2=Maximal Assistance 6=Modified [place] 3=Moderate Assistance 7=Complete IndependenceSCALE: Activities may be completed with or without assistive devices. 1-Ymeeishyaw-nsrhtcw completes the activity by him/herself with no assistance from a helper. 5-Set-up or Clean-up Assistance-helper sets up or cleans up; patient completes activity. [place] assists only prior to or following the activity. 4-Supervision or Touching Assistance-helper provides verbal cues and/or touching/steadying and/or contact guard assistance as patient completes activity. Assistance may be provided throughout the activity or intermittently. 3-Partial/Moderate Assistance-helper does LESS THAN HALF the effort. [place] lif ts, holds or supports trunk or limbs, but provides less than half the effort. 2-Substantial/Maximal Assistance-helper does MORE THAN HALF the effort. [place] lifts or holds trunk or limbs and provides more than half the effort. 9-Osjtjybpx-uymhkv does ALL the effort. Patient does none of the effort to complete the activity. Or, the assistance of 2 or more helpers is required for the patient to complete the activity. If activity was not attempted, code reason: 7-Patient Refused. 9-Not Applicable-not attempted and the patient did not perform the activity before the current illness, exacerbation or injury. 10-Not Attempted due to Environmental Limitations-(lack of equipment, weather restraints, etc.). 88-Not Attempted due to Medical Conditions or Safety Concerns. Eating (QC): 6 (Per pt report, she is independent with opening containers, cutting food, and bringing food to mouth.) Shower/Bathe Self (QC): 1 (Pt taken to large shower room in large bath chair. Pt did not feel steady while showering, being unable to let go of the shower chair in order to bathe. OT dependently bathed pt on this date.) Upper Body Dressing (QC): 3 (Pt donned gown over head and through arms, rolled side to side as OT assisted with managing gown down at sides.) Lower Body Dressing (QC): 88 (Not attempted due to paraplegia. Based on clinical reasoning pt would be dependent with task.) On/Off Footwear: 88 (Not attempted due to paraplegia. Based on clinical reasoning pt would be dependent with task.) Toileting Hygiene (QC): 1 (Pt rolled side to side as OT assisted with hygiene.) Toilet Transfer (QC): 88 (Not attempted due to paraplegia) Other Treatment OT/PT cotreat due to increased medical complexity, decreased functional ability, and paraplegia requiring the skill of 2 disciplines which a clinical rehab liaison could not perform. OT focused on ADLs, UE placement, cues for safety and sequencing while PT focused on LE placement and overall gross movements. Pt seated in recliner, transferred to bed via laura in order for sling to be switched out for mesh sling in order to shower. Pt transferred to large shower chair and taken to [facility] shower room. Pt reports she felt like she was slipping out of the chair, OT and PT assured pt that she was safely in the chair. Pt unable to let go of shower chair due to feeling like she is sliding out. Pt dependent for shower on this date. Pt taken back to her room, pt again stating she felt like she was slipping out and saying that she was unable to breath. Pt repeatedly said "I can't breathe, I can't breathe", pt then transferred to the bed via laura, and pt reported she felt more secure. Pt asked for vitals to be taken at this time, BP 127/82, O2 sat 95%, and 112 HR. Pt instructed to continue diaphragmatic breathing. Pt rolled side to side in order to remove wet sling and replace with dry sling. Pt then transferred to w/c. Post OT/PT cotreat, pt seated in w/c upright with PT, all needs met. Education OT Patient Education: Correct positioning, Energy conservation, Modified ADL techniques, Progress toward Goal/Update tx plan, Purpose of tx/functional activities Teaching Recipient: Patient Teaching Methods: Discussion Response to Teaching: Verbalize Understanding OT Short Term Goals Short Term Goals Time Frame: Mar 03, 2020 Toileting hygiene: 2 Shower/bathe self: 3 OT Washcloth Folder Goals Washcloth Folder Goals Time Frame: Mar 17, 2020 Eating (QC): 6 Oral Hygiene (QC): 6 Toileting Hygiene (QC): 4 Shower/Bathe Self (QC): 4 Upper Body Dressing (QC): 5 Lower Body Dressing (QC): 3 On/Off Footwear (QC): 6 Additional Goals: 1-Demonstrate ADL Tasks, 2-Verbalize Understanding, 3-ImproveStrength/Regulo 1=Demonstrate adherence to instructed precautions during ADL tasks. 2=Patient will verbalize/demonstrate understanding of assistive devices/modifications for ADL. 3=Patient will improve strength/tolerance for activity to enable patient to perform ADL's. OT Education/Plan Problem List/Assessment Assessment: Decreased Activ Tolerance, Decreased UE Strength, Dependent Transfers, Impaired I ADL's, Impaired Self-Care Skills Discharge Recommendations Plan/Recommendations: Continue POC Treatment Plan/Plan of Care Treatment,Training & Education: Yes Patient would benefit from OT for education, treatment and training to promote independence in ADL's, mobility, safety and/or upper extremity function for ADL's. Plan of Care: ADL Retraining, Caregiver Training, Concurrent Therapy, Functional Mobility, Group Exercise/Act as Ind, UE Funct Exercise/Act, W/C Management Training Treatment Duration: Mar 10, 2020 Frequency: At least 5 of 7 days/Wk (IRF) Estimated Hrs Per Day: 1.5 hours per day Agreement: Yes Rehab Potential: Poor Time/GCodes Start Time: 08:15 Stop Time: 09:45 Total Time Billed (hr/min): 90 Billed Treatment Time 1, ADL 6 WOLF EPPERSON OT Mar 14, 2020 10:17
--- NOTE | 2020-03-14 10:19 | PM&R Progress Note ---
Subjective HPI/CC On Admission Date Seen by Provider: Mar 14, 2020 Time Seen by Provider: 10:30 Subjective/Events-last exam Large BM on regular basis now on laxatives Holding Lopressor due to low BP. A&D ointment added to under her breasts since she has more success with that than the Nystatin Sugar lift dependent requiring NHP and that will take place tomorrow 03/15/20 No new issues Moving around in w/c pretty well but sedentary mostly No new falls Pain controlled on long acting and rapid acting Overnight O2 study revealed she needs 2L/min and I reviewed the report and will put DC order in for that. Changed catheter 03/13/20 since it was close to 4 weeks since it was placed and will need that changed every 4 weeks at [place] Checked meds and labs Conferred wtih RN Reviewed therapy notes Review of Systems General: Fatigue Neurological: Weakness, Numbness, Incoordination Objective Exam Vital Signs Vital Signs Date Time Temp Pulse Resp B/P (MAP) Pulse Ox O2 Delivery O2 Flow Rate FiO2 03/15/20 09:00 Room Air 03/15/20 05:08 36.0 79 20 108/70 (83) 98 2.00 Capillary Refill : Less Than 3 SecondsLess Than 3 Seconds General Appearance: No Apparent Distress, WD/WN, Chronically ill, Obese HEENT: PERRL/EOMI, Normal ENT Inspection, Pharynx Normal Neck: Full Range of Motion, Normal Inspection, Non Tender, Supple, Carotid Bruit Respiratory: Chest Non Tender, Lungs Clear, Normal Breath Sounds, No Accessory Muscle Use, No Respiratory Distress Cardiovascular: Regular Rate, Rhythm, No Gallop, No JVD, No Murmur, Normal Peripheral Pulses Gastrointestinal: Normal Bowel Sounds, No Organomegaly, No Pulsatile Mass, Non Tender, Soft Back: Normal Inspection, No CVA Tenderness, Decreased Range of Motion Extremity: Normal Capillary Refill, Normal Inspection, Pedal Edema Neurologic/Psychiatric: Alert, Oriented x3, plugger man II-XII Norm as Tested, Depressed Affect, Motor Weakness Skin: Normal Color, Warm/Dry Lymphatic: No Adenopathy Results/Procedures Lab Patient resulted labs reviewed. FIM Transfers Therapy Code Descriptions/Definitions Functional [place] Measure: 0=Not Assessed/NA 4=Minimal Assistance 1=Total Assistance 5=Supervision or Setup 2=Maximal Assistance 6=Modified [place] 3=Moderate Assistance 7=Complete IndependenceSCALE: Activities may be completed with or without assistive devices. 8-Qtsmcwpomp-zheelpt completes the activity by him/herself with no assistance from a helper. 5-Set-up or Clean-up Assistance-helper sets up or cleans up; patient completes activity. [place] assists only prior to or following the activity. 4-Supervision or Touching Assistance-helper provides verbal cues and/or touching/steadying and/or contact guard assistance as patient completes activity. Assistance may be provided throughout the activity or intermittently. 3-Partial/Moderate Assistance-helper does LESS THAN HALF the effort. [place] lifts, holds or supports trunk or limbs, but provides less than half the effort. 2-Substantial/Maximal Assistance-helper does MORE THAN HALF the effort. [place] lifts or holds trunk or limbs and provides more than half the effort. 3-Dekhdaabl-oculfu does ALL the effort. Patient does none of the effort to complete the activity. Or, the assistance of 2 or more helpers is required for the patient to complete the activity. If activity was not attempted, code reason: 7-Patient Refused. 9-Not Applicable-not attempted and the patient did not perform the activity before the current illness, exacerbation or injury. 10-Not Attempted due to Environmental Limitations-(lack of equipment, weather restraints, etc.). 88-Not Attempted due to Medical Conditions or Safety Concerns. Roll Left to Right (QC): 2 (MaxA x2) Sit to Lying (QC): 1 Sit to Stand (QC): 88 Chair/Dtm-zz-Dbegy Xfer(QC): 1 (transfers via sugar lift) Car Transfer (QC): 88 Gait Training Does the Patient Walk?: No and Walking Goal NOT indicated Walk 10 feet (QC): 88 Walk 50 ft with 2 Turns(QC): 88 Walk 150 ft (QC): 88 Walking 10ft/uneven surface-QC: 88 Wheelchair Training Does the Pt Use a Wheelchair?: Yes Wheel 50 ft with 2 turns (QC): 4 (pt requires assistance w/ turns and guiding through doorways) Wheel 150 ft (QC): 5 Type of Wheelchair: Manual Stair Training 1 Step (curb) (QC): 88 4 Steps (QC): 88 12 Steps (QC): 88 Balance Picking up an Object (QC): 88 ADL-Treatment Eating (QC): 6 (Per pt report, she is independent with opening containers, cutting food, and bringing food to mouth.) Oral Hygiene (QC): 5 (oral hygiene) Bathing Location: L Arm, R Arm, L Upper Leg, R Upper Leg, L Lower Leg (including foot), R Lower Leg (including foot), Chest, Abdomen Shower/Bathe Self (QC): 1 (Pt taken to large shower room in large bath chair. Pt did not feel steady while showering, being unable to let go of the shower chair in order to bathe. OT dependently bathed pt on this date.) Upper Body Dressing (QC): 3 (Pt donned gown over head and through arms, rolled side to side as OT assisted with managing gown down at sides.) Lower Body Dressing (QC): 88 (Not attempted due to paraplegia. Based on clinical reasoning pt would be dependent with task.) On/Off Footwear (QC): 88 (Not attempted due to paraplegia. Based on clinical reasoning pt would be dependent with task.) Toileting Hygiene (QC): 1 (Pt rolled side to side as OT assisted with hygiene.) Toilet Transfer (QC): 88 (Not attempted due to paraplegia) Assessment/Plan Assessment and Plan Assess & Plan/Chief Complaint Assessment: (1) Paraplegia at T9 level ICD Codes: G82.20 - Paraplegia, unspecified (2) Acute osteomyelitis of spine Status: Acute ICD Codes: M46.20 - Osteomyelitis of vertebra, site unspecified (3) White catheter in place ICD Codes: Z96.0 - Presence of urogenital implants (4) Neurogenic bladder ICD Codes: N31.9 - Neuromuscular dysfunction of bladder, unspecified (5) Chronic mental illness ICD Codes: F99 - Mental disorder, not otherwise specified (6) Depression ICD Codes: F32.9 - Major depressive disorder, single episode, unspecified (7) H/O gastric bypass ICD Codes: Z98.84 - Bariatric surgery status (8) Fecal incontinence ICD Codes: R15.9 - Full incontinence of feces (9) Acute respiratory failure with hypoxia Status: Acute ICD Codes: J96.01 - Acute respiratory failure with hypoxia (10) T2DM (type 2 diabetes mellitus) Status: Chronic ICD Codes: E11.9 - Type 2 diabetes mellitus without complications (11) Paresthesia of both legs Status: Acute ICD Codes: R20.2 - Paresthesia of skin (12) RLS (restless legs syndrome) Status: Chronic ICD Codes: G25.81 - Restless legs syndrome (13) Elevated liver function tests Status: Acute ICD Codes: R94.5 - Abnormal results of liver function studies (14) HLD (hyperlipidemia) Status: Chronic ICD Codes: E78.5 - Hyperlipidemia, unspecified (15) HTN (hypertension) Status: Chronic ICD Codes: I10 - Essential (primary) hypertension (16) Morbid obesity Status: Chronic ICD Codes: E66.01 - Morbid (severe) obesity due to excess calories (17) Shortness of breath Status: Acute ICD Codes: R06.02 - Shortness of breath (18) Hypoxia Status: Acute ICD Codes: R09.02 - Hypoxemia GERD Plan: IRF until DC to NH tomorrow Wheelchair mobility with bariatric wheelchair Increased ADL's in order to decrease burden to caregivers at correction Psych management could be required at times during the management course BM regimen to maintain to prevent narcotic bowel Neurogenic bladder will likely need SP cath in the future but keep in-dwelling for now and changed that 03/13/20 Pain control PPI with TUMS Levaquin for osteomyelitis of spine IV form but transition to PO form to be maintained until end of March and will place those orders PICC line will DC prior to DC to NH Long acting narcotic maintained along with break through pain med and that is adequate Accucheck only in am daily is working well Lidocaine patch with K-pad seems to be helping DC NH Wed (1) Paraplegia at T9 level (2) Acute osteomyelitis of spine Status: Acute (3) White catheter in place (4) Neurogenic bladder (5) Chronic mental illness (6) Depression (7) H/O gastric bypass (8) Fecal incontinence (9) Acute respiratory failure with hypoxia Status: Acute (10) T2DM (type 2 diabetes mellitus) Status: Chronic (11) Paresthesia of both legs Status: Acute (12) RLS (restless legs syndrome) Status: Chronic (13) Elevated liver function tests Status: Acute (14) HLD (hyperlipidemia) Status: Chronic (15) HTN (hypertension) Status: Chronic (16) Morbid obesity Status: Chronic (17) Shortness of breath Status: Acute (18) Hypoxia Status: Acute KATELYN JENSEN DO Mar 14, 2020 10:19
--- NOTE | 2020-03-14 12:07 | Physical Therapy Daily Note ---
PT Daily Note-Current Subjective Pt sitting in recliner upon arrival. Pt agrees to PT/OT co-treat. Pain Numeric Pain Scale: 10-Worst Possible Pain Location: Medial Location Body Site: Back Pain Description: Burning, Tightness Comment: Pt moans throughout Rx, even cries during Rx Mental Status Patient Orientation: Person, Place, Situation Attachments: Other-See Comments (Sugar Baez (mesh)) Transfers SCALE: Activities may be completed with or without assistive devices. 9-Efryinfoal-tmbajpb completes the activity by him/herself with no assistance from a helper. 5-Set-up or Clean-up Assistance-helper sets up or cleans up; patient completes activity. [place] assists only prior to or following the activity. 4-Supervision or Touching Assistance-helper provides verbal cues and/or touching/steadying and/or contact guard assistance as patient completes activity. Assistance may be provided throughout the activity or intermittently. 3-Partial/Moderate Assistance-helper does LESS THAN HALF the effort. [place] lifts, holds or supports trunk or limbs, but provides less than half the effort. 2-Substantial/Maximal Assistance-helper does MORE THAN HALF the effort. [place] lifts or holds trunk or limbs and provides more than half the effort. 3-Ftenbavfi-flnvxf does ALL the effort. Patient does none of the effort to complete the activity. Or, the assistance of 2 or more helpers is required for the patient to complete the activity. If activity was not attempted, code reason: 7-Patient Refused. 9-Not Applicable-not attempted and the patient did not perform the activity before the current illness, exacerbation or injury. 10-Not Attempted due to Environmental Limitations-(lack of equipment, weather restraints, etc.). 88-Not Attempted due to Medical Conditions or Safety Concerns. Roll Left & Right (QC): 1 Sit to Lying (QC): 1 Lying to Sitting/Side of Bed(Q: 1 Sit to Stand (QC): 88 Chair/Ydn-ln-Vwict Xfer(QC): 1 Toilet Transfer (QC): 88 Car Transfer (QC): 88 Gait Training Does the Patient Walk?: No and Walking Goal NOT indicated Wheelchair Training Does the Pt Use a Wheelchair?: Yes Wheel 50 ft with 2 turns (QC): 3 Wheel 150 ft (QC): 7 Type of Wheelchair: Manual Stair Training 1 Step (curb) (QC): 9 4 Steps (QC): 9 12 Steps (QC): 9 Balance Picking up an Object (QC): 9 Treatments OT/PT cotreat due to increased medical complexity, decreased functional ability, and paraplegia requiring the skill of 2 disciplines which a rehabilitation technician could not perform. OT focused on ADLs, UE placement, cues for safety and sequencing while PT focused on LE placement and overall gross movements. Pt seated in recliner, transferred to bed via sugar in order for sling to be switched out for mesh sling in order to shower. Pt transferred to large shower chair and taken to large shower room. Pt reports she felt like she was slipping out of the chair, OT and PT assured pt that she was safely in the chair. Pt unable to let go of shower chair due to feeling like she is sliding out. Pt dependent for shower on this date. Pt taken back to her room, pt again stating she felt like she was slipping out and saying that she was unable to breath. Pt repeatedly said "I can't breathe, I can't breathe", pt then transferred to the bed via sugar, and pt reported she felt more secure. Pt asked for vitals to be taken at this time, BP 127/82, O2 sat 95%, and 112 HR. Pt instructed to continue diaphragmatic breathing. Pt rolled side to side in order to remove wet sling and replace with dry sling. Pt then transferred to w/c. Post OT/PT cotreat, pt seated in w/c upright with PT. PT only Rx: Pt performs W/C mobility in [facility]. Pt returns to room after W/C mobility to transfer via Sugar into recliner. Pt reports sling feels as though it is slipping up. Pt transfers to recliner but sling needs repositioned before pt can be repositioned in recliner to comfort. Pt has all needs met, Nurse present at end of Rx. Assessment Current Status: Poor Progress Pt demonstrates increased anxiety throughout Rx even with reassurance this does not subside. Pt self limits due to anxiety and reports pain throughout Rx. PT Short Term Goals Short Term Goals Time Frame: Mar 03, 2020 Roll Left & Right: 2 PT Mcc Goals Mcc Goals PT Mcc Goals Time Frame: Mar 17, 2020 Roll Left & Right (QC): 2 Sit to Lying (QC): 88 Lying-Sitting on Side/Bed(QC): 88 Sit to Stand (QC): 88 Chair/Dls-st-Shrpu Xfer(QC): 88 Toilet Transfer (QC): 88 Car Transfer (QC): 88 Does the Patient Walk: No and Walking Goal NOT indicated Walk 10 feet (QC): 88 Walk 50ft with 2 Turns (QC): 88 Walk 150 ft (QC): 88 Walking 10ft on Uneven Surface: 88 1 Step (curb) (QC): 88 4 Steps (QC): 88 12 Steps (QC): 88 Picking up an Object (QC): 88 Wheel 50 feet with 2 turns (QC: 4 Type: Motorized Wheel 150 feet: 4 Type: Motorized PT Plan Problem List Problem List: Activity Tolerance, Functional Strength, Safety, Balance, Transfer, Bed Mobility Treatment/Plan Treatment Plan: Continue Plan of Care Treatment Plan: Bed Mobility, Education, Functional Activity Regulo, Functional Strength, Group Therapy, Safety, Therapeutic Exercise, Transfers Treatment Duration: Mar 17, 2020 Frequency: At least 5 of 7 days/Wk (IRF) Estimated Hrs Per Day: 1.5 hours per day Patient and/or Family Agrees t: Yes Safety Risks/Education Patient Education: Transfer Techniques, Correct Positioning, W/C Management, Safety Issues Teaching Recipient: Patient Teaching Methods: Discussion Response to Teaching: Reinforcement Needed Time/GCodes Time In: 815 Time Out: 1025 Total Billed Treatment Time: 130 Total Billed Treatment 1, WCH x2 (25m) & FA x 7(105m) Co-treat w/OT 90m ([phone]) NIRMAL CORREIA PTA Mar 14, 2020 12:07
--- NOTE | 2020-03-14 14:11 | Occupational Ther Daily Note ---
OT Current Status-Daily Note Subjective Pt seated in recliner at start of session, agreeable to OT tx. ADL-Treatment Therapy Code Descriptions/Definitions Functional [place] Measure: 0=Not Assessed/NA 4=Minimal Assistance 1=Total Assistance 5=Supervision or Setup 2=Maximal Assistance 6=Modified [place] 3=Moderate Assistance 7=Complete IndependenceSCALE: Activities may be completed with or without assistive devices. 7-Xsbevgnvnl-rklsaxb completes the activity by him/herself with no assistance from a helper. 5-Set-up or Clean-up Assistance-helper sets up or cleans up; patient completes activity. [place] assists only prior to or following the activity. 4-Supervision or Touching Assistance-helper provides verbal cues and/or touchi ng/steadying and/or contact guard assistance as patient completes activity. Assistance may be provided throughout the activity or intermittently. 3-Partial/Moderate Assistance-helper does LESS THAN HALF the effort. [place] lifts, holds or supports trunk or limbs, but provides less than half the effort. 2-Substantial/Maximal Assistance-helper does MORE THAN HALF the effort. [place] lifts or holds trunk or limbs and provides more than half the effort. 6-Rnphgsnfa-zskotv does ALL the effort. Patient does none of the effort to complete the activity. Or, the assistance of 2 or more helpers is required for the patient to complete the activity. If activity was not attempted, code reason: 7-Patient Refused. 9-Not Applicable-not attempted and the patient did not perform the activity before the current illness, exacerbation or injury. 10-Not Attempted due to Environmental Limitations-(lack of equipment, weather restraints, etc.). 88-Not Attempted due to Medical Conditions or Safety Concerns. Oral Hygiene (QC): 5 (set up at tray table.) Other Treatment Pt completed hair brushing and teeth brushing with set up at tray table. Pt then transferred to bed via laura. She rolled side to side in order for sling removal from underneath her. Pt asked to be propped with pillows under her left side and pillows underneath her feet. Post OT session, pt laying in bed, call light in reach and all needs met. Education OT Patient Education: Correct positioning, Energy conservation, Modified ADL techniques, Progress toward Goal/Update tx plan, Purpose of tx/functional activities, Transfer techniques Teaching Recipient: Patient Teaching Methods: Discussion Response to Teaching: Verbalize Understanding OT Short Term Goals Short Term Goals Time Frame: Mar 03, 2020 Toileting hygiene: 2 Shower/bathe self: 3 OT Nursing Home Goals Senior Data Mining Analyst Goals Time Frame: Mar 17, 2020 Eating (QC): 6 Oral Hygiene (QC): 6 Toileting Hygiene (QC): 4 Shower/Bathe Self (QC): 4 Upper Body Dressing (QC): 5 Lower Body Dressing (QC): 3 On/Off Footwear (QC): 6 Additional Goals: 1-Demonstrate ADL Tasks, 2-Verbalize Understanding, 3- ImproveStrength/Regulo 1=Demonstrate adherence to instructed precautions during ADL tasks. 2=Patient will verbalize/demonstrate understanding of assistive devices/modifications for ADL. 3=Patient will improve strength/tolerance for activity to enable patient to perform ADL's. OT Education/Plan Problem List/Assessment Assessment: Decreased Activ Tolerance, Decreased UE Strength, Dependent Transfers, Impaired I ADL's, Impaired Self-Care Skills Discharge Recommendations Plan/Recommendations: Continue POC Treatment Plan/Plan of Care Patient would benefit from OT for education, treatment and training to promote independence in ADL's, mobility, safety and/or upper extremity function for ADL's. Plan of Care: ADL Retraining, Caregiver Training, Concurrent Therapy, Functional Mobility, Group Exercise/Act as Ind, UE Funct Exercise/Act, W/C Management Training Treatment Duration: Mar 10, 2020 Frequency: At least 5 of 7 days/Wk (IRF) Estimated Hrs Per Day: 1.5 hours per day Agreement: Yes Rehab Potential: Poor Time/GCodes Start Time: 13:45 Stop Time: 14:00 Total Time Billed (hr/min): 15 Billed Treatment Time 1, ADL WOLF EPPERSON OT Mar 14, 2020 14:11
--- NOTE | 2020-03-14 15:45 | NUR ---
CM/SS FINAL DISCHARGE PLANNING Patient will discharge to [facility] tomorrow, rock picker time is 1200. Facility understands to provide bariatric wheelchair. Patient completed Advanced Directive with [facility] today, original to patient and copy to hospital chart for EMR. Patient sleeping soundly at this time, will inform of rock picker time when awake. [facility] Assessment requirement suspended at this time due to Covid19 closures and limits.
[2020-03-14 15:56] VITALS: BP 102/66
[2020-03-14] MEDS: LEVOFLOXACIN 750 MG/150 ML IV 150 ML IV SCH (16:08)
--- NOTE | 2020-03-14 19:16 | NUR ---
bedside report received from WILVER SANTOS & BEVERLY RN, assume care of pt
[2020-03-14] MEDS: rOPINIRole 1 MG (REQUIP) TABLET PO SCH (20:36)
--- NOTE | 2020-03-14 20:36 | NUR ---
pt refused Colace, miralax, Senokot & Senokot 8.6, pt c/o back pain level 7/10 on numeric scale, oxyir 10mg given
[2020-03-14] MEDS: ENOXAPARIN 60 MG/0.6 ML (LOVENOX) SYR SC SCH (20:37)
[2020-03-14] MEDS: A & D OINT 113 GM TUBE TOP SCH (20:46)
[2020-03-14] MEDS: LIDOCAINE PATCH REMOVAL TP SCH (20:54)
--- NOTE | 2020-03-14 21:15 | NUR ---
resting quietly in bed, pain level 0/10 on CNPI scale
[2020-03-15 05:08] VITALS: BP_SYST 108; BP_SYST 81; BP_DIAS 53; BP_DIAS 70
[2020-03-15] MEDS ORDERED: KCL 10 MEQ TAB (MICRO K) PO ONE (05:53)
[2020-03-15] MEDS: oxyCODONE ER 10 MG (OxyCONTIN CR) TAB PO SCH (06:01)
[2020-03-15] MEDS: CATHETER FLUSH 10 ML SYR IV SCH (06:05)
[2020-03-15] MEDS: KCL 10 MEQ TAB (MICRO K) PO SCH (06:47)
--- NOTE | 2020-03-15 06:50 | NUR ---
up in the chair per lift & 2 people assist
[2020-03-15] MEDS ORDERED: LACT1CAP7 PO (06:55)
[2020-03-15] MEDS ORDERED: ROPI1TAB PO (06:55)
[2020-03-15] MEDS ORDERED: ALPR0.25 PO (06:55)
[2020-03-15] MEDS ORDERED: PANT40TA3 PO (06:55)
[2020-03-15] MEDS ORDERED: MELA3TAB39 PO (06:55)
[2020-03-15] MEDS ORDERED: SENN-20 PO (06:55)
[2020-03-15] MEDS ORDERED: Lidocaine 4% Patch TOP (06:55)
[2020-03-15] MEDS ORDERED: AD60O TOP (06:55)
[2020-03-15] MEDS ORDERED: OXYC5TAB96 PO (06:55)
[2020-03-15] MEDS ORDERED: BACL10TA PO (06:55)
[2020-03-15] MEDS ORDERED: LEVO750T9 PO (06:55)
[2020-03-15] MEDS ORDERED: INSU100V5 SQ (06:55)
[2020-03-15] MEDS ORDERED: ENOX60DI7 SC (06:55)
[2020-03-15] MEDS ORDERED: ONDA4TAB11 PO (06:55)
[2020-03-15] MEDS ORDERED: OXYC10TA55 PO (06:55)
--- NOTE | 2020-03-15 06:58 | Discharge Inst-Skilled Nursing ---
Discharge Inst-Skilled NF Reconcile Patient Problems Problems Reviewed?: Yes Patient Instructions Patient Problems: New paraplegia from T9 osteomyelitis DM SUKHWINDER Goal: Return home Consult/Follow Up/Orders Follow Up Appt.: [facility] rounds Skilled NF Admit to: Certification (SNF) I certify that SNF services are required to be given on an inpatient basis because of the above named patient's need for prison care on a continuing basis for the conditions(s) for which he/she was receiving inpatient hospital services prior to his/her transfer to the SNF. Long-Term Facility Order: Nursing Services, Product Design Specialist-Evaluate & Treat, Physical Therapy-Evaluate & Treat, Speech Language-Evaluate & Treat, Wound Care-Eval/Treat Oxygen Delivery Method: Nasal Cannula (2L/min at night) Resuscitation Status: Full Code New & Resume Previous Orders New Medications: Levofloxacin (Levaquin) 750 Mg Tablet 750 MG PO DAILY for 14 Days, TAB Oxycodone HCl (Oxycontin) 10 Mg Tab.er.12h 10 MG PO Q12H, #60 TAB Oxycodone HCl (Oxycodone IR) 5 Mg Tablet 10 MG PO Q4H PRN for PAIN-MODERATE (5-7), #60 TAB Baclofen (Baclofen) 10 Mg Tablet 10 MG PO Q6HR PRN for PAIN-MODERATE (5-7) for 30 Days, TAB Enoxaparin Sodium (Enoxaparin Sodium) 60 Mg/0.6 Ml Syringe 60 MG SC Q12HR for 30 Days, SYRINGE Insulin Determir (Levemir) 1,000 Units/10 Ml Soln 10 UNIT SQ HS for 30 Days, EA Lactobacillus Acidophilus/Pect (Acidophilus-Pectin Capsule) 1 Each Capsule 2 EACH PO TIDWM for 30 Days, CAP [Lidocaine 4% Patch] () 1 EA PATCH 1 EA TOP DAILY for 30 Days Melatonin (Melatonin) 3 Mg Tablet 3 MG PO HS PRN for INSOMNIA for 30 Days, TAB Ondansetron (Ondansetron Odt) 4 Mg Tab.rapdis 4 MG PO Q6H PRN for NAUSEA/VOMITING-1ST LINE for 30 Days, TAB Pantoprazole Sodium (Pantoprazole Sodium) 40 Mg Tablet.dr 40 MG PO DAILY for 30 Days, TAB Sennosides/Docusate Sodium (Senna-Time S Tablet) 1 Each Tablet 1 EA PO BID for 30 Days, TAB Vitamin A & D (Vitamin A & D Ointment) 60 Gm Oint 0 GM TOP BID for 30 Days, TUBE Continued Medications: Alprazolam (Alprazolam) 0.25 Mg Tablet 0.25 MG PO Q8H PRN for ANXIETY MDD 4 TABS IN 24 HOURS CAN TAKE 1 TAB EVERY 8 HOURS DURING THE DAY- IF THE PT HAS NOT HAD MORE THEN 2 DOSES DURING THE DAY THEN PT CAN HAVE 2 TABS AT BEDTIME. MAY NOT EXCEED 4 TABS PER 24 HOURS Alprazolam (Xanax) 0.25 Mg Tablet 0.5 MG PO HS PRN for ANXIETY MDD 4 TABS 24 HOURS, #30 TAB (This prescription has been renewed) CAN TAKE 1 TAB EVERY 8 HOURS DURING THE DAY- IF THE PT HAS NOT HAD MORE THEN 2 DOSES DURING THE DAY THEN PT CAN HAVE 2 TABS AT BEDTIME. MAY NOT EXCEED 4 TABS PER 24 HOURS Aripiprazole (Aripiprazole) 5 Mg Tablet 5 MG PO DAILY, TAB Atorvastatin Calcium (Atorvastatin Calcium) 40 Mg Tablet 40 MG PO DAILY, TAB Calcium Carbonate/Vitamin D3 (Calcium 600 + Vit D 200 Tablet) 1 Each Tablet 1 EACH PO DAILY, TAB Celecoxib (Celebrex) 400 Mg Capsule 400 MG PO DAILY, CAP Cholecalciferol (Vitamin D3) (Vitamin D3) 50 Mcg Capsule 50 MCG PO DAILY, CAP Docusate Sodium (Colace) 100 Mg Capsule 100 MG PO BID, CAP Ergocalciferol (Vitamin D2) (Vitamin D2) 1,250 Mcg Capsule 1250 MCG PO SUN,THUR, CAP Gabapentin (Gabapentin) 300 Mg Capsule 300 MG PO TID, CAP Metformin HCl (Metformin HCl) 500 Mg Tablet 250 MG PO DAILY, TAB TAKES OF A 500MG TAB DAILY Multivitamin (Multivitamins) 1 Each Tablet 1 EACH PO DAILY, TAB Polyethylene Glycol 3350 (Miralax) 17 Gm Powd.pack 17 GM PO DAILY, EACH Potassium Chloride (Potassium Chloride) 20 Meq Tablet.er 20 MEQ PO DAILY, TAB Ropinirole HCl (Ropinirole HCl) 1 Mg Tablet 1 MG PO HS for 30 Days, TAB (This prescription has been renewed) Thiamine HCl (Vitamin B-1) 250 Mg Tablet 250 MG PO DAILY, TAB Topiramate (Topiramate) 25 Mg Tablet 25 MG PO DAILY, TAB Torsemide (Torsemide) 100 Mg Tablet 50 MG PO BID, TAB TAKES TAB OF 100MG TO EQUAL 50MG TWICE DAILY Venlafaxine HCl (Venlafaxine HCl) 75 Mg Tab 75 MG PO QID, TAB Zonisamide (Zonisamide) 100 Mg Capsule 200 MG PO BID, CAP TAKES 2 (100MG) CAPS TO EQUAL 200MG TWICE DAILY Discontinued Medications: Cyclobenzaprine HCl (Cyclobenzaprine HCl) 10 Mg Tablet 10 MG PO Q8H PRN for PAIN, TAB Hydrochlorothiazide (Hydrochlorothiazide) 12.5 Mg Tablet 12.5 MG PO DAILY, TAB Ibuprofen (Ibuprofen) 600 Mg Tablet 600 MG PO TID, TAB Metoprolol Tartrate (Metoprolol Tartrate) 25 Mg Tablet 25 MG PO BID, TAB HOLD FOR SBP OF 110 OR BELOW, PULSE OF 60 OR BELOW Omeprazole (Omeprazole) 20 Mg Capsule.dr 20 MG PO BID, CAP Lisa Sheffield Mar 15, 2020 06:56 LISA SHEFFIELD DO Mar 15, 2020 06:58
[2020-03-15] MEDS: ZONISAMIDE 100 MG CAP (ZONEGRAN) NON-FORMULARY PO SCH (08:12)
[2020-03-15] MEDS: ENOXAPARIN 60 MG/0.6 ML (LOVENOX) SYR SC SCH (08:12)
[2020-03-15] MEDS: LIDOCAINE 4% (SALONPAS) PATCH TOP SCH (08:12)
[2020-03-15] MEDS: GABAPENTIN 300 MG (NEURONTIN) CAP PO SCH (08:12)
[2020-03-15] MEDS: LACTOBACILLUS ACIDOPHILUS (PROBIOTIC) CAPSULE PO SCH (08:12)
[2020-03-15] MEDS: VENlafaxine 75 MG (EFFEXOR) TAB PO SCH (08:13)
[2020-03-15] MEDS: DOCUSATE SODIUM 100 MG (COLACE) CAP PO SCH (08:13)
[2020-03-15] MEDS: SENNOSIDES 8.6 MG (SENOKOT) TAB PO SCH (08:13)
[2020-03-15] MEDS: PANTOPRAZOLE 40 MG (PROTONIX) TAB PO SCH (08:13)
[2020-03-15] MEDS: FUROSEMIDE 40 MG (LASIX) TAB PO SCH (08:13)
[2020-03-15] MEDS: toPIRamate 25 MG (TOPAMAX) TAB PO SCH (08:13)
[2020-03-15] MEDS: SENNA W/DOCUSATE (SENOKOT S) TABLET PO SCH (08:13)
[2020-03-15] MEDS: ARTIFICAL TEARS 0.4 ML UNIT DOSE (REFRESH PLUS) OU SCH (08:13)
[2020-03-15] MEDS: A & D OINT 113 GM TUBE TOP SCH (08:17)
[2020-03-15] MEDS: polyethylene glycoL POWDER 17 GM (MIRALAX) PACK PO SCH (08:17)
[2020-03-15] MEDS: BACLOFEN 10 MG (LIORESAL) TAB PO PRN (08:24)
--- NOTE | 2020-03-15 10:43 | Discharge Summary ---
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 To note she presented to the [facility] ER on 02/11 for back pain lumbar spine revealed no fracture except T11 compression fracture which was chronic and treated for constipation then returned the following day for continued constipation and weakness of her legs which was assessed to be right sided sciatica brought on by severe obesity and then returned back to ER unable to be cared for at home due to morbid obesity and essentially too weak to stand on her legs so she was admitted to [place] and returned 4 days later with respiratory insufficiency and CT scans revealed the destructive lesion at T9-T10 that is causing the spinal cord injury. Patient will require psych evaluation and management for chronic mental illness flared due to this catastrophic event. DC note 02/17-02/24: Hospital course: patient had a lengthy course after she was admitted for paralysis of legs and back pain and respiratory insufficiency. CT obtained revealing destructive process ( Findings are worrisome for advanced T9- T10 vertebral osteomyelitis and intervertebral discitis with posterior cortical breakthrough. Further characterization with contrast-assisted thoracic spinal MRI recommended as further evaluation. Sequelae of neoplasm less likely but cannot be absolutely excluded). Levaquin initiated but BCx were all negative. Lovenox maintained for DVt PPx. Vapotherm required with IV steroids and eventually she was weaned off Vapotherm after IV diuresis successful for volume overload. Multiple physicians were updated along with Alan Schumacher, Chance, Dany along with 4 multiple attempts to [facility] for transfer which upon review of clouded images Dr Gomez BROWN stated after 1 week of abx there is no possibility of surgical options that would benefit the patient and if MRI could be obtained in the future some sort of re-consultation could be entertained but also the pandemic fo COVID-19 was also relevant in limitations of transfer and considering she could not be transferred to due to severe respiratory failure. Patient was assessed to be a candidate for IRF even if it was only for wheelchair mobility and family expressed intentions to help when she returned home and she was moved to [facility] for structured rehab protocol. Patient remains with romero cath and has fecal incontinence. Discharge Diagnosis Assessment: (1) Paraplegia at T9 level ICD Codes: G82.20 - Paraplegia, unspecified (2) Acute osteomyelitis of spine Status: Acute ICD Codes: M46.20 - Osteomyelitis of vertebra, site unspecified (3) Romero catheter in place ICD Codes: Z96.0 - Presence of urogenital implants (4) Neurogenic bladder ICD Codes: N31.9 - Neuromuscular dysfunction of bladder, unspecified (5) Chronic mental illness ICD Codes: F99 - Mental disorder, not otherwise specified (6) Depression ICD Codes: F32.9 - Major depressive disorder, single episode, unspecified (7) H/O gastric bypass ICD Codes: Z98.84 - Bariatric surgery status (8) Fecal incontinence ICD Codes: R15.9 - Full incontinence of feces (9) Acute respiratory failure with hypoxia Status: Acute ICD Codes: J96.01 - Acute respiratory failure with hypoxia (10) T2DM (type 2 diabetes mellitus) Status: Chronic ICD Codes: E11.9 - Type 2 diabetes mellitus without complications (11) Paresthesia of both legs Status: Acute ICD Codes: R20.2 - Paresthesia of skin (12) RLS (restless legs syndrome) Status: Chronic ICD Codes: G25.81 - Restless legs syndrome (13) Elevated liver function tests Status: Acute ICD Codes: R94.5 - Abnormal results of liver function studies (14) HLD (hyperlipidemia) Status: Chronic ICD Codes: E78.5 - Hyperlipidemia, unspecified (15) HTN (hypertension) Status: Chronic ICD Codes: I10 - Essential (primary) hypertension (16) Morbid obesity Status: Chronic ICD Codes: E66.01 - Morbid (severe) obesity due to excess calories (17) Shortness of breath Status: Acute ICD Codes: R06.02 - Shortness of breath (18) Hypoxia Status: Acute ICD Codes: R09.02 - Hypoxemia GERD Plan: IRF until DC to [place] tomorrow Wheelchair mobility with bariatric wheelchair Increased ADL's in order to decrease burden to caregivers at custodial Psych management could be required at times during the management course BM regimen to maintain to prevent narcotic bowel Neurogenic bladder will likely need SP cath in the future but keep in-dwelling for now and changed that 03/13/20 Pain control PPI with TUMS Levaquin for osteomyelitis of spine IV form but transition to PO form to be maintained until end of March and will place those orders PICC line will DC prior to DC to [place] Long acting narcotic maintained along with break through pain med and that is adequate Accucheck only in am daily is working well Lidocaine patch with K-pad seems to be helping DC [place] Wed (1) Paraplegia at T9 level (2) Acute osteomyelitis of spine Status: Acute (3) Romero catheter in place (4) Neurogenic bladder (5) Chronic mental illness (6) Depression (7) H/O gastric bypass (8) Fecal incontinence (9) Acute respiratory failure with hypoxia Status: Acute (10) T2DM (type 2 diabetes mellitus) Status: Chronic (11) Paresthesia of both legs Status: Acute (12) RLS (restless legs syndrome) Status: Chronic (13) Elevated liver function tests Status: Acute (14) HLD (hyperlipidemia) Status: Chronic (15) HTN (hypertension) Status: Chronic (16) Morbid obesity Status: Chronic (17) Shortness of breath Status: Acute (18) Hypoxia Status: Acute Discharge Summary Discharge Physical Examination Allergies: Coded Allergies: adhesive tape (Unverified Allergy, Unknown, 01/16/20) Vitals & I&Os Vital Signs Date Time Temp Pulse Resp B/P (MAP) Pulse Ox O2 Delivery O2 Flow Rate FiO2 03/15/20 09:00 Room Air 03/15/20 05:08 36.0 79 20 108/70 (83) 98 2.00 General Appearance: Alert, Oriented X3, Cooperative Respiratory: Clear to Auscultation Cardiovascular: Regular Rate Neuro: Normal Speech Psych/Mental Status: Mental Status NL Hospital Course Was the Problem List Reviewed?: Yes Patient had a lengthy hospital course of 20 days in IRF after 7 days on acute med surg to help decrease burden on caregivers in order to go home with family versus NH. Patient had PICC line placed for Levaquin IV abx daily to complete 6 weeks of therapy for osteomyelitis of T9-T10 resulting in compression of the spinal cord and residual paraplegia. Patient required laura lift and bariatric wheelchair in order to help regain some ADL's and ROM of upper body. Patient was able to participate in all therapies as much as possible and remained with in- dwelling romero that likely will need transitioned to SP catheter in the future. Lovenox maintained for DVT PPx and may need OAC meterman due to high risk for DVT's. Labs remained stable and lung status resolved during IRF course. Night time O2 at 2L/min approved after formal RT study. All meds were assessed at time of DC including pain meds and laxatives and Dr Gifford PCP was updated on her arrival to [facility] by this physician. Labs (last 24 hrs) Laboratory Tests 02/25/20 20:18: Glucometer 237H 02/26/20 06:10: Glucometer 166H, White Blood Count 11.3H, Red Blood Count 4.56, Hemoglobin 13.4, Hematocrit 44, Mean Corpuscular Volume 95, Mean Corpuscular Hemoglobin 29, Mean Corpuscular Hemoglobin Concent 31L, Red Cell Distribution Width 15.4H, Platelet Count 372, Mean Platelet Volume 10.7H, Neutrophils (%) (Auto) 80H, Lymphocytes (%) (Auto) 15, Monocytes (%) (Auto) 4, Eosinophils (%) (Auto) 1, Basophils (%) (Auto) 0, Neutrophils # (Auto) 9.1H, Lymphocytes # (Auto) 1.6, Monocytes # (Auto) 0.5, Eosinophils # (Auto) 0.1, Basophils # (Auto) 0.0, Sodium Level 139, Potassium Level 3.3L, Chloride Level 92L, Carbon Dioxide Level 35H, Anion Gap 12, Blood Urea Nitrogen 36H, Creatinine 0.79, Estimat Glomerular Filtration Rate > 60, BUN/Creatinine Ratio 46, Glucose Level 170H, Calcium Level 9.1, Corrected Calcium 9.8, Total Bilirubin 0.5, Aspartate Amino Transf (AST/SGOT) 37H, Alanine Aminotransferase (ALT/SGPT) 125H, Alkaline Phosphatase 231H, Total Protein 7.9, Albumin 3.1L 02/26/20 10:41: Glucometer 206H 02/26/20 16:03: Glucometer 232H 02/26/20 20:03: Glucometer 198H 02/27/20 05:21: White Blood Count 11.5H, Red Blood Count 4.59, Hemoglobin 13.5, Hematocrit 44, Mean Corpuscular Volume 95, Mean Corpuscular Hemoglobin 29, Mean Corpuscular Hemoglobin Concent 31L, Red Cell Distribution Width 15.3H, Platelet Count 349, Mean Platelet Volume 10.7H, Neutrophils (%) (Auto) 83H, Lymphocytes (%) (Auto) 12, Monocytes (%) (Auto) 5, Eosinophils (%) (Auto) 0, Basophils (%) (Auto) 0, Neutrophils # (Auto) 9.5H, Lymphocytes # (Auto) 1.4, Monocytes # (Auto) 0.6, Eosinophils # (Auto) 0.1, Basophils # (Auto) 0.0, Sodium Level 137, Potassium Level 3.7, Chloride Level 93L, Carbon Dioxide Level 33H, Anion Gap 11, Blood Urea Nitrogen 34H, Creatinine 0.73, Estimat Glomerular Filtration Rate > 60, BUN/Creatinine Ratio 47, Glucose Level 198H, Calcium Level 9.0, Corrected Calci um 9.7, Total Bilirubin 0.5, Aspartate Amino Transf (AST/SGOT) 33, Alanine Aminotransferase (ALT/SGPT) 97H, Alkaline Phosphatase 213H, Total Protein 7.7, Albumin 3.1L 02/27/20 10:31: Glucometer 163H 02/27/20 16:13: Glucometer 210H 02/27/20 20:15: Glucometer 194H 02/28/20 05:25: White Blood Count 11.5H, Red Blood Count 4.60, Hemoglobin 13.8, Hematocrit 44, Mean Corpuscular Volume 95, Mean Corpuscular Hemoglobin 30, Mean Corpuscular Hemoglobin Concent 32, Red Cell Distribution Width 15.9H, Platelet Count 352, Mean Platelet Volume 11.0H, Neutrophils (%) (Auto) 79H, Lymphocytes (%) (Auto) 14, Monocytes (%) (Auto) 6, Eosinophils (%) (Auto) 1, Basophils (%) (Auto) 0, Neutrophils # (Auto) 9.0H, Lymphocytes # (Auto) 1.7, Monocytes # (Auto) 0.7, Eosinophils # (Auto) 0.1, Basophils # (Auto) 0.0, Erythrocyte Sedimentation Rate 63H, Sodium Level 139, Potassium Level 3.6, Chloride Level 95L, Carbon Dioxide Level 35H, Anion Gap 9, Blood Urea Nitrogen 31H, Creatinine 0.73, Estimat Glomerular Filtration Rate > 60, BUN/Creatinine Ratio 42, Glucose Level 153H, Calcium Level 8.9, Corrected Calcium 9.6, Iron Level 73, Total Bilirubin 0.5, Aspartate Amino Transf (AST/SGOT) 30, Alanine Aminotransferase (ALT/SGPT) 79H, Alkaline Phosphatase 204H, Total Protein 7.8, Albumin 3.1L, Vitamin B12 Level >2000H, Procalcitonin 0.03 02/28/20 07:22: Glucometer 188H 02/28/20 10:59: Glucometer 171H 02/28/20 15:36: Glucometer 259H 02/28/20 18:34: Glucometer 228H 02/28/20 20:10: Glucometer 186H 02/29/20 06:21: Glucometer 129H 02/29/20 10:45: Glucometer 189H 02/29/20 15:34: Glucometer 234H 02/29/20 20:07: Glucometer 146H 03/01/20 05:20: Glucometer 173H 03/01/20 11:16: Glucometer 226H 03/01/20 15:22: Glucometer 211H 03/01/20 20:15: Glucometer 107 03/02/20 05:08: White Blood Count 13.6H, Red Blood Count 4.35, Hemoglobin 13.1, Hematocrit 41, Mean Corpuscular Volume 93, Mean Corpuscular Hemoglobin 30, Mean Corpuscular Hemoglobin Concent 32, Red Cell Distribution Width 16.0H, Platelet Count 300, Mean Platelet Volume 10.7H, Neutrophils (%) (Auto) 78H, Lymphocytes (%) (Auto) 12, Monocytes (%) (Auto) 9, Eosinophils (%) (Auto) 1, Basophils (%) (Auto) 0, Neutrophils # (Auto) 10.6H, Lymphocytes # (Auto) 1.7, Monocytes # (Auto) 1.2H, Eosinophils # (Auto) 0.2, Basophils # (Auto) 0.0, Sodium Level 136, Potassium Level 2.9L, Chloride Level 92L, Carbon Dioxide Level 31, Anion Gap 13, Blood Urea Nitrogen 29H, Creatinine 0.75, Estimat Glomerular Filtration Rate > 60, BUN/Creatinine Ratio 39, Glucose Level 155H, Calcium Level 9.0, Corrected Calcium 9.7, Total Bilirubin 0.6, Aspartate Amino Transf (AST/SGOT) 34, Alanine Aminotransferase (ALT/SGPT) 56H, Alkaline Phosphatase 170H, Total Protein 7.6, Albumin 3.1L 03/02/20 10:47: Glucometer 219H 03/02/20 15:25: Glucometer 194H 03/02/20 20:11: Glucometer 136H 03/03/20 05:00: Glucometer 133H 03/03/20 10:51: Glucometer 195H 03/03/20 15:42: Glucometer 150H 03/03/20 20:08: Glucometer 159H 03/04/20 05:41: Glucometer 170H 03/04/20 10:28: Glucometer 165H 03/04/20 16:40: Glucometer 202H 03/04/20 20:04: Glucometer 130H 03/05/20 05:10: Glucometer 108 03/05/20 10:28: Glucometer 92 03/05/20 15:28: Glucometer 133H 03/06/20 04:30: White Blood Count 6.1, Red Blood Count 3.83L, Hemoglobin 11.4L, Hematocrit 36, Mean Corpuscular Volume 94, Mean Corpuscular Hemoglobin 30, Mean Corpuscular Hemoglobin Concent 32, Red Cell Distribution Width 16.8H, Platelet Count 174, Mean Platelet Volume 10.5H, Neutrophils (%) (Auto) 68, Lymphocytes (%) (Auto) 21, Monocytes (%) (Auto) 7, Eosinophils (%) (Auto) 4, Basophils (%) (Auto) 0, Neutrophils # (Auto) 4.2, Lymphocytes # (Auto) 1.3, Monocytes # (Auto) 0.4, Eosinophils # (Auto) 0.3, Basophils # (Auto) 0.0, Sodium Level 138, Potassium Level 3.2L, Chloride Level 97L, Carbon Dioxide Level 31, Anion Gap 10, Blood Urea Nitrogen 18, Creatinine 0.63, Estimat Glomerular Filtration Rate > 60, BU N/Creatinine Ratio 29, Glucose Level 93, Calcium Level 8.5, Corrected Calcium 9.5, Total Bilirubin 0.5, Aspartate Amino Transf (AST/SGOT) 33, Alanine Aminotransferase (ALT/SGPT) 39, Alkaline Phosphatase 150H, Total Protein 6.5, Albumin 2.7L 03/06/20 10:45: Glucometer 144H 03/06/20 15:49: Glucometer 132H 03/06/20 19:58: Glucometer 153H 03/07/20 05:20: Glucometer 115H 03/07/20 10:56: Glucometer 126H 03/08/20 05:09: Glucometer 101 03/09/20 05:41: Glucometer 117H 03/10/20 05:05: Glucometer 95 03/11/20 06:32: Glucometer 105 03/12/20 04:32: Glucometer 115H 03/13/20 03:40: White Blood Count 4.3, Red Blood Count 3.71L, Hemoglobin 10.9L, Hematocrit 35, Mean Corpuscular Volume 94, Mean Corpuscular Hemoglobin 29, Mean Corpuscular Hemoglobin Concent 31L, Red Cell Distribution Width 17.6H, Platelet Count 128L, Mean Platelet Volume 9.6, Neutrophils (%) (Auto) 56, Lymphocytes (%) (Auto) 31, Monocytes (%) (Auto) 9, Eosinophils (%) (Auto) 4, Basophils (%) (Auto) 0, Neutrophils # (Auto) 2.4, Lymphocytes # (Auto) 1.3, Monocytes # (Auto) 0.4, Eosinophils # (Auto) 0.2, Basophils # (Auto) 0.0, Sodium Level 137, Potassium Level 3.7, Chloride Level 103, Carbon Dioxide Level 26, Anion Gap 8, Blood Urea Nitrogen 13, Creatinine 0.59L, Estimat Glomerular Filtration Rate > 60, BUN/Creatinine Ratio 22, Glucose Level 106H, Calcium Level 8.0L, Corrected Calcium 9.3, Total Bilirubin 0.4, Aspartate Amino Transf (AST/SGOT) 37H, Alanine Aminotransferase (ALT/SGPT) 30, Alkaline Phosphatase 109, Total Protein 6.0L, Albumin 2.4L 03/14/20 04:35: Glucometer 108 03/15/20 05:30: Glucometer 93 Pending Labs Laboratory Tests 02/25/20 20:18: Glucometer 237 02/26/20 06:10: Glucometer 166, White Blood Count 11.3, Red Blood Count 4.56, Hemoglobin 13.4, Hematocrit 44, Mean Corpuscular Volume 95, Mean Corpuscular Hemoglobin 29, Mean Corpuscular Hemoglobin Concent 31, Red Cell Distribution Width 15.4, Platelet Count 372, Mean Platelet Volume 10.7, Neutrophils (%) (Auto) 80, Lymphocytes (%) (Auto) 15, Monocytes (%) (Auto) 4, Eosinophils (%) (Auto) 1, Basophils (%) (Auto) 0, Neutrophils # (Auto) 9.1, Lymphocytes # (Auto) 1.6, Monocytes # (Auto) 0.5, Eosinophils # (Auto) 0.1, Basophils # (Auto) 0.0, Sodium Level 139, Potassium Level 3.3, Chloride Level 92, Carbon Dioxide Level 35, Anion Gap 12, Blood Urea Nitrogen 36, Creatinine 0.79, Estimat Glomerular Filtration Rate > 60, BUN/Creatinine Ratio 46, Glucose Level 170, Calcium Level 9.1, Corrected Calcium 9.8, Total Bilirubin 0.5, Aspartate Amino Transf (AST/SGOT) 37, Alanine Aminotransferase (ALT/SGPT) 125, Alkaline Phosphatase 231, Total Protein 7.9, Albumin 3.1 02/26/20 10:41: Glucometer 206 02/26/20 16:03: Glucometer 232 02/26/20 20:03: Glucometer 198 02/27/20 05:21: White Blood Count 11.5, Red Blood Count 4.59, Hemoglobin 13.5, Hematocrit 44, Mean Corpuscular Volume 95, Mean Corpuscular Hemoglobin 29, Mean Corpuscular Hemoglobin Concent 31, Red Cell Distribution Width 15.3, Platelet Count 349, Mean Platelet Volume 10.7, Neutrophils (%) (Auto) 83, Lymphocytes (%) (Auto) 12, Monocytes (%) (Auto) 5, Eosinophils (%) (Auto) 0, Basophils (%) (Auto) 0, N eutrophils # (Auto) 9.5, Lymphocytes # (Auto) 1.4, Monocytes # (Auto) 0.6, Eosinophils # (Auto) 0.1, Basophils # (Auto) 0.0, Sodium Level 137, Potassium Level 3.7, Chloride Level 93, Carbon Dioxide Level 33, Anion Gap 11, Blood Urea Nitrogen 34, Creatinine 0.73, Estimat Glomerular Filtration Rate > 60, BUN/Creatinine Ratio 47, Glucose Level 198, Calcium Level 9.0, Corrected Calcium 9.7, Total Bilirubin 0.5, Aspartate Amino Transf (AST/SGOT) 33, Alanine Aminotransferase (ALT/SGPT) 97, Alkaline Phosphatase 213, Total Protein 7.7, Albumin 3.1 02/27/20 10:31: Glucometer 163 02/27/20 16:13: Glucometer 210 02/27/20 20:15: Glucometer 194 02/28/20 05:25: White Blood Count 11.5, Red Blood Count 4.60, Hemoglobin 13.8, Hematocrit 44, Mean Corpuscular Volume 95, Mean Corpuscular Hemoglobin 30, Mean Corpuscular Hemoglobin Concent 32, Red Cell Distribution Width 15.9, Platelet Count 352, Mean Platelet Volume 11.0, Neutrophils (%) (Auto) 79, Lymphocytes (%) (Auto) 14, Monocytes (%) (Auto) 6, Eosinophils (%) (Auto) 1, Basophils (%) (Auto) 0, Neutrophils # (Auto) 9.0, Lymphocytes # (Auto) 1.7, Monocytes # (Auto) 0.7, Eosinophils # (Auto) 0.1, Basophils # (Auto) 0.0, Erythrocyte Sedimentation Rate 63, Sodium Level 139, Potassium Level 3.6, Chloride Level 95, Carbon Dioxide Level 35, Anion Gap 9, Blood Urea Nitrogen 31, Creatinine 0.73, Estimat Glomerular Filtration Rate > 60, BUN/Creatinine Ratio 42, Glucose Level 153, Calcium Level 8.9, Corrected Calcium 9.6, Iron Level 73, Total Bilirubin 0.5, Aspartate Amino Transf (AST/SGOT) 30, Alanine Aminotransferase (ALT/SGPT) 79, Al kaline Phosphatase 204, Total Protein 7.8, Albumin 3.1, Vitamin B12 Level >2000, Procalcitonin 0.03 02/28/20 07:22: Glucometer 188 02/28/20 10:59: Glucometer 171 02/28/20 15:36: Glucometer 259 02/28/20 18:34: Glucometer 228 02/28/20 20:10: Glucometer 186 02/29/20 06:21: Glucometer 129 02/29/20 10:45: Glucometer 189 02/29/20 15:34: Glucometer 234 02/29/20 20:07: Glucometer 146 03/01/20 05:20: Glucometer 173 03/01/20 11:16: Glucometer 226 03/01/20 15:22: Glucometer 211 03/01/20 20:15: Glucometer 107 03/02/20 05:08: White Blood Count 13.6, Red Blood Count 4.35, Hemoglobin 13.1, Hematocrit 41, Mean Corpuscular Volume 93, Mean Corpuscular Hemoglobin 30, Mean Corpuscular Hemoglobin Concent 32, Red Cell Distribution Width 16.0, Platelet Count 300, Mean Platelet Volume 10.7, Neutrophils (%) (Auto) 78, Lymphocytes (%) (Auto) 12, Monocytes (%) (Auto) 9, Eosinophils (%) (Auto) 1, Basophils (%) (Auto) 0, Neutrophils # (Auto) 10.6, Lymphocytes # (Auto) 1.7, Monocytes # (Auto) 1.2, Eosinophils # (Auto) 0.2, Basophils # (Auto) 0.0, Sodium Level 136, Potassium Level 2.9, Chloride Level 92, Carbon Dioxide Level 31, Anion Gap 13, Blood Urea Nitrogen 29, Creatinine 0.75, Estimat Glomerular Filtration Rate > 60, BUN/Creatinine Ratio 39, Glucose Level 155, Calcium Level 9.0, Corrected Calcium 9.7, Total Bilirubin 0.6, Aspartate Amino Transf (AST/SGOT) 34, Alanine Aminotransferase (ALT/SGPT) 56, Alkaline Phosphatase 170, Total Protein 7.6, Albumin 3.1 03/02/20 10:47: Glucometer 219 03/02/20 15:25: Glucometer 194 03/02/20 20:11: Glucometer 136 03/03/20 05:00: Glucometer 133 03/03/20 10:51: Glucometer 195 03/03/20 15:42: Glucometer 150 03/03/20 20:08: Glucometer 159 03/04/20 05:41: Glucometer 170 03/04/20 10:28: Glucometer 165 03/04/20 16:40: Glucometer 202 03/04/20 20:04: Glucometer 130 03/05/20 05:10: Glucometer 108 03/05/20 10:28: Glucometer 92 03/05/20 15:28: Glucometer 133 03/06/20 04:30: White Blood Count 6.1, Red Blood Count 3.83, Hemoglobin 11.4, Hematocrit 36, Mean Corpuscular Volume 94, Mean Corpuscular Hemoglobin 30, Mean Corpuscular Hemoglobin Concent 32, Red Cell Distribution Width 16.8, Platelet Count 174, Mean Platelet Volume 10.5, Neutrophils (%) (Auto) 68, Lymphocytes (%) (Auto) 21, Monocytes (%) (Auto) 7, Eosinophils (%) (Auto) 4, Basophils (%) (Auto) 0, Neutrophils # (Auto) 4.2, Lymphocytes # (Auto) 1.3, Monocytes # (Auto) 0.4, Eosinophils # (Auto) 0.3, Basophils # (Auto) 0.0, Sodium Level 138, Potassium Level 3.2, Chloride Level 97, Carbon Dioxide Level 31, Anion Gap 10, Blood Urea Nitrogen 18, Creatinine 0.63, Estimat Glomerular Filtration Rate > 60, BUN/Creatinine Ratio 29, Glucose Level 93, Calcium Level 8.5, Corrected Calcium 9.5, Total Bilirubin 0.5, Aspartate Amino Transf (AST/SGOT) 33, Alanine Aminotransferase (ALT/SGPT) 39, Alkaline Phosphatase 150, Total Protein 6.5, Albumin 2.7 03/06/20 10:45: Glucometer 144 03/06/20 15:49: Glucometer 132 03/06/20 19:58: Glucometer 153 03/07/20 05:20: Glucometer 115 03/07/20 10:56: Glucometer 126 03/08/20 05:09: Glucometer 101 03/09/20 05:41: Glucometer 117 03/10/20 05:05: Glucometer 95 03/11/20 06:32: Glucometer 105 03/12/20 04:32: Glucometer 115 03/13/20 03:40: White Blood Count 4.3, Red Blood Count 3.71, Hemoglobin 10.9, Hematocrit 35, Mean Corpuscular Volume 94, Mean Corpuscular Hemoglobin 29, Mean Corpuscular Hemoglobin Concent 31, Red Cell Distribution Width 17.6, Platelet Count 128, Mean Platelet Volume 9.6, Neutrophils (%) (Auto) 56, Lymphocytes (%) (Auto) 31, Monocytes (%) (Auto) 9, Eosinophils (%) (Auto) 4, Basophils (%) (Auto) 0, Neutrophils # (Auto) 2.4, Lymphocytes # (Auto) 1.3, Monocytes # (Auto) 0.4, Eosinophils # (Auto) 0.2, Basophils # (Auto) 0.0, Sodium Level 137, Potassium Level 3.7, Chloride Level 103, Carbon Dioxide Level 26, Anion Gap 8, Blood Urea Nitrogen 13, Creatinine 0.59, Estimat Glomerular Filtration Rate > 60, BUN/Creatinine Ratio 22, Glucose Level 106, Calcium Level 8.0, Corrected Calcium 9.3, Total Bilirubin 0.4, Aspartate Amino Transf (AST/SGOT) 37, Alanine Aminotransferase (ALT/SGPT) 30, Alkaline Phosphatase 109, Total Protein 6.0, Albumin 2.4 03/14/20 04:35: Glucometer 108 03/15/20 05:30: Glucometer 93 Discharge Home Medications: Active Scripts Active Oxycodone IR (Oxycodone HCl) 5 Mg Tablet 10 Mg PO Q4H PRN Oxycontin (Oxycodone HCl) 10 Mg Tab.er.12h 10 Mg PO Q12H Levaquin (Levofloxacin) 750 Mg Tablet 750 Mg PO DAILY 14 Days Melatonin 3 Mg Tablet 3 Mg PO HS PRN 30 Days Vitamin A & D Ointment (Vitamin A & D) 60 Gm Oint 0 Gm TOP BID 30 Days [Lidocaine 4% Patch] 1 EA Patch 1 Ea TOP DAILY 30 Days Levemir (Insulin Determir) 1,000 Units/10 Ml Soln 10 Unit SQ HS 30 Days Acidophilus-Pectin Capsule (Lactobacillus Acidophilus/Pect) 1 Each Capsule 2 Each PO TIDWM 30 Days Pantoprazole Sodium 40 Mg Tablet.dr 40 Mg PO DAILY 30 Days Ondansetron Odt (Ondansetron) 4 Mg Tab.rapdis 4 Mg PO Q6H PRN 30 Days Senna-Time S Tablet (Sennosides/Docusate Sodium) 1 Each Tablet 1 Ea PO BID 30 Days Enoxaparin Sodium 60 Mg/0.6 Ml Syringe 60 Mg SC Q12HR 30 Days Baclofen 10 Mg Tablet 10 Mg PO Q6HR PRN 30 Days Xanax (Alprazolam) 0.25 Mg Tablet 0.5 Mg PO HS PRN MDD 4 TABS 24 HOURS CAN TAKE 1 TAB EVERY 8 HOURS DURING THE DAY- IF THE PT HAS NOT HAD MORE THEN 2 DOSES DURING THE DAY THEN PT CAN HAVE 2 TABS AT BEDTIME. MAY NOT EXCEED 4 TABS PER 24 HOURS Ropinirole HCl 1 Mg Tablet 1 Mg PO HS 30 Days Reported Vitamin D3 (Cholecalciferol (Vitamin D3)) 50 Mcg Capsule 50 Mcg PO DAILY Torsemide 100 Mg Tablet 50 Mg PO BID TAKES TAB OF 100MG TO EQUAL 50MG TWICE DAILY Topiramate 25 Mg Tablet 25 Mg PO DAILY Potassium Chloride 20 Meq Tablet.er 20 Meq PO DAILY Multivitamins (Multivitamin) 1 Each Tablet 1 Each PO DAILY Miralax (Polyethylene Glycol 3350) 17 Gm Powd.pack 17 Gm PO DAILY Colace (Docusate Sodium) 100 Mg Capsule 100 Mg PO BID Celebrex (Celecoxib) 400 Mg Capsule 400 Mg PO DAILY Calcium 600 + Vit D 200 Tablet (Calcium Carbonate/Vitamin D3) 1 Each Tablet 1 Each PO DAILY Vitamin B-1 (Thiamine HCl) 250 Mg Tablet 250 Mg PO DAILY Atorvastatin Calcium 40 Mg Tablet 40 Mg PO DAILY Zonisamide 100 Mg Capsule 200 Mg PO BID TAKES 2 (100MG) CAPS TO EQUAL 200MG TWICE DAILY Aripiprazole 5 Mg Tablet 5 Mg PO DAILY Venlafaxine HCl 75 Mg Tab 75 Mg PO QID Alprazolam 0.25 Mg Tablet 0.25 Mg PO Q8H PRN MDD 4 TABS IN 24 HOURS CAN TAKE 1 TAB EVERY 8 HOURS DURING THE DAY- IF THE PT HAS NOT HAD MORE THEN 2 DOSES DURING THE DAY THEN PT CAN HAVE 2 TABS AT BEDTIME. MAY NOT EXCEED 4 TABS PER 24 HOURS Vitamin D2 (Ergocalciferol (Vitamin D2)) 1,250 Mcg Capsule 1,250 Mcg PO SUE HORN Gabapentin 300 Mg Capsule 300 Mg PO TID Metformin HCl 500 Mg Tablet 250 Mg PO DAILY TAKES OF A 500MG TAB DAILY Instructions to patient/family Please see electronic discharge instructions given to patient. Diagnosis/Problems Diagnosis/Problems (1) Paraplegia at T9 level (2) Acute osteomyelitis of spine Status: Acute (3) Romero catheter in place (4) Neurogenic bladder (5) Chronic mental illness (6) Depression (7) H/O gastric bypass (8) Fecal incontinence (9) Acute respiratory failure with hypoxia Status: Acute (10) T2DM (type 2 diabetes mellitus) Status: Chronic (11) Paresthesia of both legs Status: Acute (12) RLS (restless legs syndrome) Status: Chronic (13) Elevated liver function tests Status: Acute (14) HLD (hyperlipidemia) Status: Chronic (15) HTN (hypertension) Status: Chronic (16) Morbid obesity Status: Chronic (17) Shortness of breath Status: Acute (18) Hypoxia Status: Acute Clinical Quality Measures DVT/VTE Risk/Contraindication: Risk Factor Score Per Nursin RFS Level Per Nursing on Admit: 4+=Very High KATELYN JENSEN DO Mar 15, 2020 10:43
--- NOTE | 2020-03-15 12:44 | NUR ---
CM/SS DISCHARGE Patient discharged to new Medicare skilled placement with S[facility] via their transport scheduled for 1300. [facility] understands to bring bariatric wheelchair and laura lift sheet. Retail Sales Associate indicates patient's room there is set up to receive her, including night O2. Patient has been contacting her family with updates. IMM2 presented, signed, charted to patient this a.m. Patient has participated fully in this discharge plan over the past week. Faxed continuum of care information to [facility], along with Covid19 Assessment for Hospital to Post Acute Care Facility Transfer. Packet prepared to accompany patient. Unit RN's updated of timelines, [facility] staff to contact RN phone upon arrival. Staff will get wheelchair and lift sheet, bring to patient for exchange, then take patient down, all due to Covid19 protocols regarding hospital access. Addendum: 03/15/20 at 1344 by MAURY LOYOLA Faxed discharge summary to PCP Dr. Thad Gifford at [facility].
[2020-03-15] MEDS: ALPRAZolam 0.25 MG (XANAX) TAB PO PRN (12:56)
--- NOTE | 2020-03-15 13:30 | NUR ---
PICC LINE D/C BY SAMIRA SANTOS, CATHETER LENGTH 42CM, CATHETER INTACT, PT TOLERATED WELL.
--- NOTE | 2020-03-15 14:23 | Therapy Team Discharge Summary ---
Therapy Discharge Summary Discharge Recommendations Date of Discharge 03/15/2020 Therapy D/C Recommendations: Long Term (TCU/NH) (PT) Physical Therapy This patient admitted to ARU post acute hospital stay due to decreased functional mobiltiy associated with paraplegia; in addition, she was admitted with dx of debility. Prior to February 13, 2020, she was mod indep with functional mobiltiy and living with family. Since that time, she was experiencing paraplegia. Upon admission to ARU she was dependent for all bed mobilty and relied upon a laura lift for transfers. Treatment focused on functional strength and mobility to facilitate interaction within her environment. She remains at a dependent level of mobility upon discharge; she is dependent for bed mobility and requires a laura to get in/out of bed/chair. She is min assist with wc mobility x 50 ft. She would benefit from continued skilled therapy services to address bed mobility and wc skills to promote interaction within her environment. Will DC from ARU this date. Occupational Therapy Decreased Activ Tolerance, Decreased UE Strength, Dependent Transfers, Impaired I ADL's, Impaired Self-Care Skills PT Mobile Marketing Manager Goals Half-Way Goals PT Half-Way Goals Time Frame: Mar 17, 2020 Roll Left to Right (QC): 2 Sit to Lying (QC): 88 Lying-Sitting on Side/Bed(QC): 88 Sit to Stand (QC): 88 Chair/Kil-re-Zzjxf Xfer(QC): 88 Car Transfer (QC): 88 Does the Patient Walk: No and Walking Goal NOT indicated Walk 10 feet (QC): 88 Walk 10ft-Uneven Surface(QC): 88 Walk 50ft with 2 Turns (QC): 88 Walk 150 ft (QC): 88 Wheel 50 feet with 2 turns (QC: 4 1 Step (curb) (QC): 88 4 Steps (QC): 88 12 Steps (QC): 88 Picking up an Object (QC): 88 OT Half-Way Goals Mobile Marketing Manager Goals Time Frame: Mar 17, 2020 Eating (QC): 6 Oral Hygiene (QC): 6 Shower/Bathe Self (QC): 4 Upper Body Dressing (QC): 5 Lower Body Dressing (QC): 3 On/Off Footwear (QC): 6 Toileting Hygiene (QC): 4 Toilet/Commode Transfer (QC): 88 Additional Goals: 1-Demonstrate ADL Tasks, 2-Verbalize Understanding, 3- ImproveStrength/Regulo 1=Demonstrate adherence to instructed precautions during ADL tasks. 2=Patient will verbalize/demonstrate understanding of assistive d evices/modifications for ADL. 3=Patient will improve strength/tolerance for activity to enable patient to perform ADL's. BECKY HALL PT Mar 15, 2020 14:23
== END 2020-03-15 13:40 | DRG 52 ==
PROVIDERS: ADMIT Internal Medicine; ATTEND Internal Medicine
DX: G82.20 Paraplegia, unspecified (principal); M46.24 Osteomyelitis of vertebra, thoracic region; G95.29 Other cord compression; N31.9 Neuromuscular dysfunction of bladder, unspecified; R32 Unspecified urinary incontinence; R15.9 Full incontinence of feces; R33.9 Retention of urine, unspecified; E66.2 Morbid (severe) obesity with alveolar hypoventilation; Z68.43 Body mass index [BMI] 50.0-59.9, adult; E78.00 Pure hypercholesterolemia, unspecified; I10 Essential (primary) hypertension; K21.9 Gastro-esophageal reflux disease without esophagitis; E11.9 Type 2 diabetes mellitus without complications; F41.9 Anxiety disorder, unspecified; F31.9 Bipolar disorder, unspecified; Z98.84 Bariatric surgery status
CPT/HCPCS: 36415; 36569; 76937; 80053; 82607; 82962; 83540; 84145; 85025; 85652; 94640; 94760; 94762

== ENCOUNTER 2020-03-31 11:50 | Inpatient (IN) | payer MEDICARE ==
[2020-03-31] VITALS (8 sets, daily range): BP systolic 53–123; BP diastolic 43–96
[~2020-03-31] VITALS: Ht 162.5 cm; Wt 152.7 kg
[~2020-03-31 11:50] MED LIST changes: +AD60O TOP; +BACL10TA PO; +ENOX60DI7 SC; +INSU100V5 SQ; +LACT1CAP7 PO; +LEVO750T9 PO; +Lidocaine 4% Patch TOP; +MELA3TAB39 PO; +ONDA4TAB11 PO; +OXYC10TA55 PO; +OXYC5TAB96 PO; +PANT40TA3 PO; +SENN-20 PO
--- OUTSIDE RECORDS SUMMARY | 2020-03-31 12:09 | XMS REPORT | Continuity of Care Document ---
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 10/29/2019 EDUARDO FISHER MD, Ot I89 .0 LYMPHEDEMA, NOT ELSEWHERE CLASSIFIED 10/29/2019 EDUARDO FISHER MD, Ot 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 ULCER OF RIGHT CALF 11/03/2019 EDUARDO FISHER MD, Ot E11.622 TYPE 2 DIABETES MELLITUS WITH OTHER SKIN 11/03/2019 EDUARDO FISHER MD, Ot E66.01 MORBID (SEVERE) OBESITY DUE TO EXCESS CA 11/03/2019 EDUARDO FISHER MD, Ot 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 11/03/2019 [...] 11/26/2019 EDUARDO FISHER MD, Ot 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 11/26/2019 EDUARDO FISHER MD, Ot I89 .0 LYMPHEDEMA, NOT ELSEWHERE CLASSIFIED 11/26/2019 EDUARDO FISHER MD, Ot 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 ULCER OF RIGHT CALF 11/26/2019 EDUARDO FISHER MD, Ot E11.622 TYPE 2 DIABETES MELLITUS WITH OTHER SKIN 11/26/2019 EDUARDO FISHER MD, Ot E66.01 MORBID (SEVERE) OBESITY DUE TO EXCESS CA 11/26/2019 EDUARDO FISHER MD, Ot 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 11/26/2019 [...] 11/29/2019 EDUARDO FISHER MD, Ot 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 11/29/2019 [...] 01/16/2020 EDUARDO FISHER MD Ot 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 01/16/2020 EDUARDO FISHER MD, Ot I89 .0 LYMPHEDEMA, NOT ELSEWHERE CLASSIFIED 01/16/2020 EDUARDO FISHER MD Ot 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 ULCER OF RIGHT CALF 01/16/2020 EDUARDO FISHER MD, Ot E11.622 TYPE 2 DIABETES MELLITUS WITH OTHER SKIN 01/16/2020 EDUARDO FISHER MD, Ot E66.01 MORBID (SEVERE) OBESITY DUE TO EXCESS CA 01/16/2020 EDUARDO FISHER MD Ot 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 01/16/2020 [...] 01/16/2020 EDUARDO FISHER MD Ot 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 01/16/2020 EDUARDO FISHER MD, Ot I89 .0 LYMPHEDEMA, NOT ELSEWHERE CLASSIFIED 01/16/2020 EDUARDO FIHSER MD, Ot 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 ULCER OF [...] 02/17/2020 EDUARDO FISHER MD Ot 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 02/17/2020 EDUARDO FISHER MD, Ot I89 .0 LYMPHEDEMA, NOT ELSEWHERE CLASSIFIED 02/17/2020 EDUARDO FISHER MD, Ot 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 ULCER OF RIGHT CALF 02/17/2020 EDUARDO FISHER MD, Ot E11.622 TYPE 2 DIABETES MELLITUS WITH OTHER SKIN 02/17/2020 EDUARDO FISHER MD, Ot E66.01 MORBID (SEVERE) OBESITY DUE TO EXCESS CA 02/17/2020 EDUARDO FISHER MD Ot 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 02/17/2020 [...] 02/17/2020 EDUARDO FISHER MD Ot 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 02/17/2020 [...] 02/25/2020 Ot Z88.8 SERGEI RGY STATUS TO [facility] DRUG/MEDS/BIOL SUB 02/25/2020 JENSEN DO, KATELYN Ot E11.69 TYPE 2 DIABETES MELLITUS WITH OTHER SPEC 02/25/2020 JENSEN DO, KATELYN Ot E11.9 TYPE 2 DIABETES MELLITUS WITHOUT COMPLIC 02/25/2020 JENSEN DO, KATELYN Ot E66.01 MORBID (SEVERE) OBESITY DUE TO EXCESS CA 02/25/2020 JENSEN DO, KATELYN Ot E78.00 PURE HYPERCHOLESTEROLEMIA, UNSPECIFIED 02/25/2020 JENSEN DO, KATELYN Ot F32.9 MAJOR DEPRESSIVE DISORDER, SINGLE EPISOD 02/25/2020 JENSEN DO, KATELYN Ot F41.9 ANXIETY DISORDER, UNSPECIFIED 02/25/2020 JENSEN DO, KATELYN Ot G25.81 RESTLESS LEGS SYNDROME 02/25/2020 JENSEN DO, KATELYN Ot G83.9 PARALYTIC SYNDROME, UNSPECIFIED 02/25/2020 JENSEN DO, KATELYN Ot I10 ESSENTIAL (PRIMARY) HYPERTENSION 02/25/2020 JENSEN DO, KATELYN Ot J18.9 PNEUMONIA, UNSPECIFIED ORGANISM 02/25/2020 JENSEN DO, KATELYN Ot J90 PLEURAL EFFUSION, NOT ELSEWHERE CLASSIFI 02/25/2020 JENSEN DO, KATELYN Ot J96.01 ACUTE RESPIRATORY FAILURE WITH HYPOXIA 02/25/2020 JENSEN DO, KATELYN Ot J98.11 ATELECTASIS 02/25/2020 MIKEY RIOS, KATELYN Ot K21.9 GASTRO-ESOPHAGEAL REFLUX DISEASE WITHOUT 02/25/2020 JENSEN DO, KATELYN Ot 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, THORACIC SALVADOR 02/25/2020 MIKEY RIOS, KATELYN Ot M54.42 LUMBAGO WITH SCIATICA, LEFT SIDE 02/25/2020 JENSEN DO, KATELYN Ot M62.81 MUSCLE WEAKNESS (GENERALIZED) 02/25/2020 JENSEN DO, KATELYN Ot R06.2 WHEEZING 02/25/2020 JENSEN DO, KATELYN Ot R07.89 OTHER CHEST PAIN 02/25/2020 JENSEN DO, KATELYN Ot R20.2 PARESTHESIA OF SKIN 02/25/2020 MIKEY RIOS, KATELYN Ot R26.2 DIFFICULTY IN WALKING, NOT ELSEWHERE CLA 02/25/2020 MIKEY RIOS KATELYN Ot R32 UNSPECIFIED URINARY INCONTINENCE 02/25/2020 MIKEY RIOS KATELYN Ot R60.9 EDEMA, UNSPECIFIED 02/25/2020 MIKEY RIOS KATELYN Ot Z03.81 8 ENCNTR FOR OBS FOR SUSP EXPSR TO OTH BIO 02/25/2020 MIKEY RIOS KATELYN Ot Z68.43 BODY MASS INDEX (BMI) 50.0-59.9, ADULT 02/25/2020 MIKEY RIOS KATELYN Ot Z79.1 HALF-WAY (CURRENT) USE OF NON-STEROIDAL 02/25/2020 IMKEY RIOS KATELYN Ot Z87.89 1 PERSONAL HISTORY OF NICOTINE DEPENDENCE 02/25/2020 MIKEY RIOS KATELYN Ot Z98.84 BARIATRIC SURGERY STATUS 03/06/2020 MIKEY RIOS KATELYN Ot E11.9 TYPE 2 DIABETES MELLITUS WITHOUT COMPLIC 03/06/2020 MIKEY RIOS KATELYN Ot E66.2 MORBID (SEVERE) OBESITY WITH ALVEOLAR HY 03/06/2020 MIKEY RIOS KATELYN Ot E78.00 PURE HYPERCHOLESTEROLEMIA, UNSPECIFIED 03/06/2020 MIKEY RIOS, KATELYN Ot F31.9 BIPOLAR DISORDER, UNSPECIFIED 03/06/2020 MIKEY RIOS KATELYN Ot F41.9 ANXIETY DISORDER, UNSPECIFIED 03/06/2020 MIKEY RIOS KATELYN Ot G47.30 SLEEP APNEA, UNSPECIFIED 03/06/2020 JENSEN DO, KATELYN Ot G82.20 PARAPLEGIA, UNSPECIFIED 03/06/2020 JENSEN DO, KATELYN Ot G95.29 OTHER CORD COMPRESSION 03/06/2020 JENSEN DO, KATELYN Ot I10 ESSENTIAL (PRIMARY) HYPERTENSION 03/06/2020 JENSEN DO, KATELYN Ot K21.9 GASTRO-ESOPHAGEAL REFLUX DISEASE WITHOUT 03/06/2020 JENSEN DO, KATELYN Ot 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, THORACIC SALVADOR 03/06/2020 JENSEN DO, KATELYN Ot N31.9 NEUROMUSCULAR DYSFUNCTION OF BLADDER, UN 03/06/2020 JENSEN DO, KATELYN Ot R15.9 FULL INCONTINENCE OF FECES 03/06/2020 JENSEN DO, KATELYN Ot R32 UNSPECIFIED URINARY INCONTINENCE 03/06/2020 JENSEN DO, KATELYN Ot R33.9 RETENTION OF URINE, UNSPECIFIED 03/06/2020 JENSEN DO, KATELYN Ot Z68.43 BODY MASS INDEX (BMI) 50.0-59.9, ADULT 03/06/2020 JENSEN DO, KATELYN Ot Z98.84 BARIATRIC SURGERY STATUS 03/12/2020 JENSEN DO, KATELYN Ot E11.9 TYPE 2 DIABETES MELLITUS WITHOUT COMPLIC 03/12/2020 JENSEN DO, KATELYN Ot E66.2 MORBID (SEVERE) OBESITY WITH ALVEOLAR HY 03/12/2020 JENSEN DO, KATELYN Ot E78.00 PURE HYPERCHOLESTEROLEMIA, UNSPECIFIED 03/12/2020 JENSEN DO, KATELYN Ot F31.9 BIPOLAR DISORDER, UNSPECIFIED 03/12/2020 JENSEN DO, KATELYN Ot F41.9 ANXIETY DISORDER, UNSPECIFIED 03/12/2020 JENSEN DO, KATELYN Ot G47.30 SLEEP APNEA, UNSPECIFIED 03/12/2020 JENSEN DO, KATELYN Ot G82.20 PARAPLEGIA, UNSPECIFIED 03/12/2020 JENSEN DO, KATELYN Ot G95.29 OTHER CORD COMPRESSION 03/12/2020 JENSEN DO, KATELYN Ot I10 ESSENTIAL (PRIMARY) HYPERTENSION 03/12/2020 JENSEN DO, KATELYN Ot K21.9 GASTRO-ESOPHAGEAL REFLUX DISEASE WITHOUT 03/12/2020 JENSEN DO, KATELYN Ot 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, THORACIC SALVADOR 03/12/2020 JENSEN DO, KATELYN Ot N31.9 NEUROMUSCULAR DYSFUNCTION OF BLADDER, UN 03/12/2020 JENSEN DO, KATELYN Ot R15.9 FULL INCONTINENCE OF FECES 03/12/2020 JENSEN DO, KATELYN Ot R32 UNSPECIFIED URINARY INCONTINENCE 03/12/2020 JENSEN DO, KATELYN Ot R33.9 RETENTION OF URINE, UNSPECIFIED 03/12/2020 JENSEN DO, KATELYN Ot Z68.43 BODY MASS INDEX (BMI) 50.0-59.9, ADULT 03/12/2020 JENSEN DO, KATELYN Ot Z98.84 BARIATRIC SURGERY STATUS 03/13/2020 JENSEN DO, KATELYN Ot E11.9 TYPE 2 DIABETES MELLITUS WITHOUT COMPLIC 03/13/2020 JENSEN DO, KATELYN Ot E66.2 MORBID (SEVERE) OBESITY WITH ALVEOLAR HY 03/13/2020 JENSEN DO, KATELYN Ot E78.00 PURE HYPERCHOLESTEROLEMIA, UNSPECIFIED 03/13/2020 JENSEN DO, KATELYN Ot F31.9 BIPOLAR DISORDER, UNSPECIFIED 03/13/2020 JENSEN DO, KATELYN Ot F41.9 ANXIETY DISORDER, UNSPECIFIED 03/13/2020 JENSEN DO, KATELYN Ot G47.30 SLEEP APNEA, UNSPECIFIED 03/13/2020 JENSEN DO, KATELYN Ot G82.20 PARAPLEGIA, UNSPECIFIED 03/13/2020 JENSEN DO, KATELYN Ot G95.29 OTHER CORD COMPRESSION 03/13/2020 JENSEN DO, KATELYN Ot I10 ESSENTIAL (PRIMARY) HYPERTENSION 03/13/2020 JENSEN DO, KATELYN Ot K21.9 GASTRO-ESOPHAGEAL REFLUX DISEASE WITHOUT 03/13/2020 JENSEN DO, KATELYN Ot 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, THORACIC SALVADOR 03/13/2020 JENSEN DO, KATELYN Ot N31.9 NEUROMUSCULAR DYSFUNCTION OF BLADDER, UN 03/13/2020 JENSEN DO, KATELYN Ot R15.9 FULL INCONTINENCE OF FECES 03/13/2020 JENSEN DO, KATELYN Ot R32 UNSPECIFIED URINARY INCONTINENCE 03/13/2020 JENSEN DO, KATELYN Ot R33.9 RETENTION OF URINE, UNSPECIFIED 03/13/2020 JENSEN DO, KATELYN Ot Z68.43 BODY MASS INDEX (BMI) 50.0-59.9, ADULT 03/13/2020 JENSEN DO, KATELYN Ot Z98.84 BARIATRIC SURGERY STATUS 03/13/2020 JENSEN DO, KATELYN Ot E11.9 TYPE 2 DIABETES MELLITUS WITHOUT COMPLIC 03/13/2020 JENSEN DO, KATELYN Ot E66.2 MORBID (SEVERE) OBESITY WITH ALVEOLAR HY 03/13/2020 JENSEN DO, KATELYN Ot E78.00 PURE HYPERCHOLESTEROLEMIA, UNSPECIFIED 03/13/2020 JENSEN DO, KATELYN Ot F31.9 BIPOLAR DISORDER, UNSPECIFIED 03/13/2020 JENSEN DO, KATELYN Ot F41.9 ANXIETY DISORDER, UNSPECIFIED 03/13/2020 JENSEN DO, KATELYN Ot G47.30 SLEEP APNEA, UNSPECIFIED 03/13/2020 JENSEN DO, KATELYN Ot G82.20 PARAPLEGIA, UNSPECIFIED 03/13/2020 JENSEN DO, KATELYN Ot G95.29 OTHER CORD COMPRESSION 03/13/2020 JENSEN DO, KATELYN Ot I10 ESSENTIAL (PRIMARY) HYPERTENSION 03/13/2020 JENSEN DO, KATELYN Ot K21.9 GASTRO-ESOPHAGEAL REFLUX DISEASE WITHOUT 03/13/2020 JENSEN DO, KATELYN Ot 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, THORACIC SALVADOR 03/13/2020 JENSEN DO, KATELYN Ot N31.9 NEUROMUSCULAR DYSFUNCTION OF BLADDER, UN 03/13/2020 JENSEN DO, KATELYN Ot R15.9 FULL INCONTINENCE OF FECES 03/13/2020 JENSEN DO, KATELYN Ot R32 UNSPECIFIED URINARY INCONTINENCE 03/13/2020 JENSEN DO, KATELYN Ot R33.9 RETENTION OF URINE, UNSPECIFIED 03/13/2020 JENSEN DO, KATELYN Ot Z68.43 BODY MASS INDEX (BMI) 50.0-59.9, ADULT 03/13/2020 JENSEN DO, KATELYN Ot Z98.84 BARIATRIC SURGERY STATUS 03/14/2020 JENSEN DO, KATELYN Ot E11.9 TYPE 2 DIABETES MELLITUS WITHOUT COMPLIC 03/14/2020 JENSEN DO, KATELYN Ot E66.2 MORBID (SEVERE) OBESITY WITH ALVEOLAR HY 03/14/2020 JENSEN DO, KATELYN Ot E78.00 PURE HYPERCHOLESTEROLEMIA, UNSPECIFIED 03/14/2020 JENSEN DO, KATELYN Ot F31.9 BIPOLAR DISORDER, UNSPECIFIED 03/14/2020 JENSEN DO, KATELYN Ot F41.9 ANXIETY DISORDER, UNSPECIFIED 03/14/2020 JENSEN DO, KATELYN Ot G47.30 SLEEP APNEA, UNSPECIFIED 03/14/2020 JENSEN DO, KATELYN Ot G82.20 PARAPLEGIA, UNSPECIFIED 03/14/2020 JENSEN DO, KATELYN Ot G95.29 OTHER CORD COMPRESSION 03/14/2020 JENSEN DO, KATELYN Ot I10 ESSENTIAL (PRIMARY) HYPERTENSION 03/14/2020 JENSEN DO, KATELYN Ot K21.9 GASTRO-ESOPHAGEAL REFLUX DISEASE WITHOUT 03/14/2020 JENSEN DO, KATELYN Ot 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, THORACIC SALVADOR 03/14/2020 JENSEN DO, KATELYN Ot N31.9 NEUROMUSCULAR DYSFUNCTION OF BLADDER, UN 03/14/2020 JENSEN DO, KATELYN Ot R15.9 FULL INCONTINENCE OF FECES 03/14/2020 JENSEN DO, KATELYN Ot R32 UNSPECIFIED URINARY INCONTINENCE 03/14/2020 JENSEN DO, KATELYN Ot R33.9 RETENTION OF URINE, UNSPECIFIED 03/14/2020 JENSEN DO, KATELYN Ot Z68.43 BODY MASS INDEX (BMI) 50.0-59.9, ADULT 03/14/2020 JENSEN DO, KATELYN Ot Z98.84 BARIATRIC SURGERY STATUS 03/15/2020 JENSEN DO, KATELYN Ot E11.9 TYPE 2 DIABETES MELLITUS WITHOUT COMPLIC 03/15/2020 JENSEN DO, KATELYN Ot E66.2 MORBID (SEVERE) OBESITY WITH ALVEOLAR HY 03/15/2020 JENSEN DO, KATELYN Ot E78.00 PURE HYPERCHOLESTEROLEMIA, UNSPECIFIED 03/15/2020 JENSEN DO, KATELYN Ot F31.9 BIPOLAR DISORDER, UNSPECIFIED 03/15/2020 JENSEN DO, KATELYN Ot F41.9 ANXIETY DISORDER, UNSPECIFIED 03/15/2020 JENSEN DO, KATELYN Ot G82.20 PARAPLEGIA, UNSPECIFIED 03/15/2020 JENSEN DO, KATELYN Ot G95.29 OTHER CORD COMPRESSION 03/15/2020 JENSEN DO, AKTELYN Ot I10 ESSENTIAL (PRIMARY) HYPERTENSION 03/15/2020 JENSEN DO, KATELYN Ot K21.9 GASTRO-ESOPHAGEAL REFLUX DISEASE WITHOUT 03/15/2020 JENSEN DO, KATELYN Ot 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 Results Test [...] INFLUENZA A AND B ANTIGENS BY IA [facility] Comprehensive metabolic panel - 02/12/20 10:12 Serum [...] A AND B ANTIGENS BY IA NRG Manual absolute plasma cell count - 01/29 08/20 19:15 Blood monocytes/100 leukocytes 2 % NRG Manual blood segmented neutrophils/100 leukocytes 87 % NRG Blood band neutrophils/100 leukocytes 2 % NRG Manual blood lymphocytes/100 leukocytes 7 % NRG Manual eosinophils/100 leukocytes in nose 2 % NRG Manual blood basophils/100 leukocytes 0 % NRG Comprehensive metabolic panel - 02/17/20 19:15 Serum [...] - 02/17/20 21:2 0 Bacterial throat culture [id number] NRG FREE TEXT EXTERNAL PLUS NORMAL WONG NR G QUANTITY OF GROWTH Abundant Growth NRG FREE TEXT EXTERNAL 2 NO BETA STREP ISOLATED NRG FREE TEXT EXTERNAL 3 METHICILLIN SUSCEPTIBILE STAP H AUREUS NRG FREE TEXT ENTRY 4 SCREENING AT [facility] 02/19/10 8:30 NRG Complete blood count (CBC) [...] Non-Reactive Serum hepatitis C virus antibody detection Non-[place] ctive Non-Reactive Capillary blood glucose measurement by g lucometer (mass/volume) - 02/18/20 16:43 Capillary blood glucose measurement by glucometer (mas s/volume) 303 mg/dL 70-110 Bacterial blood culture - 02/18/20 17:02 Bacterial blood culture NG NRG Bacterial blood culture - 02/18/20 17:09 Bacterial blood culture NG NRG Bacterial blood culture - 02/18/20 17:15 QUANTITY OF GROWTH Isolated NRG Bacterial blood culture [id number] NR Capillary blood glucose measurement by g lucometer [...] measurement by g lucometer (mass/volume) - 02/22/20 05:29 Capillary blood glucose measurement by glucometer [...] mg/dL 0.1-1.0 Serum or plasma alkaline phosphatase ewsley surement (enzymatic activity/volume) 279 U/L 40-136 Serum [...] by glucometer (mas s/volume) 302 mg/dL 70-110 Capillary blood glucose measurement by g lucometer (mass/volume) - 02/25/20 16:21 Capillary blood glucose measurement by glucometer (mas s/volume) 236 mg/dL 70-110 Capillary blood glucose measurement by g lucometer (mass/volume) - 02/25/20 20:18 Capillary blood glucose measurement by glucometer (mas s/volume) 237 mg/dL 70-110 Capillary blood glucose measurement by g lucometer (mass/volume) - 02/26/20 06:10 Capillary blood glucose measurement by glucometer (mas s/volume) 166 mg/dL 70-110 Complete blood count (CBC) with automate d white blood cell (WBC) differential - 02/26/20 06:10 Blood leukocytes automated count (number/volume) 11.3 10*3/uL 4.3-11.0 Blood erythrocytes automated count (number/volume) 4.56 10*6/uL 4.35-5.85 Venous blood hemoglobin measurement (mass/volume) 13.4 g/dL 11.5-16.0 Blood hematocrit (volume fraction) 44 % 35-52 Automated erythrocyte mean corpuscular volume 95 [ foz_us] 80-99 Automated erythrocyte mean corpuscular h emoglobin (mass per erythrocyte) 29 pg 25-34 Automated erythrocyte mean corpuscular h emoglobin concentration measurement (mass/volume) 31 g/dL 32-36 Automated erythrocyte distribution width ratio 15. 4 % 10.0- 14.5 Automated blood platelet count (count/volume) 372 10*3/uL 130-400 Automated blood platelet mean volume measurement 10.7 [foz_us] 7.4-10.4 Automated blood neutrophils/100 leukocytes 80 % 42-75 Automated blood lymphocytes/100 leukocytes 15 % 12-44 Blood monocytes/100 leukocytes 4 % 0-12 Automated blood eosinophils/100 leukocytes 1 % 0-10 Automated blood basophils/100 leukocytes 0 % 0-10 Blood neutrophils automated count (number/volume) 9.1 10*3 1.8-7.8 Blood lymphocytes automated count (number/volume) 1.6 10*3 1.0-4.0 Blood monocytes automated count (number/volume) 0. 5 10*3 0.0-1.0 Automated eosinophil count 0.1 10*3/uL 0 .0-0.3 Automated blood basophil count (count/volume) 0.0 10*3/uL 0.0-0.1 Comprehensive metabolic panel - 02/26/20 06:10 Serum or plasma sodium measurement (moles/volume) 139 mmol/L 135-145 Serum or plasma potassium measurement (moles/volume) 3.3 mmol/L 3.6-5.0 Serum or plasma chloride measurement (moles/volume) 92 mmol/L 98-107 Carbon dioxide 35 mmol/L 21-32 [...] NRG Serum or plasma glucose measurement (mass/volume) 170 mg/dL 70-105 Serum or plasma calcium measurement (mass/volume) 9.1 mg/dL 8.5-10.1 Serum or plasma total bilirubin measurement (mass/volu me) 0.5 mg/dL 0.1-1.0 Serum or plasma alkaline phosphatase wesley surement (enzymatic activity/volume) 231 U/L 40-136 Serum or plasma aspartate aminotransfera se measurement (enzymatic activity/volume) 37 U/L 5-34 Serum or plasma alanine aminotransferase measurement (enzymatic activity/volume) 125 U/L 0-55 Serum or plasma protein measurement (mass/volume) 7.9 g/dL 6.4-8.2 Serum or plasma albumin measurement (mass/volume) 3.1 g/dL 3.2-4.5 CALCIUM CORRECTED 9.8 mg/dL 8.5-10.1 Capillary blood glucose measurement by g lucometer (mass/volume) - 02/26/20 10:41 Capillary blood glucose measurement by glucometer (mas s/volume) 206 mg/dL 70-110 Capillary blood glucose measurement by g lucometer (mass/volume) - 02/26/20 16:03 Capillary blood glucose measurement by glucometer (mas s/volume) 232 mg/dL 70-110 Capillary blood glucose measurement by g lucometer (mass/volume) - 02/26/20 20:03 Capillary blood glucose measurement by glucometer (mas s/volume) 198 mg/dL 70-110 Complete blood count (CBC) with automate d white blood cell (WBC) differential - 02/27/20 05:21 Blood leukocytes automated count (number/volume) 11.5 10*3/uL 4.3-11.0 Blood erythrocytes automated count (number/volume) 4.59 10*6/uL 4.35-5.85 Venous blood hemoglobin measurement (mass/volume) 13.5 g/dL 11.5-16.0 Blood hematocrit (volume fraction) 44 % 35-52 Automated erythrocyte mean corpuscular volume 95 [ foz_us] 80-99 Automated erythrocyte mean corpuscular h emoglobin (mass per erythrocyte) 29 pg 25-34 Automated erythrocyte mean corpuscular h emoglobin concentration measurement (mass/volume) 31 g/dL 32-36 Automated erythrocyte distribution width ratio 15. 3 % 10.0- 14.5 Automated blood platelet count (count/volume) 349 10*3/uL 130-400 Automated blood platelet mean volume measurement 10.7 [foz_us] 7.4-10.4 Automated blood neutrophils/100 leukocytes 83 % 42-75 Automated blood lymphocytes/100 leukocytes 12 % 12-44 Blood monocytes/100 leukocytes 5 % 0-12 Automated blood eosinophils/100 leukocytes 0 % 0-10 Automated blood basophils/100 leukocytes 0 % 0-10 Blood neutrophils automated count (number/volume) 9.5 10*3 1.8-7.8 Blood lymphocytes automated count (number/volume) 1.4 10*3 1.0-4.0 Blood monocytes automated count (number/volume) 0. 6 10*3 0.0-1.0 Automated eosinophil count 0.1 10*3/uL 0 .0-0.3 Automated blood basophil count (count/volume) 0.0 10*3/uL 0.0-0.1 Comprehensive metabolic panel - 02/27/20 05:21 Serum or plasma sodium measurement (moles/volume) 137 mmol/L 135-145 Serum or plasma potassium measurement (moles/volume) 3.7 mmol/L 3.6-5.0 Serum or plasma chloride measurement (moles/volume) 93 mmol/L 98-107 Carbon dioxide 33 mmol/L 21-32 Serum or plasma anion gap determination (moles/volume) 11 mmol/L 5-14 Serum or plasma urea nitrogen measurement (mass/volume ) 34 mg/dL 7-18 Serum or plasma creatinine measurement (mass/volume) 0.73 mg/dL 0.60-1.30 Serum or plasma urea nitrogen/creatinine mass ratio 47 NRG Serum or plasma creatinine measurement w ith calculation of estimated glomerular filtration rate > NRG Serum or plasma glucose measurement (mass/volume) 198 mg/dL 70-105 Serum or plasma calcium measurement (mass/volume) 9.0 mg/dL 8.5-10.1 Serum or plasma total bilirubin measurement (mass/volu me) 0.5 mg/dL 0.1-1.0 Serum or plasma alkaline phosphatase wesley surement (enzymatic activity/volume) 213 U/L 40-136 Serum or plasma aspartate aminotransfera se measurement (enzymatic activity/volume) 33 U/L 5-34 Serum or plasma alanine aminotransferase measurement (enzymatic activity/volume) 97 U/L 0-55 Serum or plasma protein measurement (mass/volume) 7.7 g/dL 6.4-8.2 Serum or plasma albumin measurement (mass/volume) 3.1 g/dL 3.2-4.5 CALCIUM CORRECTED 9.7 mg/dL 8.5-10.1 Capillary blood glucose measurement by g lucometer (mass/volume) - 02/27/20 10:31 Capillary blood glucose measurement by glucometer (mas s/volume) 163 mg/dL 70-110 Capillary blood glucose measurement by g lucometer (mass/volume) - 02/27/20 16:13 Capillary blood glucose measurement by glucometer (mas s/volume) 210 mg/dL 70-110 Capillary blood glucose measurement by g lucometer (mass/volume) - 02/27/20 20:15 Capillary blood glucose measurement by glucometer (mas s/volume) 194 mg/dL 70-110 Complete blood count (CBC) with automate d white blood cell (WBC) differential - 02/28/20 05:25 Blood leukocytes automated count (number/volume) 11.5 10*3/uL 4.3-11.0 Blood erythrocytes automated count (number/volume) 4.60 10*6/uL 4.35-5.85 Venous blood hemoglobin measurement (mass/volume) 13.8 g/dL 11.5-16.0 Blood hematocrit (volume fraction) 44 % 35-52 Automated erythrocyte mean corpuscular volume 95 [ foz_us] 80-99 Automated erythrocyte mean corpuscular h emoglobin (mass per erythrocyte) 30 pg 25-34 Automated erythrocyte mean corpuscular h emoglobin concentration measurement (mass/volume) 32 g/dL 32-36 Automated erythrocyte distribution width ratio 15. 9 % 10.0- 14.5 Automated blood platelet count (count/volume) 352 10*3/uL 130-400 Automated blood platelet mean volume measurement 11.0 [foz_us] 7.4-10.4 Automated blood neutrophils/100 leukocytes 79 % 42-75 Automated blood lymphocytes/100 leukocytes 14 % 12-44 Blood monocytes/100 leukocytes 6 % 0-12 Automated blood eosinophils/100 leukocytes 1 % 0-10 Automated blood basophils/100 leukocytes 0 % 0-10 Blood neutrophils automated count (number/volume) 9.0 10*3 1.8-7.8 Blood lymphocytes automated count (number/volume) 1.7 10*3 1.0-4.0 Blood monocytes automated count (number/volume) 0. 7 10*3 0.0-1.0 Automated eosinophil count 0.1 10*3/uL 0 .0-0.3 Automated blood basophil count (count/volume) 0.0 10*3/uL 0.0-0.1 Comprehensive metabolic panel - 02/28/20 05:25 Serum or plasma sodium measurement (moles/volume) 139 mmol/L 135-145 Serum or plasma potassium measurement (moles/volume) 3.6 mmol/L 3.6-5.0 Serum or plasma chloride measurement (moles/volume) 95 mmol/L 98-107 Carbon dioxide 35 mmol/L 21-32 Serum or plasma anion gap determination (moles/volume) 9 mmol/L 5-14 Serum or plasma urea nitrogen measurement (mass/volume ) 31 mg/dL 7-18 Serum or plasma creatinine measurement (mass/volume) 0.73 mg/dL 0.60-1.30 Serum or plasma urea nitrogen/creatinine mass ratio 42 NRG Serum or plasma creatinine measurement w ith calculation of estimated glomerular filtration rate > NRG Serum or plasma glucose measurement (mass/volume) 153 mg/dL 70-105 Serum or plasma calcium measurement (mass/volume) 8.9 mg/dL 8.5-10.1 Serum or plasma total bilirubin measurement (mass/volu me) 0.5 mg/dL 0.1-1.0 Serum or plasma alkaline phosphatase wesley surement (enzymatic activity/volume) 204 U/L 40-136 Serum or plasma aspartate aminotransfera se measurement (enzymatic activity/volume) 30 U/L 5-34 Serum or plasma alanine aminotransferase measurement (enzymatic activity/volume) 79 U/L 0-55 Serum or plasma protein measurement (mass/volume) 7.8 g/dL 6.4-8.2 Serum or plasma albumin measurement (mass/volume) 3.1 g/dL 3.2-4.5 CALCIUM CORRECTED 9.6 mg/dL 8.5-10.1 PROCALCITONIN (PCT) - 02/28/20 05:25 PROCALCITONIN (PCT) 0.03 ng/mL <0.10 Erythrocyte sedimentation rate by dariela gren method - 02/28/20 05:25 Erythrocyte sedimentation rate by westergren method 63 mm 0- 30 IRON TEST - 02/28/20 05:25 Serum or plasma iron measurement (mass/volume) 73 % 35-180 VITAMIN B 12 - 02/28/20 05:25 VITAMIN B 12 >2000 190-1100 Capillary blood glucose measurement by g lucometer (mass/volume) - 02/28/20 07:22 Capillary blood glucose measurement by glucometer (mas s/volume) 188 mg/dL 70-110 Capillary blood glucose measurement by g lucometer (mass/volume) - 02/28/20 10:59 Capillary blood glucose measurement by glucometer (mas s/volume) 171 mg/dL 70-110 Capillary blood glucose measurement by g lucometer (mass/volume) - 02/28/20 15:36 Capillary blood glucose measurement by glucometer (mas s/volume) 259 mg/dL 70-110 Capillary blood glucose measurement by g lucometer (mass/volume) - 02/28/20 18:34 Capillary blood glucose measurement by glucometer (mas s/volume) 228 mg/dL 70-110 Capillary blood glucose measurement by g lucometer (mass/volume) - 02/28/20 20:10 Capillary blood glucose measurement by glucometer (mas s/volume) 186 mg/dL 70-110 Capillary blood glucose measurement by g lucometer (mass/volume) - 02/29/20 06:21 Capillary blood glucose measurement by glucometer (mas s/volume) 129 mg/dL 70-110 Capillary blood glucose measurement by g lucometer (mass/volume) - 02/29/20 10:45 Capillary blood glucose measurement by glucometer (mas s/volume) 189 mg/dL 70-110 Capillary blood glucose measurement by g lucometer (mass/volume) - 02/29/20 15:34 Capillary blood glucose measurement by glucometer (mas s/volume) 234 mg/dL 70-110 Capillary blood glucose measurement by g lucometer (mass/volume) - 02/29/20 20:07 Capillary blood glucose measurement by glucometer (mas s/volume) 146 mg/dL 70-110 Capillary blood glucose measurement by g lucometer (mass/volume) - 03/01/20 05:20 Capillary blood glucose measurement by glucometer (mas s/volume) 173 mg/dL 70-110 Capillary blood glucose measurement by g lucometer (mass/volume) - 03/01/20 11:16 Capillary blood glucose measurement by glucometer (mas s/volume) 226 mg/dL 70-110 Capillary blood glucose measurement by g lucometer (mass/volume) - 03/01/20 15:22 Capillary blood glucose measurement by glucometer (mas s/volume) 211 mg/dL 70-110 Capillary blood glucose measurement by g lucometer (mass/volume) - 03/01/20 20:15 Capillary blood glucose measurement by glucometer (mas s/volume) 107 mg/dL 70-110 Complete blood count (CBC) with automate d white blood cell (WBC) differential - 03/02/20 05:08 Blood leukocytes automated count (number/volume) 13.6 10*3/uL 4.3-11.0 Blood erythrocytes automated count (number/volume) 4.35 10*6/uL 4.35-5.85 Venous blood hemoglobin measurement (mass/volume) 13.1 g/dL 11.5-16.0 Blood hematocrit (volume fraction) 41 % 35-52 Automated erythrocyte mean corpuscular volume 93 [ foz_us] 80-99 Automated erythrocyte mean corpuscular h emoglobin (mass per erythrocyte) 30 pg 25-34 Automated erythrocyte mean corpuscular h emoglobin concentration measurement (mass/volume) 32 g/dL 32-36 Automated erythrocyte distribution width ratio 16. 0 % 10.0- 14.5 Automated blood platelet count (count/volume) 300 10*3/uL 130-400 Automated blood platelet mean volume measurement 10.7 [foz_us] 7.4-10.4 Automated blood neutrophils/100 leukocytes 78 % 42-75 Automated blood lymphocytes/100 leukocytes 12 % 12-44 Blood monocytes/100 leukocytes 9 % 0-12 Automated blood eosinophils/100 leukocytes 1 % 0-10 Automated blood basophils/100 leukocytes 0 % 0-10 Blood neutrophils automated count (number/volume) 10.6 10*3 1.8-7.8 Blood lymphocytes automated count (number/volume) 1.7 10*3 1.0-4.0 Blood monocytes automated count (number/volume) 1. 2 10*3 0.0-1.0 Automated eosinophil count 0.2 10*3/uL 0 .0-0.3 Automated blood basophil count (count/volume) 0.0 10*3/uL 0.0-0.1 Comprehensive metabolic panel - 03/02/20 05:08 Serum or plasma sodium measurement (moles/volume) 136 mmol/L 135-145 Serum or plasma potassium measurement (moles/volume) 2.9 mmol/L 3.6-5.0 Serum or plasma chloride measurement (moles/volume) 92 mmol/L 98-107 Carbon dioxide 31 mmol/L 21-32 Serum or plasma anion gap determination (moles/volume) 13 mmol/L 5-14 Serum or plasma urea nitrogen measurement (mass/volume ) 29 mg/dL 7-18 Serum or plasma creatinine measurement (mass/volume) 0.75 mg/dL 0.60-1.30 Serum or plasma urea nitrogen/creatinine mass ratio 39 NRG Serum or plasma creatinine measurement w ith calculation of estimated glomerular filtration rate > NRG Serum or plasma glucose measurement (mass/volume) 155 mg/dL 70-105 Serum or plasma calcium measurement (mass/volume) 9.0 mg/dL 8.5-10.1 Serum or plasma total bilirubin measurement (mass/volu me) 0.6 mg/dL 0.1-1.0 Serum or plasma alkaline phosphatase wesley surement (enzymatic activity/volume) 170 U/L 40-136 Serum or plasma aspartate aminotransfera se measurement (enzymatic activity/volume) 34 U/L 5-34 Serum or plasma alanine aminotransferase measurement (enzymatic activity/volume) 56 U/L 0-55 Serum or plasma protein measurement (mass/volume) 7.6 g/dL 6.4-8.2 Serum or plasma albumin measurement (mass/volume) 3.1 g/dL 3.2-4.5 CALCIUM CORRECTED 9.7 mg/dL 8.5-10.1 Capillary blood glucose measurement by g lucometer (mass/volume) - 03/02/20 10:47 Capillary blood glucose measurement by glucometer (mas s/volume) 219 mg/dL 70-110 Capillary blood glucose measurement by g lucometer (mass/volume) - 03/02/20 15:25 Capillary blood glucose measurement by glucometer (mas s/volume) 194 mg/dL 70-110 Capillary blood glucose measurement by g lucometer (mass/volume) - 03/02/20 20:11 Capillary blood glucose measurement by glucometer (mas s/volume) 136 mg/dL 70-110 Capillary blood glucose measurement by g lucometer (mass/volume) - 03/03/20 05:00 Capillary blood glucose measurement by glucometer (mas s/volume) 133 mg/dL 70-110 Capillary blood glucose measurement by g lucometer (mass/volume) - 03/03/20 10:51 Capillary blood glucose measurement by glucometer (mas s/volume) 195 mg/dL 70-110 Capillary blood glucose measurement by g lucometer (mass/volume) - 03/03/20 15:42 Capillary blood glucose measurement by glucometer (mas s/volume) 150 mg/dL 70-110 Capillary blood glucose measurement by g lucometer (mass/volume) - 03/03/20 20:08 Capillary blood glucose measurement by glucometer (mas s/volume) 159 mg/dL 70-110 Capillary blood glucose measurement by g lucometer (mass/volume) - 03/04/20 05:41 Capillary blood glucose measurement by glucometer (mas s/volume) 170 mg/dL 70-110 Capillary blood glucose measurement by g lucometer (mass/volume) - 03/04/20 10:28 Capillary blood glucose measurement by glucometer (mas s/volume) 165 mg/dL 70-110 Capillary blood glucose measurement by g lucometer (mass/volume) - 03/04/20 16:40 Capillary blood glucose measurement by glucometer (mas s/volume) 202 mg/dL 70-110 Capillary blood glucose measurement by g lucometer (mass/volume) - 03/04/20 20:04 Capillary blood glucose measurement by glucometer (mas s/volume) 130 mg/dL 70-110 Capillary blood glucose measurement by g lucometer (mass/volume) - 03/05/20 05:10 Capillary blood glucose measurement by glucometer (mas s/volume) 108 mg/dL 70-110 Capillary blood glucose measurement by g lucometer (mass/volume) - 03/05/20 10:28 Capillary blood glucose measurement by glucometer (mas s/volume) 92 mg/dL 70-110 Capillary blood glucose measurement by g lucometer (mass/volume) - 03/05/20 15:28 Capillary blood glucose measurement by glucometer (mas s/volume) 133 mg/dL 70-110 Complete blood count (CBC) with automate d white blood cell (WBC) differential - 03/06/20 04:30 Blood leukocytes automated count (number/volume) 6.1 10*3/uL 4.3-11.0 Blood erythrocytes automated count (number/volume) 3.83 10*6/uL 4.35-5.85 Venous blood hemoglobin measurement (mass/volume) 11.4 g/dL 11.5-16.0 Blood hematocrit (volume fraction) 36 % 35-52 Automated erythrocyte mean corpuscular volume 94 [ foz_us] 80-99 Automated erythrocyte mean corpuscular h emoglobin (mass per erythrocyte) 30 pg 25-34 Automated erythrocyte mean corpuscular h emoglobin concentration measurement (mass/volume) 32 g/dL 32-36 Automated erythrocyte distribution width ratio 16. 8 % 10.0- 14.5 Automated blood platelet count (count/volume) 174 10*3/uL 130-400 Automated blood platelet mean volume measurement 10.5 [foz_us] 7.4-10.4 Automated blood neutrophils/100 leukocytes 68 % 42-75 Automated blood lymphocytes/100 leukocytes 21 % 12-44 Blood monocytes/100 leukocytes 7 % 0-12 Automated blood eosinophils/100 leukocytes 4 % 0-10 Automated blood basophils/100 leukocytes 0 % 0-10 Blood neutrophils automated count (number/volume) 4.2 10*3 1.8-7.8 Blood lymphocytes automated count (number/volume) 1.3 10*3 1.0-4.0 Blood monocytes automated count (number/volume) 0. 4 10*3 0.0-1.0 Automated eosinophil count 0.3 10*3/uL 0 .0-0.3 Automated blood basophil count (count/volume) 0.0 10*3/uL 0.0-0.1 Comprehensive metabolic panel - 03/06/20 04:30 Serum or plasma sodium measurement (moles/volume) 138 mmol/L 135-145 Serum or plasma potassium measurement (moles/volume) 3.2 mmol/L 3.6-5.0 Serum or plasma chloride measurement (moles/volume) 97 mmol/L 98-107 Carbon dioxide 31 mmol/L 21-32 Serum or plasma anion gap determination (moles/volume) 10 mmol/L 5-14 Serum or plasma urea nitrogen measurement (mass/volume ) 18 mg/dL 7-18 Serum or plasma creatinine measurement (mass/volume) 0.63 mg/dL 0.60-1.30 Serum or plasma urea nitrogen/creatinine mass ratio 29 NRG Serum or plasma creatinine measurement w ith calculation of estimated glomerular filtration rate > NRG Serum or plasma glucose measurement (mass/volume) 93 mg/dL 70-105 Serum or plasma calcium measurement (mass/volume) 8.5 mg/dL 8.5-10.1 Serum or plasma total bilirubin measurement (mass/volu me) 0.5 mg/dL 0.1-1.0 Serum or plasma alkaline phosphatase wesley surement (enzymatic activity/volume) 150 U/L 40-136 Serum or plasma aspartate aminotransfera se measurement (enzymatic activity/volume) 33 U/L 5-34 Serum or plasma alanine aminotransferase measurement (enzymatic activity/volume) 39 U/L 0-55 Serum or plasma protein measurement (mass/volume) 6.5 g/dL 6.4-8.2 Serum or plasma albumin measurement (mass/volume) 2.7 g/dL 3.2-4.5 CALCIUM CORRECTED 9.5 mg/dL 8.5-10.1 Capillary blood glucose measurement by g lucometer (mass/volume) - 03/06/20 10:45 Capillary blood glucose measurement by glucometer (mas s/volume) 144 mg/dL 70-110 Capillary blood glucose measurement by g lucometer (mass/volume) - 03/06/20 15:49 Capillary blood glucose measurement by glucometer (mas s/volume) 132 mg/dL 70-110 Capillary blood glucose measurement by g lucometer (mass/volume) - 03/06/20 19:58 Capillary blood glucose measurement by glucometer (mas s/volume) 153 mg/dL 70-110 Capillary blood glucose measurement by g lucometer (mass/volume) - 03/07/20 05:20 Capillary blood glucose measurement by glucometer (mas s/volume) 115 mg/dL 70-110 Capillary blood glucose measurement by g lucometer (mass/volume) - 03/07/20 10:56 Capillary blood glucose measurement by glucometer (mas s/volume) 126 mg/dL 70-110 Capillary blood glucose measurement by g lucometer (mass/volume) - 03/08/20 05:09 Capillary blood glucose measurement by glucometer (mas s/volume) 101 mg/dL 70-110 Capillary blood glucose measurement by g lucometer (mass/volume) - 03/09/20 05:41 Capillary blood glucose measurement by glucometer (mas s/volume) 117 mg/dL 70-110 Capillary blood glucose measurement by g lucometer (mass/volume) - 03/10/20 05:05 Capillary blood glucose measurement by glucometer (mas s/volume) 95 mg/dL 70-110 Capillary blood glucose measurement by g lucometer (mass/volume) - 03/11/20 06:32 Capillary blood glucose measurement by glucometer (mas s/volume) 105 mg/dL 70-110 Capillary blood glucose measurement by g lucometer (mass/volume) - 03/12/20 04:32 Capillary blood glucose measurement by glucometer (mas s/volume) 115 mg/dL 70-110 Complete blood count (CBC) with automate d white blood cell (WBC) differential - 03/13/20 03:40 Blood leukocytes automated count (number/volume) 4.3 10*3/uL 4.3-11.0 Blood erythrocytes automated count (number/volume) 3.71 10*6/uL 4.35-5.85 Venous blood hemoglobin measurement (mass/volume) 10.9 g/dL 11.5-16.0 Blood hematocrit (volume fraction) 35 % 35-52 Automated erythrocyte mean corpuscular volume 94 [ foz_us] 80-99 Automated erythrocyte mean corpuscular h emoglobin (mass per erythrocyte) 29 pg 25-34 Automated erythrocyte mean corpuscular h emoglobin concentration measurement (mass/volume) 31 g/dL 32-36 Automated erythrocyte distribution width ratio 17. 6 % 10.0- 14.5 Automated blood platelet count (count/volume) 128 10*3/uL 130-400 Automated blood platelet mean volume measurement 9.6 [foz_us] 7.4-10.4 Automated blood neutrophils/100 leukocytes 56 % 42-75 Automated blood lymphocytes/100 leukocytes 31 % 12-44 Blood monocytes/100 leukocytes 9 % 0-12 Automated blood eosinophils/100 leukocytes 4 % 0-10 Automated blood basophils/100 leukocytes 0 % 0-10 Blood neutrophils automated count (number/volume) 2.4 10*3 1.8-7.8 Blood lymphocytes automated count (number/volume) 1.3 10*3 1.0-4.0 Blood monocytes automated count (number/volume) 0. 4 10*3 0.0-1.0 Automated eosinophil count 0.2 10*3/uL 0 .0-0.3 Automated blood basophil count (count/volume) 0.0 10*3/uL 0.0-0.1 Comprehensive metabolic panel - 03/13/20 03:40 Serum or plasma sodium measurement (moles/volume) 137 mmol/L 135-145 Serum or plasma potassium measurement (moles/volume) 3.7 mmol/L 3.6-5.0 Serum or plasma chloride measurement (moles/volume) 103 mmol/L 98-107 Carbon dioxide 26 mmol/L 21-32 Serum or plasma anion gap determination (moles/volume) 8 mmol/L 5-14 Serum or plasma urea nitrogen measurement (mass/volume ) 13 mg/dL 7-18 Serum or plasma creatinine measurement (mass/volume) 0.59 mg/dL 0.60-1.30 Serum or plasma urea nitrogen/creatinine mass ratio 22 NRG Serum or plasma creatinine measurement w ith calculation of estimated glomerular filtration rate > NRG Serum or plasma glucose measurement (mass/volume) 106 mg/dL 70-105 Serum or plasma calcium measurement (mass/volume) 8.0 mg/dL 8.5-10.1 Serum or plasma total bilirubin measurement (mass/volu me) 0.4 mg/dL 0.1-1.0 Serum or plasma alkaline phosphatase wesley surement (enzymatic activity/volume) 109 U/L 40-136 Serum or plasma aspartate aminotransfera se measurement (enzymatic activity/volume) 37 U/L 5-34 Serum or plasma alanine aminotransferase measurement (enzymatic activity/volume) 30 U/L 0-55 Serum or plasma protein measurement (mass/volume) 6.0 g/dL 6.4-8.2 Serum or plasma albumin measurement (mass/volume) 2.4 g/dL 3.2-4.5 CALCIUM CORRECTED 9.3 mg/dL 8.5-10.1 Capillary blood glucose measurement by g lucometer (mass/volume) - 03/14/20 04:35 Capillary blood glucose measurement by glucometer (mas s/volume) 108 mg/dL 70-110 Capillary blood glucose measurement by g lucometer (mass/volume) - 03/15/20 05:30 Capillary blood glucose measurement by glucometer (mas s/volume) 93 mg/dL 70-110 Encounters ACCT No. Visit Date/Time Discharge Status Pt. Type Provider Facility Loc./Unit Complaint [id number] 02/25/2020 13:20:00 020 13:40:00 DIS Inpatient KATELYN JENSEN DO, [facility] IRF PARAPLEGIA [id number] 02/17/2020 21:40:00 13:20:00 DIS Outpatient KATELYN JENSEN DO [facility] 4TH DYSPNEA;HYPOXIA;PNEUMON IA;R/O COVID 19 [id number] 02/14/2020 13:13:00 17:11:00 DIS Emergency MADELINE BENÍTEZ MD [facility] ER FS CONSTIPATION [id number] 12/14/2019 14:11:00 15:05:00 DIS Outpatient KEYSHA KINGSLEY MD [facility] REHAB R LEG LYMPHEDEMA [id number] 01/16/2020 16:31:00 20:37:00 DIS Emergency MADELINE WOLFF DO [facility] ER FS SOA, HIGH BP, LOW O2 [id number] 11/11/2019 11:51:00 14:00:00 DIS Outpatient EDUARDO FISHER MD [facility] REHAB R LEG LYMPHEDEMA [id number] 11/30/2019 13:07:00 23:59:59 CLS Outpatient EDUARDO FISHER MD [facility] WOUNDCARE [id number] 11/16/2019 13:29:00 23:59:59 CLS Outpatient EDUARDO FISHER MD [facility] WOUNDCARE [id number] 11/09/2019 13:32:00 23:59:59 CLS Outpatient EDUARDO FISHER MD [facility] WOUNDCARE [id number] 11/02/2019 13:44:00 23:59:59 CLS Outpatient EDUARDO FISHER MD [facility] WOUNDCARE [id number] 10/26/2019 16:15:00 23:59:59 CLS Outpatient EDUARDO FISHER MD [facility] LAB NON PRESSURE CHRONIC IL CER OF R CALF [id number] 10/26/2019 14:29:00 23:59:59 CLS Outpatient EDUARDO FISHER MD [facility] WOUNDCARE [id number] 02/15/2020 08:21:00 Document Registration [id number] 02/12/2020 10:23:00 Document Registration
[2020-03-31 12:33] LABS: BASOPHILS # (AUTO) 0.1 10^3/uL (0.0-0.1); BASOPHILS % (AUTO) 1 % (0-10); EOSINOPHILS # (AUTO) 0.5 10^3/uL (0.0-0.3); EOSINOPHILS % (AUTO) 4 % (0-10); HEMATOCRIT 44 % (35-52); HEMOGLOBIN 14.3 G/DL (11.5-16.0); LYMPHOCYTES % (AUTO) 17 % (12-44); MEAN CORPUSCULAR HEMOGLOBIN 29 PG (25-34); MEAN CORPUSCULAR HGB CONC 32 G/DL (32-36); MEAN CORPUSCULAR VOLUME 91 FL (80-99); MEAN PLATELET VOLUME 10.1 FL (7.4-10.4); MONOCYTES # (AUTO) 0.8 X 10^3 (0.0-1.0); MONOCYTES % (AUTO) 7 % (0-12); NEUTROPHILS % (AUTO) 68 % (42-75); PLATELET COUNT 276 10^3/uL (130-400); RED CELL DISTRIBUTION WIDTH 17.9 % (10.0-14.5); WHITE BLOOD COUNT 11.9 10^3/uL (4.3-11.0)
--- NOTE | 2020-03-31 12:47 | Diagnostic Imaging Report ---
INDICATION: Bilateral hand numbness. TIME OF EXAM: 12:32 p.m. COMPARISON: Correlation is made with prior chest from 02/21/2020. FINDINGS: The heart size is normal. There is some linear atelectasis or scarring in the right midlung. Overall aeration has improved in the right base since prior. Left lung is clear. There is no effusion or pneumothorax. IMPRESSION: Improved aeration to the right base when compared with examination from 02/21/2020. Dictated by: Dictated on workstation # [id number]
[2020-03-31 12:49] LABS: ALBUMIN 2.8 GM/DL (3.2-4.5); BILIRUBIN,TOTAL 0.7 MG/DL (0.1-1.0); CALCIUM 8.5 MG/DL (8.5-10.1); CREATININE SERUM 1.37 MG/DL (0.60-1.30); POTASSIUM 3.1 MMOL/L (3.6-5.0); TOTAL PROTEIN 6.5 GM/DL (6.4-8.2)
[2020-03-31] MEDS ORDERED: DEXTROSE 50% 50 ML (IMS) SYR ONE (13:10)
[2020-03-31] MEDS ORDERED: DEXTROSE 50% 50 ML (IMS) SYR IV ONE (13:30)
--- NOTE | 2020-03-31 13:32 | ED General ---
General Chief Complaint: Glucose Problems Stated Complaint: AMS History of Present Illness Date Seen by Provider: March 31, 2020 Time Seen by Provider: 13:21 Initial Comments 54-year-old female history of gastric bypass but still morbidly obese seen several times in the last few weeks, discovered to have destructive lesion in her back at T9 - 10 questionable malignancy versus osteomyelitis and she is now functionally a paraplegic she had CHF fluid overload and respiratory insufficiency and a prolonged stay at the hospital in [place] regarding all of the above she was admitted to rehabilitation on today an ambulance was called to her nursing facility I am not given any history as to what precipitated this she obviously has a red macular rash over her face neck upper chest and then diffusely all over including both legs she thinks it may have been present for a few days but isn't sure she denies fever chills nausea vomiting chest pain shortness of breath she was found to have a blow blood sugar en route is diabetic on sinsulin, not eating well she has been awake and answering questions appropriately since here in ER Allergies and Home Medications Allergies Coded Allergies: adhesive tape (Unverified Allergy, Unknown, 01/16/20) Home Medications Alprazolam 0.25 Mg Tablet, 0.25 MG PO Q8H PRN for ANXIETY, (Reported) CAN TAKE 1 TAB EVERY 8 HOURS DURING THE DAY- IF THE PT HAS NOT HAD MORE THEN 2 DOSES DURING THE DAY THEN PT CAN HAVE 2 TABS AT BEDTIME. MAY NOT EXCEED 4 TABS PER 24 HOURS Alprazolam 0.25 Mg Tablet, 0.5 MG PO HS PRN for ANXIETY CAN TAKE 1 TAB EVERY 8 HOURS DURING THE DAY- IF THE PT HAS NOT HAD MORE THEN 2 DOSES DURING THE DAY THEN PT CAN HAVE 2 TABS AT BEDTIME. MAY NOT EXCEED 4 TABS PER 24 HOURS Prescribed by: KATELYN JENSEN on 03/15/20 0655 Aripiprazole 5 Mg Tablet, 5 MG PO DAILY, (Reported) Atorvastatin Calcium 40 Mg Tablet, 40 MG PO DAILY, (Reported) Baclofen 10 Mg Tablet, 10 MG PO Q6HR PRN for PAIN-MODERATE (5-7) Prescribed by: KATELYN JENSEN on 03/15/20 0655 Calcium Carbonate/Vitamin D3 1 Each Tablet, 1 EACH PO DAILY, (Reported) Celecoxib 400 Mg Capsule, 400 MG PO DAILY, (Reported) Cholecalciferol (Vitamin D3) 50 Mcg Capsule, 50 MCG PO DAILY, (Reported) Docusate Sodium 100 Mg Capsule, 100 MG PO BID, (Reported) Enoxaparin Sodium 60 Mg/0.6 Ml Syringe, 60 MG SC Q12HR Prescribed by: KATELYN JENSEN on 03/15/20654 Ergocalciferol (Vitamin D2) 1,250 Mcg Capsule, 1,250 MCG PO SUN,THUR, (Reported) Gabapentin 300 Mg Capsule, 300 MG PO TID, (Reported) Insulin Determir 1,000 Units/10 Ml Soln, 10 UNIT SQ HS Prescribed by: KATELYN JENSEN on 03/15/20654 Lactobacillus Acidophilus/Pect 1 Each Capsule, 2 EACH PO TIDWM Prescribed by: KATELYN JENSEN on 03/15/20654 Levofloxacin 750 Mg Tablet, 750 MG PO DAILY Prescribed by: KATELYN JENSEN on 03/15/20654 Melatonin 3 Mg Tablet, 3 MG PO HS PRN for INSOMNIA Prescribed by: KATELYN JENSEN on 03/15/20654 Metformin HCl 500 Mg Tablet, 250 MG PO DAILY, (Reported) TAKES OF A 500MG TAB DAILY Multivitamin 1 Each Tablet, 1 EACH PO DAILY, (Reported) Ondansetron 4 Mg Tab.rapdis, 4 MG PO Q6H PRN for NAUSEA/VOMITING-1ST LINE Prescribed by: KATELYN JENSEN on 03/15/20654 Oxycodone HCl 10 Mg Tab.er.12h, 10 MG PO Q12H Prescribed by: KATELYN JENSEN on 03/15/20654 Oxycodone HCl 5 Mg Tablet, 10 MG PO Q4H PRN for PAIN-MODERATE (5-7) Prescribed by: KATELYN JENSEN on 03/15/20654 Pantoprazole Sodium 40 Mg Tablet.dr, 40 MG PO DAILY Prescribed by: KATELYN JENSEN on 03/15/20654 Polyethylene Glycol 3350 17 Gm Powd.pack, 17 GM PO DAILY, (Reported) Potassium Chloride 20 Meq Tablet.er, 20 MEQ PO DAILY, (Reported) Ropinirole HCl 1 Mg Tablet, 1 MG PO HS Prescribed by: KATELYN JENSEN on 03/15/20654 Sennosides/Docusate Sodium 1 Each Tablet, 1 EA PO BID Prescribed by: KATELYN JENSEN on 03/15/20654 Thiamine HCl 250 Mg Tablet, 250 MG PO DAILY, (Reported) Topiramate 25 Mg Tablet, 25 MG PO DAILY, (Reported) Torsemide 100 Mg Tablet, 50 MG PO BID, (Reported) TAKES TAB OF 100MG TO EQUAL 50MG TWICE DAILY Venlafaxine HCl 75 Mg Tab, 75 MG PO QID, (Reported) Vitamin A & D 60 Gm Oint, 0 GM TOP BID Prescribed by: KATELYN JENSEN on 03/15/20654 Zonisamide 100 Mg Capsule, 200 MG PO BID, (Reported) TAKES 2 (100MG) CAPS TO EQUAL 200MG TWICE DAILY [Lidocaine 4% Patch] 1 EA PATCH, 1 EA TOP DAILY Prescribed by: KATELYN JENSEN on 03/15/20654 Patient Home Medication List Home Medication List Reviewed: Yes Review of Systems Review of Systems Constitutional: no symptoms reported EENTM: no symptoms reported Respiratory: no symptoms reported Cardiovascular: no symptoms reported Gastrointestinal: no symptoms reported Genitourinary: no symptoms reported Musculoskeletal: other (insinuating mid back pain) Skin: rash (impressive macular rash as described) Psychiatric/Neurological: No Symptoms Reported Past Vgwlevu-Adzwse-Hmfebb Hx Patient Social History Alcohol Use: Denies Use Recreational Drug Use: No Smoking Status: Former Smoker Type Used: Cigarettes Former Smoker, Quit: Sep 19, 2016 2nd Hand Smoke Exposure: No Recent Foreign Travel: Yes Recent Hopitalizations: Yes (PNE) Physical Abuse: No Sexual Abuse: No Mistreated: No Fear: No Immunizations Up To Date Date of Pneumonia Vaccine: Sep 27, 2019 Date of Influenza Vaccine: Sep 27, 2019 Seasonal Allergies Seasonal Allergies: No Past Medical History Surgeries: Yes (Gastric bypass, c- section , gall, carpal tunnel release bilat,) Gallbladder Respiratory: Yes Sleep Apnea Currently Using CPAP: No Cardiac: Yes Chronic Edema/Swelling, High Cholesterol, Hypertension Neurological: No Paralysis, Spinal Cord Injury Genitourinary: Yes (incot-r/t lasix at home) Gastrointestinal: Yes Gastroesophageal Reflux Musculoskeletal: No (Restless leg syndrome) Chronic Back Pain Endocrine: Yes Diabetes, Non-Insulin dep HEENT: No Cancer: No Psychosocial: Yes Anxiety, Bipolar, Depression Integumentary: No Blood Disorders: No Family Medical History Diabetes, Hypertension, Renal Disease Physical Exam Vital Signs Vital Signs - First Documented 03/31/20 11:50 Temp 35.7 Pulse 96 Resp 18 B/P (MAP) 106/78 (87) Pulse Ox 100 O2 Delivery Room Air Capillary Refill : Height, Weight, BMI Height: '65.00" Weight: 346lbs. oz. kg; 59.90 BMI Method: General Appearance: Other (or mildly obese macular rash week denies short of breath) Eyes: Bilateral Eye PERRL, Bilateral Eye EOMI HEENT: Pharynx Normal Neck: Supple Respiratory: Lungs Clear Cardiovascular: Regular Rate, Rhythm Gastrointestinal: Normal Bowel Sounds Rectal: Other (no paul skin ulcer may well have perineal fawn) Extremity: Other (with edema both legs diffuse macular redness) Focused Exam Lactate Level 03/31/20 12:06: Lactic Acid Level 2.10*H 03/31/20 14:28: Lactic Acid Level 2.61*H 03/31/20 16:28: Lactic Acid Level Laboratory Tests Test 03/31/20 14:28 03/31/20 16:28 Lactic Acid Level 2.61 MMOL/L (0.50-2.00) *H Progress/Results/Core Measures Suspected Sepsis SIRS Temperature: Pulse: Respiratory Rate: Laboratory Tests 03/31/20 12:06: White Blood Count 11.9H Blood Pressure / Mean: 03/31/20 12:06: Lactic Acid Level 2.10*H 03/31/20 14:28: Lactic Acid Level 2.61*H 03/31/20 16:28: Laboratory Tests 03/31/20 12:06: Creatinine 1.37H, Platelet Count 276, Total Bilirubin 0.7 Results/Orders Lab Results Laboratory Tests Test 03/31/20 12:01 03/31/20 12:06 03/31/20 13:13 03/31/20 13:40 Range/Units Glucometer 76 47 *L 70-110 MG/DL White Blood Count 11.9 H 4.3-11.0 10^3/uL Red Blood Count 4.85 4.35-5.85 10^6/uL Hemoglobin 14.3 11.5-16.0 G/DL Hematocrit 44 35-52 % Mean Corpuscular Volume 91 80-99 FL Mean Corpuscular Hemoglobin 29 25-34 PG Mean Corpuscular Hemoglobin Concent 32 32-36 G/DL Red Cell Distribution Width 17.9 H 10.0-14.5 % Platelet Count 276 130-400 10^3/uL Mean Platelet Volume 10.1 7.4-10.4 FL Neutrophils (%) (Auto) 68 42-75 % Lymphocytes (%) (Auto) 17 12-44 % Monocytes (%) (Auto) 7 0-12 % Eosinophils (%) (Auto) 4 0-10 % Basophils (%) (Auto) 1 0-10 % Neutrophils # (Auto) 8.0 H 1.8-7.8 X 10^3 Lymphocytes # (Auto) 2.0 1.0-4.0 X 10^3 Monocytes # (Auto) 0.8 0.0-1.0 X 10^3 Eosinophils # (Auto) 0.5 H 0.0-0.3 10^3/uL Basophils # (Auto) 0.1 0.0-0.1 10^3/uL Sodium Level 134 L 135-145 MMOL/L Potassium Level 3.1 L 3.6-5.0 MMOL/L Chloride Level 86 L 98-107 MMOL/L Carbon Dioxide Level 31 21-32 MMOL/L Anion Gap 17 H 5-14 MMOL/L Blood Urea Nitrogen 45 H 7-18 MG/DL Creatinine 1.37 H 0.60-1.30 MG/DL Estimat Glomerular Filtration Rate 40 BUN/Creatinine Ratio 33 Glucose Level 77 70-105 MG/DL Lactic Acid Level 2.10 *H 0.50-2.00 MMOL/L Calcium Level 8.5 8.5-10.1 MG/DL Corrected Calcium 9.5 8.5-10.1 MG/DL Total Bilirubin 0.7 0.1-1.0 MG/DL Aspartate Amino Transf (AST/SGOT) 38 H 5-34 U/L Alanine Aminotransferase (ALT/SGPT) 21 0-55 U/L Alkaline Phosphatase 119 40-136 U/L Total Protein 6.5 6.4-8.2 GM/DL Albumin 2.8 L 3.2-4.5 GM/DL Urine Color YELLOW Urine Clarity CLEAR Urine pH 5.0 5-9 Urine Specific [place] 1.025 H 1.016-1.022 Urine Protein TRACE H NEGATIVE Urine Glucose (UA) NEGATIVE NEGATIVE Urine Ketones TRACE H NEGATIVE Urine Nitrite NEGATIVE NEGATIVE Urine Bilirubin 1+ H NEGATIVE Urine Urobilinogen 1.0 < = 1.0 MG/DL Urine Leukocyte Esterase 2+ H NEGATIVE Urine RBC (Auto) 1+ H NEGATIVE Urine RBC NONE /HPF Urine WBC TNTC H /HPF Urine Squamous Epithelial Cells 5-10 /HPF Urine Crystals NONE /LPF Urine Bacteria TRACE /HPF Urine Casts PRESENT /LPF Urine Hyaline Casts 0-2 H /LPF Urine Mucus NONE /LPF Urine Culture Indicated YES Test 03/31/20 13:50 03/31/20 14:28 03/31/20 15:42 03/31/20 16:11 Range/Units Glucometer > 600 *H 73 > 600 *H 70-110 MG/DL Lactic Acid Level 2.61 *H 0.50-2.00 MMOL/L Test 03/31/20 16:28 Range/Units My Orders Orders - ANNA KEYS MD Iv Heplock-Insert (Order) (03/31/20 12:18) Ns Iv 1000 Ml (Sodium Chloride 0.9%) (03/31/20 12:30) Blood Culture (03/31/20 12:18) Lactic Acid Analyzer (03/31/20 12:18) Cbc With Automated Diff (03/31/20 12:18) Comprehensive Metabolic Panel (03/31/20 12:18) Chest 1 View Ap/Pa Only (03/31/20 12:18) Ekg Tracing (03/31/20 12:18) Continuous Ekg Monitoring (03/31/20 12:18) Urinalysis (03/31/20 12:18) D50w (Emergency) Syringe (Dextrose 50% 5 (03/31/20 13:30) D50w (Emergency) Syringe (Dextrose 50% 5 (03/31/20 13:10) Urine Culture (03/31/20 13:40) Vancomycin Injection (Vancomycin Injecti (03/31/20 15:15) Meropenem (Merrem 1000 Mg) (03/31/20 15:15) Meropenem (Merrem 500 Mg) (03/31/20 15:10) Water (Sterile) For Injection (Sterile W (03/31/20 15:11) Medications Given in ED Current Medications Medications Dose Ordered Sig/Fede Route Start Time Stop Time Status Last Admin Dose Admin Dextrose 50 ml ONCE ONCE IV 03/31/20 13:30 03/31/20 13:31 DC 03/31/20 13:15 50 ML Meropenem 1000 mg/ Sterile Water 20 ml @ 240 mls/hr ONCE ONCE IV 03/31/20 15:15 03/31/20 15:19 DC 03/31/20 15:47 240 MLS/HR Vancomycin HCl 1500 mg/Sodium Chloride 500 ml @ 257.5 mls/ hr ONCE ONCE IV 03/31/20 15:15 03/31/20 17:11 03/31/20 15:48 257.5 MLS/HR Vital Signs/I&O 03/31/20 11:50 Temp 35.7 Pulse 96 Resp 18 B/P (MAP) 106/78 (87) Pulse Ox 100 O2 Delivery Room Air Capillary Refill : Less Than 3 Seconds Progress Note : Progress Note Hemoglobin 14.3 white count 11,900 chemistries show potassium 3.1 BUN 45 creatinine 1.4 anion gap 17 lactate 2.1 glucose 77 Chest x-ray shows nothing acute improvement in aeration of right lower lobe Patient's glucose in the field was reported as 50 and initially was okay here bu t then dropped to 47 so we gave D50 EKG show sinus rhythm @[address] changes UA TNTC WBC's 2+ leuk est discussed with Dr. Ramsey knows patient well will start vanc and meropenem and admit to ICU ECG EKG : Comment Sinus rhythm at 87 no acute changes Departure Communication (Admissions) Time/Spoke to Admitting Phy: 16:00 Impression Primary Impression: Rash Additional Impressions: UTI (urinary tract infection) Qualified Codes: N30.01 - Acute cystitis with hematuria Hypoglycemia Disposition: ADMITTED INPATIENT Condition: Stable Admissions Decision to Admit Reason: Admit from ER (General) Decision to Admit/Date: March 31, 2020 Time/Decision to Admit Time: 16:00 Departure-Patient Inst. Referrals: SELFKEYSHA MD (PCP/Family) Primary Care Physician ANNA KEYS MD March 31, 2020 13:32
[2020-03-31] MEDS: NS IV 1000 ML 1,000 ML IV SCH ×4 (13:47→22:49)
[2020-03-31 14:14] LABS: CLARITY,URINE CLEAR; COLOR,URINE YELLOW; GLUCOSE, URINE (UA) NEGATIVE (NEGATIVE); KETONES,URINE TRACE (NEGATIVE); NITRITE,URINE NEGATIVE (NEGATIVE); PROTEIN,URINE TRACE (NEGATIVE)
[2020-03-31 14:15] LABS: BILIRUBIN,URINE 1+ (NEGATIVE); LEUKOCYTE ESTERASE ,URINE 2+ (NEGATIVE)
[2020-03-31 14:16] LABS: BACTERIA,URINE TRACE /HPF; HYALINE CASTS, URINE 0-2 /LPF; WBC,URINE TNTC /HPF
[2020-03-31] MEDS ORDERED: MEROPENEM 500 MG VIAL (MERREM) IV ONE (15:10)
[2020-03-31] MEDS ORDERED: WATER (STERILE) FOR INJECTION 20 ML ONE (15:11)
[2020-03-31] MEDS ORDERED: MEROPENEM 1,000 MG in WATER (STERILE) FOR INJECTION 20 ML IV ONE (15:15)
[2020-03-31] MEDS ORDERED: VANCOMYCIN INJECTION 1,500 MG in NS IV 500 ML 500 ML IV ONE (15:15)
--- OUTSIDE RECORDS SUMMARY | 2020-03-31 17:09 | XMS REPORT | Continuity of Care Document ---
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 10/29/2019 EDUARDO FISHER MD, Ot I89 .0 LYMPHEDEMA, NOT ELSEWHERE CLASSIFIED 10/29/2019 EDUARDO FISHER MD, Ot 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 ULCER OF RIGHT CALF 11/03/2019 EDUARDO FISHER MD, Ot E11.622 TYPE 2 DIABETES MELLITUS WITH OTHER SKIN 11/03/2019 EDUARDO FISHER MD, Ot E66.01 MORBID (SEVERE) OBESITY DUE TO EXCESS CA 11/03/2019 EDUARDO FISHER MD, Ot 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 11/03/2019 [...] 11/26/2019 EDUARDO FISHER MD, Ot 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 11/26/2019 EDUARDO FISHER MD, Ot I89 .0 LYMPHEDEMA, NOT ELSEWHERE CLASSIFIED 11/26/2019 EDUARDO FISHER MD, Ot 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 ULCER OF RIGHT CALF 11/26/2019 EDUARDO FISHER MD, Ot E11.622 TYPE 2 DIABETES MELLITUS WITH OTHER SKIN 11/26/2019 EDUARDO FISHER MD, Ot E66.01 MORBID (SEVERE) OBESITY DUE TO EXCESS CA 11/26/2019 EDUARDO FISHER MD, Ot 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 11/26/2019 [...] 11/29/2019 EDUARDO FISHER MD, Ot 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 11/29/2019 [...] I89 .0 LYMPHEDEMA, NOT ELSEWHERE CLASSIFIED 12/22/2019 EDUAROD FISHER MD, Ot L97.211 NON-PRS CHRONIC ULCER [...] 01/16/2020 EDUARDO FISHER MD Ot 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 01/16/2020 EDUARDO FISHER MD, Ot I89 .0 LYMPHEDEMA, NOT ELSEWHERE CLASSIFIED 01/16/2020 EDUARDO FISHER MD Ot 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 ULCER OF RIGHT CALF 01/16/2020 EDUARDO FISHER MD, Ot E11.622 TYPE 2 DIABETES MELLITUS WITH OTHER SKIN 01/16/2020 EDUARDO FISHER MD, Ot E66.01 MORBID (SEVERE) OBESITY DUE TO EXCESS CA 01/16/2020 EDUARDO FISHER MD Ot 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 01/16/2020 [...] 01/16/2020 EDUARDO FISHER MD Ot 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 01/16/2020 [...] 02/17/2020 EDUARDO FISHER MD Ot 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 02/17/2020 EDUARDO FISHER MD, Ot I89 .0 LYMPHEDEMA, NOT ELSEWHERE CLASSIFIED 02/17/2020 EDUARDO FISHER MD, Ot 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 ULCER OF RIGHT CALF 02/17/2020 EDUARDO FISHER MD, Ot E11.622 TYPE 2 DIABETES MELLITUS WITH OTHER SKIN 02/17/2020 EDUARDO FISHER MD, Ot E66.01 MORBID (SEVERE) OBESITY DUE TO EXCESS CA 02/17/2020 EDUARDO FISHER MD Ot 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 02/17/2020 [...] 02/17/2020 EDUARDO FISHER MD Ot 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 02/17/2020 [...] 02/25/2020 Ot Z88.8 SERGEI RGY STATUS TO [facility] DRUG/MEDS/BIOL SUB 02/25/2020 JENSEN DO, KATELYN Ot [...] INDEX (BMI) 50.0-59.9, ADULT 02/25/2020 MIKEY RIOS KATELNY Ot Z79.1 HALF-WAY (CURRENT) USE OF NON-STEROIDAL 02/25/2020 MIKEY RIOS KATELYN Ot Z87.89 1 PERSONAL HISTORY [...] GASTRO-ESOPHAGEAL REFLUX DISEASE WITHOUT 03/06/2020 JENSEN DO, KAETLYN Ot 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, THORACIC SALVADOR [...] G95.29 OTHER CORD COMPRESSION 03/15/2020 JENSEN DO, KATELYN Ot I10 ESSENTIAL (PRIMARY) HYPERTENSION 03/15/2020 JENSEN [...] INFLUENZA A AND B ANTIGENS BY IA [facility] Comprehensive metabolic panel - 02/12/20 10:12 [...] - 02/17/20 21:2 0 Bacterial throat culture [id number] NRG FREE TEXT EXTERNAL PLUS NORMAL WONG NR G QUANTITY OF GROWTH Abundant Growth NRG FREE TEXT EXTERNAL 2 NO BETA STREP ISOLATED NRG FREE TEXT EXTERNAL 3 METHICILLIN SUSCEPTIBILE STAP H AUREUS NRG FREE TEXT ENTRY 4 SCREENING AT [facility] 02/19/10 8:30 NRG Complete blood [...] Non-Reactive Serum hepatitis C virus antibody detection Non-[place] ctive Non-Reactive Capillary blood glucose measurement by g lucometer (mass/volume) - 02/18/20 16:43 Capillary blood glucose measurement by glucometer (mas s/volume) 303 mg/dL 70-110 Bacterial blood culture - 02/18/20 17:02 Bacterial blood culture NG NRG Bacterial blood culture - 02/18/20 17:09 Bacterial blood culture NG NRG Bacterial blood culture - 02/18/20 17:15 QUANTITY OF GROWTH Isolated NRG Bacterial blood culture [id number] NR Capillary blood glucose measurement by g [...] by glucometer (mas s/volume) 93 mg/dL 70-110 Capillary blood glucose measurement by g lucometer (mass/volume) - 03/31/20 12:01 Capillary blood glucose measurement by glucometer (mas s/volume) 76 mg/dL 70-110 Complete blood count (CBC) with automate d white blood cell (WBC) differential - 03/31/20 12:06 Blood leukocytes automated count (number/volume) 11.9 10*3/uL 4.3-11.0 Blood erythrocytes automated count (number/volume) 4.85 10*6/uL 4.35-5.85 Venous blood hemoglobin measurement (mass/volume) 14.3 g/dL 11.5-16.0 Blood hematocrit (volume fraction) 44 % 35-52 Automated erythrocyte mean corpuscular volume 91 [ foz_us] 80-99 Automated erythrocyte mean corpuscular h emoglobin (mass per erythrocyte) 29 pg 25-34 Automated erythrocyte mean corpuscular h emoglobin concentration measurement (mass/volume) 32 g/dL 32-36 Automated erythrocyte distribution width ratio 17. 9 % 10.0- 14.5 Automated blood platelet count (count/volume) 276 10*3/uL 130-400 Automated blood platelet mean volume measurement 10.1 [foz_us] 7.4-10.4 Automated blood neutrophils/100 leukocytes 68 % 42-75 Automated blood lymphocytes/100 leukocytes 17 % 12-44 Blood monocytes/100 leukocytes 7 % 0-12 Automated blood eosinophils/100 leukocytes 4 % 0-10 Automated blood basophils/100 leukocytes 1 % 0-10 Blood neutrophils automated count (number/volume) 8.0 10*3 1.8-7.8 Blood lymphocytes automated count (number/volume) 2.0 10*3 1.0-4.0 Blood monocytes automated count (number/volume) 0. 8 10*3 0.0-1.0 Automated eosinophil count 0.5 10*3/uL 0 .0-0.3 Automated blood basophil count (count/volume) 0.1 10*3/uL 0.0-0.1 Comprehensive metabolic panel - 03/31/20 12:06 Serum or plasma sodium measurement (moles/volume) 134 mmol/L 135-145 Serum or plasma potassium measurement (moles/volume) 3.1 mmol/L 3.6-5.0 Serum or plasma chloride measurement (moles/volume) 86 mmol/L 98-107 Carbon dioxide 31 mmol/L 21-32 Serum or plasma anion gap determination (moles/volume) 17 mmol/L 5-14 Serum or plasma urea nitrogen measurement (mass/volume ) 45 mg/dL 7-18 Serum or plasma creatinine measurement (mass/volume) 1.37 mg/dL 0.60-1.30 Serum or plasma urea nitrogen/creatinine mass ratio 33 NRG Serum or plasma creatinine measurement w ith calculation of estimated glomerular filtration rate 40 NRG Serum or plasma glucose measurement (mass/volume) 77 mg/dL 70-105 Serum or plasma calcium measurement (mass/volume) 8.5 mg/dL 8.5-10.1 Serum or plasma total bilirubin measurement (mass/volu me) 0.7 mg/dL 0.1-1.0 Serum or plasma alkaline phosphatase wesley surement (enzymatic activity/volume) 119 U/L 40-136 Serum or plasma aspartate aminotransfera se measurement (enzymatic activity/volume) 38 U/L 5-34 Serum or plasma alanine aminotransferase measurement (enzymatic activity/volume) 21 U/L 0-55 Serum or plasma protein measurement (mass/volume) 6.5 g/dL 6.4-8.2 Serum or plasma albumin measurement (mass/volume) 2.8 g/dL 3.2-4.5 CALCIUM CORRECTED 9.5 mg/dL 8.5-10.1 Blood lactic acid measurement (moles/vol ume) - 03/31/20 12:06 Blood lactic acid measurement (moles/volume) 2.10 mmol/L 0.50-2.00 Capillary blood glucose measurement by g lucometer (mass/volume) - 03/31/20 13:13 Capillary blood glucose measurement by glucometer (mas s/volume) 47 mg/dL 70-110 Complete urinalysis with reflex to cultu re - 03/31/20 13:40 Urine color determination YELLOW NRG Urine clarity determination CLEAR NR G Urine pH measurement by test strip 5.0 5-9 Specific gravity of urine by test strip 1.025 1.016-1.022 Urine protein assay by test strip, semi-quantitative TRACE NEGATIVE Urine glucose detection by automated test strip NE GATIVE NEGATIVE Erythrocytes detection in urine sediment by light micr oscopy 1+ NEGATIVE Urine ketones detection by automated test strip TR MARVA NEGATIVE Urine nitrite detection by test strip NEGATIVE NEGATIVE Urine total bilirubin detection by test strip 1+ NEGATIVE Urine urobilinogen measurement by automated test strip (mass/volume) 1.0 mg/dL < = 1.0 Urine leukocyte esterase detection by dipstick 2+ NEGATIVE Automated urine sediment erythrocyte cou nt by microscopy (number/high power field) NONE NRG Automated urine sediment leukocyte count by microscopy (number/high power field) TNTC NRG Bacteria detection in urine sediment by light microsco py TRACE NRG Squamous epithelial cells detection in u rine sediment by light microscopy 5-10 NRG Crystals detection in urine sediment by light microsco py NONE NRG Casts detection in urine sediment by light microscopy PRESENT NRG Mucus detection in urine sediment by light microscopy NONE NRG Complete urinalysis with reflex to culture YES NRG Hyaline casts detection in urine sediment by light marvin roscopy 0-2 NRG Capillary blood glucose measurement by g lucometer (mass/volume) - 03/31/20 13:50 Capillary blood glucose measurement by glucometer (mas s/volume) > mg/dL 70-110 Serum or plasma lactate measurement (mol es/volume) - 03/31/20 14:28 Serum or plasma lactate measurement (moles/volume) 2.61 mmol/L 0.50-2.00 Capillary blood glucose measurement by g lucometer (mass/volume) - 03/31/20 15:42 Capillary blood glucose measurement by glucometer (mas s/volume) 73 mg/dL 70-110 Capillary blood glucose measurement by g lucometer (mass/volume) - 03/31/20 16:11 Capillary blood glucose measurement by glucometer (mas s/volume) > mg/dL 70-110 Serum or plasma lactate measurement (mol es/volume) - 03/31/20 16:28 Serum or plasma lactate measurement (moles/volume) 2.40 mmol/L 0.50-2.00 Encounters ACCT No. Visit Date/Time Discharge Status Pt. Type Provider Facility Loc./Unit Complaint [id number] 02/25/2020 13:20:00 13:40:00 DIS Inpatient KATELYN JENSEN DO, V ia [facility] IRF PARAPLEGIA [id number] 02/17/2020 21:40:00 13:20:00 DIS Outpatient KATELYN JENSEN DO Via [facility] 4TH DYSPNEA;HYPOXIA;PNEUMON IA;R/O COVID 19 [id number] 02/14/2020 13:13:00 17:11:00 DIS Emergency MADELINE BENÍTEZ MD Via [facility] ER FS CONSTIPATION [id number] 12/14/2019 14:11:00 15:05:00 DIS Outpatient KEYSHA KINGSLEY MD [facility] REHAB R LEG LYMPHEDEMA [id number] 01/16/2020 16:31:00 20:37:00 DIS Emergency MADELINE WOLFF DO [facility] ER FS SOA, HIGH BP, LOW O2 [id number] 11/11/2019 11:51:00 14:00:00 DIS Outpatient EDUARDO FISHER MD [facility] REHAB R LEG LYMPHEDEMA [id number] 11/30/2019 13:07:00 23:59:59 CLS Outpatient EDUARDO FISHER MD [facility] WOUNDCARE [id number] 11/16/2019 13:29:00 23:59:59 CLS Outpatient EDUARDO FISHER MD [facility] WOUNDCARE [id number] 11/09/2019 13:32:00 23:59:59 CLS Outpatient EDUARDO FISHER MD [facility] WOUNDCARE [id number] 11/02/2019 13:44:00 23:59:59 CLS Outpatient EDUARDO FISHER MD [facility] WOUNDCARE [id number] 10/26/2019 16:15:00 23:59:59 CLS Outpatient EDUARDO FISHER MD [facility] LAB NON PRESSURE CHRONIC IL CER OF R CALF [id number] 10/26/2019 14:29:00 23:59:59 CLS Outpatient EDUARDO FISHER MD [facility] WOUNDCARE [id number] 03/31/2020 16:00:[address] Inpatient KATELYN JENSEN DO Via [facility] ICU EXTENSIVE RASH,UTI,HYPOGLYCI MARVIN EPISODE [id number] 02/15/2020 08:21:00 Document Registration [id number] 02/12/2020 10:23:00 Document Registration
[2020-03-31] MEDS ORDERED: ONDANSETRON 4 MG (ZOFRAN) ORAL DISSOLVE TAB PO PRN (17:30)
[2020-03-31] MEDS ORDERED: ONDANSETRON 4 MG/2 ML (SDV) Z0FRAN IVP PRN (17:30)
[2020-03-31] MEDS ORDERED: ACETAMINOPHEN 500 MG TAB (TYLENOL) PO PRN (17:30)
[2020-03-31] MEDS ORDERED: diphenhydrAMINE 25 MG TAB (BENADRYL) PO PRN (17:30)
[2020-03-31] MEDS ORDERED: DOCUSATE SODIUM 100 MG (COLACE) CAP PO PRN (17:30)
[2020-03-31] MEDS ORDERED: VANCOMYCIN INJECTION 0.1 MG in NS (IVPB) 250 ML IV SCH (17:30)
[2020-03-31] MEDS ORDERED: CALCIUM CARBONATE 500 MG (TUMS) TAB.CHEW PO PRN (17:30)
[2020-03-31] MEDS ORDERED: MELATONIN 3 MG TABLET PO PRN (17:30)
--- NOTE | 2020-03-31 20:10 | NUR ---
PATIENT RECEIVED 1500MG VANCOMYCIN ON 03/31 @ 1600 IN [facility] ED; WEIGHT 149KG, SCr 1.37, CrCl 66.9; MAINTENANCE DOSE 15MG/KG X 149KG= 2235 ~ 2G Q12H; WILL START DOSE 2H EARLY SINCE LOADING DOSE WAS <20MG/KG; VANCOMYCIN TROUGH DUE 04/02 @ 0100, IF TROUGH >20, HOLD DOSE AND NOTIFY PHARMACY FOR ADJUSTMENTS. Addendum: 04/02/20 at 0740 by ANA [facility] Vanco trough 04/02 @ 0100 - 30.9. Will repeat trough 04/02 @ 1200. Addendum: 04/02/20 at 1313 by ANA [facility] Repeat trough @ , . Will continue hold Vanco and repeat at trough @ 1999. If the 1999 trough is less than 20, will start Vancomycin at 1gm every 8 hours.
--- NOTE | 2020-03-31 20:44 | History & Physical-Hospitalist ---
History of Present Illness HPI/Chief Complaint CC: Sepsis with rash and UTI HPI: This is a 54yoWF ML [facility] NHP of Dr Gifford known to me from IRF stay who just completed Levaquin for 6 weeks for osteomyelitis of T9-T10 who remains with in-swelling catheter due to neurogenic bladder who presents to the [facility] ER with rash and weakness and found to have findings c/w severe sepsis due to UTI so she was placed on IVF per protocol and empirically placed on Meropenem and Vancomycin and transferred to ICU. She recognizes me but a poor historian due to acute illness currently. Patient has mottling in her extremities but BP remains stable but O2 saturation was 80% during transport prior to adjusting O2 supplementation. Patient denies pain. 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 To note she presented to the [facility] ER on 02/11 for back pain lumbar spine revealed no fracture except T11 compression fracture which was chronic and treated for constipation then returned the following day for continued constipation and weakness of her legs which was assessed to be right sided sciatica brought on by severe obesity and then returned back to ER unable to be cared for at home due to morbid obesity and essentially too weak to stand on her legs so she was admitted to PR and returned 4 days later with respiratory insufficiency and CT scans revealed the destructive lesion at T9-T10 that is causing the spinal cord injury. Patient will require psych evaluation and management for chronic mental illness flared due to this catastrophic event. DC note 02/17-02/24: Hospital course: patient had a lengthy course after she was admitted for paralysis of legs and back pain and respiratory insufficiency. CT obtained revealing destructive process ( Findings are worrisome for advanced T9- T10 vertebral osteomyelitis and intervertebral discitis with posterior cortical breakthrough. Further characterization with contrast-assisted thoracic spinal MRI recommended as further evaluation. Sequelae of neoplasm less likely but cannot be absolutely excluded). Levaquin initiated but BCx were all negative. Lovenox maintained for DVt PPx. Vapotherm required with IV steroids and eventually she was weaned off Vapotherm after IV diuresis successful for volume overload. Multiple physicians were updated along with Alan Schumacher, Chance, Dany along with 4 multiple attempts to [facility] for transfer which upon review of clouded images Dr Gomez BROWN stated after 1 week of abx there is no possibility of surgical options that would benefit the patient and if MRI could be obtained in the future some sort of re-consultation could be entertained but also the pandemic fo COVID-19 was also relevant in limitations of transfer and considering she could not be transferred to due to severe respiratory failure. Patient was assessed to be a candidate for IRF even if it was only for wheelchair mobility and family expressed intentions to help when she returned home and she was moved to IRF for structured rehab protocol. Patient remains with romero cath and has fecal incontinence. Source: patient, RN/MD, EMS notes reviewed, retirement records, old records Exam Limitations: clinical condition Date Seen 03/31/20 Time Seen by a Provider: 18:40 Attending Physician Lisa Jensen DO PCP Self,Thad NGUYỄN Referring Physician Date of Admission March 31, 2020 at 16:00 Home Medications & Allergies Home Medications Reviewed patient Home Medication Reconciliation performed by pharmacy medication reconciliations clinical technician and/or nursing. Patients Allergies have been reviewed. Allergies Allergies Coded Allergies adhesive tape (Unverified Allergy, Unknown, 01/16/20) Past Sumdetm-Qjvfgi-Xcisvy Hx Past Med/Social Hx: Reviewed Nursing Past Med/Soc Hx, Reviewed and Corrections made Patient Social History Marrital Status: single Employed/Student: retired ([employer]) Alcohol Use: Denies Use Recreational Drug Use: No Smoking Status: Former Smoker Former Smoker, Quit: Sep 19, 2016 Type Used: Cigarettes 2nd Hand Smoke Exposure: No Recent Foreign Travel: Yes Contact w/other who traveled: No Recent Hopitalizations: Yes (PNE) Recent Infectious Disease Expo: No Immunizations Up To Date Date of Pneumonia Vaccine: Sep 27, 2019 Date of Influenza Vaccine: Sep 27, 2019 Seasonal Allergies Seasonal Allergies: No Past Medical History Surgeries: Abdominal (gastric bypass), Gallbladder gastric bypass Respiratory: Sleep Apnea night time hypoxia Currently Using CPAP: No Cardiac: Chronic Edema/Swelling, High Cholesterol, Hypertension Neurological: Paralysis, Spinal Cord Injury Genitourinary: Neurogenic Bladder neurogenic bladder from spinal cord injury romero cath in place Gastrointestinal: Gastroesophageal Reflux, Chronic Constipation Musculoskeletal: Degenerate Disk Disease, Chronic Back Pain Endocrine: Diabetes, Non-Insulin dep Psychosocial: Anxiety, Bipolar, Depression History of Blood Disorders: No Family History Diabetes, Hypertension, Renal Disease Review of Systems Constitutional: see HPI, malaise, weakness Skin: rash Physical Exam Physical Exam Vital Signs Vital Signs - First Documented 03/31/20 11:50 Temp 35.7 Pulse 96 Resp 18 B/P (MAP) 106/78 (87) Pulse Ox 100 O2 Delivery Room Air Capillary Refill : Less Than 3 Seconds Height, Weight, BMI Height: '65.00" Weight: 346lbs. oz. kg; 56.42 BMI Method: General Appearance: Anxious, Chronically ill Eyes: Right Eye Normal Inspection, Right Eye PERRL HEENT: PERRL/EOMI, Normal ENT Inspection, Pharynx Normal, Moist Mucous Membranes Neck: Full Range of Motion, Normal Inspection, Non Tender Respiratory: Chest Non Tender, Lungs Clear, No Accessory Muscle Use, No Respiratory Distress, Decreased Breath Sounds Cardiovascular: Regular Rate, Rhythm, No Edema, No Gallop, No JVD, No Murmur, Normal Peripheral Pulses Gastrointestinal: Normal Bowel Sounds, No Organomegaly, No Pulsatile Mass, Non Tender, Soft Back: Normal Inspection, No CVA Tenderness, No Vertebral Tenderness Extremity: No Pedal Edema, Slow Capillary Refill Neurologic/Psychiatric: Alert, Oriented x3, Normal Mood/Affect, cement mixer II-XII Norm as Tested, Motor Weakness (paraplegia) Skin: Cool, Damp, Mottled Lymphatic: No Adenopathy Results Results/Procedures Labs Laboratory Tests 03/31/20 12:06 03/31/20 21:25 Patient resulted labs reviewed. Assessment/Plan Admission Diagnosis Assessment: Sepsis UTI likely ESBL resistant organism given in-dwelling catheter and just completed Levaquin 2 days ago placed on Meropenem and Vanc Hypoxia with mottling of extremities T9 paraplegia due to osteomyelitis of spine Plan: ICU Monitor closely IV abx Await UCx IVF Pressor therapy if needed IRF assessments: Assessment: (1) Paraplegia at T9 level ICD Codes: G82.20 - Paraplegia, unspecified (2) Acute osteomyelitis of spine Status: Acute ICD Codes: M46.20 - Osteomyelitis of vertebra, site unspecified (3) Romero catheter in place ICD Codes: Z96.0 - Presence of urogenital implants (4) Neurogenic bladder ICD Codes: N31.9 - Neuromuscular dysfunction of bladder, unspecified (5) Chronic mental illness ICD Codes: F99 - Mental disorder, not otherwise specified (6) Depression ICD Codes: F32.9 - Major depressive disorder, single episode, unspecified (7) H/O gastric bypass ICD Codes: Z98.84 - Bariatric surgery status (8) Fecal incontinence ICD Codes: R15.9 - Full incontinence of feces (9) Acute respiratory failure with hypoxia Status: Acute ICD Codes: J96.01 - Acute respiratory failure with hypoxia (10) T2DM (type 2 diabetes mellitus) Status: Chronic ICD Codes: E11.9 - Type 2 diabetes mellitus without complications (11) Paresthesia of both legs Status: Acute ICD Codes: R20.2 - Paresthesia of skin (12) RLS (restless legs syndrome) Status: Chronic ICD Codes: G25.81 - Restless legs syndrome (13) Elevated liver function tests Status: Acute ICD Codes: R94.5 - Abnormal results of liver function studies (14) HLD (hyperlipidemia) Status: Chronic ICD Codes: E78.5 - Hyperlipidemia, unspecified (15) HTN (hypertension) Status: Chronic ICD Codes: I10 - Essential (primary) hypertension (16) Morbid obesity Status: Chronic ICD Codes: E66.01 - Morbid (severe) obesity due to excess calories (17) Shortness of breath Status: Acute ICD Codes: R06.02 - Shortness of breath (18) Hypoxia Status: Acute ICD Codes: R09.02 - Hypoxemia GERD (1) Paraplegia at T9 level (2) Acute osteomyelitis of spine Status: Acute (3) Romero catheter in place (4) Neurogenic bladder (5) Chronic mental illness (6) Depression (7) H/O gastric bypass (8) Fecal incontinence (9) Acute respiratory failure with hypoxia Status: Acute (10) T2DM (type 2 diabetes mellitus) Status: Chronic (11) Paresthesia of both legs Status: Acute (12) RLS (restless legs syndrome) Status: Chronic (13) Elevated liver function tests Status: Acute (14) HLD (hyperlipidemia) Status: Chronic (15) HTN (hypertension) Status: Chronic (16) Morbid obesity Status: Chronic (17) Shortness of breath Status: Acute (18) Hypoxia Status: Acute Admission Status: Inpatient Order (span 2 midnights) Reason for Inpatient Admission: sepsis Diagnosis/Problems Diagnosis/Problems (1) Sepsis (2) UTI (urinary tract infection) Status: Acute Qualifiers: Urinary tract infection type: acute cystitis Hematuria presence: with hematuria Qualified Codes: N30.01 - Acute cystitis with hematuria (3) Paraplegia at T9 level (4) H/O gastric bypass (5) Rash Status: Acute (6) Hypoglycemia Status: Acute (7) T2DM (type 2 diabetes mellitus) Status: Chronic (8) Acute respiratory failure with hypoxia Status: Acute (9) Chronic mental illness (10) Romero catheter in place (11) Paresthesia of both legs Status: Acute (12) RLS (restless legs syndrome) Status: Chronic (13) Neurogenic bladder (14) Morbid obesity Status: Chronic (15) Fecal incontinence Clinical Quality Measures DVT/VTE Risk/Contraindication: Risk Factor Score Per Nursin RFS Level Per Nursing on Admit: 4+=Very High LISA JENSEN DO March 31, 2020 20:44
[2020-03-31] MEDS ORDERED: ENOXAPARIN 40 MG/0.4 ML (LOVENOX) SYR SC SCH (21:00)
[2020-03-31] MEDS: ENOXAPARIN 60 MG/0.6 ML (LOVENOX) SYR SC SCH (21:33)
[2020-03-31] MEDS: SENNA W/DOCUSATE (SENOKOT S) TABLET PO SCH (21:35)
[2020-03-31] MEDS: MEROPENEM 500 MG in WATER (STERILE) FOR INJECTION 10 ML IV SCH (21:35)
[2020-03-31 21:53] LABS: CALCIUM 7.7 MG/DL (8.5-10.1); CREATININE SERUM 1.22 MG/DL (0.60-1.30); MAGNESIUM 1.6 MG/DL (1.6-2.4); POTASSIUM 3.5 MMOL/L (3.6-5.0)
[2020-03-31] MEDS ORDERED: methylPREDNISolone 125 MG (Solu-MEDROL) VIAL IVP ONE (22:15)
[2020-03-31] MEDS ORDERED: diphenhydrAMINE 50 MG/ML INJ (BENADRYL) IVP ONE (22:15)
[2020-03-31] MEDS ORDERED: FAMOTIDINE 20MG/2ML IV (PEPCID) IVP ONE (22:15)
--- NOTE | 2020-03-31 22:15 | NUR ---
INFORMED DR. MUNIZ OF TELEICU OF PATIENT BLOOD PRESSURE READINGS . PATIENT ALERT AND ANSWERING QUESTIONS APPROPRIATELY. ORDER GIVEN FOR IV BOLUS, AND TO GET CENTRAL LINE AND ART LINE PLACED. PATIENT IS MOTTLED UPPER EXTREMITIES AND UNABLE TO GET LAB DRAWS WELL. DR. ENNIS NOTIFIED AND BENITO GABRIEL FOR PLACEMENT.
[2020-03-31] MEDS ORDERED: AMIODARONE INJECTION 450 MG in D5W IV SOLUTION (EXCEL) 250 ML IV SCH (22:45)
[2020-03-31] MEDS: inSUlin ASPART (NovoLOG) 1 UNIT/0.01 ML (CHARGE PER UNIT) SC SCH (22:45)
[2020-03-31] MEDS ORDERED: LIDOCAINE 1% INJ 20 ML 20 ML VIAL ONE (22:59)
--- NOTE | 2020-03-31 23:26 | Anesthesia-Procedure Note ---
Procedures/Interventions Procedure Start/Stop/Diagnosis Date of Procedure: March 31, 2020 Start Time: 23:00 Stop Time: 23:20 Arterial Line Arterial Line Catheter: 20G Type: Radial Location: Right Procedure: prepped, draped in sterile fashion, 1% lidocaine used to numb region, good wave-form was obtained, patient tolerated procedure well, no immediate complications, post procedure area cleaned, post procedure dressing applied HARVEY DE LA ROSA CRNA March 31, 2020 23:26
--- NOTE | 2020-03-31 23:30 | NUR ---
CENTRAL LINE PLACED BY DR. ENNIS - VERIFIED BY XRAY AND ABLE TO USE. ART LINE PLACED BY BENITO GABRIEL. PATIENT TOLERATED WELL. COMPLAINS OF SOME PAIN.
--- NOTE | 2020-03-31 23:41 | CONSULTATION REPORT ---
DATE OF SERVICE: 03/31/2020 ATTENDING PRIMARY CARE PHYSICIAN: Dr. Thad Gifford. ADMITTING PHYSICIAN: Dr. Sheffield. HISTORY OF PRESENT ILLNESS: The patient is a 54-year-old female who is a detention patient. She was brought to [facility] with weakness, rash and severe sepsis due to urinary tract infection. Since being transferred to [facility] intensive care unit, her systolic blood pressure has been in the 80s. She has a very poor peripheral venous circulation and will require multiple IV medications, drips as well as vasopressors. PAST MEDICAL HISTORY: Diabetes, peripheral neuropathy, degenerative joint disease, sciatica, morbid obesity, lower extremity paralysis, hypercholesterolemia, hypertension, bilateral lower extremity edema, sleep apnea, diabetes, anxiety, depression, bipolar disorder, neurogenic gallbladder. PAST SURGICAL HISTORY: Benja-en-Y gastric bypass, cholecystectomy. ALLERGIES: ADHESIVE TAPE. MEDICATIONS: Alprazolam 0.25 mg q.8 hours p.r.n., aripiprazole 5 mg daily, atorvastatin 40 mg daily, baclofen 10 mg daily, Celebrex 400 mg daily, Lovenox 60 mg b.i.d., gabapentin 300 mg t.i.d., detemir insulin 10 units at bedtime, levofloxacin 750 mg daily, metformin 500 mg b.i.d., oxycodone p.r.n., Protonix 40 mg daily, potassium 20 mEq daily, ropinirole 1 mg daily, thiamine daily, topiramate 25 mg daily, torsemide 100 mg b.i.d., venlafaxine 75 mg q.i.d., zonisamide 200 mg b.i.d. SOCIAL HISTORY: Previous smoker, quit 2017, 40 pack years. Negative alcohol. FAMILY HISTORY: Noncontributory. VITAL SIGNS: Temperature 36.8, blood pressure 72/43, pulse 90, respirations 24, pulse ox 91% on 3 liters nasal cannula. REVIEW OF SYSTEMS: This is an obese female, who is awake and alert and does answer majority of questions appropriately. She does not report any shortness of breath or difficulty breathing as well as no cough or sputum production. History of reflux. No nausea, vomiting. No hematemesis, no coffee ground emesis. No diarrhea, constipation, no red blood per rectum, no dark tarry stools. Possible fevers at her detention. No recent inadvertent weight loss. All other review of systems negative. PHYSICAL EXAMINATION: CHEST: Decreased breath sounds in bilateral bases. Distant breath sounds bilaterally. HEART: Regular, no murmurs. EXTREMITIES: A +2/3 bilateral lower extremity edema, negative Homans sign. HEENT: No scleral icterus. NECK: No cervical lymphadenopathy. ABDOMEN: Soft, nontender, nondistended. SKIN: Warm, dry. LABORATORY DATA: WBC 11.9, hemoglobin 14.3, hematocrit 44, platelets 276, BUN 40, creatinine 1.22. Urinalysis 2+ leukocyte esterase, trace bacteria. ASSESSMENT AND PLAN: A 54-year-old female with multiple medical comorbidities with septic shock, most likely secondary to urosepsis. She has very poor peripheral venous circulation and will require vasopressors and will require central venous catheter, which we will place. Job ID: [id number] DocumentID: [id number] Dictated Date: 03/31/2020 23:17:31 Automotive Exhaust Emissions Technician Date: 03/31/2020 23:40:17 Dictated By: BLAIR ENNIS MD
[2020-03-31] MEDS ORDERED: RT-ALBUTEROL/IPRATROPIUM 3 ML (DUONEB) VIAL INH PRN (23:45)
--- NOTE | 2020-03-31 23:45 | OPERATIVE REPORT ---
DATE OF SERVICE: 03/31/2020 ATTENDING PRIMARY CARE PHYSICIAN: Dr. Gifford. ADMITTING PHYSICIAN: Dr. Sheffield. PREOPERATIVE DIAGNOSES: Urosepsis and hypotension. POSTOPERATIVE DIAGNOSES: Urosepsis and hypotension. PROCEDURE: Placement of left subclavian central venous catheter. SURGEON: Blair Snow MD ANESTHESIA: Local. ESTIMATED BLOOD LOSS: Minimal. DISPOSITION: The patient tolerated the procedure well. INDICATIONS: The patient is a 54-year-old female who was seen at [facility] with weakness and had a diffuse rash as well as found to be significantly hypotensive. She was transferred to [facility] intensive care unit where her systolic blood pressure was in the 70s and 80s. She has a history of significant degenerative joint disease and is paraplegic and also has neurogenic bladder. She will require a central venous catheter for IV pressors. DESCRIPTION OF PROCEDURE: The chest and neck were prepped and draped in standard surgical fashion. A 1% lidocaine was used to anesthetize the subclavian region. The left subclavian vein was then cannulated with drawing of venous blood. The guidewire was then inserted without any resistance. The cannulating needle removed, and a skin incision made using 11 blade. A tract was then created using a venous dilator. A triple lumen central venous catheter was then placed over the guidewire using Seldinger technique. Guidewire was then removed, and all three ports koby venous blood and saline pushed in without any resistance. Catheter was sutured to the skin using 3-0 silk interrupted sutures. Catheter was then cleaned and covered with Op-Site. The patient tolerated the procedure well. We will get a post-procedure chest x-ray. Job ID: [id number] DocumentID: [id number] Dictated Date: 03/31/2020 23:20:27 Ingredient Specialist Date: 03/31/2020 23:44:23 Dictated By: BLAIR SNOW MD
[2020-04-01] VITALS (23 sets, daily range): BP systolic 84–157; BP diastolic 30–74
[2020-04-01 00:16] LABS: ALANINE AMINOTRANSFERASE 19 U/L (0-55); ALBUMIN 2.7 GM/DL (3.2-4.5); ALKALINE PHOSPHATASE 101 U/L (40-136); BILIRUBIN,DIRECT 0.4 MG/DL (0.0-0.3); BILIRUBIN,INDIRECT 0.2 MG/DL; BILIRUBIN,TOTAL 0.6 MG/DL (0.1-1.0); TOTAL PROTEIN 5.6 GM/DL (6.4-8.2)
[2020-04-01] MEDS: HYDROmorphone 2 MG/ML VIAL (DILAUDID) IVP PRN ×2 (01:02→18:12)
[2020-04-01] MEDS ORDERED: NS IV 1000 ML 1,000 ML IV SCH (01:45)
[2020-04-01] MEDS: VANCOMYCIN 2000 MG/NS 500 ML IVPB IV SCH ×4 (02:07→13:33)
[2020-04-01] MEDS ORDERED: diphenhydrAMINE 50 MG/ML INJ (BENADRYL) ONE (03:18)
[2020-04-01] MEDS: inSUlin ASPART (NovoLOG) 1 UNIT/0.01 ML (CHARGE PER UNIT) SC SCH ×5 (03:19→17:18)
[2020-04-01] MEDS: NS IV 1000 ML 1,000 ML IV SCH ×8 (03:19→17:38)
[2020-04-01] MEDS ORDERED: methylPREDNISolone 125 MG (Solu-MEDROL) VIAL ONE (03:19)
[2020-04-01 03:29] LABS: BASOPHILS # (AUTO) 0.1 10^3/uL (0.0-0.1); BASOPHILS % (AUTO) 1 % (0-10); EOSINOPHILS # (AUTO) 0.2 10^3/uL (0.0-0.3); EOSINOPHILS % (AUTO) 2 % (0-10); HEMATOCRIT 37 % (35-52); LYMPHOCYTES % (AUTO) 10 % (12-44); MEAN CORPUSCULAR HEMOGLOBIN 29 PG (25-34); MEAN CORPUSCULAR HGB CONC 32 G/DL (32-36); MEAN CORPUSCULAR VOLUME 91 FL (80-99); MONOCYTES # (AUTO) 0.4 X 10^3 (0.0-1.0); MONOCYTES % (AUTO) 4 % (0-12); NEUTROPHILS # (AUTO) 8.1 X 10^3 (1.8-7.8); NEUTROPHILS % (AUTO) 83 % (42-75); PLATELET COUNT 201 10^3/uL (130-400); RED CELL DISTRIBUTION WIDTH 17.7 % (10.0-14.5); WHITE BLOOD COUNT 9.7 10^3/uL (4.3-11.0)
--- NOTE | 2020-04-01 03:38 | Pulmonary Consultation ---
History of Present Illness History of Present Illness Date Seen by Provider: April 01, 2020 Time Seen by Provider: 03:33 Date of Admission History of Present Illness 54yo poor historian with hx of recent admission, DM, morbid obesity and gastric bypass, paraplegic, recent admission for acute worsening respiratory failure presented to ED secondary to worsening SOB, and rash over chest, neck and face. No f/ns/chills. admitted to ICU for close observation. Allergies and Home Medications Allergies Coded Allergies: adhesive tape (Unverified Allergy, Unknown, 01/16/20) Home Medications Alprazolam 0.25 Mg Tablet, 0.25 MG PO Q8H PRN for ANXIETY, (Reported) CAN TAKE 1 TAB EVERY 8 HOURS DURING THE DAY- IF THE PT HAS NOT HAD MORE THEN 2 DOSES DURING THE DAY THEN PT CAN HAVE 2 TABS AT BEDTIME. MAY NOT EXCEED 4 TABS PER 24 HOURS Alprazolam 0.25 Mg Tablet, 0.5 MG PO HS PRN for ANXIETY CAN TAKE 1 TAB EVERY 8 HOURS DURING THE DAY- IF THE PT HAS NOT HAD MORE THEN 2 DOSES DURING THE DAY THEN PT CAN HAVE 2 TABS AT BEDTIME. MAY NOT EXCEED 4 TABS PER 24 HOURS Prescribed by: KATELYN JENSEN on 03/15/20 0655 Aripiprazole 5 Mg Tablet, 5 MG PO DAILY, (Reported) Atorvastatin Calcium 40 Mg Tablet, 40 MG PO DAILY, (Reported) Baclofen 10 Mg Tablet, 10 MG PO Q6HR PRN for PAIN-MODERATE (5-7) Prescribed by: KATELYN JENSEN on 03/15/2055 Calcium Carbonate/Vitamin D3 1 Each Tablet, 1 EACH PO DAILY, (Reported) Celecoxib 400 Mg Capsule, 400 MG PO DAILY, (Reported) Cholecalciferol (Vitamin D3) 50 Mcg Capsule, 50 MCG PO DAILY, (Reported) Docusate Sodium 100 Mg Capsule, 100 MG PO BID, (Reported) Enoxaparin Sodium 60 Mg/0.6 Ml Syringe, 60 MG SC Q12HR Prescribed by: KATELYN JENSEN on 03/15/20 06 Ergocalciferol (Vitamin D2) 1,250 Mcg Capsule, 1,250 MCG PO SUE HORN, (Reported) Gabapentin 300 Mg Capsule, 300 MG PO TID, (Reported) Insulin Determir 1,000 Units/10 Ml Soln, 10 UNIT SQ HS Prescribed by: KATELYN JENSEN on 03/15/20654 Lactobacillus Acidophilus/Pect 1 Each Capsule, 2 EACH PO TIDWM Prescribed by: KATELYN JENSEN on 03/15/20654 Levofloxacin 750 Mg Tablet, 750 MG PO DAILY Prescribed by: KATELYN JENSEN on 03/15/20654 Melatonin 3 Mg Tablet, 3 MG PO HS PRN for INSOMNIA Prescribed by: KATELYN JENSEN on 03/15/20654 Metformin HCl 500 Mg Tablet, 250 MG PO DAILY, (Reported) TAKES OF A 500MG TAB DAILY Multivitamin 1 Each Tablet, 1 EACH PO DAILY, (Reported) Ondansetron 4 Mg Tab.rapdis, 4 MG PO Q6H PRN for NAUSEA/VOMITING-1ST LINE Prescribed by: KATELYN JENSEN on 03/15/20654 Oxycodone HCl 10 Mg Tab.er.12h, 10 MG PO Q12H Prescribed by: KATELYN JENSEN on 03/15/20654 Oxycodone HCl 5 Mg Tablet, 10 MG PO Q4H PRN for PAIN-MODERATE (5-7) Prescribed by: KATELYN JENSEN on 03/15/20654 Pantoprazole Sodium 40 Mg Tablet.dr, 40 MG PO DAILY Prescribed by: KATELYN JENSEN on 03/15/20654 Polyethylene Glycol 3350 17 Gm Powd.pack, 17 GM PO DAILY, (Reported) Potassium Chloride 20 Meq Tablet.er, 20 MEQ PO DAILY, (Reported) Ropinirole HCl 1 Mg Tablet, 1 MG PO HS Prescribed by: KATELYN JENSEN on 03/15/20654 Sennosides/Docusate Sodium 1 Each Tablet, 1 EA PO BID Prescribed by: KATELYN JENSEN on 03/15/20654 Thiamine HCl 250 Mg Tablet, 250 MG PO DAILY, (Reported) Topiramate 25 Mg Tablet, 25 MG PO DAILY, (Reported) Torsemide 100 Mg Tablet, 50 MG PO BID, (Reported) TAKES TAB OF 100MG TO EQUAL 50MG TWICE DAILY Venlafaxine HCl 75 Mg Tab, 75 MG PO QID, (Reported) Vitamin A & D 60 Gm Oint, 0 GM TOP BID Prescribed by: KATELYN JENSEN on 03/15/20654 Zonisamide 100 Mg Capsule, 200 MG PO BID, (Reported) TAKES 2 (100MG) CAPS TO EQUAL 200MG TWICE DAILY [Lidocaine 4% Patch] 1 EA PATCH, 1 EA TOP DAILY Prescribed by: KATELYN JENSEN on 03/15/20 0655 Past Iyxnssq-Frbhjm-Iphrfb Hx Past Med/Social Hx: Reviewed Nursing Past Med/Soc Hx, Reviewed and Corrections made Patient Social History Alcohol Use: Denies Use Recreational Drug Use: No Smoking Status: Former Smoker Type Used: Cigarettes Former Smoker, Quit: Sep 19, 2016 2nd Hand Smoke Exposure: No Recent Foreign Travel: Yes Contact w/Someone Who Travel: No Recent Infectious Disease Expo: No Recent Hopitalizations: Yes (PNE) Physical Abuse: No Sexual Abuse: No Mistreated: No Fear: No Immunizations Up To Date Date of Pneumonia Vaccine: Sep 27, 2019 Date of Influenza Vaccine: Sep 27, 2019 Seasonal Allergies Seasonal Allergies: No Past Medical History Surgeries: Yes (Gastric bypass, c- section , gall, carpal tunnel release bilat,) Abdominal (gastric bypass), Gallbladder Respiratory: Yes Sleep Apnea Currently Using CPAP: No Cardiac: Yes Chronic Edema/Swelling, High Cholesterol, Hypertension Neurological: No Paralysis, Spinal Cord Injury Genitourinary: Yes (incot-r/t lasix at home) Neurogenic Bladder Gastrointestinal: Yes Gastroesophageal Reflux, Chronic Constipation Musculoskeletal: No (Restless leg syndrome) Degenerate Disk Disease, Chronic Back Pain Endocrine: Yes Diabetes, Non-Insulin dep HEENT: No Cancer: No Psychosocial: Yes Anxiety, Bipolar, Depression Integumentary: No Blood Disorders: No Family Medical History Diabetes, Hypertension, Renal Disease Review of Systems Time Seen by Provider: 03:41 Constitutional: Weakness, Malaise; No: Fever, Chills, Sweats, Other Eyes: No: Pain, Vision change, Conjunctivae inflammation, Eyelid inflammation, Other, Redness ENT: Nose congestion; No: Ear pain, Ear discharge, Nose pain, Nose discharge, Mouth pain, Mouth swelling, Throat pain, Throat swelling, Other Respiratory: Cough, Dry, Shortness of breath, SOB with excertion, Wheezing Cardiovascular: Palpitations, Paroxysmal Noc. Dyspnea Gastrointestinal: No: Nausea, Vomiting, Abdominal Pain, Diarrhea, Constipation, Melena, Hematochezia, Other Genitourinary: Dysuria, Frequency, Incontinence Sepsis Event Evaluation Height, Weight, BMI Height: '65.00" Weight: 346lbs. oz. kg; 56.42 BMI Method: Exam Exam Vital Signs Date Time Temp Pulse Resp B/P (MAP) Pulse Ox O2 Delivery O2 Flow Rate FiO2 04/01/20 03:00 91 12 94/30 (51) 100 Nasal Cannula 3.00 04/01/20 02:00 90 12 100/34 (56) 100 Nasal Cannula 3.00 04/01/20 01:00 90 04/01/20 01:00 92 16 84/44 (57) 99 Nasal Cannula 3.00 04/01/20 00:06 35.8 04/01/20 00:00 90 18 124/55 (78) 99 Nasal Cannula 3.00 04/01/20 00:00 Nasal Cannula 3.00 03/31/20 23:47 Nasal Cannula 3.00 03/31/20 23:16 80 99 03/31/20 23:00 89 20 107/48 (67) 100 Nasal Cannula 3.00 03/31/20 22:00 90 24 72/43 (53) 91 Nasal Cannula 3.00 03/31/20 21:00 88 12 53/51 (52) 100 Nasal Cannula 3.00 03/31/20 20:45 84 13 118/51 (73) 100 Nasal Cannula 3.00 03/31/20 20:15 80 12 123/96 (105) 100 Nasal Cannula 3.00 03/31/20 20:00 36.1 03/31/20 20:00 80 12 121/72 (88) 100 Nasal Cannula 3.00 03/31/20 19:00 82 18 102/72 (82) 100 Nasal Cannula 3.00 03/31/20 19:00 79 03/31/20 17:45 36.8 76 18 98/75 (87) 100 03/31/20 11:50 35.7 96 18 106/78 (87) 100 Room Air I & O 04/01/20 07:00 Intake Total 3000 ml Output Total 1450 ml Balance 1550 ml Height & Weight Height: '65.00" Weight: 346lbs. oz. kg; 56.42 BMI Method: General Appearance: Anxious, Chronically ill HEENT: PERRL/EOMI, Normal ENT Inspection, Pharynx Normal, Moist Mucous Membranes Neck: Full Range of Motion, Normal Inspection, Non Tender Respiratory: Chest Non Tender, Lungs Clear, No Accessory Muscle Use, No Respiratory Distress, Decreased Breath Sounds Cardiovascular: Regular Rate, Rhythm, No Edema, No Gallop, No JVD, No Murmur, Normal Peripheral Pulses Capillary Refill: Greater Than 3 Seconds Gastrointestinal: non tender, soft Extremity: No Pedal Edema, Slow Capillary Refill Neurologic/Psychiatric: Alert, Oriented x3, Normal Mood/Affect, brim molder II-XII Norm as Tested, Motor Weakness (paraplegia) Skin: Cool, Damp, Mottled Lymphatic: No Adenopathy Results Lab Laboratory Tests 03/31/20 12:06 03/31/20 21:25 Assessment/Plan Assessment/Plan Hypoxia -Oxygen -BiPAP PRN Sepsis with UTI -Currently on Merrem and vanco -IVF Anaphylaxis with rash -Give 125mg IV now then 40 Q 6 -Continue Benedryl and pepcid -Give epi 0.3mg IM x 1 -Monitor Dysphagia -Aspiration precautions Hypomag/hypophos -replace morbid obesity T9 paraplegia secondary to osteomyelitis - SHEILA OWENS DO April 01, 2020 03:38
[2020-04-01] MEDS ORDERED: EPINEPHrine INJECTION 1 MG/ML AMP IM ONE (03:45)
[2020-04-01 03:47] LABS: ALBUMIN 2.6 GM/DL (3.2-4.5); BILIRUBIN,TOTAL 0.4 MG/DL (0.1-1.0); CALCIUM 7.2 MG/DL (8.5-10.1); CREATININE SERUM 1.03 MG/DL (0.60-1.30); MAGNESIUM 1.5 MG/DL (1.6-2.4); PHOSPHORUS 4.5 MG/DL (2.3-4.7); POTASSIUM 3.3 MMOL/L (3.6-5.0); TOTAL PROTEIN 5.3 GM/DL (6.4-8.2)
[2020-04-01] MEDS ORDERED: methylPREDNISolone 125 MG (Solu-MEDROL) VIAL IVP ONE (04:00)
[2020-04-01] MEDS: diphenhydrAMINE 50 MG/ML INJ (BENADRYL) IVP SCH ×5 (04:09→20:52)
[2020-04-01] MEDS: methylPREDNISolone 40 MG/ML (Solu-MEDROL) VIAL IV SCH ×4 (04:10→20:53)
[2020-04-01] MEDS: POTASSIUM CL 10MEQ/50ML IVPB 50 ML IV SCH ×6 (04:32→09:52)
[2020-04-01] MEDS: MAGNESIUM 1 GM/100 ML IVPB 100 ML IV SCH ×3 (04:32→07:25)
[2020-04-01] MEDS: MEROPENEM 500 MG in WATER (STERILE) FOR INJECTION 10 ML IV SCH ×4 (04:32→20:53)
--- NOTE | 2020-04-01 06:45 | NUR ---
PATIENT'S FINGERS/HANDS MOTTLED AND COLD. BLOOD SUGAR ATTEMPTED AND READ "OUT OF RANGE", BLOOD SUGAR TAKEN FROM ART LINE AND IT WAS 166. PATIENT IS ALSO CONCERNED ABOUT SWALLOWING, STATES HASN'T EATEN "IN AWHILE" AND IS WORRIED ABOUT CHOKING, DECLINES TAKING ANY PILLS BY MOUTH DUE TO THE WORRY OF CHOKING. TELEICU ORDERED BARIUM SWALLOW STUDY BUT IT WILL BE UNABLE TO BE COMPLETED THIS WEEKEND.
[2020-04-01] MEDS: RT-ALBUTEROL/IPRATROPIUM 3 ML (DUONEB) VIAL INH SCH ×2 (07:09→19:24)
[2020-04-01] MEDS: SENNA W/DOCUSATE (SENOKOT S) TABLET PO SCH ×2 (08:37→21:04)
[2020-04-01] MEDS: FAMOTIDINE 20MG/2ML IV (PEPCID) IVP SCH ×2 (08:38→20:52)
[2020-04-01] MEDS: ENOXAPARIN 60 MG/0.6 ML (LOVENOX) SYR SC SCH ×2 (08:39→19:32)
--- NOTE | 2020-04-01 09:12 | Diagnostic Imaging Report ---
EXAM: Portable erect AP chest at 1134 INDICATION: Central line placement In the interval since the exam performed earlier today at 12:32 PM a central venous catheter has been inserted on the left. The tip of the catheter overlies the cavoatrial junction and is in good position. There is no sign of a pneumothorax and the overall appearance of the chest has not changed significantly otherwise. IMPRESSION: There has been interval insertion of a central venous catheter on the left without apparent complication. The tip of the catheter overlies the cavoatrial junction. Dictated by: Dictated on workstation # [id number]
--- NOTE | 2020-04-01 10:28 | Physical Therapy Evaluation ---
PT Evaluation-General Medical Diagnosis Admission Date March 31, 2020 at 16:00 Medical Diagnosis: rash Onset Date: March 31, 2020 Therapy Diagnosis Therapy Diagnosis: weakness Height/Weight Height (Inches): 65.00 Weight (Pounds): 346 Precautions Precautions/Isolations: Aspiration, Fall Prevention, Standard Precautions, Pressure Ulcer Referral Physician: Nettie Reason for Referral: Evaluation/Treatment Medical History Pertinent Medical History: DM, GERD, HTN Additional Medical History T9-10 paraplegia; LE paralysis Current History Pt admitted to acute hospital with onset of rash. Reviewed History: Yes Social History Home: Prison Prior Prior Level of Function SCALE: Activities may be completed with or without assistive devices. 5-Zdtnhkmnme-mqqgxau completes the activity by him/herself with no assistance from a helper. 5-Set-up or Clean-up Assistance-helper sets up or cleans up; patient completes activity. [place] assists only prior to or following the activity. 4-Supervision or Touching Assistance-helper provides verbal cues and/or touching/steadying and/or contact guard assistance as patient completes activity. Assistance may be provided throughout the activity or intermittently. 3-Partial/Moderate Assistance-helper does LESS THAN HALF the effort. [place] lifts, holds or supports trunk or limbs, but provides less than half the effort. 2-Substantial/Maximal Assistance-helper does MORE THAN HALF the effort. [place] lifts or holds trunk or limbs and provides more than half the effort. 9-Olrwhooen-hllcmg does ALL the effort. Patient does none of the effort to complete the activity. Or, the assistance of 2 or more helpers is required for the patient to complete the activity. If activity was not attempted, code reason: 7-Patient Refused. 9-Not Applicable-not attempted and the patient did not perform the activity befo re the current illness, exacerbation or injury. 10-Not Attempted due to Environmental Limitations-(lack of equipment, weather re straints, etc.). 88-Not Attempted due to Medical Conditions or Safety Concerns. Bed Mobility: 1 Transfers (B,C,W/C): 1 (laura) Indoor Mobility (Ambulation): Dependent Stairs: Not Applicalbe pt is wheelchair bound and dependent for mobility. Pt resides in a [facility] in [facility] PT Evaluation-Current Subjective Agrees to PT. Reports she does not get out of bed at the senior living. Pain Comment: Pt complains of abdominal pain; nursing notified. Objective Patient Orientation: Person, Place, Time, Situation multiple attachments and monitors. ROM/Strength ROM Lower Extremities PROM WFL Strength Lower Extremities unable Integumentary/Posture Integumentary rash noted; refer to full nursing assessment. Bowel Incontinence: Yes Bladder Incontinence: White Cath Sensory Vision: Wears Glasses Hearing: Functional Transfers Roll Left to Right (QC): 1 Pt is dependent for all mobility including bed mobility laura required for out of bed transfer--not attempted ths date Gait Does the Patient Walk?: No and Walking Goal NOT indicated Treatment Co treat with OT to complete assessment. Pt has LE paralysis and is unable to move or use. Pt is dependent for all rolling and bed mobility. Placed pt in chair position in bed to faciliate upright posture to enhance deep breathing and address cardiovascular function. Pt not fully up in chair position but 1/2 to 3/4 way. Nurse present. As patient was upright, OT addressed use of UE to bring hands to her face/hair. Pt upright with needs met and nurse present post treatment. Assessment/Needs Pt presents with LE paralysis and is dependent for transfers and mobility. Will benefit from short term PT to address out of bed activity and set up of laura transfers when indicated. Rehab Potential: Guarded PT Highway Maintenance Technician Goals Highway Maintenance Technician Goals PT Highway Maintenance Technician Goals Time Frame: April 07, 2020 Roll Left & Right (QC): 2 Chair/Phh-lb-Lleec Xfer(QC): 1 (establish laura transfer with nursing. ) PT Plan Problem List Problem List: Activity Tolerance, Functional Strength, Safety, Transfer, Other Treatment/Plan Treatment Plan: Continue Plan of Care Treatment Plan: Bed Mobility, Education, Functional Activity Regulo, Safety, Transfers Treatment Duration: April 07, 2020 Frequency: 5 times per week Estimated Hrs Per Day: .25 hour per day Patient and/or Family Agrees t: Yes Safety Risks/Education Patient Education: Safety Issues Teaching Recipient: Patient Teaching Methods: Discussion Response to Teaching: Reinforcement Needed Time/GCodes Time In: 935 Time Out: 1000 Total Billed Treatment Time: 25 Total Billed Treatment visit EVM 25 (co treat with OT) BECKY HALL PT April 01, 2020 10:28
--- NOTE | 2020-04-01 11:19 | Occupational Therapy Eval ---
OT Evaluation-General/PLF Medical Diagnosis Admission Date March 31, 2020 at 16:00 Medical Diagnosis: rash/sepsis Onset Date: March 31, 2020 Therapy Diagnosis Therapy Diagnosis: Weakness Height/Weight Height (Inches): 65.00 Weight (Pounds): 346 Precautions Precautions/Isolations: Aspiration, Fall Prevention, Standard Precautions, Pressure Ulcer Referral Physician: Nettie Castillo Reason: Activity Tolerance, Self Care, Evaluation/Treatment, Strengthening/ROM Medical History Pertinent Medical History: DM, GERD, HTN Additional Medical History Gastric bypass, T9 paraplegia secondary to osteomyelitis Current History Pt. currently resident at [facility]. Was on rehab unit prior to this for weakness. Pt. came to hospital with UTI and sepsis secondary to indwelling catheter. Reviewed History: Yes Social History Home: Custodial Entry Into Home: Level Entry ADL-Prior Level of Function SCALE: Activities may be completed with or without assistive devices. 9-Evrmddymzv-owihrek completes the activity by him/herself with no assistance from a helper. 5-Set-up or Clean-up Assistance-helper sets up or cleans up; patient completes activity. [place] assists only prior to or following the activity. 4-Supervision or Touching Assistance-helper provides verbal cues and/or touching/steadying and/or contact guard assistance as patient completes activity. Assistance may be provided throughout the activity or intermittently. 3-Partial/Moderate Assistance-helper does LESS THAN HALF the effort. [place] lifts, holds or supports trunk or limbs, but provides less than half the effort. 2-Substantial/Maximal Assistance-helper does MORE THAN HALF the effort. [place] lifts or holds trunk or limbs and provides more than half the effort. 9-Mltpqvszp-myigfa does ALL the effort. Patient does none of the effort to complete the activity. Or, the assistance of 2 or more helpers is required for the patient to complete the activity. If activity was not attempted, code reason: 7-Patient Refused. 9-Not Applicable-not attempted and the patient did not perform the activity before the current illness, exacerbation or injury. 10-Not Attempted due to Environmental Limitations-(lack of equipment, weather restraints, etc.). 88-Not Attempted due to Medical Conditions or Safety Concerns. ADL PLOF Comments Pt. does not ambulate secondary to paraplegia. Pt. was on [facility] previous to transferring to [facility]. Receives full care at [facility] for ADL skills. Pt. requires laura lift for transfers. Self Care: Dependent Functional Cognition: Unknown OT Current Status Subjective Pt. does not report pain level, but reports pain in abdomen. Nursing notified. Pt. reports some itching from rash that is present all over body. Appearance Pt. in bed. Agrees to work with therapy. Mental Status/Objective Patient Orientation: Person, Place Attachments: Oxygen, Telemetry Current Glasses/Contacts: Yes Upper Extremity ROM Limited at shoulder and elbow. ADL-Treatment Toileting Hygiene (QC): 1 Other Treatments Pt. in bed. Pt. tearful and reports discomfort when therapy touches her. Pt. is able to move hands and wrists, but is limited in elbows and shoulders. Pt. has multiple lines and tubes. OT/PT co-treat due to level of skilled care needed. OT facilitates ADL skills while PT facilitates movement in bed. Pt. upset and tearful with any movement, and so therapy slowly attempts to put her bed in chair position. Pt. unable to rollon her own. Pt. verbalizes that this "feels weird" when she is sitting up, as she has not been out of bed very much at [facility]. Pt. is able to brush right side of head, but requires assistance to f inish. Pt. receiving medical care while therapy in room. Reports pain with any touch on abdomen. Nursing notified. All needs are met and pt. has call light when therapy leaves room. Pt. is encouraged to keep bed in chair position. Education OT Patient Education: Correct positioning, Modified ADL techniques, Progress toward Goal/Update tx plan, Purpose of tx/functional activities, Reviewed precautions, Rehab process, Transfer techniques Teaching Recipient: Patient Teaching Methods: Demonstration, Discussion Response to Teaching: Verbalize Understanding, Return Demonstration, Reinforcement Needed OT Short Term Goals Short Term Goals Time Frame: April 08, 2020 Eatin Oral hygiene: 3 OT Half-Way Goals Marketing Administrator Goals Time Frame: April 15, 2020 Eating (QC): 4 Oral Hygiene (QC): 4 Additional Goals: 3-ImproveStrength/Regulo 1=Demonstrate adherence to instructed precautions during ADL tasks. 2=Patient will verbalize/demonstrate understanding of assistive devices/modifi cations for ADL. 3=Patient will improve strength/tolerance for activity to enable patient to perform ADL's. Pt. will demonstrate independence with exercise program for UE strengthening. OT Education/Plan Problem List/Assessment Assessment: Decreased Activ Tolerance, Decreased UE Strength, Dependent Transfers, Impaired Bed Mobility, Impaired Coordination, Impaired Funct Balance, Impaired I ADL's, Impaired Self-Care Skills Discharge Recommendations Plan/Recommendations: Continue POC Therapy Discharge Recommendati: 24 Hour Supervision Treatment Plan/Plan of Care Treatment,Training & Education: Yes Patient would benefit from OT for education, treatment and training to promote independence in ADL's, mobility, safety and/or upper extremity function for ADL 's. Plan of Care: ADL Retraining, Functional Mobility, UE Funct Exercise/Act Treatment Duration: April 15, 2020 Frequency: 5 times per week Estimated Hrs Per Day: .25 hour per day Agreement: Yes Rehab Potential: Guarded Time/GCodes Start Time: 09:35 Stop Time: 10:00 Total Time Billed (hr/min): 25 Billed Treatment Time 1, EVH x 25minutes Co-treatment with PT. Please see above note for designated roles. ADDIS VILLAFUERTE OT April 01, 2020 11:19
--- NOTE | 2020-04-01 11:22 | Progress Note - Hospitalist ---
Subjective HPI/CC On Admission Date Seen by Provider: April 01, 2020 Time Seen by Provider: 11:15 CC: Sepsis with rash and UTI HPI: This is a 54yoWF ML [facility] NHP of Dr Gifford known to me from IRF stay who just completed Levaquin for 6 weeks for osteomyelitis of T9-T10 who remains with in-swelling catheter due to neurogenic bladder who presents to the [facility] ER with rash and weakness and found to have findings c/w severe sepsis due to UTI so she was placed on IVF per protocol and empirically placed on Meropenem and Va ncomycin and transferred to ICU. She recognizes me but a poor historian due to acute illness currently. Patient has mottling in her extremities but BP remains stable but O2 saturation was 80% during transport prior to adjusting O2 supplementation. Patient denies pain. 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 To note she presented to the [facility] ER on 02/11 for back pain lumbar spine revealed no fracture except T11 compression fracture which was chronic and treated for constipation then returned the following day for continued constipation and weakness of her legs which was assessed to be right sided sciatica brought on by severe obesity and then returned back to ER unable to be cared for at home due to morbid obesity and essentially too weak to stand on her legs so she was admitted to [place] and returned 4 days later with respiratory insufficiency and CT scans revealed the destructive lesion at T9-T10 that is causing the spinal cord injury. Patient will require psych evaluation and management for chronic mental illness flared due to this catastrophic event. DC note 02/17-02/24: Hospital course: patient had a lengthy course after she was admitted for paralysis of legs and back pain and respiratory insufficiency. CT obtained revealing destructive process ( Findings are worrisome for advanced T9- T10 vertebral osteomyelitis and intervertebral discitis with posterior cortical breakthrough. Further characterization with contrast-assisted thoracic spinal MRI recommended as further evaluation. Sequelae of neoplasm less likely but cannot be absolutely excluded). Levaquin initiated but BCx were all negative. Lovenox maintained for DVt PPx. Vapotherm required with IV steroids and eventually she was weaned off Vapotherm after IV diuresis successful for volume overload. Multiple physicians were updated along with Chris Garcia, Alan, Chance, Dany along with 4 multiple attempts to [facility] for transfer which upon review of clouded images Dr Gomez BROWN stated after 1 week of abx there is no possibility of surgical options that would benefit the patient and if MRI could be obtained in the future some sort of re-consultation could be entertained but also the pandemic fo COVID-19 was also relevant in limitations of transfer and considering she could not be transferred to due to severe respiratory failure. Patient was assessed to be a candidate for IRF even if it was only for wheelchair mobility and family expressed intentions to help when she returned home and she was moved to IRF for structured rehab protocol. Patient remains with romero cath and has fecal incontinence. Subjective/Events-last exam Central line was placed by Dr. Snow last night Arterial line placed Broad-spectrum antibiotics maintain Mottling has improved but blood pressure continues to be low Arrhythmia required amiodarone order but not given since it reverted back to sinus tachycardia Consulting cardiology Very complex case and critically ill requiring ICU management Guarded prognosis May ultimately need to be intubated Patient is a full code and wants everything done to save her life Overall quality of life is very poor considering her paraplegia requiring detention placement long-term Continue supportive care Abd pain reported so consulting Dr Snow for that Review of Systems General: Fatigue Pulmonary: Dyspnea Focused Exam Lactate Level 03/31/20 16:28: Lactic Acid Level 2.40*H 03/31/20 19:25: Lactic Acid Level 2.82*H 03/31/20 21:25: Lactic Acid Level 2.00 Objective Exam Vital Signs Vital Signs Date Time Temp Pulse Resp B/P (MAP) Pulse Ox O2 Delivery O2 Flow Rate FiO2 04/01/20 14:54 37.0 04/01/20 14:00 103 12 107/43 (64) 98 Nasal Cannula 3.00 Capillary Refill : Greater Than 3 Seconds General Appearance: Anxious, Chronically ill, Moderate Distress, Obese, Other (pale, carrizales, ashen) Respiratory: No Respiratory Distress, Accessory Muscle Use, Decreased Breath Sounds Cardiovascular: Tachycardia Neurologic/Psychiatric: Alert, Oriented x3, Disoriented, Motor Weakness (legs) Results/Procedures Lab Laboratory Tests 03/31/20 21:25 04/01/20 03:23 Patient resulted labs reviewed. Assessment/Plan Assessment and Plan Assess & Plan/Chief Complaint Assessment: Sepsis severe with shock UTI likely ESBL resistant organism given in-dwelling catheter and just completed Levaquin 3 days ago placed on Meropenem and Vanc Hypoxia with mottling of extremities no improved but still guarded T9 paraplegia due to osteomyelitis of spine s/p treatment and no surgical option available Night time hypoxia Arrhythmia requiring Amiodarone order but not given consulting Dr Madsen Plan: ICU Monitor closely IV abx Await UCx IVF Pressor therapy if needed Guarded prognosis Full code Likely will need intubated if worsens Diagnosis/Problems Diagnosis/Problems (1) Sepsis (2) UTI (urinary tract infection) Status: Acute Qualifiers: Urinary tract infection type: acute cystitis Hematuria presence: with hematuria Qualified Codes: N30.01 - Acute cystitis with hematuria (3) Paraplegia at T9 level (4) H/O gastric bypass (5) Rash Status: Acute (6) Hypoglycemia Status: Acute (7) T2DM (type 2 diabetes mellitus) Status: Chronic (8) Acute respiratory failure with hypoxia Status: Acute (9) Chronic mental illness (10) Romero catheter in place (11) Paresthesia of both legs Status: Acute (12) RLS (restless legs syndrome) Status: Chronic (13) Neurogenic bladder (14) Morbid obesity Status: Chronic (15) Fecal incontinence Clinical Quality Measures DVT/VTE Risk/Contraindication: Risk Factor Score Per Nursin RFS Level Per Nursing on Admit: 4+=Very High KATELYN JENSEN DO April 01, 2020 11:22
--- NOTE | 2020-04-01 12:12 | NUR ---
teleicu contacted regarding pt's low bp and high heart rate. new orders received to bolus 500ml ns now and may repeat if map <65. bolus started from current ns bag.
--- NOTE | 2020-04-01 12:27 | Progress Note ---
Subjective Date Seen by a Provider: April 01, 2020 Time Seen by a Provider: 11:00 Subjective/Events-last exam doing well. has some periumbilical pain. has a reducible umbilical hernia. tolerating diet. Focused Exam Lactate Level 03/31/20 16:28: Lactic Acid Level 2.40*H 03/31/20 19:25: Lactic Acid Level 2.82*H 03/31/20 21:25: Lactic Acid Level 2.00 Objective Exam Vital Signs Date Time Temp Pulse Resp B/P (MAP) Pulse Ox O2 Delivery O2 Flow Rate FiO2 04/01/20 12:00 121 14 111/46 (67) 98 Nasal Cannula 3.00 04/01/20 11:00 115 14 104/50 (68) 100 Nasal Cannula 3.00 04/01/20 10:00 116 14 112/51 (71) 100 Nasal Cannula 3.00 04/01/20 09:00 111 12 115/44 (67) 98 Nasal Cannula 3.00 04/01/20 08:00 112 9 103/45 (64) 97 Nasal Cannula 3.00 04/01/20 07:34 37.7 04/01/20 07:11 99 Nasal Cannula 3.00 04/01/20 07:00 117 04/01/20 07:00 105 11 118/42 (67) 98 Nasal Cannula 3.00 04/01/20 06:00 102 12 123/47 (72) 98 Nasal Cannula 3.00 04/01/20 05:00 100 13 123/49 (73) 99 Nasal Cannula 3.00 04/01/20 04:00 92 22 108/44 (65) 100 Nasal Cannula 3.00 04/01/20 04:00 99 Nasal Cannula 3.00 04/01/20 04:00 36.1 04/01/20 03:00 91 12 94/30 (51) 100 Nasal Cannula 3.00 04/01/20 02:00 90 12 100/34 (56) 100 Nasal Cannula 3.00 04/01/20 01:00 90 04/01/20 01:00 92 16 84/44 (57) 99 Nasal Cannula 3.00 04/01/20 00:06 35.8 04/01/20 00:00 90 18 124/55 (78) 99 Nasal Cannula 3.00 04/01/20 00:00 Nasal Cannula 3.00 03/31/20 23:47 Nasal Cannula 3.00 03/31/20 23:16 80 99 03/31/20 23:00 89 20 107/48 (67) 100 Nasal Cannula 3.00 03/31/20 22:00 90 24 72/43 (53) 91 Nasal Cannula 3.00 03/31/20 21:00 88 12 53/51 (52) 100 Nasal Cannula 3.00 03/31/20 20:45 84 13 118/51 (73) 100 Nasal Cannula 3.00 03/31/20 20:15 80 12 123/96 (105) 100 Nasal Cannula 3.00 03/31/20 20:00 36.1 03/31/20 20:00 80 12 121/72 (88) 100 Nasal Cannula 3.00 03/31/20 19:30 99 Nasal Cannula 3.00 03/31/20 19:00 82 18 102/72 (82) 100 Nasal Cannula 3.00 03/31/20 19:00 79 03/31/20 17:45 36.8 76 18 98/75 (87) 100 I & O 04/01/20 07:00 Intake Total 4020 ml Output Total 1750 ml Balance 2270 ml Capillary Refill : Greater Than 3 Seconds General Appearance: No Apparent Distress HEENT: PERRL/EOMI Neck: Full Range of Motion Respiratory: Decreased Breath Sounds Cardiovascular: Regular Rate, Rhythm Gastrointestinal: normal bowel sounds, soft, other (small reducible umbilical hernia) Extremity: Normal Capillary Refill Neurologic/Psychiatric: Alert, Oriented x3 Skin: Normal Color Lymphatic: No Adenopathy Results Lab Laboratory Tests 03/31/20 13:13: Glucometer 47*L 03/31/20 13:40: Urine Color YELLOW, Urine Clarity CLEAR, Urine pH 5.0, Urine Specific [place] 1.025H, Urine Protein TRACEH, Urine Glucose (UA) NEGATIVE, Urine Ketones TRACEH, Urine Nitrite NEGATIVE, Urine Bilirubin 1+H, Urine Urobilinogen 1.0, Urine Leukocyte Esterase 2+H, Urine RBC (Auto) 1+H, Urine RBC NONE, Urine WBC TNTCH, Urine Squamous Epithelial Cells 5-10, Urine Crystals NONE, Urine Bacteria TRACE, Urine Casts PRESENT, Urine Hyaline Casts 0-2H, Urine Mucus NONE, Urine Culture Indicated YES 03/31/20 13:50: Glucometer > 600*H 03/31/20 14:28: Lactic Acid Level 2.61*H 03/31/20 15:42: Glucometer 73 03/31/20 16:11: Glucometer > 600*H 03/31/20 16:28: Lactic Acid Level 2.40*H 03/31/20 18:57: Glucometer 321H 03/31/20 19:25: Lactic Acid Level 2.82*H 03/31/20 21:25: Lactic Acid Level 2.00, Sodium Level 134L, Potassium Level 3.5L, Chloride Level 95L, Carbon Dioxide Level 24, Anion Gap 15H, Blood Urea Nitrogen 40H, Creatinine 1.22, Estimat Glomerular Filtration Rate 46, BUN/Creatinine Ratio 33, Glucose Level 86, Calcium Level 7.7L, Magnesium Level 1.6 03/31/20 22:44: Glucometer 139H 03/31/20 23:49: Total Bilirubin 0.6, Direct Bilirubin 0.4H, Indirect Bilirubin 0.2, Aspartate Amino Transf (AST/SGOT) 29, Alanine Aminotransferase (ALT/SGPT) 19, Alkaline Phosphatase 101, Troponin I < 0.028, Total Protein 5.6L, Albumin 2.7L, Beta- Hydroxybutyrate (Chem panel) 0.60H, Thyroid Stimulating Hormone (TSH) 6.12H 04/01/20 03:18: Glucometer 144H 04/01/20 03:23: White Blood Count 9.7, Red Blood Count 4.08L, Hemoglobin 12.0, Hematocrit 37, Mean Corpuscular Volume 91, Mean Corpuscular Hemoglobin 29, Mean Corpuscular Hemoglobin Concent 32, Red Cell Distribution Width 17.7H, Platelet Count 201, Mean Platelet Volume 9.0, Neutrophils (%) (Auto) 83H, Lymphocytes (%) (Auto) 10L , Monocytes (%) (Auto) 4, Eosinophils (%) (Auto) 2, Basophils (%) (Auto) 1, Neutrophils # (Auto) 8.1H, Lymphocytes # (Auto) 1.0, Monocytes # (Auto) 0.4, Eosinophils # (Auto) 0.2, Basophils # (Auto) 0.1, Sodium Level 136, Potassium Level 3.3L, Chloride Level 98, Carbon Dioxide Level 25, Anion Gap 13, Blood Urea Nitrogen 36H, Creatinine 1.03, Estimat Glomerular Filtration Rate 55, BUN/Creatinine Ratio 35, Glucose Level 114H, Calcium Level 7.2L, Corrected Calcium 8.3L, Phosphorus Level 4.5, Magnesium Level 1.5L, Total Bilirubin 0.4, Aspartate Amino Transf (AST/SGOT) 28, Alanine Aminotransferase (ALT/SGPT) 17, Alkaline Phosphatase 96, Total Protein 5.3L, Albumin 2.6L 04/01/20 06:42: Glucometer 166H 04/01/20 08:00: Glucometer 280H 04/01/20 09:48: Glucometer 182H Assessment/Plan Assessment/Plan Assess & Plan/Chief Complaint urosepsis. improving with IV abx. has mild abd pain due to umbilical hernia however easily reducible. conservative management for now. Clinical Quality Measures DVT/VTE Risk/Contraindication: Risk Factor Score Per Nursin RFS Level Per Nursing on Admit: 4+=Very High BLAIR ENNIS MD April 01, 2020 12:27
--- NOTE | 2020-04-01 12:55 | NUR ---
2nd ns bolus given from ivf bag.
[2020-04-01] MEDS ORDERED: NS IV 500 ML 500 ML IV SCH (13:00)
[2020-04-01] MEDS: ALPRAZolam 0.25 MG (XANAX) TAB PO PRN (18:11)
--- NOTE | 2020-04-01 21:10 | Consultation-Cardiology ---
HPI-Cardiology Cardiology Consultation: Date of Consultation 04/01/20 Date of Admission Attending Physician Lisa Jensen DO Admitting Physician Thad Gifford MD Consulting Physician Michelle MADSEN MD HPI: Time Seen by a Provider: 10:45 Chief Complaint: Shortness of breath. This is a 54-year-old morbidly obese lady who has history of gastric bypass surgery. She has a distractive vertebral lesion in her back and his been worked up. Paraplegic. She presented with worsening shortness of breath. She had a previous prolonged admission in [facility] for congestive heart failure and respiratory insufficiency. She also presents with generalized macular rash. She denies any chest pain, nausea, vomiting. She denies active smoking. Family history is negative. On my examination she denies chest pain again. Continues to have some shortness of breath. Review of Systems-Cardiology Review of Systems Constitutional: As described under HPI; No As described under HPI, No no symptoms reported, No chills, No fever, No lightheadedness Eyes: No As described under HPI, No no symptoms reported, No blindness, No blurred vision, No contact lenses, No drainage, No decreased acuity, No foreign body sensation, No pain, No vision change Ears/Nose/Throat: No As described under HPI, No no symptoms reported, No chronic hearing loss, No ear discharge, No ear pain, No nasal drainage, No ulcerations Respiratory: No no symptoms reported; As described under HPI; No As described under HPI, No cough, No orthopnea; shortness of breath; No SOB with excertion Cardiovascular: No no symptoms reported; As described under HPI; No As described under HPI, No chest pain, No edema, No irregular heart rate, No lightheadedness, No palpitations Gastrointestinal: No no symptoms reported, No As described under HPI, No abdomen distended, No abdominal pain, No blood streaked bowels, No constipation, No diarrhea, No nausea, No vomiting, No stool coloration changes Genitourinary: No As described under HPI, No burning, No dysuria, No discharge, No frequency, No flank pain, No hematuria, No urgency : Yes : No Skin: As described under HPI, rash; No skin related problems, No ulcerations; rash on exposed areas Psychiatric/Neurological: No anxiety, No depression, No seizure, No focal weakness, No syncope Hematologic: No bleeding abnormalities CFG-Safeid-Wiiiin Hx Patient Social History Marrital Status: single Employed/Student: retired ([employer]) Alcohol Use: Denies Use Recreational Drug Use: No Smoking Status: Former Smoker Type Used: Cigarettes 2nd Hand Smoke Exposure: No Recent Foreign Travel: Yes Recent Infectious Disease Expo: No Immunizations Up To Date Date of Pneumonia Vaccine: Sep 27, 2019 Date of Influenza Vaccine: Sep 27, 2019 Past Medical History PMH As described under Assessment. Allergies and Home Medications Allergies Coded Allergies: adhesive tape (Unverified Allergy, Unknown, 01/16/20) Home Medications Alprazolam 0.25 Mg Tablet, 0.25 MG PO Q8H PRN for ANXIETY, (Reported) CAN TAKE 1 TAB EVERY 8 HOURS DURING THE DAY- IF THE PT HAS NOT HAD MORE THEN 2 DOSES DURING THE DAY THEN PT CAN HAVE 2 TABS AT BEDTIME. MAY NOT EXCEED 4 TABS PER 24 HOURS Alprazolam 0.25 Mg Tablet, 0.5 MG PO HS PRN for ANXIETY CAN TAKE 1 TAB EVERY 8 HOURS DURING THE DAY- IF THE PT HAS NOT HAD MORE THEN 2 DOSES DURING THE DAY THEN PT CAN HAVE 2 TABS AT BEDTIME. MAY NOT EXCEED 4 TABS PER 24 HOURS Prescribed by: LISA JENSEN on 03/15/20654 Aripiprazole 5 Mg Tablet, 5 MG PO DAILY, (Reported) Atorvastatin Calcium 40 Mg Tablet, 40 MG PO DAILY, (Reported) Baclofen 10 Mg Tablet, 10 MG PO Q6HR PRN for PAIN-MODERATE (5-7) Prescribed by: LISA JENSEN on 03/15/20654 Calcium Carbonate/Vitamin D3 1 Each Tablet, 1 EACH PO DAILY, (Reported) Celecoxib 400 Mg Capsule, 400 MG PO DAILY, (Reported) Cholecalciferol (Vitamin D3) 50 Mcg Capsule, 50 MCG PO DAILY, (Reported) Docusate Sodium 100 Mg Capsule, 100 MG PO BID, (Reported) Enoxaparin Sodium 60 Mg/0.6 Ml Syringe, 60 MG SC Q12HR Prescribed by: LISA JENSEN on 03/15/20654 Ergocalciferol (Vitamin D2) 1,250 Mcg Capsule, 1,250 MCG PO SUE HORN, (Reported) Gabapentin 300 Mg Capsule, 300 MG PO TID, (Reported) Insulin Determir 1,000 Units/10 Ml Soln, 10 UNIT SQ HS Prescribed by: LISA JENSEN on 03/15/20654 Lactobacillus Acidophilus/Pect 1 Each Capsule, 2 EACH PO TIDWM Prescribed by: LISA JENSEN on 03/15/20654 Levofloxacin 750 Mg Tablet, 750 MG PO DAILY Prescribed by: LISA JENSEN on 03/15/20654 Melatonin 3 Mg Tablet, 3 MG PO HS PRN for INSOMNIA Prescribed by: LISA JENSEN on 03/15/20654 Metformin HCl 500 Mg Tablet, 250 MG PO DAILY, (Reported) TAKES OF A 500MG TAB DAILY Multivitamin 1 Each Tablet, 1 EACH PO DAILY, (Reported) Ondansetron 4 Mg Tab.rapdis, 4 MG PO Q6H PRN for NAUSEA/VOMITING-1ST LINE Prescribed by: LISA JENSEN on 03/15/20654 Oxycodone HCl 10 Mg Tab.er.12h, 10 MG PO Q12H Prescribed by: LISA JENSEN on 03/15/20654 Oxycodone HCl 5 Mg Tablet, 10 MG PO Q4H PRN for PAIN-MODERATE (5-7) Prescribed by: LISA JENSEN on 03/15/20654 Pantoprazole Sodium 40 Mg Tablet.dr, 40 MG PO DAILY Prescribed by: LISA JENSEN on 03/15/20654 Polyethylene Glycol 3350 17 Gm Powd.pack, 17 GM PO DAILY, (Reported) Potassium Chloride 20 Meq Tablet.er, 20 MEQ PO DAILY, (Reported) Ropinirole HCl 1 Mg Tablet, 1 MG PO HS Prescribed by: LISA JENSEN on 03/15/20654 Sennosides/Docusate Sodium 1 Each Tablet, 1 EA PO BID Prescribed by: LISA JENSEN on 03/15/20654 Thiamine HCl 250 Mg Tablet, 250 MG PO DAILY, (Reported) Topiramate 25 Mg Tablet, 25 MG PO DAILY, (Reported) Torsemide 100 Mg Tablet, 50 MG PO BID, (Reported) TAKES TAB OF 100MG TO EQUAL 50MG TWICE DAILY Venlafaxine HCl 75 Mg Tab, 75 MG PO QID, (Reported) Vitamin A & D 60 Gm Oint, 0 GM TOP BID Prescribed by: LISA JENSEN on 03/15/20654 Zonisamide 100 Mg Capsule, 200 MG PO BID, (Reported) TAKES 2 (100MG) CAPS TO EQUAL 200MG TWICE DAILY [Lidocaine 4% Patch] 1 EA PATCH, 1 EA TOP DAILY Prescribed by: LISA JENSEN on 03/15/20 0655 Patient Home Medication List Home Medication List Reviewed: Yes Physical Exam-Cardiology Physical Exam Vital Signs/I&O 04/02/20 04/02/20 04/02/20 04/02/20 07:00 07:00 08:00 08:00 Temp 36.3 Pulse 99 90 109 Resp 16 16 B/P (MAP) 125/51 (75) 144/57 (86) Pulse Ox 99 99 O2 Delivery Nasal Cannula Nasal Cannula O2 Flow Rate 1.00 1.00 04/02/20 04/02/20 04/02/20 04/02/20 08:00 08:12 09:00 09:26 Pulse 101 Resp 11 B/P (MAP) 113/46 (68) Pulse Ox 97 91 O2 Delivery Room Air Room Air Nasal Cannula Room Air O2 Flow Rate 1.00 04/02/20 04/02/20 04/02/20 04/02/20 10:00 11:00 12:00 12:00 Temp 36.1 Pulse 98 91 94 Resp 16 9 7 B/P (MAP) 123/47 (72) 113/50 (71) 114/53 (73) Pulse Ox 93 95 92 O2 Delivery Room Air Room Air Room Air O2 Flow Rate 04/02/20 04/02/20 04/02/20 04/02/20 12:00 12:24 13:00 14:00 Pulse 93 95 99 Resp 29 14 B/P (MAP) 117/59 (78) 135/59 (84) Pulse Ox 94 93 O2 Delivery Room Air Room Air Room Air O2 Flow Rate 04/02/20 04/02/20 04/02/20 04/02/20 15:00 15:03 16:00 16:00 Temp 35.8 Pulse 92 90 Resp 8 10 B/P (MAP) 118/53 (74) 114/53 (73) Pulse Ox 95 99 O2 Delivery Room Air Room Air Room Air 04/02/20 04/02/20 17:00 18:00 Pulse 84 94 Resp 11 13 B/P (MAP) 116/51 (72) 115/48 (70) Pulse Ox 97 97 O2 Delivery Room Air Room Air 04/02/20 00:00 Intake Total 3170 ml Output Total 550 ml Balance 2620 ml Capillary Refill : Greater Than 3 Seconds Constitutional: appears stated age, AAO x 3; No apparent distress; well- developed, well-nourished HEENT: PERRL; No discharge; hearing is well preserved, oral hygience is good; No ulceration, No xanthelasmas are seen Neck: No carotid bruit; carotid pulses are 2 + bilaterally Respiratory: chest is bilaterally symmetric; No crackles, No rhonchi, No rales; other (decreased breath sounds bilaterally.) Cardiovascular: regular rate-rhythm; No irregularly irregular, No extra beats, No parasternal heave is noted, No bradycardia, No tachycardia; S1 and S2; No diastolic murmur Gastrointestinal: distended, audible bowel sounds; No spleenomegaly Rectal: deferred Extremities: other (diffuse rash.); No clubbing, No cyanosis, No significant edema Neurologic/Psychiatric: alert, oriented x 3, power is 5/5 both on sides Skin: rash; No ulcerations; rash on exposed areas Data Review Labs Laboratory Tests 04/01/20 22:11: Glucometer 96 04/02/20 01:42: Glucometer 131H 04/02/20 01:44: White Blood Count 8.5, Red Blood Count 3.89L, Hemoglobin 11.4L, Hematocrit 36, Mean Corpuscular Volume 92, Mean Corpuscular Hemoglobin 29, Mean Corpuscular Hemoglobin Concent 32, Red Cell Distribution Width 18.3H, Platelet Count 198, Mean Platelet Volume 9.2, Neutrophils (%) (Auto) 78H, Lymphocytes (%) (Auto) 14, Monocytes (%) (Auto) 7, Eosinophils (%) (Auto) 1, Basophils (%) (Auto) 1, Neutrophils # (Auto) 6.6, Lymphocytes # (Auto) 1.2, Monocytes # (Auto) 0.6, Eosinophils # (Auto) 0.1, Basophils # (Auto) 0.1, Sodium Level 140, Potassium Level 3.4L, Chloride Level 106, Carbon Dioxide Level 22, Anion Gap 12, Blood Urea Nitrogen 24H, Creatinine 0.63, Estimat Glomerular Filtration Rate > 60, BUN/Creatinine Ratio 38, Glucose Level 133H, Calcium Level 7.1L, Phosphorus Level 2.6, Magnesium Level 2.1, Vancomycin Level Trough 30.5*H 04/02/20 05:47: Glucometer 85 04/02/20 09:41: Glucometer 133H 04/02/20 12:35: Vancomycin Level Trough 22.0H 04/02/20 14:29: Glucometer 190H 04/02/20 17:42: Glucometer 114H Microbiology 04/01/20 MRSA Screen - Final, Complete MRSA not isolated 03/31/20 Urine Culture - Final, Complete 3 or more isolates YEAST 03/31/20 Blood Culture - Preliminary, Resulted No growth ECG Impression ECG Comment First EKG had significant artifact. It was read as atrial fibrillation but I think that is incorrect. Repeat EKG showed normal rhythm. A/P-Cardiology Assessment/Admission Diagnosis Sepsis, Generalized macular rash, Paraplegia, Destructive lesions in the vertebrae, Unlikely atrial fibrillation, Respiratory failure, Electrolyte abnormality. Plan Sepsis, on broad spectrum antibiotics. Generalized macular rash, unclear etiology. Paraplegia, Destructive lesions in the vertebrae, Unlikely atrial fibrillation, EKG showed artifact. Repeat EKG showed sinus rhythm. Continue telemetry. No treatment at this point in time. Will hold amiodarone for now. Respiratory failure, repeat echocardiogram. Electrolyte abnormality. Replete electrolytes. Thank you for your consultation. Please call me if you have any questions. Lala Madsen MD, FACP, FACC, FSCAI, FHRS, CCDS Interventional Cardiology Cardiac Electrophysiology Vascular Medicine and Endovascular Interventions Clinical Quality Measures DVT/VTE Risk/Contraindication: Risk Factor Score Per Nursin RFS Level Per Nursing on Admit: 4+=Very High Michelle MADSEN MD April 01, 2020 21:09
[2020-04-02] VITALS (25 sets, daily range): BP systolic 103–152; BP diastolic 41–80
[2020-04-02] MEDS ORDERED: TROUGH ORDER-PHARMACY XX NR ×3 (01:00→20:00)
[2020-04-02] MEDS: inSUlin ASPART (NovoLOG) 1 UNIT/0.01 ML (CHARGE PER UNIT) SC SCH ×7 (01:20→22:41)
[2020-04-02] MEDS: NS IV 1000 ML 1,000 ML IV SCH ×7 (01:47→18:34)
[2020-04-02 01:57] LABS: BASOPHILS # (AUTO) 0.1 10^3/uL (0.0-0.1); BASOPHILS % (AUTO) 1 % (0-10); EOSINOPHILS # (AUTO) 0.1 10^3/uL (0.0-0.3); EOSINOPHILS % (AUTO) 1 % (0-10); HEMATOCRIT 36 % (35-52); HEMOGLOBIN 11.4 G/DL (11.5-16.0); LYMPHOCYTES # (AUTO) 1.2 X 10^3 (1.0-4.0); LYMPHOCYTES % (AUTO) 14 % (12-44); MEAN CORPUSCULAR HEMOGLOBIN 29 PG (25-34); MEAN CORPUSCULAR HGB CONC 32 G/DL (32-36); MEAN CORPUSCULAR VOLUME 92 FL (80-99); MEAN PLATELET VOLUME 9.2 FL (7.4-10.4); MONOCYTES # (AUTO) 0.6 X 10^3 (0.0-1.0); MONOCYTES % (AUTO) 7 % (0-12); NEUTROPHILS # (AUTO) 6.6 X 10^3 (1.8-7.8); NEUTROPHILS % (AUTO) 78 % (42-75); PLATELET COUNT 198 10^3/uL (130-400); RED CELL DISTRIBUTION WIDTH 18.3 % (10.0-14.5); WHITE BLOOD COUNT 8.5 10^3/uL (4.3-11.0)
[2020-04-02 02:11] LABS: CHLORIDE 106 MMOL/L (98-107); POTASSIUM 3.4 MMOL/L (3.6-5.0); SODIUM 140 MMOL/L (135-145)
[2020-04-02 02:12] LABS: CALCIUM 7.1 MG/DL (8.5-10.1)
[2020-04-02 02:13] LABS: GLUCOSE 133 MG/DL (70-105)
[2020-04-02 02:15] LABS: CARBON DIOXIDE 22 MMOL/L (21-32)
[2020-04-02 02:17] LABS: CREATININE SERUM 0.63 MG/DL (0.60-1.30); GFR ESTIMATED > 60; PHOSPHORUS 2.6 MG/DL (2.3-4.7)
[2020-04-02 02:18] LABS: BUN/CREATININE RATIO 38
[2020-04-02 02:19] LABS: MAGNESIUM 2.1 MG/DL (1.6-2.4)
[2020-04-02 02:34] LABS: VANCOMYCIN,TROUGH 30.5 UG/ML (10.0-20.0)
[2020-04-02] MEDS: VANCOMYCIN 2000 MG/NS 500 ML IVPB IV SCH ×2 (03:36)
[2020-04-02] MEDS: diphenhydrAMINE 50 MG/ML INJ (BENADRYL) IVP SCH ×4 (04:09→20:12)
[2020-04-02] MEDS: methylPREDNISolone 40 MG/ML (Solu-MEDROL) VIAL IV SCH ×4 (04:09→22:40)
[2020-04-02] MEDS: MEROPENEM 500 MG in WATER (STERILE) FOR INJECTION 10 ML IV SCH ×4 (04:09→22:40)
[2020-04-02] MEDS: POTASSIUM CL 10MEQ/50ML IVPB 50 ML IV SCH ×5 (04:10→08:36)
--- NOTE | 2020-04-02 05:53 | Pulmonary Progress Note ---
Subjective Time Seen by a Provider: 05:50 Subjective/Events-last exam Pt appears to be doing better. Sepsis Event Evaluation Height, Weight, BMI Height: '65.00" Weight: 346lbs. oz. kg; 56.42 BMI Method: Focused Exam Lactate Level 03/31/20 16:28: Lactic Acid Level 2.40*H 03/31/20 19:25: Lactic Acid Level 2.82*H 03/31/20 21:25: Lactic Acid Level 2.00 Exam Exam Vital Signs Date Time Temp Pulse Resp B/P (MAP) Pulse Ox O2 Delivery O2 Flow Rate FiO2 04/02/20 04:13 Nasal Cannula 1.00 04/02/20 04:00 35.6 04/02/20 03:00 98 16 103/41 (61) 98 Nasal Cannula 1.00 04/02/20 02:00 96 20 107/42 (63) 96 Nasal Cannula 1.00 04/02/20 01:00 93 04/02/20 01:00 92 16 138/54 (82) 98 Nasal Cannula 1.00 04/02/20 00:00 36.4 04/02/20 00:00 92 20 139/56 (83) 97 Nasal Cannula 1.00 04/02/20 00:00 Nasal Cannula 1.00 04/01/20 23:00 89 12 130/53 (78) 96 Nasal Cannula 1.00 04/01/20 22:00 90 15 137/55 (82) 97 Nasal Cannula 1.00 04/01/20 21:00 93 22 120/48 (72) 96 Nasal Cannula 1.00 04/01/20 20:00 36.8 04/01/20 20:00 96 20 127/50 (75) 95 Nasal Cannula 1.00 04/01/20 20:00 Nasal Cannula 3.00 04/01/20 19:24 96 Nasal Cannula 3.00 04/01/20 19:00 101 04/01/20 19:00 101 16 131/56 (81) 93 Nasal Cannula 1.00 04/01/20 18:00 108 24 157/74 (101) 93 Nasal Cannula 3.00 04/01/20 17:16 37.2 04/01/20 17:00 89 16 125/51 (75) 96 Nasal Cannula 3.00 04/01/20 16:16 Nasal Cannula 3.00 04/01/20 16:07 36.8 04/01/20 15:00 101 16 130/64 (86) 98 Nasal Cannula 3.00 04/01/20 14:54 37.0 04/01/20 14:46 37.8 04/01/20 14:00 103 12 107/43 (64) 98 Nasal Cannula 3.00 04/01/20 13:32 38.6 04/01/20 13:00 118 13 108/42 (64) 98 Nasal Cannula 3.00 04/01/20 12:53 118 04/01/20 12:00 121 14 111/46 (67) 98 Nasal Cannula 3.00 04/01/20 12:00 Nasal Cannula 3.00 04/01/20 11:44 37.4 04/01/20 11:00 115 14 104/50 (68) 100 Nasal Cannula 3.00 04/01/20 10:00 116 14 112/51 (71) 100 Nasal Cannula 3.00 04/01/20 09:00 111 12 115/44 (67) 98 Nasal Cannula 3.00 04/01/20 08:00 Nasal Cannula 3.00 04/01/20 08:00 112 9 103/45 (64) 97 Nasal Cannula 3.00 04/01/20 07:34 37.7 04/01/20 07:11 99 Nasal Cannula 3.00 04/01/20 07:00 117 04/01/20 07:00 105 11 118/42 (67) 98 Nasal Cannula 3.00 04/01/20 06:00 102 12 123/47 (72) 98 Nasal Cannula 3.00 I & O 04/02/20 07:00 Intake Total 4880 ml Output Total 975 ml Balance 3905 ml Height & Weight Height: '65.00" Weight: 346lbs. oz. kg; 56.42 BMI Method: General Appearance: Anxious, Chronically ill, Mild Distress, Obese HEENT: PERRL/EOMI Neck: Full Range of Motion Respiratory: No Respiratory Distress, Accessory Muscle Use, Decreased Breath Sounds Cardiovascular: Tachycardia Capillary Refill: Greater Than 3 Seconds Gastrointestinal: normal bowel sounds, soft, other (small reducible umbilical hernia) Extremity: Normal Capillary Refill Neurologic/Psychiatric: Alert, Oriented x3, Disoriented, Motor Weakness (legs) Skin: Normal Color Lymphatic: No Adenopathy Results Lab Laboratory Tests 03/31/20 12:06 03/31/20 21:25 04/01/20 03:23 04/02/20 01:44 Assessment/Plan Assessment/Plan Hypoxia -Oxygen -BiPAP PRN Sepsis with UTI - Merrem and vanco -IVF erythematous rash - -Solumedrol 40 Q 6 - Benedryl and pepcid -Monitor Dysphagia -Aspiration precautions Hypomag/hypophos -replace morbid obesity T9 paraplegia secondary to osteomyelitis SHEILA OWENS DO April 02, 2020 05:53
[2020-04-02] MEDS ORDERED: POTASSIUM CL 10MEQ/50ML IVPB 50 ML IV SCH (06:00)
[2020-04-02] MEDS ORDERED: KCL 20 MEQ TAB (K-DUR) PO SCH (06:00)
[2020-04-02] MEDS ORDERED: MAGNESIUM 1 GM/100 ML IVPB 100 ML IV SCH (06:00)
[2020-04-02] MEDS: ENOXAPARIN 60 MG/0.6 ML (LOVENOX) SYR SC SCH ×2 (07:13→18:47)
[2020-04-02] MEDS: RT-ALBUTEROL/IPRATROPIUM 3 ML (DUONEB) VIAL INH SCH ×2 (08:12→18:50)
--- NOTE | 2020-04-02 08:33 | Diagnostic Imaging Report ---
Indication: Dyspnea. Comparison: 03/31/2020. Discussion: Single portable upright view of the chest was obtained. Stable normal heart size. Atelectasis is present within the right midlung. Left-sided central venous catheter is stable. No new focal consolidation. No pleural fluid or pneumothorax. No osseous abnormality. Impression: 1. No acute cardiopulmonary process. Dictated by: Dictated on workstation # [id number]
[2020-04-02] MEDS: FAMOTIDINE 20MG/2ML IV (PEPCID) IVP SCH ×2 (08:38→20:11)
[2020-04-02] MEDS: SENNA W/DOCUSATE (SENOKOT S) TABLET PO SCH ×2 (08:42→20:12)
--- NOTE | 2020-04-02 11:25 | Progress Note - Hospitalist ---
Subjective HPI/CC On Admission Date Seen by Provider: April 02, 2020 Time Seen by Provider: 11:30 CC: Sepsis with rash and UTI HPI: This is a 54yoWF [facility] NHP of Dr Gifford known to me from IRF stay who just completed Levaquin for 6 weeks for osteomyelitis of T9-T10 who remains with in-swelling catheter due to neurogenic bladder who presents to the [facility] ER with rash and weakness and found to have findings c/w severe sepsis due to UTI so she was placed on IVF per protocol and empirically placed on Meropenem and Va ncomycin and transferred to ICU. She recognizes me but a poor historian due to acute illness currently. Patient has mottling in her extremities but BP remains stable but O2 saturation was 80% during transport prior to adjusting O2 supplementation. Patient denies pain. 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 To note she presented to the [facility] ER on 02/11 for back pain lumbar spine revealed no fracture except T11 compression fracture which was chronic and treated for constipation then returned the following day for continued constipation and weakness of her legs which was assessed to be right sided sciatica brought on by severe obesity and then returned back to ER unable to be cared for at home due to morbid obesity and essentially too weak to stand on her legs so she was admitted to [facility] and returned 4 days later with respiratory insufficiency and CT scans revealed the destructive lesion at T9-T10 that is causing the spinal cord injury. Patient will require psych evaluation and management for chronic mental illness flared due to this catastrophic event. DC note 02/17-02/24: Hospital course: patient had a lengthy course after she was admitted for paralysis of legs and back pain and respiratory insufficiency. CT obtained revealing destructive process ( Findings are worrisome for advanced T9- T10 vertebral osteomyelitis and intervertebral discitis with posterior cortical breakthrough. Further characterization with contrast-assisted thoracic spinal MRI recommended as further evaluation. Sequelae of neoplasm less likely but cannot be absolutely excluded). Levaquin initiated but BCx were all negative. Lovenox maintained for DVt PPx. Vapotherm required with IV steroids and eventually she was weaned off Vapotherm after IV diuresis successful for volume overload. Multiple physicians were updated along with Chris Garcia, Alan, Chance, Dany along with 4 multiple attempts to [facility] for transfer which upon review of clouded images Dr Gomez BROWN stated after 1 week of abx there is no possibility of surgical options that would benefit the patient and if MRI could be obtained in the future some sort of re-consultation could be entertained but also the pandemic fo COVID-19 was also relevant in limitations of transfer and considering she could not be transferred to due to severe respiratory failure. Patient was assessed to be a candidate for IRF even if it was only for wheelchair mobility and family expressed intentions to help when she returned home and she was moved to IRF for structured rehab protocol. Patient remains with romero cath and has fecal incontinence. Subjective/Events-last exam Patient doing very well better than yesterday Skin is still mottled but blood pressure is much better Changing to bariatric air mattress for her Pain in the back is still very significant Dilaudid and benzodiazepine addition have helped the patient Awaiting urine culture ID and sensitivity still on broad-spectrum antibiotics Appreciate pulmonology Appreciate cardiology Appreciate general surgery who assessed the abdominal pain and found no source that needs worked up at this current time we will continue to follow Very complex case Prognosis remains guarded Review of Systems General: Fatigue Pulmonary: Dyspnea Focused Exam Lactate Level 03/31/20 16:28: Lactic Acid Level 2.40*H 03/31/20 19:25: Lactic Acid Level 2.82*H 03/31/20 21:25: Lactic Acid Level 2.00 Objective Exam Vital Signs Vital Signs Date Time Temp Pulse Resp B/P (MAP) Pulse Ox O2 Delivery O2 Flow Rate FiO2 04/02/20 15:03 Room Air 04/02/20 15:00 92 8 118/53 (74) 95 04/02/20 13:00 04/02/20 12:00 36.1 Capillary Refill : Greater Than 3 Seconds General Appearance: No Apparent Distress, WD/WN, Chronically ill Respiratory: Chest Non Tender, Lungs Clear, Normal Breath Sounds, No Accessory Muscle Use, No Respiratory Distress Cardiovascular: Regular Rate, Rhythm, No Edema, No Gallop, No JVD, No Murmur, Normal Peripheral Pulses Neurologic/Psychiatric: Alert, Oriented x3, Normal Mood/Affect, Motor Weakness Skin: Cool, Mottled, Pallor Results/Procedures Lab Laboratory Tests 04/02/20 01:44 Patient resulted labs reviewed. Assessment/Plan Assessment and Plan Assess & Plan/Chief Complaint Assessment: Sepsis severe with shock UTI likely ESBL resistant organism given in-dwelling catheter and just completed Levaquin 3 days ago placed on Meropenem and Vanc Hypoxia with mottling of extremities now improved but still guarded T9 paraplegia due to osteomyelitis of spine s/p treatment and no surgical option available Night time hypoxia Arrhythmia requiring Amiodarone order but not given consulting Dr Madsen Plan: ICU maintained Air mattress bariatric bed Monitor closely IV abx Await UCx IVF Pressor therapy if needed Guarded prognosis Full code Likely will need intubated if worsens Diagnosis/Problems Diagnosis/Problems (1) Sepsis (2) UTI (urinary tract infection) Status: Acute Qualifiers: Urinary tract infection type: acute cystitis Hematuria presence: with hematuria Qualified Codes: N30.01 - Acute cystitis with hematuria (3) Paraplegia at T9 level (4) H/O gastric bypass (5) Rash Status: Acute (6) Hypoglycemia Status: Acute (7) T2DM (type 2 diabetes mellitus) Status: Chronic (8) Acute respiratory failure with hypoxia Status: Acute (9) Chronic mental illness (10) Romero catheter in place (11) Paresthesia of both legs Status: Acute (12) RLS (restless legs syndrome) Status: Chronic (13) Neurogenic bladder (14) Morbid obesity Status: Chronic (15) Fecal incontinence Clinical Quality Measures DVT/VTE Risk/Contraindication: Risk Factor Score Per Nursin RFS Level Per Nursing on Admit: 4+=Very High KATELYN JENSEN DO April 02, 2020 11:25
[2020-04-02] MEDS: HYDROmorphone 2 MG/ML VIAL (DILAUDID) IVP PRN ×3 (12:38→21:37)
[2020-04-02] MEDS: oxyCODONE ER 10 MG (OxyCONTIN CR) TAB PO SCH ×2 (13:21→20:11)
--- NOTE | 2020-04-02 19:00 | Cardiology Progress Note ---
Cardiology SOAP Progress Note Subjective: Mild shortness of breath. Objective: I&O/Vital Signs 04/02/20 04/02/20 04/02/20 04/02/20 08:00 08:00 08:00 08:12 Temp 36.3 Pulse 109 Resp 16 B/P (MAP) 144/57 (86) Pulse Ox 99 97 O2 Delivery Nasal Cannula Room Air Room Air O2 Flow Rate 1.00 04/02/20 04/02/20 04/02/20 04/02/20 09:00 09:26 10:00 11:00 Pulse 101 98 91 Resp 11 16 9 B/P (MAP) 113/46 (68) 123/47 (72) 113/50 (71) Pulse Ox 91 93 95 O2 Delivery Nasal Cannula Room Air Room Air Room Air O2 Flow Rate 1.00 04/02/20 04/02/20 04/02/20 04/02/20 12:00 12:00 12:00 12:24 Temp 36.1 Pulse 94 93 Resp 7 B/P (MAP) 114/53 (73) Pulse Ox 92 O2 Delivery Room Air Room Air O2 Flow Rate 04/02/20 04/02/20 04/02/20 04/02/20 13:00 14:00 15:00 15:03 Pulse 95 99 92 Resp 29 14 8 B/P (MAP) 117/59 (78) 135/59 (84) 118/53 (74) Pulse Ox 94 93 95 O2 Delivery Room Air Room Air Room Air Room Air O2 Flow Rate 04/02/20 04/02/20 04/02/20 04/02/20 16:00 16:00 17:00 18:00 Temp 35.8 Pulse 90 84 94 Resp 10 11 13 B/P (MAP) 114/53 (73) 116/51 (72) 115/48 (70) Pulse Ox 99 97 97 O2 Delivery Room Air Room Air Room Air 04/02/20 00:00 Intake Total 3170 ml Output Total 550 ml Balance 2620 ml Weight (Pounds): 346 Constitutional: appears stated age, AAO x 3; No apparent distress; well- developed, well-nourished Respiratory: chest is bilaterally symmetric; No crackles, No rhonchi, No rales; other (decreased breath sounds bilaterally.) Cardiovascular: regular rate-rhythm; No irregularly irregular, No extra beats, No parasternal heave is noted, No bradycardia, No tachycardia; S1 and S2; No diastolic murmur Gastrointestional: distended, audible bowel sounds; No spleenomegaly Extremities: other (diffuse rash.); No clubbing, No cyanosis, No significant edema Neurologic/Psychiatric: alert, oriented x 3, power is 5/5 both on sides Skin: rash; No ulcerations; rash on exposed areas Results/Procedures: Labs Laboratory Tests 04/01/20 22:11: Glucometer 96 04/02/20 01:42: Glucometer 131H 04/02/20 01:44: White Blood Count 8.5, Red Blood Count 3.89L, Hemoglobin 11.4L, Hematocrit 36, Mean Corpuscular Volume 92, Mean Corpuscular Hemoglobin 29, Mean Corpuscular Hemoglobin Concent 32, Red Cell Distribution Width 18.3H, Platelet Count 198, Mean Platelet Volume 9.2, Neutrophils (%) (Auto) 78H, Lymphocytes (%) (Auto) 14, Monocytes (%) (Auto) 7, Eosinophils (%) (Auto) 1, Basophils (%) (Auto) 1, Neutrophils # (Auto) 6.6, Lymphocytes # (Auto) 1.2, Monocytes # (Auto) 0.6, Eosinophils # (Auto) 0.1, Basophils # (Auto) 0.1, Sodium Level 140, Potassium Level 3.4L, Chloride Level 106, Carbon Dioxide Level 22, Anion Gap 12, Blood Urea Nitrogen 24H, Creatinine 0.63, Estimat Glomerular Filtration Rate > 60, BUN/Creatinine Ratio 38, Glucose Level 133H, Calcium Level 7.1L, Phosphorus Level 2.6, Magnesium Level 2.1, Vancomycin Level Trough 30.5*H 04/02/20 05:47: Glucometer 85 04/02/20 09:41: Glucometer 133H 04/02/20 12:35: Vancomycin Level Trough 22.0H 04/02/20 14:29: Glucometer 190H 04/02/20 17:42: Glucometer 114H Microbiology 04/01/20 MRSA Screen - Final, Complete MRSA not isolated 03/31/20 Urine Culture - Final, Complete 3 or more isolates YEAST 03/31/20 Blood Culture - Preliminary, Resulted No growth A/P: Assessment/Dx: Sepsis, Generalized macular rash, Paraplegia, Destructive lesions in the vertebrae, Unlikely atrial fibrillation, Respiratory failure, Electrolyte abnormality. Plan: Sepsis, on broad spectrum antibiotics. Generalized macular rash, unclear etiology. Paraplegia, Destructive lesions in the vertebrae, Unlikely atrial fibrillation, EKG showed artifact. Repeat EKG showed sinus rhythm. Continue telemetry. No treatment at this point in time. Will hold amiodarone for now. Respiratory failure, repeat echocardiogram. Electrolyte abnormality. Replete electrolytes. Thank you for your consultation. Please call me if you have any questions. Lala Madsen MD, FACP, FACC, FSCAI, FHRS, CCDS Interventional Cardiology Cardiac Electrophysiology Vascular Medicine and Endovascular Interventions Focused Exam Lactate Level 03/31/20 16:28: Lactic Acid Level 2.40*H 03/31/20 19:25: Lactic Acid Level 2.82*H 03/31/20 21:25: Lactic Acid Level 2.00 Michelle MADSEN MD April 02, 2020 19:00
[2020-04-02] MEDS: ALPRAZolam 0.25 MG (XANAX) TAB PO PRN (21:37)
[2020-04-02] MEDS ORDERED: VANCOMYCIN 1 GM/NS 250 ML IVPB IV SCH ×6 (22:00→23:15)
[2020-04-03] VITALS (12 sets, daily range): BP systolic 105–151; BP diastolic 51–97
[2020-04-03] MEDS: inSUlin ASPART (NovoLOG) 1 UNIT/0.01 ML (CHARGE PER UNIT) SC SCH ×5 (01:57→21:00)
[2020-04-03] MEDS: NS IV 1000 ML 1,000 ML IV SCH ×3 (01:57→04:11)
--- NOTE | 2020-04-03 02:02 | NUR ---
Art line removed as it was leaking and had come partially out. Pressure held and gauze placed. No concerns or complaints at this time.
[2020-04-03] MEDS: MEROPENEM 500 MG in WATER (STERILE) FOR INJECTION 10 ML IV SCH (04:11)
[2020-04-03] MEDS: methylPREDNISolone 40 MG/ML (Solu-MEDROL) VIAL IV SCH ×4 (04:11→21:03)
[2020-04-03] MEDS: diphenhydrAMINE 50 MG/ML INJ (BENADRYL) IVP SCH ×4 (04:12→22:22)
[2020-04-03 04:16] LABS: BASOPHILS # (AUTO) 0.1 10^3/uL (0.0-0.1); BASOPHILS % (AUTO) 1 % (0-10); EOSINOPHILS # (AUTO) 0.1 10^3/uL (0.0-0.3); EOSINOPHILS % (AUTO) 1 % (0-10); HEMATOCRIT 39 % (35-52); HEMOGLOBIN 12.2 G/DL (11.5-16.0); LYMPHOCYTES # (AUTO) 1.6 X 10^3 (1.0-4.0); LYMPHOCYTES % (AUTO) 16 % (12-44); MEAN CORPUSCULAR HEMOGLOBIN 29 PG (25-34); MEAN CORPUSCULAR HGB CONC 31 G/DL (32-36); MEAN CORPUSCULAR VOLUME 93 FL (80-99); MEAN PLATELET VOLUME 8.8 FL (7.4-10.4); MONOCYTES # (AUTO) 0.8 X 10^3 (0.0-1.0); MONOCYTES % (AUTO) 8 % (0-12); NEUTROPHILS # (AUTO) 7.3 X 10^3 (1.8-7.8); NEUTROPHILS % (AUTO) 74 % (42-75); PLATELET COUNT 189 10^3/uL (130-400); RED CELL DISTRIBUTION WIDTH 18.9 % (10.0-14.5); WHITE BLOOD COUNT 9.9 10^3/uL (4.3-11.0)
[2020-04-03 05:00] LABS: BUN/CREATININE RATIO 26; CALCIUM 7.8 MG/DL (8.5-10.1); CARBON DIOXIDE 24 MMOL/L (21-32); CHLORIDE 107 MMOL/L (98-107); CREATININE SERUM 0.54 MG/DL (0.60-1.30); GFR ESTIMATED > 60; GLUCOSE 149 MG/DL (70-105); MAGNESIUM 2.1 MG/DL (1.6-2.4); PHOSPHORUS 1.7 MG/DL (2.3-4.7); POTASSIUM 4.4 MMOL/L (3.6-5.0); SODIUM 141 MMOL/L (135-145)
--- NOTE | 2020-04-03 05:09 | Pulmonary Progress Note ---
Subjective Time Seen by a Provider: 05:03 Subjective/Events-last exam No complications noted. Sepsis Event Evaluation Height, Weight, BMI Height: '65.00" Weight: 346lbs. oz. kg; 56.42 BMI Method: Focused Exam Lactate Level 03/31/20 16:28: Lactic Acid Level 2.40*H 03/31/20 19:25: Lactic Acid Level 2.82*H 03/31/20 21:25: Lactic Acid Level 2.00 Exam Exam Vital Signs Date Time Temp Pulse Resp B/P (MAP) Pulse Ox O2 Delivery O2 Flow Rate FiO2 04/03/20 04:00 Room Air 04/03/20 04:00 35.8 04/03/20 02:00 91 11 137/91 (106) 97 Nasal Cannula 2.00 04/03/20 01:00 91 04/03/20 01:00 91 13 151/82 (105) 98 Nasal Cannula 2.00 04/03/20 00:00 Room Air 04/03/20 00:00 36.0 04/03/20 00:00 91 147/78 (101) 90 Nasal Cannula 2.00 04/02/20 23:00 93 16 152/80 (104) 96 Nasal Cannula 2.00 04/02/20 22:00 90 31 135/73 (93) 99 Nasal Cannula 2.00 04/02/20 21:00 92 9 147/76 (99) 88 Nasal Cannula 2.00 04/02/20 20:30 91 10 144/77 (99) 94 Nasal Cannula 2.00 04/02/20 20:00 36.6 04/02/20 20:00 Room Air 04/02/20 20:00 95 14 131/63 (85) 93 Room Air 04/02/20 19:00 101 04/02/20 19:00 101 11 136/67 (90) 96 Room Air 04/02/20 18:00 94 13 115/48 (70) 97 Room Air 04/02/20 17:00 84 11 116/51 (72) 97 Room Air 04/02/20 16:00 90 10 114/53 (73) 99 Room Air 04/02/20 16:00 35.8 04/02/20 15:03 Room Air 04/02/20 15:00 92 8 118/53 (74) 95 Room Air 04/02/20 14:00 99 14 135/59 (84) 93 Room Air 04/02/20 13:00 95 29 117/59 (78) 94 Room Air 04/02/20 12:24 93 04/02/20 12:00 Room Air 04/02/20 12:00 94 7 114/53 (73) 92 Room Air 04/02/20 12:00 36.1 04/02/20 11:00 91 9 113/50 (71) 95 Room Air 04/02/20 10:00 98 16 123/47 (72) 93 Room Air 04/02/20 09:26 Room Air 04/02/20 09:00 101 11 113/46 (68) 91 Nasal Cannula 1.00 04/02/20 08:12 97 Room Air 04/02/20 08:00 Room Air 04/02/20 08:00 36.3 04/02/20 08:00 109 16 144/57 (86) 99 Nasal Cannula 1.00 04/02/20 07:00 90 16 125/51 (75) 99 Nasal Cannula 1.00 04/02/20 07:00 99 04/02/20 06:00 89 12 122/51 (74) 100 Nasal Cannula 1.00 I & O 04/03/20 07:00 Intake Total 5350 ml Output Total 1600 ml Balance 3750 ml Height & Weight Height: '65.00" Weight: 346lbs. oz. kg; 56.42 BMI Method: General Appearance: No Apparent Distress, Anxious, Chronically ill, Obese HEENT: PERRL/EOMI Neck: Full Range of Motion Respiratory: No Respiratory Distress, Accessory Muscle Use, Decreased Breath Sounds Cardiovascular: Tachycardia Capillary Refill: Greater Than 3 Seconds Gastrointestinal: normal bowel sounds, soft, other (small reducible umbilical hernia) Extremity: Normal Capillary Refill Neurologic/Psychiatric: Alert, Oriented x3, Disoriented, Motor Weakness (legs) Skin: Normal Color Lymphatic: No Adenopathy Results Lab Laboratory Tests 04/02/20 01:44 04/03/20 04:05 Assessment/Plan Assessment/Plan Hypoxia -- improved -Oxygen -BiPAP PRN Sepsis with UTI - much improved - Merrem and vanco -I am going to D/c all Abx khadar with persistent rash. -Monitor for fever and leukocytosis -Currently no fever and no leukocytosis -IVF erythematous rash - -Solumedrol 40 Q 6 -- q12 - Benedryl and pepcid -Monitor Dysphagia -Aspiration precautions Hypomag/hypophos -replace morbid obesity T9 paraplegia secondary to osteomyelitis Transfer to 4th floor with tele SHEILA OWENS DO April 03, 2020 05:09
--- NOTE | 2020-04-03 07:27 | Diagnostic Imaging Report ---
INDICATION: Extensive rash, UTI, hypoglycemia EXAMINATION: Single view chest 04/03/2020. COMPARISON: 04/02/2020 FINDINGS: Heart is stable. Pulmonary vasculature slightly prominent but could be due to portable technique and low lung volumes. Coarsened interstitial changes in both lungs noted again likely accentuated by the low lung volumes but mild edema not excluded. There is a left-sided central line with the tip in the distal SVC IMPRESSION: 1. Possible mild pulmonary edema see above discussion. No focal infiltrates. Dictated by: Dictated on workstation # [id number]
--- NOTE | 2020-04-03 07:45 | NUR ---
Pt transferred to 4th. This RN took over pt care a this time. Pt alert and orientated, verbalizes no additional needs at this time
--- NOTE | 2020-04-03 07:54 | NUR ---
Pt transferred to room 408 at this time. Report called to DANIELLE Arreaga who will assume pt care at this time. Personal belongings with pt at time of transfer. Pt transported via bed.
[2020-04-03] MEDS: RT-ALBUTEROL/IPRATROPIUM 3 ML (DUONEB) VIAL INH SCH ×2 (08:12→18:17)
[2020-04-03] MEDS: oxyCODONE ER 10 MG (OxyCONTIN CR) TAB PO SCH ×2 (09:02→21:03)
[2020-04-03] MEDS: SENNA W/DOCUSATE (SENOKOT S) TABLET PO SCH ×2 (09:02→21:04)
[2020-04-03] MEDS: ENOXAPARIN 60 MG/0.6 ML (LOVENOX) SYR SC SCH ×2 (09:02→18:28)
[2020-04-03] MEDS: FAMOTIDINE 20MG/2ML IV (PEPCID) IVP SCH ×2 (09:04→21:03)
--- NOTE | 2020-04-03 09:30 | NUR ---
This RN attempted to place Allevyn dressing on Pt at this time. Pt stated she did not want it and would not allow this RN to place dressing on her. Pt also started to cry and stated she needed out of her chair and wanted to go to her house instead of being in the hospital. This RN informed Pt she is currently not in a chair she is laying down in her bariatric hospital bed. This RN asked Pt if she would like readjusted in her bed at this time. Pt denied at this time
--- NOTE | 2020-04-03 09:35 | NUR ---
Pt daughter called this RN stated Pt frantically called her stating she was dying and something was wrong with her heart. Pt also told daughter she was left in a random room in an uncomfortable chair. this RN informed daughter that pt was not in a chair that she was laying in her hospital bed in her hospital room daughter was also informed that the cardiac doctor had ordered an echo of her heart to check for any cardiac changes. daughter thanked this RN for explaining what was going on and informed this RN that PT frequently calls her exaggerating situations
--- NOTE | 2020-04-03 10:14 | Progress Note - Hospitalist ---
Subjective HPI/CC On Admission Date Seen by Provider: April 03, 2020 Time Seen by Provider: 10:00 CC: Sepsis with rash and UTI HPI: This is a 54yoWF ML [facility] of Dr Gifford known to me from IRF stay who just completed Levaquin for 6 weeks for osteomyelitis of T9-T10 who remains with in-swelling catheter due to neurogenic bladder who presents to the [facility] ER with rash and weakness and found to have findings c/w severe sepsis due to UTI so she was placed on IVF per protocol and empirically placed on Meropenem and Va ncomycin and transferred to ICU. She recognizes me but a poor historian due to acute illness currently. Patient has mottling in her extremities but BP remains stable but O2 saturation was 80% during transport prior to adjusting O2 supplementation. Patient denies pain. 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 To note she presented to the [facility] ER on 02/11 for back pain lumbar spine revealed no fracture except T11 compression fracture which was chronic and treated for constipation then returned the following day for continued constipation and weakness of her legs which was assessed to be right sided sciatica brought on by severe obesity and then returned back to ER unable to be cared for at home due to morbid obesity and essentially too weak to stand on her legs so she was admitted to [facility] and returned 4 days later with respiratory insufficiency and CT scans revealed the destructive lesion at T9-T10 that is causing the spinal cord injury. Patient will require psych evaluation and management for chronic mental illness flared due to this catastrophic event. DC note 02/17-02/24: Hospital course: patient had a lengthy course after she was admitted for paralysis of legs and back pain and respiratory insufficiency. CT obtained revealing destructive process ( Findings are worrisome for advanced T9- T10 vertebral osteomyelitis and intervertebral discitis with posterior cortical breakthrough. Further characterization with contrast-assisted thoracic spinal MRI recommended as further evaluation. Sequelae of neoplasm less likely but cannot be absolutely excluded). Levaquin initiated but BCx were all negative. Lovenox maintained for DVt PPx. Vapotherm required with IV steroids and eventually she was weaned off Vapotherm after IV diuresis successful for volume overload. Multiple physicians were updated along with Chris Garcia, Alan, Chance, Dany along with 4 multiple attempts to [facility] for transfer which upon review of clouded images Dr Gomez BROWN stated after 1 week of abx there is no possibility of surgical options that would benefit the patient and if MRI could be obtained in the future some sort of re-consultation could be entertained but also the pandemic fo COVID-19 was also relevant in limitations of transfer and considering she could not be transferred to due to severe respiratory failure. Patient was assessed to be a candidate for IRF even if it was only for wheelchair mobility and family expressed intentions to help when she returned home and she was moved to IRF for structured rehab protocol. Patient remains with romero cath and has fecal incontinence. Subjective/Events-last exam Pt having an emotional crisis right now Appears to be related to the septic shock with delirium Will have pharmacy review her medications and restart her mental illness treatment Social work has touched base with her Currently on a bariatric air mattress which is good Modeling of the skin is still present but improved and transferred from the ICU to [facility] Rash is improved Reviewed all medication Very complex issues Review of Systems General: Fatigue Gastrointestinal: Nausea Neurological: Weakness, Numbness, Incoordination Focused Exam Lactate Level 03/31/20 21:25: Lactic Acid Level 2.00 Objective Exam Vital Signs Vital Signs Date Time Temp Pulse Resp B/P (MAP) Pulse Ox O2 Delivery O2 Flow Rate FiO2 04/03/20 20:20 36.2 107 18 109/60 (76) 92 Room Air 04/03/20 11:03 2.00 Capillary Refill : Greater Than 3 Seconds General Appearance: WD/WN, Chronically ill, Moderate Distress, Other (tearful) Respiratory: Chest Non Tender, Lungs Clear, Normal Breath Sounds, No Accessory Muscle Use, No Respiratory Distress Cardiovascular: Regular Rate, Rhythm, No Edema, No Gallop, No JVD, No Murmur, Normal Peripheral Pulses Neurologic/Psychiatric: Alert, Oriented x3, Depressed Affect Results/Procedures Lab Laboratory Tests 04/03/20 04:05 Patient resulted labs reviewed. Assessment/Plan Assessment and Plan Assess & Plan/Chief Complaint Assessment: Sepsis severe with shock UTI likely ESBL resistant organism given in-dwelling catheter and just completed Levaquin 3 days ago placed on Meropenem and Vanc Hypoxia with mottling of extremities now improved but still guarded T9 paraplegia due to osteomyelitis of spine s/p treatment and no surgical option available Night time hypoxia Arrhythmia requiring Amiodarone order but not given consulting Dr Madsen Plan: 4th floor transfer Air mattress bariatric bed Monitor closely IV abx Await UCx IVF Guarded prognosis Full code Diagnosis/Problems Diagnosis/Problems (1) Sepsis (2) UTI (urinary tract infection) Status: Acute Qualifiers: Urinary tract infection type: acute cystitis Hematuria presence: with hematuria Qualified Codes: N30.01 - Acute cystitis with hematuria (3) Paraplegia at T9 level (4) H/O gastric bypass (5) Rash Status: Acute (6) Hypoglycemia Status: Acute (7) T2DM (type 2 diabetes mellitus) Status: Chronic (8) Acute respiratory failure with hypoxia Status: Acute (9) Chronic mental illness (10) Romero catheter in place (11) Paresthesia of both legs Status: Acute (12) RLS (restless legs syndrome) Status: Chronic (13) Neurogenic bladder (14) Morbid obesity Status: Chronic (15) Fecal incontinence Clinical Quality Measures DVT/VTE Risk/Contraindication: Risk Factor Score Per Nursin RFS Level Per Nursing on Admit: 4+=Very High KATELYN JENSEN DO April 03, 2020 10:14
[2020-04-03] MEDS ORDERED: DULO30CA3 PO (10:34)
[2020-04-03] MEDS ORDERED: BACL10TA PO (10:34)
[2020-04-03] MEDS ORDERED: METH1ADH5 TP (10:34)
[2020-04-03] MEDS ORDERED: METH35.42 TP (10:37)
[2020-04-03] MEDS ORDERED: CHOL20002 PO (10:38)
--- NOTE | 2020-04-03 10:41 | NUR ---
ENTERED THE MED REC USING THE MEDICATION REVIEW REPORT FROM [facility] IN [place]
--- NOTE | 2020-04-03 11:35 | NUR ---
RD ASSESSMENT PMHx: DM; hypercholesterolemia; paraplegia; GERD; chronic constipation PT INTERACTION: Pt was awake and pleasant during nutrition assessment. Pt states current appetite has "been better." Note avg PO intake 33% x2d, per chart review. Pt states following a regular diet at home and has no issues with chewing/swallowing food. Note pt has poor dentition, per visual assessment. Pt states no recent issues with nausea, vomiting, or constipation, but states recent issues with diarrhea. Note last BM was 5/3, and pt currently on bowel regimen of senna BID, per chart review. Pt states no recent wt changes. Note recent 10# wt loss x3w, per chart review. Pt states current DM management is okay. Note recent HbA1c of 6.4% on 02/18/20, per chart review. ABNORMAL NUTRITION-RELATED LAB VALUES LOW: cr 0.54; Ca 7.8; phos 1.7 HIGH: glu 149 Est. kcal needs: 4744-3452 kcal | 25-30 kcal/kg IBW, based on IBW of 54.5 kg (120#) Est. Pro needs: 55-65 g Pro | 1.0-1.2 g Pro/kg IBW, based on IBW of 54.5 kg (120#) PES STATEMENT: Inadequate oral intake (NI-2.1) related to loss of appetite | diarrhea as evidenced by pt interview | avg PO intake 33% x2d INTERVENTION: Continue with current diet order of Regular diet. Pt may benefit from consistent CHO diet, if blood glucose levels become elevated. Add Glucerna (vary) to meals TID, for increased kcal intake. Provides 220 kcal and 10 g Pro per serving. Offered DM education to pt. Pt declined at this time. Will attempt to offer again prior to discharge. Will continue to follow and reassess as pt needs, intake, and status change. MONITOR/EVALUATE: PO Intake; Plan of Care; Hydration Status; Weight Status; Lab Values Miladys Kaufman, MS, RD, LD
[2020-04-03] MEDS ORDERED: ONDANSETRON 4 MG (ZOFRAN) ORAL DISSOLVE TAB PO PRN (11:45)
[2020-04-03] MEDS ORDERED: polyethylene glycoL POWDER 17 GM (MIRALAX) PACK PO PRN (11:45)
[2020-04-03] MEDS ORDERED: ALPRAZolam 0.25 MG (XANAX) TAB PO PRN (11:45)
--- NOTE | 2020-04-03 11:57 | Cardiology Progress Note ---
Cardiology SOAP Progress Note Subjective: No cardiac complaints. Objective: I&O/Vital Signs 04/03/20 04/03/20 04/03/20 04/03/20 00:00 00:00 00:00 01:00 Temp 36.0 Pulse 91 91 Resp 13 B/P (MAP) 147/78 (101) 151/82 (105) Pulse Ox 90 98 O2 Delivery Nasal Cannula Room Air Nasal Cannula O2 Flow Rate 2.00 2.00 04/03/20 04/03/20 04/03/20 04/03/20 01:00 02:00 03:00 04:00 Pulse 91 91 101 95 Resp 11 14 9 B/P (MAP) 137/91 (106) 119/97 (104) 132/51 (78) Pulse Ox 97 92 91 O2 Delivery Nasal Cannula Nasal Cannula Nasal Cannula O2 Flow Rate 2.00 2.00 2.00 04/03/20 04/03/20 04/03/20 04/03/20 04:00 04:00 05:00 06:00 Temp 35.8 Pulse 90 101 Resp 10 19 B/P (MAP) 144/87 (106) 105/90 (95) Pulse Ox 95 92 O2 Delivery Room Air Nasal Cannula Nasal Cannula O2 Flow Rate 2.00 2.00 04/03/20 04/03/20 04/03/20 04/03/20 07:00 07:28 07:45 07:45 Temp 36.0 36.4 36.4 Pulse 106 102 102 Resp 16 16 B/P (MAP) 129/60 (83) 129/60 (83) Pulse Ox 96 96 O2 Delivery Nasal Cannula Nasal Cannula O2 Flow Rate 2.00 2.00 04/03/20 11:03 Temp 36.6 Pulse 98 Resp 16 B/P (MAP) 130/62 (84) Pulse Ox 94 O2 Delivery Nasal Cannula O2 Flow Rate 2.00 04/03/20 00:00 Intake Total 2170 ml Output Total 800 ml Balance 1370 ml Weight (Pounds): 346 Constitutional: appears stated age, AAO x 3; No apparent distress; well- developed, well-nourished Respiratory: chest is bilaterally symmetric; No crackles, No rhonchi, No rales; other (decreased breath sounds bilaterally.) Cardiovascular: regular rate-rhythm; No irregularly irregular, No extra beats, No parasternal heave is noted, No bradycardia, No tachycardia; S1 and S2; No diastolic murmur Gastrointestional: distended, audible bowel sounds; No spleenomegaly Extremities: other (diffuse rash.); No clubbing, No cyanosis, No significant edema Neurologic/Psychiatric: alert, oriented x 3, power is 5/5 both on sides Skin: rash; No ulcerations; rash on exposed areas Results/Procedures: Labs Laboratory Tests 04/02/20 12:35: Vancomycin Level Trough 22.0H 04/02/20 14:29: Glucometer 190H 04/02/20 17:42: Glucometer 114H 04/02/20 21:36: Glucometer 144H 04/02/20 21:38: Vancomycin Level Trough 15.6 04/03/20 01:54: Glucometer 84 04/03/20 04:05: White Blood Count 9.9, Red Blood Count 4.18L, Hemoglobin 12.2, Hematocrit 39, Mean Corpuscular Volume 93, Mean Corpuscular Hemoglobin 29, Mean Corpuscular Hemoglobin Concent 31L, Red Cell Distribution Width 18.9H, Platelet Count 189, Mean Platelet Volume 8.8, Neutrophils (%) (Auto) 74, Lymphocytes (%) (Auto) 16, Monocytes (%) (Auto) 8, Eosinophils (%) (Auto) 1, Basophils (%) (Auto) 1, Neutrophils # (Auto) 7.3, Lymphocytes # (Auto) 1.6, Monocytes # (Auto) 0.8, Eosinophils # (Auto) 0.1, Basophils # (Auto) 0.1, Sodium Level 141, Potassium Level 4.4, Chloride Level 107, Carbon Dioxide Level 24, Anion Gap 10, Blood Urea Nitrogen 14, Creatinine 0.54L, Estimat Glomerular Filtration Rate > 60, BUN/Creatinine Ratio 26, Glucose Level 149H, Calcium Level 7.8L, Phosphorus Level 1.7L, Magnesium Level 2.1 04/03/20 10:58: Glucometer 135H Microbiology 04/01/20 MRSA Screen - Final, Complete MRSA not isolated 03/31/20 Urine Culture - Final, Complete 3 or more isolates YEAST 03/31/20 Blood Culture - Preliminary, Resulted No growth A/P: Assessment/Dx: Sepsis, Generalized macular rash, Paraplegia, Destructive lesions in the vertebrae, Unlikely atrial fibrillation, Respiratory failure, Electrolyte abnormality. Plan: Sepsis, on broad spectrum antibiotics. Generalized macular rash, unclear etiology. Paraplegia, Destructive lesions in the vertebrae, Unlikely atrial fibrillation, EKG showed artifact. Repeat EKG showed sinus rhythm. Continue telemetry. No treatment at this point in time. Will hold amiodarone for now. Respiratory failure, repeat echocardiogram. Awaiting echocardiogram. Electrolyte abnormality. Replete electrolytes. Thank you for your consultation. Please call me if you have any questions. Lala Madsen MD, FACP, FACC, FSCAI, FHRS, CCDS Interventional Cardiology Cardiac Electrophysiology Vascular Medicine and Endovascular Interventions Focused Exam Lactate Level 03/31/20 16:28: Lactic Acid Level 2.40*H 03/31/20 19:25: Lactic Acid Level 2.82*H 03/31/20 21:25: Lactic Acid Level 2.00 Michelle MADSEN MD April 03, 2020 11:57
[2020-04-03] MEDS ORDERED: ALPRAZolam 0.5 MG (XANAX) TAB PO PRN (12:15)
[2020-04-03] MEDS ORDERED: METHYL SALICYLATE/MENTHOL (BENGAY, MUSCLE RUB) 3 OZ TUBE TP PRN (13:15)
--- NOTE | 2020-04-03 13:24 | Physician Query Clarification ---
PQ-Link Infection to Dev/Proc Admission/Discharge Admission Date: March 31, 2020 at 16:00 Discharge Date: The medical record reflects the following clinical scenario: History/Risk Factors: Severe sepsis with septic shock Acute cystitis with hematuria Indwelling romero catheter due to neurogenic bladder Paraplegia Clinical Findings:>100,000/ML gram positives, yeast. Treatment:IV 500mg Meropenem and IV Vancomycin HCI 2,000mg/Sodium Chloride. Question: Can you specify if the Severe sepsis/Acute cystitis with hematuria is due to/associated with indwelling romero catheter? Please document a response in Progress Note or Discharge Summary. 1. Yes - Severe sepsis and Acute cystitis with hematuria is due to/associated with indwelling romero catheter. 2. No - Severe sepsis and Acute cystitis with hematuria is not due to/associated with indwelling romero catheter. 3. Other, with explanation of the clinical findings. 4. Clinically undetermined, no explanation for the clinical findings. PHYSICIAN RESPONSE Specify if infection: 1 Please remember a lack of response to the above will prompt a phone page by CDI/Coding staff. In responding to this query, please exercise your independent professional judgment. The purpose of this communication is to more accurately reflect the complexity of your patients condition. The fact that a question is asked does not imply that any particular answer is desired or expected. Thank you for your timely response to this clarification. Requestors name: [ ] Phone # [ ] THIS PHYSICIAN QUERY FORM IS A PERMANENT PART OF THE MEDICAL RECORD ABDON LYN April 03, 2020 13:24 KATELYN JENSEN DO April 03, 2020 21:26
--- NOTE | 2020-04-03 13:41 | Occupational Ther Daily Note ---
OT Current Status-Daily Note Subjective No pain reported. Pt. verbalizes being upset at having to be in hospital. Mental Status/Objective Patient Orientation: Person, Place ADL-Treatment Therapy Code Descriptions/Definitions Functional [place] Measure: 0=Not Assessed/NA 4=Minimal Assistance 1=Total Assistance 5=Supervision or Setup 2=Maximal Assistance 6=Modified [place] 3=Moderate Assistance 7=Complete IndependenceSCALE: Activities may be completed with or without assistive devices. 4-Aytngyrjih-jmqczuj completes the activity by him/herself with no assistance from a helper. 5-Set-up or Clean-up Assistance-helper sets up or cleans up; patient completes activity. [place] assists only prior to or following the activity. 4-Supervision or Touching Assistance-helper provides verbal cues and/or touching/steadying and/or contact guard assistance as patient completes activity. Assistance may be provided throughout the activity or intermittently. 3-Partial/Moderate Assistance-helper does LESS THAN HALF the effort. [place] lifts, holds or supports trunk or limbs, but provides less than half the effort. 2-Substantial/Maximal Assistance-helper does MORE THAN HALF the effort. [place] lifts or holds trunk or limbs and provides more than half the effort. 4-Ahjtvmaco-drigcr does ALL the effort. Patient does none of the effort to c omplete the activity. Or, the assistance of 2 or more helpers is required for the patient to complete the activity. If activity was not attempted, code reason: 7-Patient Refused. 9-Not Applicable-not attempted and the patient did not perform the activity before the current illness, exacerbation or injury. 10-Not Attempted due to Environmental Limitations-(lack of equipment, weather restraints, etc.). 88-Not Attempted due to Medical Conditions or Safety Concerns. Other Treatment Pt. declines OOB activity with laura. States that sitting up, in either wheelchair or reclining chair hurts her bottom too much. Bed put into chair position. Pt. states that she feels like she will fall out. Pt. encouraged. Pt. able to brush hair. Pt. has had bed bath with nursing, and then PT session. Pt. completes 4 bilateral UE exercises x 10 reps each in all planes, to in crease endurance and strength. Pt. tolerated well. Bed continues in chair position and pt. encouraged to stay upright, as this will assist lung function. Call light placed and all needs met. Education OT Patient Education: Correct positioning, Exercise program, Modified ADL techniques, Progress toward Goal/Update tx plan, Purpose of tx/functional activities, Reviewed precautions, Rehab process Teaching Recipient: Patient Teaching Methods: Demonstration, Discussion Response to Teaching: Verbalize Understanding, Return Demonstration OT Short Term Goals Short Term Goals Time Frame: April 08, 2020 Eatin Oral hygiene: 3 OT Correction Goals Correction Goals Time Frame: April 15, 2020 Eating (QC): 4 Oral Hygiene (QC): 4 Additional Goals: 3-ImproveStrength/Regulo 1=Demonstrate adherence to instructed precautions during ADL tasks. 2=Patient will verbalize/demonstrate understanding of assistive devices/modifications for ADL. 3=Patient will improve strength/tolerance for activity to enable patient to perform ADL's. OT Education/Plan Problem List/Assessment Assessment: Decreased Activ Tolerance, Decreased UE Strength, Dependent Transfers, Impaired Bed Mobility, Impaired Funct Balance, Impaired I ADL's, Impaired Self-Care Skills Discharge Recommendations Plan/Recommendations: Continue POC Therapy Discharge Recommendati: 24 Hour Supervision Treatment Plan/Plan of Care Treatment,Training & Education: Yes Patient would benefit from OT for education, treatment and training to promote independence in ADL's, mobility, safety and/or upper extremity function for ADL's. Plan of Care: ADL Retraining, Functional Mobility, UE Funct Exercise/Act Treatment Duration: April 15, 2020 Frequency: 5 times per week Estimated Hrs Per Day: .25 hour per day Agreement: Yes Rehab Potential: Guarded Time/GCodes Start Time: 11:35 Stop Time: 11:50 Total Time Billed (hr/min): 15 Billed Treatment Time 1, Ex ADDIS VILLAFUERTE OT April 03, 2020 13:41
--- NOTE | 2020-04-03 13:51 | NUR ---
CM/SS: Visited with pt as to plan for discharge Plan: Undetermined at this. Pt will likely return to [facility] Lyle Diaz Summary: Pt is here from the intermediate. She is tearful and all over the place with her thoughts. She is frustrated with not being able to go home, she is unclear why she is here and keeps talking about sitting in her chair. Pt is in the bed and this worker tired to explain to her where she is and what is going on. Pt is tearful and needs a car repairer apprentice for her phone. This worker gets a car repairer apprentice for her phone. Pt seems to be ok with that. This worker will follow up.
--- NOTE | 2020-04-03 13:52 | Physical Therapy Daily Note ---
PT Daily Note-Current Subjective Pt. in bed, adamantly declines sitting up in w/c. States she hasn't gotten out of bed in several weeks as it severely increases her lower back pain. Pt. does agree to sit up in bed and exercises. Mental Status Patient Orientation: Person, Place, Time, Situation Transfers SCALE: Activities may be completed with or without assistive devices. 0-Zpfkjjznqz-yiwfjtd completes the activity by him/herself with no assistance from a helper. 5-Set-up or Clean-up Assistance-helper sets up or cleans up; patient completes activity. [place] assists only prior to or following the activity. 4-Supervision or Touching Assistance-helper provides verbal cues and/or touching/steadying and/or contact guard assistance as patient completes activity. Assistance may be provided throughout the activity or intermittently. 3-Partial/Moderate Assistance-helper does LESS THAN HALF the effort. [place] lifts, holds or supports trunk or limbs, but provides less than half the effort. 2-Substantial/Maximal Assistance-helper does MORE THAN HALF the effort. [place] lifts or holds trunk or limbs and provides more than half the effort. 1-Yaezjhyyw-hcihqg does ALL the effort. Patient does none of the effort to complete the activity. Or, the assistance of 2 or more helpers is required for the patient to complete the activity. If activity was not attempted, code reason: 7-Patient Refused. 9-Not Applicable-not attempted and the patient did not perform the activity before the current illness, exacerbation or injury. 10-Not Attempted due to Environmental Limitations-(lack of equipment, weather restraints, etc.). 88-Not Attempted due to Medical Conditions or Safety Concerns. Treatments Pt.'s bed adjusted to chair position to aid in lung and cardiovascular function. She tolerated position very well. While in chair position, patient completed x 10 reps of cervical rotation and sidebends, diaphragmatic breathing. Transfer of care to OT to work on UE exercises, all needs met post session, call light in reach. Assessment Current Status: Fair Progress Pt. refused laura transfer to w/c but did agree to chair position in bed. PT Correction Goals Correction Goals PT Correction Goals Time Frame: April 07, 2020 Roll Left & Right (QC): 2 Chair/Uax-co-Xhgvw Xfer(QC): 1 (establish laura transfer with nursing. ) PT Plan Treatment/Plan Treatment Plan: Continue Plan of Care Treatment Plan: Bed Mobility, Education, Functional Activity Regulo, Safety, Transfers Treatment Duration: April 07, 2020 Frequency: 5 times per week Estimated Hrs Per Day: .25 hour per day Patient and/or Family Agrees t: Yes Time/GCodes Time In: 1125 Time Out: 1135 Total Billed Treatment Time: 10 Total Billed Treatment 1, FA 10' BASILIA GONSALEZ PT April 03, 2020 13:52
[2020-04-03] MEDS: GABAPENTIN 300 MG (NEURONTIN) CAP PO SCH ×2 (13:58→21:03)
[2020-04-03] MEDS: LACTOBACILLUS ACIDOPHILUS (PROBIOTIC) CAPSULE PO SCH ×2 (13:58→17:24)
[2020-04-03] MEDS ORDERED: ZINC OXIDE 16% OINT (BUTT PASTE) 113 GM TUBE TOP PRN (15:15)
[2020-04-03] MEDS: TORSEMIDE 20 MG (DEMADEX) TAB PO SCH (17:24)
[2020-04-03] MEDS ORDERED: NON-FORMULARY MEDICATION 1 EA EA (Methyl Salicylate/Menthol (Salonpas Patch) 1 EACH) TP SCH (21:00)
[2020-04-03] MEDS ORDERED: MELATONIN 3 MG TABLET PO PRN (21:00)
[2020-04-03] MEDS: ZONISAMIDE 100 MG CAP (ZONEGRAN) NON-FORMULARY PO SCH (21:03)
[2020-04-03] MEDS: rOPINIRole 1 MG (REQUIP) TABLET PO SCH (21:03)
[2020-04-03] MEDS: DOCUSATE SODIUM 100 MG (COLACE) CAP PO SCH (21:04)
--- NOTE | 2020-04-03 22:20 | NUR ---
Pt blood sugar = 111. Notified Dr. Sheffield and was given order to hold scheduled 10 units of Levemir
[2020-04-04 00:23] VITALS: BP 132/82
[2020-04-04] MEDS: diphenhydrAMINE 50 MG/ML INJ (BENADRYL) IVP SCH ×4 (03:44→20:35)
[2020-04-04 04:00] VITALS: BP 131/82
[2020-04-04 05:15] LABS: BASOPHILS # (AUTO) 0.1 10^3/uL (0.0-0.1); BASOPHILS % (AUTO) 1 % (0-10); EOSINOPHILS # (AUTO) 0.2 10^3/uL (0.0-0.3); EOSINOPHILS % (AUTO) 2 % (0-10); HEMATOCRIT 36 % (35-52); HEMOGLOBIN 11.6 G/DL (11.5-16.0); LYMPHOCYTES # (AUTO) 2.4 X 10^3 (1.0-4.0); LYMPHOCYTES % (AUTO) 24 % (12-44); MEAN CORPUSCULAR HEMOGLOBIN 30 PG (25-34); MEAN CORPUSCULAR HGB CONC 32 G/DL (32-36); MEAN CORPUSCULAR VOLUME 93 FL (80-99); MEAN PLATELET VOLUME 9.2 FL (7.4-10.4); MONOCYTES # (AUTO) 0.8 X 10^3 (0.0-1.0); MONOCYTES % (AUTO) 8 % (0-12); NEUTROPHILS # (AUTO) 6.4 X 10^3 (1.8-7.8); NEUTROPHILS % (AUTO) 65 % (42-75); PLATELET COUNT 174 10^3/uL (130-400); RED CELL DISTRIBUTION WIDTH 18.8 % (10.0-14.5); WHITE BLOOD COUNT 9.9 10^3/uL (4.3-11.0)
[2020-04-04 05:23] LABS: CHLORIDE 105 MMOL/L (98-107); SODIUM 141 MMOL/L (135-145)
[2020-04-04 05:24] LABS: CALCIUM 7.8 MG/DL (8.5-10.1)
[2020-04-04 05:25] LABS: GLUCOSE 153 MG/DL (70-105)
[2020-04-04 05:26] LABS: CARBON DIOXIDE 27 MMOL/L (21-32)
[2020-04-04 05:29] LABS: CREATININE SERUM 0.56 MG/DL (0.60-1.30); GFR ESTIMATED > 60
[2020-04-04 05:30] LABS: BUN/CREATININE RATIO 29
[2020-04-04 05:31] LABS: MAGNESIUM 1.6 MG/DL (1.6-2.4)
[2020-04-04] MEDS: inSUlin ASPART (NovoLOG) 1 UNIT/0.01 ML (CHARGE PER UNIT) SC SCH ×4 (06:27→20:42)
[2020-04-04] MEDS: KCL 20 MEQ TAB (K-DUR) PO SCH (06:36)
[2020-04-04] MEDS: ENOXAPARIN 60 MG/0.6 ML (LOVENOX) SYR SC SCH ×2 (06:37→17:24)
[2020-04-04] MEDS: THIAMINE 100 MG (VITAMIN B-1) TAB PO SCH (06:37)
[2020-04-04] MEDS: TORSEMIDE 20 MG (DEMADEX) TAB PO SCH ×2 (06:37→16:29)
--- NOTE | 2020-04-04 07:31 | Diagnostic Imaging Report ---
INDICATION: Urinary tract infection, hypoglycemia, extensive rash. TECHNIQUE: Single view chest 4:19 AM. CORRELATION STUDY: 04/03/2020 FINDINGS: Left subclavian central line tip over the SVC. Heart size is stable. There is presence of pulmonary vascular congestion perhaps slightly increased from prior study. No definitive consolidating infiltrate. IMPRESSION: 1. Cardiac enlargement with mild vascular congestion overall appears slightly increased from prior study. Dictated by: Dictated on workstation # [id number]
[2020-04-04 07:55] VITALS: BP 125/64
[2020-04-04] MEDS: CELECOXIB 100 MG (CeleBREX) CAP PO SCH (08:39)
[2020-04-04] MEDS: LACTOBACILLUS ACIDOPHILUS (PROBIOTIC) CAPSULE PO SCH ×3 (08:39→17:24)
[2020-04-04] MEDS: VITAMIN D3 25 MCG (1,000 UNITS) TABLET PO SCH (08:40)
[2020-04-04] MEDS: toPIRamate 25 MG (TOPAMAX) TAB PO SCH (08:40)
[2020-04-04] MEDS: MULTIVIT W/MINERALS TAB (THERAGRAN M) PO SCH (08:40)
[2020-04-04] MEDS: PANTOPRAZOLE 40 MG (PROTONIX) TAB PO SCH (08:41)
[2020-04-04] MEDS: oxyCODONE ER 10 MG (OxyCONTIN CR) TAB PO SCH ×2 (08:41→20:34)
[2020-04-04] MEDS: DULoxetine 30 MG (CYMBALTA) CAP PO SCH (08:41)
[2020-04-04] MEDS: metFORMIN 500 MG (GLUCOPHAGE) TAB PO SCH (08:42)
[2020-04-04] MEDS: GABAPENTIN 300 MG (NEURONTIN) CAP PO SCH ×3 (08:42→20:34)
[2020-04-04] MEDS: FAMOTIDINE 20MG/2ML IV (PEPCID) IVP SCH (09:07)
[2020-04-04] MEDS: methylPREDNISolone 40 MG/ML (Solu-MEDROL) VIAL IV SCH ×2 (09:09→20:35)
[2020-04-04] MEDS: CALCIUM CARB + VIT D 600 MG (CALCARB + D) TAB PO SCH (09:19)
[2020-04-04] MEDS: SENNA W/DOCUSATE (SENOKOT S) TABLET PO SCH ×2 (09:20→20:36)
[2020-04-04] MEDS: DOCUSATE SODIUM 100 MG (COLACE) CAP PO SCH ×2 (09:20→20:36)
[2020-04-04] MEDS: RT-ALBUTEROL/IPRATROPIUM 3 ML (DUONEB) VIAL INH SCH (09:26)
--- NOTE | 2020-04-04 09:32 | Physical Therapy Daily Note ---
PT Daily Note-Current Subjective Patient incontinent BM requiring dependent assist of 3 to cleanse and change. Mental Status Patient Orientation: Person, Time, Situation Attachments: White Catheter Transfers SCALE: Activities may be completed with or without assistive devices. 8-Uuknsyzoww-xnphahk completes the activity by him/herself with no assistance from a helper. 5-Set-up or Clean-up Assistance-helper sets up or cleans up; patient completes activity. [place] assists only prior to or following the activity. 4-Supervision or Touching Assistance-helper provides verbal cues and/or touching/steadying and/or contact guard assistance as patient completes activity. Assistance may be provided throughout the activity or intermittently. 3-Partial/Moderate Assistance-helper does LESS THAN HALF the effort. [place] lifts, holds or supports trunk or limbs, but provides less than half the effort. 2-Substantial/Maximal Assistance-helper does MORE THAN HALF the effort. [place] lifts or holds trunk or limbs and provides more than half the effort. 5-Gcorjcoaa-pcswlh does ALL the effort. Patient does none of the effort to complete the activity. Or, the assistance of 2 or more helpers is required for the patient to complete the activity. If activity was not attempted, code reason: 7-Patient Refused. 9-Not Applicable-not attempted and the patient did not perform the activity before the current illness, exacerbation or injury. 10-Not Attempted due to Environmental Limitations-(lack of equipment, weather restraints, etc.). 88-Not Attempted due to Medical Conditions or Safety Concerns. Roll Left & Right (QC): 1 (x 3) Sit to Lying (QC): 1 (x 3 with Sugar lift) Chair/Ixk-ry-Yzuuy Xfer(QC): 1 (x 3 with Sugar lift) due to paralysis and morbid obesity, patient requires dependent assist with all mobility Assessment Patient is up in w/c with needs met. Patient requires dependent assist of 3 people for all mobility. Patient is very emotional during entire treatment. PT Shelter Goals Internet Application Developer Goals PT Shelter Goals Time Frame: April 07, 2020 Roll Left & Right (QC): 2 Chair/Pgz-sa-Juvaf Xfer(QC): 1 (establish sugar transfer with nursing. ) PT Plan Treatment/Plan Treatment Plan: Continue Plan of Care Treatment Plan: Bed Mobility, Education, Functional Activity Regulo, Safety, Transfers Treatment Duration: April 07, 2020 Frequency: 5 times per week Estimated Hrs Per Day: .25 hour per day Patient and/or Family Agrees t: Yes Time/GCodes Time In: 830 Time Out: 856 Total Billed Treatment Time: 26 Total Billed Treatment 1 visit FA x 2 26 min (cotreat with OT due to dependent requirements) NIA CULVER PT April 04, 2020 09:32
[2020-04-04] MEDS: ZONISAMIDE 100 MG CAP (ZONEGRAN) NON-FORMULARY PO SCH ×2 (09:43→20:36)
[2020-04-04] MEDS: ALPRAZolam 0.25 MG (XANAX) TAB PO PRN ×2 (09:50→18:54)
--- NOTE | 2020-04-04 10:00 | NUR ---
DR JENSEN HERE ON ROUNDS THIS AM. SHE ORDERED TO D/C TELEMETRY AND TO CHANGE MARTINI. SHE ALSO SAID THAT PT WOULD D/C AT THE EARLIEST TOMORROW, 04/05/20.
[2020-04-04 11:18] VITALS: BP 101/57
--- NOTE | 2020-04-04 11:31 | Occupational Ther Daily Note ---
OT Current Status-Daily Note Subjective Pt. tearful. Reports discomfort once up in chair. Multiple attempts to reduce discomfort. Appearance Pt. in bed. Agrees to get up via laura lift to wheelchair. Mental Status/Objective Patient Orientation: Person Attachments: White Catheter ADL-Treatment Therapy Code Descriptions/Definitions Functional [place] Measure: 0=Not Assessed/NA 4=Minimal Assistance 1=Total Assistance 5=Supervision or Setup 2=Maximal Assistance 6=Modified [place] 3=Moderate Assistance 7=Complete IndependenceSCALE: Activities may be completed with or without assistive devices. 8-Gfjanihljr-prxzrvf completes the activity by him/herself with no assistance from a helper. 5-Set-up or Clean-up Assistance-helper sets up or cleans up; patient completes activity. [place] assists only prior to or following the activity. 4-Supervision or Touching Assistance-helper provides verbal cues and/or touc alba/steadying and/or contact guard assistance as patient completes activity. Assistance may be provided throughout the activity or intermittently. 3-Partial/Moderate Assistance-helper does LESS THAN HALF the effort. [place] lifts, holds or supports trunk or limbs, but provides less than half the effort. 2-Substantial/Maximal Assistance-helper does MORE THAN HALF the effort. [place] lifts or holds trunk or limbs and provides more than half the effort. 7-Tlnszocjz-fjdgvv does ALL the effort. Patient does none of the effort to complete the activity. Or, the assistance of 2 or more helpers is required for the patient to complete the activity. If activity was not attempted, code reason: 7-Patient Refused. 9-Not Applicable-not attempted and the patient did not perform the activity before the current illness, exacerbation or injury. 10-Not Attempted due to Environmental Limitations-(lack of equipment, weather restraints, etc.). 88-Not Attempted due to Medical Conditions or Safety Concerns. On/Off Footwear: 1 Toileting Hygiene (QC): 1 Other Treatment Pt. agrees to get up into wheelchair. Pt. requires max assist x 2-3 to roll side to side. Noted pt. incontinent of bowel. Pt. dependent for jonny care and toilet hygiene. PT entered room and facilitated rolling, while OT facilitated jonny cleanse. Skilled assessment of two therapists needed due to pt's inability to do for self. After rolling multiple times for jonny care, pt. rolled for sling placement. OT/PT transferred pt. via laura to wheelchair, with skilled need of positioning throughout. Pt. reports that chair is not comfortable, and so therapy readjust using sling and lift. Pt. up in wheelchair with tray in front of her, and all needs met. Nursing aware pt. up in chair. Education OT Patient Education: Correct positioning, Modified ADL techniques, Progress toward Goal/Update tx plan, Purpose of tx/functional activities, Reviewed precautions, Rehab process, Transfer techniques Teaching Recipient: Patient Teaching Methods: Demonstration, Discussion Response to Teaching: Verbalize Understanding, Reinforcement Needed OT Short Term Goals Short Term Goals Time Frame: April 08, 2020 Eatin Oral hygiene: 3 OT [facility] Goals [facility] Goals Time Frame: April 15, 2020 Eating (QC): 4 Oral Hygiene (QC): 4 Additional Goals: 3-ImproveStrength/Regulo 1=Demonstrate adherence to instructed precautions during ADL tasks. 2=Patient will verbalize/demonstrate understanding of assistive devices/modifications for ADL. 3=Patient will improve strength/tolerance for activity to enable patient to perform ADL's. OT Education/Plan Problem List/Assessment Assessment: Decreased Activ Tolerance, Decreased UE Strength, Dependent Transfers, Impaired Bed Mobility, Impaired Funct Balance, Impaired I ADL's, Impa ired Self-Care Skills, Restricted Funct UE ROM Discharge Recommendations Plan/Recommendations: Continue POC Therapy Discharge Recommendati: 24 Hour Supervision Treatment Plan/Plan of Care Treatment,Training & Education: Yes Patient would benefit from OT for education, treatment and training to promote independence in ADL's, mobility, safety and/or upper extremity function for ADL's. Plan of Care: ADL Retraining, Functional Mobility, UE Funct Exercise/Act Treatment Duration: April 15, 2020 Frequency: 5 times per week Estimated Hrs Per Day: .25 hour per day Agreement: Yes Rehab Potential: Guarded Time/GCodes Start Time: 08:25 Stop Time: 09:00 Total Time Billed (hr/min): 35 Billed Treatment Time 8548-7016 OT only x 15minutes 1129-5812 Co-treat with PT x 20minutes. Please see above note for designated roles. 1, FA (co-treat) ADDIS VILLAFUERTE OT April 04, 2020 11:31
--- NOTE | 2020-04-04 13:14 | Cardiology Progress Note ---
Cardiology SOAP Progress Note Subjective: No cardiac complaints Objective: I&O/Vital Signs 04/04/20 04/04/20 04/04/20 04/04/20 04:00 07:00 07:55 09:00 Temp 36.8 35.5 Pulse 100 122 119 Resp 20 20 B/P (MAP) 131/82 (98) 125/64 (84) Pulse Ox 95 96 O2 Delivery Room Air Room Air Room Air 04/04/20 04/04/20 09:26 11:18 Temp 35.8 Pulse 110 Resp 18 B/P (MAP) 101/57 (72) Pulse Ox 97 95 O2 Delivery Room Air Room Air 04/04/20 00:00 Intake Total 1280 ml Output Total 2150 ml Balance -870 ml Weight (Pounds): 346 Constitutional: appears stated age, AAO x 3; No apparent distress; well- developed, well-nourished Respiratory: chest is bilaterally symmetric; No crackles, No rhonchi, No rales; other (decreased breath sounds bilaterally.) Cardiovascular: regular rate-rhythm; No irregularly irregular, No extra beats, No parasternal heave is noted, No bradycardia, No tachycardia; S1 and S2; No diastolic murmur Gastrointestional: distended, audible bowel sounds; No spleenomegaly Extremities: other (diffuse rash.); No clubbing, No cyanosis, No significant edema Neurologic/Psychiatric: alert, oriented x 3, power is 5/5 both on sides Skin: rash; No ulcerations; rash on exposed areas Results/Procedures: Labs Laboratory Tests 04/03/20 15:32: Glucometer 141H 04/03/20 20:34: Glucometer 111H 04/04/20 05:05: White Blood Count 9.9, Red Blood Count 3.89L, Hemoglobin 11.6, Hematocrit 36, Mean Corpuscular Volume 93, Mean Corpuscular Hemoglobin 30, Mean Corpuscular Hemoglobin Concent 32, Red Cell Distribution Width 18.8H, Platelet Count 174, Mean Platelet Volume 9.2, Neutrophils (%) (Auto) 65, Lymphocytes (%) (Auto) 24, Monocytes (%) (Auto) 8, Eosinophils (%) (Auto) 2, Basophils (%) (Auto) 1, Neutrophils # (Auto) 6.4, Lymphocytes # (Auto) 2.4, Monocytes # (Auto) 0.8, Eosinophils # (Auto) 0.2, Basophils # (Auto) 0.1, Sodium Level 141, Potassium Level 4.0, Chloride Level 105, Carbon Dioxide Level 27, Anion Gap 9, Blood Urea Nitrogen 16, Creatinine 0.56L, Estimat Glomerular Filtration Rate > 60, BUN/Creatinine Ratio 29, Glucose Level 153H, Calcium Level 7.8L, Phosphorus Level 2.0L, Magnesium Level 1.6 04/04/20 05:19: Glucometer 73 04/04/20 11:14: Glucometer 156H Microbiology 04/01/20 MRSA Screen - Final, Complete MRSA not isolated 03/31/20 Urine Culture - Final, Complete 3 or more isolates YEAST 03/31/20 Blood Culture - Preliminary, Resulted No growth A/P: Assessment/Dx: Sepsis, Generalized macular rash, Paraplegia, Destructive lesions in the vertebrae, Unlikely atrial fibrillation, Respiratory failure, Electrolyte abnormality. Plan: Sepsis, on broad spectrum antibiotics. Generalized macular rash, unclear etiology. Paraplegia, Destructive lesions in the vertebrae, Unlikely atrial fibrillation, EKG showed artifact. Repeat EKG showed sinus rhythm. Continue telemetry. No treatment at this point in time. Will hold amiodarone for now. Respiratory failure, repeat echocardiogram. Awaiting echocardiogram. Electrolyte abnormality. Replete electrolytes. Thank you for your consultation. Please call me if you have any questions. Lala Madsen MD, FACP, FACC, FSCAI, FHRS, CCDS Interventional Cardiology Cardiac Electrophysiology Vascular Medicine and Endovascular Interventions Michelle MADSEN MD April 04, 2020 13:14
--- NOTE | 2020-04-04 14:46 | NUR ---
CM/SS: Visited with pt as to plan for discharge. Pt is having a better day. Plan: To be determined. [facility] or another skilled facility will be sought for pt. Summary: Call to [facility] - [phone] - they are willing to take the pt back, however they want pt to be able to participate with therapies, as she has not in the past. Pt reports she is feeling better and is frustrated with being in the hospital and just wants to go home. Pt's niece ( Steffany) calls and this worker takes the phone to the room. Talk with pt as to the plan for her going forward. She report she will participate in therapies when she returns to the facility. Steffany would like for a referral to be made to another facility to see if they can take pt and it be a new start. Pt is open to that at this time. They both are ok with referrals to [facility] Referral to [facility] - they have declined, due to their current patient acuity. [facility] will review and determine if they can meet pts needs.
[2020-04-04 15:18] VITALS: BP 114/76
--- NOTE | 2020-04-04 16:20 | NUR ---
Pastoral care visit.
--- NOTE | 2020-04-04 18:24 | Progress Note - Hospitalist ---
Subjective HPI/CC On Admission Date Seen by Provider: April 04, 2020 Time Seen by Provider: 10:00 CC: Sepsis with rash and UTI HPI: This is a 54yoWF [facility] NHP of Dr Gifford known to me from IRF stay who just completed Levaquin for 6 weeks for osteomyelitis of T9-T10 who remains with in-swelling catheter due to neurogenic bladder who presents to the [facility] ER with rash and weakness and found to have findings c/w severe sepsis due to UTI so she was placed on IVF per protocol and empirically placed on Meropenem and Va ncomycin and transferred to ICU. She recognizes me but a poor historian due to acute illness currently. Patient has mottling in her extremities but BP remains stable but O2 saturation was 80% during transport prior to adjusting O2 supplementation. Patient denies pain. 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 To note she presented to the [facility] ER on 02/11 for back pain lumbar spine revealed no fracture except T11 compression fracture which was chronic and treated for constipation then returned the following day for continued constipation and weakness of her legs which was assessed to be right sided sciatica brought on by severe obesity and then returned back to ER unable to be cared for at home due to morbid obesity and essentially too weak to stand on her legs so she was admitted to MD and returned 4 days later with respiratory insufficiency and CT scans revealed the destructive lesion at T9-T10 that is causing the spinal cord injury. Patient will require psych evaluation and management for chronic mental illness flared due to this catastrophic event. DC note 02/17-02/24: Hospital course: patient had a lengthy course after she was admitted for paralysis of legs and back pain and respiratory insufficiency. CT obtained revealing destructive process ( Findings are worrisome for advanced T9- T10 vertebral osteomyelitis and intervertebral discitis with posterior cortical breakthrough. Further characterization with contrast-assisted thoracic spinal MRI recommended as further evaluation. Sequelae of neoplasm less likely but cannot be absolutely excluded). Levaquin initiated but BCx were all negative. Lovenox maintained for DVt PPx. Vapotherm required with IV steroids and eventually she was weaned off Vapotherm after IV diuresis successful for volume overload. Multiple physicians were updated along with Chris Garcia, Alan, Chance, Dany along with 4 multiple attempts to [facility] for transfer which upon review of clouded images Dr Gomez BROWN stated after 1 week of abx there is no possibility of surgical options that would benefit the patient and if MRI could be obtained in the future some sort of re-consultation could be entertained but also the pandemic fo COVID-19 was also relevant in limitations of transfer and considering she could not be transferred to due to severe respiratory failure. Patient was assessed to be a candidate for IRF even if it was only for wheelchair mobility and family expressed intentions to help when she returned home and she was moved to IRF for structured rehab protocol. Patient remains with romero cath and has fecal incontinence. Subjective/Events-last exam Pt doing much better Psych meds back on board and delirium seems to have cleared Will discontinue Telemetry Will change romero since it's been about the time that it has been changed, every four weeks Had a BM Eating and drinking Evaluating antibiotics selection for discharge tomorrow Overall feels much better Review of Systems General: Fatigue Neurological: Weakness, Confusion Objective Exam Vital Signs Vital Signs Date Time Temp Pulse Resp B/P (MAP) Pulse Ox O2 Delivery O2 Flow Rate FiO2 04/04/20 18:01 98 Room Air 04/04/20 15:18 36.6 75 24 114/76 (89) 04/03/20 11:03 2.00 Capillary Refill : Greater Than 3 Seconds General Appearance: No Apparent Distress, WD/WN, Chronically ill Respiratory: Chest Non Tender, Lungs Clear, Normal Breath Sounds, No Accessory Muscle Use, No Respiratory Distress Cardiovascular: Regular Rate, Rhythm, No Edema, No Gallop, No JVD, No Murmur, Normal Peripheral Pulses Neurologic/Psychiatric: Alert, Oriented x3, Normal Mood/Affect, Motor Weakness Results/Procedures Lab Laboratory Tests 04/04/20 05:05 Patient resulted labs reviewed. Assessment/Plan Assessment and Plan Assess & Plan/Chief Complaint Assessment: Sepsis severe with shock Presumed UTI but all Cx reviewed NGTD except multiple isolates and yeast Hypoxia with mottling of extremities now improved T9 paraplegia due to osteomyelitis of spine s/p abx FQ 6 week treatment and no surgical option available Night time hypoxia Arrhythmia requiring Amiodarone order but not given consulting Dr Madsen Plan: 4th floor transfer Air mattress bariatric bed Monitor closely IV abx DC Guarded prognosis Full code DC Tely Diagnosis/Problems Diagnosis/Problems (1) Sepsis (2) UTI (urinary tract infection) Status: Acute Qualifiers: Urinary tract infection type: acute cystitis Hematuria presence: with hematuria Qualified Codes: N30.01 - Acute cystitis with hematuria (3) Paraplegia at T9 level (4) H/O gastric bypass (5) Rash Status: Acute (6) Hypoglycemia Status: Acute (7) T2DM (type 2 diabetes mellitus) Status: Chronic (8) Acute respiratory failure with hypoxia Status: Acute (9) Chronic mental illness (10) Romero catheter in place (11) Paresthesia of both legs Status: Acute (12) RLS (restless legs syndrome) Status: Chronic (13) Neurogenic bladder (14) Morbid obesity Status: Chronic (15) Fecal incontinence Clinical Quality Measures DVT/VTE Risk/Contraindication: Risk Factor Score Per Nursin RFS Level Per Nursing on Admit: 4+=Very High KATELYN JENSEN DO April 04, 2020 18:24
[2020-04-04] MEDS: rOPINIRole 1 MG (REQUIP) TABLET PO SCH (20:34)
[2020-04-04] MEDS: FAMOTIDINE 20 MG (PEPCID) TABLET PO SCH (20:34)
--- NOTE | 2020-04-04 20:40 | NUR ---
PT BS SUGAR 98. DR JENSEN NOTIFIED AND NEW ORDER TO DC LEVEMIR 10 UNITS
[2020-04-04 23:37] VITALS: BP 122/66
[2020-04-05] MEDS: diphenhydrAMINE 50 MG/ML INJ (BENADRYL) IVP SCH ×2 (03:49→10:18)
[2020-04-05 05:13] LABS: BASOPHILS % (AUTO) 0 % (0-10); EOSINOPHILS # (AUTO) 0.2 10^3/uL (0.0-0.3); EOSINOPHILS % (AUTO) 2 % (0-10); HEMATOCRIT 37 % (35-52); HEMOGLOBIN 11.9 G/DL (11.5-16.0); LYMPHOCYTES # (AUTO) 2.8 X 10^3 (1.0-4.0); LYMPHOCYTES % (AUTO) 27 % (12-44); MEAN CORPUSCULAR HEMOGLOBIN 30 PG (25-34); MEAN CORPUSCULAR HGB CONC 33 G/DL (32-36); MEAN CORPUSCULAR VOLUME 92 FL (80-99); MEAN PLATELET VOLUME 9.5 FL (7.4-10.4); MONOCYTES # (AUTO) 0.8 X 10^3 (0.0-1.0); MONOCYTES % (AUTO) 8 % (0-12); NEUTROPHILS # (AUTO) 6.6 X 10^3 (1.8-7.8); NEUTROPHILS % (AUTO) 63 % (42-75); PLATELET COUNT 170 10^3/uL (130-400); WHITE BLOOD COUNT 10.5 10^3/uL (4.3-11.0)
--- NOTE | 2020-04-05 05:18 | NUR ---
PT ANXIOUS ABOUT HER O2 STAT AND SAYING THAT SHE NEEDS HER OXYGEN. O2 STAT 98%. AFTER SEEN SATURATION PT MORE CALM NOW. WILL CONTINUO TO MONITOR Addendum: 04/05/20 at 0520 by AMRIT VILLAFUERTE RN PT IS IN ROOM AIR
[2020-04-05 05:21] LABS: ALBUMIN 2.9 GM/DL (3.2-4.5); CHLORIDE 102 MMOL/L (98-107); POTASSIUM 4.2 MMOL/L (3.6-5.0); SODIUM 140 MMOL/L (135-145)
[2020-04-05 05:22] LABS: CALCIUM 7.9 MG/DL (8.5-10.1)
[2020-04-05 05:23] LABS: GLUCOSE 160 MG/DL (70-105); TOTAL PROTEIN 5.8 GM/DL (6.4-8.2)
[2020-04-05 05:24] LABS: CARBON DIOXIDE 27 MMOL/L (21-32)
[2020-04-05 05:25] LABS: BILIRUBIN,TOTAL 0.5 MG/DL (0.1-1.0)
[2020-04-05 05:26] LABS: PHOSPHORUS 2.8 MG/DL (2.3-4.7)
[2020-04-05 05:27] LABS: ALKALINE PHOSPHATASE 99 U/L (40-136); CREATININE SERUM 0.66 MG/DL (0.60-1.30); GFR ESTIMATED > 60
[2020-04-05 05:28] LABS: BUN/CREATININE RATIO 30
[2020-04-05 05:29] LABS: MAGNESIUM 1.5 MG/DL (1.6-2.4)
[2020-04-05 05:30] LABS: ALANINE AMINOTRANSFERASE 27 U/L (0-55)
[2020-04-05] MEDS: ALPRAZolam 0.25 MG (XANAX) TAB PO PRN (06:14)
[2020-04-05] MEDS: inSUlin ASPART (NovoLOG) 1 UNIT/0.01 ML (CHARGE PER UNIT) SC SCH ×2 (06:15→11:29)
[2020-04-05] MEDS: ENOXAPARIN 60 MG/0.6 ML (LOVENOX) SYR SC SCH (06:15)
[2020-04-05] MEDS: KCL 20 MEQ TAB (K-DUR) PO SCH (06:15)
[2020-04-05] MEDS: THIAMINE 100 MG (VITAMIN B-1) TAB PO SCH (06:15)
[2020-04-05] MEDS: TORSEMIDE 20 MG (DEMADEX) TAB PO SCH (06:15)
[2020-04-05] MEDS: RT-ALBUTEROL/IPRATROPIUM 3 ML (DUONEB) VIAL INH SCH (07:41)
[2020-04-05 08:00] VITALS: BP 104/59
[2020-04-05] MEDS: LACTOBACILLUS ACIDOPHILUS (PROBIOTIC) CAPSULE PO SCH ×2 (08:08→14:14)
[2020-04-05] MEDS: oxyCODONE ER 10 MG (OxyCONTIN CR) TAB PO SCH (08:09)
[2020-04-05] MEDS: MULTIVIT W/MINERALS TAB (THERAGRAN M) PO SCH (08:09)
[2020-04-05] MEDS: CELECOXIB 100 MG (CeleBREX) CAP PO SCH (08:09)
[2020-04-05] MEDS: FAMOTIDINE 20 MG (PEPCID) TABLET PO SCH (08:10)
[2020-04-05] MEDS: CALCIUM CARB + VIT D 600 MG (CALCARB + D) TAB PO SCH (08:10)
[2020-04-05] MEDS: DULoxetine 30 MG (CYMBALTA) CAP PO SCH (08:10)
[2020-04-05] MEDS: toPIRamate 25 MG (TOPAMAX) TAB PO SCH (08:10)
[2020-04-05] MEDS: GABAPENTIN 300 MG (NEURONTIN) CAP PO SCH ×2 (08:10→14:14)
[2020-04-05] MEDS: metFORMIN 500 MG (GLUCOPHAGE) TAB PO SCH (08:10)
[2020-04-05] MEDS: PANTOPRAZOLE 40 MG (PROTONIX) TAB PO SCH (08:10)
[2020-04-05] MEDS: VITAMIN D3 25 MCG (1,000 UNITS) TABLET PO SCH (08:10)
[2020-04-05] MEDS: ZONISAMIDE 100 MG CAP (ZONEGRAN) NON-FORMULARY PO SCH (08:11)
[2020-04-05] MEDS: SENNA W/DOCUSATE (SENOKOT S) TABLET PO SCH (08:16)
[2020-04-05] MEDS: DOCUSATE SODIUM 100 MG (COLACE) CAP PO SCH (08:16)
--- NOTE | 2020-04-05 09:05 | Diagnostic Imaging Report ---
INDICATION: Extensive rash, UTI, hypoglycemic episode. COMPARISON STUDY: Chest from yesterday. FINDINGS: Portable view of the chest demonstrates increasing perihilar infiltrates. Heart size is normal. There are no pleural effusions. IMPRESSION: There are increasing perihilar infiltrates. Dictated by: Dictated on workstation # [id number]
--- NOTE | 2020-04-05 09:27 | Cardiology Progress Note ---
Cardiology SOAP Progress Note Subjective: Improving rash. No shortness of breath or chest pain. Objective: I&O/Vital Signs 04/04/20 04/05/20 04/05/20 23:37 07:41 08:00 Temp 36.2 36.8 Pulse 105 124 Resp 22 20 B/P (MAP) 122/66 (84) 104/59 (74) Pulse Ox 95 98 94 O2 Delivery Room Air Room Air Room Air 04/05/20 00:00 Intake Total 2660 ml Output Total 2775 ml Balance -115 ml Weight (Pounds): 346 Constitutional: appears stated age, AAO x 3; No apparent distress; well- developed, well-nourished Respiratory: chest is bilaterally symmetric; No crackles, No rhonchi, No rales; other (decreased breath sounds bilaterally.) Cardiovascular: regular rate-rhythm; No irregularly irregular, No extra beats, No parasternal heave is noted, No bradycardia, No tachycardia; S1 and S2; No diastolic murmur Gastrointestional: distended, audible bowel sounds; No spleenomegaly Extremities: other (diffuse rash.); No clubbing, No cyanosis, No significant edema Neurologic/Psychiatric: alert, oriented x 3, power is 5/5 both on sides Skin: rash; No ulcerations; rash on exposed areas Results/Procedures: Labs Laboratory Tests 04/04/20 11:14: Glucometer 156H 04/04/20 15:20: Glucometer 93 04/04/20 20:38: Glucometer 98 04/05/20 05:02: White Blood Count 10.5, Red Blood Count 3.98L, Hemoglobin 11.9, Hematocrit 37, Mean Corpuscular Volume 92, Mean Corpuscular Hemoglobin 30, Mean Corpuscular Hemoglobin Concent 33, Red Cell Distribution Width 19.0H, Platelet Count 170, Mean Platelet Volume 9.5, Neutrophils (%) (Auto) 63, Lymphocytes (%) (Auto) 27, Monocytes (%) (Auto) 8, Eosinophils (%) (Auto) 2, Basophils (%) (Auto) 0, Neutrophils # (Auto) 6.6, Lymphocytes # (Auto) 2.8, Monocytes # (Auto) 0.8, Eosinophils # (Auto) 0.2, Basophils # (Auto) 0.0, Sodium Level 140, Potassium Level 4.2, Chloride Level 102, Carbon Dioxide Level 27, Anion Gap 11, Blood Urea Nitrogen 20H, Creatinine 0.66, Estimat Glomerular Filtration Rate > 60, BUN/Creatinine Ratio 30, Glucose Level 160H, Calcium Level 7.9L, Corrected Calc ium 8.8, Phosphorus Level 2.8, Magnesium Level 1.5L, Total Bilirubin 0.5, Aspartate Amino Transf (AST/SGOT) 38H, Alanine Aminotransferase (ALT/SGPT) 27, Alkaline Phosphatase 99, Total Protein 5.8L, Albumin 2.9L Microbiology 04/01/20 MRSA Screen - Final, Complete MRSA not isolated 03/31/20 Urine Culture - Final, Complete 3 or more isolates YEAST 03/31/20 Blood Culture - Preliminary, Resulted No growth A/P: Assessment/Dx: Sepsis, Generalized macular rash, Paraplegia, Destructive lesions in the vertebrae, Unlikely atrial fibrillation, Respiratory failure, Electrolyte abnormality. Plan: Sepsis, on broad spectrum antibiotics. Resolving. Generalized macular rash, unclear etiology. Significant improvement. Paraplegia, Destructive lesions in the vertebrae, Unlikely atrial fibrillation, EKG showed artifact. Repeat EKG showed sinus rhythm. Continue telemetry. No treatment at this point in time. Will hold amiodarone for now. Respiratory failure, repeat echocardiogram. Echocardiogram showed normal LV and RV function. No significant valvular heart disease. Electrolyte abnormality. Replete electrolytes. Thank you for your consultation. Please call me if you have any questions. Lala Madsen MD, FACP, FACC, FSCAI, FHRS, CCDS Interventional Cardiology Cardiac Electrophysiology Vascular Medicine and Endovascular Interventions Michelle MADSEN MD April 05, 2020 09:27
[2020-04-05] MEDS ORDERED: OXYC10TA55 PO (09:37)
[2020-04-05] MEDS ORDERED: OXYC5TAB96 PO (09:37)
[2020-04-05] MEDS ORDERED: ALPR0.254 PO (09:37)
--- NOTE | 2020-04-05 09:38 | Discharge Inst-Skilled Nursing ---
Discharge Inst-Skilled NF Reconcile Patient Problems Problems Reviewed?: Yes Chief Complaint CC: Sepsis with rash and UTI HPI: This is a 54yoWF ML [facility] NHP of Dr iGfford known to me from IRF stay who just completed Levaquin for 6 weeks for osteomyelitis of T9-T10 who remains with in-swelling catheter due to neurogenic bladder who presents to the [facility] ER with rash and weakness and found to have findings c/w severe sepsis due to UTI so she was placed on IVF per protocol and empirically placed on Meropenem and Vancomycin and transferred to ICU. She recognizes me but a poor historian due to acute illness currently. Patient has mottling in her extremities but BP remains stable but O2 saturation was 80% during transport prior to adjusting O2 supplementation. Patient denies pain. 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 To note she presented to the [facility] ER on 02/11 for back pain lumbar spine revealed no fracture except T11 compression fracture which was chronic and treated for constipation then returned the following day for continued constipation and weakness of her legs which was assessed to be right sided sciatica brought on by severe obesity and then returned back to ER unable to be cared for at home due to morbid obesity and essentially too weak to stand on her legs so she was admitted to CT and returned 4 days later with respiratory insufficiency and CT scans revealed the destructive lesion at T9-T10 that is causing the spinal cord injury. Patient will require psych evaluation and management for chronic mental illness flared due to this catastrophic event. DC note 02/17-02/24: Hospital course: patient had a lengthy course after she was admitted for paralysis of legs and back pain and respiratory insufficiency. CT obtained revealing destructive process ( Findings are worrisome for advanced T9- T10 vertebral osteomyelitis and intervertebral discitis with posterior cortical breakthrough. Further characterization with contrast-assisted thoracic spinal MRI recommended as further evaluation. Sequelae of neoplasm less likely but cannot be absolutely excluded). Levaquin initiated but BCx were all negative. Lovenox maintained for DVt PPx. Vapotherm required with IV steroids and eventually she was weaned off Vapotherm after IV diuresis successful for volume overload. Multiple physicians were updated along with Chris Garcia, Alan, Chance, Dany along with 4 multiple attempts to [facility] for transfer which upon review of clouded images Dr Gomez BROWN stated after 1 week of abx there is no possibility of surgical options that would benefit the patient and if MRI could be obtained in the future some sort of re-consultation could be entertained but also the pandemic fo COVID-19 was also relevant in limitations of transfer and considering she could not be transferred to due to severe respiratory failure. Patient was assessed to be a candidate for IRF even if it was only for wheelchair mobility and family expressed intentions to help when she returned home and she was moved to IRF for structured rehab protocol. Patient remains with romero cath and has fecal incontinence. Patient Instructions Patient Problems: septic shock T9 paraplegia Goal: [place] Consult/Follow Up/Orders Follow Up Appt.: PCP Dr Gifford in 1 week Skilled NF Admit to: Certification (SNF) I certify that SNF services are required to be given on an inpatient basis because of the above named patient's need for [facility] care on a continuing basis for the conditions(s) for which he/she was receiving inpatient hospital services prior to his/her transfer to the SNF. Halfway Facility Order: Nursing Services, Livestock Buyer-Evaluate & Treat, Physical Therapy-Evaluate & Treat, Speech Language-Evaluate & Treat, Wound Care-Eval/Treat Oxygen Delivery Method: Room Air Discharge Diet: ADA Diet Resuscitation Status: Full Code New & Resume Previous Orders New Medications: Oxycodone HCl (Oxycontin) 10 Mg Tab.er.12h 10 MG PO BID, #28 TAB Oxycodone HCl (Oxycodone IR) 5 Mg Tablet 5 MG PO Q6H PRN for PAIN-MODERATE (5-7), #30 TAB Continued Medications: Alprazolam (Xanax) 0.25 Mg Tablet 0.5 MG PO HS PRN for ANXIETY MDD 4 TABS 24 HOURS, #30 TAB CAN TAKE 1 TAB EVERY 8 HOURS DURING THE DAY- IF THE PT HAS NOT HAD MORE THEN 2 DOSES DURING THE DAY THEN PT CAN HAVE 2 TABS AT BEDTIME. MAY NOT EXCEED 4 TABS PER 24 HOURS Alprazolam (Alprazolam) 0.25 Mg Tablet 0.25 MG PO Q8H PRN for ANXIETY MDD 4 TABS IN 24 HOURS, #30 TAB (This prescription has been renewed) CAN TAKE 1 TAB EVERY 8 HOURS DURING THE DAY- IF THE PT HAS NOT HAD MORE THEN 2 DOSES DURING THE DAY THEN PT CAN HAVE 2 TABS AT BEDTIME. MAY NOT EXCEED 4 TABS PER 24 HOURS Aripiprazole (Aripiprazole) 5 Mg Tablet 5 MG PO DAILY, TAB Atorvastatin Calcium (Atorvastatin Calcium) 40 Mg Tablet 40 MG PO DAILY, TAB Calcium Carbonate/Vitamin D3 (Calcium 600 + Vit D 200 Tablet) 1 Each Tablet 1 EACH PO DAILY, TAB Celecoxib (Celebrex) 400 Mg Capsule 400 MG PO DAILY, CAP Cholecalciferol (Vitamin D3) (Vitamin D3) 50 Mcg Capsule 50 MCG PO DAILY, CAP Docusate Sodium (Colace) 100 Mg Capsule 100 MG PO BID, CAP Duloxetine HCl (Cymbalta) 30 Mg Capsule.dr 30 MG PO DAILY, CAP Enoxaparin Sodium (Enoxaparin Sodium) 60 Mg/0.6 Ml Syringe 60 MG SC Q12HR for 30 Days, SYRINGE Ergocalciferol (Vitamin D2) (Vitamin D2) 1,250 Mcg Capsule 1250 MCG PO FRI,, CAP Gabapentin (Gabapentin) 300 Mg Capsule 300 MG PO TID, CAP Insulin Determir (Levemir) 1,000 Units/10 Ml Soln 10 UNIT SQ HS for 30 Days, EA Lactobacillus Acidophilus/Pect (Acidophilus-Pectin Capsule) 1 Each Capsule 2 EACH PO TIDWM for 30 Days, CAP Melatonin (Melatonin) 3 Mg Tablet 3 MG PO HS PRN for INSOMNIA for 30 Days, TAB Metformin HCl (Metformin HCl) 500 Mg Tablet 250 MG PO DAILY, TAB TAKES OF A 500MG TAB DAILY Methyl Salicylate/Menthol (Salonpas Patch) 1 Each Adh..patch 1 EACH TP HS, PATCH APPLY TO BACK Methyl Salicylate/Menthol (Icy Hot Cream) 35.4 Gm Cream..g. 1 APPLIC TP QID PRN for BACK PAIN, TUBE APPLY TO BACK Multivitamin (Multivitamins) 1 Each Tablet 1 EACH PO DAILY, TAB Ondansetron (Ondansetron Odt) 4 Mg Tab.rapdis 4 MG PO Q6H PRN for NAUSEA/VOMITING-1ST LINE for 30 Days, TAB Pantoprazole Sodium (Pantoprazole Sodium) 40 Mg Tablet.dr 40 MG PO DAILY for 30 Days, TAB Polyethylene Glycol 3350 (Miralax) 17 Gm Powd.pack 17 GM PO DAILY PRN for CONSTIPATION-2ND LINE, EACH Potassium Chloride (Potassium Chloride) 20 Meq Tablet.er 20 MEQ PO DAILY, TAB Ropinirole HCl (Ropinirole HCl) 1 Mg Tablet 1 MG PO HS for 30 Days, TAB Sennosides/Docusate Sodium (Senna-Time S Tablet) 1 Each Tablet 1 EA PO BID for 30 Days, TAB Thiamine HCl (Vitamin B-1) 250 Mg Tablet 250 MG PO DAILY, TAB Topiramate (Topiramate) 25 Mg Tablet 25 MG PO DAILY, TAB Torsemide (Torsemide) 100 Mg Tablet 50 MG PO BID, TAB TAKES TAB OF 100MG TO EQUAL 50MG TWICE DAILY Zonisamide (Zonisamide) 100 Mg Capsule 200 MG PO BID, CAP TAKES 2 (100MG) CAPS TO EQUAL 200MG TWICE DAILY Discontinued Medications: Baclofen (Baclofen) 10 Mg Tablet 10 MG PO Q6H, TAB Oxycodone HCl (Oxycodone IR) 5 Mg Tablet 10 MG PO Q4H PRN for PAIN-MODERATE (5-7), #60 TAB Lisa Jensen April 05, 2020 09:37 LISA JENSEN DO April 05, 2020 09:38
--- NOTE | 2020-04-05 09:40 | Discharge Summary ---
Discharge Summary Hospital Course Was the Problem List Reviewed?: Yes Problems/Dx: (1) Sepsis (2) UTI (urinary tract infection) Status: Acute Qualifiers: Qualified Codes: N30.01 - Acute cystitis with hematuria (3) Paraplegia at T9 level (4) H/O gastric bypass (5) Rash Status: Acute (6) Hypoglycemia Status: Acute (7) T2DM (type 2 diabetes mellitus) Status: Chronic (8) Acute respiratory failure with hypoxia Status: Acute (9) Chronic mental illness (10) White catheter in place (11) Paresthesia of both legs Status: Acute (12) RLS (restless legs syndrome) Status: Chronic (13) Neurogenic bladder (14) Morbid obesity Status: Chronic (15) Fecal incontinence Hospital Course Date of Admission: March 31, 2020 at 16:00 Admission Diagnosis : Family Physician/Provider: Thad Gifford MD Date of Discharge: 04/05/20 Discharge Diagnosis: septic shock, indwelling catheter, T9 paraplegia due to ostemyelitis s/p 6 weeks of Levaquin, neurogenic bladder, DM, Night time hypoxia Hospital Course: Hospital Course: Pt had a lengthy and intense hospital course for five days when she was admitted to the ICU for septic shock. Blood cultures and urine cultures all returned no specific organism but yeast was in the urine culture but she does have an indwelling catheter so that is colonized. Pt was maintained on Meropenem and Vanc that was discontinued. Pt was transferred to the floor after aggressive IV fluid resuscitation and near intubated status. Overall kidney function remained stable. Pt was able to restart all of her home medications including psychiatric medications since she had some delirium and psychosis from her flare of bipolar disorder and situational depression issues. Overall she did very well, hypoglycemia required holding of insulin and she was discharged on Oxycontin 10mg twice daily along with Oxycodone 5 Q4hrs prn, along with her Xanax for anxiety. Dr. Gifford was updated on DC plan and he will have an appointment arranged for Dr. Dyer up at [facility] who reviewed her original CT imaging scan results during the Coronavirus Epidemic and he recommended no surgical intervention but there was a possibility of an option so she wanted that appointment arranged and he will do that. 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 Labs and Pending Lab Test: Laboratory Tests 04/04/20 11:14: Glucometer 156H 04/04/20 15:20: Glucometer 93 04/04/20 20:38: Glucometer 98 04/05/20 05:02: White Blood Count 10.5, Red Blood Count 3.98L, Hemoglobin 11.9, Hematocrit 37, Mean Corpuscular Volume 92, Mean Corpuscular Hemoglobin 30, Mean Corpuscular Hemoglobin Concent 33, Red Cell Distribution Width 19.0H, Platelet Count 170, Mean Platelet Volume 9.5, Neutrophils (%) (Auto) 63, Lymphocytes (%) (Auto) 27, Monocytes (%) (Auto) 8, Eosinophils (%) (Auto) 2, Basophils (%) (Auto) 0, Neutrophils # (Auto) 6.6, Lymphocytes # (Auto) 2.8, Monocytes # (Auto) 0.8, Eosinophils # (Auto) 0.2, Basophils # (Auto) 0.0, Sodium Level 140, Potassium Level 4.2, Chloride Level 102, Carbon Dioxide Level 27, Anion Gap 11, Blood Urea Nitrogen 20H, Creatinine 0.66, Estimat Glomerular Filtration Rate > 60, BUN/Creatinine Ratio 30, Glucose Level 160H, Calcium Level 7.9L, Corrected Calcium 8.8, Phosphorus Level 2.8, Magnesium Level 1.5L, Total Bilirubin 0.5, Aspartate Amino Transf (AST/SGOT) 38H, Alanine Aminotransferase (ALT/SGPT) 27, Alkaline Phosphatase 99, Total Protein 5.8L, Albumin 2.9L Microbiology 04/01/20 MRSA Screen - Final, Complete MRSA not isolated 03/31/20 Urine Culture - Final, Complete 3 or more isolates YEAST 03/31/20 Blood Culture - Preliminary, Resulted No growth Home Meds Active Oxycodone IR (Oxycodone HCl) 5 Mg Tablet 5 Mg PO Q6H PRN Oxycontin (Oxycodone HCl) 10 Mg Tab.er.12h 10 Mg PO BID Alprazolam 0.25 Mg Tablet 0.25 Mg PO Q8H PRN MDD 4 TABS IN 24 HOURS CAN TAKE 1 TAB EVERY 8 HOURS DURING THE DAY- IF THE PT HAS NOT HAD MORE THEN 2 DOSES DURING THE DAY THEN PT CAN HAVE 2 TABS AT BEDTIME. MAY NOT EXCEED 4 TABS PER 24 HOURS Oxycodone IR (Oxycodone HCl) 5 Mg Tablet 10 Mg PO Q4H PRN Melatonin 3 Mg Tablet 3 Mg PO HS PRN 30 Days Levemir (Insulin Determir) 1,000 Units/10 Ml Soln 10 Unit SQ HS 30 Days Acidophilus-Pectin Capsule (Lactobacillus Acidophilus/Pect) 1 Each Capsule 2 Each PO TIDWM 30 Days Pantoprazole Sodium 40 Mg Tablet.dr 40 Mg PO DAILY 30 Days Ondansetron Odt (Ondansetron) 4 Mg Tab.rapdis 4 Mg PO Q6H PRN 30 Days Senna-Time S Tablet (Sennosides/Docusate Sodium) 1 Each Tablet 1 Ea PO BID 30 Days Enoxaparin Sodium 60 Mg/0.6 Ml Syringe 60 Mg SC Q12HR 30 Days Xanax (Alprazolam) 0.25 Mg Tablet 0.5 Mg PO HS PRN MDD 4 TABS 24 HOURS CAN TAKE 1 TAB EVERY 8 HOURS DURING THE DAY- IF THE PT HAS NOT HAD MORE THEN 2 DOSES DURING THE DAY THEN PT CAN HAVE 2 TABS AT BEDTIME. MAY NOT EXCEED 4 TABS PER 24 HOURS Ropinirole HCl 1 Mg Tablet 1 Mg PO HS 30 Days Reported Vitamin D3 (Cholecalciferol (Vitamin D3)) 50 Mcg Capsule 50 Mcg PO DAILY Icy Hot Cream (Methyl Salicylate/Menthol) 35.4 Gm Cream..g. 1 Applic TP QID PRN APPLY TO BACK Salonpas Patch (Methyl Salicylate/Menthol) 1 Each Adh..patch 1 Each TP HS APPLY TO BACK Cymbalta (Duloxetine HCl) 30 Mg Capsule.dr 30 Mg PO DAILY Baclofen 10 Mg Tablet 10 Mg PO Q6H Torsemide 100 Mg Tablet 50 Mg PO BID TAKES TAB OF 100MG TO EQUAL 50MG TWICE DAILY Topiramate 25 Mg Tablet 25 Mg PO DAILY Potassium Chloride 20 Meq Tablet.er 20 Meq PO DAILY Multivitamins (Multivitamin) 1 Each Tablet 1 Each PO DAILY Miralax (Polyethylene Glycol 3350) 17 Gm Powd.pack 17 Gm PO DAILY PRN Colace (Docusate Sodium) 100 Mg Capsule 100 Mg PO BID Celebrex (Celecoxib) 400 Mg Capsule 400 Mg PO DAILY Calcium 600 + Vit D 200 Tablet (Calcium Carbonate/Vitamin D3) 1 Each Tablet 1 Each PO DAILY Vitamin B-1 (Thiamine HCl) 250 Mg Tablet 250 Mg PO DAILY Atorvastatin Calcium 40 Mg Tablet 40 Mg PO DAILY Zonisamide 100 Mg Capsule 200 Mg PO BID TAKES 2 (100MG) CAPS TO EQUAL 200MG TWICE DAILY Aripiprazole 5 Mg Tablet 5 Mg PO DAILY Vitamin D2 (Ergocalciferol (Vitamin D2)) 1,250 Mcg Capsule 1,250 Mcg PO SUE HORN Gabapentin 300 Mg Capsule 300 Mg PO TID Metformin HCl 500 Mg Tablet 250 Mg PO DAILY TAKES OF A 500MG TAB DAILY Assessment/Pt Instructions CH[facility] DR Gifford in 1 week on NH rounds and to arrange Dr Gomez ward NSG at [facility] who evaluated CT scans on initial admit Discharge Planning: <30 minutes discharge planning Discharge Instructions Discharge Diet: ADA Diet Discharge Physical Examination Vital Signs Vital Signs Date Time Temp Pulse Resp B/P (MAP) Pulse Ox O2 Delivery O2 Flow Rate FiO2 04/05/20 08:00 36.8 124 20 104/59 (74) 94 Room Air 04/03/20 11:03 2.00 General Appearance: No Apparent Distress, WD/WN, Chronically ill, Obese Respiratory: Chest Non Tender, Lungs Clear, Normal Breath Sounds, No Accessory Muscle Use, No Respiratory Distress Cardiovascular: Regular Rate, Rhythm, No Edema, No Gallop, No JVD, No Murmur, Normal Peripheral Pulses Neurologic/Psychiatric: Alert, Oriented x3, Normal Mood/Affect, Motor Weakness Allergies: Coded Allergies: adhesive tape (Unverified Allergy, Unknown, 01/16/20) Discharge Summary Date of Admission March 31, 2020 at 16:00 Date of Discharge Discharge Date: April 05, 2020 Admission Diagnosis Assessment: Sepsis UTI likely ESBL resistant organism given in-dwelling catheter and just completed Levaquin 2 days ago placed on Meropenem and Vanc Hypoxia with mottling of extremities T9 paraplegia due to osteomyelitis of spine Plan: ICU Monitor closely IV abx Await UCx IVF Pressor therapy if needed IRF assessments: Assessment: (1) Paraplegia at T9 level ICD Codes: G82.20 - Paraplegia, unspecified (2) Acute osteomyelitis of spine Status: Acute ICD Codes: M46.20 - Osteomyelitis of vertebra, site unspecified (3) White catheter in place ICD Codes: Z96.0 - Presence of urogenital implants (4) Neurogenic bladder ICD Codes: N31.9 - Neuromuscular dysfunction of bladder, unspecified (5) Chronic mental illness ICD Codes: F99 - Mental disorder, not otherwise specified (6) Depression ICD Codes: F32.9 - Major depressive disorder, single episode, unspecified (7) H/O gastric bypass ICD Codes: Z98.84 - Bariatric surgery status (8) Fecal incontinence ICD Codes: R15.9 - Full incontinence of feces (9) Acute respiratory failure with hypoxia Status: Acute ICD Codes: J96.01 - Acute respiratory failure with hypoxia (10) T2DM (type 2 diabetes mellitus) Status: Chronic ICD Codes: E11.9 - Type 2 diabetes mellitus without complications (11) Paresthesia of both legs Status: Acute ICD Codes: R20.2 - Paresthesia of skin (12) RLS (restless legs syndrome) Status: Chronic ICD Codes: G25.81 - Restless legs syndrome (13) Elevated liver function tests Status: Acute ICD Codes: R94.5 - Abnormal results of liver function studies (14) HLD (hyperlipidemia) Status: Chronic ICD Codes: E78.5 - Hyperlipidemia, unspecified (15) HTN (hypertension) Status: Chronic ICD Codes: I10 - Essential (primary) hypertension (16) Morbid obesity Status: Chronic ICD Codes: E66.01 - Morbid (severe) obesity due to excess calories (17) Shortness of breath Status: Acute ICD Codes: R06.02 - Shortness of breath (18) Hypoxia Status: Acute ICD Codes: R09.02 - Hypoxemia GERD (1) Paraplegia at T9 level (2) Acute osteomyelitis of spine Status: Acute (3) White catheter in place (4) Neurogenic bladder (5) Chronic mental illness (6) Depression (7) H/O gastric bypass (8) Fecal incontinence (9) Acute respiratory failure with hypoxia Status: Acute (10) T2DM (type 2 diabetes mellitus) Status: Chronic (11) Paresthesia of both legs Status: Acute (12) RLS (restless legs syndrome) Status: Chronic (13) Elevated liver function tests Status: Acute (14) HLD (hyperlipidemia) Status: Chronic (15) HTN (hypertension) Status: Chronic (16) Morbid obesity Status: Chronic (17) Shortness of breath Status: Acute (18) Hypoxia Status: Acute Discharge Diagnosis Assessment: Sepsis severe with shock Presumed UTI but all Cx reviewed NGTD except multiple isolates and yeast Hypoxia with mottling of extremities now improved T9 paraplegia due to osteomyelitis of spine s/p abx FQ 6 week treatment and no surgical option available Night time hypoxia Arrhythmia requiring Amiodarone order but not given consulting Dr Madsen Plan: 4th floor transfer Air mattress bariatric bed Monitor closely IV abx DC Guarded prognosis Full code DC Tely (1) Sepsis (2) UTI (urinary tract infection) Status: Acute Qualifiers: Qualified Codes: N30.01 - Acute cystitis with hematuria (3) Paraplegia at T9 level (4) H/O gastric bypass (5) Rash Status: Acute (6) Hypoglycemia Status: Acute (7) T2DM (type 2 diabetes mellitus) Status: Chronic (8) Acute respiratory failure with hypoxia Status: Acute (9) Chronic mental illness (10) White catheter in place (11) Paresthesia of both legs Status: Acute (12) RLS (restless legs syndrome) Status: Chronic (13) Neurogenic bladder (14) Morbid obesity Status: Chronic (15) Fecal incontinence Clinical Quality Measures DVT/VTE Risk/Contraindication: Risk Factor Score Per Nursin RFS Level Per Nursing on Admit: 4+=Very High KATELYN JENSEN DO April 05, 2020 09:40
--- NOTE | 2020-04-05 09:55 | Physical Therapy Daily Note ---
PT Daily Note-Current Subjective Patient in bed pre tx, agrees to PT, has no complaints of pain at rest, will be co-treating with OT due to poor patient mobility, strength, endurance, paraplegia, the need to coordinate UE and LE during activity, decrease risk of falling. Appearance Patient in WC at bedside post tx with nurse call, phone, tray, all needs met. Sugar sling under patient for the trip back to bed. Mental Status Patient Orientation: Person, Place, Situation Transfers SCALE: Activities may be completed with or without assistive devices. 0-Ddfcmwudtd-hfaupwi completes the activity by him/herself with no assistance from a helper. 5-Set-up or Clean-up Assistance-helper sets up or cleans up; patient completes activity. [place] assists only prior to or following the activity. 4-Supervision or Touching Assistance-helper provides verbal cues and/or touching/steadying and/or contact guard assistance as patient completes activity. Assistance may be provided throughout the activity or intermittently. 3-Partial/Moderate Assistance-helper does LESS THAN HALF the effort. [place] lifts, holds or supports trunk or limbs, but provides less than half the effort. 2-Substantial/Maximal Assistance-helper does MORE THAN HALF the effort. [place] lifts or holds trunk or limbs and provides more than half the effort. 6-Jnsfdqsgh-jkxrwe does ALL the effort. Patient does none of the effort to com plete the activity. Or, the assistance of 2 or more helpers is required for the patient to complete the activity. If activity was not attempted, code reason: 7-Patient Refused. 9-Not Applicable-not attempted and the patient did not perform the activity before the current illness, exacerbation or injury. 10-Not Attempted due to Environmental Limitations-(lack of equipment, weather restraints, etc.). 88-Not Attempted due to Medical Conditions or Safety Concerns. Roll Left & Right (QC): 1 Chair/Kol-zw-Nwwkz Xfer(QC): 1 Patient practiced rolling from side to side for cleaning BM and getting new pad and sling under her. She had to practice rolling twice to each side. Patient can assist a little but not enough to be considered max assist. Patient was hoyered to at bedside. Treatments rolling, transfer Assessment Current Status: Poor Progress Patient not likely to improve in functional mobility more than what she is now due to SCI and severe morbid obesity and deconditioning. PT Manual Lathe Operator Goals Manual Lathe Operator Goals PT Manual Lathe Operator Goals Time Frame: April 07, 2020 Roll Left & Right (QC): 2 Chair/Hme-ld-Sdzdi Xfer(QC): 1 (establish sugar transfer with nursing. ) PT Plan Problem List Problem List: Activity Tolerance, Functional Strength, Safety, Balance, Gait, Transfer, Bed Mobility, ROM Treatment/Plan Treatment Plan: Continue Plan of Care Treatment Plan: Bed Mobility, Education, Functional Activity Regulo, Safety, Transfers Treatment Duration: April 07, 2020 Frequency: 5 times per week Estimated Hrs Per Day: .25 hour per day Patient and/or Family Agrees t: Yes Safety Risks/Education Patient Education: Transfer Techniques, Correct Positioning, Safety Issues Teaching Recipient: Patient Teaching Methods: Demonstration, Discussion Response to Teaching: Reinforcement Needed Time/GCodes Time In: 30 Time Out: 0946 Total Billed Treatment Time: 16 Total Billed Treatment 1 visit FA 16' Co-treated for 16'. PT worked on rolling, transfer, positioning during BM cleaning, OT worked on BM cleaning, assist with rolling and transfer. HIMANSHU MORGAN PT April 05, 2020 09:55
--- NOTE | 2020-04-05 10:08 | Occupational Ther Daily Note ---
OT Current Status-Daily Note Subjective Pt laying in bed at start of session, agreeable to OT/PT cotreat in order to transfer from bed to w/c. She did not complain of pain at rest. Mental Status/Objective Patient Orientation: Normal For Age ADL-Treatment Therapy Code Descriptions/Definitions Functional [place] Measure: 0=Not Assessed/NA 4=Minimal Assistance 1=Total Assistance 5=Supervision or Setup 2=Maximal Assistance 6=Modified [place] 3=Moderate Assistance 7=Complete IndependenceSCALE: Activities may be completed with or without assistive devices. 7-[id number]-ojjacdy completes the activity by him/herself with no assistance from a helper. 5-Set-up or Clean-up Assistance-helper sets up or cleans up; patient completes activity. Friendship assists only prior to or following the activity. 4-Supervision or Touching Assistance-helper provides verbal cues and/or touching/steadying and/or contact guard assistance as patient completes activity. Assistance may be provided throughout the activity or intermittently. 3-Partial/Moderate Assistance-helper does LESS THAN HALF the effort. Friendship lifts, holds or supports trunk or limbs, but provides less than half the effort. 2-Substantial/Maximal Assistance-helper does MORE THAN HALF the effort. Friendship lifts or holds trunk or limbs and provides more than half the effort. 7-Fgnzppnow-vytjbt does ALL the effort. Patient does none of the effort to complete the activity. Or, the assistance of 2 or more helpers is required for the patient to complete the activity. If activity was not attempted, code reason: 7-Patient Refused. 9-Not Applicable-not attempted and the patient did not perform the activity before the current illness, exacerbation or injury. 10-Not Attempted due to Environmental Limitations-(lack of equipment, weather restraints, etc.). 88-Not Attempted due to Medical Conditions or Safety Concerns. Toileting Hygiene (QC): 1 Other Treatment OT/PT cotreat due to poor patient mobility, strength, endurance, paraplegia, the need to coordinate UE and LE during activity, decrease risk of falling. OT focused on ADLs, positioning of sling, UE placement, and cues/sequencing while PT focused on laura transfer, overall gross movement, rolling side to side, and LE placement. Pt rolled side to side in order for OT to clean after pt had a BM, pt unable to tell she had a BM. Pt assisted slightly during roll but not enough to be considered max A. Sling placed, then pt transferred to w/c via laura. Post tx, pt seated upright in recliner, call light in reach and all needs met, sling left under pt for transfer back to bed later. Education OT Patient Education: Correct positioning, Energy conservation, Modified ADL techniques, Progress toward Goal/Update tx plan, Purpose of tx/functional activities Teaching Recipient: Patient Teaching Methods: Discussion Response to Teaching: Verbalize Understanding OT Short Term Goals Short Term Goals Time Frame: April 08, 2020 Eatin Oral hygiene: 3 OT Alf Goals Alf Goals Time Frame: April 15, 2020 Eating (QC): 4 Oral Hygiene (QC): 4 Additional Goals: 3-ImproveStrength/Regulo 1=Demonstrate adherence to instructed precautions during ADL tasks. 2=Patient will verbalize/demonstrate understanding of assistive devices/modifications for ADL. 3=Patient will improve strength/tolerance for activity to enable patient to perform ADL's. OT Education/Plan Problem List/Assessment Assessment: Decreased Activ Tolerance, Decreased UE Strength, Dependent Transfers, Impaired Bed Mobility, Impaired Funct Balance, Impaired I ADL's, Impaired Self-Care Skills Discharge Recommendations Plan/Recommendations: Continue POC Treatment Plan/Plan of Care Patient would benefit from OT for education, treatment and training to promote independence in ADL's, mobility, safety and/or upper extremity function for ADL's. Plan of Care: ADL Retraining, Functional Mobility, UE Funct Exercise/Act Treatment Duration: April 15, 2020 Frequency: 5 times per week Estimated Hrs Per Day: .25 hour per day Agreement: Yes Rehab Potential: Guarded Time/GCodes Start Time: 09:30 Stop Time: 09:46 Total Time Billed (hr/min): 16 Billed Treatment Time 1, FA (16') cotreat with PT x16' WOLF EPPERSON OT April 05, 2020 10:08
--- NOTE | 2020-04-05 13:49 | NUR ---
CM/SS: Visited with pt as to plan for discharge Plan: Pt will be discharged to a skilled facility; either [facility] or [facility] Summary: Both facilities had information on the pt. Awaiting a answer on if [facility] can take pt today. [facility] can as pt has been there previously. Pt is not sure which one she wants to go to. She would like a new start by going to another facility, but is open to going either place. Pt is aware that we are awaiting an answer from [facility] and she can determine which facility. Updated information faxed to [facility] (emailed) they report that pt has 80 skilled days left at this time. Call to [facility] - they are informed about the 80 skilled days they are calling insurance to determine coverage and will let us know something soon. Pt is informed of the above and is requested to determine what facility she would like to go to from here. She will call her family and give it some thought. This worker will follow up.
[2020-04-05 16:00] VITALS: BP 125/54
[2020-04-05 16:50] VITALS: BP 125/54
[2020-04-06] MEDS ORDERED: VITAMIN D2 1.25 MG (50,000 UNITS) CAP PO SCH (08:00)
== END 2020-04-05 16:50 | DRG 698 ==
LOC: EDUNIT# 11:50 → ER FS 11:53 → ICU 16:00 → 4TH 04-03 07:46
PROVIDERS: ADMIT Internal Medicine; ATTEND Internal Medicine
PROC: 02HV33Z Insertion of Infusion Device into Superior Vena Cava, Percutaneous Approach (ICD-10-PCS; principal; 2020-03-31)
DX: T83.511A Infection and inflammatory reaction due to indwelling urethral catheter, initial encounter (principal); A41.9 Sepsis, unspecified organism; R65.21 Severe sepsis with septic shock; N30.01 Acute cystitis with hematuria; J96.01 Acute respiratory failure with hypoxia; G82.22 Paraplegia, incomplete; Z68.43 Body mass index [BMI] 50.0-59.9, adult; T78.2XXA Anaphylactic shock, unspecified, initial encounter; R21 Rash and other nonspecific skin eruption; N31.9 Neuromuscular dysfunction of bladder, unspecified; R15.9 Full incontinence of feces; I49.9 Cardiac arrhythmia, unspecified; I11.0 Hypertensive heart disease with heart failure; I50.9 Heart failure, unspecified; E78.00 Pure hypercholesterolemia, unspecified; E11.42 Type 2 diabetes mellitus with diabetic polyneuropathy; E11.649 Type 2 diabetes mellitus with hypoglycemia without coma; E66.01 Morbid (severe) obesity due to excess calories; G25.81 Restless legs syndrome; K21.9 Gastro-esophageal reflux disease without esophagitis; F41.9 Anxiety disorder, unspecified; F31.9 Bipolar disorder, unspecified; R13.10 Dysphagia, unspecified; K42.9 Umbilical hernia without obstruction or gangrene; E83.42 Hypomagnesemia; E83.39 Other disorders of phosphorus metabolism; Z87.39 Personal history of other diseases of the musculoskeletal system and connective tissue; Z98.84 Bariatric surgery status; Z79.4 Long term (current) use of insulin; Z87.891 Personal history of nicotine dependence
CPT/HCPCS: 36415; 71045; 80048; 80053; 80076; 80202; 81000; 82010; 82962; 83605; 83735; 84100; 84443; 84484; 85025; 87040; 87081; 87088; 93005; 93306; 94640; 94760; 96361; 96374; 96375